=== PATIENT | female | born 1935 | race Caucasian/White ===

== ENCOUNTER → 2018-04-06 16:38 | Outpatient (CLI) | payer MEDICARE, BC, SELFPAY ==
--- NOTE | 2018-04-06 16:48 | DI.RAD.S_ITS ---
PROCEDURE: XR LUMBAR SPINE 2-3V INDICATIONS: LOW BACK PAIN TECHNIQUE: 3 views of the lumbar spine were acquired. COMPARISON: [facility], CT, KIDNEY/ URETER/BLADDER, 08/31/2017, 16:13. FINDINGS: Bones: There are 5 [id number]-fpfgjns lumbar vertebral bodies. There is grade I anterolisthesis at L4 on L5. A severe wedge compression deformity is present at L4 with approximately 50% vertebral body height loss. This is a new finding when compared with the prior CT dated 08/31/17. A moderate wedge compression deformity at L3 is redemonstrated, unchanged from the prior CT. Vertebral body height is otherwise preserved. Severe degenerative changes including intervertebral disc space narrowing, endplate sclerosis, facet sclerosis, and osteophytosis is present throughout the lumbar spine. Soft tissues: Overlying bowel gas pattern is normal. No suspicious soft tissue calcifications. IMPRESSION: 1. Severe wedge compression deformity of L4 which is new when compared with the prior comparison study dated 08/31/17. The acuity of this finding is unknown, but may be the etiology the patient's low back pain after fall. If further characterization is warranted, MRI of lumbar spine would be helpful to evaluate for marrow edema in the acute or subacute setting. Dictated by: Magalie Snyder M.D. on 04/06/2018 at 20:15 Approved by: Magalie Snyder M.D. on 04/06/2018 at 20:21
== END ==
PROVIDERS: Family Provider Internal Medicine; PCP Internal Medicine; Visit Provider Internal Medicine
DX: M54.5 Low back pain (principal)
CPT/HCPCS: 72100

== ENCOUNTER → 2018-04-20 14:22 | Outpatient (REF) | payer MEDICARE, BC, SELFPAY ==
[2018-04-20 14:27] LABS: RBC Urine None Seen (0-5/HPF)
[2018-04-20 14:33] LABS: Appearance Urine UA SL CLOUDY; Bilirubin Urine UA NEGATIVE (NEGATIVE); Color Urine UA YELLOW; Glucose Urine UA NEGATIVE (Normal); Ketones Urine UA NEGATIVE (NEGATIVE); Leukocyte Esterase Urine UA 2+ (NEGATIVE); Nitrite Urine UA POSITIVE (Negative); Occult Blood Urine UA TRACE-INTACT (Negative); Protein Urine UA NEGATIVE (Negative); Specific Gravity Urine UA 1.015 (1.000-1.035); Urobilinogen Urine UA 0.2 E.U./dL (0.2); pH Urine UA 5.5 (4.5-8.0)
[2018-04-20 14:37] LABS: Bacteria Urine Many (>30); WBC Urine 30-100/HPF (0-5/HPF)
== END ==
LOC: LAB 14:22
PROVIDERS: Family Provider Internal Medicine; PCP Internal Medicine; Visit Provider Internal Medicine
DX: R30.9 Painful micturition, unspecified (principal)
CPT/HCPCS: 81001

== ENCOUNTER → 2018-04-23 16:26 | Outpatient (CLI) | payer MEDICARE, BC, SELFPAY | PROVIDERS: Family Provider Internal Medicine; PCP Internal Medicine; Visit Provider Internal Medicine | DX: N39.0 Urinary tract infection, site not specified (principal) | CPT/HCPCS: 87077; 87086; 87186 ==

== ENCOUNTER → 2018-07-19 17:05 | Outpatient (CLI) | payer OTHER, SELFPAY ==
--- NOTE | 2018-07-19 | DI.RAD.S_ITS ---
PROCEDURE: XR LUMBAR SPINE 2-3V INDICATIONS: COMPRESSION FRACTURE TECHNIQUE: 3 views of the lumbar spine were acquired. COMPARISON: [facility], CR, XR LUMBAR SPINE 2-3V, 04/06/2018, 16:34. FINDINGS: Bones: 5 [id number] vertebrae are present. There is normal bony alignment. Compression fractures at the T10, T12, L3 and L4 levels appear unchanged compared to prior plain film series dated 04/06/18. No new compression fractures. Grade 1 spondylolisthesis L4-L5 redemonstrated. Multilevel disc degeneration, severe at the L4-L5 level. Moderate lower lumbar spine facet joint arthropathy. No suspicious bony lesions. Bones are osteopenic. Soft tissues: Overlying bowel gas pattern is normal. No suspicious soft tissue calcifications. IMPRESSION: Multilevel thoracolumbar compression fractures unchanged from prior plain film dated 04/06/18. Dictated by: Rohith MATHEW Interpreted: Mahnaz Resendiz MD on 07/20/2018 at 13:13 Approved by: Epifanio Colorado M.D. on 07/20/2018 at 13:21
== END ==
PROVIDERS: Family Provider Internal Medicine; PCP Internal Medicine; Visit Provider Psychiatry & Neurology Neurology
DX: S22.079A Unspecified fracture of T9-T10 vertebra, initial encounter for closed fracture (principal); S22.089A Unspecified fracture of T11-T12 vertebra, initial encounter for closed fracture; S32.039A Unspecified fracture of third lumbar vertebra, initial encounter for closed fracture; S32.049A Unspecified fracture of fourth lumbar vertebra, initial encounter for closed fracture
CPT/HCPCS: 72100

== ENCOUNTER → 2018-08-10 12:17 | Outpatient (CLI) | payer OTHER, SELFPAY ==
--- NOTE | 2018-08-10 | DI.MRI.S_ITS ---
PROCEDURE: MR PELVIS WO CON INDICATIONS: LOW BACK PAIN TECHNIQUE: Noncontrast coronal and axial T1 spin echo and STIR, sagittal T2 weighted, coronal oblique T1 and STIR, through the bony pelvis. COMPARISON: [facility], CR, XR LUMBAR SPINE 2-3V, 04/06/2018, 16:34. [facility], CT, KIDNEY/ URETER/BLADDER, 08/31/2017, 16:13. FINDINGS: Image quality: There is uncontrollable motion artifact despite multiple attempts. Several pulse sequences are rendered nondiagnostic due to excessive motion artifact. Bones: Bone marrow of the pelvic ring, sacrum, and proximal femurs show grossly normal signal throughout. Chronic-appearing L3 and L4 compression fractures are seen and probably unchanged since 04/06/18. Bilateral hip degeneration, left greater than right. No intraosseous lesions identified in the non-obscured pelvis. There is lower lumbar degenerative disc disease. Tendons: The gluteus medius and minimus tendons are obscured. Proximal iliotibial band appears grossly intact although partially obscured by motion artifact. The iliopsoas tendons are largely obscured by motion artifact. Hamstring origins are not well-seen due to motion artifact although no definite T2 hyperintensity in these regions. Soft tissues: Visualized muscles demonstrate normal bulk and internal signal. No joint effusions. No free pelvic fluid. Bladder wall thickness is normal. Genitourinary structures and bowel loops appear normal where visualized. IMPRESSION: Severe motion artifact renders examination nearly nondiagnostic as above. If the clinical concern is for fracture, a CT could be considered which is less prone to motion artifact. Chronic-appearing L3 and L4 compression fractures without definite vertebral body height loss since 04/06/18. Bilateral hip degeneration, left greater than right. Dictated by: Jayden Chan M.D. on 08/10/2018 at 14:13 Approved by: Jayden Chan M.D. on 08/10/2018 at 14:24
== END ==
PROVIDERS: Family Provider Internal Medicine; PCP Internal Medicine; Visit Provider Internal Medicine
DX: M54.5 Low back pain (principal); M16.0 Bilateral primary osteoarthritis of hip; M48.56XA Collapsed vertebra, not elsewhere classified, lumbar region, initial encounter for fracture
CPT/HCPCS: 72195

== ENCOUNTER 2019-05-03 14:30 | Outpatient (RCR) | payer OTHER, SELFPAY ==
--- NOTE | 2018-07-25 14:30 | PT.OPPOC ---
Current Diagnoses Multiple sclerosis (07/25/18) Unspecified osteoarthritis, unspecified site (07/25/18) Stiffness of left knee, not elsewhere classified (07/25/18) Muscle weakness (generalized) (07/25/18) Unspecified abnormalities of gait and mobility (07/25/18) Provider Visit Care Team Role Provider Type Blayne Sims MD Attending Provider Physician Family Provider Primary Care Provider Specialty: Internal Medicine Address: [address] [place] [address], [facility] Email: Plan Of Care PT-OP-T Assessment and Plan Start: 07/27/18 11:43 Freq: Status: Active Protocol: Document 07/25/18 14:30 RCC (Rec: 07/27/18 15:47 RCC [email or web address]) Physical Therapy Assessment Rehab Potential Rehabilitation Potential Good Evaluation Complexity Number of Personal Factors/Comorbidities 3 or More Number of Body Systems Impaired 4 or More Clinical Presentation at Evaluation Evolving Impairments Impairments Activity Tolerance Balance Functional Activities Functional Mobility Gait Pain ROM Soft Tissue Mobility Strength Goals Four Impairment Gait/Timed Up and Go Short Term Goal (STG) Timed Up and Go to <30 seconds . STG Duration 6 weeks Weather Reporter Goal (LTG) Timed Up and Go to <20 seconds to demonstrate improved gait speed, and decreasing fall risk. LTG Duration 12 weeks Three Impairment L knee ROM Snf Goal (LTG) 0-120 degrees of the L knee to improve gait and functional motion. Two Impairment pain in low back 7/10 Short Term Goal (STG) 5/10 pain reported in low back . STG Duration 6 weeks Snf Goal (LTG) 3/10 pain reported in low back or less to demonstrate improved thoracolumbar stability. LTG Duration 12 weeks One Impairment Lower Extremity Functional Scale (14/80) Short Term Goal (STG) Score: 20/80 STG Duration 6 weeks Snf Goal (LTG) Score: 25/80 or greater to demonstrate improvements with functional mobility. LTG Duration 12 weeks Assessment Summary Assessment Pt presents with impaired mobility and posture secondary to multiple compression fractures in the thoracolumbar spine. Pt with a h/o L distal femur fx, with limited knee ROM also contributing to impairments with gait and balance. Pt's Timed Up and Go score is indicative of a high fall risk. Pt is a good candidate for physical therapy , and would greatly benefit from skilled physical therapy intervention to progress her ROM, strength, gait, and balance to improve safety and overall function. Physical Therapy Plan Frequency and Duration Frequency of Treatment 2x/Week Duration of Treatment 12 weeks Plan of Care Start Date 07/25/18 Plan of Care End Date 10/17/18 Therapeutic Interventions Therapeutic Interventions Aquatic Therapy Balance Training Gait Training Home Exercise Program Joint Mobilizations Manual Therapy Neuromuscular Re-education Patient/Caregiver Education Self-Care/Home Management Soft Tissue Mobilization Taping Therapeutic Activities Therapeutic Exercises Modalities Cold Pack/Ice Massage Next Visit Focus/Plan Next Note Type Treatment Note Next Visit Plan prog. gait, standing balance, core stability Plan of Care Dates Plan of Care Start Date 07/25/18 Plan of Care End Date 10/17/18 Please Sign and Return: I have reviewed this Plan of Care and certify that the skilled therapy services above are required to meet the patient?s needs. Physician Signature Date Printed Name and Credentials Clinical Instructor Signature Printed Name and Credentials
--- NOTE | 2018-07-25 14:30 | PT.OIE ---
Current Diagnoses Multiple sclerosis (07/25/18) Unspecified osteoarthritis, unspecified site (07/25/18) Stiffness of left knee, not elsewhere classified (07/25/18) Muscle weakness (generalized) (07/25/18) Unspecified abnormalities of gait and mobility (07/25/18) Provider Visit Care Team Role Provider Type Blayne Sims MD Attending Provider Physician Family Provider Primary Care Provider Specialty: Internal Medicine Address: [address] [place] [address], [facility] Email: Physical Therapy Initial Evaluation PT-OP-A Visit Information Start: 07/27/18 11:43 Freq: Status: Active Protocol: Document 07/25/18 14:30 RCC (Rec: 07/27/18 11:58 RCC [email or web address]) Out-Patient Physical Therapy Visit Information Visit Information Visit Type Initial Evaluation Visit Start Time 13:45 Visit Stop Time 14:30 Total Visit Minutes 45 Visit Number 1 Number of TOBACCO BUYER Visits 0 Evaluation Information Evaluation Date 07/25/18 PT-OP-B Current Condition Start: 07/27/18 11:43 Freq: Status: Active Protocol: Document 07/25/18 14:30 RCC (Rec: 07/27/18 11:58 RCC [email or web address]) Current Condition History of Current Condition Onset Date 2016 Current Complaints L knee pain/stiffness, low back pain, impaired mobility History of Current Condition Pt is a 83 y/o female presenting to physical therapy c/o L knee pain and stiffness , low back pain, and impaired mobility. Pt has a h/o L distal femur fracture with ORIF 2016. 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 Pt has not fallen in the past 3+ months. Radiograph of lumbar spine showed compression fx's at T10, T12, L3 and L4, as well as grade 1 spondylolisthesis @ L4-5. Prior Treatments and Tests PT in past which she was d/c for multiple falls, unsafe to attend outpatient facility. Radiograph for spine showed compression fx @ T10, T12, L3 and L4. Treatment Goals Patient/Caregiver Goals improve mobility, decrease pain, improve function Prior Functional Status Baseline Function- ADL's Modified Independent Baseline Function- Mobility Modified Independent Baseline Function- Gait short distance outdoors indep. Baseline Function- Other pt was doing her own shopping prior to L distal femur fx and ORIF 07/2017 Current Functional Impairments (Reported) Functional Limitations- ADL's some assistance with cleaning Functional Limitations- Mobility/Gait modified indep. short outdoor gait on level surfaces only Personal Factors Other Personal Factors That May Effect Multiple Sclerosis, L distal Therapy/Recovery femur fx s/p ORIF 07/2017, h/o multiple falls, multiple compression fx's PT-OP-C Subjective Start: 07/27/18 11:43 Freq: Status: Active Protocol: Document 07/25/18 14:30 RCC (Rec: 07/27/18 11:58 RCC [email or web address]) Patient Questionnaires Lower Extremity Functional Scale LEFS Score 14 LEFS Impairment 80 to 99% Impaired (Score 1-16 ) OP-PT Pain Assessment Location Bilateral Lower Back Intensity 7 Scale Used Numeric (1 - 10) PT-OP-D Balance Start: 07/27/18 11:43 Freq: Status: Active Protocol: Document 07/25/18 14:30 RCC (Rec: 07/27/18 12:01 RCC [email or web address]) Balance Tests Single Limb Standing Single Limb- Right unable Single Limb- Left unable PT-OP-E Functional Tests Start: 07/27/18 11:43 Freq: Status: Active Protocol: Document 07/25/18 14:30 RCC (Rec: 07/27/18 12:02 RCC [email or web address]) Functional Tests Timed Up and Go (TUG) Score 32.18 Comments 4WW TUG Impairment Rating 100% Impaired (Score 20) PT-OP-G Mobility & Gait Start: 07/27/18 11:43 Freq: Status: Active Protocol: Document 07/25/18 14:30 RCC (Rec: 07/27/18 15:47 RCC [email or web address]) OP Mobility Evaluation Functional Movements Squats unable to perform consecutively. OP Gait Assessment Gait Gait Assistance Required: Contact Guard Assist Distance (Feet) (feet) 200 Assistive Devices Assistive Device Front Wheeled Walker Gait Deviations General Gait Pattern Antalgic Decreased Stride Length Decreased Feet Clearance Flexed Trunk Factors Limiting Gait Function Factors Limiting Gait Function Decreased Activity Tolerance Decreased Strength Limited Range of Motion Poor Balance PT-OP-K Range of Motion Start: 07/27/18 11:43 Freq: Status: Active Protocol: Document 07/25/18 14:30 RCC (Rec: 07/27/18 15:47 RCC [email or web address]) Knee Goniometric Range of Motion Knee Measured in Degrees Right Knee ROM WFL Yes Patient Position Supine Flexion Active (degrees) 125 Extension Active (degrees) 0 Left Knee ROM WFL Yes Patient Position Supine Flexion Active (degrees) 100 Extension Active (degrees) 9 PT-OP-L Special Tests Start: 07/27/18 11:43 Freq: Status: Active Protocol: Document 07/25/18 14:30 RCC (Rec: 07/27/18 15:47 [facility] [email or web address]) Special Tests Lumbar Spine Special Tests Straight Leg Raise Test Results positive on the L @ 45 deg PT-OP-M Strength Start: 07/27/18 11:43 Freq: Status: Active Protocol: Document 07/25/18 14:30 [facility] (Rec: 07/27/18 15:47 [facility] [email or web address]) Hip Strength Hip Manual Muscle Testing Left Flexion (L2) 3+ Fair+ Right Flexion (L2) 4 Good Knee Strength Knee Manual Muscle Testing Right Flexion (S2) 4+ Good+ Extension (L3) 4+ Good+ Left Flexion (S2) 4 Good Extension (L3) 3+ Fair+ Ankle/Foot Strength Ankle and Foot Manual Muscle Testing Right Dorsiflexion (L4) 5 Normal Left Dorsiflexion (L4) 4 Good PT-OP-T Assessment and Plan Start: 07/27/18 11:43 Freq: Status: Active Protocol: Document 07/25/18 14:30 [facility] (Rec: 07/27/18 15:47 [facility] [email or web address]) Physical Therapy Assessment Rehab Potential Rehabilitation Potential Good Evaluation Complexity Number of Personal Factors/Comorbidities 3 or More Number of Body Systems Impaired 4 or More Clinical Presentation at Evaluation Evolving Impairments Impairments Activity Tolerance Balance Functional Activities Functional Mobility Gait Pain ROM Soft Tissue Mobility Strength Goals Four Impairment Gait/Timed Up and Go Short Term Goal (STG) Timed Up and Go to <30 seconds . STG Duration 6 weeks Manager Data Center Goal (LTG) Timed Up and Go to <20 seconds to demonstrate improved gait speed, and decreasing fall risk. LTG Duration 12 weeks Three Impairment L knee ROM Half-Way Goal (LTG) 0-120 degrees of the L knee to improve gait and functional motion. Two Impairment pain in low back 7/10 Short Term Goal (STG) 5/10 pain reported in low back . STG Duration 6 weeks Manager Data Center Goal (LTG) 3/10 pain reported in low back or less to demonstrate improved thoracolumbar stability. LTG Duration 12 weeks One Impairment Lower Extremity Functional Scale (14/80) Short Term Goal (STG) Score: 20/80 STG Duration 6 weeks Half-Way Goal (LTG) Score: 25/80 or greater to demonstrate improvements with functional mobility. LTG Duration 12 weeks Assessment Summary Assessment Pt presents with impaired mobility and posture secondary to multiple compression fractures in the thoracolumbar spine. Pt with a h/o L distal femur fx, with limited knee ROM also contributing to impairments with gait and balance. Pt's Timed Up and Go score is indicative of a high fall risk. Pt is a good candidate for physical therapy , and would greatly benefit from skilled physical therapy intervention to progress her ROM, strength, gait, and balance to improve safety and overall function. Physical Therapy Plan Frequency and Duration Frequency of Treatment 2x/Week Duration of Treatment 12 weeks Plan of Care Start Date 07/25/18 Plan of Care End Date 10/17/18 Therapeutic Interventions Therapeutic Interventions Aquatic Therapy Balance Training Gait Training Home Exercise Program Joint Mobilizations Manual Therapy Neuromuscular Re-education Patient/Caregiver Education Self-Care/Home Management Soft Tissue Mobilization Taping Therapeutic Activities Therapeutic Exercises Modalities Cold Pack/Ice Massage Next Visit Focus/Plan Next Note Type Treatment Note Next Visit Plan prog. gait, standing balance, core stability
--- NOTE | 2018-08-09 16:45 | PT.OTN ---
Current Diagnoses Multiple sclerosis (08/09/18) Unspecified osteoarthritis, unspecified site (08/09/18) Physical Therapy Treatment Note PT-OP-A Visit Information Start: 07/27/18 11:43 Freq: Status: Active Protocol: Document 08/09/18 16:45 RCC (Rec: 08/10/18 09:01 RCC [email or web address]) Out-Patient Physical Therapy Visit Information Visit Information Visit Type Treatment Note Visit Start Time 15:50 Visit Stop Time 16:45 Total Visit Minutes 55 Visit Number 2 Number of HIDE CURER Visits 0 Evaluation Information Evaluation Date 07/25/18 PT-OP-B Current Condition Start: 07/27/18 11:43 Freq: Status: Active Protocol: Document 07/25/18 14:30 RCC (Rec: 07/27/18 11:58 RCC [email or web address]) Current Condition History of Current Condition Onset Date 2016 Current Complaints L knee pain/stiffness, low back pain, impaired mobility History of Current Condition Pt is a 83 y/o female presenting to physical therapy c/o L knee pain and stiffness , low back pain, andimpaired mobility. Pt has a h/o L distal femur fracture with ORIF 2016. 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 Pt has not fallen in the past 3+ months. Radiograph of lumbar spine showed compression fx's at T10, T12, L3 and L4, as well as grade 1 spondylolisthesis @ L4-5. Prior Treatments and Tests PT in past which she was d/c for multiple falls, unsafe to attend outpatient facility. Radiograph for spine showed compression fx @ T10, T12, L3 and L4. Treatment Goals Patient/Caregiver Goals improve mobility, decrease pain, improve function Prior Functional Status Baseline Function- ADL's Modified Independent Baseline Function- Mobility Modified Independent Baseline Function- Gait short distance outdoors indep. Baseline Function- Other pt was doing her own shopping prior to L distal femur fx and ORIF 07/2017 Current Functional Impairments (Reported) Functional Limitations- ADL's some assistance with cleaning Functional Limitations- Mobility/Gait modified indep. short outdoor gait on level surfaces only Personal Factors Other Personal Factors That May Effect Multiple Sclerosis, L distal Therapy/Recovery femur fx s/p ORIF 07/2017, h/o multiple falls, multiple compression fx's PT-OP-C Subjective Start: 07/27/18 11:43 Freq: Status: Active Protocol: Document 08/09/18 16:45 RCC (Rec: 08/10/18 09:01 RCC [email or web address]) OP-PT Subjective Patient Comments Patient Comments pt states she is having a difficult time with her L knee ROM. She is having an MRI on her back tomorrow. PT-OP-D Balance Start: 07/27/18 11:43 Freq: Status: Active Protocol: Document 07/25/18 14:30 RCC (Rec: 07/27/18 12:01 RCC [email or web address]) Balance Tests Single Limb Standing Single Limb- Right unable Single Limb- Left unable PT-OP-E Functional Tests Start: 07/27/18 11:43 Freq: Status: Active Protocol: Document 07/25/18 14:30 RCC (Rec: 07/27/18 12:02 RCC [email or web address]) Functional Tests Timed Up and Go (TUG) Score 32.18 Comments 4WW TUG Impairment Rating 100% Impaired (Score 20) PT-OP-G Mobility & Gait Start: 07/27/18 11:43 Freq: Status: Active Protocol: Document 07/25/18 14:30 RCC (Rec: 07/27/18 15:47 RCC [email or web address]) OP Mobility Evaluation Functional Movements Squats unable to perform consecutively. OP Gait Assessment Gait Gait Assistance Required: Contact Guard Assist Distance (Feet) 200 Assistive Devices Assistive Device Front Wheeled Walker Gait Deviations General Gait Pattern Antalgic Decreased Stride Length Decreased Feet Clearance Flexed Trunk Factors Limiting Gait Function Factors Limiting Gait Function Decreased Activity Tolerance Decreased Strength Limited Range of Motion Poor Balance PT-OP-K Range of Motion Start: 07/27/18 11:43 Freq: Status: Active Protocol: Document 07/25/18 14:30 RCC (Rec: 07/27/18 15:47 RCC [email or web address]) Knee Goniometric Range of Motion Knee Measured in Degrees Right Knee ROM WFL Yes Patient Position Supine Flexion Active (degrees) 125 Extension Active (degrees) 0 Left Knee ROM WFL Yes Patient Position Supine Flexion Active (degrees) 100 Extension Active (degrees) 9 PT-OP-L Special Tests Start: 07/27/18 11:43 Freq: Status: Active Protocol: Document 07/25/18 14:30 RCC (Rec: 07/27/18 15:47 RCC [email or web address]) Special Tests Lumbar Spine Special Tests Straight Leg Raise Test Results positive on the L @ 45 deg PT-OP-M Strength Start: 07/27/18 11:43 Freq: Status: Active Protocol: Document 07/25/18 14:30 RCC (Rec: 07/27/18 15:47 RCC [email or web address]) Hip Strength Hip Manual Muscle Testing Left Flexion (L2) 3+ Fair+ Right Flexion (L2) 4 Good Knee Strength Knee Manual Muscle Testing Right Flexion (S2) 4+ Good+ Extension (L3) 4+ Good+ Left Flexion (S2) 4 Good Extension (L3) 3+ Fair+ Ankle/Foot Strength Ankle and Foot Manual Muscle Testing Right Dorsiflexion (L4) 5 Normal Left Dorsiflexion (L4) 4 Good PT-OP-Q Treatments Start: 07/27/18 11:43 Freq: Status: Active Protocol: Document 08/09/18 16:45 RCC (Rec: 08/10/18 09:01 RCC [email or web address]) Cardio Equipment Bicycle (Upright) Duration (Minutes) 10 Resistance 1 Other for ROM Gym Equipment Shuttle Recovery Bilateral Squats Resistance 25 Shuttle Recovery Platform Stable Reps/Time 2x15 Therapeutic Exercises Supine Exercises QS Supine Exercise Name quad set Side left Standing Exercises HC stretch Standing Exercise Name heel cord stretch Side bilateral Equipment Used DAGO HS stretch Standing Exercise Name hamstring stretch @ stairs Side left Comments neutral back VC Manual Therapy Treatment Soft Tissue Mobilization scar tissue Body Location lateral L thigh Mobilization Type Other Intensity/Depth Moderate Body Position Hooklying Joint Mobilizations PF Joint patellofemoral Direction medial, inf, superior Grade III Body Position Supine Taping kinesiotape Body Location L knee Treatment Focus medial patellar tracking Type of Tape Kinesio Tape Comments 2 Y strips anterior knee, 1 Y strip for medial patellar glide Neuro Re-Education Treatment Balance Activities balance board Details A/P and lateral standing in // bars Comments weight shifting A/P and lateral, static balance PT-OP-R Modalities Start: 07/27/18 11:43 Freq: Status: Active Protocol: Document 08/09/18 16:45 RCC (Rec: 08/10/18 09:01 RCC [email or web address]) Hot Pack/Cold Pack Treatment Cold Pack Location low back Patient Position Hooklying Treatment Duration (minutes) 10 Patient Tolerance Good Comments bolster PT-OP-T Assessment and Plan Start: 07/27/18 11:43 Freq: Status: Active Protocol: Document 08/09/18 16:45 RCC (Rec: 08/10/18 09:01 RCC [email or web address]) Physical Therapy Assessment Assessment Summary Assessment Pt with significant stiffness in the L patellofemoral joint, limiting her knee ROM and function. Emphasis with standing balance on activating transverse abdominals and low back posture in standing stretching. Physical Therapy Plan Frequency and Duration Frequency of Treatment 2x/Week Duration of Treatment 12 weeks Plan of Care Start Date 07/25/18 Plan of Care End Date 10/17/18 Next Visit Focus/Plan Next Note Type Treatment Note Next Visit Plan prog. core stability, log roll
--- NOTE | 2018-08-16 15:15 | PT.OTN ---
Current Diagnoses Multiple sclerosis (08/16/18) Unspecified osteoarthritis, unspecified site (08/16/18) Physical Therapy Treatment Note PT-OP-A Visit Information Start: 07/27/18 11:43 Freq: Status: Active Protocol: Document 08/16/18 15:15 [facility] (Rec: 08/17/18 14:27 [facility] [email or web address]) Out-Patient Physical Therapy Visit Information Visit Information Visit Type Treatment Note Visit Start Time 14:37 Visit Stop Time 15:15 Total Visit Minutes 38 Visit Number 3 Number of [employer] Visits 0 Evaluation Information Evaluation Date 07/25/18 PT-OP-B Current Condition Start: 07/27/18 11:43 Freq: Status: Active Protocol: Document 07/25/18 14:30 RCC (Rec: 07/27/18 11:58 [facility] [email or web address]) Current Condition History of Current Condition Onset Date 2016 Current Complaints L knee pain/stiffness, low back pain, impaired mobility History of Current Condition Pt is a 83 y/o female presenting to physical therapy c/o L knee pain and stiffness , low back pain, andimpaired mobility. Pt has a h/o L distal femur fracture with ORIF 2016. 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 Pt has not fallen in the past 3+ months. Radiograph of lumbar spine showed compression fx's at T10, T12, L3 and L4, as well as grade 1 spondylolisthesis @ L4-5. Prior Treatments and Tests PT in past which she was d/c for multiple falls, unsafe to attend outpatient facility. Radiograph for spine showed compression fx @ T10, T12, L3 and L4. Treatment Goals Patient/Caregiver Goals improve mobility, decrease pain, improve function Prior Functional Status Baseline Function- ADL's Modified Independent Baseline Function- Mobility Modified Independent Baseline Function- Gait short distance outdoors indep. Baseline Function- Other pt was doing her own shopping prior to L distal femur fx and ORIF 07/2017 Current Functional Impairments (Reported) Functional Limitations- ADL's some assistance with cleaning Functional Limitations- Mobility/Gait modified indep. short outdoor gait on level surfaces only Personal Factors Other Personal Factors That May Effect Multiple Sclerosis, L distal Therapy/Recovery femur fx s/p ORIF 07/2017, h/o multiple falls, multiple compression fx's PT-OP-C Subjective Start: 07/27/18 11:43 Freq: Status: Active Protocol: Document 08/16/18 15:15 RCC (Rec: 08/17/18 14:27 [facility] [email or web address]) OP-PT Subjective Patient Comments Patient Comments Pt states that her L knee has been sore. She still does not feel secure walking without 4WW. PT-OP-D Balance Start: 07/27/18 11:43 Freq: Status: Active Protocol: Document 07/25/18 14:30 RCC (Rec: 07/27/18 12:01 [facility] [email or web address]) Balance Tests Single Limb Standing Single Limb- Right unable Single Limb- Left unable PT-OP-E Functional Tests Start: 07/27/18 11:43 Freq: Status: Active Protocol: Document 07/25/18 14:30 [facility] (Rec: 07/27/18 12:02 [facility] [email or web address]) Functional Tests Timed Up and Go (TUG) Score 32.18 Comments 4WW TUG Impairment Rating 100% Impaired (Score 20) PT-OP-F Manual Assessment Start: 07/27/18 11:43 Freq: Status: Active Protocol: Document 08/16/18 15:15 RCC (Rec: 08/17/18 14:27 [facility] [email or web address]) Manual Assessments Joint Mobility Assessment Joint Mobility Assessment hypomobility L patellofemoral joint medial, inferior and superior glide PT-OP-G Mobility & Gait Start: 07/27/18 11:43 Freq: Status: Active Protocol: Document 07/25/18 14:30 RCC (Rec: 07/27/18 15:47 [facility] [email or web address]) OP Mobility Evaluation Functional Movements Squats unable to perform consecutively. OP Gait Assessment Gait Gait Assistance Required: Contact Guard Assist Distance (Feet) 200 Assistive Devices Assistive Device Front Wheeled Walker Gait Deviations General Gait Pattern Antalgic Decreased Stride Length Decreased Feet Clearance Flexed Trunk Factors Limiting Gait Function Factors Limiting Gait Function Decreased Activity Tolerance Decreased Strength Limited Range of Motion Poor Balance PT-OP-K Range of Motion Start: 07/27/18 11:43 Freq: Status: Active Protocol: Document 07/25/18 14:30 RCC (Rec: 07/27/18 15:47 [facility] [email or web address]) Knee Goniometric Range of Motion Knee Measured in Degrees Right Knee ROM WFL Yes Patient Position Supine Flexion Active (degrees) 125 Extension Active (degrees) 0 Left Knee ROM WFL Yes Patient Position Supine Flexion Active (degrees) 100 Extension Active (degrees) 9 PT-OP-L Special Tests Start: 07/27/18 11:43 Freq: Status: Active Protocol: Document 07/25/18 14:30 RCC (Rec: 07/27/18 15:47 [facility] [email or web address]) Special Tests Lumbar Spine Special Tests Straight Leg Raise Test Results positive on the L @ 45 deg PT-OP-M Strength Start: 07/27/18 11:43 Freq: Status: Active Protocol: Document 07/25/18 14:30 RCC (Rec: 07/27/18 15:47 [facility] [email or web address]) Hip Strength Hip Manual Muscle Testing Left Flexion (L2) 3+ Fair+ Right Flexion (L2) 4 Good Knee Strength Knee Manual Muscle Testing Right Flexion (S2) 4+ Good+ Extension (L3) 4+ Good+ Left Flexion (S2) 4 Good Extension (L3) 3+ Fair+ Ankle/Foot Strength Ankle and Foot Manual Muscle Testing Right Dorsiflexion (L4) 5 Normal Left Dorsiflexion (L4) 4 Good PT-OP-Q Treatments Start: 07/27/18 11:43 Freq: Status: Active Protocol: Document 08/16/18 15:15 RCC (Rec: 08/17/18 14:27 RCC [email or web address]) Cardio Equipment Recumbent Elliptical (Letsdecco) Duration (Minutes) 6 Resistance 1 Therapeutic Exercises Supine Exercises LTR Supine Exercise Name lower trunk rotation Side bilateral Equipment Used 55 cm ball Reps/Minutes 10 each direction TrAb activation Supine Exercise Name transverse abdominal activation Side bilateral Reps/Minutes 15 Comments 5 sec hold DKC Supine Exercise Name knee flex/ext on 55 cm ball Side bilateral QS Supine Exercise Name quad set Side left Standing Exercises HC stretch Standing Exercise Name heel cord stretch Side bilateral Equipment Used DAGO Manual Therapy Treatment Soft Tissue Mobilization L quadriceps Body Location L quadriceps Mobilization Type Rolling Intensity/Depth Moderate Body Position Hooklying scar tissue Body Location lateral L thigh Mobilization Type Other Intensity/Depth Moderate Body Position Hooklying Joint Mobilizations PF Joint patellofemoral Direction medial, inf, superior Grade III Body Position Supine PT-OP-R Modalities Start: 07/27/18 11:43 Freq: Status: Active Protocol: Document 08/09/18 16:45 RCC (Rec: 08/10/18 09:01 RCC [email or web address]) Hot Pack/Cold Pack Treatment Cold Pack Location low back Patient Position Hooklying Treatment Duration (minutes) 10 Patient Tolerance Good Comments arelisster PT-OP-T Assessment and Plan Start: 07/27/18 11:43 Freq: Status: Active Protocol: Document 08/16/18 15:15 RCC (Rec: 08/17/18 14:27 RCC [email or web address]) Physical Therapy Assessment Assessment Summary Assessment Pt with overall tension and difficulty relaxing the LLE. L patella still sits lateral and tilting laterally. Improved L knee ROM after manual therapy, and tolerated recumbent stepper > upright bike (performed upright bike in past). Physical Therapy Plan Frequency and Duration Frequency of Treatment 2x/Week Duration of Treatment 12 weeks Plan of Care Start Date 07/25/18 Plan of Care End Date 10/17/18 Next Visit Focus/Plan Next Note Type Treatment Note Next Visit Plan prog. LE strength, TrAb activation with STS and movements.
--- NOTE | 2018-08-22 14:30 | PT.OTN ---
Current Diagnoses Multiple sclerosis (08/22/18) Unspecified osteoarthritis, unspecified site (08/22/18) Physical Therapy Treatment Note PT-OP-A Visit Information Start: 07/27/18 11:43 Freq: Status: Active Protocol: Document 08/22/18 14:30 RCC (Rec: 08/22/18 17:37 [facility] [email or web address]) Out-Patient Physical Therapy Visit Information Visit Information Visit Type Treatment Note Visit Start Time 13:45 Visit Stop Time 14:37 Total Visit Minutes 52 Visit Number 4 Number of [employer] Visits 0 Evaluation Information Evaluation Date 07/25/18 PT-OP-B Current Condition Start: 07/27/18 11:43 Freq: Status: Active Protocol: Document 07/25/18 14:30 RCC (Rec: 07/27/18 11:58 RCC [email or web address]) Current Condition History of Current Condition Onset Date 2016 Current Complaints L knee pain/stiffness, low back pain, impaired mobility History of Current Condition Pt is a 83 y/o female presenting to physical therapy c/o L knee pain and stiffness , low back pain, andimpaired mobility. Pt has a h/o L distal femur fracture with ORIF 2016. 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 Pt has not fallen in the past 3+ months. Radiograph of lumbar spine showed compression fx's at T10, T12, L3 and L4, as well as grade 1 spondylolisthesis @ L4-5. Prior Treatments and Tests PT in past which she was d/c for multiple falls, unsafe to attend outpatient facility. Radiograph for spine showed compression fx @ T10, T12, L3 and L4. Treatment Goals Patient/Caregiver Goals improve mobility, decrease pain, improve function Prior Functional Status Baseline Function- ADL's Modified Independent Baseline Function- Mobility Modified Independent Baseline Function- Gait short distance outdoors indep. Baseline Function- Other pt was doing her own shopping prior to L distal femur fx and ORIF 07/2017 Current Functional Impairments (Reported) Functional Limitations- ADL's some assistance with cleaning Functional Limitations- Mobility/Gait modified indep. short outdoor gait on level surfaces only Personal Factors Other Personal Factors That May Effect Multiple Sclerosis, L distal Therapy/Recovery femur fx s/p ORIF 07/2017, h/o multiple falls, multiple compression fx's PT-OP-C Subjective Start: 07/27/18 11:43 Freq: Status: Active Protocol: Document 08/22/18 14:30 [facility] (Rec: 08/22/18 17:37 [facility] [email or web address]) OP-PT Subjective Patient Comments Patient Comments Pt notes that her L knee has felt a little more loose this week. She is able to do her stationary cycling at home, about 5 min, which she used to be able to do for 30 min. Patient Reported Progress Improving PT-OP-D Balance Start: 07/27/18 11:43 Freq: Status: Active Protocol: Document 07/25/18 14:30 [facility] (Rec: 07/27/18 12:01 [facility] [email or web address]) Balance Tests Single Limb Standing Single Limb- Right unable Single Limb- Left unable PT-OP-E Functional Tests Start: 07/27/18 11:43 Freq: Status: Active Protocol: Document 07/25/18 14:30 [facility] (Rec: 07/27/18 12:02 [facility] [email or web address]) Functional Tests Timed Up and Go (TUG) Score 32.18 Comments 4WW TUG Impairment Rating 100% Impaired (Score 20) PT-OP-F Manual Assessment Start: 07/27/18 11:43 Freq: Status: Active Protocol: Document 08/16/18 15:15 [facility] (Rec: 08/17/18 14:27 [facility] [email or web address]) Manual Assessments Joint Mobility Assessment Joint Mobility Assessment hypomobility L patellofemoral joint medial, inferior and superior glide PT-OP-G Mobility & Gait Start: 07/27/18 11:43 Freq: Status: Active Protocol: Document 07/25/18 14:30 [facility] (Rec: 07/27/18 15:47 [facility] [email or web address]) OP Mobility Evaluation Functional Movements Squats unable to perform consecutively. OP Gait Assessment Gait Gait Assistance Required: Contact Guard Assist Distance (Feet) 200 Assistive Devices Assistive Device Front Wheeled Walker Gait Deviations General Gait Pattern Antalgic Decreased Stride Length Decreased Feet Clearance Flexed Trunk Factors Limiting Gait Function Factors Limiting Gait Function Decreased Activity Tolerance Decreased Strength Limited Range of Motion Poor Balance PT-OP-K Range of Motion Start: 07/27/18 11:43 Freq: Status: Active Protocol: Document 07/25/18 14:30 [facility] (Rec: 07/27/18 15:47 [facility] [email or web address]) Knee Goniometric Range of Motion Knee Measured in Degrees Right Knee ROM WFL Yes Patient Position Supine Flexion Active (degrees) 125 Extension Active (degrees) 0 Left Knee ROM WFL Yes Patient Position Supine Flexion Active (degrees) 100 Extension Active (degrees) 9 PT-OP-L Special Tests Start: 07/27/18 11:43 Freq: Status: Active Protocol: Document 07/25/18 14:30 [facility] (Rec: 07/27/18 15:47 [facility] [email or web address]) Special Tests Lumbar Spine Special Tests Straight Leg Raise Test Results positive on the L @ 45 deg PT-OP-M Strength Start: 07/27/18 11:43 Freq: Status: Active Protocol: Document 07/25/18 14:30 [facility] (Rec: 07/27/18 15:47 [facility] [email or web address]) Hip Strength Hip Manual Muscle Testing Left Flexion (L2) 3+ Fair+ Right Flexion (L2) 4 Good Knee Strength Knee Manual Muscle Testing Right Flexion (S2) 4+ Good+ Extension (L3) 4+ Good+ Left Flexion (S2) 4 Good Extension (L3) 3+ Fair+ Ankle/Foot Strength Ankle and Foot Manual Muscle Testing Right Dorsiflexion (L4) 5 Normal Left Dorsiflexion (L4) 4 Good PT-OP-Q Treatments Start: 07/27/18 11:43 Freq: Status: Active Protocol: Document 08/22/18 14:30 RCC (Rec: 08/22/18 17:37 RCC [email or web address]) Cardio Equipment Recumbent Elliptical (Biodex) Duration (Minutes) 6 Resistance 1 Seat Position 7 Gym Equipment Shuttle Recovery Bilateral Squats Resistance 50 Shuttle Recovery Platform Stable Reps/Time 2x15 Therapeutic Exercises Supine Exercises SLR Supine Exercise Name straight leg raise (flexion)- neutral and ER of LLE Side left Reps/Minutes 8 each Bridging Supine Exercise Name bridging Side bilateral Reps/Minutes 10 LTR Supine Exercise Name lower trunk rotation Side bilateral Equipment Used 55 cm ball Reps/Minutes 10 each direction TrAb activation Supine Exercise Name transverse abdominal activation Side bilateral Equipment Used 55 cm ball Reps/Minutes 15 Comments 5 sec hold DKC Supine Exercise Name knee flex/ext on 55 cm ball Side bilateral Manual Therapy Treatment Soft Tissue Mobilization L quadriceps Body Location L quadriceps Mobilization Type Rolling Intensity/Depth Moderate Body Position Hooklying scar tissue Body Location lateral L thigh Mobilization Type Other Intensity/Depth Moderate Body Position Hooklying Joint Mobilizations PF Joint patellofemoral Direction medial, inf, superior Grade III Body Position Supine PT-OP-R Modalities Start: 07/27/18 11:43 Freq: Status: Active Protocol: Document 08/22/18 14:30 RCC (Rec: 08/22/18 17:37 [facility] [email or web address]) Hot Pack/Cold Pack Treatment Cold Pack Location low back Patient Position Hooklying Treatment Duration (minutes) 10 Patient Tolerance Good Comments bolster PT-OP-T Assessment and Plan Start: 07/27/18 11:43 Freq: Status: Active Protocol: Document 08/22/18 14:30 RCC (Rec: 08/22/18 17:37 [facility] [email or web address]) Physical Therapy Assessment Assessment Summary Assessment Pt's L patellofemoral joint less hypomobile today, and increased tolerance to knee flexion with recumbent bike and leg press. Her L patella is still severely tilted laterally, and requires reminders for TrAb activation with activities. Physical Therapy Plan Frequency and Duration Frequency of Treatment 2x/Week Duration of Treatment 12 weeks Plan of Care Start Date 07/25/18 Plan of Care End Date 10/17/18 Next Visit Focus/Plan Next Note Type Treatment Note Next Visit Plan prog. core stability and L knee ROM and strength
--- NOTE | 2018-08-24 14:30 | PT.OTN ---
Current Diagnoses Multiple sclerosis (08/24/18) Unspecified osteoarthritis, unspecified site (08/24/18) Physical Therapy Treatment Note PT-OP-A Visit Information Start: 07/27/18 11:43 Freq: Status: Active Protocol: Document 08/24/18 14:30 RCC (Rec: 08/26/18 13:21 RCC [email or web address]) Out-Patient Physical Therapy Visit Information Visit Information Visit Type Treatment Note Visit Start Time 13:45 Visit Stop Time 14:33 Total Visit Minutes 48 Visit Number 5 Number of [employer] Visits 0 Evaluation Information Evaluation Date 07/25/18 PT-OP-B Current Condition Start: 07/27/18 11:43 Freq: Status: Active Protocol: Document 07/25/18 14:30 RCC (Rec: 07/27/18 11:58 RCC [email or web address]) Current Condition History of Current Condition Onset Date 2016 Current Complaints L knee pain/stiffness, low back pain, impaired mobility History of Current Condition Pt is a 83 y/o female presenting to physical therapy c/o L knee pain and stiffness , low back pain, andimpaired mobility. Pt has a h/o L distal femur fracture with ORIF 2016. 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 Pt has not fallen in the past 3+ months. Radiograph of lumbar spine showed compression fx's at T10, T12, L3 and L4, as well as grade 1 spondylolisthesis @ L4-5. Prior Treatments and Tests PT in past which she was d/c for multiple falls, unsafe to attend outpatient facility. Radiograph for spine showed compression fx @ T10, T12, L3 and L4. Treatment Goals Patient/Caregiver Goals improve mobility, decrease pain, improve function Prior Functional Status Baseline Function- ADL's Modified Independent Baseline Function- Mobility Modified Independent Baseline Function- Gait short distance outdoors indep. Baseline Function- Other pt was doing her own shopping prior to L distal femur fx and ORIF 07/2017 Current Functional Impairments (Reported) Functional Limitations- ADL's some assistance with cleaning Functional Limitations- Mobility/Gait modified indep. short outdoor gait on level surfaces only Personal Factors Other Personal Factors That May Effect Multiple Sclerosis, L distal Therapy/Recovery femur fx s/p ORIF 07/2017, h/o multiple falls, multiple compression fx's PT-OP-C Subjective Start: 07/27/18 11:43 Freq: Status: Active Protocol: Document 08/24/18 14:30 RCC (Rec: 08/26/18 13:21 RCC [email or web address]) OP-PT Subjective Patient Comments Patient Comments Pt reports the pain in her back is lessening somewhat, but still with LLE pain with transitional movements. PT-OP-D Balance Start: 07/27/18 11:43 Freq: Status: Active Protocol: Document 07/25/18 14:30 RCC (Rec: 07/27/18 12:01 RCC [email or web address]) Balance Tests Single Limb Standing Single Limb- Right unable Single Limb- Left unable PT-OP-E Functional Tests Start: 07/27/18 11:43 Freq: Status: Active Protocol: Document 07/25/18 14:30 RCC (Rec: 07/27/18 12:02 RCC [email or web address]) Functional Tests Timed Up and Go (TUG) Score 32.18 Comments 4WW TUG Impairment Rating 100% Impaired (Score 20) PT-OP-F Manual Assessment Start: 07/27/18 11:43 Freq: Status: Active Protocol: Document 08/16/18 15:15 RCC (Rec: 08/17/18 14:27 RCC [email or web address]) Manual Assessments Joint Mobility Assessment Joint Mobility Assessment hypomobility L patellofemoral joint medial, inferior and superior glide PT-OP-G Mobility & Gait Start: 07/27/18 11:43 Freq: Status: Active Protocol: Document 08/24/18 14:30 RCC (Rec: 08/26/18 13:21 RCC [email or web address]) OP Gait Assessment Comments Gait Comments decreased step length on the R , occasional decreased foot clearance bilaterally. PT-OP-K Range of Motion Start: 07/27/18 11:43 Freq: Status: Active Protocol: Document 07/25/18 14:30 RCC (Rec: 07/27/18 15:47 RCC [email or web address]) Knee Goniometric Range of Motion Knee Measured in Degrees Right Knee ROM WFL Yes Patient Position Supine Flexion Active (degrees) 125 Extension Active (degrees) 0 Left Knee ROM WFL Yes Patient Position Supine Flexion Active (degrees) 100 Extension Active (degrees) 9 PT-OP-L Special Tests Start: 07/27/18 11:43 Freq: Status: Active Protocol: Document 07/25/18 14:30 RCC (Rec: 07/27/18 15:47 RCC [email or web address]) Special Tests Lumbar Spine Special Tests Straight Leg Raise Test Results positive on the L @ 45 deg PT-OP-M Strength Start: 07/27/18 11:43 Freq: Status: Active Protocol: Document 07/25/18 14:30 RCC (Rec: 07/27/18 15:47 RCC [email or web address]) Hip Strength Hip Manual Muscle Testing Left Flexion (L2) 3+ Fair+ Right Flexion (L2) 4 Good Knee Strength Knee Manual Muscle Testing Right Flexion (S2) 4+ Good+ Extension (L3) 4+ Good+ Left Flexion (S2) 4 Good Extension (L3) 3+ Fair+ Ankle/Foot Strength Ankle and Foot Manual Muscle Testing Right Dorsiflexion (L4) 5 Normal Left Dorsiflexion (L4) 4 Good PT-OP-Q Treatments Start: 07/27/18 11:43 Freq: Status: Active Protocol: Document 08/24/18 14:30 [facility] (Rec: 08/26/18 13:21 [facility] [email or web address]) Gait Training Gait Activity 1 Description gait in // bars, no 4WW Device Used // bars Level of Assistance SBA, verbal cuing Surface level Treatment Focus step length, foot clearance, L knee flexion and push off Comments gait back & forth in // bars, weight shifting forward/ backward, push off training. Manual Therapy Treatment Soft Tissue Mobilization L quadriceps Body Location L quadriceps Mobilization Type Rolling Intensity/Depth Moderate Body Position Hooklying scar tissue Body Location lateral L thigh Mobilization Type Other Intensity/Depth Moderate Body Position Hooklying Joint Mobilizations PF Joint patellofemoral Direction medial, inf, superior Grade III Body Position Supine PT-OP-R Modalities Start: 07/27/18 11:43 Freq: Status: Active Protocol: Document 08/24/18 14:30 [facility] (Rec: 08/26/18 13:21 [facility] [email or web address]) Hot Pack/Cold Pack Treatment Cold Pack Location L knee Patient Position Hooklying Treatment Duration (minutes) 10 Patient Tolerance Good Comments [email or web address] PT-OP-T Assessment and Plan Start: 07/27/18 11:43 Freq: Status: Active Protocol: Document 08/24/18 14:30 [facility] (Rec: 08/26/18 13:21 [facility] [email or web address]) Physical Therapy Assessment Assessment Summary Assessment Pt required extensive cuing for gait in the parallel bars, but able to respond well to treatment and ambulate with improved push-off and knee flexion of the LLE after training, and good carry over to using her 4WW after training. Physical Therapy Plan Frequency and Duration Frequency of Treatment 2x/Week Duration of Treatment 12 weeks Plan of Care Start Date 07/25/18 Plan of Care End Date 10/17/18 Next Visit Focus/Plan Next Note Type Treatment Note Next Visit Plan cont. core stability, L knee ROM and strength, gait.
--- NOTE | 2018-08-29 14:30 | PT.OTN ---
Current Diagnoses Multiple sclerosis (08/29/18) Unspecified osteoarthritis, unspecified site (08/29/18) Physical Therapy Treatment Note PT-OP-A Visit Information Start: 07/27/18 11:43 Freq: Status: Active Protocol: Document 08/29/18 14:30 RCC (Rec: 08/29/18 15:22 [email or web address]) Out-Patient Physical Therapy Visit Information Visit Information Visit Type Treatment Note Visit Start Time 13:45 Visit Stop Time 14:38 Total Visit Minutes 53 Visit Number 6 Number of CIVIL DESIGNER Visits 0 Evaluation Information Evaluation Date 07/25/18 PT-OP-B Current Condition Start: 07/27/18 11:43 Freq: Status: Active Protocol: Document 07/25/18 14:30 RCC (Rec: 07/27/18 11:58 [email or web address]) Current Condition History of Current Condition Onset Date 2016 Current Complaints L knee pain/stiffness, low back pain, impaired mobility History of Current Condition Pt is a 83 y/o female presenting to physical therapy c/o L knee pain and stiffness , low back pain, and impaired mobility. Pt has a h/o L distal femur fracture with ORIF 2016. 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 Pt has not fallen in the past 3+ months. Radiograph of lumbar spine showed compression fx's at T10, T12, L3 and L4, as well as grade 1 spondylolisthesis @ L4-5. Prior Treatments and Tests PT in past which she was d/c for multiple falls, unsafe to attend outpatient facility. Radiograph for spine showed compression fx @ T10, T12, L3 and L4. Treatment Goals Patient/Caregiver Goals improve mobility, decrease pain, improve function Prior Functional Status Baseline Function- ADL's Modified Independent Baseline Function- Mobility Modified Independent Baseline Function- Gait short distance outdoors indep. Baseline Function- Other pt was doing her own shopping prior to L distal femur fx and ORIF 07/2017 Current Functional Impairments (Reported) Functional Limitations- ADL's some assistance with cleaning Functional Limitations- Mobility/Gait modified indep. short outdoor gait on level surfaces only Personal Factors Other Personal Factors That May Effect Multiple Sclerosis, L distal Therapy/Recovery femur fx s/p ORIF 07/2017, h/o multiple falls, multiple compression fx's PT-OP-C Subjective Start: 07/27/18 11:43 Freq: Status: Active Protocol: Document 08/29/18 14:30 RCC (Rec: 08/29/18 15:22 RCC [email or web address]) OP-PT Subjective Patient Comments Patient Comments Pt states that her L knee and lateral thigh has been a little more painful today in WB, but better now than earlier this date. She is up to 20 min on her bike at home. PT-OP-D Balance Start: 07/27/18 11:43 Freq: Status: Active Protocol: Document 07/25/18 14:30 RCC (Rec: 07/27/18 12:01 RCC [email or web address]) Balance Tests Single Limb Standing Single Limb- Right unable Single Limb- Left unable PT-OP-E Functional Tests Start: 07/27/18 11:43 Freq: Status: Active Protocol: Document 07/25/18 14:30 RCC (Rec: 07/27/18 12:02 RCC [email or web address]) Functional Tests Timed Up and Go (TUG) Score 32.18 Comments 4WW TUG Impairment Rating 100% Impaired (Score 20) PT-OP-F Manual Assessment Start: 07/27/18 11:43 Freq: Status: Active Protocol: Document 08/16/18 15:15 RCC (Rec: 08/17/18 14:27 RCC [email or web address]) Manual Assessments Joint Mobility Assessment Joint Mobility Assessment hypomobility L patellofemoral joint medial, inferior and superior glide PT-OP-G Mobility & Gait Start: 07/27/18 11:43 Freq: Status: Active Protocol: Document 08/24/18 14:30 RCC (Rec: 08/26/18 13:21 RCC [email or web address]) OP Gait Assessment Comments Gait Comments decreased step length on the R , occasional decreased foot clearance bilaterally. PT-OP-K Range of Motion Start: 07/27/18 11:43 Freq: Status: Active Protocol: Document 07/25/18 14:30 RCC (Rec: 07/27/18 15:47 RCC [email or web address]) Knee Goniometric Range of Motion Knee Measured in Degrees Right Knee ROM WFL Yes Patient Position Supine Flexion Active (degrees) 125 Extension Active (degrees) 0 Left Knee ROM WFL Yes Patient Position Supine Flexion Active (degrees) 100 Extension Active (degrees) 9 PT-OP-L Special Tests Start: 07/27/18 11:43 Freq: Status: Active Protocol: Document 07/25/18 14:30 RCC (Rec: 07/27/18 15:47 RCC [email or web address]) Special Tests Lumbar Spine Special Tests Straight Leg Raise Test Results positive on the L @ 45 deg PT-OP-M Strength Start: 07/27/18 11:43 Freq: Status: Active Protocol: Document 07/25/18 14:30 RCC (Rec: 07/27/18 15:47 RCC [email or web address]) Hip Strength Hip Manual Muscle Testing Left Flexion (L2) 3+ Fair+ Right Flexion (L2) 4 Good Knee Strength Knee Manual Muscle Testing Right Flexion (S2) 4+ Good+ Extension (L3) 4+ Good+ Left Flexion (S2) 4 Good Extension (L3) 3+ Fair+ Ankle/Foot Strength Ankle and Foot Manual Muscle Testing Right Dorsiflexion (L4) 5 Normal Left Dorsiflexion (L4) 4 Good PT-OP-Q Treatments Start: 07/27/18 11:43 Freq: Status: Active Protocol: Document 08/29/18 14:30 RCC (Rec: 08/29/18 15:22 RCC [email or web address]) Gym Equipment Shuttle Recovery Unilateral Heel Raises Resistance 25 lbs Shuttle Recovery Platform Stable Reps/Time 10 Bilateral Heel Raises Resistance 50 lbs Shuttle Recovery Platform Stable Reps/Time 20 Unilateral Squats Resistance 50 lbs Shuttle Recovery Platform Stable Reps/Time 12 Bilateral Squats Resistance 62 lbs Shuttle Recovery Platform Stable Reps/Time 15 Therapeutic Exercises Supine Exercises DKC Supine Exercise Name knee flex/ext on 55 cm ball Side bilateral QS Supine Exercise Name quad set Side left Standing Exercises sit<->stand squats Standing Exercise Name STS with TrAb activation Side bilateral Manual Therapy Treatment Soft Tissue Mobilization L quadriceps Body Location L quadriceps Mobilization Type Rolling Intensity/Depth Moderate Body Position Hooklying scar tissue Body Location lateral L thigh Mobilization Type Other Intensity/Depth Moderate Body Position Hooklying Joint Mobilizations PF Joint patellofemoral Direction medial, inf, superior Grade III Body Position Supine PT-OP-R Modalities Start: 07/27/18 11:43 Freq: Status: Active Protocol: Document 08/29/18 14:30 RCC (Rec: 08/29/18 15:22 RCC [email or web address]) Hot Pack/Cold Pack Treatment Cold Pack Location L knee Patient Position Hooklying Treatment Duration (minutes) 10 Patient Tolerance Good Comments bolster PT-OP-T Assessment and Plan Start: 07/27/18 11:43 Freq: Status: Active Protocol: Document 08/29/18 14:30 RCC (Rec: 08/29/18 15:22 RCC [email or web address]) Physical Therapy Assessment Assessment Summary Assessment Pt with less discomfort in transitional movements while activating her transverse abdominals. L knee less painful in WB after manual therapy, and improved push off on the LLE after training heel raise on Shuttle Recovery . Physical Therapy Plan Frequency and Duration Frequency of Treatment 2x/Week Duration of Treatment 12 weeks Plan of Care Start Date 07/25/18 Plan of Care End Date 10/17/18 Next Visit Focus/Plan Next Note Type Treatment Note Next Visit Plan cont. gait and LE stabilization, balance with core activation.
--- NOTE | 2018-08-31 14:30 | PT.OTN ---
Current Diagnoses Multiple sclerosis (08/31/18) Unspecified osteoarthritis, unspecified site (08/31/18) Physical Therapy Treatment Note PT-OP-A Visit Information Start: 07/27/18 11:43 Freq: Status: Active Protocol: Document 08/31/18 14:30 RCC (Rec: 08/31/18 16:35 RCC [email or web address]) Out-Patient Physical Therapy Visit Information Visit Information Visit Type Treatment Note Visit Start Time 13:45 Visit Stop Time 14:40 Total Visit Minutes 55 Visit Number 7 Number of OVEN HEATER Visits 0 Evaluation Information Evaluation Date 07/25/18 PT-OP-B Current Condition Start: 07/27/18 11:43 Freq: Status: Active Protocol: Document 07/25/18 14:30 RCC (Rec: 07/27/18 11:58 RCC [email or web address]) Current Condition History of Current Condition Onset Date 2016 Current Complaints L knee pain/stiffness, low back pain, impaired mobility History of Current Condition Pt is a 83 y/o female presenting to physical therapy c/o L knee pain and stiffness , low back pain, andimpaired mobility. Pt has a h/o L distal femur fracture with ORIF 2016. 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 Pt has not fallen in the past 3+ months. Radiograph of lumbar spine showed compression fx's at T10, T12, L3 and L4, as well as grade 1 spondylolisthesis @ L4-5. Prior Treatments and Tests PT in past which she was d/c for multiple falls, unsafe to attend outpatient facility. Radiograph for spine showed compression fx @ T10, T12, L3 and L4. Treatment Goals Patient/Caregiver Goals improve mobility, decrease pain, improve function Prior Functional Status Baseline Function- ADL's Modified Independent Baseline Function- Mobility Modified Independent Baseline Function- Gait short distance outdoors indep. Baseline Function- Other pt was doing her own shopping prior to L distal femur fx and ORIF 07/2017 Current Functional Impairments (Reported) Functional Limitations- ADL's some assistance with cleaning Functional Limitations- Mobility/Gait modified indep. short outdoor gait on level surfaces only Personal Factors Other Personal Factors That May Effect Multiple Sclerosis, L distal Therapy/Recovery femur fx s/p ORIF 07/2017, h/o multiple falls, multiple compression fx's PT-OP-C Subjective Start: 07/27/18 11:43 Freq: Status: Active Protocol: Document 08/31/18 14:30 RCC (Rec: 08/31/18 16:35 RCC [email or web address]) OP-PT Subjective Patient Comments Patient Comments Pt no longer with lateral thigh/knee pain but does have some pain in medial L knee. She feels more stiff today. PT-OP-D Balance Start: 07/27/18 11:43 Freq: Status: Active Protocol: Document 07/25/18 14:30 RCC (Rec: 07/27/18 12:01 RCC [email or web address]) Balance Tests Single Limb Standing Single Limb- Right unable Single Limb- Left unable PT-OP-E Functional Tests Start: 07/27/18 11:43 Freq: Status: Active Protocol: Document 07/25/18 14:30 RCC (Rec: 07/27/18 12:02 RCC [email or web address]) Functional Tests Timed Up and Go (TUG) Score 32.18 Comments 4WW TUG Impairment Rating 100% Impaired (Score 20) PT-OP-F Manual Assessment Start: 07/27/18 11:43 Freq: Status: Active Protocol: Document 08/16/18 15:15 RCC (Rec: 08/17/18 14:27 RCC [email or web address]) Manual Assessments Joint Mobility Assessment Joint Mobility Assessment hypomobility L patellofemoral joint medial, inferior and superior glide PT-OP-G Mobility & Gait Start: 07/27/18 11:43 Freq: Status: Active Protocol: Document 08/24/18 14:30 RCC (Rec: 08/26/18 13:21 RCC [email or web address]) OP Gait Assessment Comments Gait Comments decreased step length on the R , occasional decreased foot clearance bilaterally. PT-OP-K Range of Motion Start: 07/27/18 11:43 Freq: Status: Active Protocol: Document 08/31/18 14:30 RCC (Rec: 08/31/18 16:35 RCC [email or web address]) Knee Goniometric Range of Motion Knee Measured in Degrees Left Knee ROM WFL No Patient Position Supine Flexion Active (degrees) 105 Extension Active (degrees) 8 PT-OP-L Special Tests Start: 07/27/18 11:43 Freq: Status: Active Protocol: Document 07/25/18 14:30 RCC (Rec: 07/27/18 15:47 RCC [email or web address]) Special Tests Lumbar Spine Special Tests Straight Leg Raise Test Results positive on the L @ 45 deg PT-OP-M Strength Start: 07/27/18 11:43 Freq: Status: Active Protocol: Document 07/25/18 14:30 RCC (Rec: 07/27/18 15:47 RCC [email or web address]) Hip Strength Hip Manual Muscle Testing Left Flexion (L2) 3+ Fair+ Right Flexion (L2) 4 Good Knee Strength Knee Manual Muscle Testing Right Flexion (S2) 4+ Good+ Extension (L3) 4+ Good+ Left Flexion (S2) 4 Good Extension (L3) 3+ Fair+ Ankle/Foot Strength Ankle and Foot Manual Muscle Testing Right Dorsiflexion (L4) 5 Normal Left Dorsiflexion (L4) 4 Good PT-OP-Q Treatments Start: 07/27/18 11:43 Freq: Status: Active Protocol: Document 08/31/18 14:30 RCC (Rec: 08/31/18 16:35 RCC [email or web address]) Cardio Equipment Recumbent Elliptical (Biodex) Duration (Minutes) 8 Resistance 1 Seat Position 7 Gym Equipment Shuttle Recovery Unilateral Squats Resistance 50 lbs Shuttle Recovery Platform Stable Reps/Time 10 Bilateral Squats Resistance 62 lbs Shuttle Recovery Platform Stable Reps/Time 10 Therapeutic Exercises Standing Exercises lateral walk Standing Exercise Name lateral walks Side bilateral Resistance yellow Reps/Minutes 3 laps @ standing bar Gait Training Gait Activity 1 Description gait in // bars, no 4WW Device Used // bars Level of Assistance SBA, verbal cuing Surface level Treatment Focus step length, foot clearance, L knee flexion and push off Manual Therapy Treatment Soft Tissue Mobilization L quadriceps Body Location L quadriceps Mobilization Type Rolling Intensity/Depth Moderate Body Position Hooklying scar tissue Body Location lateral L thigh Mobilization Type Other Intensity/Depth Moderate Body Position Hooklying Taping 1 Body Location medial L knee Type of Tape Kinesio Tape Skin Inspection good Comments I strip for medial L knee PT-OP-R Modalities Start: 07/27/18 11:43 Freq: Status: Active Protocol: Document 08/31/18 14:30 RCC (Rec: 08/31/18 16:35 RCC [email or web address]) Hot Pack/Cold Pack Treatment Cold Pack Location L knee Patient Position Hooklying Treatment Duration (minutes) 10 Patient Tolerance Good Comments [email or web address] PT-OP-T Assessment and Plan Start: 07/27/18 11:43 Freq: Status: Active Protocol: Document 08/31/18 14:30 RCC (Rec: 08/31/18 16:35 RCC [email or web address]) Physical Therapy Assessment Assessment Summary Assessment Pt notes increased knee stiffness on the L, but does have greater ROM since initial evaluation. L patella is less laterally tilted, but still moderate in severity and difficulty with gait. Physical Therapy Plan Frequency and Duration Frequency of Treatment 2x/Week Duration of Treatment 12 weeks Plan of Care Start Date 07/25/18 Plan of Care End Date 10/17/18 Next Visit Focus/Plan Next Note Type Treatment Note Next Visit Plan prog. L knee ROM, hip and knee strength, gait.
--- NOTE | 2018-09-07 14:30 | PT.OTN ---
Current Diagnoses Multiple sclerosis (09/07/18) Unspecified osteoarthritis, unspecified site (09/07/18) Physical Therapy Treatment Note PT-OP-A Visit Information Start: 07/27/18 11:43 Freq: Status: Active Protocol: Document 09/07/18 14:30 RCC (Rec: 09/08/18 13:11 [email or web address]) Out-Patient Physical Therapy Visit Information Visit Information Visit Type Treatment Note Visit Start Time 13:48 Visit Stop Time 14:30 Total Visit Minutes 42 Visit Number 8 Number of HAIRSPRING II INSPECTOR Visits 0 Evaluation Information Evaluation Date 07/25/18 PT-OP-B Current Condition Start: 07/27/18 11:43 Freq: Status: Active Protocol: Document 07/25/18 14:30 RCC (Rec: 07/27/18 11:58 RCC [email or web address]) Current Condition History of Current Condition Onset Date 2016 Current Complaints L knee pain/stiffness, low back pain, impaired mobility History of Current Condition Pt is a 83 y/o female presenting to physical therapy c/o L knee pain and stiffness , low back pain, andimpaired mobility. Pt has a h/o L distal femur fracture with ORIF 2016. 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 Pt has not fallen in the past 3+ months. Radiograph of lumbar spine showed compression fx's at T10, T12, L3 and L4, as well as grade 1 spondylolisthesis @ L4-5. Prior Treatments and Tests PT in past which she was d/c for multiple falls, unsafe to attend outpatient facility. Radiograph for spine showed compression fx @ T10, T12, L3 and L4. Treatment Goals Patient/Caregiver Goals improve mobility, decrease pain, improve function Prior Functional Status Baseline Function- ADL's Modified Independent Baseline Function- Mobility Modified Independent Baseline Function- Gait short distance outdoors indep. Baseline Function- Other pt was doing her own shopping prior to L distal femur fx and ORIF 07/2017 Current Functional Impairments (Reported) Functional Limitations- ADL's some assistance with cleaning Functional Limitations- Mobility/Gait modified indep. short outdoor gait on level surfaces only Personal Factors Other Personal Factors That May Effect Multiple Sclerosis, L distal Therapy/Recovery femur fx s/p ORIF 07/2017, h/o multiple falls, multiple compression fx's PT-OP-C Subjective Start: 07/27/18 11:43 Freq: Status: Active Protocol: Document 09/07/18 14:30 RCC (Rec: 09/08/18 13:11 RCC [email or web address]) OP-PT Subjective Patient Comments Patient Comments Pt states that she is doing overall a little better today. PT-OP-D Balance Start: 07/27/18 11:43 Freq: Status: Active Protocol: Document 07/25/18 14:30 RCC (Rec: 07/27/18 12:01 RCC [email or web address]) Balance Tests Single Limb Standing Single Limb- Right unable Single Limb- Left unable PT-OP-E Functional Tests Start: 07/27/18 11:43 Freq: Status: Active Protocol: Document 07/25/18 14:30 RCC (Rec: 07/27/18 12:02 RCC [email or web address]) Functional Tests Timed Up and Go (TUG) Score 32.18 Comments 4WW TUG Impairment Rating 100% Impaired (Score 20) PT-OP-F Manual Assessment Start: 07/27/18 11:43 Freq: Status: Active Protocol: Document 08/16/18 15:15 RCC (Rec: 08/17/18 14:27 RCC [email or web address]) Manual Assessments Joint Mobility Assessment Joint Mobility Assessment hypomobility L patellofemoral joint medial, inferior and superior glide PT-OP-G Mobility & Gait Start: 07/27/18 11:43 Freq: Status: Active Protocol: Document 08/24/18 14:30 RCC (Rec: 08/26/18 13:21 RCC [email or web address]) OP Gait Assessment Comments Gait Comments decreased step length on the R , occasional decreased foot clearance bilaterally. PT-OP-K Range of Motion Start: 07/27/18 11:43 Freq: Status: Active Protocol: Document 09/07/18 14:30 RCC (Rec: 09/08/18 13:11 RCC [email or web address]) Knee Goniometric Range of Motion Knee Measured in Degrees Left Knee ROM WFL No Patient Position Supine Flexion Active (degrees) 106 Extension Active (degrees) 6 PT-OP-L Special Tests Start: 07/27/18 11:43 Freq: Status: Active Protocol: Document 07/25/18 14:30 RCC (Rec: 07/27/18 15:47 RCC [email or web address]) Special Tests Lumbar Spine Special Tests Straight Leg Raise Test Results positive on the L @ 45 deg PT-OP-M Strength Start: 07/27/18 11:43 Freq: Status: Active Protocol: Document 07/25/18 14:30 RCC (Rec: 07/27/18 15:47 RCC [email or web address]) Hip Strength Hip Manual Muscle Testing Left Flexion (L2) 3+ Fair+ Right Flexion (L2) 4 Good Knee Strength Knee Manual Muscle Testing Right Flexion (S2) 4+ Good+ Extension (L3) 4+ Good+ Left Flexion (S2) 4 Good Extension (L3) 3+ Fair+ Ankle/Foot Strength Ankle and Foot Manual Muscle Testing Right Dorsiflexion (L4) 5 Normal Left Dorsiflexion (L4) 4 Good PT-OP-Q Treatments Start: 07/27/18 11:43 Freq: Status: Active Protocol: Document 09/07/18 14:30 RCC (Rec: 09/08/18 13:11 RCC [email or web address]) Cardio Equipment Recumbent Elliptical (Biodex) Duration (Minutes) 10 Resistance 1 Seat Position 7-6 Gym Equipment Shuttle Recovery Unilateral Squats Resistance 50 lbs Shuttle Recovery Platform Stable Reps/Time 10 Bilateral Squats Resistance 62 lbs Shuttle Recovery Platform Stable Reps/Time 10 Therapeutic Exercises Standing Exercises heel raises Side bilateral Reps/Minutes 15 Comments UE support on 4WW HC stretch Standing Exercise Name heel cord stretch Side bilateral Equipment Used DAGO HS stretch Standing Exercise Name hamstring stretch @ stairs Side left Comments neutral back VC Manual Therapy Treatment Soft Tissue Mobilization L quadriceps Body Location L quadriceps Mobilization Type Rolling Intensity/Depth Moderate Body Position Hooklying scar tissue Body Location lateral L thigh Mobilization Type Other Intensity/Depth Moderate Body Position Hooklying PT-OP-R Modalities Start: 07/27/18 11:43 Freq: Status: Active Protocol: Document 08/31/18 14:30 RCC (Rec: 08/31/18 16:35 RCC [email or web address]) Hot Pack/Cold Pack Treatment Cold Pack Location L knee Patient Position Hooklying Treatment Duration (minutes) 10 Patient Tolerance Good Comments abram PT-OP-T Assessment and Plan Start: 07/27/18 11:43 Freq: Status: Active Protocol: Document 09/07/18 14:30 RCC (Rec: 09/08/18 13:11 RCC [email or web address]) Physical Therapy Assessment Assessment Summary Assessment Pt's L patella able to cross- over to medial side today for first time since initiating physical therapy (has been in severe lateral position), and slight improvements with ROM. Pt still demonstrates impaired ROM of the L knee, LE weakness, and impaired gait and would benefit from continuing skilled physical therapy. Physical Therapy Plan Frequency and Duration Frequency of Treatment 2x/Week Duration of Treatment 12 weeks Plan of Care Start Date 07/25/18 Plan of Care End Date 10/17/18 Next Visit Focus/Plan Next Note Type Treatment Note Next Visit Plan continue gait training, LE stability, balance to decrease fall risk.
--- NOTE | 2018-09-12 14:30 | PT.OTN ---
Current Diagnoses Multiple sclerosis (09/12/18) Unspecified osteoarthritis, unspecified site (09/12/18) Physical Therapy Treatment Note PT-OP-A Visit Information Start: 07/27/18 11:43 Freq: Status: Active Protocol: Document 09/12/18 14:30 RCC (Rec: 09/13/18 13:36 RCC [email or web address]) Out-Patient Physical Therapy Visit Information Visit Information Visit Type Treatment Note Visit Start Time 13:45 Visit Stop Time 14:35 Total Visit Minutes 50 Visit Number 9 Number of PRODUCT MANUFACTURING PROFESSIONAL Visits 0 Evaluation Information Evaluation Date 07/25/18 PT-OP-B Current Condition Start: 07/27/18 11:43 Freq: Status: Active Protocol: Document 07/25/18 14:30 RCC (Rec: 07/27/18 11:58 RCC [email or web address]) Current Condition History of Current Condition Onset Date 2016 Current Complaints L knee pain/stiffness, low back pain, impaired mobility History of Current Condition Pt is a 83 y/o female presenting to physical therapy c/o L knee pain and stiffness , low back pain, andimpaired mobility. Pt has a h/o L distal femur fracture with ORIF 2016. 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 Pt has not fallen in the past 3+ months. Radiograph of lumbar spine showed compression fx's at T10, T12, L3 and L4, as well as grade 1 spondylolisthesis @ L4-5. Prior Treatments and Tests PT in past which she was d/c for multiple falls, unsafe to attend outpatient facility. Radiograph for spine showed compression fx @ T10, T12, L3 and L4. Treatment Goals Patient/Caregiver Goals improve mobility, decrease pain, improve function Prior Functional Status Baseline Function- ADL's Modified Independent Baseline Function- Mobility Modified Independent Baseline Function- Gait short distance outdoors indep. Baseline Function- Other pt was doing her own shopping prior to L distal femur fx and ORIF 07/2017 Current Functional Impairments (Reported) Functional Limitations- ADL's some assistance with cleaning Functional Limitations- Mobility/Gait modified indep. short outdoor gait on level surfaces only Personal Factors Other Personal Factors That May Effect Multiple Sclerosis, L distal Therapy/Recovery femur fx s/p ORIF 07/2017, h/o multiple falls, multiple compression fx's PT-OP-C Subjective Start: 07/27/18 11:43 Freq: Status: Active Protocol: Document 09/12/18 14:30 RCC (Rec: 09/13/18 13:36 RCC [email or web address]) OP-PT Subjective Patient Comments Patient Comments pt sore after last session but overall is doing well today. PT-OP-D Balance Start: 07/27/18 11:43 Freq: Status: Active Protocol: Document 07/25/18 14:30 RCC (Rec: 07/27/18 12:01 RCC [email or web address]) Balance Tests Single Limb Standing Single Limb- Right unable Single Limb- Left unable PT-OP-E Functional Tests Start: 07/27/18 11:43 Freq: Status: Active Protocol: Document 07/25/18 14:30 RCC (Rec: 07/27/18 12:02 RCC [email or web address]) Functional Tests Timed Up and Go (TUG) Score 32.18 Comments 4WW TUG Impairment Rating 100% Impaired (Score 20) PT-OP-F Manual Assessment Start: 07/27/18 11:43 Freq: Status: Active Protocol: Document 08/16/18 15:15 RCC (Rec: 08/17/18 14:27 RCC [email or web address]) Manual Assessments Joint Mobility Assessment Joint Mobility Assessment hypomobility L patellofemoral joint medial, inferior and superior glide PT-OP-G Mobility & Gait Start: 07/27/18 11:43 Freq: Status: Active Protocol: Document 08/24/18 14:30 RCC (Rec: 08/26/18 13:21 RCC [email or web address]) OP Gait Assessment Comments Gait Comments decreased step length on the R , occasional decreased foot clearance bilaterally. PT-OP-K Range of Motion Start: 07/27/18 11:43 Freq: Status: Active Protocol: Document 09/12/18 14:30 RCC (Rec: 09/13/18 13:36 RCC [email or web address]) Knee Goniometric Range of Motion Knee Measured in Degrees Left Knee ROM WFL No Patient Position Supine Flexion Active (degrees) 106 Flexion Passive (degrees) 114 Extension Active (degrees) 6 PT-OP-L Special Tests Start: 07/27/18 11:43 Freq: Status: Active Protocol: Document 07/25/18 14:30 RCC (Rec: 07/27/18 15:47 RCC [email or web address]) Special Tests Lumbar Spine Special Tests Straight Leg Raise Test Results positive on the L @ 45 deg PT-OP-M Strength Start: 07/27/18 11:43 Freq: Status: Active Protocol: Document 07/25/18 14:30 RCC (Rec: 07/27/18 15:47 RCC [email or web address]) Hip Strength Hip Manual Muscle Testing Left Flexion (L2) 3+ Fair+ Right Flexion (L2) 4 Good Knee Strength Knee Manual Muscle Testing Right Flexion (S2) 4+ Good+ Extension (L3) 4+ Good+ Left Flexion (S2) 4 Good Extension (L3) 3+ Fair+ Ankle/Foot Strength Ankle and Foot Manual Muscle Testing Right Dorsiflexion (L4) 5 Normal Left Dorsiflexion (L4) 4 Good PT-OP-Q Treatments Start: 07/27/18 11:43 Freq: Status: Active Protocol: Document 09/12/18 14:30 RCC (Rec: 09/13/18 13:36 [facility] [email or web address]) Cardio Equipment Recumbent Elliptical ([employer]) Duration (Minutes) 8 Resistance 1 Seat Position 7-6 Therapeutic Exercises Supine Exercises heel slide Side left Reps/Minutes 10 heel digs Supine Exercise Name HS set/heel digs Side bilateral Reps/Minutes 10 Comments 5 sec hold Bridging Supine Exercise Name bridging Side bilateral Reps/Minutes 10 Manual Therapy Treatment Soft Tissue Mobilization L quadriceps Body Location L quadriceps Mobilization Type Rolling Intensity/Depth Moderate Body Position Hooklying scar tissue Body Location lateral L thigh Mobilization Type Other Intensity/Depth Moderate Body Position Hooklying Joint Mobilizations PF Joint patellofemoral Direction medial, inf, superior Grade III Body Position Supine PT-OP-R Modalities Start: 07/27/18 11:43 Freq: Status: Active Protocol: Document 09/12/18 14:30 RCC (Rec: 09/13/18 13:36 [facility] [address] [email or web address]) Hot Pack/Cold Pack Treatment Cold Pack Location L knee Patient Position Hooklying Treatment Duration (minutes) 10 Patient Tolerance Good Otilia valverde PT-OP-T Assessment and Plan Start: 07/27/18 11:43 Freq: Status: Active Protocol: Document 09/12/18 14:30 RCC (Rec: 09/13/18 13:36 [facility] [email or web address]) Physical Therapy Assessment Assessment Summary Assessment Pt continues to have impaired L knee ROM, but is improving with her transitional movement tolerance and now able to perform log roll without c/o back pain. Physical Therapy Plan Frequency and Duration Frequency of Treatment 2x/Week Duration of Treatment 12 weeks Plan of Care Start Date 07/25/18 Plan of Care End Date 10/17/18 Next Visit Focus/Plan Next Note Type Progress Note Next Visit Plan re-assess obj measures.
--- NOTE | 2018-09-14 15:15 | PT.OTN ---
Current Diagnoses Multiple sclerosis (09/14/18) Unspecified osteoarthritis, unspecified site (09/14/18) Physical Therapy Treatment Note PT-OP-A Visit Information Start: 07/27/18 11:43 Freq: Status: Active Protocol: Document 09/14/18 15:15 RCC (Rec: 09/15/18 14:06 RCC [email or web address]) Out-Patient Physical Therapy Visit Information Visit Information Visit Type Treatment Note Visit Start Time 14:30 Visit Stop Time 15:25 Total Visit Minutes 55 Visit Number 10 Number of GEAR CUTTING MACHINE SET UP OPERATOR Visits 0 Evaluation Information Evaluation Date 07/25/18 PT-OP-B Current Condition Start: 07/27/18 11:43 Freq: Status: Active Protocol: Document 07/25/18 14:30 RCC (Rec: 07/27/18 11:58 RCC [email or web address]) Current Condition History of Current Condition Onset Date 2016 Current Complaints L knee pain/stiffness, low back pain, impaired mobility History of Current Condition Pt is a 83 y/o female presenting to physical therapy c/o L knee pain and stiffness , low back pain, andimpaired mobility. Pt has a h/o L distal femur fracture with ORIF 2016. 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 Pt has not fallen in the past 3+ months. Radiograph of lumbar spine showed compression fx's at T10, T12, L3 and L4, as well as grade 1 spondylolisthesis @ L4-5. Prior Treatments and Tests PT in past which she was d/c for multiple falls, unsafe to attend outpatient facility. Radiograph for spine showed compression fx @ T10, T12, L3 and L4. Treatment Goals Patient/Caregiver Goals improve mobility, decrease pain, improve function Prior Functional Status Baseline Function- ADL's Modified Independent Baseline Function- Mobility Modified Independent Baseline Function- Gait short distance outdoors indep. Baseline Function- Other pt was doing her own shopping prior to L distal femur fx and ORIF 07/2017 Current Functional Impairments (Reported) Functional Limitations- ADL's some assistance with cleaning Functional Limitations- Mobility/Gait modified indep. short outdoor gait on level surfaces only Personal Factors Other Personal Factors That May Effect Multiple Sclerosis, L distal Therapy/Recovery femur fx s/p ORIF 07/2017, h/o multiple falls, multiple compression fx's PT-OP-C Subjective Start: 07/27/18 11:43 Freq: Status: Active Protocol: Document 09/14/18 15:15 RCC (Rec: 09/15/18 14:06 RCC [email or web address]) OP-PT Subjective Patient Comments Patient Comments pt states she feels improved with her gait today, still stiff however. Her back is becoming less aggravating, less frequent (7/10 at worst but times of 2/10 pain). OP-PT Pain Assessment Location Bilateral Lower Back Intensity 7 Scale Used Numeric (1 - 10) PT-OP-D Balance Start: 07/27/18 11:43 Freq: Status: Active Protocol: Document 07/25/18 14:30 RCC (Rec: 07/27/18 12:01 RCC [email or web address]) Balance Tests Single Limb Standing Single Limb- Right unable Single Limb- Left unable PT-OP-E Functional Tests Start: 07/27/18 11:43 Freq: Status: Active Protocol: Document 09/14/18 15:15 RCC (Rec: 09/15/18 14:06 RCC [email or web address]) Functional Tests Timed Up and Go (TUG) Score 18.28 TUG Impairment Rating 80 to <100% Impaired (Score 18 -19) PT-OP-F Manual Assessment Start: 07/27/18 11:43 Freq: Status: Active Protocol: Document 08/16/18 15:15 RCC (Rec: 08/17/18 14:27 RCC [email or web address]) Manual Assessments Joint Mobility Assessment Joint Mobility Assessment hypomobility L patellofemoral joint medial, inferior and superior glide PT-OP-G Mobility & Gait Start: 07/27/18 11:43 Freq: Status: Active Protocol: Document 08/24/18 14:30 RCC (Rec: 08/26/18 13:21 RCC [email or web address]) OP Gait Assessment Comments Gait Comments decreased step length on the R , occasional decreased foot clearance bilaterally. PT-OP-K Range of Motion Start: 07/27/18 11:43 Freq: Status: Active Protocol: Document 09/14/18 15:15 RCC (Rec: 09/15/18 14:06 RCC [email or web address]) Knee Goniometric Range of Motion Knee Measured in Degrees Left Knee ROM WFL No Patient Position Supine Flexion Active (degrees) 110 Flexion Passive (degrees) 115 Extension Active (degrees) 3 PT-OP-L Special Tests Start: 07/27/18 11:43 Freq: Status: Active Protocol: Document 07/25/18 14:30 RCC (Rec: 07/27/18 15:47 RCC [email or web address]) Special Tests Lumbar Spine Special Tests Straight Leg Raise Test Results positive on the L @ 45 deg PT-OP-M Strength Start: 07/27/18 11:43 Freq: Status: Active Protocol: Document 09/14/18 15:15 RCC (Rec: 09/15/18 14:06 RCC [email or web address]) Hip Strength Hip Manual Muscle Testing Left Flexion (L2) 4 Good Knee Strength Knee Manual Muscle Testing Left Flexion (S2) 4 Good Extension (L3) 3+ Fair+ PT-OP-Q Treatments Start: 07/27/18 11:43 Freq: Status: Active Protocol: Document 09/14/18 15:15 RCC (Rec: 09/15/18 14:06 [facility] [email or web address]) Cardio Equipment Recumbent Elliptical ([employer]) Duration (Minutes) 8 Resistance 1 Seat Position 7-6 Therapeutic Exercises Supine Exercises SLR Supine Exercise Name straight leg raise (flexion)- neutral and ER of LLE Side left Reps/Minutes 10 each [facility] Supine Exercise Name knee flex/ext on 65 cm ball Side bilateral Manual Therapy Treatment Soft Tissue Mobilization L quadriceps Body Location L quadriceps Mobilization Type Rolling Intensity/Depth Moderate Body Position Hooklying scar tissue Body Location lateral L thigh Mobilization Type Other Intensity/Depth Moderate Body Position Hooklying Joint Mobilizations tibiofemoral Joint tibiofemoral Direction A/P and PA tibia on femur Grade III PF Joint patellofemoral Direction medial, inf, superior Grade III Body Position Supine PT-OP-R Modalities Start: 07/27/18 11:43 Freq: Status: Active Protocol: Document 09/14/18 15:15 RCC (Rec: 09/15/18 14:06 RCC [email or web address]) Hot Pack/Cold Pack Treatment Cold Pack Location L knee Patient Position Hooklying Treatment Duration (minutes) 10 Patient Tolerance Good Comments bolster PT-OP-T Assessment and Plan Start: 07/27/18 11:43 Freq: Status: Active Protocol: Document 09/14/18 15:15 RCC (Rec: 09/15/18 14:06 RCC [email or web address]) Physical Therapy Assessment Goals Four Impairment Gait/Timed Up and Go Short Term Goal (STG) Timed Up and Go to <30 seconds . 09/14/18: achieved STG Duration 6 weeks Usp Goal (LTG) Timed Up and Go to <20 seconds to demonstrate improved gait speed, and decreasing fall risk. 09/14/18: achieved LTG Duration 12 weeks Three Impairment L knee ROM Usp Goal (LTG) 0-120 degrees of the L knee to improve gait and functional motion. 09/14/18: some progress (3-110 ) Two Impairment pain in low back 7/10 Short Term Goal (STG) 5/10 pain reported in low back . 09/14/18: some progress @ times 2/10 but 7/10 at worst STG Duration 6 weeks [employer] Goal (LTG) 3/10 pain reported in low back or less to demonstrate improved thoracolumbar stability. LTG Duration 12 weeks One Impairment Lower Extremity Functional Scale (14/80) Short Term Goal (STG) Score: 20/80 STG Duration 6 weeks Usp Goal (LTG) Score: 25/80 or greater to demonstrate improvements with functional mobility. LTG Duration 12 weeks Progress Towards Goals Progress Towards Goals Slow Progress due to Activity Tolerance Slow Progress due to Medical Issues Slow Progress - Other Assessment Summary Assessment Pt with significant improvements in her Timed Up and Go testing to <20 seconds (>30 seconds on initial evaluation). She is still at risk for falls, however. Pt's ROM is slowly improving in the L knee. Her low back pain is rated 7/10 at worst, but becoming less frequent and does have times with pain down to 2/10. Pt is benefitting from skilled physical therapy, and will continue to benefit from manual therapy, progression of ROM, strength, balance, and gait to improve her overall function, safety, and independence. Physical Therapy Plan Frequency and Duration Frequency of Treatment 2x/Week Duration of Treatment 12 weeks Plan of Care Start Date 07/25/18 Plan of Care End Date 10/17/18 Next Visit Focus/Plan Next Note Type Treatment Note Next Visit Plan prog. gait, L knee ROM and strength as tolerated.
--- NOTE | 2018-09-19 14:30 | PT.OTN ---
Current Diagnoses Multiple sclerosis (09/19/18) Unspecified osteoarthritis, unspecified site (09/19/18) Physical Therapy Treatment Note PT-OP-A Visit Information Start: 07/27/18 11:43 Freq: Status: Active Protocol: Document 09/19/18 14:30 RCC (Rec: 09/19/18 15:54 RCC [email or web address]) Out-Patient Physical Therapy Visit Information Visit Information Visit Type Treatment Note Visit Start Time 13:45 Visit Stop Time 14:37 Total Visit Minutes 52 Visit Number 10 Number of SCHOOL COMMISSIONER Visits 0 PT-OP-B Current Condition Start: 07/27/18 11:43 Freq: Status: Active Protocol: Document 07/25/18 14:30 RCC (Rec: 07/27/18 11:58 RCC [email or web address]) Current Condition History of Current Condition Onset Date 2016 Current Complaints L knee pain/stiffness, low back pain, impaired mobility History of Current Condition Pt is a 83 y/o female presenting to physical therapy c/o L knee pain and stiffness , low back pain, andimpaired mobility. Pt has a h/o L distal femur fracture with ORIF 2016. 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 Pt has not fallen in the past 3+ months. Radiograph of lumbar spine showed compression fx's at T10, T12, L3 and L4, as well as grade 1 spondylolisthesis @ L4-5. Prior Treatments and Tests PT in past which she was d/c for multiple falls, unsafe to attend outpatient facility. Radiograph for spine showed compression fx @ T10, T12, L3 and L4. Treatment Goals Patient/Caregiver Goals improve mobility, decrease pain, improve function Prior Functional Status Baseline Function- ADL's Modified Independent Baseline Function- Mobility Modified Independent Baseline Function- Gait short distance outdoors indep. Baseline Function- Other pt was doing her own shopping prior to L distal femur fx and ORIF 07/2017 Current Functional Impairments (Reported) Functional Limitations- ADL's some assistance with cleaning Functional Limitations- Mobility/Gait modified indep. short outdoor gait on level surfaces only Personal Factors Other Personal Factors That May Effect Multiple Sclerosis, L distal Therapy/Recovery femur fx s/p ORIF 07/2017, h/o multiple falls, multiple compression fx's PT-OP-C Subjective Start: 07/27/18 11:43 Freq: Status: Active Protocol: Document 09/19/18 14:30 RCC (Rec: 09/19/18 15:54 RCC [email or web address]) OP-PT Subjective Patient Comments Patient Comments pt overall is stiff today including over on the R knee as well. She notes she is she having an off day. Patient Reported Progress Worse PT-OP-D Balance Start: 07/27/18 11:43 Freq: Status: Active Protocol: Document 07/25/18 14:30 RCC (Rec: 07/27/18 12:01 RCC [email or web address]) Balance Tests Single Limb Standing Single Limb- Right unable Single Limb- Left unable PT-OP-E Functional Tests Start: 07/27/18 11:43 Freq: Status: Active Protocol: Document 09/14/18 15:15 RCC (Rec: 09/15/18 14:06 RCC [email or web address]) Functional Tests Timed Up and Go (TUG) Score 18.28 TUG Impairment Rating 80 to <100% Impaired (Score 18 -19) PT-OP-F Manual Assessment Start: 07/27/18 11:43 Freq: Status: Active Protocol: Document 09/19/18 14:30 RCC (Rec: 09/19/18 15:54 RCC [email or web address]) Manual Assessments Other Manual Assessments Other Manual Assessments mild lateral tilt of L patella PT-OP-G Mobility & Gait Start: 07/27/18 11:43 Freq: Status: Active Protocol: Document 08/24/18 14:30 RCC (Rec: 08/26/18 13:21 RCC [email or web address]) OP Gait Assessment Comments Gait Comments decreased step length on the R , occasional decreased foot clearance bilaterally. PT-OP-K Range of Motion Start: 07/27/18 11:43 Freq: Status: Active Protocol: Document 09/14/18 15:15 RCC (Rec: 09/15/18 14:06 RCC [email or web address]) Knee Goniometric Range of Motion Knee Measured in Degrees Left Knee ROM WFL No Patient Position Supine Flexion Active (degrees) 110 Flexion Passive (degrees) 115 Extension Active (degrees) 3 PT-OP-L Special Tests Start: 07/27/18 11:43 Freq: Status: Active Protocol: Document 07/25/18 14:30 RCC (Rec: 07/27/18 15:47 RCC [email or web address]) Special Tests Lumbar Spine Special Tests Straight Leg Raise Test Results positive on the L @ 45 deg PT-OP-M Strength Start: 07/27/18 11:43 Freq: Status: Active Protocol: Document 09/14/18 15:15 RCC (Rec: 09/15/18 14:06 RCC [email or web address]) Hip Strength Hip Manual Muscle Testing Left Flexion (L2) 4 Good Knee Strength Knee Manual Muscle Testing Left Flexion (S2) 4 Good Extension (L3) 3+ Fair+ PT-OP-Q Treatments Start: 07/27/18 11:43 Freq: Status: Active Protocol: Document 09/19/18 14:30 RCC (Rec: 09/19/18 15:54 RCC [email or web address]) Cardio Equipment Recumbent Elliptical ([employer]) Duration (Minutes) 8 Resistance 2 Seat Position 7 Therapeutic Exercises Supine Exercises heel slide Side left Reps/Minutes 10 Manual Therapy Treatment Soft Tissue Mobilization L quadriceps Body Location L quadriceps Mobilization Type Rolling Intensity/Depth Moderate Body Position Hooklying scar tissue Body Location lateral L thigh Mobilization Type Other Intensity/Depth Moderate Body Position Hooklying Joint Mobilizations PF Joint patellofemoral Direction medial, inf, superior Grade III Body Position Supine PT-OP-R Modalities Start: 07/27/18 11:43 Freq: Status: Active Protocol: Document 09/19/18 14:30 RCC (Rec: 09/19/18 15:54 RCC [email or web address]) Hot Pack/Cold Pack Treatment Cold Pack Location L knee Patient Position Hooklying Treatment Duration (minutes) 10 Patient Tolerance Good Comments bolster PT-OP-T Assessment and Plan Start: 07/27/18 11:43 Freq: Status: Active Protocol: Document 09/19/18 14:30 RCC (Rec: 09/19/18 15:54 [facility] [email or web address]) Physical Therapy Assessment Assessment Summary Assessment Pt with greater lateral tilt this session compared to last week, and increased hypomobility of the patellofemoral joint. Pt's ROM improved after manual therapy. Although she has greater stiffness today, the pt's overall improvements have been significant and she will continue to benefit from skilled OP PT. Physical Therapy Plan Frequency and Duration Frequency of Treatment 2x/Week Duration of Treatment 12 weeks Plan of Care Start Date 07/25/18 Plan of Care End Date 10/17/18 Next Visit Focus/Plan Next Note Type Treatment Note Next Visit Plan cont. knee ROM activities, gait, lower body strengthening .
--- NOTE | 2018-09-26 14:35 | PT.OTN ---
Current Diagnoses Multiple sclerosis (09/26/18) Unspecified osteoarthritis, unspecified site (09/26/18) Physical Therapy Treatment Note PT-OP-A Visit Information Start: 07/27/18 11:43 Freq: Status: Active Protocol: Document 09/26/18 14:35 RCC (Rec: 09/26/18 15:24 [facility] [email or web address]) Out-Patient Physical Therapy Visit Information Visit Information Visit Type Treatment Note Visit Start Time 13:45 Visit Stop Time 14:35 Total Visit Minutes 50 Visit Number 11 Number of SECURITY OFFICER SUPERVISOR Visits 0 Evaluation Information Evaluation Date 07/25/18 PT-OP-B Current Condition Start: 07/27/18 11:43 Freq: Status: Active Protocol: Document 07/25/18 14:30 RCC (Rec: 07/27/18 11:58 [email or web address]) Current Condition History of Current Condition Onset Date 2016 Current Complaints L knee pain/stiffness, low back pain, impaired mobility History of Current Condition Pt is a 83 y/o female presenting to physical therapy c/o L knee pain and stiffness , low back pain, andimpaired mobility. Pt has a h/o L distal femur fracture with ORIF 2016. 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 Pt has not fallen in the past 3+ months. Radiograph of lumbar spine showed compression fx's at T10, T12, L3 and L4, as well as grade 1 spondylolisthesis @ L4-5. Prior Treatments and Tests PT in past which she was d/c for multiple falls, unsafe to attend outpatient facility. Radiograph for spine showed compression fx @ T10, T12, L3 and L4. Treatment Goals Patient/Caregiver Goals improve mobility, decrease pain, improve function Prior Functional Status Baseline Function- ADL's Modified Independent Baseline Function- Mobility Modified Independent Baseline Function- Gait short distance outdoors indep. Baseline Function- Other pt was doing her own shopping prior to L distal femur fx and ORIF 07/2017 Current Functional Impairments (Reported) Functional Limitations- ADL's some assistance with cleaning Functional Limitations- Mobility/Gait modified indep. short outdoor gait on level surfaces only Personal Factors Other Personal Factors That May Effect Multiple Sclerosis, L distal Therapy/Recovery femur fx s/p ORIF 07/2017, h/o multiple falls, multiple compression fx's PT-OP-C Subjective Start: 07/27/18 11:43 Freq: Status: Active Protocol: Document 09/26/18 14:35 RCC (Rec: 09/26/18 15:24 RCC [email or web address]) OP-PT Subjective Patient Comments Patient Comments Pt states that she is doing fair today. She states that her MS has been acting up. PT-OP-D Balance Start: 07/27/18 11:43 Freq: Status: Active Protocol: Document 07/25/18 14:30 RCC (Rec: 07/27/18 12:01 RCC [email or web address]) Balance Tests Single Limb Standing Single Limb- Right unable Single Limb- Left unable PT-OP-E Functional Tests Start: 07/27/18 11:43 Freq: Status: Active Protocol: Document 09/14/18 15:15 RCC (Rec: 09/15/18 14:06 RCC [email or web address]) Functional Tests Timed Up and Go (TUG) Score 18.28 TUG Impairment Rating 80 to <100% Impaired (Score 18 -19) PT-OP-F Manual Assessment Start: 07/27/18 11:43 Freq: Status: Active Protocol: Document 09/19/18 14:30 RCC (Rec: 09/19/18 15:54 RCC [email or web address]) Manual Assessments Other Manual Assessments Other Manual Assessments mild lateral tilt of L patella PT-OP-G Mobility & Gait Start: 07/27/18 11:43 Freq: Status: Active Protocol: Document 08/24/18 14:30 RCC (Rec: 08/26/18 13:21 RCC [email or web address]) OP Gait Assessment Comments Gait Comments decreased step length on the R , occasional decreased foot clearance bilaterally. PT-OP-K Range of Motion Start: 07/27/18 11:43 Freq: Status: Active Protocol: Document 09/14/18 15:15 RCC (Rec: 09/15/18 14:06 RCC [email or web address]) Knee Goniometric Range of Motion Knee Measured in Degrees Left Knee ROM WFL No Patient Position Supine Flexion Active (degrees) 110 Flexion Passive (degrees) 115 Extension Active (degrees) 3 PT-OP-L Special Tests Start: 07/27/18 11:43 Freq: Status: Active Protocol: Document 07/25/18 14:30 RCC (Rec: 07/27/18 15:47 RCC [email or web address]) Special Tests Lumbar Spine Special Tests Straight Leg Raise Test Results positive on the L @ 45 deg PT-OP-M Strength Start: 07/27/18 11:43 Freq: Status: Active Protocol: Document 09/14/18 15:15 RCC (Rec: 09/15/18 14:06 RCC [email or web address]) Hip Strength Hip Manual Muscle Testing Left Flexion (L2) 4 Good Knee Strength Knee Manual Muscle Testing Left Flexion (S2) 4 Good Extension (L3) 3+ Fair+ PT-OP-Q Treatments Start: 07/27/18 11:43 Freq: Status: Active Protocol: Document 09/26/18 14:35 RCC (Rec: 09/26/18 15:24 RCC [email or web address]) Cardio Equipment Recumbent Elliptical ([employer]) Duration (Minutes) 8 Resistance 2 Seat Position 7 Therapeutic Exercises Supine Exercises heel slide Side left Reps/Minutes 10 Gait Training Gait Activity 2 Description gait Device Used 4WW Level of Assistance indep. VC Surface level Distance/Duration 170 ft x2 Treatment Focus gluteal activation, knee ROM, push-off Manual Therapy Treatment Soft Tissue Mobilization L quadriceps Body Location L quadriceps Mobilization Type Rolling Intensity/Depth Moderate Body Position Hooklying scar tissue Body Location lateral L thigh Mobilization Type Other Intensity/Depth Moderate Body Position Hooklying Joint Mobilizations tibiofemoral Joint tibiofemoral Direction A/P tibia on femur Grade IV PF Joint patellofemoral Direction medial, inf, superior Grade III Body Position Supine PT-OP-R Modalities Start: 07/27/18 11:43 Freq: Status: Active Protocol: Document 09/26/18 14:35 RCC (Rec: 09/26/18 15:24 RCC [email or web address]) Hot Pack/Cold Pack Treatment Cold Pack Location L knee Patient Position Hooklying Treatment Duration (minutes) 10 Patient Tolerance Good Comments bolster PT-OP-T Assessment and Plan Start: 07/27/18 11:43 Freq: Status: Active Protocol: Document 09/26/18 14:35 RCC (Rec: 09/26/18 15:24 RCC [email or web address]) Physical Therapy Assessment Assessment Summary Assessment Pt with improved knee ROM during gait with gluteal activation. L knee AROM improved after AP glide of the tibia on femur. She continues to make very slow, but steady progress with ROM and gait. Physical Therapy Plan Frequency and Duration Frequency of Treatment 2x/Week Duration of Treatment 12 weeks Plan of Care Start Date 07/25/18 Plan of Care End Date 10/17/18 Next Visit Focus/Plan Next Note Type Treatment Note Next Visit Plan gluteal strengthening, cont. to advance L knee ROM as tolerated.
--- NOTE | 2018-09-28 14:40 | PT.OTN ---
Current Diagnoses Multiple sclerosis (09/28/18) Unspecified osteoarthritis, unspecified site (09/28/18) Physical Therapy Treatment Note PT-OP-A Visit Information Start: 07/27/18 11:43 Freq: Status: Active Protocol: Document 09/28/18 14:40 RCC (Rec: 09/28/18 14:58 RCC [email or web address]) Out-Patient Physical Therapy Visit Information Visit Information Visit Type Treatment Note Visit Start Time 13:45 Visit Stop Time 14:40 Total Visit Minutes 55 Visit Number 12 Number of CLAIMS CLERK Visits 0 Evaluation Information Evaluation Date 07/25/18 PT-OP-B Current Condition Start: 07/27/18 11:43 Freq: Status: Active Protocol: Document 07/25/18 14:30 RCC (Rec: 07/27/18 11:58 RCC [email or web address]) Current Condition History of Current Condition Onset Date 2016 Current Complaints L knee pain/stiffness, low back pain, impaired mobility History of Current Condition Pt is a 83 y/o female presenting to physical therapy c/o L knee pain and stiffness , low back pain, andimpaired mobility. Pt has a h/o L distal femur fracture with ORIF 2016. 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 Pt has not fallen in the past 3+ months. Radiograph of lumbar spine showed compression fx's at T10, T12, L3 and L4, as well as grade 1 spondylolisthesis @ L4-5. Prior Treatments and Tests PT in past which she was d/c for multiple falls, unsafe to attend outpatient facility. Radiograph for spine showed compression fx @ T10, T12, L3 and L4. Treatment Goals Patient/Caregiver Goals improve mobility, decrease pain, improve function Prior Functional Status Baseline Function- ADL's Modified Independent Baseline Function- Mobility Modified Independent Baseline Function- Gait short distance outdoors indep. Baseline Function- Other pt was doing her own shopping prior to L distal femur fx and ORIF 07/2017 Current Functional Impairments (Reported) Functional Limitations- ADL's some assistance with cleaning Functional Limitations- Mobility/Gait modified indep. short outdoor gait on level surfaces only Personal Factors Other Personal Factors That May Effect Multiple Sclerosis, L distal Therapy/Recovery femur fx s/p ORIF 07/2017, h/o multiple falls, multiple compression fx's PT-OP-C Subjective Start: 07/27/18 11:43 Freq: Status: Active Protocol: Document 09/28/18 14:40 RCC (Rec: 09/28/18 14:58 [facility] [email or web address]) OP-PT Subjective Patient Comments Patient Comments Pt states she is moving well today, she was a little sore after last visit but does not have any new complaints. PT-OP-D Balance Start: 07/27/18 11:43 Freq: Status: Active Protocol: Document 07/25/18 14:30 RCC (Rec: 07/27/18 12:01 RCC [email or web address]) Balance Tests Single Limb Standing Single Limb- Right unable Single Limb- Left unable PT-OP-E Functional Tests Start: 07/27/18 11:43 Freq: Status: Active Protocol: Document 09/14/18 15:15 RCC (Rec: 09/15/18 14:06 RCC [email or web address]) Functional Tests Timed Up and Go (TUG) Score 18.28 TUG Impairment Rating 80 to <100% Impaired (Score 18 -19) PT-OP-F Manual Assessment Start: 07/27/18 11:43 Freq: Status: Active Protocol: Document 09/19/18 14:30 RCC (Rec: 09/19/18 15:54 [facility] [email or web address]) Manual Assessments Other Manual Assessments Other Manual Assessments mild lateral tilt of L patella PT-OP-G Mobility & Gait Start: 07/27/18 11:43 Freq: Status: Active Protocol: Document 08/24/18 14:30 RCC (Rec: 08/26/18 13:21 RCC [email or web address]) OP Gait Assessment Comments Gait Comments decreased step length on the R , occasional decreased foot clearance bilaterally. PT-OP-K Range of Motion Start: 07/27/18 11:43 Freq: Status: Active Protocol: Document 09/28/18 14:40 RCC (Rec: 09/28/18 14:58 [facility] [email or web address]) Knee Goniometric Range of Motion Knee Measured in Degrees Left Knee ROM WFL No Patient Position Supine Flexion Active (degrees) 110 Flexion Passive (degrees) 112 PT-OP-L Special Tests Start: 07/27/18 11:43 Freq: Status: Active Protocol: Document 07/25/18 14:30 RCC (Rec: 07/27/18 15:47 RCC [email or web address]) Special Tests Lumbar Spine Special Tests Straight Leg Raise Test Results positive on the L @ 45 deg PT-OP-M Strength Start: 07/27/18 11:43 Freq: Status: Active Protocol: Document 09/14/18 15:15 RCC (Rec: 09/15/18 14:06 RCC [email or web address]) Hip Strength Hip Manual Muscle Testing Left Flexion (L2) 4 Good Knee Strength Knee Manual Muscle Testing Left Flexion (S2) 4 Good Extension (L3) 3+ Fair+ PT-OP-Q Treatments Start: 07/27/18 11:43 Freq: Status: Active Protocol: Document 09/28/18 14:40 RCC (Rec: 09/28/18 14:58 [facility] [email or web address]) Therapeutic Exercises Supine Exercises heel slide Side left Reps/Minutes 10 Other Exercises hip flexors and quad stretch Other Exercise Name hip flexor and quad stretch Side left Reps/Minutes 3x30 sec each Comments manual Gait Training Gait Activity 2 Description gait Device Used 4WW Level of Assistance indep. VC Surface level Distance/Duration 300 ft Treatment Focus gluteal activation, knee ROM, push-off Manual Therapy Treatment Soft Tissue Mobilization L quadriceps Body Location L quadriceps Mobilization Type Rolling Intensity/Depth Moderate Body Position Hooklying Joint Mobilizations tibiofemoral Joint tibiofemoral Direction A/P tibia on femur Grade IV PF Joint patellofemoral Direction medial, inf, superior Grade III Body Position Supine PT-OP-R Modalities Start: 07/27/18 11:43 Freq: Status: Active Protocol: Document 09/28/18 14:40 RCC (Rec: 09/28/18 14:58 [place] [id number]) Hot Pack/Cold Pack Treatment Cold Pack Location L knee and l/s (l/s with extra layer) Patient Position Hooklying Treatment Duration (minutes) 10 Patient Tolerance Good Comments bolster PT-OP-T Assessment and Plan Start: 07/27/18 11:43 Freq: Status: Active Protocol: Document 09/28/18 14:40 RCC (Rec: 09/28/18 14:58 [facility] [email or web address]) Physical Therapy Assessment Assessment Summary Assessment Pt still with joint hypomobility and significant soft tissue restriction of the rectus femoris on the L. Pt continues to be highly motivated but is limited by multiple co-morbidities as well as prolonged recovery from her fall s/p ORIF. Physical Therapy Plan Frequency and Duration Frequency of Treatment 2x/Week Duration of Treatment 12 weeks Plan of Care Start Date 07/25/18 Plan of Care End Date 10/17/18 Next Visit Focus/Plan Next Note Type Treatment Note Next Visit Plan L knee ROM, joint mobilizations, gait and strength.
--- NOTE | 2018-10-05 14:30 | PT.OTN ---
Current Diagnoses Multiple sclerosis (10/05/18) Unspecified osteoarthritis, unspecified site (10/05/18) Physical Therapy Treatment Note PT-OP-A Visit Information Start: 07/27/18 11:43 Freq: Status: Active Protocol: Document 10/05/18 14:30 RCC (Rec: 10/05/18 14:53 RCC [email or web address]) Out-Patient Physical Therapy Visit Information Visit Information Visit Type Treatment Note Visit Start Time 13:45 Visit Stop Time 14:33 Total Visit Minutes 48 Visit Number 13 Number of CLEANING MAID Visits 0 Evaluation Information Evaluation Date 07/25/18 PT-OP-B Current Condition Start: 07/27/18 11:43 Freq: Status: Active Protocol: Document 07/25/18 14:30 RCC (Rec: 07/27/18 11:58 RCC [email or web address]) Current Condition History of Current Condition Onset Date 2016 Current Complaints L knee pain/stiffness, low back pain, impaired mobility History of Current Condition Pt is a 83 y/o female presenting to physical therapy c/o L knee pain and stiffness , low back pain, andimpaired mobility. Pt has a h/o L distal femur fracture with ORIF 2016. 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 Pt has not fallen in the past 3+ months. Radiograph of lumbar spine showed compression fx's at T10, T12, L3 and L4, as well as grade 1 spondylolisthesis @ L4-5. Prior Treatments and Tests PT in past which she was d/c for multiple falls, unsafe to attend outpatient facility. Radiograph for spine showed compression fx @ T10, T12, L3 and L4. Treatment Goals Patient/Caregiver Goals improve mobility, decrease pain, improve function Prior Functional Status Baseline Function- ADL's Modified Independent Baseline Function- Mobility Modified Independent Baseline Function- Gait short distance outdoors indep. Baseline Function- Other pt was doing her own shopping prior to L distal femur fx and ORIF 07/2017 Current Functional Impairments (Reported) Functional Limitations- ADL's some assistance with cleaning Functional Limitations- Mobility/Gait modified indep. short outdoor gait on level surfaces only Personal Factors Other Personal Factors That May Effect Multiple Sclerosis, L distal Therapy/Recovery femur fx s/p ORIF 07/2017, h/o multiple falls, multiple compression fx's PT-OP-C Subjective Start: 07/27/18 11:43 Freq: Status: Active Protocol: Document 10/05/18 14:30 RCC (Rec: 10/05/18 14:53 RCC [email or web address]) OP-PT Subjective Patient Comments Patient Comments Pt was having increased pain since last visit, she attributes to increased joint mobilizations last time. She is having somewhat less pain. She admits her edema in the BLEs are worse this week. PT-OP-D Balance Start: 07/27/18 11:43 Freq: Status: Active Protocol: Document 07/25/18 14:30 RCC (Rec: 07/27/18 12:01 RCC [email or web address]) Balance Tests Single Limb Standing Single Limb- Right unable Single Limb- Left unable PT-OP-E Functional Tests Start: 07/27/18 11:43 Freq: Status: Active Protocol: Document 09/14/18 15:15 RCC (Rec: 09/15/18 14:06 RCC [email or web address]) Functional Tests Timed Up and Go (TUG) Score 18.28 TUG Impairment Rating 80 to <100% Impaired (Score 18 -19) PT-OP-F Manual Assessment Start: 07/27/18 11:43 Freq: Status: Active Protocol: Document 10/05/18 14:30 RCC (Rec: 10/05/18 14:53 RCC [email or web address]) Manual Assessments Soft Tissue Assessment Soft Tissue Mobility Assessment TTP: L pes anserine, adductors , quadriceps PT-OP-G Mobility & Gait Start: 07/27/18 11:43 Freq: Status: Active Protocol: Document 08/24/18 14:30 RCC (Rec: 08/26/18 13:21 RCC [email or web address]) OP Gait Assessment Comments Gait Comments decreased step length on the R , occasional decreased foot clearance bilaterally. PT-OP-K Range of Motion Start: 07/27/18 11:43 Freq: Status: Active Protocol: Document 09/28/18 14:40 RCC (Rec: 09/28/18 14:58 RCC [email or web address]) Knee Goniometric Range of Motion Knee Measured in Degrees Left Knee ROM WFL No Patient Position Supine Flexion Active (degrees) 110 Flexion Passive (degrees) 112 PT-OP-L Special Tests Start: 07/27/18 11:43 Freq: Status: Active Protocol: Document 07/25/18 14:30 RCC (Rec: 07/27/18 15:47 RCC [email or web address]) Special Tests Lumbar Spine Special Tests Straight Leg Raise Test Results positive on the L @ 45 deg PT-OP-M Strength Start: 07/27/18 11:43 Freq: Status: Active Protocol: Document 09/14/18 15:15 RCC (Rec: 09/15/18 14:06 RCC [email or web address]) Hip Strength Hip Manual Muscle Testing Left Flexion (L2) 4 Good Knee Strength Knee Manual Muscle Testing Left Flexion (S2) 4 Good Extension (L3) 3+ Fair+ PT-OP-Q Treatments Start: 07/27/18 11:43 Freq: Status: Active Protocol: Document 10/05/18 14:30 RCC (Rec: 10/05/18 14:53 [facility] [email or web address]) Cardio Equipment Recumbent Elliptical (qcue) Duration (Minutes) 5 Resistance 1 Seat Position 7 Other noted mild pain Manual Therapy Treatment Soft Tissue Mobilization adductors Body Location L adductors Mobilization Type Myofascial Release Rolling Intensity/Depth Moderate Body Position Hooklying L quadriceps Body Location L quadriceps Mobilization Type Myofascial Release Rolling Intensity/Depth Moderate Body Position Hooklying scar tissue Body Location lateral L thigh Mobilization Type Other Intensity/Depth Moderate Body Position Hooklying PT-OP-R Modalities Start: 07/27/18 11:43 Freq: Status: Active Protocol: Document 10/05/18 14:30 RCC (Rec: 10/05/18 14:53 [facility] [email or web address]) Hot Pack/Cold Pack Treatment Cold Pack Location L knee Patient Position Hooklying Treatment Duration (minutes) 10 Patient Tolerance Good Comments bolster PT-OP-T Assessment and Plan Start: 07/27/18 11:43 Freq: Status: Active Protocol: Document 10/05/18 14:30 RCC (Rec: 10/05/18 14:53 [facility] [email or web address]) Physical Therapy Assessment Assessment Summary Assessment Pt with increased BLE edema, recommended that she wear her compression stockings to assist with edema management. She had increased pain with gentle knee ROM on recumbent elliptical today, therefore, she only really tolerated STM for this session. Physical Therapy Plan Frequency and Duration Frequency of Treatment 2x/Week Duration of Treatment 12 weeks Plan of Care Start Date 07/25/18 Plan of Care End Date 10/17/18 Next Visit Focus/Plan Next Note Type Treatment Note Next Visit Plan progress gait and L knee ROM as tolerated; assess pt's tolerance to this treatment
--- NOTE | 2018-10-10 14:30 | PT.OPPOC ---
Current Diagnoses Multiple sclerosis (10/10/18) Unspecified osteoarthritis, unspecified site (10/10/18) Provider Visit Care Team Role Provider Type Blayne Sims MD Attending Provider Physician Family Provider Primary Care Provider Specialty: Internal Medicine Address: [address] [place] [address], [id number] Email: Plan Of Care PT-OP-T Assessment and Plan Start: 07/27/18 11:43 Freq: Status: Active Protocol: Document 10/10/18 14:30 RCC (Rec: 10/10/18 17:40 RCC [email or web address]) Physical Therapy Assessment Goals Four Impairment Gait/Timed Up and Go Short Term Goal (STG) Timed Up and Go to <30 seconds . 09/14/18: achieved STG Duration achieved Electrical Design Technician Goal (LTG) Timed Up and Go to <20 seconds to demonstrate improved gait speed, and decreasing fall risk. 09/14/18: achieved LTG Duration achieved Three Impairment L knee ROM Usp Goal (LTG) 0-120 degrees of the L knee to improve gait and functional motion. 10/10/18: some progress with extension, no significant change with flexion(2-107) LTG Duration 12 weeks Two Impairment pain in low back 7/10 Short Term Goal (STG) 5/10 pain reported in low back . 10/10/18: achieved STG Duration achieved Usp Goal (LTG) 3/10 pain reported in low back or less to demonstrate improved thoracolumbar stability. LTG Duration 12 weeks One Impairment Lower Extremity Functional Scale (14/80) Short Term Goal (STG) Score: 20/80 10/10/18: goal achieved (23/80 ) STG Duration achieved Electrical Design Technician Goal (LTG) Score: 25/80 or greater to demonstrate improvements with functional mobility. LTG Duration 12 weeks Progress Towards Goals Progress Towards Goals Slow Progress due to Activity Tolerance Slow Progress due to Medical Issues Slow Progress - Other Assessment Summary Assessment Pt has progressed with pain rated 5/10 or less in low back . Her score on the Lower Extremity Functional Scale has improved to 23/80 from 14/80, which shows improvements with her overall daily function related to her L knee pain and impairments. Pt still with significant stiffness in the L knee ROM in flexion, but improving with extension. Pt's lack of improvement in L knee flexion likely due to increased BLE swelling and pain over the past two weeks, but is slowly improving per pt . Pt's L knee extension strength improved to 4-/5 with manual muscle testing from 3+ /5 on initial evaluation. Overall, pt requires continued skilled physical therapy to progress her L knee ROM, strength, gait, general mobility and safety with mobility, and to decrease pain in the low back and L knee. Physical Therapy Plan Frequency and Duration Frequency of Treatment 2x/Week Duration of Treatment 12 weeks Plan of Care Start Date 10/10/18 Plan of Care End Date 01/02/19 Therapeutic Interventions Therapeutic Interventions Aquatic Therapy Balance Training Gait Training Home Exercise Program Joint Mobilizations Manual Therapy Neuromuscular Re-education Patient/Caregiver Education Self-Care/Home Management Soft Tissue Mobilization Taping Therapeutic Activities Therapeutic Exercises Modalities Cold Pack/Ice Massage Electric Stimulation Ultrasound Next Visit Focus/Plan Next Note Type Treatment Note Next Visit Plan cont. STR for the LLE, advance core stability and LE strengthening as tolerated. Plan of Care Dates Plan of Care Start Date 10/10/18 Plan of Care End Date 01/02/19 Please Sign and Return: I have reviewed this Plan of Care and certify that the skilled therapy services above are required to meet the patient?s needs. Physician Signature Date Printed Name and Credentials Clinical Instructor Signature Printed Name and Credentials
--- NOTE | 2018-10-10 14:30 | PT.OTN ---
Current Diagnoses Multiple sclerosis (10/10/18) Unspecified osteoarthritis, unspecified site (10/10/18) Physical Therapy Treatment Note PT-OP-A Visit Information Start: 07/27/18 11:43 Freq: Status: Active Protocol: Document 10/10/18 14:30 [facility] (Rec: 10/10/18 17:40 [email or web address]) Out-Patient Physical Therapy Visit Information Visit Information Visit Type Treatment Note Visit Start Time 13:45 Visit Stop Time 14:30 Total Visit Minutes 45 Visit Number 14 Number of SHEEP BONER Visits 0 Evaluation Information Evaluation Date 07/25/18 PT-OP-B Current Condition Start: 07/27/18 11:43 Freq: Status: Active Protocol: Document 07/25/18 14:30 [facility] (Rec: 07/27/18 11:58 [email or web address]) Current Condition History of Current Condition Onset Date 2016 Current Complaints L knee pain/stiffness, low back pain, impaired mobility History of Current Condition Pt is a 83 y/o female presenting to physical therapy c/o L knee pain and stiffness , low back pain, andimpaired mobility. Pt has a h/o L distal femur fracture with ORIF 2016. 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 Pt has not fallen in the past 3+ months. Radiograph of lumbar spine showed compression fx's at T10, T12, L3 and L4, as well as grade 1 spondylolisthesis @ L4-5. Prior Treatments and Tests PT in past which she was d/c for multiple falls, unsafe to attend outpatient facility. Radiograph for spine showed compression fx @ T10, T12, L3 and L4. Treatment Goals Patient/Caregiver Goals improve mobility, decrease pain, improve function Prior Functional Status Baseline Function- ADL's Modified Independent Baseline Function- Mobility Modified Independent Baseline Function- Gait short distance outdoors indep. Baseline Function- Other pt was doing her own shopping prior to L distal femur fx and ORIF 07/2017 Current Functional Impairments (Reported) Functional Limitations- ADL's some assistance with cleaning Functional Limitations- Mobility/Gait modified indep. short outdoor gait on level surfaces only Personal Factors Other Personal Factors That May Effect Multiple Sclerosis, L distal Therapy/Recovery femur fx s/p ORIF 07/2017, h/o multiple falls, multiple compression fx's PT-OP-C Subjective Start: 07/27/18 11:43 Freq: Status: Active Protocol: Document 10/10/18 14:30 [facility] (Rec: 10/10/18 17:40 [facility] [email or web address]) OP-PT Subjective Patient Comments Patient Comments Pt states that her back pain has decreased; it is still present but not as freqent or intense. Pt's L knee pain is improved since her set-back last week, she thinks may be due to the weather and her MS. Patient Questionnaires Lower Extremity Functional Scale LEFS Score 23 LEFS Impairment 60 to 79% Impaired (Score 17- 31) OP-PT Pain Assessment Location L knee Intensity 5 Scale Used Numeric (1 - 10) Bilateral Lower Back Intensity 5 Scale Used Numeric (1 - 10) PT-OP-D Balance Start: 07/27/18 11:43 Freq: Status: Active Protocol: Document 07/25/18 14:30 [facility] (Rec: 07/27/18 12:01 [facility] [email or web address]) Balance Tests Single Limb Standing Single Limb- Right unable Single Limb- Left unable PT-OP-E Functional Tests Start: 07/27/18 11:43 Freq: Status: Active Protocol: Document 09/14/18 15:15 [facility] (Rec: 09/15/18 14:06 [facility] [email or web address]) Functional Tests Timed Up and Go (TUG) Score 18.28 TUG Impairment Rating 80 to <100% Impaired (Score 18 -19) PT-OP-F Manual Assessment Start: 07/27/18 11:43 Freq: Status: Active Protocol: Document 10/10/18 14:30 [facility] (Rec: 10/10/18 17:40 [facility] [email or web address]) Manual Assessments Joint Mobility Assessment Joint Mobility Assessment hypomobility L patellofemoral joint medial, inferior and superior glide PT-OP-G Mobility & Gait Start: 07/27/18 11:43 Freq: Status: Active Protocol: Document 10/10/18 14:30 [facility] (Rec: 10/10/18 17:40 [facility] [email or web address]) OP Gait Assessment Gait Deviations General Gait Pattern Antalgic Decreased Stride Length Decreased Feet Clearance Flexed Trunk Step-to Gait PT-OP-K Range of Motion Start: 07/27/18 11:43 Freq: Status: Active Protocol: Document 10/10/18 14:30 [facility] (Rec: 10/10/18 17:40 [facility] [email or web address]) Knee Goniometric Range of Motion Knee Measured in Degrees Left Knee ROM WFL No Patient Position Supine Flexion Active (degrees) 107 Flexion Passive (degrees) 111 Extension Active (degrees) 2 Extension Passive (degrees) 1 PT-OP-L Special Tests Start: 07/27/18 11:43 Freq: Status: Active Protocol: Document 07/25/18 14:30 [facility] (Rec: 07/27/18 15:47 [facility] [email or web address]) Special Tests Lumbar Spine Special Tests Straight Leg Raise Test Results positive on the L @ 45 deg PT-OP-M Strength Start: 07/27/18 11:43 Freq: Status: Active Protocol: Document 10/10/18 14:30 [facility] (Rec: 10/10/18 17:40 [facility] [email or web address]) Hip Strength Hip Manual Muscle Testing Left Flexion (L2) 4 Good Knee Strength Knee Manual Muscle Testing Left Flexion (S2) 4 Good Extension (L3) 4- Good- PT-OP-Q Treatments Start: 07/27/18 11:43 Freq: Status: Active Protocol: Document 10/10/18 14:30 [facility] (Rec: 10/10/18 17:40 [facility] [email or web address]) Cardio Equipment Recumbent Elliptical (Biodex) Duration (Minutes) 8 Resistance 1 Seat Position 7 Gym Equipment Therapeutic Ball knee flex/extension Exercise Details bilateral knee flexion/ extension with ball Ball Size/Color 55 cm ball Body Position Supine Reps/Duration 2x20 Therapeutic Exercises Supine Exercises heel slide Side left Reps/Minutes 10 Manual Therapy Treatment Soft Tissue Mobilization adductors Body Location L adductors Mobilization Type Myofascial Release Rolling Intensity/Depth Moderate Body Position Hooklying L quadriceps Body Location L quadriceps Mobilization Type Myofascial Release Rolling Intensity/Depth Moderate Body Position Hooklying scar tissue Body Location lateral L thigh Mobilization Type Other Intensity/Depth Moderate Body Position Hooklying Other Other Manual Treatments LE MMT, L knee ROM PT-OP-R Modalities Start: 07/27/18 11:43 Freq: Status: Active Protocol: Document 10/05/18 14:30 [facility] (Rec: 10/05/18 14:53 [facility] [email or web address]) Hot Pack/Cold Pack Treatment Cold Pack Location L knee Patient Position Hooklying Treatment Duration (minutes) 10 Patient Tolerance Good Comments bolster PT-OP-T Assessment and Plan Start: 07/27/18 11:43 Freq: Status: Active Protocol: Document 10/10/18 14:30 [facility] (Rec: 10/10/18 17:40 [facility] [email or web address]) Physical Therapy Assessment Goals Four Impairment Gait/Timed Up and Go Short Term Goal (STG) Timed Up and Go to <30 seconds . 09/14/18: achieved STG Duration achieved Linderman Operator Goal (LTG) Timed Up and Go to <20 seconds to demonstrate improved gait speed, and decreasing fall risk. 09/14/18: achieved LTG Duration achieved Three Impairment L knee ROM Nursing Home Goal (LTG) 0-120 degrees of the L knee to improve gait and functional motion. 10/10/18: some progress with extension, no significant change with flexion(2-107) LTG Duration 12 weeks Two Impairment pain in low back 7/10 Short Term Goal (STG) 5/10 pain reported in low back . 10/10/18: achieved STG Duration achieved Nursing Home Goal (LTG) 3/10 pain reported in low back or less to demonstrate improved thoracolumbar stability. LTG Duration 12 weeks One Impairment Lower Extremity Functional Scale (14/80) Short Term Goal (STG) Score: 20/80 10/10/18: goal achieved (23/80 ) STG Duration achieved Linderman Operator Goal (LTG) Score: 25/80 or greater to demonstrate improvements with functional mobility. LTG Duration 12 weeks Progress Towards Goals Progress Towards Goals Slow Progress due to Activity Tolerance Slow Progress due to Medical Issues Slow Progress - Other Assessment Summary Assessment Pt has progressed with pain rated 5/10 or less in low back . Her score on the Lower Extremity Functional Scale has improved to 23/80 from 14/80, which shows improvements with her overall daily function related to her L knee pain and impairments. Pt still with significant stiffness in the L knee ROM in flexion, but improving with extension. Pt's lack of improvement in L knee flexion likely due to increased BLE swelling and pain over the past two weeks, but is slowly improving per pt . Pt's L knee extension strength improved to 4-/5 with manual muscle testing from 3+ /5 on initial evaluation. Overall, pt requires continued skilled physical therapy to progress her L knee ROM, strength, gait, general mobility and safety with mobility, and to decrease pain in the low back and L knee. Physical Therapy Plan Frequency and Duration Frequency of Treatment 2x/Week Duration of Treatment 12 weeks Plan of Care Start Date 10/10/18 Plan of Care End Date 01/02/19 Therapeutic Interventions Therapeutic Interventions Aquatic Therapy Balance Training Gait Training Home Exercise Program Joint Mobilizations Manual Therapy Neuromuscular Re-education Patient/Caregiver Education Self-Care/Home Management Soft Tissue Mobilization Taping Therapeutic Activities Therapeutic Exercises Modalities Cold Pack/Ice Massage Electric Stimulation Ultrasound Next Visit Focus/Plan Next Note Type Treatment Note Next Visit Plan cont. STR for the LLE, advance core stability and LE strengthening as tolerated.
--- NOTE | 2018-10-17 16:00 | PT.OTN ---
Current Diagnoses Multiple sclerosis (10/17/18) Unspecified osteoarthritis, unspecified site (10/17/18) Physical Therapy Treatment Note PT-OP-A Visit Information Start: 07/27/18 11:43 Freq: Status: Active Protocol: Document 10/17/18 16:00 [facility] (Rec: 10/17/18 17:55 [facility] [email or web address]) Out-Patient Physical Therapy Visit Information Visit Information Visit Type Treatment Note Visit Start Time 15:15 Visit Stop Time 16:09 Total Visit Minutes 54 Visit Number 15 Number of PROCUREMENT ACCOUNTANT Visits 0 Evaluation Information Evaluation Date 07/25/18 PT-OP-B Current Condition Start: 07/27/18 11:43 Freq: Status: Active Protocol: Document 07/25/18 14:30 [facility] (Rec: 07/27/18 11:58 [facility] [email or web address]) Current Condition History of Current Condition Onset Date 2016 Current Complaints L knee pain/stiffness, low back pain, impaired mobility History of Current Condition Pt is a 83 y/o female presenting to physical therapy c/o L knee pain and stiffness , low back pain, andimpaired mobility. Pt has a h/o L distal femur fracture with ORIF 2016. 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 Pt has not fallen in the past 3+ months. Radiograph of lumbar spine showed compression fx's at T10, T12, L3 and L4, as well as grade 1 spondylolisthesis @ L4-5. Prior Treatments and Tests PT in past which she was d/c for multiple falls, unsafe to attend outpatient facility. Radiograph for spine showed compression fx @ T10, T12, L3 and L4. Treatment Goals Patient/Caregiver Goals improve mobility, decrease pain, improve function Prior Functional Status Baseline Function- ADL's Modified Independent Baseline Function- Mobility Modified Independent Baseline Function- Gait short distance outdoors indep. Baseline Function- Other pt was doing her own shopping prior to L distal femur fx and ORIF 07/2017 Current Functional Impairments (Reported) Functional Limitations- ADL's some assistance with cleaning Functional Limitations- Mobility/Gait modified indep. short outdoor gait on level surfaces only Personal Factors Other Personal Factors That May Effect Multiple Sclerosis, L distal Therapy/Recovery femur fx s/p ORIF 07/2017, h/o multiple falls, multiple compression fx's PT-OP-C Subjective Start: 07/27/18 11:43 Freq: Status: Active Protocol: Document 10/17/18 16:00 [facility] (Rec: 10/17/18 17:55 [facility] [email or web address]) OP-PT Subjective Patient Comments Patient Comments Pt is feeling better this week , she has had less discomfort with initial standing in her L knee. PT-OP-D Balance Start: 07/27/18 11:43 Freq: Status: Active Protocol: Document 07/25/18 14:30 [facility] (Rec: 07/27/18 12:01 [facility] [email or web address]) Balance Tests Single Limb Standing Single Limb- Right unable Single Limb- Left unable PT-OP-E Functional Tests Start: 07/27/18 11:43 Freq: Status: Active Protocol: Document 09/14/18 15:15 [facility] (Rec: 09/15/18 14:06 [facility] [email or web address]) Functional Tests Timed Up and Go (TUG) Score 18.28 TUG Impairment Rating 80 to <100% Impaired (Score 18 -19) PT-OP-F Manual Assessment Start: 07/27/18 11:43 Freq: Status: Active Protocol: Document 10/10/18 14:30 [facility] (Rec: 10/10/18 17:40 [facility] [email or web address]) Manual Assessments Joint Mobility Assessment Joint Mobility Assessment hypomobility L patellofemoral joint medial, inferior and superior glide PT-OP-G Mobility & Gait Start: 07/27/18 11:43 Freq: Status: Active Protocol: Document 10/17/18 16:00 [facility] (Rec: 10/17/18 17:55 [facility] [email or web address]) OP Gait Assessment Comments Gait Comments L knee flexion during gait WNL PT-OP-K Range of Motion Start: 07/27/18 11:43 Freq: Status: Active Protocol: Document 10/10/18 14:30 [facility] (Rec: 10/10/18 17:40 [facility] [email or web address]) Knee Goniometric Range of Motion Knee Measured in Degrees Left Knee ROM WFL No Patient Position Supine Flexion Active (degrees) 107 Flexion Passive (degrees) 111 Extension Active (degrees) 2 Extension Passive (degrees) 1 PT-OP-L Special Tests Start: 07/27/18 11:43 Freq: Status: Active Protocol: Document 07/25/18 14:30 [facility] (Rec: 07/27/18 15:47 [facility] [email or web address]) Special Tests Lumbar Spine Special Tests Straight Leg Raise Test Results positive on the L @ 45 deg PT-OP-M Strength Start: 07/27/18 11:43 Freq: Status: Active Protocol: Document 10/10/18 14:30 [facility] (Rec: 10/10/18 17:40 [facility] [email or web address]) Hip Strength Hip Manual Muscle Testing Left Flexion (L2) 4 Good Knee Strength Knee Manual Muscle Testing Left Flexion (S2) 4 Good Extension (L3) 4- Good- PT-OP-Q Treatments Start: 07/27/18 11:43 Freq: Status: Active Protocol: Document 10/17/18 16:00 [facility] (Rec: 10/17/18 17:55 [facility] [email or web address]) Cardio Equipment Recumbent Elliptical (Biodex) Duration (Minutes) 8 Resistance 1 Seat Position 7 Gym Equipment Therapeutic Ball knee flex/extension Exercise Details bilateral knee flexion/ extension with ball Ball Size/Color 55 cm ball Body Position Supine Reps/Duration x15 each Comments 1 set without resistance, 1 set with L2 band around feet ( reverse leg press) Gait Training Gait Activity gait in // bars Description gait Device Used // bars Surface level Treatment Focus L knee ROM, push off L, step length, gluteal activation, arm swing Manual Therapy Treatment Soft Tissue Mobilization L quadriceps Body Location L quadriceps Mobilization Type Myofascial Release Rolling Intensity/Depth Moderate Body Position Hooklying scar tissue Body Location lateral L thigh Mobilization Type Other Intensity/Depth Moderate Body Position Hooklying Joint Mobilizations PF Joint patellofemoral Direction medial, inf, superior Grade III Body Position Supine PT-OP-R Modalities Start: 07/27/18 11:43 Freq: Status: Active Protocol: Document 10/17/18 16:00 [facility] (Rec: 10/17/18 17:55 [facility] [email or web address]) Hot Pack/Cold Pack Treatment Cold Pack Location L knee Patient Position Hooklying Treatment Duration (minutes) 10 Patient Tolerance Good Comments bolster PT-OP-T Assessment and Plan Start: 07/27/18 11:43 Freq: Status: Active Protocol: Document 10/17/18 16:00 [facility] (Rec: 10/17/18 17:55 [facility] [email or web address]) Physical Therapy Assessment Assessment Summary Assessment Pt with improved functional L knee ROM with gait to normal this session with cuing. Pt has tendency to have decreased arm swing bilaterally during gait without a device, likely due to prolonged time using 4WW and impaired balance and strength. Pt tolerated more activity today with increased resistance with knee flexion and extension on ball, but fatigues quickly. Physical Therapy Plan Frequency and Duration Frequency of Treatment 2x/Week Duration of Treatment 12 weeks Plan of Care Start Date 10/10/18 Plan of Care End Date 01/02/19 Next Visit Focus/Plan Next Note Type Treatment Note Next Visit Plan advance gait training as tolerated, Shuttle Recovery if able for knee ROM and strength.
--- NOTE | 2018-10-24 16:50 | PT.OTN ---
Current Diagnoses Multiple sclerosis (10/24/18) Unspecified osteoarthritis, unspecified site (10/24/18) Physical Therapy Treatment Note PT-OP-A Visit Information Start: 07/27/18 11:43 Freq: Status: Active Protocol: Document 10/24/18 16:50 [facility] (Rec: 10/24/18 17:04 [facility] [email or web address]) Out-Patient Physical Therapy Visit Information Visit Information Visit Type Treatment Note Visit Start Time 16:00 Visit Stop Time 16:50 Total Visit Minutes 50 Visit Number 16 Number of SHOE WORKER Visits 0 Evaluation Information Evaluation Date 07/25/18 PT-OP-B Current Condition Start: 07/27/18 11:43 Freq: Status: Active Protocol: Document 07/25/18 14:30 [facility] (Rec: 07/27/18 11:58 [facility] [email or web address]) Current Condition History of Current Condition Onset Date 2016 Current Complaints L knee pain/stiffness, low back pain, impaired mobility History of Current Condition Pt is a 83 y/o female presenting to physical therapy c/o L knee pain and stiffness , low back pain, andimpaired mobility. Pt has a h/o L distal femur fracture with ORIF 2016. 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 Pt has not fallen in the past 3+ months. Radiograph of lumbar spine showed compression fx's at T10, T12, L3 and L4, as well as grade 1 spondylolisthesis @ L4-5. Prior Treatments and Tests PT in past which she was d/c for multiple falls, unsafe to attend outpatient facility. Radiograph for spine showed compression fx @ T10, T12, L3 and L4. Treatment Goals Patient/Caregiver Goals improve mobility, decrease pain, improve function Prior Functional Status Baseline Function- ADL's Modified Independent Baseline Function- Mobility Modified Independent Baseline Function- Gait short distance outdoors indep. Baseline Function- Other pt was doing her own shopping prior to L distal femur fx and ORIF 07/2017 Current Functional Impairments (Reported) Functional Limitations- ADL's some assistance with cleaning Functional Limitations- Mobility/Gait modified indep. short outdoor gait on level surfaces only Personal Factors Other Personal Factors That May Effect Multiple Sclerosis, L distal Therapy/Recovery femur fx s/p ORIF 07/2017, h/o multiple falls, multiple compression fx's PT-OP-C Subjective Start: 07/27/18 11:43 Freq: Status: Active Protocol: Document 10/24/18 16:50 [facility] (Rec: 10/24/18 17:04 [facility] [email or web address]) OP-PT Subjective Patient Comments Patient Comments Pt was able to return to her stationary cycling at home, still stiff and painful but has been able to progress. PT-OP-D Balance Start: 07/27/18 11:43 Freq: Status: Active Protocol: Document 07/25/18 14:30 [facility] (Rec: 07/27/18 12:01 [facility] [email or web address]) Balance Tests Single Limb Standing Single Limb- Right unable Single Limb- Left unable PT-OP-E Functional Tests Start: 07/27/18 11:43 Freq: Status: Active Protocol: Document 09/14/18 15:15 [facility] (Rec: 09/15/18 14:06 [facility] [email or web address]) Functional Tests Timed Up and Go (TUG) Score 18.28 TUG Impairment Rating 80 to <100% Impaired (Score 18 -19) PT-OP-F Manual Assessment Start: 07/27/18 11:43 Freq: Status: Active Protocol: Document 10/24/18 16:50 [facility] (Rec: 10/24/18 17:04 [facility] [email or web address]) Manual Assessments Joint Mobility Assessment Joint Mobility Assessment hypomobility L patellofemoral joint medial, inferior and superior glide PT-OP-G Mobility & Gait Start: 07/27/18 11:43 Freq: Status: Active Protocol: Document 10/17/18 16:00 [facility] (Rec: 10/17/18 17:55 [facility] [email or web address]) OP Gait Assessment Comments Gait Comments L knee flexion during gait WNL PT-OP-K Range of Motion Start: 07/27/18 11:43 Freq: Status: Active Protocol: Document 10/10/18 14:30 [facility] (Rec: 10/10/18 17:40 [facility] [email or web address]) Knee Goniometric Range of Motion Knee Measured in Degrees Left Knee ROM WFL No Patient Position Supine Flexion Active (degrees) 107 Flexion Passive (degrees) 111 Extension Active (degrees) 2 Extension Passive (degrees) 1 PT-OP-L Special Tests Start: 07/27/18 11:43 Freq: Status: Active Protocol: Document 07/25/18 14:30 [facility] (Rec: 07/27/18 15:47 [facility] [email or web address]) Special Tests Lumbar Spine Special Tests Straight Leg Raise Test Results positive on the L @ 45 deg PT-OP-M Strength Start: 07/27/18 11:43 Freq: Status: Active Protocol: Document 10/10/18 14:30 [facility] (Rec: 10/10/18 17:40 [facility] [email or web address]) Hip Strength Hip Manual Muscle Testing Left Flexion (L2) 4 Good Knee Strength Knee Manual Muscle Testing Left Flexion (S2) 4 Good Extension (L3) 4- Good- PT-OP-Q Treatments Start: 07/27/18 11:43 Freq: Status: Active Protocol: Document 10/24/18 16:50 [facility] (Rec: 10/24/18 17:04 [facility] [email or web address]) Gym Equipment Shuttle Recovery Unilateral Heel Raises Resistance 25 lbs Shuttle Recovery Platform Stable Reps/Time 10 Bilateral Heel Raises Resistance 25 lbs Shuttle Recovery Platform Stable Reps/Time 15 Unilateral Squats Resistance 25 lbs Shuttle Recovery Platform Stable Reps/Time 15 Bilateral Squats Resistance 62 lbs Shuttle Recovery Platform Stable Reps/Time 15 Therapeutic Exercises Standing Exercises heel raises Side bilateral Comments UE support on 4WW HC stretch Standing Exercise Name heel cord stretch Side bilateral Equipment Used DAGO Neuro Re-Education Treatment Balance Activities balance board Details A/P and lateral standing in // bars Comments weight shifting A/P and lateral, static balance PT-OP-R Modalities Start: 07/27/18 11:43 Freq: Status: Active Protocol: Document 10/24/18 16:50 [facility] (Rec: 10/24/18 17:04 [facility] [email or web address]) Hot Pack/Cold Pack Treatment Cold Pack Location L knee Patient Position Hooklying Treatment Duration (minutes) 10 Patient Tolerance Good Comments bolster PT-OP-T Assessment and Plan Start: 07/27/18 11:43 Freq: Status: Active Protocol: Document 10/24/18 16:50 [facility] (Rec: 10/24/18 17:04 [facility] [email or web address]) Physical Therapy Assessment Assessment Summary Assessment Pt with fatigue using Shuttle Leg Press today, required decrease in SL knee extension. Pt's resting position of L patella more medial today, as well as less laterally tilted. She still demonstrated impaired LE strength, L knee ROM, and overall mobility due to pain and the above listed impairments. Physical Therapy Plan Frequency and Duration Frequency of Treatment 2x/Week Duration of Treatment 12 weeks Plan of Care Start Date 10/10/18 Plan of Care End Date 01/02/19 Next Visit Focus/Plan Next Note Type Treatment Note Next Visit Plan cont. increase in LLE strength , gait, and L knee ROM
--- NOTE | 2018-10-31 16:00 | PT.OTN ---
Current Diagnoses Multiple sclerosis (10/31/18) Unspecified osteoarthritis, unspecified site (10/31/18) Physical Therapy Treatment Note PT-OP-A Visit Information Start: 07/27/18 11:43 Freq: Status: Active Protocol: Document 10/31/18 16:00 [facility] (Rec: 10/31/18 17:48 [email or web address]) Out-Patient Physical Therapy Visit Information Visit Information Visit Type Treatment Note Visit Start Time 15:18 Visit Stop Time 16:00 Total Visit Minutes 42 Visit Number 17 Number of J2EE CONSULTANT Visits 0 Evaluation Information Evaluation Date 07/25/18 PT-OP-B Current Condition Start: 07/27/18 11:43 Freq: Status: Active Protocol: Document 07/25/18 14:30 RCC (Rec: 07/27/18 11:58 [facility] [email or web address]) Current Condition History of Current Condition Onset Date 2016 Current Complaints L knee pain/stiffness, low back pain, impaired mobility History of Current Condition Pt is a 83 y/o female presenting to physical therapy c/o L knee pain and stiffness , low back pain, andimpaired mobility. Pt has a h/o L distal femur fracture with ORIF 2016. 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 Pt has not fallen in the past 3+ months. Radiograph of lumbar spine showed compression fx's at T10, T12, L3 and L4, as well as grade 1 spondylolisthesis @ L4-5. Prior Treatments and Tests PT in past which she was d/c for multiple falls, unsafe to attend outpatient facility. Radiograph for spine showed compression fx @ T10, T12, L3 and L4. Treatment Goals Patient/Caregiver Goals improve mobility, decrease pain, improve function Prior Functional Status Baseline Function- ADL's Modified Independent Baseline Function- Mobility Modified Independent Baseline Function- Gait short distance outdoors indep. Baseline Function- Other pt was doing her own shopping prior to L distal femur fx and ORIF 07/2017 Current Functional Impairments (Reported) Functional Limitations- ADL's some assistance with cleaning Functional Limitations- Mobility/Gait modified indep. short outdoor gait on level surfaces only Personal Factors Other Personal Factors That May Effect Multiple Sclerosis, L distal Therapy/Recovery femur fx s/p ORIF 07/2017, h/o multiple falls, multiple compression fx's PT-OP-C Subjective Start: 07/27/18 11:43 Freq: Status: Active Protocol: Document 10/31/18 16:00 RCC (Rec: 10/31/18 17:48 [facility] [email or web address]) OP-PT Subjective Patient Comments Patient Comments Pt's L knee has been a little less sore and painful this past week. 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 PT-OP-D Balance Start: 07/27/18 11:43 Freq: Status: Active Protocol: Document 07/25/18 14:30 RCC (Rec: 07/27/18 12:01 [facility] [email or web address]) Balance Tests Single Limb Standing Single Limb- Right unable Single Limb- Left unable PT-OP-E Functional Tests Start: 07/27/18 11:43 Freq: Status: Active Protocol: Document 09/14/18 15:15 RCC (Rec: 09/15/18 14:06 [facility] [email or web address]) Functional Tests Timed Up and Go (TUG) Score 18.28 TUG Impairment Rating 80 to <100% Impaired (Score 18 -19) PT-OP-F Manual Assessment Start: 07/27/18 11:43 Freq: Status: Active Protocol: Document 10/24/18 16:50 RCC (Rec: 10/24/18 17:04 [facility] [email or web address]) Manual Assessments Joint Mobility Assessment Joint Mobility Assessment hypomobility L patellofemoral joint medial, inferior and superior glide PT-OP-G Mobility & Gait Start: 07/27/18 11:43 Freq: Status: Active Protocol: Document 10/17/18 16:00 RCC (Rec: 10/17/18 17:55 [facility] [email or web address]) OP Gait Assessment Comments Gait Comments L knee flexion during gait WNL PT-OP-K Range of Motion Start: 07/27/18 11:43 Freq: Status: Active Protocol: Document 10/10/18 14:30 RCC (Rec: 10/10/18 17:40 [facility] [email or web address]) Knee Goniometric Range of Motion Knee Measured in Degrees Left Knee ROM WFL No Patient Position Supine Flexion Active (degrees) 107 Flexion Passive (degrees) 111 Extension Active (degrees) 2 Extension Passive (degrees) 1 PT-OP-L Special Tests Start: 07/27/18 11:43 Freq: Status: Active Protocol: Document 07/25/18 14:30 RCC (Rec: 07/27/18 15:47 [facility] [email or web address]) Special Tests Lumbar Spine Special Tests Straight Leg Raise Test Results positive on the L @ 45 deg PT-OP-M Strength Start: 07/27/18 11:43 Freq: Status: Active Protocol: Document 10/10/18 14:30 RCC (Rec: 10/10/18 17:40 [facility] [email or web address]) Hip Strength Hip Manual Muscle Testing Left Flexion (L2) 4 Good Knee Strength Knee Manual Muscle Testing Left Flexion (S2) 4 Good Extension (L3) 4- Good- PT-OP-Q Treatments Start: 07/27/18 11:43 Freq: Status: Active Protocol: Document 10/31/18 16:00 RCC (Rec: 10/31/18 17:48 [facility] [email or web address]) Cardio Equipment Recumbent Elliptical ([employer]) Duration (Minutes) 6 Resistance 1 Seat Position 7 Therapeutic Exercises Standing Exercises knee flexion Standing Exercise Name HS curls Side left Equipment Used // bars Reps/Minutes 2x10 heel raises Side bilateral Comments UE support on // bars Gait Training Gait Activity gait in // bars Description gait Device Used // bars Surface level Treatment Focus L knee ROM, push off L, step length, arm swing Manual Therapy Treatment Soft Tissue Mobilization L quadriceps Body Location L quadriceps Mobilization Type Myofascial Release Rolling Intensity/Depth Moderate Body Position Hooklying Joint Mobilizations PF Joint patellofemoral Direction medial, inf, superior Grade III Body Position Supine PT-OP-T Assessment and Plan Start: 07/27/18 11:43 Freq: Status: Active Protocol: Document 10/31/18 16:00 RCC (Rec: 10/31/18 17:48 [facility] [email or web address]) Physical Therapy Assessment Assessment Summary Assessment Pt with improved knee flexion with gait after manual therapy . She continues to have limited ROM of the L knee and L knee weakness attributing to impaired gait and overall functional mobility. Physical Therapy Plan Frequency and Duration Frequency of Treatment 2x/Week Duration of Treatment 12 weeks Plan of Care Start Date 10/10/18 Plan of Care End Date 01/02/19 Next Visit Focus/Plan Next Note Type Treatment Note Next Visit Plan progress gait, standing balance, LE strength as tolerated.
--- NOTE | 2018-11-14 16:10 | PT.OTN ---
Current Diagnoses Multiple sclerosis (11/14/18) Unspecified osteoarthritis, unspecified site (11/14/18) Physical Therapy Treatment Note PT-OP-A Visit Information Start: 07/27/18 11:43 Freq: Status: Active Protocol: Document 11/14/18 16:10 RCC (Rec: 11/14/18 16:36 [facility] [email or web address]) Out-Patient Physical Therapy Visit Information Visit Information Visit Type Treatment Note Visit Start Time 15:20 Visit Stop Time 16:10 Total Visit Minutes 50 Visit Number 18 Number of ULTRASOUND SPECIALIST Visits 0 Evaluation Information Evaluation Date 07/25/18 Precautions Precautions fall risk/fall precautions, MS - careful not to overhead or fatigue PT-OP-B Current Condition Start: 07/27/18 11:43 Freq: Status: Active Protocol: Document 07/25/18 14:30 RCC (Rec: 07/27/18 11:58 [facility] [email or web address]) Current Condition History of Current Condition Onset Date 2016 Current Complaints L knee pain/stiffness, low back pain, impaired mobility History of Current Condition Pt is a 83 y/o female presenting to physical therapy c/o L knee pain and stiffness , low back pain, andimpaired mobility. Pt has a h/o L distal femur fracture with ORIF 2016. 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 Pt has not fallen in the past 3+ months. Radiograph of lumbar spine showed compression fx's at T10, T12, L3 and L4, as well as grade 1 spondylolisthesis @ L4-5. Prior Treatments and Tests PT in past which she was d/c for multiple falls, unsafe to attend outpatient facility. Radiograph for spine showed compression fx @ T10, T12, L3 and L4. Treatment Goals Patient/Caregiver Goals improve mobility, decrease pain, improve function Prior Functional Status Baseline Function- ADL's Modified Independent Baseline Function- Mobility Modified Independent Baseline Function- Gait short distance outdoors indep. Baseline Function- Other pt was doing her own shopping prior to L distal femur fx and ORIF 07/2017 Current Functional Impairments (Reported) Functional Limitations- ADL's some assistance with cleaning Functional Limitations- Mobility/Gait modified indep. short outdoor gait on level surfaces only Personal Factors Other Personal Factors That May Effect Multiple Sclerosis, L distal Therapy/Recovery femur fx s/p ORIF 07/2017, h/o multiple falls, multiple compression fx's PT-OP-C Subjective Start: 07/27/18 11:43 Freq: Status: Active Protocol: Document 11/14/18 16:10 RCC (Rec: 11/14/18 16:36 [facility] [email or web address]) OP-PT Subjective Patient Comments Patient Comments Pt's L knee was sore the past week, especially with attempting to ambulate with increased L foot push off. PT-OP-D Balance Start: 07/27/18 11:43 Freq: Status: Active Protocol: Document 07/25/18 14:30 RCC (Rec: 07/27/18 12:01 [facility] [email or web address]) Balance Tests Single Limb Standing Single Limb- Right unable Single Limb- Left unable PT-OP-E Functional Tests Start: 07/27/18 11:43 Freq: Status: Active Protocol: Document 09/14/18 15:15 RCC (Rec: 09/15/18 14:06 RCC [email or web address]) Functional Tests Timed Up and Go (TUG) Score 18.28 TUG Impairment Rating 80 to <100% Impaired (Score 18 -19) PT-OP-F Manual Assessment Start: 07/27/18 11:43 Freq: Status: Active Protocol: Document 10/24/18 16:50 RCC (Rec: 10/24/18 17:04 [facility] [email or web address]) Manual Assessments Joint Mobility Assessment Joint Mobility Assessment hypomobility L patellofemoral joint medial, inferior and superior glide PT-OP-G Mobility & Gait Start: 07/27/18 11:43 Freq: Status: Active Protocol: Document 10/17/18 16:00 RCC (Rec: 10/17/18 17:55 [facility] [email or web address]) OP Gait Assessment Comments Gait Comments L knee flexion during gait WNL PT-OP-K Range of Motion Start: 07/27/18 11:43 Freq: Status: Active Protocol: Document 10/10/18 14:30 RCC (Rec: 10/10/18 17:40 RCC [email or web address]) Knee Goniometric Range of Motion Knee Measured in Degrees Left Knee ROM WFL No Patient Position Supine Flexion Active (degrees) 107 Flexion Passive (degrees) 111 Extension Active (degrees) 2 Extension Passive (degrees) 1 PT-OP-L Special Tests Start: 07/27/18 11:43 Freq: Status: Active Protocol: Document 07/25/18 14:30 RCC (Rec: 07/27/18 15:47 [facility] [email or web address]) Special Tests Lumbar Spine Special Tests Straight Leg Raise Test Results positive on the L @ 45 deg PT-OP-M Strength Start: 07/27/18 11:43 Freq: Status: Active Protocol: Document 10/10/18 14:30 RCC (Rec: 10/10/18 17:40 [facility] [email or web address]) Hip Strength Hip Manual Muscle Testing Left Flexion (L2) 4 Good Knee Strength Knee Manual Muscle Testing Left Flexion (S2) 4 Good Extension (L3) 4- Good- PT-OP-Q Treatments Start: 07/27/18 11:43 Freq: Status: Active Protocol: Document 11/14/18 16:10 RCC (Rec: 11/14/18 16:36 [facility] [email or web address]) Cardio Equipment Recumbent Elliptical ([employer]) Duration (Minutes) 5 Resistance 1 Seat Position 7 Gym Equipment Therapeutic Ball knee flex/extension Exercise Details bilateral knee flexion/ extension with ball Ball Size/Color 55 cm ball Body Position Supine Reps/Duration x20 Therapeutic Exercises Sitting Exercises HS curls Side left Resistance pink latex free Reps/Minutes 1x15 Standing Exercises knee flexion Standing Exercise Name HS curls Side left Equipment Used // bars Reps/Minutes x10 heel raises Side bilateral Comments UE support on // bars Gait Training Gait Activity gait in // bars Description gait Device Used // bars Surface level Treatment Focus L knee flexion ROM, push off L , arm swing Manual Therapy Treatment Soft Tissue Mobilization scar tissue Body Location lateral L thigh Mobilization Type Other Intensity/Depth Moderate Body Position Hooklying Joint Mobilizations PF Joint patellofemoral Direction medial, inf, superior Grade III Body Position Supine PT-OP-R Modalities Start: 07/27/18 11:43 Freq: Status: Active Protocol: Document 11/14/18 16:10 RCC (Rec: 11/14/18 16:36 RCC [email or web address]) Hot Pack/Cold Pack Treatment Cold Pack Location L knee Patient Position Hooklying Treatment Duration (minutes) 10 Patient Tolerance Good Comments [email or web address] PT-OP-T Assessment and Plan Start: 07/27/18 11:43 Freq: Status: Active Protocol: Document 11/14/18 16:10 RCC (Rec: 11/14/18 16:36 [facility] [email or web address]) Physical Therapy Assessment Assessment Summary Assessment Pt able to return learning with improved knee flexion ROM during gait, allowing for less heel drag during ambulation after treatment today. Gait speed is improved when she is able to clear the L foot, but still inconsistent and significantly limited with knee ROM and strength, along with impaired balance and activity tolerance due to MS. Physical Therapy Plan Frequency and Duration Frequency of Treatment 2x/Week Duration of Treatment 12 weeks Plan of Care Start Date 10/10/18 Plan of Care End Date 01/02/19 Next Visit Focus/Plan Next Note Type Treatment Note Next Visit Plan cont. L knee ROM and strengthening, gait
--- NOTE | 2018-11-22 16:00 | PT.OTN ---
Current Diagnoses Multiple sclerosis (11/22/18) Unspecified osteoarthritis, unspecified site (11/22/18) Physical Therapy Treatment Note PT-OP-A Visit Information Start: 07/27/18 11:43 Freq: Status: Active Protocol: Document 11/22/18 16:00 RCC (Rec: 11/23/18 08:57 RCC [email or web address]) Out-Patient Physical Therapy Visit Information Visit Information Visit Type Treatment Note Visit Start Time 15:15 Visit Stop Time 16:05 Total Visit Minutes 50 Visit Number 19 Number of [employer]ATT[employer] CHIEF Visits 0 Evaluation Information Evaluation Date 07/25/18 PT-OP-B Current Condition Start: 07/27/18 11:43 Freq: Status: Active Protocol: Document 07/25/18 14:30 RCC (Rec: 07/27/18 11:58 RCC [email or web address]) Current Condition History of Current Condition Onset Date 2016 Current Complaints L knee pain/stiffness, low back pain, impaired mobility History of Current Condition Pt is a 83 y/o female presenting to physical therapy c/o L knee pain and stiffness , low back pain, andimpaired mobility. Pt has a h/o L distal femur fracture with ORIF 2016. 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 Pt has not fallen in the past 3+ months. Radiograph of lumbar spine showed compression fx's at T10, T12, L3 and L4, as well as grade 1 spondylolisthesis @ L4-5. Prior Treatments and Tests PT in past which she was d/c for multiple falls, unsafe to attend outpatient facility. Radiograph for spine showed compression fx @ T10, T12, L3 and L4. Treatment Goals Patient/Caregiver Goals improve mobility, decrease pain, improve function Prior Functional Status Baseline Function- ADL's Modified Independent Baseline Function- Mobility Modified Independent Baseline Function- Gait short distance outdoors indep. Baseline Function- Other pt was doing her own shopping prior to L distal femur fx and ORIF 07/2017 Current Functional Impairments (Reported) Functional Limitations- ADL's some assistance with cleaning Functional Limitations- Mobility/Gait modified indep. short outdoor gait on level surfaces only Personal Factors Other Personal Factors That May Effect Multiple Sclerosis, L distal Therapy/Recovery femur fx s/p ORIF 07/2017, h/o multiple falls, multiple compression fx's PT-OP-C Subjective Start: 07/27/18 11:43 Freq: Status: Active Protocol: Document 11/22/18 16:00 RCC (Rec: 11/23/18 08:57 RCC [email or web address]) OP-PT Subjective Patient Comments Patient Comments Pt felt okay after last session but feels like her OA is acting up today as well as her MS. PT-OP-D Balance Start: 07/27/18 11:43 Freq: Status: Active Protocol: Document 07/25/18 14:30 RCC (Rec: 07/27/18 12:01 RCC [email or web address]) Balance Tests Single Limb Standing Single Limb- Right unable Single Limb- Left unable PT-OP-E Functional Tests Start: 07/27/18 11:43 Freq: Status: Active Protocol: Document 09/14/18 15:15 RCC (Rec: 09/15/18 14:06 RCC [email or web address]) Functional Tests Timed Up and Go (TUG) Score 18.28 TUG Impairment Rating 80 to <100% Impaired (Score 18 -19) PT-OP-F Manual Assessment Start: 07/27/18 11:43 Freq: Status: Active Protocol: Document 10/24/18 16:50 RCC (Rec: 10/24/18 17:04 RCC [email or web address]) Manual Assessments Joint Mobility Assessment Joint Mobility Assessment hypomobility L patellofemoral joint medial, inferior and superior glide PT-OP-G Mobility & Gait Start: 07/27/18 11:43 Freq: Status: Active Protocol: Document 10/17/18 16:00 RCC (Rec: 10/17/18 17:55 [facility] [email or web address]) OP Gait Assessment Comments Gait Comments L knee flexion during gait WNL PT-OP-K Range of Motion Start: 07/27/18 11:43 Freq: Status: Active Protocol: Document 10/10/18 14:30 RCC (Rec: 10/10/18 17:40 RCC [email or web address]) Knee Goniometric Range of Motion Knee Measured in Degrees Left Knee ROM WFL No Patient Position Supine Flexion Active (degrees) 107 Flexion Passive (degrees) 111 Extension Active (degrees) 2 Extension Passive (degrees) 1 PT-OP-L Special Tests Start: 07/27/18 11:43 Freq: Status: Active Protocol: Document 07/25/18 14:30 RCC (Rec: 07/27/18 15:47 RCC [email or web address]) Special Tests Lumbar Spine Special Tests Straight Leg Raise Test Results positive on the L @ 45 deg PT-OP-M Strength Start: 07/27/18 11:43 Freq: Status: Active Protocol: Document 10/10/18 14:30 RCC (Rec: 10/10/18 17:40 RCC [email or web address]) Hip Strength Hip Manual Muscle Testing Left Flexion (L2) 4 Good Knee Strength Knee Manual Muscle Testing Left Flexion (S2) 4 Good Extension (L3) 4- Good- PT-OP-Q Treatments Start: 07/27/18 11:43 Freq: Status: Active Protocol: Document 11/22/18 16:00 RCC (Rec: 11/23/18 08:57 [facility] [email or web address]) Cardio Equipment Recumbent Elliptical ([employer]) Duration (Minutes) 8 Resistance 1 Seat Position 7 Gym Equipment Shuttle Recovery Bilateral Heel Raises Resistance 25 lbs Shuttle Recovery Platform Stable Reps/Time 15 Unilateral Squats Resistance 25 lbs Shuttle Recovery Platform Stable Reps/Time 15 Bilateral Squats Resistance 62 lbs Shuttle Recovery Platform Stable Reps/Time 15 Therapeutic Ball knee flex/extension Exercise Details bilateral knee flexion/ extension with ball Ball Size/Color 55 cm ball Body Position Supine Reps/Duration x20 Manual Therapy Treatment Soft Tissue Mobilization scar tissue Body Location lateral L thigh Mobilization Type Other Intensity/Depth Moderate Body Position Hooklying Joint Mobilizations PF Joint patellofemoral Direction medial, inf, superior Grade III Body Position Supine PT-OP-R Modalities Start: 07/27/18 11:43 Freq: Status: Active Protocol: Document 11/22/18 16:00 RCC (Rec: 11/23/18 08:57 [facility] [email or web address]) Hot Pack/Cold Pack Treatment Cold Pack Location L knee Patient Position Hooklying Treatment Duration (minutes) 10 Patient Tolerance Good Comments bolster PT-OP-T Assessment and Plan Start: 07/27/18 11:43 Freq: Status: Active Protocol: Document 11/22/18 16:00 RCC (Rec: 11/23/18 08:57 [facility] [email or web address]) Physical Therapy Assessment Assessment Summary Assessment Pt able to tolerate therapeutic exercise well today, with less pain in anterior knee. Pt continues to be limited with knee flexion AROM, but does improve after manual therapy and improved gait speed between exercises after manual therapy. Physical Therapy Plan Frequency and Duration Frequency of Treatment 2x/Week Duration of Treatment 12 weeks Plan of Care Start Date 11/21/18 Plan of Care End Date 01/02/19 Next Visit Focus/Plan Next Note Type Treatment Note Next Visit Plan progress toward L knee joint mobilizations gently to increased knee flexion, continue to advance strength and gait/balance.
--- NOTE | 2018-11-28 16:00 | PT.OTN ---
Current Diagnoses Multiple sclerosis (11/28/18) Unspecified osteoarthritis, unspecified site (11/28/18) Physical Therapy Treatment Note PT-OP-A Visit Information Start: 07/27/18 11:43 Freq: Status: Active Protocol: Document 11/28/18 16:00 RCC (Rec: 11/29/18 13:14 RCC [email or web address]) Out-Patient Physical Therapy Visit Information Visit Information Visit Type Treatment Note Visit Note G codes @ 24 Visit Start Time 15:15 Visit Stop Time 16:07 Total Visit Minutes 52 Visit Number 20 Number of ADMINISTRATIVE RESOURCES ASSOCIATE Visits 0 Evaluation Information Evaluation Date 07/25/18 PT-OP-B Current Condition Start: 07/27/18 11:43 Freq: Status: Active Protocol: Document 07/25/18 14:30 RCC (Rec: 07/27/18 11:58 [facility] [email or web address]) Current Condition History of Current Condition Onset Date 2016 Current Complaints L knee pain/stiffness, low back pain, impaired mobility History of Current Condition Pt is a 83 y/o female presenting to physical therapy c/o L knee pain and stiffness , low back pain, andimpaired mobility. Pt has a h/o L distal femur fracture with ORIF 2016. 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 Pt has not fallen in the past 3+ months. Radiograph of lumbar spine showed compression fx's at T10, T12, L3 and L4, as well as grade 1 spondylolisthesis @ L4-5. Prior Treatments and Tests PT in past which she was d/c for multiple falls, unsafe to attend outpatient facility. Radiograph for spine showed compression fx @ T10, T12, L3 and L4. Treatment Goals Patient/Caregiver Goals improve mobility, decrease pain, improve function Prior Functional Status Baseline Function- ADL's Modified Independent Baseline Function- Mobility Modified Independent Baseline Function- Gait short distance outdoors indep. Baseline Function- Other pt was doing her own shopping prior to L distal femur fx and ORIF 07/2017 Current Functional Impairments (Reported) Functional Limitations- ADL's some assistance with cleaning Functional Limitations- Mobility/Gait modified indep. short outdoor gait on level surfaces only Personal Factors Other Personal Factors That May Effect Multiple Sclerosis, L distal Therapy/Recovery femur fx s/p ORIF 07/2017, h/o multiple falls, multiple compression fx's PT-OP-C Subjective Start: 07/27/18 11:43 Freq: Status: Active Protocol: Document 11/28/18 16:00 RCC (Rec: 11/29/18 13:14 RCC [email or web address]) OP-PT Subjective Patient Comments Patient Comments Pt reports she is still feeling pain with inital sit to stand but less pain this week with ambulating. PT-OP-D Balance Start: 07/27/18 11:43 Freq: Status: Active Protocol: Document 07/25/18 14:30 RCC (Rec: 07/27/18 12:01 RCC [email or web address]) Balance Tests Single Limb Standing Single Limb- Right unable Single Limb- Left unable PT-OP-E Functional Tests Start: 07/27/18 11:43 Freq: Status: Active Protocol: Document 09/14/18 15:15 RCC (Rec: 09/15/18 14:06 RCC [email or web address]) Functional Tests Timed Up and Go (TUG) Score 18.28 TUG Impairment Rating 80 to <100% Impaired (Score 18 -19) PT-OP-F Manual Assessment Start: 07/27/18 11:43 Freq: Status: Active Protocol: Document 10/24/18 16:50 RCC (Rec: 10/24/18 17:04 RCC [email or web address]) Manual Assessments Joint Mobility Assessment Joint Mobility Assessment hypomobility L patellofemoral joint medial, inferior and superior glide PT-OP-G Mobility & Gait Start: 07/27/18 11:43 Freq: Status: Active Protocol: Document 10/17/18 16:00 RCC (Rec: 10/17/18 17:55 [facility] [email or web address]) OP Gait Assessment Comments Gait Comments L knee flexion during gait WNL PT-OP-K Range of Motion Start: 07/27/18 11:43 Freq: Status: Active Protocol: Document 11/28/18 16:00 RCC (Rec: 11/29/18 13:14 RCC [email or web address]) Knee Goniometric Range of Motion Knee ROM Limitations Comments L knee AROM 2-96 prior to interventions, flexion to 108 degrees AROM L knee after treatment PT-OP-L Special Tests Start: 07/27/18 11:43 Freq: Status: Active Protocol: Document 07/25/18 14:30 RCC (Rec: 07/27/18 15:47 RCC [email or web address]) Special Tests Lumbar Spine Special Tests Straight Leg Raise Test Results positive on the L @ 45 deg PT-OP-M Strength Start: 07/27/18 11:43 Freq: Status: Active Protocol: Document 10/10/18 14:30 RCC (Rec: 10/10/18 17:40 RCC [email or web address]) Hip Strength Hip Manual Muscle Testing Left Flexion (L2) 4 Good Knee Strength Knee Manual Muscle Testing Left Flexion (S2) 4 Good Extension (L3) 4- Good- PT-OP-Q Treatments Start: 07/27/18 11:43 Freq: Status: Active Protocol: Document 11/28/18 16:00 RCC (Rec: 11/29/18 13:14 RCC [email or web address]) Cardio Equipment Recumbent Elliptical ([email or web address]) Duration (Minutes) 8 Resistance 1 Seat Position 7 Therapeutic Exercises Supine Exercises heel slide Side left Reps/Minutes 10 Sitting Exercises HS curls Side left Resistance pink latex free Reps/Minutes 1x15 Standing Exercises knee flexion Standing Exercise Name HS curls Side left Equipment Used // bars Reps/Minutes x10 sit<->stand squats Standing Exercise Name STS with TrAb activation Side bilateral Comments chair behind pt, rail for UE Manual Therapy Treatment Soft Tissue Mobilization L quadriceps Body Location L quadriceps Mobilization Type Myofascial Release Rolling Intensity/Depth Moderate Body Position Hooklying scar tissue Body Location lateral L thigh Mobilization Type Other Intensity/Depth Moderate Body Position Hooklying Joint Mobilizations tibiofemoral Joint tibiofemoral Direction A/P tibia on femur Grade III Body Position Supine PF Joint patellofemoral Direction medial, inf, superior Grade III Body Position Supine PT-OP-R Modalities Start: 07/27/18 11:43 Freq: Status: Active Protocol: Document 11/28/18 16:00 RCC (Rec: 11/29/18 13:14 [facility] [email or web address]) Hot Pack/Cold Pack Treatment Cold Pack Location L knee Patient Position Hooklying Treatment Duration (minutes) 10 Patient Tolerance Good Comments abram PT-OP-T Assessment and Plan Start: 07/27/18 11:43 Freq: Status: Active Protocol: Document 11/28/18 16:00 RCC (Rec: 11/29/18 13:14 [facility] [email or web address]) Physical Therapy Assessment Assessment Summary Assessment Pt able to increase L knee flexion AROM from 96 degrees to 108 degrees after manual therapy and heel slides today. Pt with improved tolerance to joint mobilizations, and had no pain with grade III A/P mobilizations of the tibiofemoral joint, which appears to assist with increasing L knee ROM. Physical Therapy Plan Frequency and Duration Frequency of Treatment 2x/Week Duration of Treatment 12 weeks Plan of Care Start Date 10/10/18 Plan of Care End Date 01/02/19 Next Visit Focus/Plan Next Note Type Treatment Note Next Visit Plan assess tolerance to joint mobilizations and exercises; cont. to progress HEP for knee ROM and strength
--- NOTE | 2018-12-19 15:15 | PT.OTN ---
Current Diagnoses Multiple sclerosis (12/19/18) Unspecified osteoarthritis, unspecified site (12/19/18) Physical Therapy Treatment Note PT-OP-A Visit Information Start: 07/27/18 11:43 Freq: Status: Active Protocol: Document 12/19/18 15:15 RCC (Rec: 12/19/18 18:04 RCC [email or web address]) Out-Patient Physical Therapy Visit Information Visit Information Visit Type Treatment Note Visit Start Time 15:15 Visit Stop Time 16:00 Total Visit Minutes 45 Visit Number 21 Number of INDUSTRIAL HYGIENE TECHNICIAN Visits 0 Evaluation Information Evaluation Date 07/25/18 PT-OP-B Current Condition Start: 07/27/18 11:43 Freq: Status: Active Protocol: Document 07/25/18 14:30 RCC (Rec: 07/27/18 11:58 RCC [email or web address]) Current Condition History of Current Condition Onset Date 2016 Current Complaints L knee pain/stiffness, low back pain, impaired mobility History of Current Condition Pt is a 83 y/o female presenting to physical therapy c/o L knee pain and stiffness , low back pain, andimpaired mobility. Pt has a h/o L distal femur fracture with ORIF 2016. 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 Pt has not fallen in the past 3+ months. Radiograph of lumbar spine showed compression fx's at T10, T12, L3 and L4, as well as grade 1 spondylolisthesis @ L4-5. Prior Treatments and Tests PT in past which she was d/c for multiple falls, unsafe to attend outpatient facility. Radiograph for spine showed compression fx @ T10, T12, L3 and L4. Treatment Goals Patient/Caregiver Goals improve mobility, decrease pain, improve function Prior Functional Status Baseline Function- ADL's Modified Independent Baseline Function- Mobility Modified Independent Baseline Function- Gait short distance outdoors indep. Baseline Function- Other pt was doing her own shopping prior to L distal femur fx and ORIF 07/2017 Current Functional Impairments (Reported) Functional Limitations- ADL's some assistance with cleaning Functional Limitations- Mobility/Gait modified indep. short outdoor gait on level surfaces only Personal Factors Other Personal Factors That May Effect Multiple Sclerosis, L distal Therapy/Recovery femur fx s/p ORIF 07/2017, h/o multiple falls, multiple compression fx's PT-OP-C Subjective Start: 07/27/18 11:43 Freq: Status: Active Protocol: Document 12/19/18 15:15 RCC (Rec: 12/19/18 18:04 RCC [email or web address]) OP-PT Subjective Patient Comments Patient Comments Pt states that she is not tolerating her bike at home as well as she was two weeks ago , she was unable to attend PT the past two weeks due to various uncontrollable situations, but is motivated and glad to be back. PT-OP-D Balance Start: 07/27/18 11:43 Freq: Status: Active Protocol: Document 07/25/18 14:30 RCC (Rec: 07/27/18 12:01 RCC [email or web address]) Balance Tests Single Limb Standing Single Limb- Right unable Single Limb- Left unable PT-OP-E Functional Tests Start: 07/27/18 11:43 Freq: Status: Active Protocol: Document 09/14/18 15:15 RCC (Rec: 09/15/18 14:06 RCC [email or web address]) Functional Tests Timed Up and Go (TUG) Score 18.28 TUG Impairment Rating 80 to <100% Impaired (Score 18 -19) PT-OP-F Manual Assessment Start: 07/27/18 11:43 Freq: Status: Active Protocol: Document 10/24/18 16:50 RCC (Rec: 10/24/18 17:04 RCC [email or web address]) Manual Assessments Joint Mobility Assessment Joint Mobility Assessment hypomobility L patellofemoral joint medial, inferior and superior glide PT-OP-G Mobility & Gait Start: 07/27/18 11:43 Freq: Status: Active Protocol: Document 10/17/18 16:00 RCC (Rec: 10/17/18 17:55 RCC [email or web address]) OP Gait Assessment Comments Gait Comments L knee flexion during gait WNL PT-OP-K Range of Motion Start: 07/27/18 11:43 Freq: Status: Active Protocol: Document 12/19/18 15:15 RCC (Rec: 12/19/18 18:04 RCC [email or web address]) Knee Goniometric Range of Motion Knee ROM Limitations Comments L knee AROM flexion to 102 degrees prior to treatment, 110 degrees after manual therapy and exercise. PT-OP-L Special Tests Start: 07/27/18 11:43 Freq: Status: Active Protocol: Document 07/25/18 14:30 RCC (Rec: 07/27/18 15:47 RCC [email or web address]) Special Tests Lumbar Spine Special Tests Straight Leg Raise Test Results positive on the L @ 45 deg PT-OP-M Strength Start: 07/27/18 11:43 Freq: Status: Active Protocol: Document 10/10/18 14:30 RCC (Rec: 10/10/18 17:40 RCC [email or web address]) Hip Strength Hip Manual Muscle Testing Left Flexion (L2) 4 Good Knee Strength Knee Manual Muscle Testing Left Flexion (S2) 4 Good Extension (L3) 4- Good- PT-OP-Q Treatments Start: 07/27/18 11:43 Freq: Status: Active Protocol: Document 12/19/18 15:15 RCC (Rec: 12/19/18 18:04 RCC [email or web address]) Therapeutic Exercises Supine Exercises psoas and rectus femoris stretching Side left Comments manual for rectus; Left leg hanging off of table heel slide Side left Reps/Minutes 10 Sidelying Exercises psoas and rectus femoris stretching Side left Comments manual Manual Therapy Treatment Soft Tissue Mobilization L quadriceps Body Location L quadriceps Mobilization Type Myofascial Release Rolling Intensity/Depth Moderate Body Position Hooklying scar tissue Body Location lateral L thigh Mobilization Type Other Intensity/Depth Moderate Body Position Hooklying Joint Mobilizations tibiofemoral Joint tibiofemoral Direction A/P tibia on femur Grade III Body Position Supine PF Joint patellofemoral Direction medial, inf, superior Grade III Body Position Supine PT-OP-R Modalities Start: 07/27/18 11:43 Freq: Status: Active Protocol: Document 12/19/18 15:15 RCC (Rec: 12/19/18 18:04 RCC [email or web address]) Hot Pack/Cold Pack Treatment Cold Pack Location L knee Patient Position Hooklying Treatment Duration (minutes) 10 Patient Tolerance Good Comments abram PT-OP-T Assessment and Plan Start: 07/27/18 11:43 Freq: Status: Active Protocol: Document 12/19/18 15:15 RCC (Rec: 12/19/18 18:04 RCC [email or web address]) Physical Therapy Assessment Goals Four Impairment Gait/Timed Up and Go Short Term Goal (STG) Timed Up and Go to <30 seconds . 09/14/18: achieved STG Duration achieved [employer] Goal (LTG) Timed Up and Go to <20 seconds to demonstrate improved gait speed, and decreasing fall risk. 09/14/18: achieved LTG Duration achieved Three Impairment L knee ROM [facility] Goal (LTG) 0-120 degrees of the L knee to improve gait and functional motion. 10/10/18: some progress with extension, no significant change with flexion(2-107) LTG Duration 12 weeks Two Impairment pain in low back 7/10 Short Term Goal (STG) 5/10 pain reported in low back . 10/10/18: achieved STG Duration achieved [employer] Goal (LTG) 3/10 pain reported in low back or less to demonstrate improved thoracolumbar stability. LTG Duration 12 weeks One Impairment Lower Extremity Functional Scale (14/80) Short Term Goal (STG) Score: 20/80 10/10/18: goal achieved (23/80 ) STG Duration achieved [employer] Goal (LTG) Score: 25/80 or greater to demonstrate improvements with functional mobility. LTG Duration 12 weeks Assessment Summary Assessment Pt with improvements of L knee AROM flexion to 110 degrees with manual therapy and stretching of the rectus femoris muscle. Due to multiple complexities and limitations in pt's level of function, she is unable to perform this stretch indep. at home as of yet. Pt continues to demonstrate improvements during sessions, although slow , but expected given her multiple medical complexities. Physical Therapy Plan Frequency and Duration Frequency of Treatment 2x/Week Duration of Treatment 12 weeks Plan of Care Start Date 10/10/18 Plan of Care End Date 01/02/19 Next Visit Focus/Plan Next Note Type Progress Note Next Visit Plan reassess LEFS and ROM, advance goals as necessary
--- NOTE | 2018-12-26 15:20 | PT.OPPOC ---
Current Diagnoses Multiple sclerosis (12/26/18) Unspecified osteoarthritis, unspecified site (12/26/18) Provider Visit Care Team Role Provider Type Blayne Sims MD Attending Provider Physician Family Provider Primary Care Provider Specialty: Internal Medicine Address: [address] [place] [id number] Email: Plan Of Care PT-OP-T Assessment and Plan Start: 07/27/18 11:43 Freq: Status: Active Protocol: Document 12/26/18 15:20 RCC (Rec: 12/26/18 17:48 RCC [email or web address]) Physical Therapy Assessment Goals Four Impairment Gait/Timed Up and Go Short Term Goal (STG) Timed Up and Go to <30 seconds . 09/14/18: achieved STG Duration achieved Manufacturing Finance Manager Goal (LTG) Timed Up and Go to <20 seconds to demonstrate improved gait speed, and decreasing fall risk. 09/14/18: achieved LTG Duration achieved Three Impairment L knee ROM Halfway Goal (LTG) 0-120 degrees of the L knee to improve gait and functional motion. 12/26/18: some progress with extension and flexion (2-111 AROM, 0-117 PROM) LTG Duration 8 weeks Two Impairment pain in low back 7/10 Short Term Goal (STG) 5/10 pain reported in low back . 10/10/18: achieved STG Duration achieved Halfway Goal (LTG) 3/10 pain reported in low back or less to demonstrate improved thoracolumbar stability. 12/26/18: pain rated 2/10 or less in low back with all normal activities LTG Duration achieved One Impairment Lower Extremity Functional Scale (14/80) Short Term Goal (STG) Score: 20/80 10/10/18: goal achieved (23/80 ) STG Duration achieved Halfway Goal (LTG) Score: 25/80 or greater to demonstrate improvements with functional mobility. 12/26/18: 35/80. LTG Duration achieved Assessment Summary Assessment Pt with improvements in Lower Extremity Functional Scale to 35/80, which demonstrates improvements in her overall functional activity tolerance with various activities such as standing, walking, and daily chores. Her pain has decreased in both the low back and L knee to 2/10 or less, with great improvements in low back pain (occurs rarely now) . Pt's L knee ROM is improving , slowly, but is still progressing. Pt is highly motivated to continue to improve, and would greatly benefit from continued skilled physical therapy to continue to progress her L knee ROM to improve her tolerance with transitional movements (sit<-> stand), as well as continue to advance LE strengthening, balance, and gait to help decrease risk for falls and improve safety with overall daily function/activities. Physical Therapy Plan Frequency and Duration Frequency of Treatment 2x/Week Duration of Treatment 8 weeks Plan of Care Start Date 12/26/18 Plan of Care End Date 02/20/19 Therapeutic Interventions Therapeutic Interventions Aquatic Therapy Balance Training Gait Training Home Exercise Program Joint Mobilizations Manual Therapy Neuromuscular Re-education Patient/Caregiver Education Self-Care/Home Management Soft Tissue Mobilization Taping Therapeutic Activities Therapeutic Exercises Modalities Cold Pack/Ice Massage Electric Stimulation Ultrasound Next Visit Focus/Plan Next Note Type Treatment Note Next Visit Plan continue joint mobilizations and manual therapy to progress L knee ROM, LE strengthening as tolerated; standing balance training. Plan of Care Dates Plan of Care Start Date 12/26/18 Plan of Care End Date 02/20/19 Please Sign and Return: I have reviewed this Plan of Care and certify that the skilled therapy services above are required to meet the patient?s needs. Physician Signature Date Printed Name and Credentials Clinical Instructor Signature Printed Name and Credentials
--- NOTE | 2018-12-26 15:20 | PT.OTN ---
Current Diagnoses Multiple sclerosis (12/26/18) Unspecified osteoarthritis, unspecified site (12/26/18) Physical Therapy Treatment Note PT-OP-A Visit Information Start: 07/27/18 11:43 Freq: Status: Active Protocol: Document 12/26/18 15:20 [facility] (Rec: 12/26/18 17:48 [facility] [email or web address]) Out-Patient Physical Therapy Visit Information Visit Information Visit Type Treatment Note Visit Start Time 15:20 Visit Stop Time 16:00 Total Visit Minutes 40 Visit Number 22 Number of UPHOLSTERER HELPER Visits 0 Evaluation Information Evaluation Date 07/25/18 Precautions Precautions fall risk/fall precautions, MS - careful not to overheat or fatigue PT-OP-B Current Condition Start: 07/27/18 11:43 Freq: Status: Active Protocol: Document 07/25/18 14:30 [facility] (Rec: 07/27/18 11:58 [facility] [email or web address]) Current Condition History of Current Condition Onset Date 2016 Current Complaints L knee pain/stiffness, low back pain, impaired mobility History of Current Condition Pt is a 83 y/o female presenting to physical therapy c/o L knee pain and stiffness , low back pain, andimpaired mobility. Pt has a h/o L distal femur fracture with ORIF 2016. 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 Pt has not fallen in the past 3+ months. Radiograph of lumbar spine showed compression fx's at T10, T12, L3 and L4, as well as grade 1 spondylolisthesis @ L4-5. Prior Treatments and Tests PT in past which she was d/c for multiple falls, unsafe to attend outpatient facility. Radiograph for spine showed compression fx @ T10, T12, L3 and L4. Treatment Goals Patient/Caregiver Goals improve mobility, decrease pain, improve function Prior Functional Status Baseline Function- ADL's Modified Independent Baseline Function- Mobility Modified Independent Baseline Function- Gait short distance outdoors indep. Baseline Function- Other pt was doing her own shopping prior to L distal femur fx and ORIF 07/2017 Current Functional Impairments (Reported) Functional Limitations- ADL's some assistance with cleaning Functional Limitations- Mobility/Gait modified indep. short outdoor gait on level surfaces only Personal Factors Other Personal Factors That May Effect Multiple Sclerosis, L distal Therapy/Recovery femur fx s/p ORIF 07/2017, h/o multiple falls, multiple compression fx's PT-OP-C Subjective Start: 07/27/18 11:43 Freq: Status: Active Protocol: Document 12/26/18 15:20 [facility] (Rec: 12/26/18 17:48 [facility] [email or web address]) OP-PT Subjective Patient Comments Patient Comments Pt notes improvements over the past two weeks with her ability to move in general, but still with difficulty with standing balance initially on standing, and is still walking slower than her normal . Her back is much better, but still has issues with prolonged standing and the knee is still very stiff. Pain in low back and L knee rated 2/10 or less. Patient Reported Progress Improving Patient Questionnaires Lower Extremity Functional Scale LEFS Score 35 LEFS Impairment 40 to 59% Impaired (Score 32- 47) PT-OP-D Balance Start: 07/27/18 11:43 Freq: Status: Active Protocol: Document 12/26/18 15:20 [facility] (Rec: 12/26/18 17:48 [facility] [email or web address]) Balance Tests Single Limb Standing Single Limb- Right unable Single Limb- Left unable PT-OP-E Functional Tests Start: 07/27/18 11:43 Freq: Status: Active Protocol: Document 09/14/18 15:15 [facility] (Rec: 09/15/18 14:06 [facility] [email or web address]) Functional Tests Timed Up and Go (TUG) Score 18.28 TUG Impairment Rating 80 to <100% Impaired (Score 18 -19) PT-OP-F Manual Assessment Start: 07/27/18 11:43 Freq: Status: Active Protocol: Document 10/24/18 16:50 [facility] (Rec: 10/24/18 17:04 [facility] [email or web address]) Manual Assessments Joint Mobility Assessment Joint Mobility Assessment hypomobility L patellofemoral joint medial, inferior and superior glide PT-OP-G Mobility & Gait Start: 07/27/18 11:43 Freq: Status: Active Protocol: Document 12/26/18 15:20 [facility] (Rec: 12/26/18 17:48 [facility] [email or web address]) OP Gait Assessment Comments Gait Comments decreased step length on the R , push off on the L during ambulation. PT-OP-K Range of Motion Start: 07/27/18 11:43 Freq: Status: Active Protocol: Document 12/26/18 15:20 [facility] (Rec: 12/26/18 17:48 [facility] [email or web address]) Knee Goniometric Range of Motion Knee Measured in Degrees Left Knee ROM WFL No Patient Position Supine Flexion Active (degrees) 111 Flexion Passive (degrees) 117 Extension Active (degrees) 2 Extension Passive (degrees) 0 PT-OP-L Special Tests Start: 07/27/18 11:43 Freq: Status: Active Protocol: Document 07/25/18 14:30 [facility] (Rec: 07/27/18 15:47 [facility] [email or web address]) Special Tests Lumbar Spine Special Tests Straight Leg Raise Test Results positive on the L @ 45 deg PT-OP-M Strength Start: 07/27/18 11:43 Freq: Status: Active Protocol: Document 10/10/18 14:30 [facility] (Rec: 10/10/18 17:40 [facility] [email or web address]) Hip Strength Hip Manual Muscle Testing Left Flexion (L2) 4 Good Knee Strength Knee Manual Muscle Testing Left Flexion (S2) 4 Good Extension (L3) 4- Good- PT-OP-Q Treatments Start: 07/27/18 11:43 Freq: Status: Active Protocol: Document 12/26/18 15:20 [facility] (Rec: 12/26/18 17:48 [facility] [email or web address]) Cardio Equipment Recumbent Elliptical (TriplePulse) Duration (Minutes) 8 Resistance 1 Seat Position 7 Therapeutic Exercises Supine Exercises psoas and rectus femoris stretching Side left Comments manual for rectus; Left leg hanging off of table heel slide Side left Reps/Minutes 10 Manual Therapy Treatment Soft Tissue Mobilization L quadriceps Body Location L quadriceps Mobilization Type Myofascial Release Rolling Intensity/Depth Moderate Body Position Hooklying Joint Mobilizations tibiofemoral Joint tibiofemoral Direction A/P tibia on femur Grade IV Body Position Supine PF Joint patellofemoral Direction medial, inf, superior Grade IV Body Position Supine Other Other Manual Treatments L knee ROM testing PT-OP-R Modalities Start: 07/27/18 11:43 Freq: Status: Active Protocol: Document 12/19/18 15:15 [facility] (Rec: 12/19/18 18:04 [facility] [email or web address]) Hot Pack/Cold Pack Treatment Cold Pack Location L knee Patient Position Hooklying Treatment Duration (minutes) 10 Patient Tolerance Good Comments bolster PT-OP-T Assessment and Plan Start: 07/27/18 11:43 Freq: Status: Active Protocol: Document 12/26/18 15:20 [facility] (Rec: 12/26/18 17:48 [facility] [email or web address]) Physical Therapy Assessment Goals Four Impairment Gait/Timed Up and Go Short Term Goal (STG) Timed Up and Go to <30 seconds . 09/14/18: achieved STG Duration achieved Statistics Teacher Goal (LTG) Timed Up and Go to <20 seconds to demonstrate improved gait speed, and decreasing fall risk. 09/14/18: achieved LTG Duration achieved Three Impairment L knee ROM Statistics Teacher Goal (LTG) 0-120 degrees of the L knee to improve gait and functional motion. 12/26/18: some progress with extension and flexion (2-111 AROM, 0-117 PROM) LTG Duration 8 weeks Two Impairment pain in low back 7/10 Short Term Goal (STG) 5/10 pain reported in low back . 10/10/18: achieved STG Duration achieved Statistics Teacher Goal (LTG) 3/10 pain reported in low back or less to demonstrate improved thoracolumbar stability. 12/26/18: pain rated 2/10 or less in low back with all normal activities LTG Duration achieved One Impairment Lower Extremity Functional Scale (14/80) Short Term Goal (STG) Score: 20/80 10/10/18: goal achieved (23/80 ) STG Duration achieved Halfway Goal (LTG) Score: 25/80 or greater to demonstrate improvements with functional mobility. 12/26/18: 35/80. LTG Duration achieved Assessment Summary Assessment Pt with improvements in Lower Extremity Functional Scale to 35/80, which demonstrates improvements in her overall functional activity tolerance with various activities such as standing, walking, and daily chores. Her pain has decreased in both the low back and L knee to 2/10 or less, with great improvements in low back pain (occurs rarely now) . Pt's L knee ROM is improving , slowly, but is still progressing. Pt is highly motivated to continue to improve, and would greatly benefit from continued skilled physical therapy to continue to progress her L knee ROM to improve her tolerance with transitional movements (sit<-> stand), as well as continue to advance LE strengthening, balance, and gait to help decrease risk for falls and improve safety with overall daily function/activities. Physical Therapy Plan Frequency and Duration Frequency of Treatment 2x/Week Duration of Treatment 8 weeks Plan of Care Start Date 12/26/18 Plan of Care End Date 02/20/19 Therapeutic Interventions Therapeutic Interventions Aquatic Therapy Balance Training Gait Training Home Exercise Program Joint Mobilizations Manual Therapy Neuromuscular Re-education Patient/Caregiver Education Self-Care/Home Management Soft Tissue Mobilization Taping Therapeutic Activities Therapeutic Exercises Modalities Cold Pack/Ice Massage Electric Stimulation Ultrasound Next Visit Focus/Plan Next Note Type Treatment Note Next Visit Plan continue joint mobilizations and manual therapy to progress L knee ROM, LE strengthening as tolerated; standing balance training.
--- NOTE | 2019-01-09 15:25 | PT.OTN ---
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 Pt has a h/o L distal femur fracture with ORIF 2016. 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 Pt has not fallen in the past 3+ months. Radiograph of lumbar spine showed compression fx's at T10, T12, L3 and L4, as well as grade 1 spondylolisthesis @ L4-5. Prior Treatments and Tests PT in past which she was d/c for multiple falls, unsafe to attend outpatient facility. Radiograph for spine showed compression fx @ T10, T12, L3 and L4. Treatment Goals Patient/Caregiver Goals improve mobility, decrease pain, improve function Prior Functional Status Baseline Function- ADL's Modified Independent Baseline Function- Mobility Modified Independent Baseline Function- Gait short distance outdoors indep. Baseline Function- Other pt was doing her own shopping prior to L distal femur fx and ORIF 07/2017 Current Functional Impairments (Reported) Functional Limitations- ADL's some assistance with cleaning Functional Limitations- Mobility/Gait modified indep. short outdoor gait on level surfaces only Personal Factors Other Personal Factors That May Effect Multiple Sclerosis, L distal Therapy/Recovery femur fx s/p ORIF 07/2017, h/o multiple falls, multiple compression fx's PT-OP-C Subjective Start: 07/27/18 11:43 Freq: Status: Active Protocol: Document 01/09/19 15:25 [facility] (Rec: 01/10/19 10:09 [facility] [email or web address]) OP-PT Subjective Patient Comments Patient Comments Pt was able to ride her home bike for 30 min yesterday, but admits to increased L knee pain today. PT-OP-D Balance Start: 07/27/18 11:43 Freq: Status: Active Protocol: Document 12/26/18 15:20 [facility] (Rec: 12/26/18 17:48 [facility] [email or web address]) Balance Tests Single Limb Standing Single Limb- Right unable Single Limb- Left unable PT-OP-E Functional Tests Start: 07/27/18 11:43 Freq: Status: Active Protocol: Document 09/14/18 15:15 [facility] (Rec: 09/15/18 14:06 [facility] [email or web address]) Functional Tests Timed Up and Go (TUG) Score 18.28 TUG Impairment Rating 80 to <100% Impaired (Score 18 -19) PT-OP-F Manual Assessment Start: 07/27/18 11:43 Freq: Status: Active Protocol: Document 10/24/18 16:50 [facility] (Rec: 10/24/18 17:04 [facility] [email or web address]) Manual Assessments Joint Mobility Assessment Joint Mobility Assessment hypomobility L patellofemoral joint medial, inferior and superior glide PT-OP-G Mobility & Gait Start: 07/27/18 11:43 Freq: Status: Active Protocol: Document 12/26/18 15:20 [facility] (Rec: 12/26/18 17:48 [facility] [email or web address]) OP Gait Assessment Comments Gait Comments decreased step length on the R , push off on the L during ambulation. PT-OP-K Range of Motion Start: 07/27/18 11:43 Freq: Status: Active Protocol: Document 01/09/19 15:25 [facility] (Rec: 01/10/19 10:09 [facility] [email or web address]) Knee Goniometric Range of Motion Knee Measured in Degrees Left Patient Position Supine Flexion Active (degrees) 101 Knee ROM Limitations Comments L knee AROM- 108 after manual therapy PT-OP-L Special Tests Start: 07/27/18 11:43 Freq: Status: Active Protocol: Document 07/25/18 14:30 [facility] (Rec: 07/27/18 15:47 [facility] [email or web address]) Special Tests Lumbar Spine Special Tests Straight Leg Raise Test Results positive on the L @ 45 deg PT-OP-M Strength Start: 07/27/18 11:43 Freq: Status: Active Protocol: Document 10/10/18 14:30 [facility] (Rec: 10/10/18 17:40 [facility] [email or web address]) Hip Strength Hip Manual Muscle Testing Left Flexion (L2) 4 Good Knee Strength Knee Manual Muscle Testing Left Flexion (S2) 4 Good Extension (L3) 4- Good- PT-OP-Q Treatments Start: 07/27/18 11:43 Freq: Status: Active Protocol: Document 01/09/19 15:25 [facility] (Rec: 01/10/19 10:09 [facility] [email or web address]) Therapeutic Exercises Supine Exercises heel slide Side left Reps/Minutes 10 Manual Therapy Treatment Soft Tissue Mobilization L quadriceps Body Location L quadriceps Mobilization Type Myofascial Release Rolling Intensity/Depth Moderate Body Position Hooklying scar tissue Body Location lateral L thigh Mobilization Type Other Intensity/Depth Moderate Body Position Hooklying Joint Mobilizations tibiofemoral Joint tibiofemoral Direction A/P tibia on femur Grade IV Body Position Supine PF Joint patellofemoral Direction medial, inf, superior Grade IV Body Position Supine PT-OP-R Modalities Start: 07/27/18 11:43 Freq: Status: Active Protocol: Document 01/09/19 15:25 [facility] (Rec: 01/10/19 10:09 [facility] [email or web address]) Hot Pack/Cold Pack Treatment Cold Pack Location L knee Patient Position Hooklying Treatment Duration (minutes) 10 Patient Tolerance Good Comments bolster PT-OP-T Assessment and Plan Start: 07/27/18 11:43 Freq: Status: Active Protocol: Document 01/09/19 15:25 [facility] (Rec: 01/10/19 10:09 [facility] [email or web address]) Physical Therapy Assessment Assessment Summary Assessment Pt with less L knee flexion today, likely due to pain and muscle tension in quadriceps s /p 30 min on seated bike at home. Pt was able to improve L knee AROM 7 degrees after manual therapy and maintained this ROM with heels slides. Physical Therapy Plan Frequency and Duration Frequency of Treatment 2x/Week Duration of Treatment 8 weeks Plan of Care Start Date 12/26/18 Plan of Care End Date 02/20/19 Next Visit Focus/Plan Next Note Type Treatment Note Next Visit Plan L knee joint mobs, balance and gait, LE strengthening
--- NOTE | 2019-01-11 15:30 | PT.OTN ---
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 Pt has a h/o L distal femur fracture with ORIF 2016. 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 Pt has not fallen in the past 3+ months. Radiograph of lumbar spine showed compression fx's at T10, T12, L3 and L4, as well as grade 1 spondylolisthesis @ L4-5. Prior Treatments and Tests PT in past which she was d/c for multiple falls, unsafe to attend outpatient facility. Radiograph for spine showed compression fx @ T10, T12, L3 and L4. Treatment Goals Patient/Caregiver Goals improve mobility, decrease pain, improve function Prior Functional Status Baseline Function- ADL's Modified Independent Baseline Function- Mobility Modified Independent Baseline Function- Gait short distance outdoors indep. Baseline Function- Other pt was doing her own shopping prior to L distal femur fx and ORIF 07/2017 Current Functional Impairments (Reported) Functional Limitations- ADL's some assistance with cleaning Functional Limitations- Mobility/Gait modified indep. short outdoor gait on level surfaces only Personal Factors Other Personal Factors That May Effect Multiple Sclerosis, L distal Therapy/Recovery femur fx s/p ORIF 07/2017, h/o multiple falls, multiple compression fx's PT-OP-C Subjective Start: 07/27/18 11:43 Freq: Status: Active Protocol: Document 01/11/19 15:30 [facility] (Rec: 01/11/19 16:17 [facility] [email or web address]) OP-PT Subjective Patient Comments Patient Comments Pt reports she is doing poorly today, stating that arthritis all over is affecting her including her R knee and hands . PT-OP-D Balance Start: 07/27/18 11:43 Freq: Status: Active Protocol: Document 12/26/18 15:20 [facility] (Rec: 12/26/18 17:48 [facility] [email or web address]) Balance Tests Single Limb Standing Single Limb- Right unable Single Limb- Left unable PT-OP-E Functional Tests Start: 07/27/18 11:43 Freq: Status: Active Protocol: Document 09/14/18 15:15 [facility] (Rec: 09/15/18 14:06 [facility] [email or web address]) Functional Tests Timed Up and Go (TUG) Score 18.28 TUG Impairment Rating 80 to <100% Impaired (Score 18 -19) PT-OP-F Manual Assessment Start: 07/27/18 11:43 Freq: Status: Active Protocol: Document 10/24/18 16:50 [facility] (Rec: 10/24/18 17:04 [facility] [email or web address]) Manual Assessments Joint Mobility Assessment Joint Mobility Assessment hypomobility L patellofemoral joint medial, inferior and superior glide PT-OP-G Mobility & Gait Start: 07/27/18 11:43 Freq: Status: Active Protocol: Document 12/26/18 15:20 [facility] (Rec: 12/26/18 17:48 [facility] [email or web address]) OP Gait Assessment Comments Gait Comments decreased step length on the R , push off on the L during ambulation. PT-OP-K Range of Motion Start: 07/27/18 11:43 Freq: Status: Active Protocol: Document 01/11/19 15:30 [facility] (Rec: 01/11/19 16:17 [facility] [email or web address]) Knee Goniometric Range of Motion Knee Measured in Degrees Left Patient Position Supine Flexion Active (degrees) 101 PT-OP-L Special Tests Start: 07/27/18 11:43 Freq: Status: Active Protocol: Document 07/25/18 14:30 [facility] (Rec: 07/27/18 15:47 [facility] [email or web address]) Special Tests Lumbar Spine Special Tests Straight Leg Raise Test Results positive on the L @ 45 deg PT-OP-M Strength Start: 07/27/18 11:43 Freq: Status: Active Protocol: Document 10/10/18 14:30 [facility] (Rec: 10/10/18 17:40 [facility] [email or web address]) Hip Strength Hip Manual Muscle Testing Left Flexion (L2) 4 Good Knee Strength Knee Manual Muscle Testing Left Flexion (S2) 4 Good Extension (L3) 4- Good- PT-OP-Q Treatments Start: 07/27/18 11:43 Freq: Status: Active Protocol: Document 01/11/19 15:30 [facility] (Rec: 01/11/19 16:17 [facility] [email or web address]) Gym Equipment Shuttle Recovery Unilateral Squats Resistance 25 lbs Shuttle Recovery Platform Stable Reps/Time 20 Bilateral Squats Resistance 50 lbs Shuttle Recovery Platform Stable Reps/Time 20 Therapeutic Exercises Supine Exercises psoas and rectus femoris stretching Side left Comments manual for rectus; Left leg hanging off of table heel slide Side left Reps/Minutes 10 Manual Therapy Treatment Soft Tissue Mobilization L quadriceps Body Location L quadriceps Mobilization Type Myofascial Release Rolling Intensity/Depth Moderate Body Position Hooklying Comments hands and rolling stick scar tissue Body Location lateral L thigh Mobilization Type Other Intensity/Depth Moderate Body Position Hooklying Joint Mobilizations tibiofemoral Joint tibiofemoral Direction A/P tibia on femur Grade IV Body Position Supine PF Joint patellofemoral Direction medial, inf, superior Grade IV Body Position Supine PT-OP-R Modalities Start: 07/27/18 11:43 Freq: Status: Active Protocol: Document 01/09/19 15:25 [facility] (Rec: 01/10/19 10:09 [facility] [email or web address]) Hot Pack/Cold Pack Treatment Cold Pack Location L knee Patient Position Hooklying Treatment Duration (minutes) 10 Patient Tolerance Good Comments [email or web address] PT-OP-T Assessment and Plan Start: 07/27/18 11:43 Freq: Status: Active Protocol: Document 01/11/19 15:30 [facility] (Rec: 01/11/19 16:17 [facility] [email or web address]) Physical Therapy Assessment Assessment Summary Assessment Pt with increased soft tissue restriction in scar tissue and L quadriceps today. Pt tolerated leg press with limited ROM but improved with ease of motion after the first few repetitions. Encouraged pt to soft tissue management with her own rolling stick at home, due to inability to effectively stretch her quadriceps indep. at home. Physical Therapy Plan Frequency and Duration Frequency of Treatment 2x/Week Duration of Treatment 8 weeks Plan of Care Start Date 12/26/18 Plan of Care End Date 02/20/19 Next Visit Focus/Plan Next Note Type Treatment Note Next Visit Plan cont. joint mobilizations for L knee, advance ROM of L knee and overall stability/strength as tolerated.
--- NOTE | 2019-01-16 15:30 | PT.OTN ---
Current Diagnoses Multiple sclerosis (01/16/19) Unspecified osteoarthritis, unspecified site (01/16/19) Physical Therapy Treatment Note PT-OP-A Visit Information Start: 07/27/18 11:43 Freq: Status: Active Protocol: Document 01/16/19 15:30 RCC (Rec: 01/16/19 17:56 [facility] [email or web address]) Out-Patient Physical Therapy Visit Information Visit Information Visit Type Treatment Note Visit Start Time 15:30 Visit Stop Time 16:00 Total Visit Minutes 30 Visit Number 25 Number of OPHTHALMOLOGIST Visits 0 Evaluation Information Evaluation Date 07/25/18 PT-OP-B Current Condition Start: 07/27/18 11:43 Freq: Status: Active Protocol: Document 07/25/18 14:30 RCC (Rec: 07/27/18 11:58 [facility] [email or web address]) Current Condition History of Current Condition Onset Date 2016 Current Complaints L knee pain/stiffness, low back pain, impaired mobility History of Current Condition Pt is a 83 y/o female presenting to physical therapy c/o L knee pain and stiffness , low back pain, andimpaired mobility. Pt has a h/o L distal femur fracture with ORIF 2016. 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 Pt has not fallen in the past 3+ months. Radiograph of lumbar spine showed compression fx's at T10, T12, L3 and L4, as well as grade 1 spondylolisthesis @ L4-5. Prior Treatments and Tests PT in past which she was d/c for multiple falls, unsafe to attend outpatient facility. Radiograph for spine showed compression fx @ T10, T12, L3 and L4. Treatment Goals Patient/Caregiver Goals improve mobility, decrease pain, improve function Prior Functional Status Baseline Function- ADL's Modified Independent Baseline Function- Mobility Modified Independent Baseline Function- Gait short distance outdoors indep. Baseline Function- Other pt was doing her own shopping prior to L distal femur fx and ORIF 07/2017 Current Functional Impairments (Reported) Functional Limitations- ADL's some assistance with cleaning Functional Limitations- Mobility/Gait modified indep. short outdoor gait on level surfaces only Personal Factors Other Personal Factors That May Effect Multiple Sclerosis, L distal Therapy/Recovery femur fx s/p ORIF 07/2017, h/o multiple falls, multiple compression fx's PT-OP-C Subjective Start: 07/27/18 11:43 Freq: Status: Active Protocol: Document 01/16/19 15:30 RCC (Rec: 01/16/19 17:56 RCC [email or web address]) OP-PT Subjective Patient Comments Patient Comments Pt had no increased pain from treatments last week but admits she has pain all over again due to arthritis. PT-OP-D Balance Start: 07/27/18 11:43 Freq: Status: Active Protocol: Document 12/26/18 15:20 RCC (Rec: 12/26/18 17:48 RCC [email or web address]) Balance Tests Single Limb Standing Single Limb- Right unable Single Limb- Left unable PT-OP-E Functional Tests Start: 07/27/18 11:43 Freq: Status: Active Protocol: Document 09/14/18 15:15 RCC (Rec: 09/15/18 14:06 RCC [email or web address]) Functional Tests Timed Up and Go (TUG) Score 18.28 TUG Impairment Rating 80 to <100% Impaired (Score 18 -19) PT-OP-F Manual Assessment Start: 07/27/18 11:43 Freq: Status: Active Protocol: Document 10/24/18 16:50 RCC (Rec: 10/24/18 17:04 RCC [email or web address]) Manual Assessments Joint Mobility Assessment Joint Mobility Assessment hypomobility L patellofemoral joint medial, inferior and superior glide PT-OP-G Mobility & Gait Start: 07/27/18 11:43 Freq: Status: Active Protocol: Document 12/26/18 15:20 RCC (Rec: 12/26/18 17:48 RCC [email or web address]) OP Gait Assessment Comments Gait Comments decreased step length on the R , push off on the L during ambulation. PT-OP-K Range of Motion Start: 07/27/18 11:43 Freq: Status: Active Protocol: Document 01/16/19 15:30 RCC (Rec: 01/16/19 17:56 RCC [email or web address]) Knee Goniometric Range of Motion Knee Measured in Degrees Left Flexion Active (degrees) 101 Knee ROM Limitations Comments L knee AROM- 109 after manual therapy PT-OP-L Special Tests Start: 07/27/18 11:43 Freq: Status: Active Protocol: Document 07/25/18 14:30 RCC (Rec: 07/27/18 15:47 RCC [email or web address]) Special Tests Lumbar Spine Special Tests Straight Leg Raise Test Results positive on the L @ 45 deg PT-OP-M Strength Start: 07/27/18 11:43 Freq: Status: Active Protocol: Document 10/10/18 14:30 RCC (Rec: 10/10/18 17:40 RCC [email or web address]) Hip Strength Hip Manual Muscle Testing Left Flexion (L2) 4 Good Knee Strength Knee Manual Muscle Testing Left Flexion (S2) 4 Good Extension (L3) 4- Good- PT-OP-Q Treatments Start: 07/27/18 11:43 Freq: Status: Active Protocol: Document 01/16/19 15:30 RCC (Rec: 01/16/19 17:56 RCC [email or web address]) Gym Equipment Therapeutic Ball knee flex/extension Exercise Details bilateral knee flexion/ extension with ball Ball Size/Color 55 cm ball Body Position Supine Reps/Duration x15 Therapeutic Exercises Supine Exercises heel slide Side left Reps/Minutes 10 Manual Therapy Treatment Soft Tissue Mobilization L quadriceps Body Location L quadriceps Mobilization Type Myofascial Release Rolling Intensity/Depth Moderate Body Position Hooklying Comments hands scar tissue Body Location lateral L thigh Mobilization Type Other Intensity/Depth Moderate Body Position Hooklying Joint Mobilizations tibiofemoral Joint tibiofemoral Direction A/P tibia on femur Grade IV Body Position Supine PF Joint patellofemoral Direction medial, inf, superior Grade IV Body Position Supine PT-OP-R Modalities Start: 07/27/18 11:43 Freq: Status: Active Protocol: Document 01/09/19 15:25 RCC (Rec: 01/10/19 10:09 [facility] [email or web address]) Hot Pack/Cold Pack Treatment Cold Pack Location L knee Patient Position Hooklying Treatment Duration (minutes) 10 Patient Tolerance Good Comments bolster PT-OP-T Assessment and Plan Start: 07/27/18 11:43 Freq: Status: Active Protocol: Document 01/16/19 15:30 RCC (Rec: 01/16/19 17:56 RCC [email or web address]) Physical Therapy Assessment Assessment Summary Assessment Pt has been able to maintain 101 degrees of ROM over the past week (L knee), and continues to see improvements during sessions after manual therapy and exercise. Encouraged pt to continue to perform HEP with the goal of emphasizing safety and progressing L knee AROM. Also discussed with pt the importance of being on time for sessions and she verbalized understanding. Physical Therapy Plan Frequency and Duration Frequency of Treatment 2x/Week Duration of Treatment 8 weeks Plan of Care Start Date 12/26/18 Plan of Care End Date 02/20/19 Next Visit Focus/Plan Next Note Type Treatment Note Next Visit Plan cont. to progress L knee ROM with manual therapy and strengthening, gait training and balance training.
--- NOTE | 2019-01-18 15:25 | PT.OTN ---
Current Diagnoses Multiple sclerosis (01/18/19) Unspecified osteoarthritis, unspecified site (01/18/19) Physical Therapy Treatment Note PT-OP-A Visit Information Start: 07/27/18 11:43 Freq: Status: Active Protocol: Document 01/18/19 15:25 RCC (Rec: 01/20/19 12:37 RCC [email or web address]) Out-Patient Physical Therapy Visit Information Visit Information Visit Type Treatment Note Visit Start Time 15:25 Visit Stop Time 16:05 Total Visit Minutes 40 Visit Number 26 Number of SPECIAL EDUCATION ASSISTANT Visits 0 Evaluation Information Evaluation Date 07/25/18 Precautions Precautions fall risk/fall precautions, MS - careful not to overheat or fatigue PT-OP-B Current Condition Start: 07/27/18 11:43 Freq: Status: Active Protocol: Document 07/25/18 14:30 RCC (Rec: 07/27/18 11:58 RCC [email or web address]) Current Condition History of Current Condition Onset Date 2016 Current Complaints L knee pain/stiffness, low back pain, impaired mobility History of Current Condition Pt is a 83 y/o female presenting to physical therapy c/o L knee pain and stiffness , low back pain, andimpaired mobility. Pt has a h/o L distal femur fracture with ORIF 2016. 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 Pt has not fallen in the past 3+ months. Radiograph of lumbar spine showed compression fx's at T10, T12, L3 and L4, as well as grade 1 spondylolisthesis @ L4-5. Prior Treatments and Tests PT in past which she was d/c for multiple falls, unsafe to attend outpatient facility. Radiograph for spine showed compression fx @ T10, T12, L3 and L4. Treatment Goals Patient/Caregiver Goals improve mobility, decrease pain, improve function Prior Functional Status Baseline Function- ADL's Modified Independent Baseline Function- Mobility Modified Independent Baseline Function- Gait short distance outdoors indep. Baseline Function- Other pt was doing her own shopping prior to L distal femur fx and ORIF 07/2017 Current Functional Impairments (Reported) Functional Limitations- ADL's some assistance with cleaning Functional Limitations- Mobility/Gait modified indep. short outdoor gait on level surfaces only Personal Factors Other Personal Factors That May Effect Multiple Sclerosis, L distal Therapy/Recovery femur fx s/p ORIF 07/2017, h/o multiple falls, multiple compression fx's PT-OP-C Subjective Start: 07/27/18 11:43 Freq: Status: Active Protocol: Document 01/18/19 15:25 RCC (Rec: 01/20/19 12:37 RCC [email or web address]) OP-PT Subjective Patient Comments Patient Comments Pt continues to have arthritic pain all over today. She notes that her L knee feels slightly more loose today. PT-OP-D Balance Start: 07/27/18 11:43 Freq: Status: Active Protocol: Document 12/26/18 15:20 RCC (Rec: 12/26/18 17:48 RCC [email or web address]) Balance Tests Single Limb Standing Single Limb- Right unable Single Limb- Left unable PT-OP-E Functional Tests Start: 07/27/18 11:43 Freq: Status: Active Protocol: Document 09/14/18 15:15 RCC (Rec: 09/15/18 14:06 RCC [email or web address]) Functional Tests Timed Up and Go (TUG) Score 18.28 TUG Impairment Rating 80 to <100% Impaired (Score 18 -19) PT-OP-F Manual Assessment Start: 07/27/18 11:43 Freq: Status: Active Protocol: Document 10/24/18 16:50 RCC (Rec: 10/24/18 17:04 RCC [email or web address]) Manual Assessments Joint Mobility Assessment Joint Mobility Assessment hypomobility L patellofemoral joint medial, inferior and superior glide PT-OP-G Mobility & Gait Start: 07/27/18 11:43 Freq: Status: Active Protocol: Document 12/26/18 15:20 RCC (Rec: 12/26/18 17:48 RCC [email or web address]) OP Gait Assessment Comments Gait Comments decreased step length on the R , push off on the L during ambulation. PT-OP-K Range of Motion Start: 07/27/18 11:43 Freq: Status: Active Protocol: Document 01/18/19 15:25 RCC (Rec: 01/20/19 12:37 RCC [email or web address]) Knee Goniometric Range of Motion Knee Measured in Degrees Left Flexion Active (degrees) 103 Knee ROM Limitations Comments L knee AROM- 110 after manual therapy PT-OP-L Special Tests Start: 07/27/18 11:43 Freq: Status: Active Protocol: Document 07/25/18 14:30 RCC (Rec: 07/27/18 15:47 RCC [email or web address]) Special Tests Lumbar Spine Special Tests Straight Leg Raise Test Results positive on the L @ 45 deg PT-OP-M Strength Start: 07/27/18 11:43 Freq: Status: Active Protocol: Document 10/10/18 14:30 RCC (Rec: 10/10/18 17:40 RCC [email or web address]) Hip Strength Hip Manual Muscle Testing Left Flexion (L2) 4 Good Knee Strength Knee Manual Muscle Testing Left Flexion (S2) 4 Good Extension (L3) 4- Good- PT-OP-Q Treatments Start: 07/27/18 11:43 Freq: Status: Active Protocol: Document 01/18/19 15:25 RCC (Rec: 01/20/19 12:[address] [facility] [email or web address]) Gym Equipment Therapeutic Ball knee flex/extension Exercise Details bilateral knee flexion/ extension with ball Ball Size/Color 55 cm ball Body Position Supine Reps/Duration x15 Therapeutic Exercises Supine Exercises psoas and rectus femoris stretching Side left Comments manual for rectus; Left leg hanging off of table heel slide Side left Reps/Minutes 10 Bridging Supine Exercise Name bridging Side bilateral Reps/Minutes 10 Manual Therapy Treatment Soft Tissue Mobilization L quadriceps Body Location L quadriceps Mobilization Type Myofascial Release Rolling Intensity/Depth Moderate Body Position Hooklying Comments hands scar tissue Body Location lateral L thigh Mobilization Type Other Intensity/Depth Moderate Body Position Hooklying Joint Mobilizations tibiofemoral Joint tibiofemoral Direction A/P tibia on femur Grade IV Body Position Supine PF Joint patellofemoral Direction medial, inf, superior Grade IV Body Position Supine PT-OP-R Modalities Start: 07/27/18 11:43 Freq: Status: Active Protocol: Document 01/18/19 15:25 RCC (Rec: 01/20/19 12:[address] [facility] [email or web address]) Hot Pack/Cold Pack Treatment Cold Pack Location L knee Patient Position Hooklying Treatment Duration (minutes) 10 Patient Tolerance Good Comments abram PT-OP-T Assessment and Plan Start: 07/27/18 11:43 Freq: Status: Active Protocol: Document 01/18/19 15:25 RCC (Rec: 01/20/19 12:[address] [facility] [email or web address]) Physical Therapy Assessment Assessment Summary Assessment Pt's L knee ROM 103 degrees AROM prior to manual therapy, and increased to 110 degrees after manual therapy treatment . Pt tolerated therapeutic exercise without c/o low back pain, but admits to L knee fatigue and stiffness. Pt's progress continues to be slow due to multiple comorbidities. Physical Therapy Plan Frequency and Duration Frequency of Treatment 2x/Week Duration of Treatment 8 weeks Plan of Care Start Date 12/26/18 Plan of Care End Date 02/20/19 Next Visit Focus/Plan Next Note Type Treatment Note Next Visit Plan gait and LE strengthening, standing balance
--- NOTE | 2019-02-07 13:31 | PT.OTN ---
Current Diagnoses Multiple sclerosis (02/07/19) Unspecified osteoarthritis, unspecified site (02/07/19) Physical Therapy Treatment Note PT-OP-A Visit Information Start: 07/27/18 11:43 Freq: Status: Active Protocol: Document 02/07/19 13:23 SA (Rec: 02/07/19 13:31 SA [email or web address]) Out-Patient Physical Therapy Visit Information Visit Information Visit Start Time 10:30 Visit Stop Time 11:15 Total Visit Minutes 45 Visit Number 27 Number of DRY YARD WORKER Visits 1 PT-OP-B Current Condition Start: 07/27/18 11:43 Freq: Status: Active Protocol: Document 07/25/18 14:30 RCC (Rec: 07/27/18 11:58 RCC [email or web address]) Current Condition History of Current Condition Onset Date 2016 Current Complaints L knee pain/stiffness, low back pain, impaired mobility History of Current Condition Pt is a 83 y/o female presenting to physical therapy c/o L knee pain and stiffness , low back pain, andimpaired mobility. Pt has a h/o L distal femur fracture with ORIF 2016. 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 Pt has not fallen in the past 3+ months. Radiograph of lumbar spine showed compression fx's at T10, T12, L3 and L4, as well as grade 1 spondylolisthesis @ L4-5. Prior Treatments and Tests PT in past which she was d/c for multiple falls, unsafe to attend outpatient facility. Radiograph for spine showed compression fx @ T10, T12, L3 and L4. Treatment Goals Patient/Caregiver Goals improve mobility, decrease pain, improve function Prior Functional Status Baseline Function- ADL's Modified Independent Baseline Function- Mobility Modified Independent Baseline Function- Gait short distance outdoors indep. Baseline Function- Other pt was doing her own shopping prior to L distal femur fx and ORIF 07/2017 Current Functional Impairments (Reported) Functional Limitations- ADL's some assistance with cleaning Functional Limitations- Mobility/Gait modified indep. short outdoor gait on level surfaces only Personal Factors Other Personal Factors That May Effect Multiple Sclerosis, L distal Therapy/Recovery femur fx s/p ORIF 07/2017, h/o multiple falls, multiple compression fx's PT-OP-C Subjective Start: 07/27/18 11:43 Freq: Status: Active Protocol: Document 02/07/19 13:23 SA (Rec: 02/07/19 13:31 SA [email or web address]) OP-PT Subjective Patient Comments Patient Comments Pt reports she expected to feel worse after not having PT for 2 weeks but feels pretty good. PT-OP-D Balance Start: 07/27/18 11:43 Freq: Status: Active Protocol: Document 12/26/18 15:20 RCC (Rec: 12/26/18 17:48 RCC [email or web address]) Balance Tests Single Limb Standing Single Limb- Right unable Single Limb- Left unable PT-OP-E Functional Tests Start: 07/27/18 11:43 Freq: Status: Active Protocol: Document 09/14/18 15:15 RCC (Rec: 09/15/18 14:06 RCC [email or web address]) Functional Tests Timed Up and Go (TUG) Score 18.28 TUG Impairment Rating 80 to <100% Impaired (Score 18 -19) PT-OP-F Manual Assessment Start: 07/27/18 11:43 Freq: Status: Active Protocol: Document 10/24/18 16:50 RCC (Rec: 10/24/18 17:04 RCC [email or web address]) Manual Assessments Joint Mobility Assessment Joint Mobility Assessment hypomobility L patellofemoral joint medial, inferior and superior glide PT-OP-G Mobility & Gait Start: 07/27/18 11:43 Freq: Status: Active Protocol: Document 12/26/18 15:20 RCC (Rec: 12/26/18 17:48 RCC [email or web address]) OP Gait Assessment Comments Gait Comments decreased step length on the R , push off on the L during ambulation. PT-OP-K Range of Motion Start: 07/27/18 11:43 Freq: Status: Active Protocol: Document 01/18/19 15:25 RCC (Rec: 01/20/19 12:37 RCC [email or web address]) Knee Goniometric Range of Motion Knee Measured in Degrees Left Flexion Active (degrees) 103 Knee ROM Limitations Comments L knee AROM- 110 after manual therapy PT-OP-L Special Tests Start: 07/27/18 11:43 Freq: Status: Active Protocol: Document 07/25/18 14:30 RCC (Rec: 07/27/18 15:47 RCC [email or web address]) Special Tests Lumbar Spine Special Tests Straight Leg Raise Test Results positive on the L @ 45 deg PT-OP-M Strength Start: 07/27/18 11:43 Freq: Status: Active Protocol: Document 10/10/18 14:30 RCC (Rec: 10/10/18 17:40 RCC [email or web address]) Hip Strength Hip Manual Muscle Testing Left Flexion (L2) 4 Good Knee Strength Knee Manual Muscle Testing Left Flexion (S2) 4 Good Extension (L3) 4- Good- PT-OP-Q Treatments Start: 07/27/18 11:43 Freq: Status: Active Protocol: Document 02/07/19 13:23 SA (Rec: 02/07/19 13:31 SA [email or web address]) Gym Equipment Shuttle Recovery Bilateral Heel Raises Resistance 50 lbs Shuttle Recovery Platform Stable Reps/Time 20 Unilateral Squats Resistance 25 lbs Shuttle Recovery Platform Stable Reps/Time 20 Bilateral Squats Resistance 50 lbs Shuttle Recovery Platform Stable Reps/Time 20 Therapeutic Ball knee flex/extension Exercise Details bilateral knee flexion/ extension with ball Ball Size/Color 55 cm ball Body Position Supine Reps/Duration x15 Therapeutic Exercises Supine Exercises psoas and rectus femoris stretching Side left Comments manual for rectus; Left leg hanging off of table heel slide Side left Reps/Minutes 10 DKC Supine Exercise Name SKTC Reps/Minutes 6 x 10 Manual Therapy Treatment Soft Tissue Mobilization L quadriceps Body Location L quadriceps Mobilization Type Myofascial Release Rolling Intensity/Depth Moderate Body Position Hooklying scar tissue Body Location lateral L thigh Mobilization Type Other Intensity/Depth Moderate Body Position Hooklying Joint Mobilizations tibiofemoral Joint tibiofemoral Direction A/P tibia on femur Grade IV Body Position Supine PF Joint patellofemoral Direction medial, inf, superior Grade IV Body Position Supine PT-OP-R Modalities Start: 07/27/18 11:43 Freq: Status: Active Protocol: Document 02/07/19 13:23 SA (Rec: 02/07/19 13:31 SA [email or web address]) Hot Pack/Cold Pack Treatment Cold Pack Location L knee Patient Position Hooklying Treatment Duration (minutes) 10 Patient Tolerance Good Comments bolster PT-OP-T Assessment and Plan Start: 07/27/18 11:43 Freq: Status: Active Protocol: Document 02/07/19 13:23 SA (Rec: 02/07/19 13:31 SA [email or web address]) Physical Therapy Assessment Assessment Summary Assessment L knee ROM 105 degrees prior to manual therapy and 110 degrees after. Pt doing HEP intermittently with good tolerance. Physical Therapy Plan Next Visit Focus/Plan Next Note Type Treatment Note Next Visit Plan gait and LE strengthening, standing balance
--- NOTE | 2019-02-13 17:00 | PT.OTN ---
Current Diagnoses Multiple sclerosis (02/13/19) Unspecified osteoarthritis, unspecified site (02/13/19) Physical Therapy Treatment Note PT-OP-A Visit Information Start: 07/27/18 11:43 Freq: Status: Active Protocol: Document 02/13/19 17:00 [facility] (Rec: 02/14/19 09:33 [facility] [email or web address]) Out-Patient Physical Therapy Visit Information Visit Information Visit Type Treatment Note Visit Start Time 17:00 Visit Stop Time 17:30 Total Visit Minutes 30 Visit Number 28 Number of SCHOOL PSYCHOLOGY SPECIALIST Visits 0 Evaluation Information Evaluation Date 07/25/18 Precautions Precautions fall risk/fall precautions, MS - careful not to overheat or fatigue PT-OP-B Current Condition Start: 07/27/18 11:43 Freq: Status: Active Protocol: Document 07/25/18 14:30 [facility] (Rec: 07/27/18 11:58 [facility] [email or web address]) Current Condition History of Current Condition Onset Date 2016 Current Complaints L knee pain/stiffness, low back pain, impaired mobility History of Current Condition Pt is a 83 y/o female presenting to physical therapy c/o L knee pain and stiffness , low back pain, andimpaired mobility. Pt has a h/o L distal femur fracture with ORIF 2016. 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 Pt has not fallen in the past 3+ months. Radiograph of lumbar spine showed compression fx's at T10, T12, L3 and L4, as well as grade 1 spondylolisthesis @ L4-5. Prior Treatments and Tests PT in past which she was d/c for multiple falls, unsafe to attend outpatient facility. Radiograph for spine showed compression fx @ T10, T12, L3 and L4. Treatment Goals Patient/Caregiver Goals improve mobility, decrease pain, improve function Prior Functional Status Baseline Function- ADL's Modified Independent Baseline Function- Mobility Modified Independent Baseline Function- Gait short distance outdoors indep. Baseline Function- Other pt was doing her own shopping prior to L distal femur fx and ORIF 07/2017 Current Functional Impairments (Reported) Functional Limitations- ADL's some assistance with cleaning Functional Limitations- Mobility/Gait modified indep. short outdoor gait on level surfaces only Personal Factors Other Personal Factors That May Effect Multiple Sclerosis, L distal Therapy/Recovery femur fx s/p ORIF 07/2017, h/o multiple falls, multiple compression fx's PT-OP-C Subjective Start: 07/27/18 11:43 Freq: Status: Active Protocol: Document 02/13/19 17:00 [facility] (Rec: 02/14/19 09:33 [facility] [email or web address]) OP-PT Subjective Patient Comments Patient Comments Pt states she has been up on her feet all day today, apologizes for being late due to multiple appts today. PT-OP-D Balance Start: 07/27/18 11:43 Freq: Status: Active Protocol: Document 12/26/18 15:20 [facility] (Rec: 12/26/18 17:48 [facility] [email or web address]) Balance Tests Single Limb Standing Single Limb- Right unable Single Limb- Left unable PT-OP-E Functional Tests Start: 07/27/18 11:43 Freq: Status: Active Protocol: Document 09/14/18 15:15 [facility] (Rec: 09/15/18 14:06 [facility] [email or web address]) Functional Tests Timed Up and Go (TUG) Score 18.28 TUG Impairment Rating 80 to <100% Impaired (Score 18 -19) PT-OP-F Manual Assessment Start: 07/27/18 11:43 Freq: Status: Active Protocol: Document 10/24/18 16:50 [facility] (Rec: 10/24/18 17:04 [facility] [email or web address]) Manual Assessments Joint Mobility Assessment Joint Mobility Assessment hypomobility L patellofemoral joint medial, inferior and superior glide PT-OP-G Mobility & Gait Start: 07/27/18 11:43 Freq: Status: Active Protocol: Document 12/26/18 15:20 [facility] (Rec: 12/26/18 17:48 [facility] [email or web address]) OP Gait Assessment Comments Gait Comments decreased step length on the R , push off on the L during ambulation. PT-OP-K Range of Motion Start: 07/27/18 11:43 Freq: Status: Active Protocol: Document 02/13/19 17:00 [facility] (Rec: 02/14/19 09:33 [facility] [email or web address]) Knee Goniometric Range of Motion Knee Measured in Degrees Left Flexion Active (degrees) 105 Flexion Passive (degrees) 118 PT-OP-L Special Tests Start: 07/27/18 11:43 Freq: Status: Active Protocol: Document 07/25/18 14:30 [facility] (Rec: 07/27/18 15:47 [facility] [email or web address]) Special Tests Lumbar Spine Special Tests Straight Leg Raise Test Results positive on the L @ 45 deg PT-OP-M Strength Start: 07/27/18 11:43 Freq: Status: Active Protocol: Document 10/10/18 14:30 [facility] (Rec: 10/10/18 17:40 [facility] [email or web address]) Hip Strength Hip Manual Muscle Testing Left Flexion (L2) 4 Good Knee Strength Knee Manual Muscle Testing Left Flexion (S2) 4 Good Extension (L3) 4- Good- PT-OP-Q Treatments Start: 07/27/18 11:43 Freq: Status: Active Protocol: Document 02/13/19 17:00 [facility] (Rec: 02/14/19 09:33 [facility] [email or web address]) Cardio Equipment Recumbent Elliptical (citysocializer) Duration (Minutes) 5 Resistance 1 Seat Position 7 Manual Therapy Treatment Soft Tissue Mobilization L quadriceps Body Location L quadriceps Mobilization Type Myofascial Release Rolling Intensity/Depth Moderate Body Position Hooklying Joint Mobilizations tibiofemoral Joint tibiofemoral Direction A/P tibia on femur Grade IV Body Position Supine PF Joint patellofemoral Direction medial, inf, superior Grade IV Body Position Supine PT-OP-R Modalities Start: 07/27/18 11:43 Freq: Status: Active Protocol: Document 02/07/19 13:23 SA (Rec: 02/07/19 13:31 SA [email or web address]) Hot Pack/Cold Pack Treatment Cold Pack Location L knee Patient Position Hooklying Treatment Duration (minutes) 10 Patient Tolerance Good Comments bolster PT-OP-T Assessment and Plan Start: 07/27/18 11:43 Freq: Status: Active Protocol: Document 02/13/19 17:00 [facility] (Rec: 02/14/19 09:33 [facility] [email or web address]) Physical Therapy Assessment Assessment Summary Assessment Pt with continued improved ROM of the L knee over the past month. Overall, pt appears to be improving with standing tolerance as well. Plan to check objective measures next session. Physical Therapy Plan Frequency and Duration Frequency of Treatment 2x/Week Duration of Treatment 8 weeks Plan of Care Start Date 12/26/18 Plan of Care End Date 02/20/19 Next Visit Focus/Plan Next Note Type Treatment Note Next Visit Plan reassess obj measures
--- NOTE | 2019-02-14 16:00 | PT.OTN ---
Current Diagnoses Multiple sclerosis (02/14/19) Unspecified osteoarthritis, unspecified site (02/14/19) Physical Therapy Treatment Note PT-OP-A Visit Information Start: 07/27/18 11:43 Freq: Status: Active Protocol: Document 02/14/19 16:00 [facility] (Rec: 02/14/19 17:18 [facility] [email or web address]) Out-Patient Physical Therapy Visit Information Visit Information Visit Type Treatment Note Visit Start Time 16:00 Visit Stop Time 16:50 Total Visit Minutes 50 Visit Number 29 Number of AGER OPERATOR Visits 0 Evaluation Information Evaluation Date 07/25/18 Precautions Precautions fall risk/fall precautions, MS - careful not to overheat or fatigue PT-OP-B Current Condition Start: 07/27/18 11:43 Freq: Status: Active Protocol: Document 07/25/18 14:30 [facility] (Rec: 07/27/18 11:58 [facility] [email or web address]) Current Condition History of Current Condition Onset Date 2016 Current Complaints L knee pain/stiffness, low back pain, impaired mobility History of Current Condition Pt is a 83 y/o female presenting to physical therapy c/o L knee pain and stiffness , low back pain, andimpaired mobility. Pt has a h/o L distal femur fracture with ORIF 2016. 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 Pt has not fallen in the past 3+ months. Radiograph of lumbar spine showed compression fx's at T10, T12, L3 and L4, as well as grade 1 spondylolisthesis @ L4-5. Prior Treatments and Tests PT in past which she was d/c for multiple falls, unsafe to attend outpatient facility. Radiograph for spine showed compression fx @ T10, T12, L3 and L4. Treatment Goals Patient/Caregiver Goals improve mobility, decrease pain, improve function Prior Functional Status Baseline Function- ADL's Modified Independent Baseline Function- Mobility Modified Independent Baseline Function- Gait short distance outdoors indep. Baseline Function- Other pt was doing her own shopping prior to L distal femur fx and ORIF 07/2017 Current Functional Impairments (Reported) Functional Limitations- ADL's some assistance with cleaning Functional Limitations- Mobility/Gait modified indep. short outdoor gait on level surfaces only Personal Factors Other Personal Factors That May Effect Multiple Sclerosis, L distal Therapy/Recovery femur fx s/p ORIF 07/2017, h/o multiple falls, multiple compression fx's PT-OP-C Subjective Start: 07/27/18 11:43 Freq: Status: Active Protocol: Document 02/14/19 16:00 [facility] (Rec: 02/14/19 17:18 [facility] [email or web address]) OP-PT Subjective Patient Comments Patient Comments Pt feels well today, she has been feeling more steady on her feet the past week. Patient Questionnaires Lower Extremity Functional Scale LEFS Score 41 OP-PT Pain Assessment Location L knee Intensity 4 Scale Used Numeric (1 - 10) PT-OP-D Balance Start: 07/27/18 11:43 Freq: Status: Active Protocol: Document 12/26/18 15:20 [facility] (Rec: 12/26/18 17:48 [facility] [email or web address]) Balance Tests Single Limb Standing Single Limb- Right unable Single Limb- Left unable PT-OP-E Functional Tests Start: 07/27/18 11:43 Freq: Status: Active Protocol: Document 02/14/19 16:00 [facility] (Rec: 02/14/19 17:18 [facility] [email or web address]) Functional Tests 6 Minute Walk Test Distance 626 ft Device Used 4WW Comments 1.73 ft/sec PT-OP-F Manual Assessment Start: 07/27/18 11:43 Freq: Status: Active Protocol: Document 10/24/18 16:50 [facility] (Rec: 10/24/18 17:04 [facility] [email or web address]) Manual Assessments Joint Mobility Assessment Joint Mobility Assessment hypomobility L patellofemoral joint medial, inferior and superior glide PT-OP-G Mobility & Gait Start: 07/27/18 11:43 Freq: Status: Active Protocol: Document 02/14/19 16:00 [facility] (Rec: 02/14/19 17:18 [facility] [email or web address]) OP Gait Assessment Comments Gait Comments foot drag occasionally during 6 MWT (Left) PT-OP-K Range of Motion Start: 07/27/18 11:43 Freq: Status: Active Protocol: Document 02/14/19 16:00 [facility] (Rec: 02/14/19 17:18 [facility] [email or web address]) Knee Goniometric Range of Motion Knee Measured in Degrees Left Flexion Active (degrees) 108 Flexion Passive (degrees) 119 PT-OP-L Special Tests Start: 07/27/18 11:43 Freq: Status: Active Protocol: Document 07/25/18 14:30 [facility] (Rec: 07/27/18 15:47 [facility] [email or web address]) Special Tests Lumbar Spine Special Tests Straight Leg Raise Test Results positive on the L @ 45 deg PT-OP-M Strength Start: 07/27/18 11:43 Freq: Status: Active Protocol: Document 02/14/19 16:00 [facility] (Rec: 02/14/19 17:18 [facility] [email or web address]) Knee Strength Knee Manual Muscle Testing Left Flexion (S2) 4+ Good+ Extension (L3) 4 Good PT-OP-Q Treatments Start: 07/27/18 11:43 Freq: Status: Active Protocol: Document 02/14/19 16:00 [facility] (Rec: 02/14/19 17:18 [facility] [email or web address]) Therapeutic Exercises Supine Exercises psoas and rectus femoris stretching Side left Comments manual for rectus; Left leg hanging off of table heel slide Side left Reps/Minutes 10 SLR Supine Exercise Name straight leg raise (flexion)- neutral and ER of LLE Side left Reps/Minutes 10 each Manual Therapy Treatment Soft Tissue Mobilization L quadriceps Body Location L quadriceps Mobilization Type Myofascial Release Rolling Intensity/Depth Moderate Body Position Hooklying scar tissue Body Location lateral L thigh Mobilization Type Other Intensity/Depth Moderate Body Position Hooklying Joint Mobilizations tibiofemoral Joint tibiofemoral Direction A/P tibia on femur Grade IV Body Position Supine PF Joint patellofemoral Direction medial, inf, superior Grade IV Body Position Supine Other Other Manual Treatments LE MMT and L knee ROM PT-OP-R Modalities Start: 07/27/18 11:43 Freq: Status: Active Protocol: Document 02/14/19 16:00 RCC (Rec: 02/14/19 17:18 [facility] [email or web address]) Hot Pack/Cold Pack Treatment Cold Pack Location L knee Patient Position Hooklying Treatment Duration (minutes) 10 Patient Tolerance Good Comments abram PT-OP-T Assessment and Plan Start: 07/27/18 11:43 Freq: Status: Active Protocol: Document 02/14/19 16:00 RCC (Rec: 02/14/19 17:18 [facility] [email or web address]) Physical Therapy Assessment Goals Five Impairment 6 Minute Walk Test- slow gait speed Short Term Goal (STG) Pt will ambulate with a gait speed of at least 1.90 ft/sec with the 6 Minute Walk Test. STG Duration 4 weeks Shelter Goal (LTG) Pt will ambulate with a gait speed greater than 1.97 ft/sec during the 6 Minute Walk Test to decrease risk of future further decline in function. LTG Duration 8 weeks Four Impairment Gait/Timed Up and Go Short Term Goal (STG) Timed Up and Go to <30 seconds . 09/14/18: achieved STG Duration achieved Shelter Goal (LTG) Timed Up and Go to <20 seconds to demonstrate improved gait speed, and decreasing fall risk. 09/14/18: achieved LTG Duration achieved Three Impairment L knee ROM Government Affairs Researcher Goal (LTG) 0-120 degrees of the L knee to improve gait and functional motion. 02/14/19: slow but continued progress LTG Duration 8 weeks Two Impairment pain in low back 7/10 Short Term Goal (STG) 5/10 pain reported in low back . 10/10/18: achieved STG Duration achieved Government Affairs Researcher Goal (LTG) 3/10 pain reported in low back or less to demonstrate improved thoracolumbar stability. 12/26/18: pain rated 2/10 or less in low back with all normal activities LTG Duration achieved One Impairment Lower Extremity Functional Scale (14/80) Short Term Goal (STG) Score: 20/80 10/10/18: goal achieved (23/80 ) STG Duration achieved Shelter Goal (LTG) Score: 25/80 or greater to demonstrate improvements with functional mobility. 12/26/18: 35/80. LTG Duration achieved Assessment Summary Assessment Pt's passive L knee ROM to 119 degrees today after manual therapy, but able to achieve active ROM to 108 degrees today prior to treatment. Pt was tested with the 6 Minute Walk Test, and able to ambulate 626 ft using a 4WW. Gait distance of this amount is equal to a gait speed of 1. 73 ft/sec. A gait speed of 1. 97 ft/sec or less is indicitive of further functional decline in the future. Pt's L knee pain is improving and her Lower Extremity Functional Scale score has improved to 41/80 ( last scored 35/40 on 12/26/2018 ). Pt is making functional improvements, however would greatly benefit from continued skilled physical therapy to continue to improve L knee strength, ROM, gait, and overall safety with functional activities. Physical Therapy Plan Frequency and Duration Frequency of Treatment 2x/Week Duration of Treatment 8 weeks Plan of Care Start Date 02/14/19 Plan of Care End Date 04/11/19 Therapeutic Interventions Therapeutic Interventions Aquatic Therapy Balance Training Gait Training Home Exercise Program Joint Mobilizations Manual Therapy Neuromuscular Re-education Patient/Caregiver Education Self-Care/Home Management Soft Tissue Mobilization Taping Therapeutic Activities Therapeutic Exercises Modalities Cold Pack/Ice Massage Electric Stimulation Ultrasound Next Visit Focus/Plan Next Note Type Treatment Note Next Visit Plan progress L knee ROM, sit<-> stand transitions, gait training.
--- NOTE | 2019-02-20 15:25 | PT.OTN ---
Current Diagnoses Multiple sclerosis (02/20/19) Unspecified osteoarthritis, unspecified site (02/20/19) Physical Therapy Treatment Note PT-OP-A Visit Information Start: 07/27/18 11:43 Freq: Status: Active Protocol: Document 02/20/19 15:25 RCC (Rec: 02/20/19 17:41 RCC [email or web address]) Out-Patient Physical Therapy Visit Information Visit Information Visit Type Treatment Note Visit Note Progress note 11/29 Visit Start Time 15:25 Visit Stop Time 16:00 Total Visit Minutes 35 Visit Number 30 Number of CYANIDE CASE HARDENER Visits 0 Evaluation Information Evaluation Date 07/25/18 Precautions Precautions fall risk/fall precautions, MS - careful not to overheat or fatigue PT-OP-B Current Condition Start: 07/27/18 11:43 Freq: Status: Active Protocol: Document 07/25/18 14:30 RCC (Rec: 07/27/18 11:58 RCC [email or web address]) Current Condition History of Current Condition Onset Date 2016 Current Complaints L knee pain/stiffness, low back pain, impaired mobility History of Current Condition Pt is a 83 y/o female presenting to physical therapy c/o L knee pain and stiffness , low back pain, andimpaired mobility. Pt has a h/o L distal femur fracture with ORIF 2016. 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 Pt has not fallen in the past 3+ months. Radiograph of lumbar spine showed compression fx's at T10, T12, L3 and L4, as well as grade 1 spondylolisthesis @ L4-5. Prior Treatments and Tests PT in past which she was d/c for multiple falls, unsafe to attend outpatient facility. Radiograph for spine showed compression fx @ T10, T12, L3 and L4. Treatment Goals Patient/Caregiver Goals improve mobility, decrease pain, improve function Prior Functional Status Baseline Function- ADL's Modified Independent Baseline Function- Mobility Modified Independent Baseline Function- Gait short distance outdoors indep. Baseline Function- Other pt was doing her own shopping prior to L distal femur fx and ORIF 07/2017 Current Functional Impairments (Reported) Functional Limitations- ADL's some assistance with cleaning Functional Limitations- Mobility/Gait modified indep. short outdoor gait on level surfaces only Personal Factors Other Personal Factors That May Effect Multiple Sclerosis, L distal Therapy/Recovery femur fx s/p ORIF 07/2017, h/o multiple falls, multiple compression fx's PT-OP-C Subjective Start: 07/27/18 11:43 Freq: Status: Active Protocol: Document 02/20/19 15:25 [facility] (Rec: 02/20/19 17:41 [facility] [email or web address]) OP-PT Subjective Patient Comments Patient Comments Pt reports that she has been doing the bike at home. She has felt more off-balance today. PT-OP-D Balance Start: 07/27/18 11:43 Freq: Status: Active Protocol: Document 12/26/18 15:20 [facility] (Rec: 12/26/18 17:48 [facility] [email or web address]) Balance Tests Single Limb Standing Single Limb- Right unable Single Limb- Left unable PT-OP-E Functional Tests Start: 07/27/18 11:43 Freq: Status: Active Protocol: Document 02/14/19 16:00 [facility] (Rec: 02/14/19 17:18 [facility] [email or web address]) Functional Tests 6 Minute Walk Test Distance 626 ft Device Used 4WW Comments 1.73 ft/sec PT-OP-F Manual Assessment Start: 07/27/18 11:43 Freq: Status: Active Protocol: Document 10/24/18 16:50 [facility] (Rec: 10/24/18 17:04 [facility] [email or web address]) Manual Assessments Joint Mobility Assessment Joint Mobility Assessment hypomobility L patellofemoral joint medial, inferior and superior glide PT-OP-G Mobility & Gait Start: 07/27/18 11:43 Freq: Status: Active Protocol: Document 02/14/19 16:00 [facility] (Rec: 02/14/19 17:18 [facility] [email or web address]) OP Gait Assessment Comments Gait Comments foot drag occasionally during 6 MWT (Left) PT-OP-K Range of Motion Start: 07/27/18 11:43 Freq: Status: Active Protocol: Document 02/20/19 15:25 [facility] (Rec: 02/20/19 17:41 [facility] [email or web address]) Knee Goniometric Range of Motion Knee Measured in Degrees Left Flexion Active (degrees) 106 Flexion Passive (degrees) 115 PT-OP-L Special Tests Start: 07/27/18 11:43 Freq: Status: Active Protocol: Document 07/25/18 14:30 [facility] (Rec: 07/27/18 15:47 [facility] [email or web address]) Special Tests Lumbar Spine Special Tests Straight Leg Raise Test Results positive on the L @ 45 deg PT-OP-M Strength Start: 07/27/18 11:43 Freq: Status: Active Protocol: Document 02/14/19 16:00 [facility] (Rec: 02/14/19 17:18 [facility] [email or web address]) Knee Strength Knee Manual Muscle Testing Left Flexion (S2) 4+ Good+ Extension (L3) 4 Good PT-OP-Q Treatments Start: 07/27/18 11:43 Freq: Status: Active Protocol: Document 02/20/19 15:25 RCC (Rec: 02/20/19 17:41 [facility] [email or web address]) Gym Equipment Shuttle Recovery Bilateral Heel Raises Resistance 50 lbs Shuttle Recovery Platform Stable Reps/Time 20 Bilateral Squats Resistance 50 lbs Shuttle Recovery Platform Stable Reps/Time 20 Therapeutic Exercises Supine Exercises heel slide Side left Reps/Minutes 10 Standing Exercises SLS Side left Reps/Minutes 2 min Comments // bars for UE support sit<->stand squats Standing Exercise Name STS with TrAb activation Side bilateral Reps/Minutes x5 Manual Therapy Treatment Soft Tissue Mobilization L quadriceps Body Location L quadriceps Mobilization Type Myofascial Release Rolling Intensity/Depth Moderate Body Position Hooklying scar tissue Body Location lateral L thigh Mobilization Type Other Intensity/Depth Moderate Body Position Hooklying Joint Mobilizations tibiofemoral Joint tibiofemoral Direction A/P tibia on femur Grade IV Body Position Supine PF Joint patellofemoral Direction medial, inf, superior Grade IV Body Position Supine PT-OP-T Assessment and Plan Start: 07/27/18 11:43 Freq: Status: Active Protocol: Document 02/20/19 15:25 [facility] (Rec: 02/20/19 17:41 [facility] [email or web address]) Physical Therapy Assessment Assessment Summary Assessment Pt unable to perform SLS without UE support. Pt with improved knee flexion during swing phase on the L with gait , but still with occasional foot drag of the L foot. Physical Therapy Plan Frequency and Duration Frequency of Treatment 2x/Week Duration of Treatment 8 weeks Plan of Care Start Date 02/14/19 Plan of Care End Date 04/11/19 Next Visit Focus/Plan Next Note Type Treatment Note Next Visit Plan prog. LE strength, standing balance, gait
--- NOTE | 2019-02-22 15:29 | PT.OTN ---
Current Diagnoses Multiple sclerosis (02/22/19) Unspecified osteoarthritis, unspecified site (02/22/19) Physical Therapy Treatment Note PT-OP-A Visit Information Start: 07/27/18 11:43 Freq: Status: Active Protocol: Document 02/22/19 15:29 RCC (Rec: 02/22/19 17:13 RCC [email or web address]) Out-Patient Physical Therapy Visit Information Visit Information Visit Type Treatment Note Visit Note 12/30 Visit Start Time 15:29 Visit Stop Time 16:00 Total Visit Minutes 31 Visit Number 31 Number of PIPE INSPECTOR Visits 0 Evaluation Information Evaluation Date 07/25/18 Precautions Precautions fall risk/fall precautions, MS - careful not to overheat or fatigue PT-OP-B Current Condition Start: 07/27/18 11:43 Freq: Status: Active Protocol: Document 07/25/18 14:30 RCC (Rec: 07/27/18 11:58 RCC [email or web address]) Current Condition History of Current Condition Onset Date 2016 Current Complaints L knee pain/stiffness, low back pain, impaired mobility History of Current Condition Pt is a 83 y/o female presenting to physical therapy c/o L knee pain and stiffness , low back pain, andimpaired mobility. Pt has a h/o L distal femur fracture with ORIF 2016. 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 Pt has not fallen in the past 3+ months. Radiograph of lumbar spine showed compression fx's at T10, T12, L3 and L4, as well as grade 1 spondylolisthesis @ L4-5. Prior Treatments and Tests PT in past which she was d/c for multiple falls, unsafe to attend outpatient facility. Radiograph for spine showed compression fx @ T10, T12, L3 and L4. Treatment Goals Patient/Caregiver Goals improve mobility, decrease pain, improve function Prior Functional Status Baseline Function- ADL's Modified Independent Baseline Function- Mobility Modified Independent Baseline Function- Gait short distance outdoors indep. Baseline Function- Other pt was doing her own shopping prior to L distal femur fx and ORIF 07/2017 Current Functional Impairments (Reported) Functional Limitations- ADL's some assistance with cleaning Functional Limitations- Mobility/Gait modified indep. short outdoor gait on level surfaces only Personal Factors Other Personal Factors That May Effect Multiple Sclerosis, L distal Therapy/Recovery femur fx s/p ORIF 07/2017, h/o multiple falls, multiple compression fx's PT-OP-C Subjective Start: 07/27/18 11:43 Freq: Status: Active Protocol: Document 02/22/19 15:29 RCC (Rec: 02/22/19 17:13 RCC [email or web address]) OP-PT Subjective Patient Comments Patient Comments Pt feels a little more motion in her L knee today. PT-OP-D Balance Start: 07/27/18 11:43 Freq: Status: Active Protocol: Document 12/26/18 15:20 RCC (Rec: 12/26/18 17:48 RCC [email or web address]) Balance Tests Single Limb Standing Single Limb- Right unable Single Limb- Left unable PT-OP-E Functional Tests Start: 07/27/18 11:43 Freq: Status: Active Protocol: Document 02/14/19 16:00 RCC (Rec: 02/14/19 17:18 RCC [email or web address]) Functional Tests 6 Minute Walk Test Distance 626 ft Device Used 4WW Comments 1.73 ft/sec PT-OP-F Manual Assessment Start: 07/27/18 11:43 Freq: Status: Active Protocol: Document 10/24/18 16:50 RCC (Rec: 10/24/18 17:04 RCC [email or web address]) Manual Assessments Joint Mobility Assessment Joint Mobility Assessment hypomobility L patellofemoral joint medial, inferior and superior glide PT-OP-G Mobility & Gait Start: 07/27/18 11:43 Freq: Status: Active Protocol: Document 02/14/19 16:00 RCC (Rec: 02/14/19 17:18 RCC [email or web address]) OP Gait Assessment Comments Gait Comments foot drag occasionally during 6 MWT (Left) PT-OP-K Range of Motion Start: 07/27/18 11:43 Freq: Status: Active Protocol: Document 02/22/19 15:29 RCC (Rec: 02/22/19 17:13 RCC [email or web address]) Knee Goniometric Range of Motion Knee Measured in Degrees Left Flexion Active (degrees) 111 Flexion Passive (degrees) 119 PT-OP-L Special Tests Start: 07/27/18 11:43 Freq: Status: Active Protocol: Document 07/25/18 14:30 RCC (Rec: 07/27/18 15:47 RCC [email or web address]) Special Tests Lumbar Spine Special Tests Straight Leg Raise Test Results positive on the L @ 45 deg PT-OP-M Strength Start: 07/27/18 11:43 Freq: Status: Active Protocol: Document 02/14/19 16:00 RCC (Rec: 02/14/19 17:18 RCC [email or web address]) Knee Strength Knee Manual Muscle Testing Left Flexion (S2) 4+ Good+ Extension (L3) 4 Good PT-OP-Q Treatments Start: 07/27/18 11:43 Freq: Status: Active Protocol: Document 02/22/19 15:29 RCC (Rec: 02/22/19 17:13 [facility] [email or web address]) Cardio Equipment Recumbent Elliptical ([employer]) Duration (Minutes) 6 Resistance 1 Seat Position 6 Therapeutic Exercises Supine Exercises psoas and rectus femoris stretching Side left Comments manual for rectus; Left leg hanging off of table heel slide Side left Reps/Minutes 10 Manual Therapy Treatment Soft Tissue Mobilization L quadriceps Body Location L quadriceps Mobilization Type Myofascial Release Rolling Intensity/Depth Moderate Body Position Hooklying Joint Mobilizations tibiofemoral Joint tibiofemoral Direction A/P tibia on femur Grade IV Body Position Supine PF Joint patellofemoral Direction medial, inf, superior Grade IV Body Position Supine PT-OP-R Modalities Start: 07/27/18 11:43 Freq: Status: Active Protocol: Document 02/14/19 16:00 RCC (Rec: 02/14/19 17:18 [facility] [email or web address]) Hot Pack/Cold Pack Treatment Cold Pack Location L knee Patient Position Hooklying Treatment Duration (minutes) 10 Patient Tolerance Good Comments bolster PT-OP-T Assessment and Plan Start: 07/27/18 11:43 Freq: Status: Active Protocol: Document 02/22/19 15:29 RCC (Rec: 02/22/19 17:13 [facility] [email or web address]) Physical Therapy Assessment Assessment Summary Assessment Pt with improved L knee ROM since previous visit, able to achieve 111 degrees actively and 119 passively. Pt with improved sit<->stand ability with less time required to get fully erect in standing position. Physical Therapy Plan Frequency and Duration Frequency of Treatment 2x/Week Duration of Treatment 8 weeks Plan of Care Start Date 02/14/19 Plan of Care End Date 04/11/19 Next Visit Focus/Plan Next Note Type Treatment Note Next Visit Plan cont to advance L knee ROM, gait and LE stability
--- NOTE | 2019-03-06 08:06 | PT.OTN ---
Current Diagnoses Multiple sclerosis (03/06/19) Unspecified osteoarthritis, unspecified site (03/06/19) Physical Therapy Treatment Note PT-OP-A Visit Information Start: 07/27/18 11:43 Freq: Status: Active Protocol: Document 03/06/19 14:40 SAK (Rec: 03/06/19 15:19 SAK [id number]) Out-Patient Physical Therapy Visit Information Visit Information Visit Type Treatment Note Visit Note 01/27 Visit Start Time 14:35 Visit Stop Time 15:15 Total Visit Minutes 40 Visit Number 32 Number of COUTURE ALTERATIONS DRESSMAKER Visits 0 Evaluation Information Evaluation Date 07/25/18 Precautions Precautions fall risk/fall precautions, MS - careful not to overheat or fatigue PT-OP-B Current Condition Start: 07/27/18 11:43 Freq: Status: Active Protocol: Document 07/25/18 14:30 RCC (Rec: 07/27/18 11:58 RCC [email or web address]) Current Condition History of Current Condition Onset Date 2016 Current Complaints L knee pain/stiffness, low back pain, impaired mobility History of Current Condition Pt is a 83 y/o female presenting to physical therapy c/o L knee pain and stiffness , low back pain, andimpaired mobility. Pt has a h/o L distal femur fracture with ORIF 2016. 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 Pt has not fallen in the past 3+ months. Radiograph of lumbar spine showed compression fx's at T10, T12, L3 and L4, as well as grade 1 spondylolisthesis @ L4-5. Prior Treatments and Tests PT in past which she was d/c for multiple falls, unsafe to attend outpatient facility. Radiograph for spine showed compression fx @ T10, T12, L3 and L4. Treatment Goals Patient/Caregiver Goals improve mobility, decrease pain, improve function Prior Functional Status Baseline Function- ADL's Modified Independent Baseline Function- Mobility Modified Independent Baseline Function- Gait short distance outdoors indep. Baseline Function- Other pt was doing her own shopping prior to L distal femur fx and ORIF 07/2017 Current Functional Impairments (Reported) Functional Limitations- ADL's some assistance with cleaning Functional Limitations- Mobility/Gait modified indep. short outdoor gait on level surfaces only Personal Factors Other Personal Factors That May Effect Multiple Sclerosis, L distal Therapy/Recovery femur fx s/p ORIF 07/2017, h/o multiple falls, multiple compression fx's PT-OP-C Subjective Start: 07/27/18 11:43 Freq: Status: Active Protocol: Document 03/06/19 14:40 SAK (Rec: 03/06/19 15:19 SAK [id number]) OP-PT Subjective Patient Comments Patient Comments Feels very stiff today, thinks stress from upcoming move making everything worse. PT-OP-D Balance Start: 07/27/18 11:43 Freq: Status: Active Protocol: Document 12/26/18 15:20 RCC (Rec: 12/26/18 17:48 RCC [email or web address]) Balance Tests Single Limb Standing Single Limb- Right unable Single Limb- Left unable PT-OP-E Functional Tests Start: 07/27/18 11:43 Freq: Status: Active Protocol: Document 02/14/19 16:00 RCC (Rec: 02/14/19 17:18 RCC [email or web address]) Functional Tests 6 Minute Walk Test Distance 626 ft Device Used 4WW Comments 1.73 ft/sec PT-OP-F Manual Assessment Start: 07/27/18 11:43 Freq: Status: Active Protocol: Document 10/24/18 16:50 RCC (Rec: 10/24/18 17:04 RCC [email or web address]) Manual Assessments Joint Mobility Assessment Joint Mobility Assessment hypomobility L patellofemoral joint medial, inferior and superior glide PT-OP-G Mobility & Gait Start: 07/27/18 11:43 Freq: Status: Active Protocol: Document 02/14/19 16:00 RCC (Rec: 02/14/19 17:18 RCC [email or web address]) OP Gait Assessment Comments Gait Comments foot drag occasionally during 6 MWT (Left) PT-OP-K Range of Motion Start: 07/27/18 11:43 Freq: Status: Active Protocol: Document 02/22/19 15:29 RCC (Rec: 02/22/19 17:13 RCC [email or web address]) Knee Goniometric Range of Motion Knee Measured in Degrees Left Flexion Active (degrees) 111 Flexion Passive (degrees) 119 PT-OP-L Special Tests Start: 07/27/18 11:43 Freq: Status: Active Protocol: Document 07/25/18 14:30 RCC (Rec: 07/27/18 15:47 RCC [email or web address]) Special Tests Lumbar Spine Special Tests Straight Leg Raise Test Results positive on the L @ 45 deg PT-OP-M Strength Start: 07/27/18 11:43 Freq: Status: Active Protocol: Document 02/14/19 16:00 RCC (Rec: 02/14/19 17:18 RCC [email or web address]) Knee Strength Knee Manual Muscle Testing Left Flexion (S2) 4+ Good+ Extension (L3) 4 Good PT-OP-Q Treatments Start: 07/27/18 11:43 Freq: Status: Active Protocol: Document 03/06/19 14:40 SAK (Rec: 03/06/19 15:19 SAK [id number]) Cardio Equipment Recumbent Elliptical ([employer] Duration (Minutes) 10 Resistance 1 Seat Position 6 Other LE's only last 1 min Gym Equipment Shuttle Recovery Bilateral Heel Raises Resistance 50 lbs Shuttle Recovery Platform Stable Reps/Time 20 Unilateral Squats Resistance 25 lbs Shuttle Recovery Platform Stable Reps/Time 20 Bilateral Squats Resistance 50 lbs Shuttle Recovery Platform Stable Reps/Time 20 Therapeutic Exercises Supine Exercises gravity assisted knee flex Reps/Minutes 6x Comments slider sheet, laying on shuttle leg press psoas and rectus femoris stretching Side left Comments manual for rectus; Left leg hanging off of table heel slide Side left Reps/Minutes 10 Sitting Exercises HS curls Side left Resistance pink latex free Reps/Minutes 1x15 Manual Therapy Treatment Soft Tissue Mobilization L quadriceps Body Location L quadriceps Mobilization Type Myofascial Release Rolling Intensity/Depth Moderate Body Position Hooklying scar tissue Body Location lateral L thigh Mobilization Type Other Intensity/Depth Moderate Body Position Hooklying Joint Mobilizations tibiofemoral Joint tibiofemoral Direction A/P tibia on femur Grade IV Body Position Supine PF Joint patellofemoral Direction medial, inf, superior Grade IV Body Position Supine PT-OP-R Modalities Start: 07/27/18 11:43 Freq: Status: Active Protocol: Document 03/06/19 14:40 SAK (Rec: 03/07/19 08:06 SAK [id number]) Hot Pack/Cold Pack Treatment Cold Pack Location L knee Patient Position Hooklying Treatment Duration (minutes) 10 Patient Tolerance Good Comments bolster PT-OP-T Assessment and Plan Start: 07/27/18 11:43 Freq: Status: Active Protocol: Document 03/06/19 14:40 SAK (Rec: 03/07/19 08:06 [facility] [id number]) Physical Therapy Assessment Goals Five Impairment 6 Minute Walk Test- slow gait speed Short Term Goal (STG) Pt will ambulate with a gait speed of at least 1.90 ft/sec with the 6 Minute Walk Test. STG Duration 4 weeks Security System Installer Goal (LTG) Pt will ambulate with a gait speed greater than 1.97 ft/sec during the 6 Minute Walk Test to decrease risk of future further decline in function. LTG Duration 8 weeks Four Impairment Gait/Timed Up and Go Short Term Goal (STG) Timed Up and Go to <30 seconds . 09/14/18: achieved STG Duration achieved Security System Installer Goal (LTG) Timed Up and Go to <20 seconds to demonstrate improved gait speed, and decreasing fall risk. 09/14/18: achieved LTG Duration achieved Three Impairment L knee ROM Senior Living Goal (LTG) 0-120 degrees of the L knee to improve gait and functional motion. 02/14/19: slow but continued progress LTG Duration 8 weeks Two Impairment pain in low back 7/10 Short Term Goal (STG) 5/10 pain reported in low back . 10/10/18: achieved STG Duration achieved Security System Installer Goal (LTG) 3/10 pain reported in low back or less to demonstrate improved thoracolumbar stability. 12/26/18: pain rated 2/10 or less in low back with all normal activities LTG Duration achieved One Impairment Lower Extremity Functional Scale (14/80) Short Term Goal (STG) Score: 20/80 10/10/18: goal achieved (23/80 ) STG Duration achieved Senior Living Goal (LTG) Score: 25/80 or greater to demonstrate improvements with functional mobility. 12/26/18: 35/80. LTG Duration achieved Assessment Summary Assessment Patient very stiff today per her report, confirmed with goniometric measurement; left knee PROM only to 115 today at end of session Physical Therapy Plan Frequency and Duration Frequency of Treatment 2x/Week Duration of Treatment 8 weeks Plan of Care Start Date 02/14/19 Plan of Care End Date 04/11/19 Therapeutic Interventions Therapeutic Interventions Aquatic Therapy Balance Training Gait Training Home Exercise Program Joint Mobilizations Manual Therapy Neuromuscular Re-education Patient/Caregiver Education Self-Care/Home Management Soft Tissue Mobilization Taping Therapeutic Activities Therapeutic Exercises Modalities Cold Pack/Ice Massage Electric Stimulation Ultrasound Next Visit Focus/Plan Next Note Type Treatment Note Next Visit Plan cont to advance L knee ROM, gait and LE stability
--- NOTE | 2019-03-13 15:17 | PT.OTN ---
Current Diagnoses Multiple sclerosis (03/13/19) Unspecified osteoarthritis, unspecified site (03/13/19) Physical Therapy Treatment Note PT-OP-A Visit Information Start: 07/27/18 11:43 Freq: Status: Active Protocol: Document 03/13/19 15:11 GGD (Rec: 03/13/19 15:17 GGD [email or web address]) Out-Patient Physical Therapy Visit Information Visit Information Visit Type Treatment Note Visit Note 02/27 Visit Start Time 14:35 Visit Stop Time 15:25 Total Visit Minutes 50 Visit Number 33 Number of POLICE SERGEANT PRECINCT Visits 1 PT-OP-B Current Condition Start: 07/27/18 11:43 Freq: Status: Active Protocol: Document 07/25/18 14:30 RCC (Rec: 07/27/18 11:58 RCC [email or web address]) Current Condition History of Current Condition Onset Date 2016 Current Complaints L knee pain/stiffness, low back pain, impaired mobility History of Current Condition Pt is a 83 y/o female presenting to physical therapy c/o L knee pain and stiffness , low back pain, andimpaired mobility. Pt has a h/o L distal femur fracture with ORIF 2016. 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 Pt has not fallen in the past 3+ months. Radiograph of lumbar spine showed compression fx's at T10, T12, L3 and L4, as well as grade 1 spondylolisthesis @ L4-5. Prior Treatments and Tests PT in past which she was d/c for multiple falls, unsafe to attend outpatient facility. Radiograph for spine showed compression fx @ T10, T12, L3 and L4. Treatment Goals Patient/Caregiver Goals improve mobility, decrease pain, improve function Prior Functional Status Baseline Function- ADL's Modified Independent Baseline Function- Mobility Modified Independent Baseline Function- Gait short distance outdoors indep. Baseline Function- Other pt was doing her own shopping prior to L distal femur fx and ORIF 07/2017 Current Functional Impairments (Reported) Functional Limitations- ADL's some assistance with cleaning Functional Limitations- Mobility/Gait modified indep. short outdoor gait on level surfaces only Personal Factors Other Personal Factors That May Effect Multiple Sclerosis, L distal Therapy/Recovery femur fx s/p ORIF 07/2017, h/o multiple falls, multiple compression fx's PT-OP-C Subjective Start: 07/27/18 11:43 Freq: Status: Active Protocol: Document 03/13/19 15:11 GGD (Rec: 03/13/19 15:17 GGD [email or web address]) OP-PT Subjective Patient Comments Patient Comments Pt states she been doing a lot and she is stiff all over. PT-OP-D Balance Start: 07/27/18 11:43 Freq: Status: Active Protocol: Document 12/26/18 15:20 RCC (Rec: 12/26/18 17:48 RCC [email or web address]) Balance Tests Single Limb Standing Single Limb- Right unable Single Limb- Left unable PT-OP-E Functional Tests Start: 07/27/18 11:43 Freq: Status: Active Protocol: Document 02/14/19 16:00 RCC (Rec: 02/14/19 17:18 RCC [email or web address]) Functional Tests 6 Minute Walk Test Distance 626 ft Device Used 4WW Comments 1.73 ft/sec PT-OP-F Manual Assessment Start: 07/27/18 11:43 Freq: Status: Active Protocol: Document 10/24/18 16:50 RCC (Rec: 10/24/18 17:04 RCC [email or web address]) Manual Assessments Joint Mobility Assessment Joint Mobility Assessment hypomobility L patellofemoral joint medial, inferior and superior glide PT-OP-G Mobility & Gait Start: 07/27/18 11:43 Freq: Status: Active Protocol: Document 02/14/19 16:00 RCC (Rec: 02/14/19 17:18 RCC [email or web address]) OP Gait Assessment Comments Gait Comments foot drag occasionally during 6 MWT (Left) PT-OP-K Range of Motion Start: 07/27/18 11:43 Freq: Status: Active Protocol: Document 02/22/19 15:29 RCC (Rec: 02/22/19 17:13 RCC [email or web address]) Knee Goniometric Range of Motion Knee Measured in Degrees Left Flexion Active (degrees) 111 Flexion Passive (degrees) 119 PT-OP-L Special Tests Start: 07/27/18 11:43 Freq: Status: Active Protocol: Document 07/25/18 14:30 RCC (Rec: 07/27/18 15:47 RCC [email or web address]) Special Tests Lumbar Spine Special Tests Straight Leg Raise Test Results positive on the L @ 45 deg PT-OP-M Strength Start: 07/27/18 11:43 Freq: Status: Active Protocol: Document 02/14/19 16:00 RCC (Rec: 02/14/19 17:18 RCC [email or web address]) Knee Strength Knee Manual Muscle Testing Left Flexion (S2) 4+ Good+ Extension (L3) 4 Good PT-OP-Q Treatments Start: 07/27/18 11:43 Freq: Status: Active Protocol: Document 03/13/19 15:11 GGD (Rec: 03/13/19 15:17 GGD [email or web address]) Cardio Equipment Recumbent Elliptical ([employer]) Duration (Minutes) 10 Resistance 1 Seat Position 6 Other LE's only last 1 min Gym Equipment Shuttle Recovery Bilateral Heel Raises Resistance 50 lbs Shuttle Recovery Platform Stable Reps/Time 20 Unilateral Squats Resistance 25 lbs Shuttle Recovery Platform Stable Reps/Time 20 Bilateral Squats Resistance 50 lbs Shuttle Recovery Platform Stable Reps/Time 20 Therapeutic Exercises Supine Exercises psoas and rectus femoris stretching Side left Comments manual for rectus; Left leg hanging off of table heel slide Side left Reps/Minutes 10 Manual Therapy Treatment Soft Tissue Mobilization L quadriceps Body Location L quadriceps Mobilization Type Myofascial Release Rolling Intensity/Depth Moderate Body Position Hooklying scar tissue Body Location lateral L thigh Mobilization Type Other Intensity/Depth Moderate Body Position Hooklying Joint Mobilizations tibiofemoral Joint tibiofemoral Direction A/P tibia on femur Grade IV Body Position Supine PF Joint patellofemoral Direction medial, inf, superior Grade IV Body Position Supine PT-OP-R Modalities Start: 07/27/18 11:43 Freq: Status: Active Protocol: Document 03/13/19 15:11 GGD (Rec: 03/13/19 15:17 GGD [email or web address]) Hot Pack/Cold Pack Treatment Cold Pack Location L knee Patient Position Hooklying Treatment Duration (minutes) 10 Patient Tolerance Good Comments bolster PT-OP-T Assessment and Plan Start: 07/27/18 11:43 Freq: Status: Active Protocol: Document 03/13/19 15:11 GGD (Rec: 03/13/19 15:17 GGD [email or web address]) Physical Therapy Assessment Assessment Summary Assessment Pt had decrease fatigue and improved tolerance to exercise . She is slowly progressing with knee ROM. Physical Therapy Plan Frequency and Duration Frequency of Treatment 2x/Week Duration of Treatment 8 weeks Plan of Care Start Date 02/14/19 Plan of Care End Date 04/11/19 Next Visit Focus/Plan Next Note Type Treatment Note Next Visit Plan cont to advance L knee ROM, gait and LE stability
--- NOTE | 2019-03-15 16:54 | PT.OTN ---
Current Diagnoses Multiple sclerosis (03/15/19) Unspecified osteoarthritis, unspecified site (03/15/19) Physical Therapy Treatment Note PT-OP-A Visit Information Start: 07/27/18 11:43 Freq: Status: Active Protocol: Document 03/15/19 16:47 SA (Rec: 03/15/19 16:53 SA [email or web address]) Out-Patient Physical Therapy Visit Information Visit Information Visit Type Treatment Note Visit Note 03/29 Visit Start Time 14:30 Visit Stop Time 15:15 Total Visit Minutes 45 Visit Number 34 Number of TYPESETTER APPRENTICE Visits 2 PT-OP-B Current Condition Start: 07/27/18 11:43 Freq: Status: Active Protocol: Document 07/25/18 14:30 RCC (Rec: 07/27/18 11:58 RCC [email or web address]) Current Condition History of Current Condition Onset Date 2016 Current Complaints L knee pain/stiffness, low back pain, impaired mobility History of Current Condition Pt is a 83 y/o female presenting to physical therapy c/o L knee pain and stiffness , low back pain, andimpaired mobility. Pt has a h/o L distal femur fracture with ORIF 2016. 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 Pt has not fallen in the past 3+ months. Radiograph of lumbar spine showed compression fx's at T10, T12, L3 and L4, as well as grade 1 spondylolisthesis @ L4-5. Prior Treatments and Tests PT in past which she was d/c for multiple falls, unsafe to attend outpatient facility. Radiograph for spine showed compression fx @ T10, T12, L3 and L4. Treatment Goals Patient/Caregiver Goals improve mobility, decrease pain, improve function Prior Functional Status Baseline Function- ADL's Modified Independent Baseline Function- Mobility Modified Independent Baseline Function- Gait short distance outdoors indep. Baseline Function- Other pt was doing her own shopping prior to L distal femur fx and ORIF 07/2017 Current Functional Impairments (Reported) Functional Limitations- ADL's some assistance with cleaning Functional Limitations- Mobility/Gait modified indep. short outdoor gait on level surfaces only Personal Factors Other Personal Factors That May Effect Multiple Sclerosis, L distal Therapy/Recovery femur fx s/p ORIF 07/2017, h/o multiple falls, multiple compression fx's PT-OP-C Subjective Start: 07/27/18 11:43 Freq: Status: Active Protocol: Document 03/15/19 16:47 SA (Rec: 03/15/19 16:53 SA [email or web address]) OP-PT Subjective Patient Comments Patient Comments Pt reports feeling sore and stressed out becaus of upcoing moving. PT-OP-D Balance Start: 07/27/18 11:43 Freq: Status: Active Protocol: Document 12/26/18 15:20 RCC (Rec: 12/26/18 17:48 RCC [email or web address]) Balance Tests Single Limb Standing Single Limb- Right unable Single Limb- Left unable PT-OP-E Functional Tests Start: 07/27/18 11:43 Freq: Status: Active Protocol: Document 02/14/19 16:00 RCC (Rec: 02/14/19 17:18 RCC [email or web address]) Functional Tests 6 Minute Walk Test Distance 626 ft Device Used 4WW Comments 1.73 ft/sec PT-OP-F Manual Assessment Start: 07/27/18 11:43 Freq: Status: Active Protocol: Document 10/24/18 16:50 RCC (Rec: 10/24/18 17:04 RCC [email or web address]) Manual Assessments Joint Mobility Assessment Joint Mobility Assessment hypomobility L patellofemoral joint medial, inferior and superior glide PT-OP-G Mobility & Gait Start: 07/27/18 11:43 Freq: Status: Active Protocol: Document 02/14/19 16:00 RCC (Rec: 02/14/19 17:18 RCC [email or web address]) OP Gait Assessment Comments Gait Comments foot drag occasionally during 6 MWT (Left) PT-OP-K Range of Motion Start: 07/27/18 11:43 Freq: Status: Active Protocol: Document 02/22/19 15:29 RCC (Rec: 02/22/19 17:13 RCC [email or web address]) Knee Goniometric Range of Motion Knee Measured in Degrees Left Flexion Active (degrees) 111 Flexion Passive (degrees) 119 PT-OP-L Special Tests Start: 07/27/18 11:43 Freq: Status: Active Protocol: Document 07/25/18 14:30 RCC (Rec: 07/27/18 15:47 RCC [email or web address]) Special Tests Lumbar Spine Special Tests Straight Leg Raise Test Results positive on the L @ 45 deg PT-OP-M Strength Start: 07/27/18 11:43 Freq: Status: Active Protocol: Document 02/14/19 16:00 RCC (Rec: 02/14/19 17:18 RCC [email or web address]) Knee Strength Knee Manual Muscle Testing Left Flexion (S2) 4+ Good+ Extension (L3) 4 Good PT-OP-Q Treatments Start: 07/27/18 11:43 Freq: Status: Active Protocol: Document 03/15/19 16:47 SA (Rec: 03/15/19 16:53 SA [email or web address]) Cardio Equipment Recumbent Elliptical (Biodex) Duration (Minutes) 10 Resistance 1 Seat Position 6 Gym Equipment Shuttle Recovery Unilateral Squats Resistance 25 lbs Shuttle Recovery Platform Stable Reps/Time 20 Bilateral Squats Resistance 50 lbs Shuttle Recovery Platform Stable Reps/Time 20 Therapeutic Exercises Supine Exercises SAQs Side left Resistance 2# Reps/Minutes 12x gravity assisted knee flex Reps/Minutes 8x Comments slider sheet, laying on shuttle leg press psoas and rectus femoris stretching Side left Comments manual for rectus; Left leg hanging off of table heel slide Side left Reps/Minutes 12x SLR Side bilateral Resistance 2# Reps/Minutes 10x each Sitting Exercises HS curls Side left Reps/Minutes 1x15 Manual Therapy Treatment Soft Tissue Mobilization scar tissue Body Location lateral L thigh Mobilization Type Other Intensity/Depth Moderate Body Position Hooklying Joint Mobilizations tibiofemoral Joint tibiofemoral Direction A/P tibia on femur Grade IV Body Position Supine PF Joint patellofemoral Direction medial, inf, superior Grade IV Body Position Supine PT-OP-R Modalities Start: 07/27/18 11:43 Freq: Status: Active Protocol: Document 03/15/19 16:53 (Rec: 03/15/19 16:54 SA [email or web address]) Hot Pack/Cold Pack Treatment Cold Pack Location Left knee Patient Position Supine Patient Tolerance Good PT-OP-T Assessment and Plan Start: 07/27/18 11:43 Freq: Status: Active Protocol: Document 03/15/19 16:47 SA (Rec: 03/15/19 16:53 SA [email or web address]) Physical Therapy Assessment Assessment Summary Assessment Pt with gradual improvement in exercise tolerance and L knee ROM. Physical Therapy Plan Next Visit Focus/Plan Next Note Type Treatment Note Next Visit Plan cont to advance L knee ROM, gait and LE stability
--- NOTE | 2019-03-20 15:36 | PT.OTN ---
Current Diagnoses Multiple sclerosis (03/20/19) Unspecified osteoarthritis, unspecified site (03/20/19) Physical Therapy Treatment Note PT-OP-A Visit Information Start: 07/27/18 11:43 Freq: Status: Active Protocol: Document 03/20/19 15:20 SA (Rec: 03/20/19 15:36 SA [email or web address]) Out-Patient Physical Therapy Visit Information Visit Information Visit Type Treatment Note Visit Note 04/29 Visit Start Time 14:40 Visit Stop Time 15:28 Total Visit Minutes 48 Visit Number 35 Number of TELEVISION REPAIRER Visits 3 PT-OP-B Current Condition Start: 07/27/18 11:43 Freq: Status: Active Protocol: Document 07/25/18 14:30 RCC (Rec: 07/27/18 11:58 RCC [email or web address]) Current Condition History of Current Condition Onset Date 2016 Current Complaints L knee pain/stiffness, low back pain, impaired mobility History of Current Condition Pt is a 83 y/o female presenting to physical therapy c/o L knee pain and stiffness , low back pain, andimpaired mobility. Pt has a h/o L distal femur fracture with ORIF 2016. 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 Pt has not fallen in the past 3+ months. Radiograph of lumbar spine showed compression fx's at T10, T12, L3 and L4, as well as grade 1 spondylolisthesis @ L4-5. Prior Treatments and Tests PT in past which she was d/c for multiple falls, unsafe to attend outpatient facility. Radiograph for spine showed compression fx @ T10, T12, L3 and L4. Treatment Goals Patient/Caregiver Goals improve mobility, decrease pain, improve function Prior Functional Status Baseline Function- ADL's Modified Independent Baseline Function- Mobility Modified Independent Baseline Function- Gait short distance outdoors indep. Baseline Function- Other pt was doing her own shopping prior to L distal femur fx and ORIF 07/2017 Current Functional Impairments (Reported) Functional Limitations- ADL's some assistance with cleaning Functional Limitations- Mobility/Gait modified indep. short outdoor gait on level surfaces only Personal Factors Other Personal Factors That May Effect Multiple Sclerosis, L distal Therapy/Recovery femur fx s/p ORIF 07/2017, h/o multiple falls, multiple compression fx's PT-OP-C Subjective Start: 07/27/18 11:43 Freq: Status: Active Protocol: Document 03/20/19 15:20 SA (Rec: 03/20/19 15:36 SA [email or web address]) OP-PT Subjective Patient Comments Patient Comments Pt feeling overall fatigued today, does state that the repetitive movement of the biodex feels good though. PT-OP-D Balance Start: 07/27/18 11:43 Freq: Status: Active Protocol: Document 12/26/18 15:20 RCC (Rec: 12/26/18 17:48 RCC [email or web address]) Balance Tests Single Limb Standing Single Limb- Right unable Single Limb- Left unable PT-OP-E Functional Tests Start: 07/27/18 11:43 Freq: Status: Active Protocol: Document 02/14/19 16:00 RCC (Rec: 02/14/19 17:18 RCC [email or web address]) Functional Tests 6 Minute Walk Test Distance 626 ft Device Used 4WW Comments 1.73 ft/sec PT-OP-F Manual Assessment Start: 07/27/18 11:43 Freq: Status: Active Protocol: Document 10/24/18 16:50 RCC (Rec: 10/24/18 17:04 RCC [email or web address]) Manual Assessments Joint Mobility Assessment Joint Mobility Assessment hypomobility L patellofemoral joint medial, inferior and superior glide PT-OP-G Mobility & Gait Start: 07/27/18 11:43 Freq: Status: Active Protocol: Document 02/14/19 16:00 RCC (Rec: 02/14/19 17:18 RCC [email or web address]) OP Gait Assessment Comments Gait Comments foot drag occasionally during 6 MWT (Left) PT-OP-K Range of Motion Start: 07/27/18 11:43 Freq: Status: Active Protocol: Document 02/22/19 15:29 RCC (Rec: 02/22/19 17:13 RCC [email or web address]) Knee Goniometric Range of Motion Knee Measured in Degrees Left Flexion Active (degrees) 111 Flexion Passive (degrees) 119 PT-OP-L Special Tests Start: 07/27/18 11:43 Freq: Status: Active Protocol: Document 07/25/18 14:30 RCC (Rec: 07/27/18 15:47 RCC [email or web address]) Special Tests Lumbar Spine Special Tests Straight Leg Raise Test Results positive on the L @ 45 deg PT-OP-M Strength Start: 07/27/18 11:43 Freq: Status: Active Protocol: Document 02/14/19 16:00 RCC (Rec: 02/14/19 17:18 RCC [email or web address]) Knee Strength Knee Manual Muscle Testing Left Flexion (S2) 4+ Good+ Extension (L3) 4 Good PT-OP-Q Treatments Start: 07/27/18 11:43 Freq: Status: Active Protocol: Document 03/20/19 15:20 SA (Rec: 03/20/19 15:36 SA [email or web address]) Cardio Equipment Recumbent Elliptical (Nixon) Duration (Minutes) 10 Resistance 2 Seat Position 6 Therapeutic Exercises Supine Exercises SAQs Side bilateral Resistance 2# Reps/Minutes 15x psoas and rectus femoris stretching Side left Reps/Minutes 30 x 2 Comments manual for rectus; Left leg hanging off of table heel slide Side bilateral Reps/Minutes 15x SLR Side bilateral Resistance 2# Reps/Minutes 10x each Prone Exercises prone quad stretch Side left Reps/Minutes 30 x 2 Comments manual Sidelying Exercises Clamshells Side bilateral Resistance 2# Reps/Minutes 10x each Manual Therapy Treatment Soft Tissue Mobilization L quadriceps Body Location L quadriceps Mobilization Type Myofascial Release Rolling Intensity/Depth Moderate Body Position Hooklying Joint Mobilizations tibiofemoral Joint tibiofemoral Direction A/P tibia on femur Grade IV Body Position Supine Comments left PF Joint patellofemoral Direction medial, inf, superior Grade IV Body Position Supine Comments left PT-OP-R Modalities Start: 07/27/18 11:43 Freq: Status: Active Protocol: Document 03/20/19 15:20 SA (Rec: 03/20/19 15:36 [email or web address]) Hot Pack/Cold Pack Treatment Cold Pack Location Left knee Patient Position Supine Treatment Duration (minutes) 10 Patient Tolerance Good PT-OP-T Assessment and Plan Start: 07/27/18 11:43 Freq: Status: Active Protocol: Document 03/20/19 15:20 SA (Rec: 03/20/19 15:36 SA [email or web address]) Physical Therapy Assessment Assessment Summary Assessment Pt with increased fatigue today, tolerated stretching and manual therapy well. Physical Therapy Plan Next Visit Focus/Plan Next Note Type Treatment Note Next Visit Plan Cont to progress L knee mobilizations, LE strengthening and gait training.
--- NOTE | 2019-04-10 14:40 | PT.OTRE ---
Current Diagnoses Multiple sclerosis (04/10/19) Unspecified osteoarthritis, unspecified site (04/10/19) Provider Visit Care Team Role Provider Type Blayne Sims MD Attending Provider Physician Family Provider Primary Care Provider Specialty: Internal Medicine Address: [address] [place] [address], [facility] Email: Physical Therapy Re-Evaluation PT-OP-A Visit Information Start: 07/27/18 11:43 Freq: Status: Active Protocol: Document 04/10/19 14:40 RCC (Rec: 04/11/19 13:25 RCC [email or web address]) Out-Patient Physical Therapy Visit Information Visit Information Visit Type Re-Evaluation Visit Start Time 14:40 Visit Stop Time 15:15 Total Visit Minutes 35 Visit Number 36 Number of WOLF HUNTER Visits 0 Evaluation Information Evaluation Date 07/25/18 Precautions Precautions fall risk/fall precautions, MS - careful not to overheat or fatigue PT-OP-B Current Condition Start: 07/27/18 11:43 Freq: Status: Active Protocol: Document 07/25/18 14:30 RCC (Rec: 07/27/18 11:58 RCC [email or web address]) Current Condition History of Current Condition Onset Date 2016 Current Complaints L knee pain/stiffness, low back pain, impaired mobility History of Current Condition Pt is a 83 y/o female presenting to physical therapy c/o L knee pain and stiffness , low back pain, andimpaired mobility. Pt has a h/o L distal femur fracture with ORIF 2016. 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 Pt has not fallen in the past 3+ months. Radiograph of lumbar spine showed compression fx's at T10, T12, L3 and L4, as well as grade 1 spondylolisthesis @ L4-5. Prior Treatments and Tests PT in past which she was d/c for multiple falls, unsafe to attend outpatient facility. Radiograph for spine showed compression fx @ T10, T12, L3 and L4. Treatment Goals Patient/Caregiver Goals improve mobility, decrease pain, improve function Prior Functional Status Baseline Function- ADL's Modified Independent Baseline Function- Mobility Modified Independent Baseline Function- Gait short distance outdoors indep. Baseline Function- Other pt was doing her own shopping prior to L distal femur fx and ORIF 07/2017 Current Functional Impairments (Reported) Functional Limitations- ADL's some assistance with cleaning Functional Limitations- Mobility/Gait modified indep. short outdoor gait on level surfaces only Personal Factors Other Personal Factors That May Effect Multiple Sclerosis, L distal Therapy/Recovery femur fx s/p ORIF 07/2017, h/o multiple falls, multiple compression fx's PT-OP-C Subjective Start: 07/27/18 11:43 Freq: Status: Active Protocol: Document 04/10/19 14:40 RCC (Rec: 04/11/19 13:25 RCC [email or web address]) OP-PT Subjective Patient Comments Patient Comments Pt has not been seen by PT since 03/20/2019, reports that she was moving into an assisted living and was unable to do her exercises, she is very stiff and is not sleeping well Patient Reported Progress Worse PT-OP-D Balance Start: 07/27/18 11:43 Freq: Status: Active Protocol: Document 12/26/18 15:20 RCC (Rec: 12/26/18 17:48 RCC [email or web address]) Balance Tests Single Limb Standing Single Limb- Right unable Single Limb- Left unable PT-OP-E Functional Tests Start: 07/27/18 11:43 Freq: Status: Active Protocol: Document 04/10/19 14:40 RCC (Rec: 04/11/19 13:25 RCC [email or web address]) Functional Tests 6 Minute Walk Test Distance 618 ft Device Used 4WW Comments 1.72 ft/sec PT-OP-F Manual Assessment Start: 07/27/18 11:43 Freq: Status: Active Protocol: Document 10/24/18 16:50 RCC (Rec: 10/24/18 17:04 RCC [email or web address]) Manual Assessments Joint Mobility Assessment Joint Mobility Assessment hypomobility L patellofemoral joint medial, inferior and superior glide PT-OP-G Mobility & Gait Start: 07/27/18 11:43 Freq: Status: Active Protocol: Document 02/14/19 16:00 RCC (Rec: 02/14/19 17:18 RCC [email or web address]) OP Gait Assessment Comments Gait Comments foot drag occasionally during 6 MWT (Left) PT-OP-K Range of Motion Start: 07/27/18 11:43 Freq: Status: Active Protocol: Document 04/10/19 14:40 RCC (Rec: 04/11/19 13:25 RCC [email or web address]) Knee Goniometric Range of Motion Knee Measured in Degrees Left Flexion Active (degrees) 95 Extension Active (degrees) 4 Knee ROM Limitations Comments L knee AROM- 108 degrees after manual therapy; PROM L knee flexion to 113 degrees after manual therapy PT-OP-L Special Tests Start: 07/27/18 11:43 Freq: Status: Active Protocol: Document 07/25/18 14:30 RCC (Rec: 07/27/18 15:47 RCC [email or web address]) Special Tests Lumbar Spine Special Tests Straight Leg Raise Test Results positive on the L @ 45 deg PT-OP-M Strength Start: 07/27/18 11:43 Freq: Status: Active Protocol: Document 04/10/19 14:40 RCC (Rec: 04/11/19 13:25 RCC [email or web address]) Knee Strength Knee Manual Muscle Testing Right Flexion (S2) 4+ Good+ Extension (L3) 4+ Good+ Left Flexion (S2) 4+ Good+ Extension (L3) 4 Good PT-OP-Q Treatments Start: 07/27/18 11:43 Freq: Status: Active Protocol: Document 04/10/19 14:40 RCC (Rec: 04/11/19 13:25 RCC [email or web address]) Cardio Equipment Recumbent Elliptical ([email or web address]) Duration (Minutes) 5 Resistance 1 Seat Position 6 PT-OP-R Modalities Start: 07/27/18 11:43 Freq: Status: Active Protocol: Document 03/20/19 15:20 SA (Rec: 03/20/19 15:36 SA [email or web address]) Hot Pack/Cold Pack Treatment Cold Pack Location Left knee Patient Position Supine Treatment Duration (minutes) 10 Patient Tolerance Good PT-OP-T Assessment and Plan Start: 07/27/18 11:43 Freq: Status: Active Protocol: Document 04/10/19 14:40 RCC (Rec: 04/11/19 13:25 RCC [email or web address]) Physical Therapy Assessment Goals LE weakness Impairment L knee flexion 4/5 with MMT Architectural Model Maker Goal (LTG) L knee flexion strength to at least 4+/5 with manual muscle testing prior to d/c. LTG Duration 8 weeks Five Impairment 6 Minute Walk Test- slow gait speed Short Term Goal (STG) Pt will ambulate with a gait speed of at least 1.90 ft/sec with the 6 Minute Walk Test. 04/10/19: no change (with 3 wks off PT) STG Duration 4 weeks Architectural Model Maker Goal (LTG) Pt will ambulate with a gait speed greater than 1.97 ft/sec during the 6 Minute Walk Test to decrease risk of future further decline in function. LTG Duration 8 weeks Four Impairment Gait/Timed Up and Go Short Term Goal (STG) Timed Up and Go to <30 seconds . 09/14/18: achieved STG Duration achieved Architectural Model Maker Goal (LTG) Timed Up and Go to <20 seconds to demonstrate improved gait speed, and decreasing fall risk. 09/14/18: achieved LTG Duration achieved Three Impairment L knee ROM Retirement Goal (LTG) 0-120 degrees of the L knee to improve gait and functional motion. 02/14/19: slow but continued progress 04/10/19: 4-95 AROM before session and 108 degrees L knee flexion after treatment LTG Duration 8 weeks Two Impairment pain in low back 7/10 Short Term Goal (STG) 5/10 pain reported in low back . 10/10/18: achieved STG Duration achieved Retirement Goal (LTG) 3/10 pain reported in low back or less to demonstrate improved thoracolumbar stability. 12/26/18: pain rated 2/10 or less in low back with all normal activities LTG Duration achieved One Impairment Lower Extremity Functional Scale (14/80) Short Term Goal (STG) Score: 20/80 10/10/18: goal achieved (23/80 ) STG Duration achieved Retirement Goal (LTG) Score: 25/80 or greater to demonstrate improvements with functional mobility. 12/26/18: 35/80. LTG Duration achieved Progress Towards Goals Progress Comments Pt with decreased L knee AROM and no change/somewhat worse 6 Minute Walk Test since last tested Assessment Summary Assessment Pt not seen in this clinic since 03/20/19, at which time she was going through a significant life change of selling her home and moving into assisted living. Pt unable to comply with her HEP due to this life change. Pt's L knee ROM significantly worse and no change to slightly worse distance covered with a timed 6 Minute Walk Test. When pt was attending physical therapy on a regular basis, she was making slow progress with ROM, gait and strength, considering the significance of her LLE injury and diagnosis of Multiple Sclerosis. The regression with her time off of outpatient physical therapy and inability to perform her HEP demonstrates the need for continued skilled physical therapy to progress her ROM, strength, and gait, and now that she is settled into a new place of residency, she can become more compliant with her HEP. Pt is a good candidate to regain the level of function she was at 3-4 weeks ago and still with the potential to progress beyond if she is able to attend physical therapy on a regular basis, which she is now scheduled for. Pt with loss of functional independence over the past 3 weeks which should potentially improve with skilled outpatient physical therapy. Physical Therapy Plan Frequency and Duration Frequency of Treatment 2x/Week Duration of Treatment 8 weeks Plan of Care Start Date 04/10/19 Plan of Care End Date 06/05/19 Therapeutic Interventions Therapeutic Interventions Aquatic Therapy Balance Training Gait Training Home Exercise Program Joint Mobilizations Manual Therapy Neuromuscular Re-education Patient/Caregiver Education Self-Care/Home Management Soft Tissue Mobilization Taping Therapeutic Activities Therapeutic Exercises Modalities Cold Pack/Ice Massage Electric Stimulation Ultrasound Next Visit Focus/Plan Next Note Type Treatment Note Next Visit Plan progress her L knee ROM, strength, and gait as tolerated.
--- NOTE | 2019-04-12 14:32 | PT.OTN ---
Current Diagnoses Multiple sclerosis (04/12/19) Unspecified osteoarthritis, unspecified site (04/12/19) Physical Therapy Treatment Note PT-OP-A Visit Information Start: 07/27/18 11:43 Freq: Status: Active Protocol: Document 04/12/19 14:32 [facility] (Rec: 04/12/19 16:22 [email or web address]) Out-Patient Physical Therapy Visit Information Visit Information Visit Type Treatment Note Visit Note 11/29 Visit Start Time 14:32 Visit Stop Time 15:20 Total Visit Minutes 52 Visit Number 37 Number of PRINCIPAL ACCOUNTS CLERK Visits 0 Evaluation Information Evaluation Date 07/25/18 Precautions Precautions fall risk/fall precautions, MS - careful not to overheat or fatigue PT-OP-B Current Condition Start: 07/27/18 11:43 Freq: Status: Active Protocol: Document 07/25/18 14:30 [facility] (Rec: 07/27/18 11:58 [facility] [email or web address]) Current Condition History of Current Condition Onset Date 2016 Current Complaints L knee pain/stiffness, low back pain, impaired mobility History of Current Condition Pt is a 83 y/o female presenting to physical therapy c/o L knee pain and stiffness , low back pain, andimpaired mobility. Pt has a h/o L distal femur fracture with ORIF 2016. 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 Pt has not fallen in the past 3+ months. Radiograph of lumbar spine showed compression fx's at T10, T12, L3 and L4, as well as grade 1 spondylolisthesis @ L4-5. Prior Treatments and Tests PT in past which she was d/c for multiple falls, unsafe to attend outpatient facility. Radiograph for spine showed compression fx @ T10, T12, L3 and L4. Treatment Goals Patient/Caregiver Goals improve mobility, decrease pain, improve function Prior Functional Status Baseline Function- ADL's Modified Independent Baseline Function- Mobility Modified Independent Baseline Function- Gait short distance outdoors indep. Baseline Function- Other pt was doing her own shopping prior to L distal femur fx and ORIF 07/2017 Current Functional Impairments (Reported) Functional Limitations- ADL's some assistance with cleaning Functional Limitations- Mobility/Gait modified indep. short outdoor gait on level surfaces only Personal Factors Other Personal Factors That May Effect Multiple Sclerosis, L distal Therapy/Recovery femur fx s/p ORIF 07/2017, h/o multiple falls, multiple compression fx's PT-OP-C Subjective Start: 07/27/18 11:43 Freq: Status: Active Protocol: Document 04/12/19 14:32 [facility] (Rec: 04/12/19 16:22 [facility] [email or web address]) OP-PT Subjective Patient Comments Patient Comments Pt reports she feels more rested today, less discomfort in the L knee. PT-OP-D Balance Start: 07/27/18 11:43 Freq: Status: Active Protocol: Document 12/26/18 15:20 [facility] (Rec: 12/26/18 17:48 [facility] [email or web address]) Balance Tests Single Limb Standing Single Limb- Right unable Single Limb- Left unable PT-OP-E Functional Tests Start: 07/27/18 11:43 Freq: Status: Active Protocol: Document 04/10/19 14:40 [facility] (Rec: 04/11/19 13:25 [facility] [email or web address]) Functional Tests 6 Minute Walk Test Distance 618 ft Device Used 4WW Comments 1.72 ft/sec PT-OP-F Manual Assessment Start: 07/27/18 11:43 Freq: Status: Active Protocol: Document 10/24/18 16:50 [facility] (Rec: 10/24/18 17:04 [facility] [email or web address]) Manual Assessments Joint Mobility Assessment Joint Mobility Assessment hypomobility L patellofemoral joint medial, inferior and superior glide PT-OP-G Mobility & Gait Start: 07/27/18 11:43 Freq: Status: Active Protocol: Document 02/14/19 16:00 [facility] (Rec: 02/14/19 17:18 [facility] [email or web address]) OP Gait Assessment Comments Gait Comments foot drag occasionally during 6 MWT (Left) PT-OP-K Range of Motion Start: 07/27/18 11:43 Freq: Status: Active Protocol: Document 04/12/19 14:32 [facility] (Rec: 04/12/19 16:22 [facility] [email or web address]) Knee Goniometric Range of Motion Knee Measured in Degrees Left Flexion Active (degrees) 98 Knee ROM Limitations Comments L knee AROM to 111 degrees flexion after manual therapy PT-OP-L Special Tests Start: 07/27/18 11:43 Freq: Status: Active Protocol: Document 07/25/18 14:30 [facility] (Rec: 07/27/18 15:47 [facility] [email or web address]) Special Tests Lumbar Spine Special Tests Straight Leg Raise Test Results positive on the L @ 45 deg PT-OP-M Strength Start: 07/27/18 11:43 Freq: Status: Active Protocol: Document 04/10/19 14:40 [facility] (Rec: 04/11/19 13:25 [facility] [email or web address]) Knee Strength Knee Manual Muscle Testing Right Flexion (S2) 4+ Good+ Extension (L3) 4+ Good+ Left Flexion (S2) 4+ Good+ Extension (L3) 4 Good PT-OP-Q Treatments Start: 07/27/18 11:43 Freq: Status: Active Protocol: Document 04/12/19 14:32 [facility] (Rec: 04/12/19 16:22 [facility] [email or web address]) Cardio Equipment Recumbent Elliptical ([employer]) Duration (Minutes) 8 Resistance 4 Seat Position 6 Gym Equipment Shuttle Recovery Bilateral Heel Raises Resistance 62 lbs Shuttle Recovery Platform Stable Reps/Time 20 Bilateral Squats Resistance 62 lbs Shuttle Recovery Platform Stable Reps/Time 20 Therapeutic Exercises Supine Exercises heel slide Side left Reps/Minutes 15x Gait Training Gait Activity gait in // bars Description gait Device Used // bars Surface level Treatment Focus L knee flexion ROM, push off L , arm swing Manual Therapy Treatment Soft Tissue Mobilization L quadriceps Body Location L quadriceps Mobilization Type Myofascial Release Rolling Intensity/Depth Moderate Body Position Hooklying Joint Mobilizations PF Joint patellofemoral Direction medial, inf, superior Grade IV Body Position Supine Comments left PT-OP-R Modalities Start: 07/27/18 11:43 Freq: Status: Active Protocol: Document 04/12/19 14:32 [facility] (Rec: 04/12/19 16:23 [facility] [email or web address]) Hot Pack/Cold Pack Treatment Cold Pack Location Left knee Patient Position Supine Treatment Duration (minutes) 10 Patient Tolerance Good PT-OP-T Assessment and Plan Start: 07/27/18 11:43 Freq: Status: Active Protocol: Document 04/12/19 14:32 [facility] (Rec: 04/12/19 16:22 [facility] [email or web address]) Physical Therapy Assessment Assessment Summary Assessment Pt still with limited L knee flexion with transition from initial contact to further stance phase, and limited push off on the L. Pt's ROM improved today after treatment to 111 degrees AROM of L knee flexion, and tolerated increased resistance on recumbent stepper and Shuttle leg press. Physical Therapy Plan Frequency and Duration Frequency of Treatment 2x/Week Duration of Treatment 8 weeks Plan of Care Start Date 04/10/19 Plan of Care End Date 06/05/19 Next Visit Focus/Plan Next Note Type Treatment Note Next Visit Plan cont to advance gastroc/soleus and quad strength, L knee ROM
--- NOTE | 2019-04-17 14:30 | PT.OTN ---
Current Diagnoses Multiple sclerosis (04/17/19) Unspecified osteoarthritis, unspecified site (04/17/19) Physical Therapy Treatment Note PT-OP-A Visit Information Start: 07/27/18 11:43 Freq: Status: Active Protocol: Document 04/17/19 14:30 [facility] (Rec: 04/17/19 16:38 [facility] [email or web address]) Out-Patient Physical Therapy Visit Information Visit Information Visit Type Treatment Note Visit Note 12/30 Visit Start Time 14:30 Visit Stop Time 15:25 Total Visit Minutes 55 Visit Number 38 Number of PLASTERER APPRENTICE Visits 0 Evaluation Information Evaluation Date 07/25/18 Precautions Precautions fall risk/fall precautions, MS - careful not to overheat or fatigue PT-OP-B Current Condition Start: 07/27/18 11:43 Freq: Status: Active Protocol: Document 07/25/18 14:30 [facility] (Rec: 07/27/18 11:58 [facility] [email or web address]) Current Condition History of Current Condition Onset Date 2016 Current Complaints L knee pain/stiffness, low back pain, impaired mobility History of Current Condition Pt is a 83 y/o female presenting to physical therapy c/o L knee pain and stiffness , low back pain, andimpaired mobility. Pt has a h/o L distal femur fracture with ORIF 2016. 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 Pt has not fallen in the past 3+ months. Radiograph of lumbar spine showed compression fx's at T10, T12, L3 and L4, as well as grade 1 spondylolisthesis @ L4-5. Prior Treatments and Tests PT in past which she was d/c for multiple falls, unsafe to attend outpatient facility. Radiograph for spine showed compression fx @ T10, T12, L3 and L4. Treatment Goals Patient/Caregiver Goals improve mobility, decrease pain, improve function Prior Functional Status Baseline Function- ADL's Modified Independent Baseline Function- Mobility Modified Independent Baseline Function- Gait short distance outdoors indep. Baseline Function- Other pt was doing her own shopping prior to L distal femur fx and ORIF 07/2017 Current Functional Impairments (Reported) Functional Limitations- ADL's some assistance with cleaning Functional Limitations- Mobility/Gait modified indep. short outdoor gait on level surfaces only Personal Factors Other Personal Factors That May Effect Multiple Sclerosis, L distal Therapy/Recovery femur fx s/p ORIF 07/2017, h/o multiple falls, multiple compression fx's PT-OP-C Subjective Start: 07/27/18 11:43 Freq: Status: Active Protocol: Document 04/17/19 14:30 [facility] (Rec: 04/17/19 16:38 [facility] [email or web address]) OP-PT Subjective Patient Comments Patient Comments Pt reports that today she feels like she is moving a lot better. PT-OP-D Balance Start: 07/27/18 11:43 Freq: Status: Active Protocol: Document 12/26/18 15:20 [facility] (Rec: 12/26/18 17:48 [facility] [email or web address]) Balance Tests Single Limb Standing Single Limb- Right unable Single Limb- Left unable PT-OP-E Functional Tests Start: 07/27/18 11:43 Freq: Status: Active Protocol: Document 04/10/19 14:40 [facility] (Rec: 04/11/19 13:25 [facility] [email or web address]) Functional Tests 6 Minute Walk Test Distance 618 ft Device Used 4WW Comments 1.72 ft/sec PT-OP-F Manual Assessment Start: 07/27/18 11:43 Freq: Status: Active Protocol: Document 10/24/18 16:50 [facility] (Rec: 10/24/18 17:04 [facility] [email or web address]) Manual Assessments Joint Mobility Assessment Joint Mobility Assessment hypomobility L patellofemoral joint medial, inferior and superior glide PT-OP-G Mobility & Gait Start: 07/27/18 11:43 Freq: Status: Active Protocol: Document 02/14/19 16:00 [facility] (Rec: 02/14/19 17:18 [facility] [email or web address]) OP Gait Assessment Comments Gait Comments foot drag occasionally during 6 MWT (Left) PT-OP-K Range of Motion Start: 07/27/18 11:43 Freq: Status: Active Protocol: Document 04/17/19 14:30 [facility] (Rec: 04/17/19 16:38 [facility] [email or web address]) Knee Goniometric Range of Motion Knee Measured in Degrees Left Flexion Active (degrees) 109 Extension Active (degrees) 1 PT-OP-L Special Tests Start: 07/27/18 11:43 Freq: Status: Active Protocol: Document 07/25/18 14:30 [facility] (Rec: 07/27/18 15:47 [facility] [email or web address]) Special Tests Lumbar Spine Special Tests Straight Leg Raise Test Results positive on the L @ 45 deg PT-OP-M Strength Start: 07/27/18 11:43 Freq: Status: Active Protocol: Document 04/10/19 14:40 [facility] (Rec: 04/11/19 13:25 [facility] [email or web address]) Knee Strength Knee Manual Muscle Testing Right Flexion (S2) 4+ Good+ Extension (L3) 4+ Good+ Left Flexion (S2) 4+ Good+ Extension (L3) 4 Good PT-OP-Q Treatments Start: 07/27/18 11:43 Freq: Status: Active Protocol: Document 04/17/19 14:30 [facility] (Rec: 04/17/19 16:38 [facility] [email or web address]) Cardio Equipment Recumbent Elliptical ([employer]) Duration (Minutes) 8 Resistance 1-3 Seat Position 6 Gym Equipment Shuttle Recovery Unilateral Squats Resistance 50 lbs Shuttle Recovery Platform Stable Reps/Time 2x10 Bilateral Squats Resistance 62 lbs Shuttle Recovery Platform Stable Reps/Time 2x20 Therapeutic Exercises Standing Exercises TKE Side left Resistance L3 Reps/Minutes x30 Gait Training Gait Activity gait in // bars Description gait Device Used // bars Surface level Treatment Focus L knee flexion ROM, push off L , arm swing Manual Therapy Treatment Soft Tissue Mobilization L quadriceps Body Location L quadriceps Mobilization Type Myofascial Release Rolling Intensity/Depth Moderate Body Position Hooklying Joint Mobilizations PF Joint patellofemoral Direction medial, inf, superior Grade IV Body Position Supine Comments left PT-OP-R Modalities Start: 07/27/18 11:43 Freq: Status: Active Protocol: Document 04/17/19 14:30 [facility] (Rec: 04/17/19 16:38 [facility] [email or web address]) Hot Pack/Cold Pack Treatment Cold Pack Location Left knee Patient Position Supine Treatment Duration (minutes) 10 Patient Tolerance Good PT-OP-T Assessment and Plan Start: 07/27/18 11:43 Freq: Status: Active Protocol: Document 04/17/19 14:30 [facility] (Rec: 04/17/19 16:38 [facility] [email or web address]) Physical Therapy Assessment Assessment Summary Assessment Pt's AROM 1-109 degrees prior to manual therapy. She tolerated another increase in leg press resistance without c /o pain. Physical Therapy Plan Frequency and Duration Frequency of Treatment 2x/Week Duration of Treatment 8 weeks Plan of Care Start Date 04/10/19 Plan of Care End Date 06/05/19 Next Visit Focus/Plan Next Note Type Treatment Note Next Visit Plan cont to progress L knee ROM and strength as tolerated.
--- NOTE | 2019-04-25 14:40 | PT.OTN ---
Current Diagnoses Multiple sclerosis (04/25/19) Unspecified osteoarthritis, unspecified site (04/25/19) Physical Therapy Treatment Note PT-OP-A Visit Information Start: 07/27/18 11:43 Freq: Status: Active Protocol: Document 04/25/19 14:40 [facility] (Rec: 04/26/19 09:36 [facility] [email or web address]) Out-Patient Physical Therapy Visit Information Visit Information Visit Type Treatment Note Visit Note 01/27 Visit Start Time 14:40 Visit Stop Time 15:30 Total Visit Minutes 55 Visit Number 39 Number of FLAVORING MACHINE OPERATOR Visits 0 Evaluation Information Evaluation Date 07/25/18 Precautions Precautions fall risk/fall precautions, MS - careful not to overheat or fatigue PT-OP-B Current Condition Start: 07/27/18 11:43 Freq: Status: Active Protocol: Document 07/25/18 14:30 [facility] (Rec: 07/27/18 11:58 [facility] [email or web address]) Current Condition History of Current Condition Onset Date 2016 Current Complaints L knee pain/stiffness, low back pain, impaired mobility History of Current Condition Pt is a 83 y/o female presenting to physical therapy c/o L knee pain and stiffness , low back pain, andimpaired mobility. Pt has a h/o L distal femur fracture with ORIF 2016. 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 Pt has not fallen in the past 3+ months. Radiograph of lumbar spine showed compression fx's at T10, T12, L3 and L4, as well as grade 1 spondylolisthesis @ L4-5. Prior Treatments and Tests PT in past which she was d/c for multiple falls, unsafe to attend outpatient facility. Radiograph for spine showed compression fx @ T10, T12, L3 and L4. Treatment Goals Patient/Caregiver Goals improve mobility, decrease pain, improve function Prior Functional Status Baseline Function- ADL's Modified Independent Baseline Function- Mobility Modified Independent Baseline Function- Gait short distance outdoors indep. Baseline Function- Other pt was doing her own shopping prior to L distal femur fx and ORIF 07/2017 Current Functional Impairments (Reported) Functional Limitations- ADL's some assistance with cleaning Functional Limitations- Mobility/Gait modified indep. short outdoor gait on level surfaces only Personal Factors Other Personal Factors That May Effect Multiple Sclerosis, L distal Therapy/Recovery femur fx s/p ORIF 07/2017, h/o multiple falls, multiple compression fx's PT-OP-C Subjective Start: 07/27/18 11:43 Freq: Status: Active Protocol: Document 04/25/19 14:40 [facility] (Rec: 04/26/19 09:36 [facility] [email or web address]) OP-PT Subjective Patient Comments Patient Comments Pt reports she had 2 days of feeling very weak, she attributes to her MS. She has been able to use the NuStep at her new place of residency. PT-OP-D Balance Start: 07/27/18 11:43 Freq: Status: Active Protocol: Document 12/26/18 15:20 [facility] (Rec: 12/26/18 17:48 [facility] [email or web address]) Balance Tests Single Limb Standing Single Limb- Right unable Single Limb- Left unable PT-OP-E Functional Tests Start: 07/27/18 11:43 Freq: Status: Active Protocol: Document 04/10/19 14:40 [facility] (Rec: 04/11/19 13:25 [facility] [email or web address]) Functional Tests 6 Minute Walk Test Distance 618 ft Device Used 4WW Comments 1.72 ft/sec PT-OP-F Manual Assessment Start: 07/27/18 11:43 Freq: Status: Active Protocol: Document 10/24/18 16:50 [facility] (Rec: 10/24/18 17:04 [facility] [email or web address]) Manual Assessments Joint Mobility Assessment Joint Mobility Assessment hypomobility L patellofemoral joint medial, inferior and superior glide PT-OP-G Mobility & Gait Start: 07/27/18 11:43 Freq: Status: Active Protocol: Document 02/14/19 16:00 [facility] (Rec: 02/14/19 17:18 [facility] [email or web address]) OP Gait Assessment Comments Gait Comments foot drag occasionally during 6 MWT (Left) PT-OP-K Range of Motion Start: 07/27/18 11:43 Freq: Status: Active Protocol: Document 04/25/19 14:40 [facility] (Rec: 04/26/19 09:36 [facility] [email or web address]) Knee Goniometric Range of Motion Knee Measured in Degrees Left Flexion Active (degrees) 110 Extension Active (degrees) 1 Knee ROM Limitations Comments L knee AROM flexion to 114 deg after manual therapy PT-OP-L Special Tests Start: 07/27/18 11:43 Freq: Status: Active Protocol: Document 07/25/18 14:30 [facility] (Rec: 07/27/18 15:47 [facility] [email or web address]) Special Tests Lumbar Spine Special Tests Straight Leg Raise Test Results positive on the L @ 45 deg PT-OP-M Strength Start: 07/27/18 11:43 Freq: Status: Active Protocol: Document 04/10/19 14:40 [facility] (Rec: 04/11/19 13:25 [facility] [email or web address]) Knee Strength Knee Manual Muscle Testing Right Flexion (S2) 4+ Good+ Extension (L3) 4+ Good+ Left Flexion (S2) 4+ Good+ Extension (L3) 4 Good PT-OP-Q Treatments Start: 07/27/18 11:43 Freq: Status: Active Protocol: Document 04/25/19 14:40 [facility] (Rec: 04/26/19 09:36 [facility] [email or web address]) Cardio Equipment Recumbent Elliptical ([employer]) Duration (Minutes) 8 Resistance 1-3 Seat Position 6 Gym Equipment Shuttle Recovery Bilateral Heel Raises Resistance 62 lbs Shuttle Recovery Platform Stable Reps/Time 20 Unilateral Squats Resistance 50 lbs Shuttle Recovery Platform Stable Reps/Time 2x10 Bilateral Squats Resistance 62 lbs Shuttle Recovery Platform Stable Reps/Time 2x20 Therapeutic Exercises Supine Exercises heel slide Side left Reps/Minutes 15x Manual Therapy Treatment Soft Tissue Mobilization L quadriceps Body Location L quadriceps Mobilization Type Myofascial Release Rolling Intensity/Depth Moderate Body Position Hooklying Joint Mobilizations PF Joint patellofemoral Direction medial, inf, superior Grade IV Body Position Supine Comments left PT-OP-R Modalities Start: 07/27/18 11:43 Freq: Status: Active Protocol: Document 04/25/19 14:40 [facility] (Rec: 04/26/19 09:36 [facility] [email or web address]) Hot Pack/Cold Pack Treatment Cold Pack Location Left knee Patient Position Supine Treatment Duration (minutes) 10 Patient Tolerance Good PT-OP-T Assessment and Plan Start: 07/27/18 11:43 Freq: Status: Active Protocol: Document 04/25/19 14:40 [facility] (Rec: 04/26/19 09:36 [facility] [email or web address]) Physical Therapy Assessment Assessment Summary Assessment Pt able to increase L knee flexion AROM to 114 degrees after PF mobilizations today, as well as STR to the L quadriceps. Pt's progress has been very slow, but due to multiple co-morbidities including MS, not unexpected. Physical Therapy Plan Frequency and Duration Frequency of Treatment 2x/Week Duration of Treatment 8 weeks Plan of Care Start Date 04/10/19 Plan of Care End Date 06/05/19 Next Visit Focus/Plan Next Note Type Treatment Note Next Visit Plan prog L knee ROM, quad stretching
--- NOTE | 2019-05-01 14:16 | PT.OTN ---
Current Diagnoses Multiple sclerosis (05/01/19) Unspecified osteoarthritis, unspecified site (05/01/19) Physical Therapy Treatment Note PT-OP-A Visit Information Start: 07/27/18 11:43 Freq: Status: Active Protocol: Document 05/01/19 14:07 [facility] (Rec: 05/01/19 14:15 [facility] [email or web address]) Out-Patient Physical Therapy Visit Information Visit Information Visit Type Treatment Note Visit Note 02/27 Visit Start Time 13:00 Visit Stop Time 13:45 Total Visit Minutes 45 Visit Number 40 Number of ASSOCIATE STORE DIRECTOR Visits 0 PT-OP-B Current Condition Start: 07/27/18 11:43 Freq: Status: Active Protocol: Document 07/25/18 14:30 RCC (Rec: 07/27/18 11:58 [facility] [email or web address]) Current Condition History of Current Condition Onset Date 2016 Current Complaints L knee pain/stiffness, low back pain, impaired mobility History of Current Condition Pt is a 83 y/o female presenting to physical therapy c/o L knee pain and stiffness , low back pain, andimpaired mobility. Pt has a h/o L distal femur fracture with ORIF 2016. 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 Pt has not fallen in the past 3+ months. Radiograph of lumbar spine showed compression fx's at T10, T12, L3 and L4, as well as grade 1 spondylolisthesis @ L4-5. Prior Treatments and Tests PT in past which she was d/c for multiple falls, unsafe to attend outpatient facility. Radiograph for spine showed compression fx @ T10, T12, L3 and L4. Treatment Goals Patient/Caregiver Goals improve mobility, decrease pain, improve function Prior Functional Status Baseline Function- ADL's Modified Independent Baseline Function- Mobility Modified Independent Baseline Function- Gait short distance outdoors indep. Baseline Function- Other pt was doing her own shopping prior to L distal femur fx and ORIF 07/2017 Current Functional Impairments (Reported) Functional Limitations- ADL's some assistance with cleaning Functional Limitations- Mobility/Gait modified indep. short outdoor gait on level surfaces only Personal Factors Other Personal Factors That May Effect Multiple Sclerosis, L distal Therapy/Recovery femur fx s/p ORIF 07/2017, h/o multiple falls, multiple compression fx's PT-OP-C Subjective Start: 07/27/18 11:43 Freq: Status: Active Protocol: Document 05/01/19 14:07 [facility] (Rec: 05/01/19 14:15 [facility] [email or web address]) OP-PT Subjective Patient Comments Patient Comments pt reports she didn't wear clothing to exercise in as she came straight from a lunch today. She is doing better overall with her knee than when she started and reports less pain PT-OP-D Balance Start: 07/27/18 11:43 Freq: Status: Active Protocol: Document 12/26/18 15:20 RCC (Rec: 12/26/18 17:48 [facility] [email or web address]) Balance Tests Single Limb Standing Single Limb- Right unable Single Limb- Left unable PT-OP-E Functional Tests Start: 07/27/18 11:43 Freq: Status: Active Protocol: Document 04/10/19 14:40 RCC (Rec: 04/11/19 13:25 [facility] [email or web address]) Functional Tests 6 Minute Walk Test Distance 618 ft Device Used 4WW Comments 1.72 ft/sec PT-OP-F Manual Assessment Start: 07/27/18 11:43 Freq: Status: Active Protocol: Document 10/24/18 16:50 RCC (Rec: 10/24/18 17:04 RCC [email or web address]) Manual Assessments Joint Mobility Assessment Joint Mobility Assessment hypomobility L patellofemoral joint medial, inferior and superior glide PT-OP-G Mobility & Gait Start: 07/27/18 11:43 Freq: Status: Active Protocol: Document 02/14/19 16:00 RCC (Rec: 02/14/19 17:18 [facility] [email or web address]) OP Gait Assessment Comments Gait Comments foot drag occasionally during 6 MWT (Left) PT-OP-K Range of Motion Start: 07/27/18 11:43 Freq: Status: Active Protocol: Document 05/01/19 14:07 [facility] (Rec: 05/01/19 14:15 [facility] [email or web address]) Knee Goniometric Range of Motion Knee Measured in Degrees Left Flexion Active (degrees) 110 Extension Active (degrees) 1 PT-OP-L Special Tests Start: 07/27/18 11:43 Freq: Status: Active Protocol: Document 07/25/18 14:30 RCC (Rec: 07/27/18 15:47 [facility] [email or web address]) Special Tests Lumbar Spine Special Tests Straight Leg Raise Test Results positive on the L @ 45 deg PT-OP-M Strength Start: 07/27/18 11:43 Freq: Status: Active Protocol: Document 04/10/19 14:40 RCC (Rec: 04/11/19 13:25 [facility] [email or web address]) Knee Strength Knee Manual Muscle Testing Right Flexion (S2) 4+ Good+ Extension (L3) 4+ Good+ Left Flexion (S2) 4+ Good+ Extension (L3) 4 Good PT-OP-Q Treatments Start: 07/27/18 11:43 Freq: Status: Active Protocol: Document 05/01/19 14:07 [facility] (Rec: 05/01/19 14:15 [facility] [email or web address]) Cardio Equipment Recumbent Elliptical ([employer]ocix) Duration (Minutes) 8 Resistance 1-3 Seat Position 6 Gym Equipment Shuttle Recovery Bilateral Heel Raises Resistance 62 lbs Shuttle Recovery Platform Stable Reps/Time 20 Unilateral Squats Resistance 50 lbs Shuttle Recovery Platform Stable Reps/Time 2x10 Bilateral Squats Resistance 62 lbs Shuttle Recovery Platform Stable Reps/Time 2x20 Therapeutic Exercises Supine Exercises SAQs Side bilateral Resistance 2# Reps/Minutes 15x psoas and rectus femoris stretching Side left Reps/Minutes 30 x 2 Comments manual for rectus; Left leg hanging off of table heel slide Side left Reps/Minutes 15x SLR Side bilateral Resistance 2# Reps/Minutes 10x each Bridging Supine Exercise Name bridging Side bilateral Reps/Minutes 10 LTR Supine Exercise Name lower trunk rotation Side bilateral Equipment Used 55 cm ball Reps/Minutes 10 each direction DKC Supine Exercise Name SKTC Reps/Minutes 6 x 10 QS Supine Exercise Name quad set Side left Manual Therapy Treatment Soft Tissue Mobilization L quadriceps Body Location L quadriceps Mobilization Type Myofascial Release Rolling Intensity/Depth Moderate Body Position Hooklying Joint Mobilizations PF Joint patellofemoral Direction medial, inf, superior Grade IV Body Position Supine Comments left PT-OP-R Modalities Start: 07/27/18 11:43 Freq: Status: Active Protocol: Document 04/25/19 14:40 RCC (Rec: 04/26/19 09:36 RCC [email or web address]) Hot Pack/Cold Pack Treatment Cold Pack Location Left knee Patient Position Supine Treatment Duration (minutes) 10 Patient Tolerance Good PT-OP-T Assessment and Plan Start: 07/27/18 11:43 Freq: Status: Active Protocol: Document 05/01/19 14:07 [facility] (Rec: 05/01/19 14:15 [facility] [email or web address]) Physical Therapy Assessment Assessment Summary Assessment knee ROM was at 110 deg left today, Dorothy reports her knee felt a little tightner today. Decreased pain with shuttle squats Physical Therapy Plan Frequency and Duration Frequency of Treatment 2x/Week Duration of Treatment 8 weeks Plan of Care Start Date 04/10/19 Plan of Care End Date 06/05/19 Next Visit Focus/Plan Next Note Type Treatment Note Next Visit Plan prog L knee ROM, quad stretching
--- NOTE | 2019-05-03 14:30 | PT.OTN ---
Current Diagnoses Multiple sclerosis (05/03/19) Unspecified osteoarthritis, unspecified site (05/03/19) Physical Therapy Treatment Note PT-OP-A Visit Information Start: 07/27/18 11:43 Freq: Status: Active Protocol: Document 05/03/19 14:30 RCC (Rec: 05/04/19 11:08 RCC [email or web address]) Out-Patient Physical Therapy Visit Information Visit Information Visit Type Treatment Note Visit Start Time 14:30 Visit Stop Time 15:20 Total Visit Minutes 50 Visit Number 41 Number of PAN DEVULCANIZER HELPER Visits 0 Evaluation Information Evaluation Date 07/25/18 Precautions Precautions fall risk/fall precautions, MS - careful not to overheat or fatigue PT-OP-B Current Condition Start: 07/27/18 11:43 Freq: Status: Active Protocol: Document 07/25/18 14:30 RCC (Rec: 07/27/18 11:58 RCC [email or web address]) Current Condition History of Current Condition Onset Date 2016 Current Complaints L knee pain/stiffness, low back pain, impaired mobility History of Current Condition Pt is a 83 y/o female presenting to physical therapy c/o L knee pain and stiffness , low back pain, andimpaired mobility. Pt has a h/o L distal femur fracture with ORIF 2016. 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 Pt has not fallen in the past 3+ months. Radiograph of lumbar spine showed compression fx's at T10, T12, L3 and L4, as well as grade 1 spondylolisthesis @ L4-5. Prior Treatments and Tests PT in past which she was d/c for multiple falls, unsafe to attend outpatient facility. Radiograph for spine showed compression fx @ T10, T12, L3 and L4. Treatment Goals Patient/Caregiver Goals improve mobility, decrease pain, improve function Prior Functional Status Baseline Function- ADL's Modified Independent Baseline Function- Mobility Modified Independent Baseline Function- Gait short distance outdoors indep. Baseline Function- Other pt was doing her own shopping prior to L distal femur fx and ORIF 07/2017 Current Functional Impairments (Reported) Functional Limitations- ADL's some assistance with cleaning Functional Limitations- Mobility/Gait modified indep. short outdoor gait on level surfaces only Personal Factors Other Personal Factors That May Effect Multiple Sclerosis, L distal Therapy/Recovery femur fx s/p ORIF 07/2017, h/o multiple falls, multiple compression fx's PT-OP-C Subjective Start: 07/27/18 11:43 Freq: Status: Active Protocol: Document 05/03/19 14:30 RCC (Rec: 05/04/19 11:08 RCC [email or web address]) OP-PT Subjective Patient Comments Patient Comments Pt reports she is having an off week likely due to her MS . She is riding the bike almost every day at [employer]. PT-OP-D Balance Start: 07/27/18 11:43 Freq: Status: Active Protocol: Document 12/26/18 15:20 RCC (Rec: 12/26/18 17:48 RCC [email or web address]) Balance Tests Single Limb Standing Single Limb- Right unable Single Limb- Left unable PT-OP-E Functional Tests Start: 07/27/18 11:43 Freq: Status: Active Protocol: Document 04/10/19 14:40 RCC (Rec: 04/11/19 13:25 RCC [email or web address]) Functional Tests 6 Minute Walk Test Distance 618 ft Device Used 4WW Comments 1.72 ft/sec PT-OP-F Manual Assessment Start: 07/27/18 11:43 Freq: Status: Active Protocol: Document 10/24/18 16:50 RCC (Rec: 10/24/18 17:04 RCC [email or web address]) Manual Assessments Joint Mobility Assessment Joint Mobility Assessment hypomobility L patellofemoral joint medial, inferior and superior glide PT-OP-G Mobility & Gait Start: 07/27/18 11:43 Freq: Status: Active Protocol: Document 02/14/19 16:00 RCC (Rec: 02/14/19 17:18 RCC [email or web address]) OP Gait Assessment Comments Gait Comments foot drag occasionally during 6 MWT (Left) PT-OP-K Range of Motion Start: 07/27/18 11:43 Freq: Status: Active Protocol: Document 05/03/19 14:30 RCC (Rec: 05/04/19 11:08 RCC [email or web address]) Knee Goniometric Range of Motion Knee Left Flexion Active (degrees) 113 Extension Active (degrees) 1 PT-OP-L Special Tests Start: 07/27/18 11:43 Freq: Status: Active Protocol: Document 07/25/18 14:30 RCC (Rec: 07/27/18 15:47 RCC [email or web address]) Special Tests Lumbar Spine Special Tests Straight Leg Raise Test Results positive on the L @ 45 deg PT-OP-M Strength Start: 07/27/18 11:43 Freq: Status: Active Protocol: Document 05/03/19 14:30 RCC (Rec: 05/04/19 11:08 [facility] [email or web address]) Hip Strength Hip Manual Muscle Testing Left Flexion (L2) 4 Good Right Flexion (L2) 4+ Good+ Knee Strength Knee Manual Muscle Testing Right Flexion (S2) 4+ Good+ Extension (L3) 5 Normal Left Flexion (S2) 4+ Good+ Extension (L3) 4+ Good+ PT-OP-Q Treatments Start: 07/27/18 11:43 Freq: Status: Active Protocol: Document 05/03/19 14:30 RCC (Rec: 05/04/19 11:08 [facility] [email or web address]) Cardio Equipment Recumbent Elliptical ([employer]) Duration (Minutes) 8 Resistance 1 Seat Position 6 Gym Equipment Shuttle Recovery Unilateral Squats Resistance 50 lbs Shuttle Recovery Platform Stable Reps/Time 2x10 Bilateral Squats Resistance 62 lbs Shuttle Recovery Platform Stable Reps/Time 2x20 Therapeutic Exercises Supine Exercises psoas and rectus femoris stretching Side left Reps/Minutes 30 x 2 Comments manual for rectus; Left leg hanging off of table heel slide Side left Reps/Minutes 15x Manual Therapy Treatment Soft Tissue Mobilization L quadriceps Body Location L quadriceps Mobilization Type Myofascial Release Rolling Intensity/Depth Moderate Body Position Hooklying Joint Mobilizations PF Joint patellofemoral Direction medial, inf, superior Grade IV Body Position Supine Comments left PT-OP-R Modalities Start: 07/27/18 11:43 Freq: Status: Active Protocol: Document 05/03/19 14:30 RCC (Rec: 05/04/19 11:08 [facility] [email or web address]) Hot Pack/Cold Pack Treatment Cold Pack Location Left knee Patient Position Supine Treatment Duration (minutes) 10 Patient Tolerance Good PT-OP-T Assessment and Plan Start: 07/27/18 11:43 Freq: Status: Active Protocol: Document 05/03/19 14:30 RCC (Rec: 05/04/19 11:08 [facility] [email or web address]) Physical Therapy Assessment Goals LE weakness Impairment L knee flexion 4/5 with MMT Alf Goal (LTG) L knee flexion strength to at least 4+/5 with manual muscle testing prior to d/c. LTG Duration achieved Five Impairment 6 Minute Walk Test- slow gait speed Short Term Goal (STG) Pt will ambulate with a gait speed of at least 1.90 ft/sec with the 6 Minute Walk Test. 04/10/19: no change (with 3 wks off PT) not tested 05/04/19 STG Duration 4 weeks Oil Burner Goal (LTG) Pt will ambulate with a gait speed greater than 1.97 ft/sec during the 6 Minute Walk Test to decrease risk of future further decline in function. LTG Duration 8 weeks Four Impairment Gait/Timed Up and Go Short Term Goal (STG) Timed Up and Go to <30 seconds . 09/14/18: achieved STG Duration achieved Alf Goal (LTG) Timed Up and Go to <20 seconds to demonstrate improved gait speed, and decreasing fall risk. 09/14/18: achieved LTG Duration achieved Three Impairment L knee ROM Oil Burner Goal (LTG) 0-120 degrees of the L knee to improve gait and functional motion. 02/14/19: slow but continued progress 04/10/19: 4-95 AROM before session and 108 degrees L knee flexion after treatment 05/03/19: 1-113 deg AROM L knee - some progress LTG Duration 8 weeks Two Impairment pain in low back 7/10 Short Term Goal (STG) 5/10 pain reported in low back . 10/10/18: achieved STG Duration achieved Alf Goal (LTG) 3/10 pain reported in low back or less to demonstrate improved thoracolumbar stability. 12/26/18: pain rated 2/10 or less in low back with all normal activities LTG Duration achieved One Impairment Lower Extremity Functional Scale (14/80) Short Term Goal (STG) Score: 20/80 10/10/18: goal achieved (23/80 ) STG Duration achieved Alf Goal (LTG) Score: 25/80 or greater to demonstrate improvements with functional mobility. 12/26/18: 35/80. LTG Duration achieved Progress Towards Goals Progress Towards Goals Slow Progress due to Activity Tolerance Slow Progress due to Medical Issues Slow Progress - Other Assessment Summary Assessment Pt's L knee flexion AROM to 113 degrees today, but still with evident tension in the rectus femoris and quadriceps musculature. Pt's low back pain has diminished significantly since initiation of physical therapy. She continues to have some days/ weeks that she cannot tolerate as much physical activity, likely due to MS, but she remains motivated to improve and continue. Pt is requesting d/c from this facility, in hopes that she can attend physical therapy at the new location that this physical therapist will be working. Plan to d/c the pt at this time, and if medically necessary deemed by her PCP, she will require a new referral for skilled physical therapy. Physical Therapy Plan Discharge Physical Therapy Discharge Reasons Patient Request Discharge Comments physical therapist is changing clinic locations.
== END 2019-05-07 16:17 | disposition home or self-care (01) ==
LOC: PHYS 14:30
PROVIDERS: Family Provider Internal Medicine; PCP Internal Medicine; Visit Provider Internal Medicine
DX: M19.90 Unspecified osteoarthritis, unspecified site (principal); G35 Multiple sclerosis
CPT/HCPCS: 97010; 97110; 97112; 97116; 97140; 97162; 97164

== ENCOUNTER 2019-05-18 10:11 | Emergency (ER) | payer OTHER, SELFPAY ==
[2019-05-18 10:25] VITALS: BP 137/63; PULSE 64; RESP 16; TEMP 37.7; O2SAT 97; BMI 20.5
--- NOTE | 2019-05-18 10:41 | ED.UPPEXIN ---
HPI - Extremity Injury (Upper) General Chief Complaint: Extremity Injury, Upper Stated Complaint: Swollen left ring finger Time Seen by Provider: 05/18/19 10:39 Source: patient Mode of arrival: ambulatory Limitations: no limitations History of Present Illness HPI narrative: The patient is a 84-year-old presents with left ring finger swelling. She cannot get her wedding ring off. She feels like it is cutting off circulation. She is able to move the ring around the finger but not above the PIP. She denies numbness or tingling. She has arthritis of her fingers but denies any injury. MD complaint: injury to: left and finger (A ring) Related Data Home Medications Medication Instructions Recorded Confirmed ASPIRIN (#ASPIR 81) 81 mg PO Q DAY #0 05/08/12 CYCLOSPORINE (#RESTASIS 30 ML) 0.4 ml OP BID #0 05/08/12 ascorbic acid (vitamin C) 500 mg PO QDAY #0 08/14/17 calcium carbonate [Tums] 500 mg PO BID #0 08/14/17 cyanocobalamin (vitamin B-12) 5,000 mcg SUBLINGUAL QDAY #0 08/14/17 [Vitamin B-12] multivitamin [Multiple Vitamins] 1 tab PO QDAY #0 08/14/17 sennosides [senna] 8.6 mg PO PRN #0 02/12/18 levothyroxine 112 mcg capsule 112 mcg PO DAILY 05/28/18 05/28/18 pramipexole 0.75 mg tablet See Rx Instructions PO BEDTIME 05/28/18 05/28/18 Respironics Dreamstation CPAP #1 ea 04/08/19 04/08/19 Allergies Allergy/AdvReac Type Severity Reaction Status Date / Time metoclopramide [From REGLAN] Allergy Severe UNCONTROLBLE Verified 04/08/19 15:49 LIMB MOVEMENTS Penicillins [PENICILLINS] Allergy Unknown RASH Verified 04/08/19 15:49 Review of Systems Review of Systems GENERAL: Denies chills,fever HEENT: Denies throat pain RESPIRATORY: Denies dyspnea, cough, wheezing CARDIOVASCULAR: Denies chest pain, palpitations GASTROINTESTINAL: Denies nausea, vomiting MUSCULOSKELETAL: See HPI SKIN: No rash, no laceration, no pruritus NEUROLOGIC: Denies weakness, dizziness, headache, numbness 8 point review of systems is negative except for those stated above and HPI [facility] Medical History Hypothyroid (Acute) Social History Smoking Status: Former smoker alcohol intake: current Social History Smoking Status: Former smoker alcohol intake: current Exam Initial Vital Signs Initial Vital Signs: Vital Signs Temperature 99.8 F H 05/18/19 10:25 Pulse Rate 64 05/18/19 10:25 Respiratory Rate 16 05/18/19 10:25 Blood Pressure 137/63 05/18/19 10:25 Pulse Oximetry 97 05/18/19 10:25 GENERAL: Well-appearing, well-nourished and in no acute distress. CARDIOVASCULAR: peripheral pulses in tact, cap refill <2 sec RESPIRATORY: No respiratory distress, speaks in full sentences without difficulty EXTREMITIES: Normal range of motion, no clubbing or edema. Neurovascularly intact Left middle ring finger slightly swollen not erythematous ring is very movable around finger. Cap refill less than 2 seconds. Patient able to flex and extend finger. No abnormality no trauma NEUROLOGICAL: Cranial nerves II through XII grossly intact. Normal gait and speech. SKIN: Warm, dry, no petechiae, no rashes or lesions. Course Vital Signs - 8 hr 05/18/19 10:25 Temperature 99.8 F H Pulse Rate 64 Respiratory Rate 16 Blood Pressure 137/63 Pulse Oximetry 97 MDM - Extremity Injury (Upper) MDM Narrative Medical decision making narrative: Ring removal done by nursing. Neurovascularly intact before and after reassessed by me. This time finger not appear infected joint seems swollen from arthritis. Discharge Plan Departure Patient Disposition: Home Clinical Impression: Osteoarthritis of hand, left Qualifiers: Osteoarthritis type: unspecified Qualified Code(s): M19.042 - Primary osteoarthritis, left hand Discharge Date/Time: 05/18/19 11:37 Interventions: ED Discharge Assessment Last Done: 05/18/19 11:36 Instructions: DI for Arthritis Activity Restrictions/Additional Instructions: *You have been diagnosed with arthritis *Continue to take medications as directed *Follow up with your primary care provider in 2-3 days *Return to ER if you should have increased swelling redness fever inability to move fingers or any new, worsening or concerning symptoms Prescriptions: No Action CYCLOSPORINE (#RESTASIS 30 ML) 0.4 ml OP BID Qty: 0 RF: 0 ASPIRIN (#ASPIR 81) 81 mg PO Q DAY Qty: 0 RF: 0 multivitamin [Multiple Vitamins] 1 EACH tablet 1 tab PO QDAY Qty: 0 RF: 0 ascorbic acid (vitamin C) 500 MG tablet 500 mg PO QDAY Qty: 0 RF: 0 calcium carbonate [Tums] 500 MG tablet,chewable 500 mg PO BID Qty: 0 RF: 0 cyanocobalamin (vitamin B-12) [Vitamin B-12] 5,000 MCG tablet, sublingual 5,000 mcg Sublingual QDAY Qty: 0 RF: 0 sennosides [senna] 8.6 MG tablet 8.6 mg PO PRN Qty: 0 RF: 0 levothyroxine 112 mcg capsule 112 mcg PO DAILY RF: 0 pramipexole 0.75 mg tablet See Patient Comments PO BEDTIME RF: 0 Respironics Dreamstation CPAP Qty: 1 RF: 0 Referrals: Blayne Sims MD [Primary Care Provider] -
--- NOTE | 2019-05-18 11:08 | PC.NURSE ---
tolerated procedure, successful. ring pieces placed in cup, given to pt.
--- NOTE | 2019-05-18 11:09 | PC.NURSE ---
due to arthritis, pt unable to removed left ring.
== END 2019-05-18 11:37 | disposition home or self-care (01) ==
PROVIDERS: Emergency Provider Emergency Medicine; PCP Internal Medicine
DX: M19.042 Primary osteoarthritis, left hand (principal)
CPT/HCPCS: 99282

== ENCOUNTER → 2019-08-19 15:30 | Outpatient (CLI) | payer OTHER, SELFPAY ==
[2019-08-19 17:13] LABS: Aspartate Aminotransferase 52 IU/L (14-36); BUN Creatinine Ratio 31.1 (6-22); Blood Urea Nitrogen 28 mg/dL (7-17); Calcium 9.9 mg/dL (8.4-10.2); Carbon Dioxide 28 mmol/L (22-32); Chloride 104 mmol/L (98-107); Cholesterol 158 mg/dL (140-199); Estimated Glomerular Filt Rate 59.9 mL/min (>60); Glucose 109 mg/dL (80-110); HDL Cholesterol 90 mg/dL (40-60); HEMOLYSIS < 15 (0-50); LDL Cholesterol Calculated 59 mg/dL (<100); Potassium 4.7 mmol/L (3.4-5.1); Sodium 139 mmol/L (137-145); Triglycerides 45 mg/dL (35-150)
[2019-08-19 17:43] LABS: Thyroid Stimulating Hormone 5.62 uIU/mL (0.47-4.68)
== END ==
PROVIDERS: PCP Internal Medicine; Visit Provider Internal Medicine
DX: E78.2 Mixed hyperlipidemia (principal); I10 Essential (primary) hypertension; E03.9 Hypothyroidism, unspecified
CPT/HCPCS: 36415; 80048; 80061; 84443; 84450

== ENCOUNTER → 2019-11-05 16:48 | Outpatient (CLI) | payer OTHER, SELFPAY ==
[2019-11-05 17:33] LABS: Aspartate Aminotransferase 39 IU/L (14-36); BUN Creatinine Ratio 34.4 (6-22); Blood Urea Nitrogen 31 mg/dL (7-17); Calcium 9.4 mg/dL (8.4-10.2); Carbon Dioxide 23 mmol/L (22-32); Chloride 109 mmol/L (98-107); Cholesterol 178 mg/dL (140-199); Estimated Glomerular Filt Rate 59.9 mL/min (>60); Glucose 98 mg/dL (80-110); HDL Cholesterol 92 mg/dL (40-60); HEMOLYSIS < 15 (0-50); LDL Cholesterol Calculated 73 mg/dL (<100); Potassium 5.1 mmol/L (3.4-5.1); Sodium 139 mmol/L (137-145); Triglycerides 65 mg/dL (35-150)
[2019-11-05 18:03] LABS: Thyroid Stimulating Hormone 3.07 uIU/mL (0.47-4.68)
== END ==
PROVIDERS: PCP Internal Medicine; Visit Provider Internal Medicine
DX: I10 Essential (primary) hypertension (principal); E78.2 Mixed hyperlipidemia; E03.9 Hypothyroidism, unspecified
CPT/HCPCS: 36415; 80048; 80061; 82565; 84443; 84450; 84520

== ENCOUNTER 2019-11-13 04:36 | Inpatient (IN) | payer MEDICARE, SELFPAY ==
[2019-11-13] VITALS (22 sets, daily range): BP systolic 116–182; BP diastolic 46–85; PULSE 58–80; RESP 10–20; TEMP 36.4–37.2; O2SAT 94–100; BMI 20.2; BMI 22.0
--- NOTE | 2019-11-13 | DI.RAD.S_ITS ---
PROCEDURE: XR PELVIS 1-2V INDICATIONS: INTER OP HIP TECHNIQUE: Intra-operative view of the pelvis and hip acquired. COMPARISON: None. FINDINGS: Bones: Intraoperative devices prior to placement of arthroplasty prostheses are in expected positions. No fractures or suspicious bony lesions. Soft tissues: Overlying surgical retractors are present, along with other intraoperative changes. IMPRESSION: Single intraoperative view of left hip arthroplasty. Dictated by: Magalie Snyder M.D. on 11/13/2019 at 10:05 Approved by: Magalie Snyder M.D. on 11/13/2019 at 10:05
--- NOTE | 2019-11-13 | DI.RAD.S_ITS ---
PROCEDURE: XR PELVIS 1-2V INDICATIONS: POST OP LEFT NICOLAS HIP TECHNIQUE: 1 view of the lower pelvis acquired. COMPARISON: [facility], , XR PELVIS 1-2V, 11/13/2019, 10:34. FINDINGS: Bones: Patient is status post left hip arthroplasty, with hardware components in expected positions. The hip joint appears congruent. The visualized bony structures appear intact. Soft tissues: Overlying postoperative changes are noted. No suspicious soft tissue densities. IMPRESSION: Postoperative changes associated with left hip arthroplasty. Dictated by: Magalie Snyder M.D. on 11/13/2019 at 10:54 Approved by: Magalie Snyder M.D. on 11/13/2019 at 10:55
--- NOTE | 2019-11-13 04:39 | DI.RAD.S_ITS ---
PROCEDURE: XR HIP W PEL IF DONE LT 2V INDICATIONS: pain after fall TECHNIQUE: AP pelvis with lateral view(s) of the left hip(s). COMPARISON: None. FINDINGS: Bones: There is an impacted, angulated left femoral neck fracture. The left femoral head remains articulated in the acetabulum. Soft tissues: The visualized bowel gas pattern is normal. No suspicious soft tissue calcifications. IMPRESSION: Impacted, angulated left femoral neck fracture. Dictated by: Magalie Snyder M.D. on 11/13/2019 at 7:51 Approved by: Magalie Snyder M.D. on 11/13/2019 at 7:52
--- NOTE | 2019-11-13 04:39 | DI.RAD.S_ITS ---
PROCEDURE: XR FEMUR LT MIN 2V INDICATIONS: pain after fall TECHNIQUE: 2 views of the femur were acquired. COMPARISON: [facility], , FEMUR TWO OR MORE VIEWS LEFT, 08/14/2017, 12:00. FINDINGS: Bones: There is an impacted, angulated left femoral neck fracture. Patient is status post ORIF of the distal femur and hardware appears intact. No other fracture or dislocation. Bones are osteopenic. Soft tissues: No suspicious soft tissue calcifications or masses. IMPRESSION: Impacted, angulated left femoral neck fracture. Dictated by: Magalie Snyder M.D. on 11/13/2019 at 6:52 Approved by: Magalie Snyder M.D. on 11/13/2019 at 6:53
--- NOTE | 2019-11-13 04:39 | ED.GENADULT ---
HPI - General Adult General Chief complaint: Extremity Injury, Lower Stated complaint: GLF Time Seen by Provider: 11/13/19 04:39 Source: patient Mode of arrival: EMS Limitations: no limitations History of Present Illness HPI narrative: Patient is an 84-year-old female brought in by EMS for concerns of left hip pain after a fall. Patient states that last evening she was rearranging her refrigerator when she turned and fell landing on her left hip. She did not hit her head. There was no loss of consciousness. She does live in a independent living facility that does provide some assistance. She was brought to the emergency department by EMS after her daughter found her lying on the ground early this morning. Patient states that she was able to move around somewhat but could not stand up because of the pain in the left hip. Last oral intake was before midnight. Patient denies any other injuries except for pain in her left hip. Related Data Home Medications Medication Instructions Recorded Confirmed ASPIRIN (#ASPIR 81) 81 mg PO Q DAY #0 05/08/12 CYCLOSPORINE (#RESTASIS 30 ML) 0.4 ml OP BID #0 05/08/12 ascorbic acid (vitamin C) 500 mg PO QDAY #0 08/14/17 calcium carbonate [Tums] 500 mg PO BID #0 08/14/17 cyanocobalamin (vitamin B-12) 5,000 mcg SUBLINGUAL QDAY #0 08/14/17 [Vitamin B-12] multivitamin [Multiple Vitamins] 1 tab PO QDAY #0 08/14/17 sennosides [senna] 8.6 mg PO PRN #0 02/12/18 levothyroxine 112 mcg capsule 112 mcg PO DAILY 05/28/18 05/28/18 pramipexole 0.75 mg tablet See Rx Instructions PO BEDTIME 05/28/18 05/28/18 Respironics Dreamstation CPAP #1 ea 04/08/19 04/08/19 Allergies Allergy/AdvReac Type Severity Reaction Status Date / Time metoclopramide [From REGLAN] Allergy Severe UNCONTROLBLE Verified 11/13/19 05:15 LIMB MOVEMENTS Penicillins [PENICILLINS] Allergy Unknown RASH Verified 11/13/19 05:15 Review of Systems Constitutional Constitutional: Denies fever(s) Cardiovascular Cardiovascular: Denies chest pain and Denies dyspnea Respiratory Respiratory: Denies dyspnea Gastrointestinal Gastrointestinal: Denies abdominal pain and Denies vomiting Musculoskeletal Comments: Left hip pain Integumentary/Breasts Comments: Open sore in the back of the left heel Neurologic Neurologic: Denies behavioral changes Psychiatric Psychiatric: Denies behavioral changes Hematologic/Lymphatic Comments: No anticoagulation Allergic/Immunologic Allergic/Immunologic: Denies urticaria Patient History Medical History Hypothyroid (Acute) Social History Smoking Status: Former smoker alcohol intake: current Smoking Status: Former smoker Substance Use Type: does not use Exam Initial Vital Signs Initial Vital Signs: Vital Signs Pulse Rate 62 11/13/19 04:36 Respiratory Rate 18 11/13/19 04:36 Blood Pressure 169/63 H 11/13/19 04:36 Pulse Oximetry 100 11/13/19 04:36 Const General: cooperative and well developed Orientation: alert, awake and oriented x3 HENMT Head: normal to inspection and normocephalic Resp Effort & Inspection: normal respiratory effort Auscultation: clear to auscultation bilaterally Cardio Rate: regular rate Rhythm: regular rhythm GI Inspection: non-distended Palpation: soft Skin Other: 2 cm stage II decubitus ulcer posterior left heel Neuro General: alert, awake and oriented x3 Cognition: normal cognition Speech: speech normal Extrem Other: Patient with tenderness to palpation with any movement of the left leg. Located on the proximal femur and left hip. Right lower extremity unremarkable. Bilateral upper extremities unremarkable. Psych Appearance: grossly normal and well kempt Course Orders Ordered: ED Orders 11/13/19 04:39 XR femur LT min 2V Stat XR hip w pel if done LT 2V Stat 11/13/19 05:01 Consult to Orthopedic Surgery Stat 11/13/19 05:18 Basic Metabolic Panel Stat Complete Blood Count AUTO DIFF Stat Creatine Kinase Stat Partial Thromboplastin Time Stat Prothrombin Time INR Stat 11/13/19 05:20 Type and Screen Stat Acetaminophen (Tylenol) 650 mg PO Q6HR PRN PRN Reason: Fever/Mild Pain (1-3) Sodium Chloride (Normal Saline 0.9%) 1,000 mls @ 100 mls/hr IV CONT HALEY Last Admin: 11/13/19 05:15 Dose: 100 mls/hr Documented by: AYDE Lactated Ringer's (Lactated Ringers) 1,000 mls @ 100 mls/hr IV CONT HALEY Levothyroxine Sodium (Synthroid) 112 mcg PO 0600 HALEY Morphine Sulfate (Morphine) 4 mg IV NOW ONE Stop: 11/13/19 05:45 Naloxone HCl (Narcan) 0.2 mg IV Q2MIN PRN PRN Reason: Opiate Reversal Non-Formulary Medication (Cyclosporine (#Restasis 30 Ml)) 0.4 ml OP BID HALEY Ondansetron HCl (Zofran) 4 mg IV Q6HR HALEY Discontinued Medications Morphine Sulfate (Morphine) 2 mg IV NOW ONE Stop: 11/13/19 05:12 Last Admin: 11/13/19 05:16 Dose: 2 mg Documented by: AYDE Morphine Sulfate (Morphine) 2 mg IV NOW ONE Stop: 11/13/19 05:27 Last Admin: 11/13/19 05:32 Dose: 2 mg Documented by: SVITLANA Vital Signs Vital signs: Vital Signs - 8 hr 11/13/19 04:36 Pulse Rate 62 Respiratory Rate 18 Blood Pressure 169/63 H Pulse Oximetry 100 Medical Decision Making Lab Data Lab results reviewed: Yes I reviewed the patient's lab results. Result diagrams: 11/13/19 05:18 11/13/19 05:18 Labs: Lab Results 11/13/19 11/13/19 11/13/19 Range/Units 05:18 05:18 05:18 WBC 13.0 H (4.5-11.0) X10^3/uL RBC 3.60 L (4.0-5.2) X10^6/uL Hgb 11.0 L (12.0-16.0) g/dL Hct 33.5 L (36-46) % MCV 93.1 (80-100) fL MCH 30.5 (26-34) PG MCHC 32.8 (30-36) % RDW 15.1 H (11.6-14.8) % Plt Count 132 L (150-400) X10^3/uL Neut % (Auto) 90.2 H (50-75) % Lymph % (Auto) 4.3 L (25-40) % [place] % (Auto) 4.3 (3-14) % Eos % (Auto) 0.7 L (2-4) % Baso % (Auto) 0.5 (0-2) % Neut # (Auto) 88258 H (2186-5713) /uL Lymph # (Auto) 600 L (9959-2927) /uL [place] # (Auto) 600 (0-900) /uL Eos # (Auto) 100 (0-450) /uL Baso # (Auto) 100 (0-100) /uL Sodium 143 (137-145) mmol/L Potassium 4.9 (3.4-5.1) mmol/L Chloride 113 H (98-107) mmol/L Carbon Dioxide 21 L (22-32) mmol/L BUN 25 H (7-17) mg/dL Creatinine 0.80 (0.52-1.04) mg/dL Estimated GFR > 60.0 (>60) mL/min BUN/Creatinine Ratio 31.3 H (6-22) Glucose 106 (80-110) mg/dL Calcium 9.7 (8.4-10.2) mg/dL Total Creatine Kinase 143 H (30-135) U/L Imaging Data Extremity x-ray #1: Attestation: I personally reviewed and interpreted this imaging study as follows: My Impression: Left femoral neck fracture displaced Extremity x-ray #2: Attestation: I personally reviewed and interpreted this imaging study as follows: My Impression: Femur x-ray Hardware distal Left proximal femoral neck fracture MDM Narrative Medical decision making narrative: Patient with what appears to be a mechanical fall. Last meal was before midnight last night. Only injury patient reports in found on exam is pain around the left hip. She is alert oriented x3. X-ray show proximal femur fracture. Discussed the case with Dr. Swann with Orthopedics who reviewed the x-rays. I then discussed the case with CANDIS Chan night hospitalist who will admit. Did discuss the findings of the x-rays with the patient. She expressed understanding. Discharge Plan Departure Patient Disposition: Admitted As Inpatient Clinical Impression: Fracture of femoral neck, left Qualifiers: Encounter type: initial encounter Fracture type: closed Qualified Code(s): S72.002A - Fracture of unspecified part of neck of left femur, initial encounter for closed fracture Fall Qualifiers: Encounter type: initial encounter Qualified Code(s): W19.XXXA - Unspecified fall, initial encounter Admit Date/Time: 11/13/19 05:19 Admit Provider: Guadalupe Chan
[2019-11-13] MEDS: SODIUM CHLORIDE 0.9% 1,000 ML 100 ML IV (05:15)
[2019-11-13] MEDS: MORPHINE 2 MG/ML INJ IV ×2 (05:16→05:32)
[2019-11-13 05:34] LABS: Add Manual Diff / Slide Review NO; Basophils Absolute Auto 100 /uL (0-100); Basophils Percent Auto 0.5 % (0-2); Eosinophils Absolute Auto 100 /uL (0-450); Eosinophils Percent Auto 0.7 % (2-4); Hematocrit 33.5 % (36-46); Lymphocytes Absolute Auto 600 /uL (1100-4500); Lymphocytes Percent Auto 4.3 % (25-40); Mean Corpuscular HGB Conc 32.8 % (30-36); Mean Corpuscular Hemoglobin 30.5 PG (26-34); Mean Corpuscular Volume 93.1 fL (80-100); Monocytes Absolute Auto 600 /uL (0-900); Monocytes Percent Auto 4.3 % (3-14); Neutrophils Absolute Auto 11800 /uL (1500-7000); Neutrophils Percent Auto 90.2 % (50-75); Platelet Count 132 X10^3/uL (150-400); Red Cell Distribution Width 15.1 % (11.6-14.8)
[2019-11-13 05:42] LABS: Creatine Kinase 143 U/L (30-135)
[2019-11-13 05:43] LABS: BUN Creatinine Ratio 31.3 (6-22); Blood Urea Nitrogen 25 mg/dL (7-17); Calcium 9.7 mg/dL (8.4-10.2); Carbon Dioxide 21 mmol/L (22-32); Chloride 113 mmol/L (98-107); Estimated Glomerular Filt Rate > 60.0 mL/min (>60); Glucose 106 mg/dL (80-110); HEMOLYSIS < 15 (0-50); Potassium 4.9 mmol/L (3.4-5.1); Sodium 143 mmol/L (137-145)
[2019-11-13 05:47] LABS: PTT Partial Thromboplastin Tim 28 SECONDS (26.4-36.2); Prothrombin Time 10.9 SECONDS (10.1-12.7)
[2019-11-13] MEDS: MORPHINE 4 MG/ML INJ IV (05:49)
--- NOTE | 2019-11-13 05:58 | PC.NURSE ---
CANDIS Chan at bedside.
--- NOTE | 2019-11-13 06:08 | PM.HP.1 ---
History of Present Illness History of Present Illness Date Patient Seen: 11/13/19 Time Patient Seen: 06:00 Chief complaint: GLF Narrative: Dorothy Jacob is an 84 y.o. female with multiple sclerosis, hypertension, hyperlipidemia, and hypothyroidism was in her usual state of health when she was closing the door to her refrigerator when she slipped and fell. She denies blacking out. She lives in a senior living home in a small apartment and stated the area is cramped and small. Normally uses a walker and was using at the time when she fell. 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 Patient History Medical History (Updated 11/13/19 @ 06:48 by ADRIANA Brower) Hyperlipidemia (Inactive) Hypertension, essential (Inactive) Hypothyroid (Chronic) Left femoral shaft fracture (Acute) Multiple sclerosis (Inactive) Surgical History H/O cataract removal with insertion of prosthetic lens (Acute) H/O esophageal hernia repair (Acute) Family & Social History Family History Father Asthma Mother Colon cancer Safety & Behavioral: Feels Safe in Current Yes Environment Been Physically Hurt or No Threatened By a Person Tobacco & Substance use: Smoking Status Former smoker during teens alcohol intake current Substance Use Type does not use Meds Home Medications and Allergies Home Medications Medication Instructions Recorded Confirmed Type ASPIRIN (#ASPIR 81) 81 mg PO Q DAY #0 05/08/12 11/13/19 History CYCLOSPORINE (#RESTASIS 30 ML) 0.4 ml OP BID #0 05/08/12 11/13/19 History ascorbic acid (vitamin C) 500 mg PO QDAY #0 08/14/17 11/13/19 History calcium carbonate [Tums] 500 mg PO PRN PRN #0 08/14/17 11/13/19 History cyanocobalamin (vitamin B-12) 5,000 mcg SUBLINGUAL QDAY #0 08/14/17 11/13/19 History [Vitamin B-12] multivitamin [Multiple Vitamins] 1 tab PO QDAY #0 08/14/17 11/13/19 History sennosides [senna] 8.6 mg PO PRN #0 02/12/18 History levothyroxine 112 mcg capsule 112 mcg PO DAILY 05/28/18 11/13/19 History pramipexole 0.75 mg tablet See Rx Instructions PO BEDTIME 05/28/18 05/28/18 History Respironics Dreamstation CPAP #1 ea 04/08/19 04/08/19 History losartan 25 mg PO DAILY 11/13/19 11/13/19 History Allergies Allergy/AdvReac Type Severity Reaction Status Date / Time metoclopramide [From REGLAN] Allergy Severe UNCONTROLBLE Verified 11/13/19 05:15 LIMB MOVEMENTS Penicillins [PENICILLINS] Allergy Unknown RASH Verified 11/13/19 05:15 Review of Systems Review of Systems Narrative: All systems reviewed and are negative except as noted in the HPI. Exam Vital Signs (past 8 hours): - 11/13/19 04:36 Pulse Rate 62 Respiratory Rate 18 Blood Pressure 169/63 H Pulse Oximetry 100 Oxygen Delivery Method Room Air Narrative Exam Narrative: Gen: Alert, oriented, thin 84 y.o. female, in a great deal of pain HEENT: normocephalic, atraumatic, conjunctiva clear, sclera non-icteric, oral mucosa pink and moist Neck: supple, full ROM Resp: Lungs CTA, non-labored breathing CV: RRR, no murmur or rubs Abd: soft, non-tender, normoactive BTs Skin: thin and friable with bruises on her arms and hands, otherwise dry and intact Neuro: Alert and oriented X 4 w/no focal deficits Extremities: moves all 4 extremities, normally is ambulatory, negative Maribel?s sign Psyche: normal mood and affect. Objective Labs Result Diagrams: 11/13/19 05:18 11/13/19 05:18 Labs: Laboratory Results - last 24 hr 11/13/19 11/13/19 11/13/19 05:18 05:18 05:18 WBC 13.0 H RBC 3.60 L Hgb 11.0 L Hct 33.5 L MCV 93.1 MCH 30.5 MCHC 32.8 RDW 15.1 H Plt Count 132 L Neut % (Auto) 90.2 H Lymph % (Auto) 4.3 L [place] % (Auto) 4.3 Eos % (Auto) 0.7 L Baso % (Auto) 0.5 Neut # (Auto) 13268 H Lymph # (Auto) 600 L [place] # (Auto) 600 Eos # (Auto) 100 Baso # (Auto) 100 PT 10.9 INR 1.0 APTT 28 Sodium 143 Potassium 4.9 Chloride 113 H Carbon Dioxide 21 L BUN 25 H Creatinine 0.80 Estimated GFR > 60.0 BUN/Creatinine Ratio 31.3 H Glucose 106 Calcium 9.7 Total Creatine Kinase Blood Type 11/13/19 11/13/19 05:18 05:20 WBC RBC Hgb Hct MCV MCH MCHC RDW Plt Count Neut % (Auto) Lymph % (Auto) [place] % (Auto) Eos % (Auto) Baso % (Auto) Neut # (Auto) Lymph # (Auto) [place] # (Auto) Eos # (Auto) Baso # (Auto) PT INR APTT Sodium Potassium Chloride Carbon Dioxide BUN Creatinine Estimated GFR BUN/Creatinine Ratio Glucose Calcium Total Creatine Kinase 143 H Blood Type O Positive Assessment & Plan Assessment & Plan narrative: Dorothy Jacob is admitted as in inpatient for management of a left femoral neck fracture. Dr. Kaplan will see the patient later today, schedule for surgery repair is unknown. 1. Left femoral neck fracture, acute, present on admission NPO except medications After surgery, she may have a low sodium diet Dr. Kaplan contacted by ED for consult and is appreciated Tylenol, IV Toradal and morphine for pain Hip precautions 2. Essential hypertension, chronic and stable, POA Continue home dose of losartan 25 mg po daily 3. Hyperlipidemia, chronic and stable, POA Continue home dose of rosuvastatin 10 mg po at bedtime 4. Hypothyroid, chronic and stable, POA Continue home dose of levothyroxine 112 mcg po daily 5. Urinary incontinence associated with MS, chronic and stable, POA Continue home dose of oxybuytnin 5 mg po daily Mcdonald catheter has been ordered 6. Multiple Sclerosis, chronic and stable, POA She is followed by Dr. Michael, neurologist in [place] FEN: NPO except medications, LR at 100 ml/hour, chemistries in the am Patient is admitted inpatient her stay is not likely to exceed 2 midnights. VTE Prophylaxis: bilateral scds Disposition: Likely discharge to rehab Code Status: Full code Time Spent With Patient Time with patient: 15-24 minutes Quality VTE Deep Vein Thrombosis/Pulmonary Embolism Present on Admission: No
[2019-11-13] MEDS: LACTATED RINGERS 1,000 ML 100 ML IV ×2 (06:43→20:58)
[2019-11-13] MEDS: LEVOTHYROXINE 112 MCG TABLET PO (06:44)
[2019-11-13] MEDS: KETOROLAC 15 MG/ML VIAL IV (06:55)
--- NOTE | 2019-11-13 07:16 | PC.ADMIT ---
Safe hand off from [facility] ED. Pt arrived via stretcher and was transferred to bed via slider board. Patient is AxO, hypertensive and pain level is 7/10. Patient was medicated with 15mg Toradol at 0655. Patient has bhat catheter and is expected in surgery today for hip replacement. Pt has call light, bed is low and locked and bed alarm is on. [email or web address] Admission Note: The patient,Dorothy Jacob,84 y/o, was given written information regarding hospital policies, unit procedures and contact persons. Patient's smoking status: Former smoker. Vital Signs - 8 hr 11/13/19 04:36 11/13/19 05:30 11/13/19 06:00 Temperature Pulse Rate 62 66 70 Respiratory Rate 18 19 20 Blood Pressure 169/63 H Blood Pressure [Right Arm] 161/63 H 172/67 H Pulse Oximetry 100 99 100 11/13/19 06:37 Temperature 98.8 F Pulse Rate 80 Respiratory Rate 18 Blood Pressure 182/85 H Blood Pressure [Right Arm] Pulse Oximetry 97
--- NOTE | 2019-11-13 08:28 | PM.CN ---
History of Present Illness Consult details Date Patient Seen: 11/13/19 Time Patient Seen: 08:28 Chief complaint: GLF Reason for consult: Displaced L femoral neck fracture Narrative: Patient is an 84 yo F who lives in a fpc home. She has MS and uses a FWW for ambulation. She has used a FWW for many years to help with balance. Last night she was attempting to move some furniture when she had a mechanical GLF onto her left side. She had immediate onset of pain and inability to weight bear. She denies previous history of groin pain. She ambulates around the fpc facility and to the park across the street. Meds Home Medications and Allergies Home Medications Medication Instructions Recorded Confirmed Type ASPIRIN (#ASPIR 81) 81 mg PO Q DAY #0 05/08/12 11/13/19 History CYCLOSPORINE (#RESTASIS 30 ML) 0.4 ml OP BID #0 05/08/12 11/13/19 History ascorbic acid (vitamin C) 500 mg PO QDAY #0 08/14/17 11/13/19 History calcium carbonate [Tums] 500 mg PO PRN PRN #0 08/14/17 11/13/19 History cyanocobalamin (vitamin B-12) 5,000 mcg SUBLINGUAL QDAY #0 08/14/17 11/13/19 History [Vitamin B-12] multivitamin [Multiple Vitamins] 1 tab PO QDAY #0 08/14/17 11/13/19 History sennosides [senna] 8.6 mg PO PRN #0 02/12/18 History levothyroxine 112 mcg capsule 112 mcg PO DAILY 05/28/18 11/13/19 History pramipexole 0.75 mg tablet See Rx Instructions PO BEDTIME 05/28/18 05/28/18 History Respironics Dreamstation CPAP #1 ea 04/08/19 04/08/19 History losartan 25 mg PO DAILY 11/13/19 11/13/19 History Allergies Allergy/AdvReac Type Severity Reaction Status Date / Time metoclopramide [From REGLAN] Allergy Severe UNCONTROLBLE Verified 11/13/19 05:15 LIMB MOVEMENTS Penicillins [PENICILLINS] Allergy Unknown RASH Verified 11/13/19 05:15 Exam Vital Signs (past 8 hours): - 11/13/19 04:36 11/13/19 05:30 11/13/19 06:00 Temperature Pulse Rate 62 66 70 Respiratory Rate 18 19 20 Blood Pressure 169/63 H Blood Pressure [Right Arm] 161/63 H 172/67 H Pulse Oximetry 100 99 100 11/13/19 06:37 Temperature 98.8 F Pulse Rate 80 Respiratory Rate 18 Blood Pressure 182/85 H Blood Pressure [Right Arm] Pulse Oximetry 97 Oxygen Delivery Method Room Air Oxygen Flow Rate 0 Narrative Exam Narrative: NV intact to LLE. small decubitus ulcer on the left heel. No skin breaks at the left hip. No rash. Objective Labs Result Diagrams: 11/13/19 05:18 11/13/19 05:18 Labs: Laboratory Results - last 24 hr 11/13/19 11/13/19 11/13/19 05:18 05:18 05:18 WBC 13.0 H RBC 3.60 L Hgb 11.0 L Hct 33.5 L MCV 93.1 MCH 30.5 MCHC 32.8 RDW 15.1 H Plt Count 132 L Neut % (Auto) 90.2 H Lymph % (Auto) 4.3 L [place] % (Auto) 4.3 Eos % (Auto) 0.7 L Baso % (Auto) 0.5 Neut # (Auto) 32931 H Lymph # (Auto) 600 L [place] # (Auto) 600 Eos # (Auto) 100 Baso # (Auto) 100 PT 10.9 INR 1.0 APTT 28 Sodium 143 Potassium 4.9 Chloride 113 H Carbon Dioxide 21 L BUN 25 H Creatinine 0.80 Estimated GFR > 60.0 BUN/Creatinine Ratio 31.3 H Glucose 106 Calcium 9.7 Total Creatine Kinase Blood Type Antibody Screen 11/13/19 11/13/19 05:18 05:20 WBC RBC Hgb Hct MCV MCH MCHC RDW Plt Count Neut % (Auto) Lymph % (Auto) [place] % (Auto) Eos % (Auto) Baso % (Auto) Neut # (Auto) Lymph # (Auto) [place] # (Auto) Eos # (Auto) Baso # (Auto) PT INR APTT Sodium Potassium Chloride Carbon Dioxide BUN Creatinine Estimated GFR BUN/Creatinine Ratio Glucose Calcium Total Creatine Kinase 143 H Blood Type O Positive Antibody Screen Negative Assessment & Plan Assessment & Plan narrative: Patient is an 84 yo F with MS who uses a FWW for ambulation. She is mainly a household ambulator. She sustained a displaced fermoral neck fracture in a mechanical GLF. Plan is for a left hip hemiarthoplasty I had a long discussion with the patient regarding her fracture and surgical risks and benefits. The risks include infection, DVT, fracture, dislocation, need for future surgeries, damage to local structures such as vessels and nerves, etc. Patient demonstrates understanding of risks. Time Spent With Patient Time with patient: 25 - 35 minutes
--- NOTE | 2019-11-13 09:32 | PC.NURSE ---
Pt left for surgery around 0830. She is a&ox3....Denied pain when doing her assessment. She was npo before surgery. L.leg shorter than R.leg a few inches.. Dr Urena will be doing surgery this morning.
[2019-11-13] MEDS: CEFAZOLIN 2 GM/100 ML FROZ.PIGGY IV ×2 (09:34→18:03)
[2019-11-13] MEDS: TRANEXAMIC ACID 1,000 MG VIAL 1000 MG INJ ×2 (09:56→10:54)
--- NOTE | 2019-11-13 10:18 | SUR.OPER ---
Lateral on padded OR bed. Gel axillary roll. Arms secured on padded armboard with pillow supporting top arm. Padded hip positioner braces x4 - anterior and posterior chest and pelvis. Additional gel pad used anterior pelvis. Gel pad under bottom leg from knee to foot and secured with tape over sheet.
[2019-11-13] MEDS: ROPIVACAINE 0.5% PF 5 MG/ML 20ML VIAL 60 ML INJ (10:23)
[2019-11-13] MEDS: MORPHINE 4 MG INJ (10:28)
[2019-11-13] MEDS: KETOROLAC INJ (10:28)
--- NOTE | 2019-11-13 11:21 | PM.OP.1 ---
Operative Date/Time/Diagnoses Date of procedure: 11/13/19 Time of procedure: 11:21 Pre-op diagnosis: displaced L femoral neck fracture Post-op diagnosis: same Procedure & Clinicians Procedure: L hip hemiarthroplasty Same procedure as scheduled: Yes Indications: displaced left femoral neck fracture Surgeon: João Urena Medical Lab Scientist: Radha Beavers Anesthesia Type: General Operative Notes Findings: Displaced left femoral neck fracture Closure Type: primary Specimen(s): none sent Prosthetic devices, grafts, tissues, transplants, or devices: [employer]hew Synergy Press-Fit stem size 17 [employer]hew bipolar head 28 mm +0 femoral head, 28 x 46 mm bipolar shell Estimated Blood Loss (mL): 50 Blood products transfused: none Procedure in detail: Patient was met in the preoperative area where the site and side of surgery were marked by . All last minute questions were answered. Patient is brought back in the operating room where she was induced under general anesthesia on her bed. She was then transferred onto the operating room table. She was subsequently placed in the right lateral decubitus position and all bony prominences were well padded. The left hip was then prepped and draped in normal sterile fashion. A time-out was performed verifying the site and side of surgery as well as the name of the patient. A 6 cm curvilinear incision was made from the greater trochanter in a posterior superior direction. Skin incision was made using 10. Blade followed by electrocautery in the subcutaneous layer down to the level of the ITB band and superior gluteal fascia. Superior gluteal fascia and ID band were incised using a 10. Blade. The bursa over the short external rotators was then taken down and a Cobra was placed underneath the gluteus medius. The piriformis was then released off the back of the greater trochanter and tagged. The short external rotators were then taken down and part of the quadratus femoris was released off the back of the trochanter. A Cobra was then placed on the inferior neck. The gluteus minimus was then elevated off the capsule and a Cobra was placed underneath the gluteus minimus. This exposed our capsule. A capsular incision starting from the base of the neck extending towards the labrum and head was then started careful consideration was taken to leave the labrum intact. The capsule was then released off the back of the neck creating a large capsular flap. This was also tagged. A refreshing femoral neck cut was then performed and the femoral head was removed from the socket using a corkscrew. A canal finer was then used followed by a powered reamers. We started with a 8, 8, 10 Reamer and subsequently kept up sizing until we got to a size 16 Press-Fit stem we then broached 13, 14, 15, 16. We trialed with a 16 stem and a standard offset neck and a +0 head. Hip was taken through range of motion found to be stable. Intraoperative x-ray was then taken verifying canal fill as well as length. Femoral stem looked to be in good position to undersize. The hip was then dislocated the trial components were then removed and we reamed a size 17 followed by the size 17 broach and found to have good rotational stability a size 17 final stem was then selected and malleted into place followed by the bipolar head. Hip was taken through final range of motion found to be stable. The wound was then thoroughly irrigated with normal saline. The capsule was repaired using a 1. Running Ethibond. The piriformis was repaired using a drill hole through the greater trochanter and a FiberWire. One limb was passed through the drill hole the other limb of the FiberWire was passed through the gluteus medius at its insertion on the greater trochanter. The ITB band was then repaired using 1. Vicryl in interrupted fashion about followed by a running 1. Vicryl in the superior gluteal fascia. The 2 0 Vicryl was then used in the subcutaneous layer followed by sparkle on the skin followed by an Aquacel dressing. Complications: none Post-operative Condition: stable Disposition: PACU Plan for aftercare: Posterior hip precautions for the left lower extremity. Weightbearing as tolerated left lower extremity. I anticipate patient will be discharged to assisted facility. DVT prophylaxis will consist of aspirin 81 mg b.i.d. for 6 weeks.
[2019-11-13] MEDS: LACTATED RINGERS 1,000 ML 120 ML IV (11:35)
--- NOTE | 2019-11-13 12:24 | CM.DANOTE ---
Addendum entered by MARYLOU Romero 11/13/19 13:18: ADD: SW attempted to meet bedside with pt but she was sleeping soundly and could not be woken up and had untouched lunch tray next to her. No family bedside. SW will assess in the morning when pt more appropriate and alert for d/c discussion. BF Original Note: DCP Brief Assessment Note Patient is an 84 year old female who was admitted today on 11/13/19 for GLF. Pt has REG MCR ADV for insurance and her PCP is Dr. Sims. EMR was reviewed. Per Ortho MD consult, recommending Left hip surgery and pt scheduled for surgery this morning around 0830. Per MD, pt has M.S. at baseline and uses a FWW. Per RN, pt still down in surgery recovery room. SW went by pt room at 1230 and pt just being brought up from surgery and was still quite groggy and not able to fully participate in goal directed discussion. Plan: SW to follow for bedside assessment with pt when she is more alert and oriented from her surgery and for PT initial eval to determine if pt will be safe to return home vs possible need for SNF rehab. MARYLOU Romero
--- NOTE | 2019-11-13 14:13 | CM.DANOTE ---
SW met bedside with pt after she was more alert and oriented after her hip surgery and pt states she is still feeling quite foggy from the medication but is so thankful to not currently having pain. Pt confirms that she lives at [facility] and that her adult Dtr Donna lives with her at [facility]. Pt states that Dtr is available for assist most days but also depends on Dtr's schedule (unclear if Dtr is working or not). Pt states that she has been mostly independent with ADL's at baseline and uses walker for most ambulation and still has her car but that her Dtr mostly drives. Pt states that she has a hx of [facility] SNF rehab when she broke her femur a couple years ago but pt states she is hopeful that she will be able to d/c home with her Dtr when stable for discharge but aware that she needs to demonstrate safe ambulation with PT/OT first. Pt plans to have Dtr bedside for CG training at some point but pt has not been able to talk with her Dtr since surgery yet. PT has been ordered and pending. Plan: SW to follow closely tomorrow after PT initial eval and recommendations to determine if pt will be safe for d/c home to [facility] Independent with her Dtr vs possible need for SNF. If SNF, [employer] auth needed and PASRR to be completed at that time. MARYLOU Romero Discharge Planning/Care Management Advanced directive, confirm from FAMILY Start: 11/13/19 06:39 Freq: Q24H Status: Active Protocol: Document 11/13/19 09:29 CLL (Rec: 11/13/19 09:32 CLL [id number]) Advance Directive, confirm on record Time 07:00 Person contacted daughter has not been contacted yet. Will talk to her and pt. Copy received No CM Discharge Assessment Start: 11/13/19 14:12 Freq: Status: Active Protocol: Document 11/13/19 14:12 BF (Rec: 11/13/19 14:13 BF [id number]) Discharge Planning Assessment Assigned Lance Crewmember/Mlrs Sergeant MARYLOU Briggs Advance Directives? Yes History Provided By Patient,Medical Record Has Patient been admitted in last 30 No days? Prior Living Arrangements Assisted Facility Household Members children Type of transporation used prior to Relies on Others admit Facility Name Admitted From: [facility] [address] Willing to Return to Facility? Yes Independent with ADL's Yes Is patient alert and oriented? Yes Needs Assistance With Managing Medications,Home Chores / Shopping Caregiver for Another No DME Already Rented / Owned FWW / Walker Comment Pt just arrived from hip surgery, waiting for PT eval and recommendations Barriers to Discharge No Discharge Plan Home Community Services Physical Therapy Transportation Arrangement If pt is safe for home then adult Dtr to provide transport at d/c Additional Comment Waiting for PT eval and recommendations Whiteboard Updated in Patient Room with Yes name and ext. # of Lance Crewmember/Mlrs Sergeant Review Status In Process Please Provide Date Initial DC 11/13/19 Assessment Was Performed Next Review Type Continued Stay Review
--- NOTE | 2019-11-13 14:27 | PT.IPTN ---
Surgery Performed Operation Date: 11/13/19 09:00 Actual Procedures p Hip Hemiarthroplasty(Left) - João Urena MD Physical Therapy Treatment Note M3 PT-IP Subjective Start: 11/13/19 14:23 Freq: NEEDED Status: Active Protocol: Document 11/13/19 14:24 [facility] (Rec: 11/13/19 14:26 [facility] [id number]) Subjective Physical Therapy Visit Type Type Patient Refusal Visit Start Time 14:19 Visit Stop Time 12:24 Total Visit Minutes 5 Notes Pt noted she felt lightheaded and dizzy and did not feel ready to get up. Pt has only been on floor for 2 hours at this time since surgery. Follow up in AM. Prior history & home set up recorded. Therapy Pain Assessment Pain Present Pain Present Denied Pain
[2019-11-13 14:57] LABS: Hematocrit 28.6 % (36-46); Hemoglobin 9.6 g/dL (12.0-16.0)
[2019-11-13] MEDS: ONDANSETRON 4 MG/2 ML INJ IV (15:50)
[2019-11-13] MEDS: ASPIRIN EC 81 MG TABLET PO (20:50)
[2019-11-13] MEDS: ROSUVASTATIN 10 MG TABLET PO (20:50)
[2019-11-13] MEDS: ACETAMINOPHEN 325 MG TABLET 650 MG PO (20:50)
[2019-11-13] MEDS: PRAMIPEXOLE 0.25 MG TABLET PO (20:50)
--- NOTE | 2019-11-13 21:47 | PC.NURSE ---
Evening note: Dorothy continues to deny pain tonight, reports chronic numbness and tingling to lower legs/feet and fingers which is normal because of my MS. Aquacel to posterior hip is CDI, ice pack in place. Strong pedal pulses, wearing bilateral SCD's. Extremities warm. Repositioned in bed from back to left side as patient cannot move self in bed very easily. She has foam wedge between legs w/ posterior hip precautions. Refused to stand at bedside tonight, rationale re: mobilizing early explained, she still refused saying I will in the morning. When daughter here earlier she brought patient's own medication pill bottles, which I then reconciled with home medication list in computer. Pill bottles sent back home with daughter, rationale for not taking own meds or having pill bottles in room explained to both patient and her daughter. Reported nausea at beginning of shift, IV Zofran given and she reports nausea is gone. She is oriented x 3, sometimes forgetful but tonight she said I feel more awake now--that medicine they gave me downstairs must have been strong. Oriented to room & call button, using call button appropriately. Fall precautions in place & alarm active at all times r/t high fall risk.
[2019-11-14] VITALS (9 sets, daily range): BP systolic 111–121; BP diastolic 49–86; PULSE 66–89; RESP 16–19; TEMP 37.1–37.7; O2SAT 95–100
--- NOTE | 2019-11-14 00:09 | PC.NURSE ---
Addendum entered by Nelson Colindres R.N. 11/14/19 05:34: 0520: Awakened pt due to her requesting Mirapex at soonest possible time; she is upset because she states her normal dose is 0.75mg and the dose in her medication record is 0.25mg. She states that she will have her daughter bring in the bottle to show the dose she takes at home. Pt's home med list in [employer] reports the dose as 0.25mg. Pt assured that the misunderstanding will be corrected david this morning. Original Note: Automobile Sales Consultant Note: 2350: Awake, resting in bed. Vital signs stable. Pt denies pain at this time but complains of restless legs. Warm blanket placed on feet per pt request. IV in place in rt forearm with LR infusing at 100cc/hr. Dressing to lt hip cdi.
[2019-11-14] MEDS: CEFAZOLIN 2 GM/100 ML FROZ.PIGGY IV (02:00)
[2019-11-14 05:09] LABS: BUN Creatinine Ratio 31.3 (6-22); Blood Urea Nitrogen 25 mg/dL (7-17); Calcium 8.3 mg/dL (8.4-10.2); Carbon Dioxide 24 mmol/L (22-32); Chloride 105 mmol/L (98-107); Estimated Glomerular Filt Rate > 60.0 mL/min (>60); Glucose 135 mg/dL (80-110); HEMOLYSIS 19 (0-50); Sodium 134 mmol/L (137-145)
[2019-11-14] MEDS: LEVOTHYROXINE 112 MCG TABLET PO (05:18)
[2019-11-14] MEDS: PRAMIPEXOLE 0.25 MG TABLET PO ×3 (05:20→18:58)
[2019-11-14 05:21] LABS: Add Manual Diff / Slide Review NO; Basophils Absolute Auto 0 /uL (0-100); Basophils Percent Auto 0.3 % (0-2); Eosinophils Absolute Auto 0 /uL (0-450); Eosinophils Percent Auto 0.4 % (2-4); Hematocrit 25.5 % (36-46); Hemoglobin 8.5 g/dL (12.0-16.0); Lymphocytes Absolute Auto 500 /uL (1100-4500); Lymphocytes Percent Auto 4.9 % (25-40); Mean Corpuscular HGB Conc 33.4 % (30-36); Mean Corpuscular Hemoglobin 30.9 PG (26-34); Mean Corpuscular Volume 92.7 fL (80-100); Monocytes Absolute Auto 500 /uL (0-900); Monocytes Percent Auto 5.2 % (3-14); Neutrophils Absolute Auto 8600 /uL (1500-7000); Neutrophils Percent Auto 89.2 % (50-75); Platelet Count 94 X10^3/uL (150-400); Red Blood Cell Count 2.75 X10^6/uL (4.0-5.2); Red Cell Distribution Width 15.2 % (11.6-14.8); White Blood Cell Count 9.7 X10^3/uL (4.5-11.0)
--- NOTE | 2019-11-14 07:40 | P.PN_ITS ---
Subjective Subjective Date Patient Seen: 11/14/19 Time Patient Seen: 07:40 Interval history: POD #1 s/p left total hip arthroplasty with Dr. Urena. Her pain has been well controlled. She does have a history of restless leg syndrome and has not had her Mirapex dose yet. She is resting comfortably in bed with her abduction pillow. She does know as history of a poor healing wound on her left ankle. Exam Vital Signs (past 8 hours): - 11/14/19 03:31 11/14/19 05:00 Temperature 99.8 F H Pulse Rate 68 Respiratory Rate 16 Blood Pressure 118/60 Pulse Oximetry 95 97 Oxygen Delivery Method Room Air Oxygen Flow Rate 0 Narrative Exam Narrative: Patient lying in bed in no acute distress. She is alert and oriented x3. Calves are soft, compressible, nontender bilaterally. SCDs were on and functioning. ASA for DVT prophylaxis. 1 cm superficial wound on medial aspect of left ankle with good granulation tissue. Aquacel dressing on left hip is CDI. She is able to actively dorsiflex and plantar flex. Objective Labs Result Diagrams: 11/14/19 04:45 11/14/19 04:45 Labs: Laboratory Results - last 24 hr 11/13/19 11/14/19 11/14/19 14:45 04:45 04:45 WBC 9.7 RBC 2.75 L Hgb 9.6 L 8.5 L Hct 28.6 L 25.5 L MCV 92.7 MCH 30.9 MCHC 33.4 RDW 15.2 H Plt Count 94 L Neut % (Auto) 89.2 H Lymph % (Auto) 4.9 L [place] % (Auto) 5.2 Eos % (Auto) 0.4 L Baso % (Auto) 0.3 Neut # (Auto) 8600 H Lymph # (Auto) 500 L [place] # (Auto) 500 Eos # (Auto) 0 Baso # (Auto) 0 Sodium 134 L Potassium 5.0 Chloride 105 Carbon Dioxide 24 BUN 25 H Creatinine 0.80 Estimated GFR > 60.0 BUN/Creatinine Ratio 31.3 H Glucose 135 H Calcium 8.3 L Assessment & Plan Post-op Postoperative Procedures: Procedures Operation Date: 11/13/19 09:00 Actual Procedures Side Surgeon p Hip Hemiarthroplasty Left João Uerna MD Patient will mobilize with physical therapy today. Posterior hip precautions. She is to wear her abduction pillow while in bed given history of restless legs syndrome. Mirapex started today. Continue ASA for VTE prophylaxis. Patient will likely need shelter facility for continued care after surgery. Quality VTE Deep Vein Thrombosis/Pulmonary Embolism Present on Admission: No
[2019-11-14] MEDS: ASPIRIN EC 81 MG TABLET PO ×2 (09:18→20:24)
[2019-11-14] MEDS: ACETAMINOPHEN 325 MG TABLET 650 MG PO ×3 (09:18→20:24)
[2019-11-14] MEDS: LOSARTAN 50 MG TABLET 25 MG PO (09:19)
[2019-11-14] MEDS: OXYCODONE IR 5 MG TABLET PO (09:20)
[2019-11-14] MEDS: OXYBUTYNIN 5 MG ER TAB PO (09:21)
[2019-11-14] MEDS: PRAMIPEXOLE 0.25 MG TABLET 0.75 MG PO (09:27)
--- NOTE | 2019-11-14 10:11 | P.PN_ITS ---
Subjective Subjective Date Patient Seen: 11/14/19 Time Patient Seen: 10:12 Interval history: Dorothy Jacob is an 84 y.o. female with multiple sclerosis, hypertension, hyperlipidemia, and hypothyroidism who was admitted after a left femur fracture. She is postoperative day 1 from a left hip arthroplasty. She feels well this morning and states that her pain is well controlled. She has not been ambulatory, but she will work with physical therapy today. She is to lerating food and water without any nausea or vomiting. Exam Vital Signs (past 8 hours): - 11/14/19 03:31 11/14/19 05:00 11/14/19 08:01 Temperature 99.8 F H 98.9 F Pulse Rate 68 89 Respiratory Rate 16 19 Blood Pressure 118/60 112/49 L Pulse Oximetry 95 97 99 Oxygen Delivery Method Room Air Oxygen Flow Rate 0 Narrative Exam Narrative: GENERAL APPEARANCE: Well developed, well nourished, in no acute distress. SKIN: Inspection of the skin reveals no rashes or petechiae. 1 cm superficial wound on medial aspect of left ankle with good granulation tissue HEENT: The sclerae were anicteric and conjunctivae were pink and moist. Extraocular movements were intact and pupils were equal, round with normal a ccommodation. External inspection of the ears and nose showed no scars, lesions, or masses. Lips, teeth, and gums showed normal mucosa. The oral mucosa, hard and soft palate, tongue and posterior pharynx were unremarkable. NECK: Supple and symmetric. There was no thyroid enlargement, and no tenderness, or masses were felt. CHEST: Normal AP diameter and normal contour without any kyphoscoliosis. LUNGS: Auscultation of the lungs revealed no wheezes, rhonchi, or rales. CARDIOVASCULAR: There was a regular rate and rhythm without any murmurs, gallops, rubs. Peripheral pulses were 2+ and symmetric. ABDOMEN: Soft and nontender with normal bowel sounds. No ascites was noted. MUSCULOSKELETAL: There was no tenderness or effusions noted. L hip dressings c/d/i. Muscle tone was normal. EXTREMITIES: No cyanosis, clubbing or edema. NEUROLOGIC: Alert and oriented x 3. Normal affect. Strength is +5/5 in the Upper Extremities and Lower Extremities Bilaterally. Sensation to touch was normal. Objective Labs Result Diagrams: 11/14/19 04:45 11/14/19 04:45 Labs: Laboratory Results - last 24 hr 11/13/19 11/14/19 11/14/19 14:45 04:45 04:45 WBC 9.7 RBC 2.75 L Hgb 9.6 L 8.5 L Hct 28.6 L 25.5 L MCV 92.7 MCH 30.9 MCHC 33.4 RDW 15.2 H Plt Count 94 L Neut % (Auto) 89.2 H Lymph % (Auto) 4.9 L [place] % (Auto) 5.2 Eos % (Auto) 0.4 L Baso % (Auto) 0.3 Neut # (Auto) 8600 H Lymph # (Auto) 500 L [place] # (Auto) 500 Eos # (Auto) 0 Baso # (Auto) 0 Sodium 134 L Potassium 5.0 Chloride 105 Carbon Dioxide 24 BUN 25 H Creatinine 0.80 Estimated GFR > 60.0 BUN/Creatinine Ratio 31.3 H Glucose 135 H Calcium 8.3 L Assessment & Plan Assessment & Plan narrative: Dorothy Jacob is an 84 y.o. female with multiple sc lerosis, hypertension, hyperlipidemia, and hypothyroidism who was admitted after a left femur fracture. She is postoperative day 1 from a left hip arthroplasty on 11/13/19. She is recovering well after surgery. She will likely need discharge to rehab, pending evaluation today with physical therapy. 1. Left femoral neck fracture, acute, present on admission, repaired - now s/p L hip arthoplasty on 11/13/19. - Appreciate orthopedic surgery recommendations. - Posterior hip precautions. She is to wear her abduction pillow while in bed given history of restless legs syndrome. Mirapex started. Continue ASA x6 weeks per orthopedics for VTE prophylaxis. - tylenol and oxycodone currently for pain control. 2. Essential hypertension, chronic and stable, POA Continue home dose of losartan 25 mg po daily 3. Hyperlipidemia, chronic and stable, POA Continue home dose of rosuvastatin 10 mg po at bedtime 4. Hypothyroid, chronic and stable, POA Continue home dose of levothyroxine 112 mcg po daily 5. Multiple sclerosis with urinary incontinence , chronic and stable, POA Continue home dose of oxybuytnin 5 mg po daily continue home cyclosporine ophthalmic drops. patient is followed by Dr. Michael, a neurologist in [place] [facility]. FEN: Heart healthy diet. VTE Prophylaxis: ASA x6 weeks per orthopedics. Disposition: Likely discharge to rehab, pending PT / OT evaluations. Code Status: Full code Quality VTE Deep Vein Thrombosis/Pulmonary Embolism Present on Admission: No
--- NOTE | 2019-11-14 10:13 | OT.IP.EVAL ---
Current Diagnoses Fracture of unspecified part of neck of left femur, initial encounter for closed fracture (11/13/19) Surgery Performed Operation Date: 11/13/19 09:00 Actual Procedures p Hip Hemiarthroplasty(Left) - João Urena MD Past Medical History (Last Reviewed 11/13/19 @ 06:25 by ADRIANA Brower) Hyperlipidemia (Inactive) Hypertension, essential (Inactive) Hypothyroid (Chronic) Left femoral shaft fracture (Acute) Multiple sclerosis (Inactive) Surgical History (Last Reviewed 11/13/19 @ 06:25 by ADRIANA Brower) H/O cataract removal with insertion of prosthetic lens (Acute) H/O esophageal hernia repair (Acute) Occupational Therapy Inpatient Evaluation/Re-Eval M2 OT-IP Current Condition Start: 11/14/19 11:29 Freq: Status: Active Protocol: Document 11/14/19 10:13 [facility] (Rec: 11/14/19 11:52 [facility] [id number]) Occupational Therapy Current Condition Current Condition Evaluation Date 11/14/19 Treatment Diagnosis S/P left total hip arthroplasty, displaced left femoral neck fracture Diagnosis Onset Date 11/13/19 Post Operative Precautions Posterior Hip Precautions No Hip Flexion > 90 degrees,No Hip Internal Rotation,No Hip Adduction Other Precautions Abductor wedge in place while in bed. Weight Bearing Status Weight Bearing Status Weight Bear as Tolerated M3 OT- IP Subjective and Pain Start: 11/14/19 11:29 Freq: Status: Active Protocol: Document 11/14/19 10:13 [facility] (Rec: 11/14/19 11:52 [facility] [id number]) OT- Subjective Occupational Therapy Visit Type Type Initial Evaluation Visit Start Time 10:13 Visit Stop Time 11:00 Total Visit Minutes 47 Occupational Therapy Visit Comments Patient Comments Pt agreeable to get up for OT/ PT eval and initially insisting that she want to go home. But after working with PT/OT states, It is inevitable that I will need to go to skilled rehab first before going home. OT Pain Assessment Pain When Pain Assessed During Mobility Pain Present Pain Present Pain Reported Location Left Hip Intensity 8 Scale Used Numeric (1 - 10) M4 OT- IP ADL's Start: 11/14/19 11:29 Freq: Status: Active Protocol: Document 11/14/19 10:13 [facility] (Rec: 11/14/19 11:52 [facility] [id number]) OT [id number] Comments OT Self-Feeding Comments NOt at meal time. OT ADL-Grooming Comments OT Grooming Comments Pt too tired and wanting to nap and states will do grooming needs later. OT ADL-Dressing General Eval Lower Body Dressing Ability Maximum Assistance Areas Needing Assistance Socks Comments OT Dressing Comments Educated pt of use of automatic typewriter inspector and sock aid and pt needing reminders not to turn in her left foot inward while don/doffing her sock. Pt wears compression stockings at home and will have to have assist as will not be able to do due to hip precautions and arthritis in her hands. OT ADL-Toileting General Evaluation Toileting Ability Total Assistance Comments OT Toileting Comments Mcdonald in place. At this time pt would need two person to assist one to help stand pt and another for pants and hygiene needs. Educated pt would have to lead process engineer order to adhere to hip precautions for hygiene needs. . OT ADL-Bathing Comments OT Bathing Comments Not at this time. Pt states has a roll-in shower at home with grab bars all the way around. M5 OT- IP IADL's Start: 11/14/19 11:29 Freq: Status: Active Protocol: Document 11/14/19 10:13 [facility] (Rec: 11/14/19 11:52 [facility] [id number]) OT-Instrumental Activities of Daily Living Home Safety Awareness Awareness of Need for Assistance at Home Good Awareness Medication Management Medication Management No Deficits Identified Meal Preparation Meal Preparation Comments At this time pt will need assist for all IADL needs. Violin Restorer Violin Restorer Caregiver Provides Assist M6 OT- IP Functional Cognition Start: 11/14/19 11:29 Freq: Status: Active Protocol: Document 11/14/19 10:13 [facility] (Rec: 11/14/19 11:52 [facility] [id number]) Cognitive Factors Limiting Selfcare Function Cognitive Ability Level of Alertness Alert Patient Orientation Name,Place,Situation Attention Span Ability Capable of Focused Attention, Capable of Sustained Attention Ability to Follow Commands Able to Follow One Step Commands Memory Description Short Term Impaired Safety Awareness Decreased Recall of Precautions,Decreased Ability to Apply Precautions, Underestimates Need for Assistance Problem Solving Ability Needs Assist to Identify Solutions Cognitive Comments Cognitive Assessment Comments Pt able to recall 2/3 hip precautions and needing cues for FWW. Education for best way to incorporate hip precautions for mobility needs . Cues to slide her left foot forwards before coming to stand or sitting. OT- Vision and Hearing OT- Hearing Assessment OT- Hearing Assessment WFL OT- Vision Assessment Visual Acuity Glasses All The Time M7 OT- IP Mobility and Balance Start: 11/14/19 11:29 Freq: Status: Active Protocol: Document 11/14/19 10:13 [facility] (Rec: 11/14/19 11:52 [facility] [id number]) OT- Bed Mobility Assessment Supine to Sit Supine to Sit Assist Minimal Assistance,1 Person Assistance,Head of Bed Elevated OT-Transfer Assessment Sit to and From Stand Sit to and from Stand Minimal Assistance,Moderate Assistance,2 Person Assistance Transfers Transfer Ability Moderate Assistance,2 Person Assistance Technique Transfer Destination Bed,Chair Transfer Technique Stand Step Pivot Devices Transfer Assistive Devices Gait Belt,Front Wheeled Walker OT- Balance Assessment Sitting Balance and Reactions Static Sitting Balance Ability Good Dynamic Sitting Balance Ability Fair Standing Balance and Reactions Static Standing Balance Ability Poor Dynamic Standing Balance Ability Poor M8 OT- IP Objective Assessments Start: 11/14/19 11:29 Freq: Status: Active Protocol: Document 11/14/19 10:13 [facility] (Rec: 11/14/19 11:52 [facility] [id number]) OT Gross Range of Motion Upper Extremity Range of Motion Assessment Within Functional Limits OT Strength Comments Strength Comments BUE 4/5 to 4-/5 from proximal to distal. OT- Coordination Assessment Comments Coordination Comments Arthritic changes in hands therefore will need assist for FMS needs. OT-Muscle Tone Assessment Muscle Tone WNL Yes M9 OT- IP Assessment and Plan Start: 11/14/19 11:29 Freq: Status: Active Protocol: Document 11/14/19 10:13 [facility] (Rec: 11/14/19 11:52 [facility] [id number]) OT Summary Assessment and Plan Potential Rehabilitation Potential Good Analytic Complexity at Evaluation Low Summary OT Impairments Pain,Strength,Balance, Functional Cognition, Functional Mobility,Grooming, Dressing,Toileting,Bathing, Toilet Transfers,Shower Transfers Progress Towards Goals Slow Progress due to Pain,Slow Progress due to Activity Tolerance Assessment Summary Pt low complexity and main barriers are now needing two person assist for mobility and ADl needs. Pt just only able to tolerate transfer at this time with MODA X 2 with FWW and only able to shuffle her feet side to side to move and not able to shrimp picker her feet at this time. Pt is far from baseline and prior was MOD I with FWW. Recommend pt go to skilled rehab. Goals Grooming Goal Independent Dressing Goal Minimal Assistance Toileting Goal Standby Assistance Bathing Goal Moderate Assistance Toilet Transfer Goal Standby Assistance Shower Transfer Goal Minimal Assistance Patient/Caregiver Education Goal Caregiver Independent Assisting Patient Days to Meet Goals 10 Frequency of Treatment Frequency Of Treatment Once a Day Treatment Plan OT Treatment Plan ADL Training,Functional Cognition Training,Functional Mobility,Patient/Family Education,Discharge Planning Other Treatment Recommendations and [place] [facility], Treatment Focus hip precaution education for ADL needs Discharge Recommendations OT Discharge Recommendations SNF Rehab Home Equipment Needs Defer to SNF
--- NOTE | 2019-11-14 11:11 | PT.IIE ---
Current Diagnoses Fracture of unspecified part of neck of left femur, initial encounter for closed fracture (11/13/19) Surgery Performed Operation Date: 11/13/19 09:00 Actual Procedures p Hip Hemiarthroplasty(Left) - João Urena MD Surgical History (Last Reviewed 11/13/19 @ 06:25 by ADRIANA Brower) H/O cataract removal with insertion of prosthetic lens (Acute) H/O esophageal hernia repair (Acute) Medical History (Last Reviewed 11/13/19 @ 06:25 by ADRIANA Brower) Hyperlipidemia (Inactive) Hypertension, essential (Inactive) Hypothyroid (Chronic) Left femoral shaft fracture (Acute) Multiple sclerosis (Inactive) Physical Therapy Inpatient Evaluation/Re-Eval M1 PT/OT-IP Prior Functional Status Start: 11/13/19 14:23 Freq: NEEDED Status: Active Protocol: Document 11/14/19 10:34 AW (Rec: 11/14/19 11:10 AW [id number]) Medical Review Prior Functional Status Medical History Reviewed Yes Diet/Fluid Consistency Regular Communication WNL Mobility and Gait Pt reports using FWW at home/ in facility and 4WW out in the community. Activities of Daily Living and IADL's Pt reports indep with dressing and bathing and is provided meals at her facility but does some of her own simple cooking. She is supplied some light cleaning. Prior Functional Level (Other details) Pt was active, attending chair exercise 2-3 times/week and frequently walking around [employer] Social History Household Members children Living Arrangements [facility] Number of Floors (Floors) One Floor Home Environment Standard Height Toilet,Walk in Shower Home Equipment Shower Seat with Backrest,Grab Bars In Shower Employment Status Retired Additional Social History Comment Pt reports her daughter has physical problems but could help her some. Pt lives at [facility]. M2 PT-IP Current Condition Start: 11/13/19 14:23 Freq: NEEDED Status: Active Protocol: Document 11/14/19 10:34 AW (Rec: 11/14/19 11:10 AW [id number]) Physical Therapy Current Condition Current Condition Evaluation Date 11/14/19 Treatment Diagnosis s/p L hip hemiarthroplasty; impaired mobiltiy Onset Date 11/13/19 Precautions Posterior Hip Precautions No Hip Flexion > 90 degrees,No Hip Internal Rotation,No Hip Adduction Other Precautions Abduction pillow while in bed due to history of restless leg syndrome. Weight Bearing Status Weight Bearing Status Weight Bear as Tolerated M3 PT-IP Subjective Start: 11/13/19 14:23 Freq: NEEDED Status: Active Protocol: Document 11/14/19 10:34 AW (Rec: 11/14/19 11:10 AW [id number]) Subjective Physical Therapy Visit Type Type Initial Evaluation Visit Start Time 10:00 Visit Stop Time 10:31 Total Visit Minutes 31 Notes Pt seen with OT Number of LOCAL DRIVER Visits 0 Physical Therapy Visit Comments Patient Comments Pt is fearful of falling, but open to attempting mobility Patient Goals Pt strongly prefers discharge to home but understands she may need to consider SNF Therapy Pain Assessment Pain When Pain Assessed At Rest Pain Present Pain Present Pain Reported Location Left Hip Intensity 8 Scale Used 8/10 sudden pain assoc with RLS spasm Pain Management Techniques Distraction,Timing of Activity with Medications M4 PT-IP Mobility and Gait Start: 11/13/19 14:23 Freq: NEEDED Status: Active Protocol: Document 11/14/19 10:34 AW (Rec: 11/14/19 11:10 AW [id number]) PT-Bed Mobility Assessment Supine to Sit Supine to Sit Minimal Assistance,1 Person Assistance,Head of Bed Elevated,Bedrails PT-Transfer Assessment Sit to and From Stand Sit to and from Stand Minimal Assistance,Moderate Assistance,2 Person Assistance ,Use of Upper Extremities Equipment Transfer Assistive Device Gait Belt,Front Wheeled Walker Orthotic/Prosthetic Devices or Brace: No Transfers Transfer Destination Chair Transfer Technique Stand Step Pivot Transfer Ability Level of Assist Minimal Assistance,2 Person Assistance,Use of Upper Extremities Comments Mobility Comments Pt completed supine to sit transfer to right side of bed min A x 1 with HOB elavated and with use of bedrails to pull upright, therapist supporting the operative leg. At home, pt sleeps in an adjustable bed. Initial attempt at sit to stand required mod A x [address] the operative leg out in front to maintain posterior hip precautions. In standing, pt was hesitant to bear weight through her forefeet, leaning posteriorly and to the right. She was able to correct her posture in response to cues. Subsequent attempts to stand were completed min A x 2. Pt ambulated ~2 feet to the bedside chair with FWW min A x 2 plus verbal and tactile cues for walker management. Her feet barely cleared the floor, using more of a shuffling pattern. Transfer to chair was completed min A x 2 and verbal cues with pt demonstrating good eccentric control. Pt was positioned in the chair and left with OT. Gait Assessment Gait Gait Assistance Required: Minimum Assistance,2 Person Assist Distance (Feet) 2 Able to Maintain Weight Bearing Status Yes During Gait Assistive Devices Assistive Device Gait Belt,Front Wheeled Walker Orthotic/Prosthetic Devices or Brace: No Gait Deviations General Gait Pattern Antalgic,Decreased Stride Length,Decreased Feet Clearance,Flexed Trunk,Step-to Gait Factors Limiting Gait Function Factors Limiting Gait Function Decreased Activity Tolerance, Decreased Sensation,Decreased Strength,Pain Comments Gait Comments See mobility comments. Stair Climbing Assessment Comments Stair Climbing Comments Not assessed. PT-Balance Assessment Sitting Balance and Reactions Static Sitting Balance Ability Good Dynamic Sitting Balance Ability Good Standing Balance and Reactions Static Standing Balance Ability Fair Dynamic Standing Balance Ability Poor Device Used FWW M5 PT-IP Objective Assessments Start: 11/13/19 14:23 Freq: NEEDED Status: Active Protocol: Document 11/14/19 10:34 AW (Rec: 11/14/19 11:10 AW [id number]) Orientation Orientation/Cognition Level of Alertness Alert Orientation Name,Month,Place,Situation Language Function Ability No Deficits Noted Safety Awareness Understands Safety Issues Memory Description No Deficits Noted Gross Range of Motion Lower Extremity ROM Assessment Right Impaired Impairments Pt reports new pain in right anterior chest wall/axilla, worse with palpation. She denied shortness of breath or increased pain with exertion. Strength Lower Extremity Strength Assessment Left Impaired Hip R 4-/5 Knee R 4+/5 Ankle B 4-/5 Coordination Assessment Gross Coordination Gross Coordination WNL Sensation Assessment Sensation Gross Sensation Left LE Impaired Sensation Description [place] Comments Sensation Comments Pt with history of MS affecting sensation of distal left LE M6 PT-IP Treatment Start: 11/13/19 14:23 Freq: NEEDED Status: Active Protocol: Document 11/14/19 10:34 AW (Rec: 11/14/19 11:10 AW [id number]) Physical Therapy Treatment Education Education Provided Precautions,Weight Bearing Status,Safety Other Treatments Other Treatment Performed Educated pt on PT plan of care , weightbearing status, need for abduction pillow, and safe use of FWW. M7 PT-IP Assessment and Plan Start: 11/13/19 14:23 Freq: NEEDED Status: Active Protocol: Document 11/14/19 10:34 AW (Rec: 11/14/19 11:10 AW [id number]) PT Summary Assessment and Plan Potential Rehabilitation Potential Good Status of Condition at Evaluation Stable Summary Impairments Pain,ROM,Strength,Balance, Sensation,Bed Mobility, Transfers,Gait,Activity Tolerance Assessment Summary Dorothy is an 84 yo woman with history of MS who was seen for PT evaluation on POD1 following left hip hemiarthroplasty resulting from a GLF. At baseline, she remains active and ambulates with FWW or 4WW at all times. She has lived at [facility] since March and receives no assist there other than meals. She lives with her daughter who is able to provide assist with household management but not with physical needs. On evaluation, pt required min to mod A x 2 for all mobility. She will require SNF rehab to address strength, balance, mobility, and self-care deficits before expected return to [facility]. Goals Bed Mobility Goal Standby Assistance Transfer Goal Standby Assistance,Front Wheeled Walker Gait Goal Standby Assistance,Front Wheel Walker Gait Distance 100 Days to Meet Goals 10 Frequency of Treatment Frequency Of Treatment Twice a Day Treatment Plan Physical Therapy Treatment Plan Bed Mobility Training,Transfer Training,Gait Training, Therapeutic Exercise,Balance Retraining,Post Op Education, Discharge Planning,Hot or Cold Pack,Neuromuscular Re-ed, Coordination Retraining,Manual Therapy Other Recommendations and Next Treatment bed mobility, transfers, gait Focus Recommendations To Nursing Amount of Assist Needed 2 Person Assist Discharge Recommendations PT Discharge Recommendations SNF Rehab Equipment Needed for Home Before defer to rehab setting Discharge
[2019-11-14] MEDS: LACTATED RINGERS 1,000 ML 100 ML IV (11:29)
--- NOTE | 2019-11-14 11:54 | CM.DPC ---
Addendum entered by MARYLOU Romero 11/14/19 13:19: ADD: KERLINE attempted to call [facility] admissions again and left another [facility] but due to pt's outstanding balance at [facility] and her need for insurance auth for SNF then SW called [facility] and they can accept and will begin working on [employer] insurance auth for SNF today so that it will be in place by the time pt is ready for d/c. Original Note: DCP SNF Planning: Per MD and Ortho PA, pt to work with therapy today and likely will require SNF rehab prior to safe return home. Per PT/OT, pt was hopeful for d/c home but currently 2PA and unsteady and aware that their recommendation is SNF at d/c. SW met bedside with pt and explained role again and discussed PT/OT/MD recommendation of SNF and pt states she is aware that she will not be safe for d/c directly home. SW provided pt with the SNF Choice List and pt states her preference would be to remain in [place] but that she still has an outstanding balance she believes from her previous stay at [facility]. SW discussed the next closest SNF would be in [place] or and pt states she does not have preference between the 3 SNF's in that area but is leaning towards [facility]. Pt states she would prefer if SW inquire with [facility] if they could accept her with an outstanding balance and if [facility] is not an option then she would prefer [facility]. KERLINE called [facility] and left [facility] for admissions requesting review and informed them of pt's need for [employer] [facility] Adv auth and possible outstanding balance and then faxed clinicals to review to determine if they can accept. KERLINE called [facility] admissions with new referral and faxed clinicals and they will wait for a while to hear if [facility] can accept before working on insurance auth today. PASRR completed in anticipation of SNF. Plan: KERLINE to follow for decision from [facility] if they can accept before updating [facility] to determine which SNF should begin insurance auth process for SNF. MARYLOU Romero
--- NOTE | 2019-11-14 13:57 | PC.NURSE ---
Ortho: Biggest issue was her restless leg syndrome and needing her mirapex as she takes it at home. This was done and a dose given. Pt was able to sleep this afternoon and reported she was feeling better and not having muscle spams like she was earlier this am. Neurovasc intact, ppp, feet =/cool, brisk cap refill, has needed 1 dose of oxycodone for pain which was effective. Ice packs have been off and on per pt comfort.Sits quietly in the chair at the moment.
--- NOTE | 2019-11-14 14:47 | PT.IPTN ---
Current Diagnoses Fracture of unspecified part of neck of left femur, initial encounter for closed fracture (11/13/19) Surgery Performed Operation Date: 11/13/19 09:00 Actual Procedures p Hip Hemiarthroplasty(Left) - João Urena MD Physical Therapy Treatment Note M2 PT-IP Current Condition Start: 11/13/19 14:23 Freq: NEEDED Status: Active Protocol: Document 11/14/19 10:34 AW (Rec: 11/14/19 11:10 AW [id number]) Physical Therapy Current Condition Current Condition Evaluation Date 11/14/19 Treatment Diagnosis s/p L hip hemiarthroplasty; impaired mobiltiy Onset Date 11/13/19 Precautions Posterior Hip Precautions No Hip Flexion > 90 degrees,No Hip Internal Rotation,No Hip Adduction Other Precautions Abduction pillow while in bed due to history of restless leg syndrome. Weight Bearing Status Weight Bearing Status Weight Bear as Tolerated M3 PT-IP Subjective Start: 11/13/19 14:23 Freq: NEEDED Status: Active Protocol: Document 11/14/19 14:00 SP (Rec: 11/14/19 15:17 SP [email or web address]) Subjective Physical Therapy Visit Type Type Treatment Note Visit Start Time 14:00 Visit Stop Time 14:47 Total Visit Minutes 47 Physical Therapy Visit Comments Patient Comments Pt willing to work with PT. Pt reported R lateral ribcage under arm hurt when lifts R her arm over head and was pressing on the area wondering why hurting and realized didn 't feel very good so stopped. Patient Goals Pt wants to get back into bed. Pt realizes not moving as well as did before and may need consider SNF. Therapy Pain Assessment Pain When Pain Assessed At Rest Pain Present Pain Present Pain Reported Location Left Hip Intensity 4 Scale Used 4/10 L lateral hip, 5-6/10 during mobility. Pain Management Techniques Apply Cold,Re-positioning, Timing of Activity with Medications M4 PT-IP Mobility and Gait Start: 11/13/19 14:23 Freq: NEEDED Status: Active Protocol: Document 11/14/19 14:00 SP (Rec: 11/14/19 15:17 SP [id number]) PT-Bed Mobility Assessment Rolling Type of Rolling Bilateral Level of Assist Moderate Assistance,1 Person Assistance Sit to Supine Sit to Supine Moderate Assistance,1 Person Assistance,Bedrails Scooting Scooting Up and Down in Bed Moderate Assistance PT-Transfer Assessment Sit to and From Stand Sit to and from Stand Minimal Assistance,Moderate Assistance,2 Person Assistance ,Use of Upper Extremities Equipment Transfer Assistive Device Gait Belt,Front Wheeled Walker Transfers Transfer Destination Bed Transfer Technique Stand Step Pivot Transfer Ability Level of Assist Minimal Assistance,1 Person Assistance,Use of Upper Extremities Comments Mobility Comments Pt was up in chair when arrived. Pt was able to scoot to EO chair herself. Pt completed sit to stand from chair with Mod A of 2 on first attempt, cuing for LLE forward positioning prior to stand to stay within L posterior hip precautions >90 deg hip flexion while transitioning to standing then push up with BUE and timing transition to FWW. Pt initially didn't put much pressure on LLE but improved once repositioned under her. Instructed pre gait wt shift between BLE and knee flexion LLE to allow for stepping during tranfer. Pt was able to step pivot transfer chair to bed 5 and 4 steps initially lifting LLE and scoot pivoting RLE but improved with cuing for allow BUE WB with tolerated WB on LLE and cuing for body positioning step to L and backing up to bed then left toward HOB. Pt performed good hand placement and slow descent to sitting EOB with LLE slight out in front. Pt required Mod A to support L>R LE into bed during sitting> supine and scoot up EOB with cuing for BUE WB on bed and RLE knee bent to complete scooting to center and up in bed. Pt reported pain level increased to 5-6/10 during mobility and welcoming to cold pack to her L hip for pain control. Pt was laying in bed with call light and all needs within reach, nurse and dental ceramist assistant in room when left. Pt's vital stable pre mobility : BP 136/74, HR 74, O2 sat 97% on room air. Gait Assessment Gait Gait Assistance Required: Minimum Assistance,1 Person Assist Distance (Feet) 5 Able to Maintain Weight Bearing Status Yes During Gait Assistive Devices Assistive Device Gait Belt,Front Wheeled Walker Orthotic/Prosthetic Devices or Brace: No Gait Deviations General Gait Pattern Antalgic,Decreased Stride Length,Decreased Feet Clearance,Flexed Trunk,Step-to Gait Factors Limiting Gait Function Factors Limiting Gait Function Decreased Activity Tolerance, Decreased Sensation,Decreased Strength,Pain Comments Gait Comments Pt was able side and back step initially RLE scoot twist pivot with increase WB through LLE as steps progressed with encouragement in patterning and foot/FWW positioning, able to completely lift RLE by end of distance chair to bed and side step R up to HOB Min A x1 usign FWW. Stair Climbing Assessment Comments Stair Climbing Comments not assessed. PT-Balance Assessment Sitting Balance and Reactions Static Sitting Balance Ability Good Dynamic Sitting Balance Ability Good Standing Balance and Reactions Static Standing Balance Ability Fair Dynamic Standing Balance Ability Fair Device Used FWW M5 PT-IP Objective Assessments Start: 11/13/19 14:23 Freq: NEEDED Status: Active Protocol: Document 11/14/19 10:34 AW (Rec: 11/14/19 11:10 AW [id number]) Orientation Orientation/Cognition Level of Alertness Alert Orientation Name,Month,Place,Situation Language Function Ability No Deficits Noted Safety Awareness Understands Safety Issues Memory Description No Deficits Noted Gross Range of Motion Lower Extremity ROM Assessment Right Impaired Impairments Pt reports new pain in right anterior chest wall/axilla, worse with palpation. She denied shortness of breath or increased pain with exertion. Strength Lower Extremity Strength Assessment Left Impaired Hip R 4-/5 Knee R 4+/5 Ankle B 4-/5 Coordination Assessment Gross Coordination Gross Coordination WNL Sensation Assessment Sensation Gross Sensation Left LE Impaired Sensation Description [place] Comments Sensation Comments Pt with history of MS affecting sensation of distal left LE M6 PT-IP Treatment Start: 11/13/19 14:23 Freq: NEEDED Status: Active Protocol: Document 11/14/19 14:00 SP (Rec: 11/14/19 15:17 SP [email or web address]) Physical Therapy Treatment Exercises Exercises Ankle Pumps,Gluteal Sets, Seated Knee Flexion/Extension Education Education Provided Precautions,Weight Bearing Status,Safety Other Treatments Other Treatment Performed Reviewed with pt on PT plan of care, weightbearing status, need for abduction pillow, and safe use of FWW. M7 PT-IP Assessment and Plan Start: 11/13/19 14:23 Freq: NEEDED Status: Active Protocol: Document 11/14/19 14:00 SP (Rec: 11/14/19 15:17 SP [id number]) PT Summary Assessment and Plan Potential Rehabilitation Potential Good Status of Condition at Evaluation Evolving Summary Impairments Pain,ROM,Strength,Balance, Sensation,Bed Mobility, Transfers,Gait,Activity Tolerance Assessment Summary Pt required min to mod A x 2 persons for sit to stand from chair, Min A during short distance gait chair to bed step to gait using FWW, Mod A of 1 sitting to supine for BLE support into bed. She will require SNF rehab to address strength, balance, mobility, and self-care deficits [facility]. Goals Bed Mobility Goal Standby Assistance Transfer Goal Standby Assistance,Front Wheeled Walker Gait Goal Standby Assistance,Front Wheel Walker Gait Distance 100 Days to Meet Goals 10 Frequency of Treatment Frequency Of Treatment Twice a Day Treatment Plan Physical Therapy Treatment Plan Bed Mobility Training,Transfer Training,Gait Training, Therapeutic Exercise,Balance Retraining,Post Op Education, Discharge Planning,Hot or Cold Pack,Neuromuscular Re-ed, Coordination Retraining,Manual Therapy Other Recommendations and Next Treatment bed mobility, transfers, gait Focus Recommendations To Nursing Amount of Assist Needed 2 Person Assist Discharge Recommendations PT Discharge Recommendations SNF Rehab Equipment Needed for Home Before defer to rehab setting Discharge
[2019-11-14] MEDS: ROSUVASTATIN 10 MG TABLET PO (20:24)
[2019-11-15 00:40] VITALS: BP 127/55; PULSE 65; RESP 16; TEMP 37.3; O2SAT 96
[2019-11-15 05:25] VITALS: BP 139/76; PULSE 71; RESP 16; TEMP 37.5; O2SAT 100
[2019-11-15] MEDS: LEVOTHYROXINE 112 MCG TABLET PO (06:01)
[2019-11-15 07:27] VITALS: BP 145/71; PULSE 70; RESP 16; TEMP 37.3; O2SAT 97
[2019-11-15 07:35] VITALS: O2SAT 97
--- NOTE | 2019-11-15 08:11 | P.PN_ITS ---
Subjective Subjective Date Patient Seen: 11/15/19 Time Patient Seen: 08:12 Interval history: Hospital day 3, postop day 2 following left femoral neck fracture with hemiarthroplasty done by Dr. Urena. She has remained stable postoperatively. She is using a abduction brace swelling and bed. Patient does have MS. Both PT and OT feel patient is candidate for SNF. Pain is being controlled mostly with Tylenol. She has had 1 dose of oxycodone. Weightbearing as tolerated. Exam Vital Signs (past 8 hours): - 11/15/19 00:40 11/15/19 05:25 Temperature 99.2 F 99.5 F Pulse Rate 65 71 Respiratory Rate 16 16 Blood Pressure 127/55 L 139/76 Pulse Oximetry 96 100 Oxygen Delivery Method Room Air Oxygen Flow Rate 0 Narrative Exam Narrative: Alert, oriented no acute distress resting in bed. Left leg. Aquacel dressing to left lateral hip is dry without drainage or inflammation. No calf pain or swelling. Abduction brace in place. Good pulses distally. Objective Labs Result Diagrams: 11/14/19 04:45 11/14/19 04:45 Assessment & Plan Post-op Postoperative Procedures: Procedures Operation Date: 11/13/19 09:00 Actual Procedures Side Surgeon p Hip Hemiarthroplasty Left João Urena MD Plan: Patient will continue working with PT and OT. At this time information systems planner is anticipating transfer to [facility] probably tomorrow. Quality VTE Deep Vein Thrombosis/Pulmonary Embolism Present on Admission: No
[2019-11-15] MEDS: ACETAMINOPHEN 325 MG TABLET 650 MG PO ×2 (08:34→14:18)
[2019-11-15] MEDS: OXYBUTYNIN 5 MG ER TAB PO (08:34)
[2019-11-15] MEDS: PRAMIPEXOLE 0.25 MG TABLET 0.75 MG PO (08:35)
[2019-11-15] MEDS: OXYCODONE IR 5 MG TABLET PO ×2 (08:36→14:20)
[2019-11-15] MEDS: ASPIRIN EC 81 MG TABLET PO (08:37)
[2019-11-15] MEDS: LOSARTAN 50 MG TABLET 25 MG PO (08:37)
--- NOTE | 2019-11-15 08:47 | CM.DANOTE ---
DCP continued: Reviewed chart. Received call from Francisco at [facility] indicating that they can accept at time of dc. He will submit request for authorization today. In addition, spoke with Macey at [facility], she reports that they can too accept and that she has already obtained authorization. Met with patient re: the above. Patient reports that she would prefer to stay in town. However, she is unclear whether or not [facility] jen accept her due to her/insurance owing them money from previous stay. Spoke again with Francisco including patient's concerns. Francisco checked with [facility] administration and they report that patient is okay to accept. Therefore, current plan is for patient to go to [facility] which is expected tomorrow 11-16-19 when medically stable. Patient, provider, and both facilities made aware of the above. P: [facility] tomorrow. PASRR completed. MARYLOU Gary
--- NOTE | 2019-11-15 10:21 | DI.RAD.S_ITS ---
PROCEDURE: XR RIBS RT 2V INDICATIONS: R sided rib pain, assess for fx. TECHNIQUE: 2 views of the right ribs were acquired. COMPARISON: [facility], CR, XR HIP W PEL IF DONE LT 2V, 11/13/2019, 4:44. [facility], CR, XR FEMUR LT MIN 2V, 11/13/2019, 4:44. [facility], CR, XR PELVIS 1-2V, 11/13/2019, 11:33. FINDINGS: Surgical changes and devices: None. Bones and chest wall: Acute right sixth rib fracture with mild displacement is identified. There are old right ninth and 10th rib fractures. Left inferior with fractures of uncertain chronicity. No suspicious bony lesions. Overlying soft tissues appear unremarkable. Lungs and pleura: The visualized lung appears clear. Slight blunting of the left costophrenic angle. No pneumothorax are visible. IMPRESSION: 1. Acute right sixth rib fracture with mild displacement. 2. Old left ninth and 10th rib fractures. 3. Left inferior rib fractures of uncertain chronicity. 4. Slight blunting of the left costophrenic angle may be secondary to pleural thickening or small left effusion. Dictated by: Perry Valencia M.D. on 11/15/2019 at 11:50 Approved by: Perry Valencia M.D. on 11/15/2019 at 11:56
--- NOTE | 2019-11-15 10:42 | OT.IP.TRT ---
Current Diagnoses Fracture of unspecified part of neck of left femur, initial encounter for closed fracture (11/13/19) Surgery Performed Operation Date: 11/13/19 09:00 Actual Procedures p Hip Hemiarthroplasty(Left) - João Urena MD Occupational Therapy Treatment Note M2 OT-IP Current Condition Start: 11/14/19 11:29 Freq: Status: Active Protocol: Document 11/14/19 10:13 [facility] (Rec: 11/14/19 11:52 [facility] [id number]) Occupational Therapy Current Condition Current Condition Evaluation Date 11/14/19 Treatment Diagnosis S/P left total hip arthroplasty, displaced left femoral neck fracture Diagnosis Onset Date 11/13/19 Post Operative Precautions Posterior Hip Precautions No Hip Flexion > 90 degrees,No Hip Internal Rotation,No Hip Adduction Other Precautions Abductor wedge in place while in bed. Weight Bearing Status Weight Bearing Status Weight Bear as Tolerated M3 OT- IP Subjective and Pain Start: 11/14/19 11:29 Freq: Status: Active Protocol: Document 11/15/19 10:46 [facility] (Rec: 11/15/19 10:56 CGR [id number]) OT- Subjective Occupational Therapy Visit Type Type Treatment Note Visit Start Time 10:15 Visit Stop Time 10:42 Total Visit Minutes 27 Notes Transport arrived as pt performing supine to sit. Session cut short to ambulation to w/c for transport down for chest xray. Occupational Therapy Visit Comments Patient Comments I am feeling much better today but I have a sensitive spot on my L heal that can't be touched. OT Pain Assessment Pain When Pain Assessed During Mobility Pain Present Pain Present Pain Reported Location Left Hip Intensity 3 Scale Used Numeric (1 - 10) Management Techniques Modification of Treatment,Re- positioning M4 OT- IP ADL's Start: 11/14/19 11:29 Freq: Status: Active Protocol: Document 11/15/19 10:46 CGR (Rec: 11/15/19 10:56 CGR [id number]) OT [id number] Comments OT Self-Feeding Comments Pt finishing breakfast as OT entered. Pt feeding with IND. OT ADL-Grooming Comments OT Grooming Comments Not performed OT ADL-Oral Care Comments Oral Care Comments Not performed OT ADL-Dressing General Eval Lower Body Dressing Ability Total Assistance Comments OT Dressing Comments Pt needed assist to reach her RLE OT ADL-Toileting Comments OT Toileting Comments Pt with bhat. Initially reluctant to have bhat removed but agreeable after seeing progress with her transfer. Notified nursing. OT ADL-Bathing Comments OT Bathing Comments Not performed in this session. M5 OT- IP IADL's Start: 11/14/19 11:29 Freq: Status: Active Protocol: Document 11/14/19 10:13 [facility] (Rec: 11/14/19 11:52 [facility] [id number]) OT-Instrumental Activities of Daily Living Home Safety Awareness Awareness of Need for Assistance at Home Good Awareness Medication Management Medication Management No Deficits Identified Meal Preparation Meal Preparation Comments At this time pt will need assist for all IADL needs. Assistant Food Service Director Assistant Food Service Director Caregiver Provides Assist M6 OT- IP Functional Cognition Start: 11/14/19 11:29 Freq: Status: Active Protocol: Document 11/14/19 10:13 [facility] (Rec: 11/14/19 11:52 [facility] [id number]) Cognitive Factors Limiting Selfcare Function Cognitive Ability Level of Alertness Alert Patient Orientation Name,Place,Situation Attention Span Ability Capable of Focused Attention, Capable of Sustained Attention Ability to Follow Commands Able to Follow One Step Commands Memory Description Short Term Impaired Safety Awareness Decreased Recall of Precautions,Decreased Ability to Apply Precautions, Underestimates Need for Assistance Problem Solving Ability Needs Assist to Identify Solutions Cognitive Comments Cognitive Assessment Comments Pt able to recall 2/3 hip precautions and needing cues for FWW. Education for best way to incorpatae hip precautions for mobility needs . Cues to slide her left foot forwards before coming to stand or sitting. OT- Vision and Hearing OT- Hearing Assessment OT- Hearing Assessment WFL OT- Vision Assessment Visual Acuity Glasses All The Time M7 OT- IP Mobility and Balance Start: 11/14/19 11:29 Freq: Status: Active Protocol: Document 11/15/19 10:46 [facility] (Rec: 11/15/19 10:56 CGR [email or web address]) OT- Bed Mobility Assessment Supine to Sit Supine to Sit Assist Minimal Assistance,1 Person Assistance,Head of Bed Elevated,Bedrails Scooting Scooting to Edge of Bed Contact Guard Assistance,1 Person Assistance,Head of Bed Elevated,Bedrails OT-Transfer Assessment Sit to and From Stand Sit to and from Stand Minimal Assistance,1 Person Assistance Transfers Transfer Ability Minimal Assistance,1 Person Assistance Technique Transfer Destination Bed,Wheelchair Transfer Technique Stand Step Pivot Devices Transfer Assistive Devices Bed Rail,Gait Belt,Front Wheeled Walker Comments Mobility Comments Pt needed Vc for foot placement and extra time for transfer but minimal physical assist. OT- Gait Assessment Gait Gait Assistance Required: Minimum Assistance,1 Person Assist Assistive Devices Assistive Device Gait Belt,Front Wheeled Walker Comments Gait Ability Comments Pt needed VC for janina with use of walker but was able to ambulate to w/c ~5 feet with extra time and min a using a gait belt. Note that gait belt donned low around waist to avoid pain in the R pec area. OT- Balance Assessment Sitting Balance and Reactions Static Sitting Balance Ability Good M8 OT- IP Objective Assessments Start: 11/14/19 11:29 Freq: Status: Active Protocol: Document 11/14/19 10:13 [facility] (Rec: 11/14/19 11:52 [facility] [id number]) OT Gross Range of Motion Upper Extremity Range of Motion Assessment Within Functional Limits OT Strength Comments Strength Comments BUE 4/5 to 4-/5 from proximal to distal. OT- Coordination Assessment Comments Coordination Comments Arthritic changes in hands therefore will need assist for FMS needs. OT-Muscle Tone Assessment Muscle Tone WNL Yes M9 OT- IP Assessment and Plan Start: 11/14/19 11:29 Freq: Status: Active Protocol: Document 11/15/19 10:46 [facility] (Rec: 11/15/19 10:56 CGR [id number]) OT Summary Assessment and Plan Potential Rehabilitation Potential Excellent Analytic Complexity at Evaluation Low Summary OT Impairments Pain,Strength,Balance, Functional Cognition, Functional Mobility,Grooming, Dressing,Toileting,Bathing, Toilet Transfers,Shower Transfers Progress Towards Goals Slow Progress due to Pain,Slow Progress due to Activity Tolerance Assessment Summary Pt tolerated todays session well. Minimal ADLs performed d /t need for pt to transport for imaging. Pt with increased ability to bed mobility and functional mobility on this date but still requiring physical assist for all aspects of mobility and LB ADLs. Recommend pt go to skilled rehab. Goals Grooming Goal Independent Dressing Goal Minimal Assistance Toileting Goal Standby Assistance Bathing Goal Moderate Assistance Toilet Transfer Goal Standby Assistance Shower Transfer Goal Minimal Assistance Patient/Caregiver Education Goal Caregiver Independent Assisting Patient Days to Meet Goals 9 Frequency of Treatment Frequency Of Treatment Once a Day Treatment Plan OT Treatment Plan ADL Training,Functional Cognition Training,Functional Mobility,Patient/Family Education,Discharge Planning Other Treatment Recommendations and Next Shower, hip precaution Treatment Focus education for ADL needs Discharge Recommendations OT Discharge Recommendations SNF Rehab Home Equipment Needs Defer to SNF
--- NOTE | 2019-11-15 11:13 | PT.IPTN ---
Current Diagnoses Fracture of unspecified part of neck of left femur, initial encounter for closed fracture (11/13/19) Surgery Performed Operation Date: 11/13/19 09:00 Actual Procedures p Hip Hemiarthroplasty(Left) - João Urena MD Physical Therapy Treatment Note M2 PT-IP Current Condition Start: 11/13/19 14:23 Freq: NEEDED Status: Active Protocol: Document 11/14/19 10:34 AW (Rec: 11/14/19 11:10 AW [id number]) Physical Therapy Current Condition Current Condition Evaluation Date 11/14/19 Treatment Diagnosis s/p L hip hemiarthroplasty; impaired mobiltiy Onset Date 11/13/19 Precautions Posterior Hip Precautions No Hip Flexion > 90 degrees,No Hip Internal Rotation,No Hip Adduction Other Precautions Abduction pillow while in bed due to history of restless leg syndrome. Weight Bearing Status Weight Bearing Status Weight Bear as Tolerated M3 PT-IP Subjective Start: 11/13/19 14:23 Freq: NEEDED Status: Active Protocol: Document 11/15/19 11:13 AB (Rec: 11/15/19 12:27 AB [id number]) Subjective Physical Therapy Visit Type Type Treatment Note Visit Start Time 11:13 Visit Stop Time 11:34 Total Visit Minutes 21 Notes Received order for hip abductor brace. called MARIA TERESA Motta and clarified order is not for an abductor brace but for pt to have the abductor pillow on only when pt in bed and off when out of bed; no abductor brace needed for pt. 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 Physical Therapy Visit Comments Patient Comments pt agreeable to do PT Therapy Pain Assessment Pain When Pain Assessed At Rest Pain Present Pain Present Pain Reported Location Left Hip Intensity 5 Scale Used Numeric (1 - 10) Description Shooting,With Movement Pain Behaviors Guarding Pain Management Techniques Distraction,Modification of Treatment,Re-positioning, Timing of Activity with Medications M4 PT-IP Mobility and Gait Start: 11/13/19 14:23 Freq: NEEDED Status: Active Protocol: Document 11/15/19 11:13 AB (Rec: 11/15/19 12:27 AB [id number]) PT-Transfer Assessment Sit to and From Stand Sit to and from Stand Maximum Assistance,1 Person Assistance,Use of Upper Extremities Equipment Transfer Assistive Device Gait Belt,Front Wheeled Walker Orthotic/Prosthetic Devices or Brace: No Gait Assessment Gait Gait Assistance Required: Moderate Assistance,1 Person Assist Distance (Feet) 20 Able to Maintain Weight Bearing Status Yes During Gait Assistive Devices Assistive Device Gait Belt,Front Wheeled Walker Orthotic/Prosthetic Devices or Brace: No Gait Deviations General Gait Pattern Antalgic,Decreased Stride Length,Decreased Feet Clearance,Step-to Gait Factors Limiting Gait Function Factors Limiting Gait Function Decreased Activity Tolerance, Decreased Strength,Limited Range of Motion,Pain,Poor Balance,Poor Safety Awareness Comments Gait Comments pt presents with antalgic gait and requires assist with weight shifting to assist pt LLE propulsion. pt also mentioned that she has MS affecting her strength and balance. M5 PT-IP Objective Assessments Start: 11/13/19 14:23 Freq: NEEDED Status: Active Protocol: Document 11/14/19 10:34 AW (Rec: 11/14/19 11:10 AW [id number]) Orientation Orientation/Cognition Level of Alertness Alert Orientation Name,Month,Place,Situation Language Function Ability No Deficits Noted Safety Awareness Understands Safety Issues Memory Description No Deficits Noted Gross Range of Motion Lower Extremity ROM Assessment Right Impaired Impairments Pt reports new pain in right anterior chest wall/axilla, worse with palpation. She denied shortness of breath or increased pain with exertion. Strength Lower Extremity Strength Assessment Left Impaired Hip R 4-/5 Knee R 4+/5 Ankle B 4-/5 Coordination Assessment Gross Coordination Gross Coordination WNL Sensation Assessment Sensation Gross Sensation Left LE Impaired Sensation Description [place] Comments Sensation Comments Pt with history of MS affecting sensation of distal left LE M6 PT-IP Treatment Start: 11/13/19 14:23 Freq: NEEDED Status: Active Protocol: Document 11/15/19 11:13 AB (Rec: 11/15/19 12:27 AB [id number]) Physical Therapy Treatment Education Education Provided Precautions,Safety M7 PT-IP Assessment and Plan Start: 11/13/19 14:23 Freq: NEEDED Status: Active Protocol: Document 11/15/19 11:13 AB (Rec: 11/15/19 12:27 AB [id number]) PT Summary Assessment and Plan Potential Rehabilitation Potential Good Summary Impairments Pain,ROM,Strength,Balance, Coordination,Cognition,Bed Mobility,Transfers,Gait, Activity Tolerance Progress Towards Goals Slow Progress due to Pain,Slow Progress due to Medical Issues,Slow Progress due to Activity Tolerance Assessment Summary pt is progressing slowly but still requires mod to max A with mobility and has decrease activity tolerance affecting independence. pt will benefit from SNF rehab to improve strenght and mobility. Goals Bed Mobility Goal Standby Assistance Transfer Goal Standby Assistance,Front Wheeled Walker Gait Goal Standby Assistance,Front Wheel Walker Gait Distance 100 Days to Meet Goals 10 Frequency of Treatment Frequency Of Treatment Twice a Day Treatment Plan Physical Therapy Treatment Plan Bed Mobility Training,Transfer Training,Gait Training, Therapeutic Exercise,Balance Retraining,Post Op Education, Discharge Planning,Hot or Cold Pack,Neuromuscular Re-ed, Coordination Retraining,Manual Therapy Other Recommendations and Next Treatment bed mobility, transfers, gait Focus Recommendations To Nursing Amount of Assist Needed 1 Person Assist Discharge Recommendations PT Discharge Recommendations SNF Rehab
[2019-11-15 12:00] VITALS: BP 106/57; PULSE 87; RESP 18; TEMP 37; O2SAT 97
[2019-11-15] MEDS: MAGNESIUM HYDROXIDE 30 ML UDC PO (14:18)
--- NOTE | 2019-11-15 15:25 | PT.IPTN ---
Current Diagnoses Fracture of unspecified part of neck of left femur, initial encounter for closed fracture (11/13/19) Surgery Performed Operation Date: 11/13/19 09:00 Actual Procedures p Hip Hemiarthroplasty(Left) - João Urena MD Physical Therapy Treatment Note M2 PT-IP Current Condition Start: 11/13/19 14:23 Freq: NEEDED Status: Discharge Protocol: Document 11/14/19 10:34 AW (Rec: 11/14/19 11:10 AW [id number]) Physical Therapy Current Condition Current Condition Evaluation Date 11/14/19 Treatment Diagnosis s/p L hip hemiarthroplasty; impaired mobiltiy Onset Date 11/13/19 Precautions Posterior Hip Precautions No Hip Flexion > 90 degrees,No Hip Internal Rotation,No Hip Adduction Other Precautions Abduction pillow while in bed due to history of restless leg syndrome. 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 Physical Therapy Visit Comments Patient Comments pt stated that she is tired Therapy Pain Assessment Pain When Pain Assessed During Mobility Pain Present Pain Present Pain Reported Location Left Hip Intensity 6 Scale Used Numeric (1 - 10) Description Sharp Pain Behaviors Facial Grimacing,Guarding, Holding Area Pain Management Techniques Apply Cold,Re-positioning, Timing of Activity with Medications M4 PT-IP Mobility and Gait Start: 11/13/19 14:23 Freq: NEEDED Status: Discharge Protocol: Document 11/15/19 15:25 AB (Rec: 11/15/19 17:07 AB [id number]) PT-Bed Mobility Assessment Supine to Sit Supine to Sit Maximum Assistance,1 Person Assistance,Head of Bed Elevated Sit to Supine Sit to Supine Maximum Assistance,1 Person Assistance Scooting Scooting to Edge of Bed Maximum Assistance PT-Transfer Assessment Sit to and From Stand Sit to and from Stand Maximum Assistance,1 Person Assistance,Use of Upper Extremities Equipment Transfer Assistive Device Gait Belt,Front Wheeled Walker Transfers Transfer Destination Bed Gait Assessment Gait Gait Assistance Required: Moderate Assistance,Maximum Assistance,1 Person Assist Distance (Feet) 20 Able to Maintain Weight Bearing Status Yes During Gait Assistive Devices Assistive Device Gait Belt,Front Wheeled Walker Orthotic/Prosthetic Devices or Brace: No Gait Deviations General Gait Pattern Antalgic,Decreased Stride Length,Decreased Feet Clearance,Step-to Gait Factors Limiting Gait Function Factors Limiting Gait Function Decreased Activity Tolerance, Decreased Strength, Incoordination,Limited Range of Motion,Pain,Poor Balance, Poor Safety Awareness, Respiratory Distress Comments Gait Comments pt c/o increas hip pain during mobility and requires max A wit sit to stand and mod to max A with ambulation using FWW. completed 10+20 ft ambulation using FWW mod to max A and cues. initially requires max A but requires less assistance to mod A towards end of 2nd ambulation. M5 PT-IP Objective Assessments Start: 11/13/19 14:23 Freq: NEEDED Status: Discharge Protocol: Document 11/14/19 10:34 AW (Rec: 11/14/19 11:10 AW [id number]) Orientation Orientation/Cognition Level of Alertness Alert Orientation Name,Month,Place,Situation Language Function Ability No Deficits Noted Safety Awareness Understands Safety Issues Memory Description No Deficits Noted Gross Range of Motion Lower Extremity ROM Assessment Right Impaired Impairments Pt reports new pain in right anterior chest wall/axilla, worse with palpation. She denied shortness of breath or increased pain with exertion. Strength Lower Extremity Strength Assessment Left Impaired Hip R 4-/5 Knee R 4+/5 Ankle B 4-/5 Coordination Assessment Gross Coordination Gross Coordination WNL Sensation Assessment Sensation Gross Sensation Left LE Impaired Sensation Description [place] Comments Sensation Comments Pt with history of MS affecting sensation of distal left LE M6 PT-IP Treatment Start: 11/13/19 14:23 Freq: NEEDED Status: Discharge Protocol: Document 11/15/19 15:25 AB (Rec: 11/15/19 17:07 AB [id number]) Physical Therapy Treatment Education Education Provided Precautions,Weight Bearing Status,Safety M7 PT-IP Assessment and Plan Start: 11/13/19 14:23 Freq: NEEDED Status: Discharge Protocol: Document 11/15/19 15:25 AB (Rec: 11/15/19 17:07 AB [id number]) PT Summary Assessment and Plan Potential Rehabilitation Potential Good Status of Condition at Evaluation Stable Summary Impairments Pain,ROM,Strength,Balance, Coordination,Sensation,Tone, Cognition,Bed Mobility, Transfers,Gait,Activity Tolerance Progress Towards Goals Slow Progress due to Pain,Slow Progress due to Medical Issues Assessment Summary pt requires mod to max A with mobility this afternoon with c /o increase L hip pain during mobility affecting mobility and level of assistance. pt will benefit from SNF rehab. Goals Bed Mobility Goal Standby Assistance Transfer Goal Standby Assistance,Front Wheeled Walker Gait Goal Standby Assistance,Front Wheel Walker Gait Distance 100 Days to Meet Goals 10 Frequency of Treatment Frequency Of Treatment Twice a Day Treatment Plan Physical Therapy Treatment Plan Bed Mobility Training,Transfer Training,Gait Training, Therapeutic Exercise,Balance Retraining,Post Op Education, Discharge Planning,Hot or Cold Pack,Neuromuscular Re-ed, Coordination Retraining,Manual Therapy Other Recommendations and Next Treatment bed mobility, transfers, gait Focus Recommendations To Nursing Amount of Assist Needed 1 Person Assist Discharge Recommendations PT Discharge Recommendations SNF Rehab
--- NOTE | 2019-11-15 15:57 | PM.DS.1 ---
History of Present Illness History of Present Illness Date Patient Seen: 11/15/19 Time Patient Seen: 15:57 Chief complaint: GLF Narrative: As per ADRIANA Brower: Dorothy Jacob is an 84 y.o. female with multiple sclerosis, hypertension, hyperlipidemia, and hypothyroidism was in her usual state of health when she was closing the door to her refrigerator when she slipped and fell. She denies blacking out. She lives in a skilled nursing home in a small apartment and stated the area is cramped and small. Normally uses a walker and was using at the time when she fell. 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 Discharge Providers Provider Date of admission: 11/13/19 05:19 Discharge Date: 11/15/19 Primary care physician: Blayne Sims MD Consults: 11/13/19 05:01 Consult to Orthopedic Surgery Stat Comment: Consulting Provider: Sylvia Swann Reason for consultation: Fem neck Fx Has provider been notified: Yes 11/13/19 05:38 Consult to Physician Routine Comment: Consulting Provider: Sylvia Swann Reason for consultation: left femoral neck fracture Has provider been notified: Yes 11/13/19 12:46 Consult to Discharge Planning Routine Comment: Consult to Physical Therapy Evaluate & Treat Comment: Physician Instructions: post op ALESSIA protocol Consult to Respiratory Therapy Evaluate & Treat Comment: Physician Instructions: Evaluate and treat 11/13/19 12:47 Consult to Respiratory Therapy Evaluate & Treat Comment: Physician Instructions: Evaluate and treat 11/14/19 10:09 Consult to Occupational Therapy Evaluate & Treat Comment: Physician Instructions: Evaluate and treat 11/15/19 08:28 Consult to Physical Therapy Evaluate & Treat Comment: hip abduction brace when in bed x 6 weeks po. Physician Instructions: Evaluate and Treat Discharge provider: Donald Causey DO Summary Hospital Course Discharge Diagnosis: 1. Left femoral neck fracture, acute, present on admission, repaired - now s/p L hip arthoplasty on 11/13/19. Likely pathologic from osteoporosis and ground level fall. - Appreciate orthopedic surgery recommendations. - Posterior hip precautions. She is to wear her abduction pillow while in bed given history of restless legs syndrome. Mirapex started. Continue ASA (81 mg BID) x6 weeks per orthopedics for VTE prophylaxis. - tylenol and oxycodone currently for pain control. 2. Right 6th rib fracture, acute, likely present on admission -likely sustained as a result of her fall. Likely pathologic from osteoporosis. However she does not complain of right-sided chest pain until today, and did not complain of this in the emergency room. No imaging was obtained until today. Imaging today showed an acute right 6th rib fracture as well as old rib for rib fractures on her left side. She has no evidence of pneumothorax. -continue pain control as noted above, consider increasing if continued pain at rehab. 3. Essential hypertension, chronic and stable, POA Continue home dose of losartan 25 mg po daily 4. Hyperlipidemia, chronic and stable, POA Continue home dose of rosuvastatin 10 mg po at bedtime 5. Hypothyroid, chronic and stable, POA Continue home dose of levothyroxine 112 mcg po daily 6. Multiple sclerosis with urinary incontinence , chronic and stable, POA Hospital Course: Dorothy Jacob is an 84 y.o. female with multiple sclerosis, hypertension, hyperlipidemia, and hypothyroidism who was admitted after a left femur fracture. She is postoperative day 2 from a left hip arthroplasty on 11/13/19. She is recovering well after surgery. She was recommended for discharge to rehab. On postoperative day 2 she also complained of right-sided chest pain, and she did have some mild point tenderness on the right. Right rib series was obtained which showed an acute right 6 rib fracture which was likely sustained as result of her fall. She also showed old left-sided rib fractures. She had no pneumothorax and imaging of was not short of breath. She does have pain when ambulatory but this can be managed with potentially increased pain control. 1. Left femoral neck fracture, acute, present on admission, repaired - now s/p L hip arthoplasty on 11/13/19. Likely pathologic from osteoporosis based on mechanism of injury. - Appreciate orthopedic surgery recommendations. - Posterior hip precautions. She is to wear her abduction pillow while in bed given history of restless legs syndrome. Mirapex started. Continue ASA (81 mg BID) x6 weeks per orthopedics for VTE prophylaxis. - tylenol and oxycodone currently for pain control. 2. Right 6th rib fracture, acute, likely present on admission - Likely pathologic from osteoporosis. Likely sustained as a result of her fall. However she did not complain of right-sided chest pain until HD#2, and did not complain of this in the emergency room. No imaging was obtained until today. Imaging today showed an acute right 6th rib fracture as well as old rib for rib fractures on her left side. She has no evidence of pneumothorax. -continue pain control as noted above, consider increasing if continued pain at rehab. 3. Essential hypertension, chronic and stable, POA Continue home dose of losartan 25 mg po daily 4. Hyperlipidemia, chronic and stable, POA Continue home dose of rosuvastatin 10 mg po at bedtime 5. Hypothyroid, chronic and stable, POA Continue home dose of levothyroxine 112 mcg po daily 6. Multiple sclerosis with urinary incontinence , chronic and stable, POA Continue home dose of oxybuytnin 5 mg po daily continue home cyclosporine ophthalmic drops. patient is followed by Dr. Michael, a neurologist in [place]. VTE Prophylaxis: ASA x6 weeks per orthopedics. Disposition: Discharged to [facility], [facility] for further rehab. Code Status: Full code Time Spent with Patient Time spent: Greater than 30 minutes Exam Vital Signs (past 8 hours): - 11/15/19 12:00 Temperature 98.6 F Pulse Rate 87 Respiratory Rate 18 Blood Pressure 106/57 L Pulse Oximetry 97 Oxygen Delivery Method Room Air Oxygen Flow Rate 0 Narrative Exam Narrative: GENERAL APPEARANCE: Well developed, well nourished, in no acute distress. SKIN: Inspection of the skin reveals no rashes or petechiae. 1 cm superficial wound on medial aspect of left ankle with good granulation tissue HEENT: The sclerae were anicteric and conjunctivae were pink and moist. Extraocular movements were intact and pupils were equal, round with normal accommodation. External inspection of the ears and nose showed no scars, lesions, or masses. Lips, teeth, and gums showed normal mucosa. The oral mucosa, hard and soft palate, tongue and posterior pharynx were unremarkable. NECK: Supple and symmetric. There was no thyroid enlargement, and no tenderness, or masses were felt. CHEST: Normal AP diameter and normal contour without any kyphoscoliosis. LUNGS: Auscultation of the lungs revealed no wheezes, rhonchi, or rales. CARDIOVASCULAR: There was a regular rate and rhythm without any murmurs, gallops, rubs. Peripheral pulses were 2+ and symmetric. ABDOMEN: Soft and nontender with normal bowel sounds. No ascites was noted. MUSCULOSKELETAL: There was no tenderness or effusions noted. L hip dressings c/d/i. Muscle tone was normal. EXTREMITIES: No cyanosis, clubbing or edema. NEUROLOGIC: Alert and oriented x 3. Normal affect. Strength is +5/5 in the Upper Extremities and Lower Extremities Bilaterally. Sensation to touch was normal. Objective Labs Result Diagrams: 11/14/19 04:45 11/14/19 04:45 Discharge Plan Discharge Plan Patient Disposition: SNF Transfer to: [facility], [facility] Discharge comment: You were admitted to the hospital after a fall in which you had a left-sided femur fracture. Your left hip was replaced and you were doing well after surgery. Your pain is well controlled. You're being discharged to a rehab center for additional rehab before going home. As part of evaluation after your fall you were noted to have R sided chest pain which revealed a mildly displaced R sided rib fracture. Treatment is supportive with pain control. This will take time to heal. You should follow up with your primary care provider. Your bhat catheter was removed on 11/15 at approximately 1:30 pm, if you do not void by tonight you may require replacement with another catheter. Discharge orders & Medications Prescriptions: New acetaminophen 325 mg Tablet 650 mg PO Q6HR PRN (Reason: Fever/Mild Pain (1-3)) 30 Days Qty: 60 RF: 0 acetaminophen 325 mg Tablet 650 mg PO TID 14 Days Qty: 84 RF: 0 aspirin 81 mg Tablet,Delayed Release (Dr/Ec) 81 mg PO BID 42 Days Qty: 84 RF: 0 oxycodone 5 mg Tablet 5 mg PO Q3HR PRN (Reason: Pain, Moderate (4-6)) 7 Days Qty: 35 RF: 0 rosuvastatin 10 mg Tablet 10 mg PO BEDTIME 30 Days Qty: 30 RF: 0 Continued Restasis 0.05 % Dropperette 1 drp OPHTHALMIC (EYE) DIRECTED Qty: 0 RF: 0 aspirin 81 mg Tablet,Delayed Release (Dr/Ec) 81 mg PO DAILY Qty: 0 RF: 0 multivitamin [Multiple Vitamins] 1 EACH tablet 1 tab PO QDAY Qty: 0 RF: 0 ascorbic acid (vitamin C) 500 MG tablet 500 mg PO QDAY Qty: 0 RF: 0 calcium carbonate [Tums] 500 MG tablet,chewable 500 mg PO PRN PRN (Reason: Acid Reflux) Qty: 0 RF: 0 cyanocobalamin (vitamin B-12) [Vitamin B-12] 5,000 MCG tablet, sublingual 5,000 mcg Sublingual QDAY Qty: 0 RF: 0 sennosides [senna] 8.6 MG tablet 8.6 mg PO PRN Qty: 0 RF: 0 losartan 25 mg Tablet 25 mg PO DAILY RF: 0 epinastine 0.05 % Drops 1 drp OPHTHALMIC (EYE) BID RF: 0 levothyroxine 112 mcg capsule 112 mcg PO DAILY RF: 0 pramipexole 0.75 mg tablet 0.75 mg PO TID RF: 0 (DME) Respironics Dreamstation CPAP Qty: 1 RF: 0 Follow up/Referrals: Blayne Sims MD [Primary Care Provider] - Discharge Health Status Health Concerns: R 6th rib fracture S/p L hemiarthroplasty. Multiple sclerosis Precautions: [place] Diet/Activity/Treatments Diet: Diet as Tolerated Activity: As tolerated, WBAT LLE. Continue incentive spirometry for rib fracture and may need additional pain control as outpatient. Catheter comment: removed around 1:30 pm on 11/15, if no void by 9pm may need to replace Skin/Wound/Dressing Care Other wound treatment: chronic wound, has follow up appointment with wound clinic scheduled. [facility] Reason for rehabilitation: Post-operative therapy Rehab type: Physical therapy Restrictions to mobility: WBAT LLE. Discharge Data Primary Care Provider: Blayne Sims V Discharges patient from system. Discharge Date/Time: 11/15/19 16:38 Quality VTE Deep Vein Thrombosis/Pulmonary Embolism Present on Admission: No
--- NOTE | 2019-11-15 16:10 | CM.DPC ---
DCP/continued: Spoke several times with Francisco today re: the possibility of patient staying in [place] for rehab. Francisco at [facility] reports that he put in request for SNF authorization this AM and had not heard anything by afternoon time? Therefore, placed call to Macey at [facility] requesting that she re-consider patient and use previous authorization. Macey in agreement. She believes that [facility] no getting authorization because they are out of network? Met with patient and daughter/Donna at bedside. Both aware and agreeable for patient to go to [facility]. Patient aware that attempt was made to keep her in [place]. [facility] faxed and completed. In green folder to be scanned. P: [facility] today via cabulance. RN updated and orders faxed. MARYLOU Gary
== END 2019-11-15 16:38 | DRG 470 ==
LOC: ED 05:07 → AC 05:20
PROVIDERS: Orthopaedic Surgery Adult Reconstructive Orthopaedic Surgery; Admitting Provider Nurse Practitioner Family; Emergency Provider Emergency Medicine; PCP Internal Medicine; Visit Provider Nurse Practitioner Family
PROC: 0SRS0JZ Replacement of Left Hip Joint, Femoral Surface with Synthetic Substitute, Open Approach (ICD-10-PCS; CPT 27125; principal; 2019-11-13 09:00)
DX: M80.052A Age-related osteoporosis with current pathological fracture, left femur, initial encounter for fracture (principal); G35 Multiple sclerosis; N39.498 Other specified urinary incontinence; M80.00XA Age-related osteoporosis with current pathological fracture, unspecified site, initial encounter for fracture; I10 Essential (primary) hypertension; E78.5 Hyperlipidemia, unspecified; E03.9 Hypothyroidism, unspecified; W18.30XA Fall on same level, unspecified, initial encounter; G25.81 Restless legs syndrome
CPT/HCPCS: 36415; 71100; 72170; 73502; 73552; 80048; 82550; 85014; 85018; 85025; 85610; 85730; 86850; 86900; 86901; 94760; 94762; 96374; 97116; 97162; 97165; 97530; 97535; 99284; C1776; J0690; J1100; J1885; J2250; J2270; J2405; J2704; J3010

== ENCOUNTER → 2019-12-17 13:40 | Outpatient (CLI) | payer OTHER, SELFPAY ==
[2019-11-13 05:32] VITALS: BMI 20.2
== END ==
PROVIDERS: PCP Internal Medicine; Referring Provider Internal Medicine; Visit Provider Family Medicine
DX: I87.2 Venous insufficiency (chronic) (peripheral) (principal); L97.822 Non-pressure chronic ulcer of other part of left lower leg with fat layer exposed; S31.819A Unspecified open wound of right buttock, initial encounter; R60.9 Edema, unspecified
CPT/HCPCS: 11042; 97597; 99203

== ENCOUNTER → 2019-12-20 10:57 | Outpatient (CLI) | payer OTHER, MEDICARE, SELFPAY ==
[2019-11-13 05:32] VITALS: BMI 20.2
== END ==
PROVIDERS: PCP Internal Medicine; Visit Provider Family Medicine
DX: I87.2 Venous insufficiency (chronic) (peripheral) (principal); L97.821 Non-pressure chronic ulcer of other part of left lower leg limited to breakdown of skin; S31.819A Unspecified open wound of right buttock, initial encounter; L08.9 Local infection of the skin and subcutaneous tissue, unspecified
CPT/HCPCS: 99213; 99214

== ENCOUNTER → 2019-12-23 14:31 | Outpatient (CLI) | payer OTHER, SELFPAY ==
[2019-11-13 05:32] VITALS: BMI 20.2
== END ==
PROVIDERS: PCP Internal Medicine; Referring Provider Internal Medicine; Visit Provider Family Medicine
DX: I87.2 Venous insufficiency (chronic) (peripheral) (principal); L97.822 Non-pressure chronic ulcer of other part of left lower leg with fat layer exposed; S31.819A Unspecified open wound of right buttock, initial encounter; L08.9 Local infection of the skin and subcutaneous tissue, unspecified; R60.0 Localized edema
CPT/HCPCS: 29581; 87070; 87075; 87077; 87186; 87205; 99214

== ENCOUNTER → 2019-12-25 13:06 | Outpatient (CLI) | payer OTHER, SELFPAY ==
[2019-11-13 05:32] VITALS: BMI 20.2
== END ==
PROVIDERS: PCP Internal Medicine; Referring Provider Internal Medicine; Visit Provider Family Medicine
DX: I87.2 Venous insufficiency (chronic) (peripheral) (principal); L97.821 Non-pressure chronic ulcer of other part of left lower leg limited to breakdown of skin; S31.809A Unspecified open wound of unspecified buttock, initial encounter
CPT/HCPCS: 29581

== ENCOUNTER → 2020-01-01 13:13 | Outpatient (CLI) | payer OTHER, SELFPAY ==
[2019-11-13 05:32] VITALS: BMI 20.2
== END ==
PROVIDERS: PCP Internal Medicine; Referring Provider Internal Medicine; Visit Provider Family Medicine
DX: I87.2 Venous insufficiency (chronic) (peripheral) (principal); L97.822 Non-pressure chronic ulcer of other part of left lower leg with fat layer exposed; L08.9 Local infection of the skin and subcutaneous tissue, unspecified; R60.0 Localized edema
CPT/HCPCS: 11042; 99213

== ENCOUNTER → 2020-01-08 15:37 | Outpatient (CLI) | payer MEDICARE, OTHER, SELFPAY ==
[2019-11-13 05:32] VITALS: BMI 20.2
== END ==
PROVIDERS: PCP Internal Medicine; Referring Provider Internal Medicine; Visit Provider Family Medicine
DX: I87.2 Venous insufficiency (chronic) (peripheral) (principal); L97.825 Non-pressure chronic ulcer of other part of left lower leg with muscle involvement without evidence of necrosis
CPT/HCPCS: 11042; 87070; 87075; 87205

== ENCOUNTER → 2020-01-16 08:47 | Outpatient (CLI) | payer MEDICARE, SELFPAY ==
[2019-11-13 05:32] VITALS: BMI 20.2
== END ==
PROVIDERS: PCP Internal Medicine; Referring Provider Internal Medicine; Visit Provider Family Medicine
DX: I87.2 Venous insufficiency (chronic) (peripheral) (principal); L97.825 Non-pressure chronic ulcer of other part of left lower leg with muscle involvement without evidence of necrosis
CPT/HCPCS: 87070; 87075; 87077; 87147; 87186; 87205; 97597; 99214

== ENCOUNTER → 2020-01-22 11:39 | Outpatient (CLI) | payer OTHER, SELFPAY ==
[2019-11-13 05:32] VITALS: BMI 20.2
== END ==
PROVIDERS: PCP Internal Medicine; Referring Provider Internal Medicine; Visit Provider Family Medicine
DX: I87.2 Venous insufficiency (chronic) (peripheral) (principal); L97.825 Non-pressure chronic ulcer of other part of left lower leg with muscle involvement without evidence of necrosis
CPT/HCPCS: 29581

== ENCOUNTER → 2020-01-29 09:50 | Outpatient (CLI) | payer OTHER, SELFPAY ==
[2019-11-13 05:32] VITALS: BMI 20.2
== END ==
PROVIDERS: PCP Internal Medicine; Referring Provider Internal Medicine; Visit Provider Family Medicine
DX: I87.2 Venous insufficiency (chronic) (peripheral) (principal); L97.821 Non-pressure chronic ulcer of other part of left lower leg limited to breakdown of skin; L08.9 Local infection of the skin and subcutaneous tissue, unspecified; B95.61 Methicillin susceptible Staphylococcus aureus infection as the cause of diseases classified elsewhere
CPT/HCPCS: 11042; 29581; 99214

== ENCOUNTER → 2020-03-09 10:44 | Outpatient (CLI) | payer OTHER, SELFPAY ==
[2019-11-13 05:32] VITALS: BMI 20.2
== END ==
PROVIDERS: PCP Internal Medicine; Referring Provider Internal Medicine; Visit Provider Family Medicine
DX: I87.2 Venous insufficiency (chronic) (peripheral) (principal); L97.821 Non-pressure chronic ulcer of other part of left lower leg limited to breakdown of skin; L08.9 Local infection of the skin and subcutaneous tissue, unspecified
CPT/HCPCS: 87070; 87077; 87147; 87186; 87205; 97597; 99214

== ENCOUNTER → 2020-03-16 10:36 | Outpatient (CLI) | payer OTHER, SELFPAY ==
[2019-11-13 05:32] VITALS: BMI 20.2
== END ==
PROVIDERS: PCP Internal Medicine; Referring Provider Internal Medicine; Visit Provider Family Medicine
DX: I87.2 Venous insufficiency (chronic) (peripheral) (principal); L97.821 Non-pressure chronic ulcer of other part of left lower leg limited to breakdown of skin
CPT/HCPCS: 97597

== ENCOUNTER → 2020-03-23 13:22 | Outpatient (CLI) | payer OTHER, SELFPAY ==
[2019-11-13 05:32] VITALS: BMI 20.2
== END ==
PROVIDERS: PCP Internal Medicine; Referring Provider Internal Medicine; Visit Provider Family Medicine
DX: I87.2 Venous insufficiency (chronic) (peripheral) (principal); L97.821 Non-pressure chronic ulcer of other part of left lower leg limited to breakdown of skin
CPT/HCPCS: 97597

== ENCOUNTER → 2020-03-30 15:18 | Outpatient (CLI) | payer OTHER, SELFPAY ==
[2019-11-13 05:32] VITALS: BMI 20.2
== END ==
PROVIDERS: PCP Internal Medicine; Referring Provider Internal Medicine; Visit Provider Family Medicine
DX: I87.2 Venous insufficiency (chronic) (peripheral) (principal); L97.321 Non-pressure chronic ulcer of left ankle limited to breakdown of skin
CPT/HCPCS: 97597

== ENCOUNTER → 2020-04-07 15:16 | Outpatient (CLI) | payer OTHER, SELFPAY ==
[2019-11-13 05:32] VITALS: BMI 20.2
== END ==
PROVIDERS: PCP Internal Medicine; Referring Provider Internal Medicine; Visit Provider Family Medicine
DX: I87.2 Venous insufficiency (chronic) (peripheral) (principal); L97.821 Non-pressure chronic ulcer of other part of left lower leg limited to breakdown of skin
CPT/HCPCS: 97597

== ENCOUNTER → 2020-04-14 16:16 | Outpatient (CLI) | payer OTHER, SELFPAY ==
[2019-11-13 05:32] VITALS: BMI 20.2
== END ==
PROVIDERS: PCP Internal Medicine; Referring Provider Internal Medicine; Visit Provider Family Medicine
DX: I87.2 Venous insufficiency (chronic) (peripheral) (principal); L97.821 Non-pressure chronic ulcer of other part of left lower leg limited to breakdown of skin
CPT/HCPCS: 29581; 99213

== ENCOUNTER → 2020-04-21 16:38 | Outpatient (CLI) | payer OTHER, SELFPAY ==
[2019-11-13 05:32] VITALS: BMI 20.2
== END ==
PROVIDERS: PCP Internal Medicine; Referring Provider Internal Medicine; Visit Provider Family Medicine
DX: I87.2 Venous insufficiency (chronic) (peripheral) (principal); L97.821 Non-pressure chronic ulcer of other part of left lower leg limited to breakdown of skin; L08.9 Local infection of the skin and subcutaneous tissue, unspecified; R60.0 Localized edema
CPT/HCPCS: 97597; 99214

== ENCOUNTER → 2020-04-28 10:46 | Outpatient (CLI) | payer OTHER, SELFPAY ==
[2019-11-13 05:32] VITALS: BMI 20.2
== END ==
PROVIDERS: PCP Internal Medicine; Referring Provider Internal Medicine; Visit Provider Family Medicine
DX: I87.2 Venous insufficiency (chronic) (peripheral) (principal); L97.821 Non-pressure chronic ulcer of other part of left lower leg limited to breakdown of skin
CPT/HCPCS: 15271; Q4132

== ENCOUNTER → 2020-05-06 13:17 | Outpatient (CLI) | payer OTHER, SELFPAY ==
[2019-11-13 05:32] VITALS: BMI 20.2
[2020-04-28 13:45] VITALS: O2SAT 96
== END ==
PROVIDERS: PCP Internal Medicine; Referring Provider Internal Medicine; Visit Provider Family Medicine
DX: I87.2 Venous insufficiency (chronic) (peripheral) (principal); L97.821 Non-pressure chronic ulcer of other part of left lower leg limited to breakdown of skin
CPT/HCPCS: 97597

== ENCOUNTER → 2020-05-13 13:59 | Outpatient (CLI) | payer OTHER, SELFPAY ==
[2019-11-13 05:32] VITALS: BMI 20.2
[2020-04-28 13:45] VITALS: O2SAT 96
== END ==
PROVIDERS: PCP Internal Medicine; Referring Provider Internal Medicine; Visit Provider Family Medicine
DX: I87.2 Venous insufficiency (chronic) (peripheral) (principal); L97.821 Non-pressure chronic ulcer of other part of left lower leg limited to breakdown of skin
CPT/HCPCS: 29581; 99213

== ENCOUNTER → 2020-05-21 14:16 | Outpatient (CLI) | payer OTHER, SELFPAY ==
[2019-11-13 05:32] VITALS: BMI 20.2
[2020-04-28 13:45] VITALS: O2SAT 96
== END ==
PROVIDERS: PCP Internal Medicine; Referring Provider Internal Medicine; Visit Provider Family Medicine
DX: I87.2 Venous insufficiency (chronic) (peripheral) (principal); L97.821 Non-pressure chronic ulcer of other part of left lower leg limited to breakdown of skin
CPT/HCPCS: 29581; 99213

== ENCOUNTER → 2020-05-27 15:14 | Outpatient (CLI) | payer MEDICARE, SELFPAY ==
[2019-11-13 05:32] VITALS: BMI 20.2
[2020-04-28 13:45] VITALS: O2SAT 96
== END ==
PROVIDERS: PCP Internal Medicine; Referring Provider Internal Medicine; Visit Provider Family Medicine
DX: I87.2 Venous insufficiency (chronic) (peripheral) (principal); L97.821 Non-pressure chronic ulcer of other part of left lower leg limited to breakdown of skin; L08.9 Local infection of the skin and subcutaneous tissue, unspecified
CPT/HCPCS: 87070; 87075; 87077; 87186; 87205; 97597; 99212; 99213

== ENCOUNTER → 2020-05-30 15:36 | Outpatient (CLI) | payer OTHER, SELFPAY ==
[2019-11-13 05:32] VITALS: BMI 20.2
[2020-04-28 13:45] VITALS: O2SAT 96
[2020-05-31 17:58] LABS: COVID19 Sendout Not Detected (Not Detect)
== END ==
PROVIDERS: PCP Internal Medicine; Visit Provider Physician Assistant
DX: Z01.812 Encounter for preprocedural laboratory examination (principal)
CPT/HCPCS: 87635

== ENCOUNTER → 2020-06-02 11:13 | Outpatient (CLI) | payer OTHER, SELFPAY ==
[2019-11-13 05:32] VITALS: BMI 20.2
[2020-04-28 13:45] VITALS: O2SAT 96
--- NOTE | 2020-06-02 | DI.RAD.S_ITS ---
PROCEDURE: XR TIBIA FIBULA RT 2V INDICATIONS: Pain in left lower leg TECHNIQUE: 2 views of the tibia and fibula were acquired. COMPARISON: None. FINDINGS: Bones: No fractures or dislocations. No suspicious bony lesions. Soft tissues: No suspicious soft tissue masses. Atherosclerotic calcifications are noted. IMPRESSION: No fracture. No acute osseous lesion. If symptoms and/or clinical suspicion for pathology persists, further assessment with repeat radiographs (7-10 days) or advanced imaging (e.g. CT, MRI or bone scan) may be helpful. Dictated by: Mahnaz Resenidz MD, PhD on 06/02/2020 at 17:55 Approved by: Mahnaz Resendiz MD, PhD on 06/02/2020 at 17:56
--- NOTE | 2020-06-02 | DI.RAD.S_ITS ---
PROCEDURE: XR KNEE LT 1TO2V INDICATIONS: Pain in left lower leg TECHNIQUE: 2 views of the knee were acquired. COMPARISON: [facility], CR, XR FEMUR LT MIN 2V, 11/13/2019, 4:44. [facility], CR, KNEE 3V LEFT, 08/14/2017, 10:36. FINDINGS: Bones: Postsurgical changes compatible with ORIF of distal femur fracture noted. Fracture is healed and slight deformity. Orthopedic hardware is intact. No lucencies at the bone-hardware interface. Moderate tricompartmental left knee osteoarthritis. Soft tissues: No joint effusion. No suspicious soft tissue calcifications. IMPRESSION: 1. Status post ORIF of left femur fracture. 2. No acute fracture or dislocation. 3. Moderate left knee tricompartmental osteoarthritis. Dictated by: Mahnaz Resendiz MD, PhD on 06/02/2020 at 17:56 Approved by: Mahnaz Resendiz MD, PhD on 06/02/2020 at 17:58
== END ==
PROVIDERS: PCP Internal Medicine; Referring Provider Internal Medicine; Visit Provider Internal Medicine
DX: M79.662 Pain in left lower leg (principal)
CPT/HCPCS: 73562; 73590

== ENCOUNTER → 2020-06-08 11:40 | Outpatient (CLI) | payer OTHER, SELFPAY ==
[2019-11-13 05:32] VITALS: BMI 20.2
[2020-04-28 13:45] VITALS: O2SAT 96
== END ==
PROVIDERS: PCP Internal Medicine; Referring Provider Internal Medicine; Visit Provider Family Medicine
DX: I87.2 Venous insufficiency (chronic) (peripheral) (principal); L97.821 Non-pressure chronic ulcer of other part of left lower leg limited to breakdown of skin; M25.562 Pain in left knee
CPT/HCPCS: 29581; 99213

== ENCOUNTER → 2020-06-11 12:21 | Outpatient (CLI) | payer OTHER, SELFPAY ==
[2019-11-13 05:32] VITALS: BMI 20.2
[2020-04-28 13:45] VITALS: O2SAT 96
--- NOTE | 2020-06-11 | DI.RAD.S_ITS ---
PROCEDURE: XR KNEE LT 1TO2V INDICATIONS: FOLLOW UP XRAYS, PAIN, RECENT ULTRASOUND TECHNIQUE: 3 views of the knee were acquired. COMPARISON: [facility], , XR KNEE LT 1TO2V, 06/02/2020, 11:18. FINDINGS: Bones: Expected postoperative alignment of distal femur plate and screw fixation. The hardware appears intact. Diffuse osteopenia. Moderate osteoarthritis which is unchanged. Soft tissues: No joint effusion. No suspicious soft tissue calcifications. Scattered vascular calcifications. IMPRESSION: Expected postoperative alignment. Moderate osteoarthritis Dictated by: Jayden Chan M.D. on 06/11/2020 at 15:24 Approved by: Jayden Chan M.D. on 06/11/2020 at 15:26
--- NOTE | 2020-06-11 | DI.US.S_ITS ---
PROCEDURE: US PERIPH VENOUS LOW EXTREM LT INDICATIONS: PAIN IN LEFT LOWER LEG TECHNIQUE: Real-time imaging, as well as color and pulse Doppler interrogation, were performed of the lower extremity deep veins from the inguinal ligament to the popliteal fossa. COMPARISON: None. FINDINGS: The common femoral, femoral and popliteal veins are normally compressible, and free of intraluminal thrombus. Color and pulse Doppler demonstrate normal phasic intraluminal flow. There is normal augmentation response to distal compression maneuver. IMPRESSION: No DVT found. Dictated by: Jesus Hurd M.D. on 06/11/2020 at 13:07 Approved by: Jesus Hurd M.D. on 06/11/2020 at 13:08
--- NOTE | 2020-06-11 | DI.RAD.S_ITS ---
PROCEDURE: XR TIBIA FIBULA RT 2V INDICATIONS: FOLLOW UP XRAYS, PAIN, RECENT ULTRASOUND TECHNIQUE: 2 views of the tibia and fibula were acquired. COMPARISON: [facility], , US PERIPH VENOUS LOW EXTREM LT, 06/11/2020, 12:38. [facility], CR, XR TIBIA FIBULA LT 2V, 06/02/2020, 11:18. FINDINGS: Bones: No fractures or dislocations. No suspicious bony lesions. Soft tissues: No suspicious soft tissue calcifications or masses. IMPRESSION: Prior partially visualized distal femoral lateral fixation plate and screws through the intercondylar region. More inferiorly a source of pain is not identified. Dictated by: Jesus Hurd M.D. on 06/11/2020 at 14:08 Approved by: Jesus Hurd M.D. on 06/11/2020 at 14:09
== END ==
PROVIDERS: PCP Internal Medicine; Referring Provider Internal Medicine; Visit Provider Internal Medicine
DX: M79.662 Pain in left lower leg (principal); M17.12 Unilateral primary osteoarthritis, left knee
CPT/HCPCS: 73560; 73590; 93971

== ENCOUNTER → 2020-06-15 15:17 | Outpatient (CLI) | payer OTHER, SELFPAY ==
[2019-11-13 05:32] VITALS: BMI 20.2
[2020-04-28 13:45] VITALS: O2SAT 96
== END ==
PROVIDERS: PCP Internal Medicine; Referring Provider Internal Medicine; Visit Provider Family Medicine
DX: I87.2 Venous insufficiency (chronic) (peripheral) (principal); L97.821 Non-pressure chronic ulcer of other part of left lower leg limited to breakdown of skin
CPT/HCPCS: 29581

== ENCOUNTER 2020-06-16 15:15 | Outpatient (RCR) | payer OTHER, SELFPAY ==
[2019-11-13 05:32] VITALS: BMI 20.2
[2020-04-28 13:45] VITALS: BP 135/74; O2SAT 96
--- NOTE | 2020-04-28 13:45 | PT.OPPOC ---
Physical, Occupational & Speech Therapy At [facility] Current Diagnoses Presence of unspecified artificial hip joint (05/04/20) Visit Care Team Role Provider Type Blayne Sims MD Primary Care Provider Physician Specialty: Internal Medicine Address: [address] [place] [address], [id number] Email: [email or web address] Jo[facility] Urena MD Attending Provider Physician Referring Provider Specialty: Orthopedic Surgery Address: [address] [place] [address], [id number] Email: [email or web address] Plan Of Care PT-OP-T Assessment and Plan Start: 04/30/20 15:48 Freq: Status: Active Protocol: Document 05/04/20 19:00 (Rec: 05/04/20 19:03 [email or web address]) Physical Therapy Assessment Rehab Potential Rehabilitation Potential Good Evaluation Complexity Number of Personal Factors/Comorbidities 3 or More Number of Body Systems Impaired 4 or More Clinical Presentation at Evaluation Evolving Impairments Impairments Activity Tolerance,Balance, Edema,Functional Activities, Functional Mobility,Gait,Pain, Posture,ROM,Soft Tissue Mobility,Strength,Transfers Goals LEFS Impairment pt scores 19/80 on LEFS Short Term Goal (STG) score 25/80 STG Duration 6 weeks Residential Goal (LTG) Pt will score 30 or greater to demonstrates improvements with functional mobility. LTG Duration 12 weeks L hip ROM Impairment Very limited L hip ROM Short Term Goal (STG) Pt will improve L hip AROM for all directions for 5 degrees STG Duration 6 weeks Residential Goal (LTG) Pt will improve L hip AROM for all directions by 10 degrees to improve gait efficiency especially hip extension during preswing. LTG Duration 12 weeks L knee ROM Impairment limited L knee ROM Chair Goal (LTG) 0-120 degrees of L knee to improve gait and functional motion such as sit to stand without using stagger stance. LTG Duration 12 weeks Assessment Summary Assessment This is a high complexity evaluation for this 85yo female who had a L hemiarthroplasty after a fall on . 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 pt also had multiple compression fractures in the thoracolumbar spine, hx of distal femur fx which signigificant affected pt's gait and imbalance. Pt also had an unexplained episode of dizziness/ nausea after getting up from supine position but her vital signs are WFL. Pt had to rest 15 mins in seated position and needed PT aide to escort her back to her car. Will further assess pt's vital sign for next visit and also her fall risk and functional mobility. Pt is a good candidate for skileed therapy to progress her strength, ROM, gait quality and balance to improve safety and overall function. Physical Therapy Plan Frequency and Duration Frequency of Treatment 2x/Week Duration of Treatment 12 weeks Plan of Care Start Date 04/28/20 Plan of Care End Date 08/02/20 Therapeutic Interventions Therapeutic Interventions Balance Training,Gait Training ,Home Exercise Program,Joint Mobilizations,Manual Therapy, Neuromuscular Re-education, Patient/Caregiver Education, Self-Care/Home Management,Soft Tissue Mobilization,Taping, Therapeutic Activities, Therapeutic Exercises Modalities Cold Pack/Ice Massage,Electric Stimulation,Hot Packs, Infrared Therapy,Ultrasound Next Visit Focus/Plan Next Visit Plan assess TUG questions about stair climbing , ask fall risks? hip stretch (for ext, abd , ER ) manual work on adductors, internal rotation, hip flexors hip ROM for HEP. Plan of Care Dates Plan of Care Start Date 04/28/20 Plan of Care End Date 08/02/20 Electronically Signed by: Kingsley Banuelos PT 05/04/20 [id number] Please Sign and Return: I have reviewed this Plan of Care and certify that the skilled therapy services above are required to meet the patient?s needs. Physician Signature Date Printed Name and Credentials Clinical Instructor Signature Printed Name and Credentials
--- NOTE | 2020-04-28 13:45 | PT.OIE ---
Current Diagnoses Presence of unspecified artificial hip joint (05/04/20) Past Medical History (Last Reviewed 11/13/19 @ 06:25 by ADRIANA Brower) Hyperlipidemia (Inactive) Hypertension, essential (Inactive) Hypothyroid (Chronic) Left femoral shaft fracture (Acute) Multiple sclerosis (Inactive) Past Surgical History (Last Reviewed 11/13/19 @ 06:25 by ADRIANA Brower) H/O cataract removal with insertion of prosthetic lens (Acute) H/O esophageal hernia repair (Acute) Visit Care Team Role Provider Type Blayne Sims MD Primary Care Provider Physician Specialty: Internal Medicine Address: [address] [place] [address], [id number] Email: [email or web address] João Urena MD Attending Provider Physician Referring Provider Specialty: Orthopedic Surgery Address: [address] [place] [address], [id number] Email: [email or web address] [facility] Initial Evaluation PT-OP-A Visit Information Start: 04/30/20 15:48 Freq: Status: Active Protocol: Document 05/04/20 19:00 HH (Rec: 04/30/20 16:02 [email or web address]) Out-Patient Physical Therapy Visit Information Visit Information Visit Type Initial Evaluation Visit Start Time 13:45 Visit Stop Time 14:30 Total Visit Minutes 45 Visit Number 12/08 Number of LICSW Visits 0 Evaluation Information Evaluation Date 04/28/20 Precautions Precautions 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 Pt then admitetd to ER and had a L hip hemiarthroplasty in Oct, 2019. Pt also has a h/o L distal femur fracture with ORIF 2016. Her current c/o is very limited ambulation distance and mobility with her FWW, along with her ongoing L knee pain. Pt also has a hx multiple falls and has had services. She lives in a [place] home in a small apartment and stated the area is cramped and small. 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 Has radiograph for spine showed previous compression fx @T10, T12, L3 and L4 L distal femur fracture with ORIF 2016 Future Testing and Treatments Planned Currently attending wound clinic for wound care at L medial ankle Treatment Goals Patient/Caregiver Goals improve mobility, decrease, improve overall function Prior Functional Status Baseline Function- ADL's Modified Independent Baseline Function- Mobility Modified Independent Baseline Function- Gait short distance walk only with FWW Current Functional Impairments (Reported) Functional Limitations- Other short distance only with FWW asssitance needed for cleaning gait on level surface only Personal Factors Other Personal Factors That May Effect Multiple sclerosis, L distal Therapy/Recovery femur fx s/p orIf 07/2017, L hip athroplasty 10/2019, multiple compresison fx, hx of falls. PT-OP-C Subjective Start: 04/30/20 15:48 Freq: Status: Active Protocol: Document 05/04/20 19:00 (Rec: 04/30/20 16:02 [email or web address]) OP-PT Subjective Patient Comments Patient Comments I want to get better and stronger Patient Questionnaires Lower Extremity Functional Scale LEFS Score 19 LEFS Impairment 60 to 79% Impaired (Score 17- 31) OP-PT Pain Assessment Location Left Hip Pain Location Details post hip joint Intensity 6 Scale Used Numeric (0 - 10) Description Aching Frequency Frequent Pain Aggravating Factors Position,Changing Position, Activity,Exercise,Walking Pain Alleviating Factors Inactivity PT-OP-D Balance Start: 04/30/20 15:48 Freq: Status: Active Protocol: Document 05/04/20 19:00 (Rec: 05/04/20 19:03 [email or web address]) Balance Tests Single Limb Standing Single Limb- Right unable Single Limb- Left unable PT-OP-G Mobility & Gait Start: 04/30/20 15:48 Freq: Status: Active Protocol: Document 05/04/20 19:00 (Rec: 05/04/20 19:03 [email or web address]) OP Mobility Evaluation Transfers Sit to Stand pt used stagger stance with LLE extended for STS OP Gait Assessment Gait Gait Assistance Required: Independent Able to Maintain Weight Bearing Status Yes During Gait Assistive Devices Assistive Device Front Wheeled Walker Orthotic/Prosthetic Devices or Brace: No Gait Deviations General Gait Pattern Antalgic,Decreased Stride Length,Decreased Feet Clearance,Flexed Trunk,Lateral Trunk Lean,Narrow Based Gait, Step-to Gait Factors Limiting Gait Function Factors Limiting Gait Function Decreased Activity Tolerance, Decreased Strength,Limited Range of Motion,Pain,Poor Balance,Poor Safety Awareness Comments Gait Comments Pt amb with a L toe in gait and no heel strike. Foot drap also noted. Pt has minimal to none knee flexion during swing phase on LLE. PT-OP-H Neuro Start: 04/30/20 15:48 Freq: Status: Active Protocol: Document 05/04/20 19:00 (Rec: 05/04/20 19:03 [email or web address]) Deep Tendon Reflex & Clonus Assessment Deep Tendon Reflex Right Patellar Deep Tendon Reflex 2+ Normal Bilateral Achilles Deep Tendon Reflex 2+ Normal Left Patellar Deep Tendon Reflex 1+ Diminished Vital Signs Blood Pressure Sitting Blood Pressure (90/60-120/80 mmHg) 135/74 H Blood Pressure Source Manual Cuff,Right Upper Extremity Oxygen Pulse Oximetry at Rest (%) (95-100 %) 96 Oxygen Delivery Method Room Air PT-OP-J Posture/Palpation/Skin Start: 04/30/20 15:48 Freq: Status: Active Protocol: Document 05/04/20 19:00 (Rec: 05/04/20 19:03 [email or web address]) Posture Evaluation Position Standing Evaluation View Anterior Weight Distribution Weight Shifted Right Hip Posture (L) Internally Rotated,(L) Abducted Knee Posture (L) Int. Tibial Torsion PT-OP-K Range of Motion Start: 04/30/20 15:48 Freq: Status: Active Protocol: Document 05/04/20 19:00 (Rec: 05/04/20 19:03 [email or web address]) Hip Goniometric Range of Motion Hip Right Passive Hip ROM WFL Yes Testing Position Supine Extension 8 Abduction 18 Internal Rotation 35 External Rotation 30 Left Passive Hip ROM WFL No Testing Position Supine Extension 0 Abduction 9 Internal Rotation 48 External Rotation 12 Hip ROM Limitations Hip ROM Limitations Soft Tissue Tightness,Muscle Weakness,Pain Knee Goniometric Range of Motion Knee Right Knee ROM WFL Yes Flexion Active (degrees) 125 Extension Active (degrees) 0 Left Knee ROM WFL No Patient Position Supine Flexion Active (degrees) 105 Extension Active (degrees) 9 Knee ROM Limitations Knee ROM Limitations Soft Tissue Tightness,Muscle Weakness,Pain Ankle and Foot Goniometric Range of Motion Ankle and Foot Right Active Ankle/Foot ROM WFL Yes Testing Position Supine Dorsiflexion with Knee Flexed 6 Left Active Ankle/Foot ROM WFL No Testing Position Supine Ankle and Foot ROM Limitations ROM Limitations Soft Tissue Tightness,Muscle Weakness,Pain,Swelling Comments Pt has marisela wrap for wound management on L ankle. Active DF= -5 degrees PT-OP-M Strength Start: 04/30/20 15:48 Freq: Status: Active Protocol: Document 05/04/20 19:00 HH (Rec: 05/04/20 19:03 HH [email or web address]) Hip Strength Hip Manual Muscle Testing Right Flexion (L2) 4 Good Extension (S1) 4 Good Abduction 4 Good Adduction 4 Good Left Flexion (L2) 4- Good- Extension (S1) 3+ Fair+ Abduction 3+ Fair+ Adduction 4- Good- Knee Strength Knee Manual Muscle Testing Right Flexion (S2) 4+ Good+ Extension (L3) 4+ Good+ Left Flexion (S2) 4- Good- Extension (L3) 4- Good- Ankle/Foot Strength Ankle and Foot Manual Muscle Testing Right Dorsiflexion (L4) 4 Good Plantarflexion (S1) 4 Good Inversion 4 Good Eversion (S1) 4 Good Left Dorsiflexion (L4) 3+ Fair+ Plantarflexion (S1) 4- Good- Inversion 4- Good- Eversion (S1) 4- Good- Comments Pt has marisela wrap for wound management on L ankle. PT-OP-Q Treatments Start: 04/30/20 15:48 Freq: Status: Active Protocol: Document 05/04/20 17:54 [facility] (Rec: 05/04/20 18:05 [facility] [email or web address]) Therapeutic Exercises Supine Exercises 2 Supine Exercise Name hip ER with theraband Reps/Minutes 2 x 10 reps 1 Supine Exercise Name ankle eversion Equipment Used level 1 theraband Reps/Minutes 3 x 10 reps psoas and rectus femoris stretching Supine Exercise Name manual stretching off edge of the bed heel slide Supine Exercise Name heel slides Reps/Minutes x 10 Bridging Supine Exercise Name bridges Reps/Minutes x 10 TrAb activation Supine Exercise Name TA isolation in hooklying Reps/Minutes x 5 Gait Training Gait Activity 1 Description gait with cues to keep the left foot from turning in Manual Therapy Treatment Soft Tissue Mobilization adductors Body Location bilateral adductor release and manual stretch L quadriceps Body Location left quadricpes STM Manual Techniques 1 Type manual calf stretch left side PT-OP-T Assessment and Plan Start: 04/30/20 15:48 Freq: Status: Active Protocol: Document 05/04/20 19:00 (Rec: 05/04/20 19:03 [email or web address]) Physical Therapy Assessment Rehab Potential Rehabilitation Potential Good Evaluation Complexity Number of Personal Factors/Comorbidities 3 or More Number of Body Systems Impaired 4 or More Clinical Presentation at Evaluation Evolving Impairments Impairments Activity Tolerance,Balance, Edema,Functional Activities, Functional Mobility,Gait,Pain, Posture,ROM,Soft Tissue Mobility,Strength,Transfers Goals LEFS Impairment pt scores 19/80 on LEFS Short Term Goal (STG) score 25/80 STG Duration 6 weeks Penitentiary Goal (LTG) Pt will score 30 or greater to demonstrates improvements with functional mobility. LTG Duration 12 weeks L hip ROM Impairment Very limited L hip ROM Short Term Goal (STG) Pt will improve L hip AROM for all directions for 5 degrees STG Duration 6 weeks Stevedoring Superintendent Goal (LTG) Pt will improve L hip AROM for all directions by 10 degrees to improve gait efficiency especially hip extension during preswing. LTG Duration 12 weeks L knee ROM Impairment limited L knee ROM Stevedoring Superintendent Goal (LTG) 0-120 degrees of L knee to improve gait and functional motion such as sit to stand without using stagger stance. LTG Duration 12 weeks Assessment Summary Assessment This is a high complexity evaluation for this 85yo female who had a L hemiarthroplasty after a fall on . 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 pt also had multiple compression fractures in the thoracolumbar spine, hx of distal femur fx which signigificant affected pt's gait and imbalance. Pt also had an unexplained episode of dizziness/ nausea after getting up from supine position but her vital signs are WFL. Pt had to rest 15 mins in seated position and needed PT aide to escort her back to her car. Will further assess pt's vital sign for next visit and also her fall risk and functional mobility. Pt is a good candidate for skileed therapy to progress her strength, ROM, gait quality and balance to improve safety and overall function. Physical Therapy Plan Frequency and Duration Frequency of Treatment 2x/Week Duration of Treatment 12 weeks Plan of Care Start Date 04/28/20 Plan of Care End Date 08/02/20 Therapeutic Interventions Therapeutic Interventions Balance Training,Gait Training ,Home Exercise Program,Joint Mobilizations,Manual Therapy, Neuromuscular Re-education, Patient/Caregiver Education, Self-Care/Home Management,Soft Tissue Mobilization,Taping, Therapeutic Activities, Therapeutic Exercises Modalities Cold Pack/Ice Massage,Electric Stimulation,Hot Packs, Infrared Therapy,Ultrasound Next Visit Focus/Plan Next Visit Plan assess TUG questions about stair climbing , ask fall risks? hip stretch (for ext, abd , ER ) manual work on adductors, internal rotation, hip flexors hip ROM for HEP.
--- NOTE | 2020-05-04 18:24 | PT.OTN ---
Current Diagnoses Presence of unspecified artificial hip joint (05/04/20) Physical Therapy Treatment Note PT-OP-A Visit Information Start: 04/30/20 15:48 Freq: Status: Active Protocol: Document 05/04/20 16:38 [facility] (Rec: 05/04/20 16:38 [facility] [email or web address]) Out-Patient Physical Therapy Visit Information Visit Information Visit Type Treatment Note Visit Start Time 13:00 Visit Stop Time 13:45 Total Visit Minutes 45 Visit Number 01/08 PT-OP-B Current Condition Start: 04/30/20 15:48 Freq: Status: Active Protocol: Document 04/28/20 13:45 HH (Rec: 04/30/20 16:02 HH [email or web address]) Current Condition History of Current Condition Onset Date Oct, 2019 Current Complaints Post L hip hemiartroplasty, difficulty in walking, L knee pain History of Current Condition Pt is a 85 yo female with multiple sclerosis, hypertension, hyperlipidemia, and hypothyroidism was in her usual state of health when she was closing the door to her refrigerator when she slipped and fell who broke her L femoral neck. Pt then admitetd to ER and had a L hip hemiarthroplasty in Oct, 2019. Pt also has a h/o L distal femur fracture with ORIF 2016. Her current c/o is very limited ambulation distance and mobility with her FWW, along with her ongoing L knee pain. Pt also has a hx multiple falls and has had HH services. She lives in a senior care home in a small apartment and stated the area is cramped and small. 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 Has radiograph for spine showed previous compression fx @T10, T12, L3 and L4 L distal femur fracture with ORIF 2016 Future Testing and Treatments Planned Currently attending wound clinic for wound care at L medial ankle Treatment Goals Patient/Caregiver Goals improve mobility, decrease, improve overall function Prior Functional Status Baseline Function- ADL's Modified Independent Baseline Function- Mobility Modified Independent Baseline Function- Gait short distance walk only with FWW Current Functional Impairments (Reported) Functional Limitations- Other short distance only with FWW asssitance needed for cleaning gait on level surface only Personal Factors Other Personal Factors That May Effect Multiple sclerosis, L distal Therapy/Recovery femur fx s/p orIf 07/2017, L hip athroplasty 10/2019, multiple compresison fx, hx of falls. PT-OP-C Subjective Start: 04/30/20 15:48 Freq: Status: Active Protocol: Document 05/04/20 16:38 [facility] (Rec: 05/04/20 16:38 [facility] [email or web address]) OP-PT Subjective Patient Comments Patient Comments pt reports she is working on her knee bend with walking. She has felt really shakey the past couple of days PT-OP-Q Treatments Start: 04/30/20 15:48 Freq: Status: Active Protocol: Document 05/04/20 17:54 [facility] (Rec: 05/04/20 18:05 [facility] [email or web address]) Therapeutic Exercises Supine Exercises 2 Supine Exercise Name hip ER with theraband Reps/Minutes 2 x 10 reps 1 Supine Exercise Name ankle eversion Equipment Used level 1 theraband Reps/Minutes 3 x 10 reps psoas and rectus femoris stretching Supine Exercise Name manual stretching off edge of the bed heel slide Supine Exercise Name heel slides Reps/Minutes x 10 Bridging Supine Exercise Name bridges Reps/Minutes x 10 TrAb activation Supine Exercise Name TA isolation in hooklying Reps/Minutes x 5 Gait Training Gait Activity 1 Description gait with cues to keep the left foot from turning in Manual Therapy Treatment Soft Tissue Mobilization adductors Body Location bilateral adductor release and manual stretch L quadriceps Body Location left quadricpes STM Manual Techniques 1 Type manual calf stretch left side PT-OP-T Assessment and Plan Start: 04/30/20 15:48 Freq: Status: Active Protocol: Document 05/04/20 18:05 [facility] (Rec: 05/04/20 18:24 [facility] [email or web address]) Physical Therapy Assessment Assessment Summary Assessment Dorothy is walking with a with toeing in of the left LE and hip IR. She did better with gait today following manual stretching of the ankle, adductor release, and hip ER. I worked on her adductors today and started her with ER exercises for the hip and ankle Physical Therapy Plan Frequency and Duration Frequency of Treatment 2x/Week Duration of Treatment 8 Plan of Care Start Date 04/28/20 Plan of Care End Date 06/23/20 Therapeutic Interventions Therapeutic Interventions Gait Training,Home Exercise Program,Manual Therapy, Neuromuscular Re-education, Patient/Caregiver Education, Self-Care/Home Management,Soft Tissue Mobilization, Therapeutic Exercises Next Visit Focus/Plan Next Note Type Treatment Note Next Visit Plan Continue to progress stretngthening for the hip ER, hip flexibility and ROM, gait training, strengthening
--- NOTE | 2020-05-06 16:43 | PT.OTN ---
Current Diagnoses Presence of unspecified artificial hip joint (05/06/20) Physical Therapy Treatment Note PT-OP-A Visit Information Start: 04/30/20 15:48 Freq: Status: Active Protocol: Document 05/06/20 14:31 HH (Rec: 05/06/20 16:43 HH [id number]) Out-Patient Physical Therapy Visit Information Visit Information Visit Type Treatment Note Visit Start Time 14:35 Visit Stop Time 15:15 Total Visit Minutes 40 Visit Number 02/05 PT-OP-B Current Condition Start: 04/30/20 15:48 Freq: Status: Active Protocol: Document 04/28/20 13:45 HH (Rec: 04/30/20 16:02 HH [email or web address]) Current Condition History of Current Condition Onset Date Oct, 2019 Current Complaints Post L hip hemiartroplasty, difficulty in walking, L knee pain History of Current Condition Pt is a 85 yo female with multiple sclerosis, hypertension, hyperlipidemia, and hypothyroidism was in her usual state of health when she was closing the door to her refrigerator when she slipped and fell who broke her L femoral neck. Pt then admitetd to ER and had a L hip hemiarthroplasty in Oct, 2019. Pt also has a h/o L distal femur fracture with ORIF 2016. Her current c/o is very limited ambulation distance and mobility with her FWW, along with her ongoing L knee pain. Pt also has a hx multiple falls and has had HH services. [place] [facility] in a [place] apartment and stated the area is cramped and small. 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 Has radiograph for spine showed previous compression fx @T10, T12, L3 and L4 L distal femur fracture with ORIF 2016 Future Testing and Treatments Planned Currently attending wound clinic for wound care at L medial ankle Treatment Goals Patient/Caregiver Goals improve mobility, decrease, improve overall function Prior Functional Status Baseline Function- ADL's Modified Independent Baseline Function- Mobility Modified Independent Baseline Function- Gait short distance walk only with FWW Current Functional Impairments (Reported) Functional Limitations- Other short distance only with FWW asssitance needed for cleaning gait on level surface only Personal Factors Other Personal Factors That May Effect Multiple sclerosis, L distal Therapy/Recovery femur fx s/p orIf 07/2017, L hip athroplasty 10/2019, multiple compresison fx, hx of falls. PT-OP-C Subjective Start: 04/30/20 15:48 Freq: Status: Active Protocol: Document 05/06/20 14:31 HH (Rec: 05/06/20 16:43 HH [id number]) OP-PT Subjective Patient Comments Patient Comments Geetha been doing my ex and trying to walk with my toe straight. Geetha been feeling better too. Patient Reported Progress Improving PT-OP-D Balance Start: 04/30/20 15:48 Freq: Status: Active Protocol: Document 04/28/20 13:45 HH (Rec: 05/04/20 19:03 HH [email or web address]) Balance Tests Single Limb Standing Single Limb- Right unable Single Limb- Left unable PT-OP-G Mobility & Gait Start: 04/30/20 15:48 Freq: Status: Active Protocol: Document 04/28/20 13:45 HH (Rec: 05/04/20 19:03 HH [email or web address]) OP Mobility Evaluation Transfers Sit to Stand pt used stagger stance with LLE extended for STS OP Gait Assessment Gait Gait Assistance Required: Independent Able to Maintain Weight Bearing Status Yes During Gait Assistive Devices Assistive Device Front Wheeled Walker Orthotic/Prosthetic Devices or Brace: No Gait Deviations General Gait Pattern Antalgic,Decreased Stride Length,Decreased Feet Clearance,Flexed Trunk,Lateral Trunk Lean,Narrow Based Gait, Step-to Gait Factors Limiting Gait Function Factors Limiting Gait Function Decreased Activity Tolerance, Decreased Strength,Limited Range of Motion,Pain,Poor Balance,Poor Safety Awareness Comments Gait Comments Pt amb with a L toe in gait and no heel strike. Foot drap also noted. Pt has minimal to none knee flexion during swing phase on LLE. PT-OP-H Neuro Start: 04/30/20 15:48 Freq: Status: Active Protocol: Document 04/28/20 13:45 HH (Rec: 05/04/20 19:03 HH [email or web address]) Deep Tendon Reflex & Clonus Assessment Deep Tendon Reflex Right Patellar Deep Tendon Reflex 2+ Normal Bilateral Achilles Deep Tendon Reflex 2+ Normal Left Patellar Deep Tendon Reflex 1+ Diminished Vital Signs Blood Pressure Sitting Blood Pressure (90/60-120/80 mmHg) 135/74 H Blood Pressure Source Manual Cuff,Right Upper Extremity Oxygen Pulse Oximetry at Rest (%) (95-100 %) 96 Oxygen Delivery Method Room Air PT-OP-J Posture/Palpation/Skin Start: 04/30/20 15:48 Freq: Status: Active Protocol: Document 04/28/20 13:45 HH (Rec: 05/04/20 19:03 [email or web address]) Posture Evaluation Position Standing Evaluation View Anterior Weight Distribution Weight Shifted Right Hip Posture (L) Internally Rotated,(L) Abducted Knee Posture (L) Int. Tibial Torsion PT-OP-K Range of Motion Start: 04/30/20 15:48 Freq: Status: Active Protocol: Document 04/28/20 13:45 HH (Rec: 05/04/20 19:03 [email or web address]) Hip Goniometric Range of Motion Hip Right Passive Hip ROM WFL Yes Testing Position Supine Extension 8 Abduction 18 Internal Rotation 35 External Rotation 30 Left Passive Hip ROM WFL No Testing Position Supine Extension 0 Abduction 9 Internal Rotation 48 External Rotation 12 Hip ROM Limitations Hip ROM Limitations Soft Tissue Tightness,Muscle Weakness,Pain Knee Goniometric Range of Motion Knee Right Knee ROM WFL Yes Flexion Active (degrees) 125 Extension Active (degrees) 0 Left Knee ROM WFL No Patient Position Supine Flexion Active (degrees) 105 Extension Active (degrees) 9 Knee ROM Limitations Knee ROM Limitations Soft Tissue Tightness,Muscle Weakness,Pain Ankle and Foot Goniometric Range of Motion Ankle and Foot Right Active Ankle/Foot ROM WFL Yes Testing Position Supine Dorsiflexion with Knee Flexed 6 Left Active Ankle/Foot ROM WFL No Testing Position Supine Ankle and Foot ROM Limitations ROM Limitations Soft Tissue Tightness,Muscle Weakness,Pain,Swelling Comments Pt has marisela wrap for wound management on L ankle. Active DF= -5 degrees PT-OP-M Strength Start: 04/30/20 15:48 Freq: Status: Active Protocol: Document 04/28/20 13:45 HH (Rec: 05/04/20 19:03 [email or web address]) Hip Strength Hip Manual Muscle Testing Right Flexion (L2) 4 Good Extension (S1) 4 Good Abduction 4 Good Adduction 4 Good Left Flexion (L2) 4- Good- Extension (S1) 3+ Fair+ Abduction 3+ Fair+ Adduction 4- Good- Knee Strength Knee Manual Muscle Testing Right Flexion (S2) 4+ Good+ Extension (L3) 4+ Good+ Left Flexion (S2) 4- Good- Extension (L3) 4- Good- Ankle/Foot Strength Ankle and Foot Manual Muscle Testing Right Dorsiflexion (L4) 4 Good Plantarflexion (S1) 4 Good Inversion 4 Good Eversion (S1) 4 Good Left Dorsiflexion (L4) 3+ Fair+ Plantarflexion (S1) 4- Good- Inversion 4- Good- Eversion (S1) 4- Good- Comments Pt has marisela wrap for wound management on L ankle. PT-OP-Q Treatments Start: 04/30/20 15:48 Freq: Status: Active Protocol: Document 05/06/20 14:31 (Rec: 05/06/20 16:43 [id number]) Therapeutic Exercises Supine Exercises supine DF Supine Exercise Name passive stretch for DF Side left Reps/Minutes 20 secs x 5 supine hip abduction. Supine Exercise Name slow eccentric control Side bilateral Reps/Minutes 8 x2 Comments followed by rolling pin massage Bridging Supine Exercise Name bridges for HEP Reps/Minutes 8 x2 Sitting Exercises rolling pin Sitting Exercise Name for hip Adductors Side bilateral Standing Exercises calf stretch Standing Exercise Name linnette wedge for calf stretch Side bilateral Equipment Used linnette wedge Reps/Minutes 10secs x 4 Comments for HEP Manual Therapy Treatment Soft Tissue Mobilization adductors Body Location bilateral adductor release and manual stretch Mobilization Type Rolling,Sustained Pressure, Trigger Point Release Intensity/Depth Superficial Body Position Supine Comments Significant hip adductors L quadriceps Body Location left quadricpes STM Mobilization Type Rolling,Sustained Pressure, Trigger Point Release Intensity/Depth Superficial Body Position Supine Comments pain noted at medial quadriceps scar tissue Mobilization Type Sustained Pressure,Trigger Point Release Intensity/Depth Superficial Body Position Supine PT-OP-T Assessment and Plan Start: 04/30/20 15:48 Freq: Status: Active Protocol: Document 05/06/20 14:31 (Rec: 05/06/20 16:43 [id number]) Physical Therapy Assessment Goals LEFS Impairment pt scores 19/80 on LEFS Short Term Goal (STG) score 25/80 STG Duration 6 weeks Manager Clinical Services Goal (LTG) Pt will score 30 or greater to demonstrates improvements with functional mobility. LTG Duration 12 weeks L hip ROM Impairment Very limited L hip ROM Short Term Goal (STG) Pt will improve L hip AROM for all directions for 5 degrees STG Duration 6 weeks Manager Clinical Services Goal (LTG) Pt will improve L hip AROM for all directions by 10 degrees to improve gait efficiency especially hip extension during preswing. LTG Duration 12 weeks L knee ROM Impairment limited L knee ROM Manager Clinical Services Goal (LTG) 0-120 degrees of L knee to improve gait and functional motion such as sit to stand without using stagger stance. LTG Duration 12 weeks Assessment Summary Assessment Dorothy shows signicant improvements with gait mechanics today. She initially c/o hip pain with supine hip abd but it went away after soft tissue release B hip adductors. She was able to show improved knee flexion during swing phase. Physical Therapy Plan Next Visit Focus/Plan Next Note Type Treatment Note Next Visit Plan Continue to progress stretngthening for the hip ER, hip flexibility and ROM, gait training, strengthening add bike if ok
--- NOTE | 2020-05-12 17:46 | PT.OTN ---
Current Diagnoses Presence of unspecified artificial hip joint (05/12/20) Physical Therapy Treatment Note PT-OP-A Visit Information Start: 04/30/20 15:48 Freq: Status: Active Protocol: Document 05/12/20 16:48 HH (Rec: 05/12/20 17:46 HH [id number]) Out-Patient Physical Therapy Visit Information Visit Information Visit Type Treatment Note Visit Start Time 16:45 Visit Stop Time 17:31 Total Visit Minutes 46 Visit Number 03/08 PT-OP-B Current Condition Start: 04/30/20 15:48 Freq: Status: Active Protocol: Document 04/28/20 13:45 HH (Rec: 04/30/20 16:02 HH [email or web address]) Current Condition History of Current Condition Onset Date Oct, 2019 Current Complaints Post L hip hemiartroplasty, difficulty in walking, L knee pain History of Current Condition Pt is a 85 yo female with multiple sclerosis, hypertension, hyperlipidemia, and hypothyroidism was in her usual state of health when she was closing the door to her refrigerator when she slipped and fell who broke her L femoral neck. Pt then admitetd to ER and had a L hip hemiarthroplasty in Oct, 2019. Pt also has a h/o L distal femur fracture with ORIF 2016. Her current c/o is very limited ambulation distance and mobility with her FWW, along with her ongoing L knee pain. Pt also has a hx multiple falls and has had HH services. She lives in a [facility] in a small apartment and stated the area is cramped and small. 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 Has radiograph for spine showed previous compression fx @T10, T12, L3 and L4 L distal femur fracture with ORIF 2016 Future Testing and Treatments Planned Currently attending wound clinic for wound care at [facility] Treatment Goals Patient/Caregiver Goals improve mobility, decrease, improve overall function Prior Functional Status Baseline Function- ADL's Modified Independent Baseline Function- Mobility Modified Independent Baseline Function- Gait short distance walk only with FWW Current Functional Impairments (Reported) Functional Limitations- Other short distance only with FWW asssitance needed for cleaning gait on level surface only Personal Factors Other Personal Factors That May Effect Multiple sclerosis, L distal Therapy/Recovery femur fx s/p orIf 07/2017, L hip athroplasty 10/2019, multiple compresison fx, hx of falls. PT-OP-C Subjective Start: 04/30/20 15:48 Freq: Status: Active Protocol: Document 05/12/20 16:48 HH (Rec: 05/12/20 17:46 HH [id number]) OP-PT Subjective Patient Comments Patient Comments Geetha been practicing standing up with even foot placements. I am walking better too but i feel my hips tight today Patient Reported Progress Improving PT-OP-D Balance Start: 04/30/20 15:48 Freq: Status: Active Protocol: Document 04/28/20 13:45 HH (Rec: 05/04/20 19:03 HH [email or web address]) Balance Tests Single Limb Standing Single Limb- Right unable Single Limb- Left unable PT-OP-G Mobility & Gait Start: 04/30/20 15:48 Freq: Status: Active Protocol: Document 04/28/20 13:45 HH (Rec: 05/04/20 19:03 HH [email or web address]) OP Mobility Evaluation Transfers Sit to Stand pt used stagger stance with LLE extended for STS OP Gait Assessment Gait Gait Assistance Required: Independent Able to Maintain Weight Bearing Status Yes During Gait Assistive Devices Assistive Device Front Wheeled Walker Orthotic/Prosthetic Devices or Brace: No Gait Deviations General Gait Pattern Antalgic,Decreased Stride Length,Decreased Feet Clearance,Flexed Trunk,Lateral Trunk Lean,Narrow Based Gait, Step-to Gait Factors Limiting Gait Function Factors Limiting Gait Function Decreased Activity Tolerance, Decreased Strength,Limited Range of Motion,Pain,Poor Balance,Poor Safety Awareness Comments Gait Comments Pt amb with a L toe in gait and no heel strike. Foot drap also noted. Pt has minimal to none knee flexion during swing phase on LLE. PT-OP-H Neuro Start: 04/30/20 15:48 Freq: Status: Active Protocol: Document 04/28/20 13:45 HH (Rec: 05/04/20 19:03 HH [email or web address]) Deep Tendon Reflex & Clonus Assessment Deep Tendon Reflex Right Patellar Deep Tendon Reflex 2+ Normal Bilateral Achilles Deep Tendon Reflex 2+ Normal Left Patellar Deep Tendon Reflex 1+ Diminished Vital Signs Blood Pressure Sitting Blood Pressure (90/60-120/80 mmHg) 135/74 H Blood Pressure Source Manual Cuff,Right Upper Extremity Oxygen Pulse Oximetry at Rest (%) (95-100 %) 96 Oxygen Delivery Method Room Air PT-OP-J Posture/Palpation/Skin Start: 04/30/20 15:48 Freq: Status: Active Protocol: Document 04/28/20 13:45 HH (Rec: 05/04/20 19:03 [email or web address]) Posture Evaluation Position Standing Evaluation View Anterior Weight Distribution Weight Shifted Right Hip Posture (L) Internally Rotated,(L) Abducted Knee Posture (L) Int. Tibial Torsion PT-OP-K Range of Motion Start: 04/30/20 15:48 Freq: Status: Active Protocol: Document 04/28/20 13:45 HH (Rec: 05/04/20 19:03 [email or web address]) Hip Goniometric Range of Motion Hip Right Passive Hip ROM WFL Yes Testing Position Supine Extension 8 Abduction 18 Internal Rotation 35 External Rotation 30 Left Passive Hip ROM WFL No Testing Position Supine Extension 0 Abduction 9 Internal Rotation 48 External Rotation 12 Hip ROM Limitations Hip ROM Limitations Soft Tissue Tightness,Muscle Weakness,Pain Knee Goniometric Range of Motion Knee Right Knee ROM WFL Yes Flexion Active (degrees) 125 Extension Active (degrees) 0 Left Knee ROM WFL No Patient Position Supine Flexion Active (degrees) 105 Extension Active (degrees) 9 Knee ROM Limitations Knee ROM Limitations Soft Tissue Tightness,Muscle Weakness,Pain Ankle and Foot Goniometric Range of Motion Ankle and Foot Right Active Ankle/Foot ROM WFL Yes Testing Position Supine Dorsiflexion with Knee Flexed 6 Left Active Ankle/Foot ROM WFL No Testing Position Supine Ankle and Foot ROM Limitations ROM Limitations Soft Tissue Tightness,Muscle Weakness,Pain,Swelling Comments Pt has marisela wrap for wound management on L ankle. Active DF= -5 degrees PT-OP-M Strength Start: 04/30/20 15:48 Freq: Status: Active Protocol: Document 04/28/20 13:45 HH (Rec: 05/04/20 19:03 [email or web address]) Hip Strength Hip Manual Muscle Testing Right Flexion (L2) 4 Good Extension (S1) 4 Good Abduction 4 Good Adduction 4 Good Left Flexion (L2) 4- Good- Extension (S1) 3+ Fair+ Abduction 3+ Fair+ Adduction 4- Good- Knee Strength Knee Manual Muscle Testing Right Flexion (S2) 4+ Good+ Extension (L3) 4+ Good+ Left Flexion (S2) 4- Good- Extension (L3) 4- Good- Ankle/Foot Strength Ankle and Foot Manual Muscle Testing Right Dorsiflexion (L4) 4 Good Plantarflexion (S1) 4 Good Inversion 4 Good Eversion (S1) 4 Good Left Dorsiflexion (L4) 3+ Fair+ Plantarflexion (S1) 4- Good- Inversion 4- Good- Eversion (S1) 4- Good- Comments Pt has marisela wrap for wound management on L ankle. PT-OP-Q Treatments Start: 04/30/20 15:48 Freq: Status: Active Protocol: Document 05/12/20 16:48 HH (Rec: 05/12/20 17:46 [id number]) Therapeutic Exercises Supine Exercises supine hip abduction. Supine Exercise Name unilateral hip ER Side bilateral Reps/Minutes 8 x2 Comments followed by rolling pin massage Standing Exercises ankle board Standing Exercise Name for ankle DF and PF Side bilateral Equipment Used within //bar Reps/Minutes 4 mins Comments with support, knee extended calf stretch Standing Exercise Name linnette wedge for calf stretch Side bilateral Equipment Used linnette wedge Reps/Minutes 10secs x 4 Comments for HEP sit<->stand squats Standing Exercise Name from high chair and cues for hip ER Side bilateral Equipment Used with yellow band at knees Reps/Minutes 4 times x 2 Comments knees at 90 degrees Gait Training Gait Activity gait in // bars Description weight acceptance for LLE Device Used gait belt Level of Assistance CGA Surface ground level Distance/Duration in place Treatment Focus stance phase Comments focus on vijay strike and heel raise during stance phase Manual Therapy Treatment Soft Tissue Mobilization adductors Body Location bilateral adductor release and manual stretch Mobilization Type Rolling,Sustained Pressure, Trigger Point Release Intensity/Depth Superficial Body Position Supine Comments Significant hip adductors L quadriceps Body Location left quadricpes STM Mobilization Type Rolling,Sustained Pressure, Trigger Point Release Intensity/Depth Superficial Body Position Supine Comments pain noted at medial quadriceps scar tissue Mobilization Type Sustained Pressure,Trigger Point Release Intensity/Depth Superficial Body Position Supine PT-OP-T Assessment and Plan Start: 04/30/20 15:48 Freq: Status: Active Protocol: Document 05/12/20 16:48 HH (Rec: 05/12/20 17:46 [email or web address]) Physical Therapy Assessment Goals LEFS Impairment pt scores 19/80 on LEFS Short Term Goal (STG) score 25/80 STG Duration 6 weeks Quality Assistant Goal (LTG) Pt will score 30 or greater to demonstrates improvements with functional mobility. LTG Duration 12 weeks L hip ROM Impairment Very limited L hip ROM Short Term Goal (STG) Pt will improve L hip AROM for all directions for 5 degrees STG Duration 6 weeks Quality Assistant Goal (LTG) Pt will improve L hip AROM for all directions by 10 degrees to improve gait efficiency especially hip extension during preswing. LTG Duration 12 weeks L knee ROM Impairment limited L knee ROM Quality Assistant Goal (LTG) 0-120 degrees of L knee to improve gait and functional motion such as sit to stand without using stagger stance. LTG Duration 12 weeks Assessment Summary Assessment Pt's edema at L knee reduced after manual therapy today. Tx also focused on hip ER during STS, without staggered stance . Added gait training at the end to focus on weight acceptance and heel raise during stance phase. Pt colton tx very well. Physical Therapy Plan Next Visit Focus/Plan Next Note Type Treatment Note Next Visit Plan gait trianing work on hip extenison Continue to progress stretngthening for the hip ER, hip flexibility and ROM, gait training, strengthening add bike if ok
--- NOTE | 2020-05-14 16:25 | PT.OTN ---
Current Diagnoses Presence of unspecified artificial hip joint (05/14/20) Physical Therapy Treatment Note PT-OP-A Visit Information Start: 04/30/20 15:48 Freq: Status: Active Protocol: Document 05/14/20 13:50 HH (Rec: 05/14/20 16:24 HH [id number]) Out-Patient Physical Therapy Visit Information Visit Information Visit Type Treatment Note Visit Start Time 13:47 Visit Stop Time 14:30 Total Visit Minutes 43 Visit Number 04/07 PT-OP-B Current Condition Start: 04/30/20 15:48 Freq: Status: Active Protocol: Document 04/28/20 13:45 HH (Rec: 04/30/20 16:02 HH [email or web address]) Current Condition History of Current Condition Onset Date Oct, 2019 Current Complaints Post L hip hemiartroplasty, difficulty in walking, L knee pain History of Current Condition Pt is a 85 yo female with multiple sclerosis, hypertension, hyperlipidemia, and hypothyroidism was in her usual state of health when she was closing the door to her refrigerator when she slipped and fell who broke her L femoral neck. Pt then admitetd to ER and had a L hip hemiarthroplasty in Oct, 2019. Pt also has a h/o L distal femur fracture with ORIF 2016. Her current c/o is very limited ambulation distance and mobility with her FWW, along with her ongoing L knee pain. Pt also has a hx multiple falls and has had HH services. She lives in a half-way home in a small apartment and stated the area is cramped and small. 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 Has radiograph for spine showed previous compression fx @T10, T12, L3 and L4 L distal femur fracture with ORIF 2016 Future Testing and Treatments Planned Currently attending wound clinic for wound care at L medial ankle Treatment Goals Patient/Caregiver Goals improve mobility, decrease, improve overall function Prior Functional Status Baseline Function- ADL's Modified Independent Baseline Function- Mobility Modified Independent Baseline Function- Gait short distance walk only with FWW Current Functional Impairments (Reported) Functional Limitations- Other short distance only with FWW asssitance needed for cleaning gait on level surface only Personal Factors Other Personal Factors That May Effect Multiple sclerosis, L distal Therapy/Recovery femur fx s/p orIf 07/2017, L hip athroplasty 10/2019, multiple compresison fx, hx of falls. PT-OP-C Subjective Start: 04/30/20 15:48 Freq: Status: Active Protocol: Document 05/14/20 13:50 HH (Rec: 05/14/20 16:24 HH [id number]) OP-PT Subjective Patient Comments Patient Comments Geetha been feeling weak today and i dont know why. I was doing really good on monday. Patient Reported Progress Same PT-OP-D Balance Start: 04/30/20 15:48 Freq: Status: Active Protocol: Document 04/28/20 13:45 HH (Rec: 05/04/20 19:03 HH [email or web address]) Balance Tests Single Limb Standing Single Limb- Right unable Single Limb- Left unable PT-OP-G Mobility & Gait Start: 04/30/20 15:48 Freq: Status: Active Protocol: Document 04/28/20 13:45 HH (Rec: 05/04/20 19:03 HH [email or web address]) OP Mobility Evaluation Transfers Sit to Stand pt used stagger stance with LLE extended for STS OP Gait Assessment Gait Gait Assistance Required: Independent Able to Maintain Weight Bearing Status Yes During Gait Assistive Devices Assistive Device Front Wheeled Walker Orthotic/Prosthetic Devices or Brace: No Gait Deviations General Gait Pattern Antalgic,Decreased Stride Length,Decreased Feet Clearance,Flexed Trunk,Lateral Trunk Lean,Narrow Based Gait, Step-to Gait Factors Limiting Gait Function Factors Limiting Gait Function Decreased Activity Tolerance, Decreased Strength,Limited Range of Motion,Pain,Poor Balance,Poor Safety Awareness Comments Gait Comments Pt amb with a L toe in gait and no heel strike. Foot drap also noted. Pt has minimal to none knee flexion during swing phase on LLE. PT-OP-H Neuro Start: 04/30/20 15:48 Freq: Status: Active Protocol: Document 04/28/20 13:45 HH (Rec: 05/04/20 19:03 HH [email or web address]) Deep Tendon Reflex & Clonus Assessment Deep Tendon Reflex Right Patellar Deep Tendon Reflex 2+ Normal Bilateral Achilles Deep Tendon Reflex 2+ Normal Left Patellar Deep Tendon Reflex 1+ Diminished Vital Signs Blood Pressure Sitting Blood Pressure (90/60-120/80 mmHg) 135/74 H Blood Pressure Source Manual Cuff,Right Upper Extremity Oxygen Pulse Oximetry at Rest (%) (95-100 %) 96 Oxygen Delivery Method Room Air PT-OP-J Posture/Palpation/Skin Start: 04/30/20 15:48 Freq: Status: Active Protocol: Document 04/28/20 13:45 HH (Rec: 05/04/20 19:03 [email or web address]) Posture Evaluation Position Standing Evaluation View Anterior Weight Distribution Weight Shifted Right Hip Posture (L) Internally Rotated,(L) Abducted Knee Posture (L) Int. Tibial Torsion PT-OP-K Range of Motion Start: 04/30/20 15:48 Freq: Status: Active Protocol: Document 04/28/20 13:45 HH (Rec: 05/04/20 19:03 [email or web address]) Hip Goniometric Range of Motion Hip Right Passive Hip ROM WFL Yes Testing Position Supine Extension 8 Abduction 18 Internal Rotation 35 External Rotation 30 Left Passive Hip ROM WFL No Testing Position Supine Extension 0 Abduction 9 Internal Rotation 48 External Rotation 12 Hip ROM Limitations Hip ROM Limitations Soft Tissue Tightness,Muscle Weakness,Pain Knee Goniometric Range of Motion Knee Right Knee ROM WFL Yes Flexion Active (degrees) 125 Extension Active (degrees) 0 Left Knee ROM WFL No Patient Position Supine Flexion Active (degrees) 105 Extension Active (degrees) 9 Knee ROM Limitations Knee ROM Limitations Soft Tissue Tightness,Muscle Weakness,Pain Ankle and Foot Goniometric Range of Motion Ankle and Foot Right Active Ankle/Foot ROM WFL Yes Testing Position Supine Dorsiflexion with Knee Flexed 6 Left Active Ankle/Foot ROM WFL No Testing Position Supine Ankle and Foot ROM Limitations ROM Limitations Soft Tissue Tightness,Muscle Weakness,Pain,Swelling Comments Pt has marisela wrap for wound management on L ankle. Active DF= -5 degrees PT-OP-M Strength Start: 04/30/20 15:48 Freq: Status: Active Protocol: Document 04/28/20 13:45 HH (Rec: 05/04/20 19:03 [email or web address]) Hip Strength Hip Manual Muscle Testing Right Flexion (L2) 4 Good Extension (S1) 4 Good Abduction 4 Good Adduction 4 Good Left Flexion (L2) 4- Good- Extension (S1) 3+ Fair+ Abduction 3+ Fair+ Adduction 4- Good- Knee Strength Knee Manual Muscle Testing Right Flexion (S2) 4+ Good+ Extension (L3) 4+ Good+ Left Flexion (S2) 4- Good- Extension (L3) 4- Good- Ankle/Foot Strength Ankle and Foot Manual Muscle Testing Right Dorsiflexion (L4) 4 Good Plantarflexion (S1) 4 Good Inversion 4 Good Eversion (S1) 4 Good Left Dorsiflexion (L4) 3+ Fair+ Plantarflexion (S1) 4- Good- Inversion 4- Good- Eversion (S1) 4- Good- Comments Pt has marisela wrap for wound management on L ankle. PT-OP-Q Treatments Start: 04/30/20 15:48 Freq: Status: Active Protocol: Document 05/14/20 13:50 HH (Rec: 05/14/20 16:24 HH [id number]) Cardio Equipment Recumbent Stepper (Sci-Fit) Duration (Minutes) 10 Other 5 mins x 2, cues on forefoot push off to facilitate DF Therapeutic Exercises Supine Exercises supine DF Supine Exercise Name passive stretch for DF Side left Reps/Minutes 20 secs x 5 supine hip abduction. Supine Exercise Name slow eccentric control Side bilateral Reps/Minutes 8 x2 Comments followed by rolling pin massage Sitting Exercises rolling pin Sitting Exercise Name for hip Adductors Side bilateral Standing Exercises calf stretch Standing Exercise Name linnette wedge for calf stretch Side bilateral Equipment Used linnette wedge Reps/Minutes 10secs x 4 Comments for HEP Gait Training Gait Activity gait in // bars Description weight acceptance for LLE Device Used gait belt Level of Assistance CGA Surface ground level Distance/Duration in place Treatment Focus stance phase Comments focus on vijay strike and heel raise during stance phase Manual Therapy Treatment Soft Tissue Mobilization adductors Body Location bilateral adductor release and manual stretch Mobilization Type Rolling,Sustained Pressure, Trigger Point Release Intensity/Depth Superficial Body Position Supine Comments Significant hip adductors L quadriceps Body Location left quadricpes STM Mobilization Type Rolling,Sustained Pressure, Trigger Point Release Intensity/Depth Superficial Body Position Supine Comments pain noted at medial quadriceps scar tissue Mobilization Type Sustained Pressure,Trigger Point Release Intensity/Depth Superficial Body Position Supine PT-OP-T Assessment and Plan Start: 04/30/20 15:48 Freq: Status: Active Protocol: Document 05/14/20 13:50 HH (Rec: 05/14/20 16:24 HH [id number]) Physical Therapy Assessment Goals LEFS Impairment pt scores 19/80 on LEFS Short Term Goal (STG) score 25/80 STG Duration 6 weeks Prison Goal (LTG) Pt will score 30 or greater to demonstrates improvements with functional mobility. LTG Duration 12 weeks L hip ROM Impairment Very limited L hip ROM Short Term Goal (STG) Pt will improve L hip AROM for all directions for 5 degrees STG Duration 6 weeks Quality Assurance Monitor Final Goal (LTG) Pt will improve L hip AROM for all directions by 10 degrees to improve gait efficiency especially hip extension during preswing. LTG Duration 12 weeks L knee ROM Impairment limited L knee ROM Prison Goal (LTG) 0-120 degrees of L knee to improve gait and functional motion such as sit to stand without using stagger stance. LTG Duration 12 weeks Assessment Summary Assessment Pt has increased fatigue and soreness today and she stated it happens often because of MS . Will cont closely monitor pt 's tolerance. Pt's swelling on LLE has improved significantly. Recommended her to practice manual swelling management. Physical Therapy Plan Next Visit Focus/Plan Next Note Type Treatment Note Next Visit Plan gait trianing work on hip extenison Continue to progress stretngthening for the hip ER, hip flexibility and ROM, gait training, strengthening add bike if ok
--- NOTE | 2020-05-19 16:06 | PT.OTN ---
Current Diagnoses Presence of unspecified artificial hip joint (05/19/20) Physical Therapy Treatment Note PT-OP-A Visit Information Start: 04/30/20 15:48 Freq: Status: Active Protocol: Document 05/19/20 15:15 HH (Rec: 05/19/20 16:06 HH [id number]) Out-Patient Physical Therapy Visit Information Visit Information Visit Type Treatment Note Visit Start Time 15:16 Visit Stop Time 16:00 Total Visit Minutes 44 Visit Number 05/08 Number of AGRICULTURE PROFESSOR Visits 0 PT-OP-B Current Condition Start: 04/30/20 15:48 Freq: Status: Active Protocol: Document 04/28/20 13:45 HH (Rec: 04/30/20 16:02 HH [email or web address]) Current Condition History of Current Condition Onset Date Oct, 2019 Current Complaints Post L hip hemiartroplasty, difficulty in walking, L knee pain History of Current Condition Pt is a 85 yo female with multiple sclerosis, hypertension, hyperlipidemia, and hypothyroidism was in her usual state of health when she was closing the door to her refrigerator when she slipped and fell who broke her L femoral neck. Pt then admitetd to ER and had a L hip hemiarthroplasty in Oct, 2019. Pt also has a h/o L distal femur fracture with ORIF 2016. Her current c/o is very limited ambulation distance and mobility with her FWW, along with her ongoing L knee pain. Pt also has a hx multiple falls and has had HH services. She lives in a senior living home in a small apartment and stated the area is cramped and small. 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 Has radiograph for spine showed previous compression fx @T10, T12, L3 and L4 L distal femur fracture with ORIF 2016 Future Testing and Treatments Planned Currently attending wound clinic for wound care at [facility] Treatment Goals Patient/Caregiver Goals improve mobility, decrease, improve overall function Prior Functional Status Baseline Function- ADL's Modified Independent Baseline Function- Mobility Modified Independent Baseline Function- Gait short distance walk only with FWW Current Functional Impairments (Reported) Functional Limitations- Other short distance only with FWW asssitance needed for cleaning gait on level surface only Personal Factors Other Personal Factors That May Effect Multiple sclerosis, L distal Therapy/Recovery femur fx s/p orIf 07/2017, L hip athroplasty 10/2019, multiple compresison fx, hx of falls. PT-OP-C Subjective Start: 04/30/20 15:48 Freq: Status: Active Protocol: Document 05/19/20 15:15 HH (Rec: 05/19/20 16:06 HH [id number]) OP-PT Subjective Patient Comments Patient Comments I felt pretty good for the weekend and i was able to sit down without using my arms for the first time in years. Patient Reported Progress Improving PT-OP-D Balance Start: 04/30/20 15:48 Freq: Status: Active Protocol: Document 04/28/20 13:45 HH (Rec: 05/04/20 19:03 HH [email or web address]) Balance Tests Single Limb Standing Single Limb- Right unable Single Limb- Left unable PT-OP-G Mobility & Gait Start: 04/30/20 15:48 Freq: Status: Active Protocol: Document 04/28/20 13:45 HH (Rec: 05/04/20 19:03 HH [email or web address]) OP Mobility Evaluation Transfers Sit to Stand pt used stagger stance with LLE extended for STS OP Gait Assessment Gait Gait Assistance Required: Independent Able to Maintain Weight Bearing Status Yes During Gait Assistive Devices Assistive Device Front Wheeled Walker Orthotic/Prosthetic Devices or Brace: No Gait Deviations General Gait Pattern Antalgic,Decreased Stride Length,Decreased Feet Clearance,Flexed Trunk,Lateral Trunk Lean,Narrow Based Gait, Step-to Gait Factors Limiting Gait Function Factors Limiting Gait Function Decreased Activity Tolerance, Decreased Strength,Limited Range of Motion,Pain,Poor Balance,Poor Safety Awareness Comments Gait Comments Pt amb with a L toe in gait and no heel strike. Foot drap also noted. Pt has minimal to none knee flexion during swing phase on LLE. PT-OP-H Neuro Start: 04/30/20 15:48 Freq: Status: Active Protocol: Document 04/28/20 13:45 HH (Rec: 05/04/20 19:03 HH [email or web address]) Deep Tendon Reflex & Clonus Assessment Deep Tendon Reflex Right Patellar Deep Tendon Reflex 2+ Normal Bilateral Achilles Deep Tendon Reflex 2+ Normal Left Patellar Deep Tendon Reflex 1+ Diminished Vital Signs Blood Pressure Sitting Blood Pressure (90/60-120/80 mmHg) 135/74 H Blood Pressure Source Manual Cuff,Right Upper Extremity Oxygen Pulse Oximetry at Rest (%) (95-100 %) 96 Oxygen Delivery Method Room Air PT-OP-J Posture/Palpation/Skin Start: 04/30/20 15:48 Freq: Status: Active Protocol: Document 04/28/20 13:45 HH (Rec: 05/04/20 19:03 [email or web address]) Posture Evaluation Position Standing Evaluation View Anterior Weight Distribution Weight Shifted Right Hip Posture (L) Internally Rotated,(L) Abducted Knee Posture (L) Int. Tibial Torsion PT-OP-K Range of Motion Start: 04/30/20 15:48 Freq: Status: Active Protocol: Document 04/28/20 13:45 HH (Rec: 05/04/20 19:03 [email or web address]) Hip Goniometric Range of Motion Hip Right Passive Hip ROM WFL Yes Testing Position Supine Extension 8 Abduction 18 Internal Rotation 35 External Rotation 30 Left Passive Hip ROM WFL No Testing Position Supine Extension 0 Abduction 9 Internal Rotation 48 External Rotation 12 Hip ROM Limitations Hip ROM Limitations Soft Tissue Tightness,Muscle Weakness,Pain Knee Goniometric Range of Motion Knee Right Knee ROM WFL Yes Flexion Active (degrees) 125 Extension Active (degrees) 0 Left Knee ROM WFL No Patient Position Supine Flexion Active (degrees) 105 Extension Active (degrees) 9 Knee ROM Limitations Knee ROM Limitations Soft Tissue Tightness,Muscle Weakness,Pain Ankle and Foot Goniometric Range of Motion Ankle and Foot Right Active Ankle/Foot ROM WFL Yes Testing Position Supine Dorsiflexion with Knee Flexed 6 Left Active Ankle/Foot ROM WFL No Testing Position Supine Ankle and Foot ROM Limitations ROM Limitations Soft Tissue Tightness,Muscle Weakness,Pain,Swelling Comments Pt has marisela wrap for wound management on L ankle. Active DF= -5 degrees PT-OP-M Strength Start: 04/30/20 15:48 Freq: Status: Active Protocol: Document 04/28/20 13:45 HH (Rec: 05/04/20 19:03 [email or web address]) Hip Strength Hip Manual Muscle Testing Right Flexion (L2) 4 Good Extension (S1) 4 Good Abduction 4 Good Adduction 4 Good Left Flexion (L2) 4- Good- Extension (S1) 3+ Fair+ Abduction 3+ Fair+ Adduction 4- Good- Knee Strength Knee Manual Muscle Testing Right Flexion (S2) 4+ Good+ Extension (L3) 4+ Good+ Left Flexion (S2) 4- Good- Extension (L3) 4- Good- Ankle/Foot Strength Ankle and Foot Manual Muscle Testing Right Dorsiflexion (L4) 4 Good Plantarflexion (S1) 4 Good Inversion 4 Good Eversion (S1) 4 Good Left Dorsiflexion (L4) 3+ Fair+ Plantarflexion (S1) 4- Good- Inversion 4- Good- Eversion (S1) 4- Good- Comments Pt has marisela wrap for wound management on L ankle. PT-OP-Q Treatments Start: 04/30/20 15:48 Freq: Status: Active Protocol: Document 05/19/20 15:15 HH (Rec: 05/19/20 16:06 [id number]) Therapeutic Exercises Supine Exercises supine hip abduction. Supine Exercise Name slow eccentric control Side bilateral Reps/Minutes 8 x2 Comments followed by rolling pin massage psoas and rectus femoris stretching Supine Exercise Name alanna stretch position Side left Reps/Minutes 10 sec x 4 Comments hip at neutral Sitting Exercises seated hip abd Side bilateral Equipment Used yellow band Reps/Minutes 6 x2 Standing Exercises sit<->stand squats Standing Exercise Name from high chair and cues for hip ER Side bilateral Equipment Used with yellow band at knees Reps/Minutes 4 times x 2 Comments knees at 90 degrees, 3 times up without support Manual Therapy Treatment Soft Tissue Mobilization edema management Body Location L knee Mobilization Type Manual Lymphatic Drainage, Sustained Pressure,Trigger Point Release Intensity/Depth Moderate Body Position Hooklying Comments proximal direction for edema draiinage. Significant reduced edema noted since 2 weeks ago . adductors Body Location bilateral adductor release and manual stretch Mobilization Type Rolling,Sustained Pressure, Trigger Point Release Intensity/Depth Superficial Body Position Supine Comments hip adductors L quadriceps Body Location left quadricpes STM Mobilization Type Rolling,Sustained Pressure, Trigger Point Release Intensity/Depth Superficial Body Position Supine Comments pain noted at medial quadriceps scar tissue Mobilization Type Sustained Pressure,Trigger Point Release Intensity/Depth Superficial Body Position Supine Joint Mobilizations tibiofemoral Joint with IR for tibia Grade II Body Position Supine Reps/Duration 5 x 2 Comments during L knee flexion PT-OP-T Assessment and Plan Start: 04/30/20 15:48 Freq: Status: Active Protocol: Document 05/19/20 15:15 HH (Rec: 05/19/20 16:06 [id number]) Physical Therapy Assessment Goals LEFS Impairment pt scores 19/80 on LEFS Short Term Goal (STG) score 25/80 STG Duration 6 weeks Trim Machine Operator Goal (LTG) Pt will score 30 or greater to demonstrates improvements with functional mobility. LTG Duration 12 weeks L hip ROM Impairment Very limited L hip ROM Short Term Goal (STG) Pt will improve L hip AROM for all directions for 5 degrees STG Duration 6 weeks Detention Goal (LTG) Pt will improve L hip AROM for all directions by 10 degrees to improve gait efficiency especially hip extension during preswing. LTG Duration 12 weeks L knee ROM Impairment limited L knee ROM Detention Goal (LTG) 0-120 degrees of L knee to improve gait and functional motion such as sit to stand without using stagger stance. LTG Duration 12 weeks Assessment Summary Assessment Pt shows significant improvements with her edema today and she was able to stand to sit without UE support once during the weekend. Pt colton tx very well and focused on hip ER and STS Physical Therapy Plan Next Visit Focus/Plan Next Note Type Treatment Note Next Visit Plan gait trianing work on hip extenison Continue to progress stretngthening for the hip ER, hip flexibility and ROM, gait training, strengthening add bike if ok
--- NOTE | 2020-05-21 16:11 | PT.OTN ---
Current Diagnoses Presence of unspecified artificial hip joint (05/21/20) Physical Therapy Treatment Note PT-OP-A Visit Information Start: 04/30/20 15:48 Freq: Status: Active Protocol: Document 05/21/20 15:12 HH (Rec: 05/21/20 16:11 HH [id number]) Out-Patient Physical Therapy Visit Information Visit Information Visit Type Treatment Note Visit Start Time 15:15 Visit Stop Time 16:08 Total Visit Minutes 53 Visit Number 06/07 Number of ROTO GRAVURE PRESS OPERATOR Visits 0 PT-OP-B Current Condition Start: 04/30/20 15:48 Freq: Status: Active Protocol: Document 04/28/20 13:45 HH (Rec: 04/30/20 16:02 HH [email or web address]) Current Condition History of Current Condition Onset Date Oct, 2019 Current Complaints Post L hip hemiartroplasty, difficulty in walking, L knee pain History of Current Condition Pt is a 85 yo female with multiple sclerosis, hypertension, hyperlipidemia, and hypothyroidism was in her usual state of health when she was closing the door to her refrigerator when she slipped and fell who broke her L femoral neck. Pt then admitetd to ER and had a L hip hemiarthroplasty in Oct, 2019. Pt also has a h/o L distal femur fracture with ORIF 2016. Her current c/o is very limited ambulation distance and mobility with her FWW, along with her ongoing L knee pain. Pt also has a hx multiple falls and has had HH services. She lives in a half-way home in a small apartment and stated the area is cramped and small. 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 Has radiograph for spine showed previous compression fx @T10, T12, L3 and L4 L distal femur fracture with ORIF 2016 Future Testing and Treatments Planned Currently attending wound clinic for wound care at L medial ankle Treatment Goals Patient/Caregiver Goals improve mobility, decrease, improve overall function Prior Functional Status Baseline Function- ADL's Modified Independent Baseline Function- Mobility Modified Independent Baseline Function- Gait short distance walk only with FWW Current Functional Impairments (Reported) Functional Limitations- Other short distance only with FWW asssitance needed for cleaning gait on level surface only Personal Factors Other Personal Factors That May Effect Multiple sclerosis, L distal Therapy/Recovery femur fx s/p orIf 07/2017, L hip athroplasty 10/2019, multiple compresison fx, hx of falls. PT-OP-C Subjective Start: 04/30/20 15:48 Freq: Status: Active Protocol: Document 05/21/20 15:12 HH (Rec: 05/21/20 16:11 HH [id number]) OP-PT Subjective Patient Comments Patient Comments I felt sore yesterday so im little slow today. But overall its getting better. My wound care team said my swelling in my L leg is going down. Patient Reported Progress Improving PT-OP-D Balance Start: 04/30/20 15:48 Freq: Status: Active Protocol: Document 04/28/20 13:45 HH (Rec: 05/04/20 19:03 HH [email or web address]) Balance Tests Single Limb Standing Single Limb- Right unable Single Limb- Left unable PT-OP-G Mobility & Gait Start: 04/30/20 15:48 Freq: Status: Active Protocol: Document 04/28/20 13:45 HH (Rec: 05/04/20 19:03 HH [email or web address]) OP Mobility Evaluation Transfers Sit to Stand pt used stagger stance with LLE extended for STS OP Gait Assessment Gait Gait Assistance Required: Independent Able to Maintain Weight Bearing Status Yes During Gait Assistive Devices Assistive Device Front Wheeled Walker Orthotic/Prosthetic Devices or Brace: No Gait Deviations General Gait Pattern Antalgic,Decreased Stride Length,Decreased Feet Clearance,Flexed Trunk,Lateral Trunk Lean,Narrow Based Gait, Step-to Gait Factors Limiting Gait Function Factors Limiting Gait Function Decreased Activity Tolerance, Decreased Strength,Limited Range of Motion,Pain,Poor Balance,Poor Safety Awareness Comments Gait Comments Pt amb with a L toe in gait and no heel strike. Foot drap also noted. Pt has minimal to none knee flexion during swing phase on LLE. PT-OP-H Neuro Start: 04/30/20 15:48 Freq: Status: Active Protocol: Document 04/28/20 13:45 HH (Rec: 05/04/20 19:03 HH [email or web address]) Deep Tendon Reflex & Clonus Assessment Deep Tendon Reflex Right Patellar Deep Tendon Reflex 2+ Normal Bilateral Achilles Deep Tendon Reflex 2+ Normal Left Patellar Deep Tendon Reflex 1+ Diminished Vital Signs Blood Pressure Sitting Blood Pressure (90/60-120/80 mmHg) 135/74 H Blood Pressure Source Manual Cuff,Right Upper Extremity Oxygen Pulse Oximetry at Rest (%) (95-100 %) 96 Oxygen Delivery Method Room Air PT-OP-J Posture/Palpation/Skin Start: 04/30/20 15:48 Freq: Status: Active Protocol: Document 04/28/20 13:45 HH (Rec: 05/04/20 19:03 [email or web address]) Posture Evaluation Position Standing Evaluation View Anterior Weight Distribution Weight Shifted Right Hip Posture (L) Internally Rotated,(L) Abducted Knee Posture (L) Int. Tibial Torsion PT-OP-K Range of Motion Start: 04/30/20 15:48 Freq: Status: Active Protocol: Document 04/28/20 13:45 HH (Rec: 05/04/20 19:03 [email or web address]) Hip Goniometric Range of Motion Hip Right Passive Hip ROM WFL Yes Testing Position Supine Extension 8 Abduction 18 Internal Rotation 35 External Rotation 30 Left Passive Hip ROM WFL No Testing Position Supine Extension 0 Abduction 9 Internal Rotation 48 External Rotation 12 Hip ROM Limitations Hip ROM Limitations Soft Tissue Tightness,Muscle Weakness,Pain Knee Goniometric Range of Motion Knee Right Knee ROM WFL Yes Flexion Active (degrees) 125 Extension Active (degrees) 0 Left Knee ROM WFL No Patient Position Supine Flexion Active (degrees) 105 Extension Active (degrees) 9 Knee ROM Limitations Knee ROM Limitations Soft Tissue Tightness,Muscle Weakness,Pain Ankle and Foot Goniometric Range of Motion Ankle and Foot Right Active Ankle/Foot ROM WFL Yes Testing Position Supine Dorsiflexion with Knee Flexed 6 Left Active Ankle/Foot ROM WFL No Testing Position Supine Ankle and Foot ROM Limitations ROM Limitations Soft Tissue Tightness,Muscle Weakness,Pain,Swelling Comments Pt has marisela wrap for wound management on L ankle. Active DF= -5 degrees PT-OP-M Strength Start: 04/30/20 15:48 Freq: Status: Active Protocol: Document 04/28/20 13:45 HH (Rec: 05/04/20 19:03 [email or web address]) Hip Strength Hip Manual Muscle Testing Right Flexion (L2) 4 Good Extension (S1) 4 Good Abduction 4 Good Adduction 4 Good Left Flexion (L2) 4- Good- Extension (S1) 3+ Fair+ Abduction 3+ Fair+ Adduction 4- Good- Knee Strength Knee Manual Muscle Testing Right Flexion (S2) 4+ Good+ Extension (L3) 4+ Good+ Left Flexion (S2) 4- Good- Extension (L3) 4- Good- Ankle/Foot Strength Ankle and Foot Manual Muscle Testing Right Dorsiflexion (L4) 4 Good Plantarflexion (S1) 4 Good Inversion 4 Good Eversion (S1) 4 Good Left Dorsiflexion (L4) 3+ Fair+ Plantarflexion (S1) 4- Good- Inversion 4- Good- Eversion (S1) 4- Good- Comments Pt has marisela wrap for wound management on L ankle. PT-OP-Q Treatments Start: 04/30/20 15:48 Freq: Status: Active Protocol: Document 05/21/20 15:12 (Rec: 05/21/20 16:11 [id number]) Therapeutic Exercises Supine Exercises supine hip abduction. Supine Exercise Name slow eccentric control Side bilateral Reps/Minutes 8 x2 Comments followed by rolling pin massage Standing Exercises ankle board Standing Exercise Name DF and PF Side bilateral Equipment Used with grab bar sit<->stand squats Standing Exercise Name from high chair and cues for hip ER Side bilateral Reps/Minutes 5 times Comments with minimal pull to stand Gait Training Gait Activity gait in // bars Description weight acceptance for LLE Device Used gait belt Level of Assistance CGA Surface ground level Distance/Duration in place Treatment Focus stance phase Comments focus on vijay strike and heel raise during stance phase for 16 mins Manual Therapy Treatment Soft Tissue Mobilization edema management Body Location L knee Mobilization Type Manual Lymphatic Drainage, Sustained Pressure,Trigger Point Release Intensity/Depth Moderate Body Position Hooklying Comments proximal direction for edema draiinage. Significant reduced edema noted since 2 weeks ago . adductors Body Location bilateral adductor release and manual stretch Mobilization Type Rolling,Sustained Pressure, Trigger Point Release Intensity/Depth Superficial Body Position Supine Comments hip adductors L quadriceps Body Location left quadricpes STM Mobilization Type Rolling,Sustained Pressure, Trigger Point Release Intensity/Depth Superficial Body Position Supine Comments pain noted at medial quadriceps Joint Mobilizations tibiofemoral Joint with IR for tibia Grade II Body Position Supine Reps/Duration 5 x 2 Comments during L knee flexion PT-OP-R Modalities Start: 04/30/20 15:48 Freq: Status: Active Protocol: Document 05/21/20 16:11 HH (Rec: 05/21/20 16:11 [id number]) Hot Pack/Cold Pack Treatment Cold Pack Location L lateral thigh Patient Position Hooklying Treatment Duration (minutes) 5 Patient Tolerance Good PT-OP-T Assessment and Plan Start: 04/30/20 15:48 Freq: Status: Active Protocol: Document 05/21/20 15:12 (Rec: 05/21/20 16:11 [id number]) Physical Therapy Assessment Goals LEFS Impairment pt scores 19/80 on LEFS Short Term Goal (STG) score 25/80 STG Duration 6 weeks Electrical Cad Technician Goal (LTG) Pt will score 30 or greater to demonstrates improvements with functional mobility. LTG Duration 12 weeks L hip ROM Impairment Very limited L hip ROM Short Term Goal (STG) Pt will improve L hip AROM for all directions for 5 degrees STG Duration 6 weeks Group Home Goal (LTG) Pt will improve L hip AROM for all directions by 10 degrees to improve gait efficiency especially hip extension during preswing. LTG Duration 12 weeks L knee ROM Impairment limited L knee ROM Group Home Goal (LTG) 0-120 degrees of L knee to improve gait and functional motion such as sit to stand without using stagger stance. LTG Duration 12 weeks Assessment Summary Assessment Pt has residual pain at ankle after her wound care appointment. Recommended her to seperate her appointments into two different days. Tx focused primarily on gait training for stance phase. Pt needed 1 UE support on grab bar but she was able to facilitate heel strike and heel raise during stance phase . Pt has limited DF on L from her chronic wound which cause early heel raise. Physical Therapy Plan Next Visit Focus/Plan Next Note Type Treatment Note Next Visit Plan gait trianing work on hip extenison Continue to progress stretngthening for the hip ER, hip flexibility and ROM, gait training, strengthening add bike if ok
--- NOTE | 2020-05-26 16:13 | PT.OTN ---
Current Diagnoses Presence of unspecified artificial hip joint (05/26/20) Physical Therapy Treatment Note PT-OP-A Visit Information Start: 04/30/20 15:48 Freq: Status: Active Protocol: Document 05/26/20 15:23 HH (Rec: 05/26/20 16:13 HH [id number]) Out-Patient Physical Therapy Visit Information Visit Information Visit Type Treatment Note Visit Start Time 15:20 Visit Stop Time 16:05 Total Visit Minutes 45 Visit Number 07/08 Number of HOOKER OPERATOR Visits 0 PT-OP-B Current Condition Start: 04/30/20 15:48 Freq: Status: Active Protocol: Document 04/28/20 13:45 HH (Rec: 04/30/20 16:02 HH [email or web address]) Current Condition History of Current Condition Onset Date Oct, 2019 Current Complaints Post L hip hemiartroplasty, difficulty in walking, L knee pain History of Current Condition Pt is a 85 yo female with multiple sclerosis, hypertension, hyperlipidemia, and hypothyroidism was in her usual state of health when she was closing the door to her refrigerator when she slipped and fell who broke her L femoral neck. Pt then admitetd to ER and had a L hip hemiarthroplasty in Oct, 2019. Pt also has a h/o L distal femur fracture with ORIF 2016. Her current c/o is very limited ambulation distance and mobility with her FWW, along with her ongoing L knee pain. Pt also has a hx multiple falls and has had HH services. She lives in a care home home in a small apartment and stated the area is cramped and small. 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 Has radiograph for spine showed previous compression fx @T10, T12, L3 and L4 L distal femur fracture with ORIF 2016 Future Testing and Treatments Planned Currently attending wound clinic for wound care at L medial ankle Treatment Goals Patient/Caregiver Goals improve mobility, decrease, improve overall function Prior Functional Status Baseline Function- ADL's Modified Independent Baseline Function- Mobility Modified Independent Baseline Function- Gait short distance walk only with FWW Current Functional Impairments (Reported) Functional Limitations- Other short distance only with FWW asssitance needed for cleaning gait on level surface only Personal Factors Other Personal Factors That May Effect Multiple sclerosis, L distal Therapy/Recovery femur fx s/p orIf 07/2017, L hip athroplasty 10/2019, multiple compresison fx, hx of falls. PT-OP-C Subjective Start: 04/30/20 15:48 Freq: Status: Active Protocol: Document 05/26/20 15:23 HH (Rec: 05/26/20 16:13 HH [id number]) OP-PT Subjective Patient Comments Patient Comments Geetha been massaging on my L leg and do all my exercises. So far so good. Patient Reported Progress Improving PT-OP-D Balance Start: 04/30/20 15:48 Freq: Status: Active Protocol: Document 04/28/20 13:45 HH (Rec: 05/04/20 19:03 HH [email or web address]) Balance Tests Single Limb Standing Single Limb- Right unable Single Limb- Left unable PT-OP-G Mobility & Gait Start: 04/30/20 15:48 Freq: Status: Active Protocol: Document 04/28/20 13:45 HH (Rec: 05/04/20 19:03 HH [email or web address]) OP Mobility Evaluation Transfers Sit to Stand pt used stagger stance with LLE extended for STS OP Gait Assessment Gait Gait Assistance Required: Independent Able to Maintain Weight Bearing Status Yes During Gait Assistive Devices Assistive Device Front Wheeled Walker Orthotic/Prosthetic Devices or Brace: No Gait Deviations General Gait Pattern Antalgic,Decreased Stride Length,Decreased Feet Clearance,Flexed Trunk,Lateral Trunk Lean,Narrow Based Gait, Step-to Gait Factors Limiting Gait Function Factors Limiting Gait Function Decreased Activity Tolerance, Decreased Strength,Limited Range of Motion,Pain,Poor Balance,Poor Safety Awareness Comments Gait Comments Pt amb with a L toe in gait and no heel strike. Foot drap also noted. Pt has minimal to none knee flexion during swing phase on LLE. PT-OP-H Neuro Start: 04/30/20 15:48 Freq: Status: Active Protocol: Document 04/28/20 13:45 HH (Rec: 05/04/20 19:03 HH [email or web address]) Deep Tendon Reflex & Clonus Assessment Deep Tendon Reflex Right Patellar Deep Tendon Reflex 2+ Normal Bilateral Achilles Deep Tendon Reflex 2+ Normal Left Patellar Deep Tendon Reflex 1+ Diminished Vital Signs Blood Pressure Sitting Blood Pressure (90/60-120/80 mmHg) 135/74 H Blood Pressure Source Manual Cuff,Right Upper Extremity Oxygen Pulse Oximetry at Rest (%) (95-100 %) 96 Oxygen Delivery Method Room Air PT-OP-J Posture/Palpation/Skin Start: 04/30/20 15:48 Freq: Status: Active Protocol: Document 04/28/20 13:45 HH (Rec: 05/04/20 19:03 [email or web address]) Posture Evaluation Position Standing Evaluation View Anterior Weight Distribution Weight Shifted Right Hip Posture (L) Internally Rotated,(L) Abducted Knee Posture (L) Int. Tibial Torsion PT-OP-K Range of Motion Start: 04/30/20 15:48 Freq: Status: Active Protocol: Document 04/28/20 13:45 HH (Rec: 05/04/20 19:03 [email or web address]) Hip Goniometric Range of Motion Hip Right Passive Hip ROM WFL Yes Testing Position Supine Extension 8 Abduction 18 Internal Rotation 35 External Rotation 30 Left Passive Hip ROM WFL No Testing Position Supine Extension 0 Abduction 9 Internal Rotation 48 External Rotation 12 Hip ROM Limitations Hip ROM Limitations Soft Tissue Tightness,Muscle Weakness,Pain Knee Goniometric Range of Motion Knee Right Knee ROM WFL Yes Flexion Active (degrees) 125 Extension Active (degrees) 0 Left Knee ROM WFL No Patient Position Supine Flexion Active (degrees) 105 Extension Active (degrees) 9 Knee ROM Limitations Knee ROM Limitations Soft Tissue Tightness,Muscle Weakness,Pain Ankle and Foot Goniometric Range of Motion Ankle and Foot Right Active Ankle/Foot ROM WFL Yes Testing Position Supine Dorsiflexion with Knee Flexed 6 Left Active Ankle/Foot ROM WFL No Testing Position Supine Ankle and Foot ROM Limitations ROM Limitations Soft Tissue Tightness,Muscle Weakness,Pain,Swelling Comments Pt has marisela wrap for wound management on L ankle. Active DF= -5 degrees PT-OP-M Strength Start: 04/30/20 15:48 Freq: Status: Active Protocol: Document 04/28/20 13:45 HH (Rec: 05/04/20 19:03 [email or web address]) Hip Strength Hip Manual Muscle Testing Right Flexion (L2) 4 Good Extension (S1) 4 Good Abduction 4 Good Adduction 4 Good Left Flexion (L2) 4- Good- Extension (S1) 3+ Fair+ Abduction 3+ Fair+ Adduction 4- Good- Knee Strength Knee Manual Muscle Testing Right Flexion (S2) 4+ Good+ Extension (L3) 4+ Good+ Left Flexion (S2) 4- Good- Extension (L3) 4- Good- Ankle/Foot Strength Ankle and Foot Manual Muscle Testing Right Dorsiflexion (L4) 4 Good Plantarflexion (S1) 4 Good Inversion 4 Good Eversion (S1) 4 Good Left Dorsiflexion (L4) 3+ Fair+ Plantarflexion (S1) 4- Good- Inversion 4- Good- Eversion (S1) 4- Good- Comments Pt has marisela wrap for wound management on L ankle. PT-OP-Q Treatments Start: 04/30/20 15:48 Freq: Status: Active Protocol: Document 05/26/20 15:23 HH (Rec: 05/26/20 16:13 [id number]) Therapeutic Exercises Supine Exercises supine hip abduction. Supine Exercise Name slow eccentric control Side bilateral Reps/Minutes 8 x2 Comments followed by rolling pin massage Bridging Side bilateral Reps/Minutes 8 times x 2 Comments cues on PPT Standing Exercises ankle board Standing Exercise Name DF and PF Side bilateral Equipment Used with grab bar sit<->stand squats Standing Exercise Name from high chair and cues for hip ER Side bilateral Reps/Minutes 5 times Comments cues on L hip ER Gait Training Gait Activity gait in // bars Description weight acceptance for LLE Device Used gait belt Level of Assistance CGA Surface ground level Distance/Duration in place Treatment Focus stance phase Comments focus on push off today for 14 mins Manual Therapy Treatment Soft Tissue Mobilization edema management Body Location L knee Mobilization Type Manual Lymphatic Drainage, Sustained Pressure,Trigger Point Release Intensity/Depth Moderate Body Position Hooklying Comments proximal direction for edema draiinage. reduced edema noted from last week. adductors Body Location bilateral adductor release and manual stretch Mobilization Type Rolling,Sustained Pressure, Trigger Point Release Intensity/Depth Superficial Body Position Supine Comments hip adductors PT-OP-R Modalities Start: 04/30/20 15:48 Freq: Status: Active Protocol: Document 05/21/20 16:11 (Rec: 05/21/20 16:11 [id number]) Hot Pack/Cold Pack Treatment Cold Pack Location L lateral thigh Patient Position Hooklying Treatment Duration (minutes) 5 Patient Tolerance Good PT-OP-T Assessment and Plan Start: 04/30/20 15:48 Freq: Status: Active Protocol: Document 05/26/20 15:23 (Rec: 05/26/20 16:13 [id number]) Physical Therapy Assessment Goals LEFS Impairment pt scores 19/80 on LEFS Short Term Goal (STG) score 25/80 STG Duration 6 weeks Residential Goal (LTG) Pt will score 30 or greater to demonstrates improvements with functional mobility. LTG Duration 12 weeks L hip ROM Impairment Very limited L hip ROM Short Term Goal (STG) Pt will improve L hip AROM for all directions for 5 degrees STG Duration 6 weeks Curriculum And Instruction Director Goal (LTG) Pt will improve L hip AROM for all directions by 10 degrees to improve gait efficiency especially hip extension during preswing. LTG Duration 12 weeks L knee ROM Impairment limited L knee ROM Residential Goal (LTG) 0-120 degrees of L knee to improve gait and functional motion such as sit to stand without using stagger stance. LTG Duration 12 weeks Assessment Summary Assessment Pt cont to show improved edema on LLE but still has difficulty with L hip ER. Pt overall shows improved activity tolerance with minimal discomfort. Tx focused on L foot push off during gait training Physical Therapy Plan Next Visit Focus/Plan Next Note Type Progress Note Next Visit Plan gait trianing work on hip extenison Continue to progress stretngthening for the hip ER, hip flexibility and ROM, gait training, strengthening add bike if ok
--- NOTE | 2020-05-28 18:27 | PT.OTN ---
Current Diagnoses Presence of unspecified artificial hip joint (05/28/20) Physical Therapy Treatment Note PT-OP-A Visit Information Start: 04/30/20 15:48 Freq: Status: Active Protocol: Document 05/28/20 15:22 HH (Rec: 05/28/20 16:05 HH [id number]) Out-Patient Physical Therapy Visit Information Visit Information Visit Type Treatment Note Visit Start Time 15:18 Visit Stop Time 16:00 Total Visit Minutes 42 Visit Number 08/08 Number of RN DIABETES Visits 0 PT-OP-B Current Condition Start: 04/30/20 15:48 Freq: Status: Active Protocol: Document 04/28/20 13:45 HH (Rec: 04/30/20 16:02 HH [email or web address]) Current Condition History of Current Condition Onset Date Oct, 2019 Current Complaints Post L hip hemiartroplasty, difficulty in walking, L knee pain History of Current Condition Pt is a 85 yo female with multiple sclerosis, hypertension, hyperlipidemia, and hypothyroidism was in her usual state of health when she was closing the door to her refrigerator when she slipped and fell who broke her L femoral neck. Pt then admitetd to ER and had a L hip hemiarthroplasty in Oct, 2019. Pt also has a h/o L distal femur fracture with ORIF 2016. Her current c/o is very limited ambulation distance and mobility with her FWW, along with her ongoing L knee pain. Pt also has a hx multiple falls and has had HH services. She lives in a nursing home home in a small apartment and stated the area is cramped and small. 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 Has radiograph for spine showed previous compression fx @T10, T12, L3 and L4 L distal femur fracture with ORIF 2016 Future Testing and Treatments Planned Currently attending wound clinic for wound care at L medial ankle Treatment Goals Patient/Caregiver Goals improve mobility, decrease, improve overall function Prior Functional Status Baseline Function- ADL's Modified Independent Baseline Function- Mobility Modified Independent Baseline Function- Gait short distance walk only with FWW Current Functional Impairments (Reported) Functional Limitations- Other short distance only with FWW asssitance needed for cleaning gait on level surface only Personal Factors Other Personal Factors That May Effect Multiple sclerosis, L distal Therapy/Recovery femur fx s/p orIf 07/2017, L hip athroplasty 10/2019, multiple compresison fx, hx of falls. PT-OP-C Subjective Start: 04/30/20 15:48 Freq: Status: Active Protocol: Document 05/28/20 15:22 HH (Rec: 05/28/20 16:05 HH [id number]) OP-PT Subjective Patient Comments Patient Comments Im going to have vein laser surgery to help my healing process. I was doing pretty good yesterday but everything is off today and i dont know why. Patient Reported Progress Same PT-OP-D Balance Start: 04/30/20 15:48 Freq: Status: Active Protocol: Document 04/28/20 13:45 HH (Rec: 05/04/20 19:03 [email or web address]) Balance Tests Single Limb Standing Single Limb- Right unable Single Limb- Left unable PT-OP-G Mobility & Gait Start: 04/30/20 15:48 Freq: Status: Active Protocol: Document 04/28/20 13:45 HH (Rec: 05/04/20 19:03 HH [email or web address]) OP Mobility Evaluation Transfers Sit to Stand pt used stagger stance with LLE extended for STS OP Gait Assessment Gait Gait Assistance Required: Independent Able to Maintain Weight Bearing Status Yes During Gait Assistive Devices Assistive Device Front Wheeled Walker Orthotic/Prosthetic Devices or Brace: No Gait Deviations General Gait Pattern Antalgic,Decreased Stride Length,Decreased Feet Clearance,Flexed Trunk,Lateral Trunk Lean,Narrow Based Gait, Step-to Gait Factors Limiting Gait Function Factors Limiting Gait Function Decreased Activity Tolerance, Decreased Strength,Limited Range of Motion,Pain,Poor Balance,Poor Safety Awareness Comments Gait Comments Pt amb with a L toe in gait and no heel strike. Foot drap also noted. Pt has minimal to none knee flexion during swing phase on LLE. PT-OP-H Neuro Start: 04/30/20 15:48 Freq: Status: Active Protocol: Document 04/28/20 13:45 HH (Rec: 05/04/20 19:03 HH [email or web address]) Deep Tendon Reflex & Clonus Assessment Deep Tendon Reflex Right Patellar Deep Tendon Reflex 2+ Normal Bilateral Achilles Deep Tendon Reflex 2+ Normal Left Patellar Deep Tendon Reflex 1+ Diminished Vital Signs Blood Pressure Sitting Blood Pressure (90/60-120/80 mmHg) 135/74 H Blood Pressure Source Manual Cuff,Right Upper Extremity Oxygen Pulse Oximetry at Rest (%) (95-100 %) 96 Oxygen Delivery Method Room Air PT-OP-J Posture/Palpation/Skin Start: 04/30/20 15:48 Freq: Status: Active Protocol: Document 04/28/20 13:45 HH (Rec: 05/04/20 19:03 [email or web address]) Posture Evaluation Position Standing Evaluation View Anterior Weight Distribution Weight Shifted Right Hip Posture (L) Internally Rotated,(L) Abducted Knee Posture (L) Int. Tibial Torsion PT-OP-K Range of Motion Start: 04/30/20 15:48 Freq: Status: Active Protocol: Document 04/28/20 13:45 HH (Rec: 05/04/20 19:03 [email or web address]) Hip Goniometric Range of Motion Hip Right Passive Hip ROM WFL Yes Testing Position Supine Extension 8 Abduction 18 Internal Rotation 35 External Rotation 30 Left Passive Hip ROM WFL No Testing Position Supine Extension 0 Abduction 9 Internal Rotation 48 External Rotation 12 Hip ROM Limitations Hip ROM Limitations Soft Tissue Tightness,Muscle Weakness,Pain Knee Goniometric Range of Motion Knee Right Knee ROM WFL Yes Flexion Active (degrees) 125 Extension Active (degrees) 0 Left Knee ROM WFL No Patient Position Supine Flexion Active (degrees) 105 Extension Active (degrees) 9 Knee ROM Limitations Knee ROM Limitations Soft Tissue Tightness,Muscle Weakness,Pain Ankle and Foot Goniometric Range of Motion Ankle and Foot Right Active Ankle/Foot ROM WFL Yes Testing Position Supine Dorsiflexion with Knee Flexed 6 Left Active Ankle/Foot ROM WFL No Testing Position Supine Ankle and Foot ROM Limitations ROM Limitations Soft Tissue Tightness,Muscle Weakness,Pain,Swelling Comments Pt has marisela wrap for wound management on L ankle. Active DF= -5 degrees PT-OP-M Strength Start: 04/30/20 15:48 Freq: Status: Active Protocol: Document 04/28/20 13:45 HH (Rec: 05/04/20 19:03 [email or web address]) Hip Strength Hip Manual Muscle Testing Right Flexion (L2) 4 Good Extension (S1) 4 Good Abduction 4 Good Adduction 4 Good Left Flexion (L2) 4- Good- Extension (S1) 3+ Fair+ Abduction 3+ Fair+ Adduction 4- Good- Knee Strength Knee Manual Muscle Testing Right Flexion (S2) 4+ Good+ Extension (L3) 4+ Good+ Left Flexion (S2) 4- Good- Extension (L3) 4- Good- Ankle/Foot Strength Ankle and Foot Manual Muscle Testing Right Dorsiflexion (L4) 4 Good Plantarflexion (S1) 4 Good Inversion 4 Good Eversion (S1) 4 Good Left Dorsiflexion (L4) 3+ Fair+ Plantarflexion (S1) 4- Good- Inversion 4- Good- Eversion (S1) 4- Good- Comments Pt has marisela wrap for wound management on L ankle. PT-OP-Q Treatments Start: 04/30/20 15:48 Freq: Status: Active Protocol: Document 05/28/20 15:22 HH (Rec: 05/28/20 16:05 [id number]) Therapeutic Exercises Supine Exercises supine hip abduction. Supine Exercise Name slow eccentric control, no assistance Side left Reps/Minutes 8 x2 Comments cues on L isolated ABD/ER Sidelying Exercises clamshell Comments unable Standing Exercises ankle board Standing Exercise Name DF and PF Side bilateral Equipment Used without using grab bar Reps/Minutes 2 mins Gait Training Gait Activity gait in // bars Description weight acceptance for LLE Device Used gait belt Level of Assistance CGA Surface ground level Distance/Duration in place Treatment Focus stance phase Comments focus on push off today for 12 mins Manual Therapy Treatment Soft Tissue Mobilization edema management Body Location L knee Mobilization Type Manual Lymphatic Drainage, Sustained Pressure,Trigger Point Release Intensity/Depth Moderate Body Position Hooklying Comments proximal direction for edema draiinage. slight increased edema noted from last visit today. adductors Body Location bilateral adductor release and manual stretch Mobilization Type Rolling,Sustained Pressure, Trigger Point Release Intensity/Depth Superficial Body Position Supine Comments hip adductors L quadriceps Body Location left quadricpes STM Mobilization Type Rolling,Sustained Pressure, Trigger Point Release Intensity/Depth Superficial Body Position Supine Comments pain noted at medial quadriceps PT-OP-R Modalities Start: 04/30/20 15:48 Freq: Status: Active Protocol: Document 05/21/20 16:11 (Rec: 05/21/20 16:11 [id number]) Hot Pack/Cold Pack Treatment Cold Pack Location L lateral thigh Patient Position Hooklying Treatment Duration (minutes) 5 Patient Tolerance Good PT-OP-T Assessment and Plan Start: 04/30/20 15:48 Freq: Status: Active Protocol: Document 05/28/20 15:22 (Rec: 05/28/20 16:05 [id number]) Physical Therapy Assessment Goals LEFS Impairment pt scores 19/80 on LEFS Short Term Goal (STG) score 25/80 STG Duration 6 weeks [employer] Goal (LTG) Pt will score 30 or greater to demonstrates improvements with functional mobility. LTG Duration 12 weeks L hip ROM Impairment Very limited L hip ROM Short Term Goal (STG) Pt will improve L hip AROM for all directions for 5 degrees STG Duration 6 weeks Nursing Home Goal (LTG) Pt will improve L hip AROM for all directions by 10 degrees to improve gait efficiency especially hip extension during preswing. LTG Duration 12 weeks L knee ROM Impairment limited L knee ROM Nursing Home Goal (LTG) 0-120 degrees of L knee to improve gait and functional motion such as sit to stand without using stagger stance. LTG Duration 12 weeks Assessment Summary Assessment Pt is going to have laser vein surgery next tu and will skip therapy for 10 days. Educated pt to cont practice AP weight shift focusing on stance phase of LLE. Pt also has improved isolated ER in supine. Next visit is progress report Physical Therapy Plan Next Visit Focus/Plan Next Note Type Progress Note Next Visit Plan gait trianing work on hip extenison Continue to progress stretngthening for the hip ER, hip flexibility and ROM, gait training, strengthening add bike if ok
--- NOTE | 2020-06-09 15:38 | PT-OP ANOTE ---
Pt's dtr called in earlier to cancel her appointment since she was sleeping soundly at home.
--- NOTE | 2020-06-16 16:35 | PT.OTRE ---
Current Diagnoses Presence of unspecified artificial hip joint (06/16/20) Past Medical History (Last Reviewed 11/13/19 @ 06:25 by ADRIANA Brower) Hyperlipidemia (Inactive) Hypertension, essential (Inactive) Hypothyroid (Chronic) Left femoral shaft fracture (Acute) Multiple sclerosis (Inactive) Surgical History (Last Reviewed 11/13/19 @ 06:25 by ADRIANA Brower) H/O cataract removal with insertion of prosthetic lens (Acute) H/O esophageal hernia repair (Acute) Visit Care Team Role Provider Type Blayne Sims MD Primary Care Provider Physician Specialty: Internal Medicine Address: [address] [place] [address], [address] Email: [email or web address] João Urena MD Attending Provider Physician Referring Provider Specialty: Orthopedic Surgery Address: [address] [place] [address], [address] Email: [email or web address] Re-Evaluation PT-OP-A Visit Information Start: 04/30/20 15:48 Freq: Status: Active Protocol: Document 06/16/20 16:14 HH (Rec: 06/16/20 16:30 HH [email or web address]) Out-Patient Physical Therapy Visit Information Visit Information Visit Type Re-Evaluation Visit Note Pt did not have vein laser surgery since she had a fall 2 weeks ago. Pt slid out of the bed accidentally and landed on her L leg. Pt reports of L leg pain and increased swelling every since Visit Start Time 15:16 Visit Stop Time 16:00 Total Visit Minutes 44 Visit Number 09/07 Number of HOSPITAL CLEANER Visits 0 PT-OP-B Current Condition Start: 04/30/20 15:48 Freq: Status: Active Protocol: Document 04/28/20 13:45 HH (Rec: 04/30/20 16:02 HH [email or web address]) Current Condition History of Current Condition Onset Date Oct, 2019 Current Complaints Post L hip hemiartroplasty, difficulty in walking, L knee pain History of Current Condition Pt is a 85 yo female with multiple sclerosis, hypertension, hyperlipidemia, and hypothyroidism was in her usual state of health when she was closing the door to her refrigerator when she slipped and fell who broke her L femoral neck. Pt then admitetd to ER and had a L hip hemiarthroplasty in Oct, 2019. Pt also has a h/o L distal femur fracture with ORIF 2016. Her current c/o is very limited ambulation distance and mobility with her FWW, along with her ongoing L knee pain. Pt also has a hx multiple falls and has had HH services. She lives in a assisted home in a small apartment and stated the area is cramped and small. 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 Has radiograph for spine showed previous compression fx @T10, T12, L3 and L4 L distal femur fracture with ORIF 2016 Future Testing and Treatments Planned Currently attending wound clinic for wound care at L medial ankle Treatment Goals Patient/Caregiver Goals improve mobility, decrease, improve overall function Prior Functional Status Baseline Function- ADL's Modified Independent Baseline Function- Mobility Modified Independent Baseline Function- Gait short distance walk only with FWW Current Functional Impairments (Reported) Functional Limitations- Other short distance only with FWW asssitance needed for cleaning gait on level surface only Personal Factors Other Personal Factors That May Effect Multiple sclerosis, L distal Therapy/Recovery femur fx s/p orIf 07/2017, L hip athroplasty 10/2019, multiple compresison fx, hx of falls. PT-OP-C Subjective Start: 04/30/20 15:48 Freq: Status: Active Protocol: Document 06/16/20 16:14 HH (Rec: 06/16/20 16:30 HH [email or web address]) OP-PT Subjective Patient Comments Patient Comments My left leg is so swollen that vel never had that. Im not able to walk much and bend much since my knee hurts a lot. Patient Reported Progress Worse PT-OP-D Balance Start: 04/30/20 15:48 Freq: Status: Active Protocol: Document 04/28/20 13:45 HH (Rec: 05/04/20 19:03 [email or web address]) Balance Tests Single Limb Standing Single Limb- Right unable Single Limb- Left unable PT-OP-G Mobility & Gait Start: 04/30/20 15:48 Freq: Status: Active Protocol: Document 04/28/20 13:45 HH (Rec: 05/04/20 19:03 [email or web address]) OP Mobility Evaluation Transfers Sit to Stand pt used stagger stance with LLE extended for STS OP Gait Assessment Gait Gait Assistance Required: Independent Able to Maintain Weight Bearing Status Yes During Gait Assistive Devices Assistive Device Front Wheeled Walker Orthotic/Prosthetic Devices or Brace: No Gait Deviations General Gait Pattern Antalgic,Decreased Stride Length,Decreased Feet Clearance,Flexed Trunk,Lateral Trunk Lean,Narrow Based Gait, Step-to Gait Factors Limiting Gait Function Factors Limiting Gait Function Decreased Activity Tolerance, Decreased Strength,Limited Range of Motion,Pain,Poor Balance,Poor Safety Awareness Comments Gait Comments Pt amb with a L toe in gait and no heel strike. Foot drap also noted. Pt has minimal to none knee flexion during swing phase on LLE. PT-OP-H Neuro Start: 04/30/20 15:48 Freq: Status: Active Protocol: Document 04/28/20 13:45 HH (Rec: 05/04/20 19:03 [email or web address]) Deep Tendon Reflex & Clonus Assessment Deep Tendon Reflex Right Patellar Deep Tendon Reflex 2+ Normal Bilateral Achilles Deep Tendon Reflex 2+ Normal Left Patellar Deep Tendon Reflex 1+ Diminished Vital Signs Blood Pressure Sitting Blood Pressure (90/60-120/80 mmHg) 135/74 H Blood Pressure Source Manual Cuff,Right Upper Extremity Oxygen Pulse Oximetry at Rest (%) (95-100 %) 96 Oxygen Delivery Method Room Air PT-OP-J Posture/Palpation/Skin Start: 04/30/20 15:48 Freq: Status: Active Protocol: Document 06/16/20 15:16 HH (Rec: 06/16/20 16:34 HH [email or web address]) Skin Assessment Edema Assessment Left Leg Edema Type Pitting Edema Degree 2+ Edema Appearance Firm Subjective Edema Description Tightness Comments significant edema located anterior and posterior aspect of medial L knee. (with pain to touch at medial joint line) Circumference Measurement R knee Location 5cm above of patella= 16, center of patella = 16, tibial tub= 14 L knee Location 5cm above of patella= 20, center of patella = 19, tibial tub= 16 PT-OP-K Range of Motion Start: 04/30/20 15:48 Freq: Status: Active Protocol: Document 06/16/20 15:16 HH (Rec: 06/16/20 16:34 HH [email or web address]) Knee Goniometric Range of Motion Knee Measured in Degrees Right Knee ROM WFL Yes Left Knee ROM WFL No Patient Position Supine Flexion Active (degrees) 63 Extension Active (degrees) 8 PT-OP-M Strength Start: 04/30/20 15:48 Freq: Status: Active Protocol: Document 04/28/20 13:45 HH (Rec: 05/04/20 19:03 HH [email or web address]) Hip Strength Hip Manual Muscle Testing Right Flexion (L2) 4 Good Extension (S1) 4 Good Abduction 4 Good Adduction 4 Good Left Flexion (L2) 4- Good- Extension (S1) 3+ Fair+ Abduction 3+ Fair+ Adduction 4- Good- Knee Strength Knee Manual Muscle Testing Right Flexion (S2) 4+ Good+ Extension (L3) 4+ Good+ Left Flexion (S2) 4- Good- Extension (L3) 4- Good- Ankle/Foot Strength Ankle and Foot Manual Muscle Testing Right Dorsiflexion (L4) 4 Good Plantarflexion (S1) 4 Good Inversion 4 Good Eversion (S1) 4 Good Left Dorsiflexion (L4) 3+ Fair+ Plantarflexion (S1) 4- Good- Inversion 4- Good- Eversion (S1) 4- Good- Comments Pt has marisela wrap for wound management on L ankle. PT-OP-Q Treatments Start: 04/30/20 15:48 Freq: Status: Active Protocol: Document 06/16/20 16:14 HH (Rec: 06/16/20 16:30 HH [email or web address]) Manual Therapy Treatment Soft Tissue Mobilization edema management Body Location L knee Mobilization Type Manual Lymphatic Drainage, Sustained Pressure,Trigger Point Release Intensity/Depth Moderate Body Position Hooklying Comments proximal direction for edema drainage. Significant increased 1+ pitting edema noted from last visit. Warm to touch and medial joint line is painful to touch adductors Body Location bilateral adductor release and manual stretch Mobilization Type Rolling,Sustained Pressure, Trigger Point Release Intensity/Depth Superficial Body Position Supine Comments hip adductors L quadriceps Body Location left quadricpes STM Mobilization Type Rolling,Sustained Pressure, Trigger Point Release Intensity/Depth Superficial Body Position Supine Comments pain noted at medial quadriceps PT-OP-R Modalities Start: 04/30/20 15:48 Freq: Status: Active Protocol: Document 05/21/20 16:11 HH (Rec: 05/21/20 16:11 HH [email or web address]) Hot Pack/Cold Pack Treatment Cold Pack Location L lateral thigh Patient Position Hooklying Treatment Duration (minutes) 5 Patient Tolerance Good PT-OP-T Assessment and Plan Start: 04/30/20 15:48 Freq: Status: Active Protocol: Document 06/16/20 16:14 HH (Rec: 06/16/20 16:30 [email or web address]) Physical Therapy Assessment Goals LEFS Impairment pt scores 19/80 on LEFS Short Term Goal (STG) score 25/80 STG Duration 6 weeks Snf Goal (LTG) Pt will score 30 or greater to demonstrates improvements with functional mobility. LTG Duration 12 weeks L hip ROM Impairment Very limited L hip ROM Short Term Goal (STG) Pt will improve L hip AROM for all directions for 5 degrees STG Duration 6 weeks Forestry Professor Goal (LTG) Pt will improve L hip AROM for all directions by 10 degrees to improve gait efficiency especially hip extension during preswing. LTG Duration 12 weeks L knee ROM Impairment limited L knee ROM Snf Goal (LTG) 0-120 degrees of L knee to improve gait and functional motion such as sit to stand without using stagger stance. LTG Duration 12 weeks Progress Towards Goals Progress Towards Goals Slow Progress due to Medical Issues Assessment Summary Assessment Pt had a fall 2 weeks ago and landed on her LLE who had to reschedule her vein removal surgery. Her recent x-ray for both femur and tibia and vascular ultrasound are both unremarkable. However, Pt shows significant increased swelling at L knee today (2+ pitting edema) especially medial joint line. Her knee is warm to touch and medial joint line is painful to touch . Pt has decreased AROM as well. This PT is unable to rule out ligamentous/ muscular / meniscal injury d/t her significant pain and swelling. This session focused on reassessment and swelling management via manual therapy. Her knee flexion and swelling did get slightly better after . Will cont to follow up with pt's progress and assess her symptoms. If pt did not have further injury, pt will cont benefit from skilled therapy to improve her hip and knee ROM, balance, strength and stability in order to improve her functional mobility. Physical Therapy Plan Frequency and Duration Frequency of Treatment 2x/Week Duration of Treatment 8 weeks Plan of Care Start Date 06/16/20 Plan of Care End Date 08/15/20 Therapeutic Interventions Therapeutic Interventions Balance Training,Gait Training ,Home Exercise Program,Joint Mobilizations,Manual Therapy, Neuromuscular Re-education, Patient/Caregiver Education, Self-Care/Home Management,Soft Tissue Mobilization, Therapeutic Activities, Therapeutic Exercises Modalities Cold Pack/Ice Massage,Electric Stimulation,Hot Packs, Infrared Therapy Next Visit Focus/Plan Next Note Type Treatment Note Next Visit Plan reassess her symptoms check circumference ROM ex gait training
--- NOTE | 2020-06-16 16:36 | PT.OPPOC ---
Physical, Occupational & Speech Therapy At [facility] Current Diagnoses Presence of unspecified artificial hip joint (06/16/20) Visit Care Team Role Provider Type Blayne Sims MD Primary Care Provider Physician Specialty: Internal Medicine Address: [address] [place] [address], [id number] Email: [email or web address] João Urena MD Attending Provider Physician Referring Provider Specialty: Orthopedic Surgery Address: [address] [place] [address], [id number] Email: [email or web address] Plan Of Care PT-OP-T Assessment and Plan Start: 04/30/20 15:48 Freq: Status: Active Protocol: Document 06/16/20 16:14 HH (Rec: 06/16/20 16:30 HH [email or web address]) Physical Therapy Assessment Goals LEFS Impairment pt scores 19/80 on LEFS Short Term Goal (STG) score 25/80 STG Duration 6 weeks Associate Brand Manager Goal (LTG) Pt will score 30 or greater to demonstrates improvements with functional mobility. LTG Duration 12 weeks L hip ROM Impairment Very limited L hip ROM Short Term Goal (STG) Pt will improve L hip AROM for all directions for 5 degrees STG Duration 6 weeks Residential Goal (LTG) Pt will improve L hip AROM for all directions by 10 degrees to improve gait efficiency especially hip extension during preswing. LTG Duration 12 weeks L knee ROM Impairment limited L knee ROM Associate Brand Manager Goal (LTG) 0-120 degrees of L knee to improve gait and functional motion such as sit to stand without using stagger stance. LTG Duration 12 weeks Progress Towards Goals Progress Towards Goals Slow Progress due to Medical Issues Assessment Summary Assessment Pt had a fall 2 weeks ago and landed on her LLE who had to reschedule her vein removal surgery. Her recent x-ray for both femur and tibia and vascular ultrasound are both unremarkable. However, Pt shows significant increased swelling at L knee today (2+ pitting edema) especially medial joint line. Her knee is warm to touch and medial joint line is painful to touch . Pt has decreased AROM as well. This PT is unable to rule out ligamentous/ muscular / meniscal injury d/t her significant pain and swelling. This session focused on reassessment and swelling management via manual therapy. Her knee flexion and swelling did get slightly better after . Will cont to follow up with pt's progress and assess her symptoms. If pt did not have further injury, pt will cont benefit from skilled therapy to improve her hip and knee ROM, balance, strength and stability in order to improve her functional mobility. Physical Therapy Plan Frequency and Duration Frequency of Treatment 2x/Week Duration of Treatment 8 weeks Plan of Care Start Date 06/16/20 Plan of Care End Date 08/15/20 Therapeutic Interventions Therapeutic Interventions Balance Training,Gait Training ,Home Exercise Program,Joint Mobilizations,Manual Therapy, Neuromuscular Re-education, Patient/Caregiver Education, Self-Care/Home Management,Soft Tissue Mobilization, Therapeutic Activities, Therapeutic Exercises Modalities Cold Pack/Ice Massage,Electric Stimulation,Hot Packs, Infrared Therapy Next Visit Focus/Plan Next Note Type Treatment Note Next Visit Plan reassess her symptoms check circumference ROM ex gait training Plan of Care Dates Plan of Care Start Date 06/16/20 Plan of Care End Date 08/15/20 Electronically Signed by: Kingsley Banuelos, PT 06/16/20 [id number] Please Sign and Return: I have reviewed this Plan of Care and certify that the skilled therapy services above are required to meet the patient?s needs. Physician Signature Date Printed Name and Credentials Clinical Instructor Signature Printed Name and Credentials
--- NOTE | 2020-06-16 16:38 | PT.OPPOC ---
Physical, Occupational & Speech Therapy At [facility] Current Diagnoses Presence of unspecified artificial hip joint (06/16/20) Visit Care Team Role Provider Type Blayne Sims MD Primary Care Provider Physician Specialty: Internal Medicine Address: [address] [place] [address], [address] Email: [email or web address] João Urena MD Attending Provider Physician Referring Provider Specialty: Orthopedic Surgery Address: [address] [place] [address], [address] Email: [email or web address] Plan Of Care PT-OP-T Assessment and Plan Start: 04/30/20 15:48 Freq: Status: Active Protocol: Document 06/16/20 16:14 HH (Rec: 06/16/20 16:30 HH [email or web address]) Physical Therapy Assessment Goals LEFS Impairment pt scores 19/80 on LEFS Short Term Goal (STG) score 25/80 STG Duration 6 weeks Steam Generating Powerplant Mechanic Goal (LTG) Pt will score 30 or greater to demonstrates improvements with functional mobility. LTG Duration 12 weeks L hip ROM Impairment Very limited L hip ROM Short Term Goal (STG) Pt will improve L hip AROM for all directions for 5 degrees STG Duration 6 weeks Shelter Goal (LTG) Pt will improve L hip AROM for all directions by 10 degrees to improve gait efficiency especially hip extension during preswing. LTG Duration 12 weeks L knee ROM Impairment limited L knee ROM Steam Generating Powerplant Mechanic Goal (LTG) 0-120 degrees of L knee to improve gait and functional motion such as sit to stand without using stagger stance. LTG Duration 12 weeks Progress Towards Goals Progress Towards Goals Slow Progress due to Medical Issues Assessment Summary Assessment Pt had a fall 2 weeks ago and landed on her LLE who had to reschedule her vein removal surgery. Her recent x-ray for both femur and tibia and vascular ultrasound are both unremarkable. However, Pt shows significant increased swelling at L knee today (2+ pitting edema) especially medial joint line. Her knee is warm to touch and medial joint line is painful to touch . Pt has decreased AROM as well. This PT is unable to rule out ligamentous/ muscular / meniscal injury d/t her significant pain and swelling. This session focused on reassessment and swelling management via manual therapy. Her knee flexion and swelling did get slightly better after . Will cont to follow up with pt's progress and assess her symptoms. If pt did not have further injury, pt will cont benefit from skilled therapy to improve her hip and knee ROM, balance, strength and stability in order to improve her functional mobility. Physical Therapy Plan Frequency and Duration Frequency of Treatment 2x/Week Duration of Treatment 8 weeks Plan of Care Start Date 06/16/20 Plan of Care End Date 08/15/20 Therapeutic Interventions Therapeutic Interventions Balance Training,Gait Training ,Home Exercise Program,Joint Mobilizations,Manual Therapy, Neuromuscular Re-education, Patient/Caregiver Education, Self-Care/Home Management,Soft Tissue Mobilization, Therapeutic Activities, Therapeutic Exercises Modalities Cold Pack/Ice Massage,Electric Stimulation,Hot Packs, Infrared Therapy Next Visit Focus/Plan Next Note Type Treatment Note Next Visit Plan reassess her symptoms check circumference ROM ex gait training Plan of Care Dates Plan of Care Start Date 06/16/20 Plan of Care End Date 08/15/20 Electronically Signed by: Kingsley Banuelos, PT 06/16/20 [id number] Please Sign and Return: I have reviewed this Plan of Care and certify that the skilled therapy services above are required to meet the patient?s needs. Physician Signature Date Printed Name and Credentials Clinical Instructor Signature Printed Name and Credentials
--- NOTE | 2020-06-19 13:05 | PT-OP ANOTE ---
Msg received that pt cancelled appt due to fall and was going to ER.
--- NOTE | 2020-08-11 10:57 | PT-OP ANOTE ---
attempted to cont pt via phone and left a vm. From last note 06/19, pt had a fall and went to ER.
--- NOTE | 2021-05-10 08:57 | PT.OPDS ---
Current Diagnoses Presence of unspecified artificial hip joint (06/16/20) Visit Care Team Role Provider Type Blayne Sims MD Primary Care Provider Physician Specialty: Internal Medicine Address: [address] [place] [address], [id number] Email: [email or web address] João Urena MD Attending Provider Physician Referring Provider Specialty: Orthopedic Surgery Address: [address] [place] [address], [id number] Email: [email or web address] Visit Number Visit Number 09/07 Discharge Summary PT-OP-T Assessment and Plan Start: 04/30/20 15:48 Freq: Status: Active Protocol: Document 05/10/21 08:55 (Rec: 05/10/21 08:57 [id number]) Physical Therapy Plan Discharge Physical Therapy Discharge Reasons No Longer Attending PT Discharge Comments Per EMR, pt has not been attending PT since 10 months who also had multiple falls. DC from PT today.
== END 2021-05-12 08:25 | disposition home or self-care (01) ==
LOC: PHYS 15:15
PROVIDERS: PCP Internal Medicine; Referring Provider Orthopaedic Surgery Adult Reconstructive Orthopaedic Surgery; Visit Provider Orthopaedic Surgery Adult Reconstructive Orthopaedic Surgery
DX: Z96.649 Presence of unspecified artificial hip joint (principal)
CPT/HCPCS: 97110; 97116; 97140; 97163; 97164; 97530

== ENCOUNTER → 2020-06-24 13:51 | Outpatient (CLI) | payer OTHER, SELFPAY ==
[2019-11-13 05:32] VITALS: BMI 20.2
[2020-04-28 13:45] VITALS: O2SAT 96
== END ==
PROVIDERS: PCP Internal Medicine; Referring Provider Internal Medicine; Visit Provider Family Medicine
DX: I87.2 Venous insufficiency (chronic) (peripheral) (principal); L97.821 Non-pressure chronic ulcer of other part of left lower leg limited to breakdown of skin
CPT/HCPCS: 29581

== ENCOUNTER → 2020-07-08 15:38 | Outpatient (CLI) | payer OTHER, SELFPAY ==
[2019-11-13 05:32] VITALS: BMI 20.2
[2020-04-28 13:45] VITALS: O2SAT 96
== END ==
PROVIDERS: PCP Internal Medicine; Referring Provider Internal Medicine; Visit Provider Family Medicine
DX: I87.2 Venous insufficiency (chronic) (peripheral) (principal); L97.821 Non-pressure chronic ulcer of other part of left lower leg limited to breakdown of skin
CPT/HCPCS: 15271; Q4132

== ENCOUNTER → 2020-07-14 13:37 | Outpatient (CLI) | payer OTHER, SELFPAY ==
[2019-11-13 05:32] VITALS: BMI 20.2
[2020-04-28 13:45] VITALS: O2SAT 96
== END ==
PROVIDERS: PCP Internal Medicine; Referring Provider Internal Medicine; Visit Provider Family Medicine
DX: I87.2 Venous insufficiency (chronic) (peripheral) (principal); L97.821 Non-pressure chronic ulcer of other part of left lower leg limited to breakdown of skin
CPT/HCPCS: 15271; 99213; Q4132

== ENCOUNTER → 2020-07-22 15:25 | Outpatient (CLI) | payer OTHER, SELFPAY ==
[2019-11-13 05:32] VITALS: BMI 20.2
[2020-04-28 13:45] VITALS: O2SAT 96
== END ==
PROVIDERS: PCP Internal Medicine; Referring Provider Internal Medicine; Visit Provider Family Medicine
DX: I87.2 Venous insufficiency (chronic) (peripheral) (principal); L97.821 Non-pressure chronic ulcer of other part of left lower leg limited to breakdown of skin
CPT/HCPCS: 97597

== ENCOUNTER → 2020-07-29 16:19 | Outpatient (CLI) | payer OTHER, SELFPAY ==
[2019-11-13 05:32] VITALS: BMI 20.2
[2020-04-28 13:45] VITALS: O2SAT 96
== END ==
PROVIDERS: PCP Internal Medicine; Referring Provider Internal Medicine; Visit Provider Family Medicine
DX: I87.2 Venous insufficiency (chronic) (peripheral) (principal); L97.821 Non-pressure chronic ulcer of other part of left lower leg limited to breakdown of skin
CPT/HCPCS: 99213

== ENCOUNTER → 2020-08-05 11:01 | Outpatient (CLI) | payer OTHER, SELFPAY ==
[2019-11-13 05:32] VITALS: BMI 20.2
[2020-04-28 13:45] VITALS: O2SAT 96
== END ==
PROVIDERS: PCP Internal Medicine; Referring Provider Internal Medicine; Visit Provider Family Medicine
DX: I87.2 Venous insufficiency (chronic) (peripheral) (principal); L97.821 Non-pressure chronic ulcer of other part of left lower leg limited to breakdown of skin
CPT/HCPCS: 15271; Q4137

== ENCOUNTER → 2020-08-12 14:51 | Outpatient (CLI) | payer OTHER, SELFPAY ==
[2019-11-13 05:32] VITALS: BMI 20.2
[2020-04-28 13:45] VITALS: O2SAT 96
== END ==
PROVIDERS: PCP Internal Medicine; Referring Provider Internal Medicine; Visit Provider Family Medicine
DX: I87.2 Venous insufficiency (chronic) (peripheral) (principal); L97.821 Non-pressure chronic ulcer of other part of left lower leg limited to breakdown of skin
CPT/HCPCS: 15271; 87070; 87075; 87077; 87186; 87205; Q4137

== ENCOUNTER → 2020-08-19 16:16 | Outpatient (CLI) | payer OTHER, SELFPAY ==
[2019-11-13 05:32] VITALS: BMI 20.2
[2020-04-28 13:45] VITALS: O2SAT 96
== END ==
PROVIDERS: PCP Internal Medicine; Referring Provider Internal Medicine; Visit Provider Family Medicine
DX: I87.2 Venous insufficiency (chronic) (peripheral) (principal); L97.821 Non-pressure chronic ulcer of other part of left lower leg limited to breakdown of skin
CPT/HCPCS: 99212; 99213

== ENCOUNTER → 2020-08-26 11:42 | Outpatient (CLI) | payer OTHER, SELFPAY ==
[2019-11-13 05:32] VITALS: BMI 20.2
[2020-04-28 13:45] VITALS: O2SAT 96
== END ==
PROVIDERS: PCP Internal Medicine; Referring Provider Internal Medicine; Visit Provider Family Medicine
DX: I87.2 Venous insufficiency (chronic) (peripheral) (principal); M79.662 Pain in left lower leg; L95.0 Livedoid vasculitis
CPT/HCPCS: 29581; 99213

== ENCOUNTER → 2020-09-04 12:10 | Outpatient (CLI) | payer OTHER, SELFPAY ==
[2019-11-13 05:32] VITALS: BMI 20.2
[2020-04-28 13:45] VITALS: O2SAT 96
== END ==
PROVIDERS: PCP Internal Medicine; Referring Provider Internal Medicine; Visit Provider Family Medicine
DX: I87.2 Venous insufficiency (chronic) (peripheral) (principal); L97.821 Non-pressure chronic ulcer of other part of left lower leg limited to breakdown of skin
CPT/HCPCS: 99213

== ENCOUNTER → 2020-09-22 17:17 | Outpatient (CLI) | payer OTHER, SELFPAY ==
[2019-11-13 05:32] VITALS: BMI 20.2
[2020-04-28 13:45] VITALS: O2SAT 96
[2020-09-22 18:21] LABS: Add Manual Diff / Slide Review NO; Basophils Absolute Auto 100 /uL (0-100); Basophils Percent Auto 1.1 % (0-2); Eosinophils Absolute Auto 100 /uL (0-450); Eosinophils Percent Auto 2.1 % (2-4); Hematocrit 32.8 % (36-46); Hemoglobin 10.8 g/dL (12.0-16.0); Lymphocytes Absolute Auto 1000 /uL (1100-4500); Lymphocytes Percent Auto 15.6 % (25-40); Mean Corpuscular HGB Conc 32.8 % (30-36); Mean Corpuscular Hemoglobin 30.5 PG (26-34); Mean Corpuscular Volume 93.1 fL (80-100); Monocytes Absolute Auto 500 /uL (0-900); Monocytes Percent Auto 7.2 % (3-14); Neutrophils Absolute Auto 5000 /uL (1500-7000); Platelet Count 141 X10^3/uL (150-400); Red Blood Cell Count 3.52 X10^6/uL (4.0-5.2); Red Cell Distribution Width 15.8 % (11.6-14.8); White Blood Cell Count 6.7 X10^3/uL (4.5-11.0)
[2020-09-22 18:29] LABS: Alanine Aminotransferase 41 IU/L (<35); Albumin 4.1 g/dL (3.5-5.0); Albumin Globulin Ratio 1.4 (1.0-2.8); Alkaline Phosphatase 99 U/L (38-126); Aspartate Aminotransferase 50 IU/L (14-36); Bilirubin Total 0.4 mg/dL (0.2-1.3); Blood Urea Nitrogen 33 mg/dL (7-17); Calcium 9.4 mg/dL (8.4-10.2); Carbon Dioxide 26 mmol/L (22-32); Chloride 108 mmol/L (98-107); Cholesterol 162 mg/dL (140-199); Estimated Glomerular Filt Rate 43.7 mL/min (>60); Glucose 97 mg/dL (80-110); HDL Cholesterol 89 mg/dL (40-60); HEMOLYSIS < 15 (0-50); LDL Cholesterol Calculated 52 mg/dL (<100); Sodium 137 mmol/L (137-145); Total Protein 7.1 g/dL (6.3-8.2); Triglycerides 104 mg/dL (35-150)
[2020-09-22 19:03] LABS: TSH w/ Reflex to FT4 3.26 uIU/mL (0.47-4.68)
--- NOTE | 2020-11-02 16:12 | PC.NURSE ---
pt called today to let us know she will not be receiving her reclast due to an upcoming dental procedure.
== END ==
PROVIDERS: PCP Internal Medicine; Referring Provider Internal Medicine; Visit Provider Internal Medicine
DX: R60.9 Edema, unspecified (principal); E78.2 Mixed hyperlipidemia
CPT/HCPCS: 36415; 80053; 80061; 84443; 85025

== ENCOUNTER → 2020-11-03 19:16 | Outpatient (ROUT) | payer OTHER, SELFPAY ==
[2019-11-13 05:32] VITALS: BMI 20.2
[2020-04-28 13:45] VITALS: O2SAT 96
== END ==
PROVIDERS: PCP Internal Medicine; Visit Provider Internal Medicine
DX: R39.9 Unspecified symptoms and signs involving the genitourinary system (principal)
CPT/HCPCS: 87077; 87086; 87186

== ENCOUNTER → 2021-03-03 18:56 | Outpatient (ROUT) | payer OTHER, SELFPAY ==
[2019-11-13 05:32] VITALS: BMI 20.2
[2020-04-28 13:45] VITALS: O2SAT 96
[2021-03-03 19:31] LABS: Add Manual Diff / Slide Review NO; Basophils Absolute Auto 100 /uL (0-100); Basophils Percent Auto 1.1 % (0-2); Eosinophils Absolute Auto 100 /uL (0-450); Eosinophils Percent Auto 1.5 % (2-4); Hematocrit 32.2 % (36-46); Hemoglobin 10.7 g/dL (12.0-16.0); Lymphocytes Absolute Auto 700 /uL (1100-4500); Lymphocytes Percent Auto 13.3 % (25-40); Mean Corpuscular HGB Conc 33.1 % (30-36); Mean Corpuscular Hemoglobin 30.3 PG (26-34); Mean Corpuscular Volume 91.4 fL (80-100); Monocytes Absolute Auto 400 /uL (0-900); Monocytes Percent Auto 6.7 % (3-14); Neutrophils Absolute Auto 4300 /uL (1500-7000); Neutrophils Percent Auto 77.4 % (50-75); Platelet Count 144 X10^3/uL (150-400); Red Blood Cell Count 3.52 X10^6/uL (4.0-5.2); Red Cell Distribution Width 14.4 % (11.6-14.8); White Blood Cell Count 5.6 X10^3/uL (4.5-11.0)
[2021-03-03 19:42] LABS: Alanine Aminotransferase 27 IU/L (<35); Albumin 3.7 g/dL (3.5-5.0); Albumin Globulin Ratio 1.3 (1.0-2.8); Alkaline Phosphatase 61 U/L (38-126); Aspartate Aminotransferase 46 IU/L (14-36); BUN Creatinine Ratio 35.2 (6-22); Bilirubin Total 0.3 mg/dL (0.2-1.3); Blood Urea Nitrogen 32 mg/dL (7-17); Calcium 9.5 mg/dL (8.4-10.2); Carbon Dioxide 23 mmol/L (22-32); Chloride 104 mmol/L (98-107); Cholesterol 155 mg/dL (140-199); Estimated Glomerular Filt Rate 58.9 mL/min (>60); Globulin 2.8 g/dL (1.7-4.1); Glucose 92 mg/dL (80-110); HDL Cholesterol 92 mg/dL (40-60); HEMOLYSIS < 15 (0-50); LDL Cholesterol Calculated 56 mg/dL (<100); Sodium 135 mmol/L (137-145); Total Protein 6.5 g/dL (6.3-8.2); Triglycerides 36 mg/dL (35-150)
[2021-03-03 20:42] LABS: Hep C Virus Ab w/Reflex Quant NEGATIVE s/c (NEGATIVE)
== END ==
PROVIDERS: PCP Internal Medicine; Visit Provider Internal Medicine
DX: E78.2 Mixed hyperlipidemia (principal); I10 Essential (primary) hypertension; E03.9 Hypothyroidism, unspecified
CPT/HCPCS: 80053; 80061; 84443; 85025; 86803

== ENCOUNTER 2021-03-22 13:30 | Emergency (ER) | payer OTHER, SELFPAY ==
[2019-11-13 05:32] VITALS: BMI 20.2
[2020-04-28 13:45] VITALS: O2SAT 96
[2021-03-22 13:34] VITALS: BP 170/74; PULSE 76; RESP 20; TEMP 37.6; O2SAT 99
--- NOTE | 2021-03-22 13:37 | DI.CT.S_ITS ---
PROCEDURE: CT HEAD/BRAIN WO CON INDICATIONS: fall, not on thinners TECHNIQUE: Noncontrast 4.5 mm thick angled axial sections acquired from the foramen magnum to the vertex, with coronal and sagittal reformats. For radiation dose reduction, the following was used: automated exposure control, adjustment of mA and/or kV according to patient size. COMPARISON: [facility], CT, CT CERVICAL SPINE WO CON, 03/22/2021, 13:41. (Prior head CT examinations are not available for review from the archive at the time of this dictation.) FINDINGS: Image quality: Excellent. CSF spaces: Basal cisterns are patent. No extra-axial fluid collections. The ventricles are symmetric in size and shape. Brain: No intracranial bleeds or masses. There is cerebral volume loss for age, with resultant ventricular and sulcal prominence. There are periventricular and deep white matter chronic small vessel ischemic changes. There is intracranial internal carotid artery atherosclerosis. Skull and face: There is a focal hematoma involving the left posterior temporal region, as on series 2, image 16. No underlying calvarial fracture can be seen. Calvarium and visualized facial bones appear intact, without suspicious lesions. Sinuses: Visualized sinuses and mastoids are clear. IMPRESSION: No acute intracranial hemorrhage is seen. No acute intracranial process is seen. A left posterior scalp hematoma is seen, without an associated fracture. Dictated by: Micah Suresh M.D. on 03/22/2021 at 13:07 Approved by: Micah Suresh M.D. on 03/22/2021 at 13:08
--- NOTE | 2021-03-22 13:38 | DI.CT.S_ITS ---
PROCEDURE: CT CERVICAL SPINE WO CON INDICATIONS: fall, not on thinners TECHNIQUE: Noncontrast 3 mm thick sections acquired from the skull base to the T4 level. Sagittal and coronal reformats were then constructed. For radiation dose reduction, the following was used: automated exposure control, adjustment of mA and/or kV according to patient size. COMPARISON: [facility], CT, CT HEAD/BRAIN WO CON, 03/22/2021, 13:41. (Prior relevant studies are not available for review from the archive at the time of this dictation.) FINDINGS: Image quality: Excellent. Bones: No fractures or dislocations. Visualized superior ribs are intact. Reversal of the normal cervical lordosis is seen, with apex at the C5 level. There is mild anterolisthesis seen at C3-C4 and C4-C5, with mild retrolisthesis at C5-C6. There is moderate to severe disc space narrowing seen at C4-C5, C5-C6, and C6-C7. Endplate irregularity and sclerosis are seen, which are worst at the C5-C6 level. Posteriorly directed endplate osteophytes are seen at C5-C6. Focal degenerative change is seen involving the C1-C2 interface anteriorly. Soft tissues: Prevertebral soft tissues are normal in thickness. No paravertebral hematomas. No apical pneumothoraces. Atherosclerotic calcification is noted. IMPRESSION: No acute fractures are seen. Degenerative changes are seen, which are worst at the C5-C6 level. Dictated by: Micah Suresh M.D. on 03/22/2021 at 13:00 Approved by: Micah Suresh M.D. on 03/22/2021 at 13:06
--- NOTE | 2021-03-22 14:25 | ED_ITS ---
HPI - General Adult General Chief complaint: Trauma Stated complaint: Fall Time Seen by Provider: 03/22/21 14:08 Source: patient Mode of arrival: Wheelchair Limitations: no limitations History of Present Illness HPI narrative: Patient is an 86-year-old female here for evaluation approximately 24 hours after she sustained a fall at home. He was reported by the patient's daughter that she fell asleep while standing up. This apparently is not unusual for her. She did hit the back of her head. She is not on anticoagulation. She did sustain a cut to the back of her head however it is stop bleeding. She has not washed her hair since then because of the bleeding and she did not want to start it again. She was having neck pain. Cervical collar was placed in triage. She is also complaining of left shoulder pain. She has no other injuries reported from the event. Is here because of the discomfort that she is having. Related Data Home Medications Medication Instructions Recorded Confirmed Restasis 1 drp OPHTHALMIC (EYE) DIRECTED 05/08/12 11/14/19 #0 aspirin 81 mg PO DAILY #0 05/08/12 11/13/19 ascorbic acid (vitamin C) 500 mg PO QDAY #0 08/14/17 11/13/19 calcium carbonate [Tums] 500 mg PO PRN PRN #0 08/14/17 11/13/19 cyanocobalamin (vitamin B-12) 5,000 mcg SUBLINGUAL QDAY #0 08/14/17 11/13/19 [Vitamin B-12] multivitamin [Multiple Vitamins] 1 tab PO QDAY #0 08/14/17 11/13/19 sennosides [senna] 8.6 mg PO PRN #0 02/12/18 11/13/19 levothyroxine 112 mcg capsule 112 mcg PO DAILY 05/28/18 11/13/19 pramipexole 0.75 mg tablet 0.75 mg PO TID 05/28/18 11/14/19 Respironics Dreamstation CPAP #1 ea 04/08/19 11/14/19 epinastine 1 drp OPHTHALMIC (EYE) BID 11/13/19 11/13/19 losartan 25 mg PO DAILY 11/13/19 11/13/19 Allergies Allergy/AdvReac Type Severity Reaction Status Date / Time metoclopramide [From REGLAN] Allergy Severe UNCONTROLBLE Verified 05/30/20 15:34 LIMB MOVEMENTS Penicillins [PENICILLINS] Allergy Unknown RASH Verified 05/30/20 15:34 Sulfa (Sulfonamide Allergy Verified 03/22/21 14:51 Antibiotics) Review of Systems Constitutional Constitutional: Denies fatigue, Denies fever(s), Reports frequent falls and Denies headache(s) Eyes Eyes: Denies change in vision ENT Ears, Nose, Mouth, and Throat: Denies vertigo, Denies headache(s), Reports disequilibrium and Denies sore throat Cardiovascular Cardiovascular: Denies chest pain, Denies rapid heart rate, Denies irregular heart rhythm and Denies dyspnea Respiratory Respiratory: Denies cough and Denies dyspnea Gastrointestinal Gastrointestinal: Denies abdominal pain, Denies nausea and Denies vomiting Genitourinary Genitourinary: Denies dysuria Genitourinary: Denies dysuria Musculoskeletal Comments: Left shoulder pain, neck pain, back pain Integumentary/Breasts Comments: Cut to back of head Neurologic Neurologic: Denies confusion, Denies vertigo, Reports frequent falls, Denies headache(s) and Reports disequilibrium Psychiatric Psychiatric: Denies confusion Endocrine Endocrine: Denies fatigue Hematologic/Lymphatic On Anticoagulants: No Allergic/Immunologic Allergic/Immunologic: Denies urticaria Patient History Medical History Hyperlipidemia Hypertension, essential Hypothyroid Left femoral shaft fracture Multiple sclerosis Surgical History H/O cataract removal with insertion of prosthetic lens H/O esophageal hernia repair Family History Father Asthma Mother Colon cancer Social History household members: children Smoking Status: Former smoker alcohol intake: current Smoking Status: Former smoker alcohol intake frequency: holidays/special occasions only Substance Use Type: does not use Exam Initial Vital Signs Initial Vital Signs: Vital Signs Temperature 99.7 F H 03/22/21 13:34 Pulse Rate 76 03/22/21 13:34 Respiratory Rate 20 03/22/21 13:34 Blood Pressure 170/74 H 03/22/21 13:34 Pulse Oximetry 99 03/22/21 13:34 Const General: cooperative, comfortable and well developed Limitations: mental status not altered HENMT Head: abrasion and contusion Nose: external nose normal Face and sinus: normal facial exam Eyes General: appearance normal, both eyes and all related structures Chest Chest: No tenderness Resp Effort & Inspection: normal respiratory effort Auscultation: clear to auscultation bilaterally Cardio Rate: regular rate Rhythm: regular rhythm GI Inspection: non-distended Palpation: soft Back/Spine/Pelvis Cervical Spine: collar present and cervical spinal tenderness Thoracic/Lumbar Spine: No thoracic spinal tenderness and No lumbar spinal tenderness Skin Other: Patient with a 1 cm abrasion to the left occipital portion of her scalp. There is no active bleeding. No depressed skull fracture felt underneath. Neuro General: patient alert, patient awake and patient oriented x3 Cognition: normal cognition Speech: speech normal Extrem Other: Patient with tenderness to palpation throughout her left shoulder specifically with movement. Her left elbow and left wrist unremarkable. Right upper extremity bilateral lower extremities unremarkable. Hips unremarkable. Psych Appearance: grossly normal and well kempt Scores GCS [place] coma scale eye opening: Spontaneous [place] coma scale verbal response: Orientated [place] coma scale motor response: Obey commands [place] coma scale total score: 15 Nexus Score for C-Spine Focal Neurologic deficit present: No Midline spinal tenderness present: Yes Altered level of conciousness present: No Intoxication present: No Distracting Injury Present: No Nexus Criteria for C-spine: 1 Course Orders Ordered: Discontinued Medications Acetaminophen (Acetaminophen 325 Mg Tablet) 650 mg PO NOW ONE Stop: 03/22/21 15:08 Last Admin: 03/22/21 15:16 Dose: 650 mg Documented by: AYDE Ibuprofen (Ibuprofen 400 Mg Tablet) 400 mg PO NOW ONE Stop: 03/22/21 15:08 Last Admin: 03/22/21 15:16 Dose: 400 mg Documented by: AYDE Vital Signs Vital signs: Vital Signs - 8 hr 03/22/21 13:34 03/22/21 15:29 Temperature 99.7 F H 98.6 F Pulse Rate 76 75 Respiratory Rate 20 16 Blood Pressure 170/74 H 169/73 H Pulse Oximetry 99 96 Medical Decision Making Imaging Data CT scan - head: Radiologist's Impression: [address] [id number] Scan ReportSigned Patient: Dorothy Jacob TMR#: [id number]: 1935cct:[id number]/Sex: 86 / FDate of Service: 03/22/21Loc: EDAccession Number: [id number] Procedure: CT head/brain wo con Ordering Provider: Darian Gandhi D.O. PROCEDURE: CT HEAD/BRAIN WO CON INDICATIONS: fall, not on thinners TECHNIQUE: Noncontrast 4.5 mm thick angled axial sections acquired from the foramen magnum to the vertex, with coronal and sagittal reformats. For radiation dose reduction, the following was used: automated exposure control, adjustment of mA and/or kV according to patient size. COMPARISON: [facility], CT, CT CERVICAL SPINE WO CON, 03/22/2021, 13:41. (Prior head CT examinations are not available for review from the archive at the time of this dictation.) FINDINGS: Image quality: Excellent. CSF spaces: Basal cisterns are patent. No extra-axial fluid collections. The ventricles are symmetric in size and shape. Brain: No intracranial bleeds or masses. There is cerebral volume loss for age, with resultant ventricular and sulcal prominence. There are periventricular and deep white matter chronic small vessel ischemic changes. There is intracranial internal carotid artery atherosclerosis. Skull and face: There is a focal hematoma involving the left posterior temporal region, as on series 2, image 16. No underlying calvarial fracture can be seen. Calvarium and visualized facial bones appear intact, without suspicious lesions. Sinuses: Visualized sinuses and mastoids are clear. IMPRESSION: No acute intracranial hemorrhage is seen. No acute intracranial process is seen. A left posterior scalp hematoma is seen, without an associated fracture. Dictated by: Micah Suresh M.D. on 03/22/2021 at 13:07 Approved by: Micah Suresh M.D. on 03/22/2021 at 13:08 CT - cervical spine: Radiologist's Impression: [address] [id number] Scan ReportSigned Patient: Dorothy Jacob TMR#: [id number]: 1935cct:[id number]/Sex: 86 / FDate of Service: 03/22/21Loc: EDAccession Number: [id number] Procedure: CT cervical spine wo con Ordering Provider: Darian Gandhi D.O. PROCEDURE: CT CERVICAL SPINE WO CON INDICATIONS: fall, not on thinners TECHNIQUE: Noncontrast 3 mm thick sections acquired from the skull base to the T4 level. Sagittal and coronal reformats were then constructed. For radiation dose reduction, the following was used: automated exposure control, adjustment of mA and/or kV according to patient size. COMPARISON: [facility], CT, CT HEAD/BRAIN WO CON, 03/22/2021, 13:41. (Prior relevant studies are not available for review from the archive at the time of this dictation.) FINDINGS: Image quality: Excellent. Bones: No fractures or dislocations. Visualized superior ribs are intact. Reversal of the normal cervical lordosis is seen, with apex at the C5 level. There is mild anterolisthesis seen at C3-C4 and C4-C5, with mild retrolisthesis at C5-C6. There is moderate to severe disc space narrowing seen at C4-C5, C5-C6, and C6-C7. Endplate irregularity and sclerosis are seen, which are worst at the C5-C6 level. Posteriorly directed endplate osteophytes are seen at C5-C6. Focal degenerative change is seen involving the C1-C2 interface anteriorly. Soft tissues: Prevertebral soft tissues are normal in thickness. No paravertebral hematomas. No apical pneumothoraces. Atherosclerotic calcification is noted. IMPRESSION: No acute fractures are seen. Degenerative changes are seen, which are worst at the C5-C6 level. Dictated by: Micah Suresh M.D. on 03/22/2021 at 13:00 Approved by: Micah Suresh M.D. on 03/22/2021 at 13:06 Extremity x-ray #1: Radiologist's Impression: [address] [id number] ReportSigned Patient: Dorothy Jacob TMR#: [id number]: 1935cct:[id number]/Sex: 86 / FDate of Service: 03/22/21Loc: EDAccession Number: [id number] Procedure: XR shoulder LT min 2V Ordering Provider: Darian Gandhi D.O. PROCEDURE: XR SHOULDER LT MIN 2V INDICATIONS: pain after fall TECHNIQUE: 2 views of the shoulder were acquired. COMPARISON: None. 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 Scattered degenerative subchondral sclerosis and spurring. Possible cystic change at the greater tuberosity, chronic. Soft tissues: No suspicious soft tissue calcifications. IMPRESSION: No acute fracture although exam diagnostic sensitivity suboptimal secondary to advanced arthritic changes. Dictated by: Jayden Chan M.D. on 03/22/2021 at 14:51 Approved by: Jayden Chan M.D. on 03/22/2021 at 14:53 [facility] Narrative Medical decision making narrative: Her head CT and cervical spine CT are unremarkable. The cervical collar was removed after these resulted. The abrasion on the back of her head needs no intervention. Is not actively bleeding. We did discuss that she could wash her hair but she would be careful in this area has a potentially could lose again. Her left shoulder shows no signs of dislocation or fracture. She reports no other injury from the fall. She has no other injuries found on the exam. Patient has multiple times for pain medication but given her age and other issues I feel that we should hold on this. She was given return precautions and follow-up instructions. She expressed understanding and agreement. Discharge Plan Departure Patient Disposition: Home Clinical Impression: Fall, Contusion of scalp, Contusion of left shoulder, Neck strain Instructions: Contusion, How to Prevent Falls Activity Restrictions/Additional Instructions: Continue all of your medications as directed. Your neck pain should improve over the next several days although I do recommend that you continue to take Tylenol/ibuprofen. You can also use heat/ice/massage or warm showers. Contact your primary provider for follow-up. Prescriptions: No Action Restasis 0.05 % Dropperette 1 drp OPHTHALMIC (EYE) DIRECTED Qty: 0 RF: 0 aspirin 81 mg Tablet,Delayed Release (Dr/Ec) 81 mg PO DAILY Qty: 0 RF: 0 multivitamin [Multiple Vitamins] 1 EACH tablet 1 tab PO QDAY Qty: 0 RF: 0 ascorbic acid (vitamin C) 500 MG tablet 500 mg PO QDAY Qty: 0 RF: 0 calcium carbonate [Tums] 500 MG tablet,chewable 500 mg PO PRN PRN (Reason: Acid Reflux) Qty: 0 RF: 0 cyanocobalamin (vitamin B-12) [Vitamin B-12] 5,000 MCG tablet, sublingual 5,000 mcg Sublingual QDAY Qty: 0 RF: 0 sennosides [senna] 8.6 MG tablet 8.6 mg PO PRN Qty: 0 RF: 0 losartan 25 mg Tablet 25 mg PO DAILY RF: 0 epinastine 0.05 % Drops 1 drp OPHTHALMIC (EYE) BID RF: 0 levothyroxine 112 mcg capsule 112 mcg PO DAILY RF: 0 pramipexole 0.75 mg tablet 0.75 mg PO TID RF: 0 (DME) Respironics Dreamstation CPAP Qty: 1 RF: 0 Referrals: Blayne Sims MD [Primary Care Provider] -
[2021-03-22] MEDS: ACETAMINOPHEN 325 MG TABLET 650 MG PO (15:16)
[2021-03-22] MEDS: IBUPROFEN 400 MG TABLET PO (15:16)
[2021-03-22 15:29] VITALS: BP 169/73; PULSE 75; RESP 16; TEMP 37; O2SAT 96
== END 2021-03-22 15:30 | disposition home or self-care (01) ==
PROVIDERS: Emergency Provider Emergency Medicine; PCP Internal Medicine
DX: S00.03XA Contusion of scalp, initial encounter (principal); S40.012A Contusion of left shoulder, initial encounter; S16.1XXA Strain of muscle, fascia and tendon at neck level, initial encounter; W19.XXXA Unspecified fall, initial encounter
CPT/HCPCS: 70450; 72125; 73030; 99284

== ENCOUNTER → 2021-08-23 10:19 | Outpatient (CLI) | payer OTHER, SELFPAY ==
[2019-11-13 05:32] VITALS: BMI 20.2
== END ==
PROVIDERS: PCP Internal Medicine; Referring Provider Internal Medicine; Visit Provider Family Medicine
DX: I87.2 Venous insufficiency (chronic) (peripheral) (principal); L97.321 Non-pressure chronic ulcer of left ankle limited to breakdown of skin; L97.821 Non-pressure chronic ulcer of other part of left lower leg limited to breakdown of skin; L08.9 Local infection of the skin and subcutaneous tissue, unspecified; T14.8XXA Other injury of unspecified body region, initial encounter; L95.0 Livedoid vasculitis
CPT/HCPCS: 87070; 87077; 87147; 87186; 87205; 97597; 99214

== ENCOUNTER → 2021-08-31 13:16 | Outpatient (CLI) | payer OTHER, SELFPAY ==
[2019-11-13 05:32] VITALS: BMI 20.2
== END ==
PROVIDERS: PCP Internal Medicine; Referring Provider Internal Medicine; Visit Provider Family Medicine
DX: I87.2 Venous insufficiency (chronic) (peripheral) (principal); L97.821 Non-pressure chronic ulcer of other part of left lower leg limited to breakdown of skin; L97.321 Non-pressure chronic ulcer of left ankle limited to breakdown of skin
CPT/HCPCS: 99214

== ENCOUNTER → 2021-09-07 10:53 | Outpatient (CLI) | payer OTHER, SELFPAY ==
[2019-11-13 05:32] VITALS: BMI 20.2
== END ==
PROVIDERS: PCP Internal Medicine; Referring Provider Internal Medicine; Visit Provider Family Medicine
DX: I87.2 Venous insufficiency (chronic) (peripheral) (principal); L97.321 Non-pressure chronic ulcer of left ankle limited to breakdown of skin; L97.311 Non-pressure chronic ulcer of right ankle limited to breakdown of skin; L95.0 Livedoid vasculitis; I73.9 Peripheral vascular disease, unspecified
CPT/HCPCS: 93922; 97597; 99213

== ENCOUNTER → 2021-09-09 14:42 | Outpatient (CLI) | payer OTHER, SELFPAY ==
[2019-11-13 05:32] VITALS: BMI 20.2
== END ==
PROVIDERS: PCP Internal Medicine; Referring Provider Internal Medicine; Visit Provider Family Medicine
DX: I87.2 Venous insufficiency (chronic) (peripheral) (principal); L97.321 Non-pressure chronic ulcer of left ankle limited to breakdown of skin; L97.311 Non-pressure chronic ulcer of right ankle limited to breakdown of skin
CPT/HCPCS: 29581

== ENCOUNTER → 2021-09-14 13:13 | Outpatient (CLI) | payer OTHER, SELFPAY ==
[2019-11-13 05:32] VITALS: BMI 20.2
== END ==
PROVIDERS: PCP Internal Medicine; Referring Provider Internal Medicine; Visit Provider Family Medicine
DX: I87.2 Venous insufficiency (chronic) (peripheral) (principal); L97.321 Non-pressure chronic ulcer of left ankle limited to breakdown of skin; L97.311 Non-pressure chronic ulcer of right ankle limited to breakdown of skin; L97.521 Non-pressure chronic ulcer of other part of left foot limited to breakdown of skin; L95.0 Livedoid vasculitis; L08.9 Local infection of the skin and subcutaneous tissue, unspecified
CPT/HCPCS: 87070; 87075; 87077; 87186; 87205; 97597; 99214

== ENCOUNTER → 2021-09-23 10:07 | Outpatient (CLI) | payer OTHER, SELFPAY ==
[2019-11-13 05:32] VITALS: BMI 20.2
== END ==
PROVIDERS: PCP Internal Medicine; Referring Provider Internal Medicine; Visit Provider Family Medicine
DX: I87.2 Venous insufficiency (chronic) (peripheral) (principal); L97.321 Non-pressure chronic ulcer of left ankle limited to breakdown of skin; L97.311 Non-pressure chronic ulcer of right ankle limited to breakdown of skin; L97.521 Non-pressure chronic ulcer of other part of left foot limited to breakdown of skin; L95.0 Livedoid vasculitis; I73.9 Peripheral vascular disease, unspecified
CPT/HCPCS: 97597; 99213

== ENCOUNTER 2021-09-29 13:30 | Observation (INO) | payer OTHER, SELFPAY ==
[2019-11-13 05:32] VITALS: BMI 20.2
[2021-09-29] VITALS (15 sets, daily range): BP systolic 118–204; BP diastolic 47–84; PULSE 55–69; RESP 10–31; TEMP 36.6–37; O2SAT 96–100; BMI 19.7
--- NOTE | 2021-09-29 13:47 | DI.CT.S_ITS ---
PROCEDURE: CT CERVICAL SPINE WO CON INDICATIONS: neck pain sp fall TECHNIQUE: Noncontrast 3 mm thick sections acquired from the skull base to the T4 level. Sagittal and coronal reformats were then constructed. For radiation dose reduction, the following was used: automated exposure control, adjustment of mA and/or kV according to patient size. COMPARISON: [facility], CT, CT CERVICAL SPINE WO CON, 03/22/2021, 13:41. [facility], CT, CT HEAD/BRAIN WO CON, 09/29/2021, 13:55. [facility], CT, C-SPINE WITHOUT CONTRAST, 05/05/2017, 16:26. FINDINGS: Image quality: Excellent. Bones: T4 anterior wedge deformity can be seen, with 40% loss of height. No posterior displacement of fracture fragments can be seen. This fracture is new compared to the 04/18/2021 examination. No additional acute fractures are seen. Visualized superior ribs are intact. Cervical spine degenerative changes are seen, with moderate to severe disc space narrowing at C4-C5, C5-C6, and C6-C7. Mild retrolisthesis is seen at C5-C6. Focal degenerative change is seen involving the C1-C2 interface anteriorly. Milder degenerative changes are seen elsewhere. Soft tissues: Prevertebral soft tissues are normal in thickness. No paravertebral hematomas. No apical pneumothoraces. Atherosclerotic calcification is noted. IMPRESSION: New T4 anterior wedge deformity, with 40% loss of height anteriorly. Advanced lower cervical spine degenerative changes are seen, as before. Dictated by: Micah Suresh M.D. on 09/29/2021 at 13:19 Approved by: Micah Suresh M.D. on 09/29/2021 at 13:22
--- NOTE | 2021-09-29 13:47 | DI.RAD.S_ITS ---
PROCEDURE: XR RIBS RT MIN 3V W CXR 1V INDICATIONS: pain sp fall TECHNIQUE: 2 views of the right ribs were acquired, along with a single view chest. COMPARISON: None. FINDINGS: Surgical changes and devices: None. Bones and chest wall: There are lateral right 9th and 10th rib fractures and a posterior right 11th rib fracture, which are of uncertain chronicity. No suspicious bony lesions. Overlying soft tissues appear unremarkable. Lungs and pleura: No pleural effusions or pneumothorax. Lungs appear clear. Mediastinum: Mediastinal contours appear normal. Mild cardiomegaly. IMPRESSION: Fractures of the 9th, 10th, and 11th right ribs, of uncertain chronicity. No evidence of pneumothorax. Dictated by: Saumel Mtz M.D. on 09/29/2021 at 14:32 Approved by: Samuel Mtz M.D. on 09/29/2021 at 14:33
--- NOTE | 2021-09-29 13:47 | DI.CT.S_ITS ---
PROCEDURE: CT HEAD/BRAIN WO CON INDICATIONS: glf hit head TECHNIQUE: Noncontrast 4.5 mm thick angled axial sections acquired from the foramen magnum to the vertex, with coronal and sagittal reformats. For radiation dose reduction, the following was used: automated exposure control, adjustment of mA and/or kV according to patient size. COMPARISON: [facility], CT, HEAD WITHOUT CONTRAST, 06/10/2008, 20:01. [facility], CT, HEAD WITHOUT CONTRAST, 05/05/2017, 15:48. [facility], CT, HEAD WITHOUT CONTRAST, 02/12/2018, 13:15. [facility], CT, CT CERVICAL SPINE WO CON, 09/29/2021, 13:55. [facility], CT, CT HEAD/BRAIN WO CON, 03/22/2021, 13:41. FINDINGS: Image quality: A small osteoma can be seen along the inner table of the left frontal bone, as on series 3 images 26 and 27. CSF spaces: Basal cisterns are patent. No extra-axial fluid collections. The ventricles are symmetric in size and shape. Brain: No intracranial bleeds or masses. There is cerebral volume loss for age, with resultant ventricular and sulcal prominence. There are periventricular and deep white matter chronic small vessel ischemic changes. There is intracranial internal carotid artery atherosclerosis. Skull and face: Calvarium and visualized facial bones appear intact, without suspicious lesions. Sinuses: Visualized sinuses and mastoids are clear. IMPRESSION: No acute intracranial hemorrhage is seen. No displaced calvarial fracture can be seen. Note is made of age-appropriate brain parenchymal volume loss and chronic small vessel ischemic changes. Dictated by: Micah Suresh M.D. on 09/29/2021 at 13:16 Approved by: Micah Suresh M.D. on 09/29/2021 at 13:18
--- NOTE | 2021-09-29 13:55 | ED_ITS ---
HPI - Fall <Carrie Crain LAMP ASSEMBLER-BC - Last Filed: 09/29/21 18:54> General Chief Complaint: Trauma Stated Complaint: GLF 2 nights ago Time Seen by Provider: 09/29/21 13:35 Source: patient Mode of arrival: EMS Limitations: no limitations History of Present Illness HPI Narrative: The patient is an 86-year-old female former smoker with history of multiple sclerosis who presents 2 days after ground level fall with a chief complaint of right-sided pain. She states she was in her bathroom on Monday night, slipped when she was reaching for her walker. This is not unusual for her as she has a history of multiple falls related to multiple sclerosis. She states she fell back, hit her right chest wall on something and then hit her head on the floor. She denies any loss of consciousness, but states that she ?scooted around? for a while. She is not sure exactly how long she was on the ground for. She has not used anything for pain since she fell. She does not use any blood thinners. She states she has some overall aches and pains. Denies any chest pain or shortness of breath, does complain of neck pain and ?neck clicking. Subsequently she was placed in a cervical collar Related Data Home Medications Medication Instructions Recorded Confirmed aspirin 81 mg tablet,delayed 81 mg PO DAILY #0 05/08/12 11/13/19 release cyclosporine 0.05 % eye drops in a 1 drp OPHTHALMIC (EYE) DIRECTED 05/08/12 11/14/19 dropperette (Restasis) #0 ascorbic acid (vitamin C) 500 mg 500 mg PO QDAY #0 08/14/17 11/13/19 tablet calcium carbonate 200 mg calcium 500 mg PO PRN PRN #0 08/14/17 11/13/19 (500 mg) chewable tablet (Tums) cyanocobalamin (vitamin B-12) 5,000 mcg SUBLINGUAL QDAY #0 08/14/17 11/13/19 5,000 mcg sublingual tablet (Vitamin B-12) multivitamin (Multiple Vitamins) 1 tab PO QDAY #0 08/14/17 11/13/19 sennosides 8.6 mg tablet (senna) 8.6 mg PO PRN #0 02/12/18 11/13/19 levothyroxine 112 mcg capsule 112 mcg PO DAILY 05/28/18 11/13/19 pramipexole 0.75 mg tablet 0.75 mg PO TID 05/28/18 11/14/19 Respironics Dreamstation CPAP #1 ea 04/08/19 11/14/19 epinastine 0.05 % eye drops 1 drp OPHTHALMIC (EYE) BID 11/13/19 11/13/19 losartan 25 mg tablet 25 mg PO DAILY 11/13/19 11/13/19 Allergies Allergy/AdvReac Type Severity Reaction Status Date / Time metoclopramide [From REGLAN] Allergy Severe UNCONTROLBLE Verified 09/29/21 13:41 LIMB MOVEMENTS Penicillins [PENICILLINS] Allergy Unknown RASH Verified 09/29/21 13:41 Sulfa (Sulfonamide Allergy Verified 09/29/21 13:41 Antibiotics) Review of Systems <DAMON Saucedo - Last Filed: 09/29/21 18:54> Review of Systems Narrative: GENERAL: Denies chills, fatigue, malaise, fever, sweats. HEENT: Denies sinus pain, ear pain, sore throat, difficulty swallowing, dizziness. RESPIRATORY: see HPI CARDIOVASCULAR: Denies chest pain, palpitations, orthopnea, edema, GASTROINTESTINAL: Denies nausea, vomiting, abdominal pain, diarrhea, constipation, melena. : Denies dysuria, frequency, incontinence, hematuria, urinary retention. MUSCULOSKELETAL: see HPI SKIN: Denies rash, skin lesions, or other NEUROLOGIC: see HPI PSYCHIATRIC: No concerning psychosocial issues. 12 point review of systems is negative except for those stated above Patient History <DAMON Saucedo - Last Filed: 09/29/21 18:54> Medical History (Updated 09/29/21 @ 23:36 by Gabbie Verde RN) Hyperlipidemia Hypertension, essential Hypothyroid Left femoral shaft fracture Multiple sclerosis Surgical History H/O cataract removal with insertion of prosthetic lens H/O esophageal hernia repair Family History Father Asthma Mother Colon cancer Social History household members: children Smoking Status: Former smoker alcohol intake: current Smoking Status: Former smoker alcohol intake frequency: holidays/special occasions only Substance Use Type: does not use Exam <MIKO Saucedo - Last Filed: 09/29/21 18:54> Narrative Exam Narrative: GENERAL: Elderly lady lying on stretcher, cervical collar applied by ER stat HEAD: Atraumatic. Normocephalic. No temporal or scalp tenderness. EYES: Pupils equal round and reactive. Extraocular motions intact. No scleral icterus. No injection or drainage. ENT: Nose without bleeding, purulent drainage or septal hematoma. Throat without erythema, tonsillar hypertrophy or exudate. Uvula midline. Airway patent. NECK: Trachea midline. No JVD or lymphadenopathy. Supple, nontender, no meningeal signs. CARDIOVASCULAR: Regular rate and rhythm RESPIRATORY: Clear to auscultation. Breath sounds equal bilaterally. No wheezes, rales, or rhonchi. pain to right while chest palpation, pain to anterior posterior chest wall compression as well as lateral chest wall compression GASTROINTESTINAL: Abdomen soft, non-tender, nondistended. No hepato- splenomegaly, or palpable masses. No guarding. EXTREMITIES: No clubbing, cyanosis, or edema. No joint tenderness, effusion, or edema noted. moving all extremities well. pelvis stable to rock, nontender to palpation. BACK: diffuse tenderness to C-spine, no overt tenderness to T or L-spine palpation. NEURO: AOx3. SKIN: No rash or erythema on visible skin Initial Vital Signs Initial Vital Signs: Vital Signs Temperature 98.3 F 09/29/21 13:38 Pulse Rate 68 09/29/21 13:38 Respiratory Rate 15 09/29/21 13:38 Blood Pressure 171/77 H 09/29/21 13:38 Pulse Oximetry 99 09/29/21 13:38 <Shelly Yates DO - Last Filed: 09/30/21 08:55> Initial Vital Signs Initial Vital Signs: Vital Signs Temperature 98.3 F 09/29/21 13:38 Pulse Rate 68 09/29/21 13:38 Respiratory Rate 15 09/29/21 13:38 Blood Pressure 171/77 H 09/29/21 13:38 Pulse Oximetry 99 09/29/21 13:38 Scores <MIKO Saucedo - Last Filed: 09/29/21 18:54> [place] CT Head Rule Age <16 years old: No Seizure after injury: No GCS < 15 at 2 hr post trauma: No Suspected open or depressed skull fracture: No Any sign of basilar skull fracture (hemotympanum, raccoon eyes, Swift's sign, CSF aliyah-/rhinorrhea): No Two or more episodes of vomiting: No Age greater or equal to 65 years: Yes Retrograde amnesia to the event greater or equal to 30 min: Yes Dangerous Mechanism (pedestrian vs. mv, occupant ejected from mv, fall from >3 ft or > 5 stairs): No Recommendation: Consider CT. The [place] Head CT Rule cannot rule out need for Imaging. GCS Pandora coma scale eye opening: Spontaneous Pandora coma scale verbal response: Orientated Cuong coma scale motor response: Obey commands Cuong coma scale total score: 15 Nexus Score for C-Spine Focal Neurologic deficit present: No Midline spinal tenderness present: Yes Altered level of conciousness present: No Intoxication present: No Distracting Injury Present: Yes (right side pain ) Nexus Criteria for C-spine: 2 <Shelly Yates DO - Last Filed: 09/30/21 08:55> [place] CT Head Rule Recommendation: Consider CT. The [place] Head CT Rule cannot rule out need for Imaging. GCS Pandora coma scale total score: 15 Nexus Score for C-Spine Nexus Criteria for C-spine: 2 Course <MIKO Saucedo - Last Filed: 09/29/21 18:54> Orders Ordered: Acetaminophen (Acetaminophen 325 Mg Tablet) 975 mg PO Q8H PRN PRN Reason: Pain, Mild (1-3) Last Admin: 09/30/21 03:01 Dose: 975 mg Documented by: ANTHONY Aspirin (Aspirin Ec 81 Mg Tablet) 81 mg PO DAILY [facility] Bisacodyl (Bisacodyl 10 Mg Supp) 10 mg [place] DAILY PRN PRN Reason: Constipation Calcium Carbonate (Calcium Carbonate 500 Mg Tab) 500 mg PO BID [facility] Last Admin: 09/29/21 21:57 Dose: 500 mg Documented by: ANTHONY Cyclobenzaprine HCl (Cyclobenzaprine 10 Mg Tablet) 5 mg PO Q8HR PRN PRN Reason: Spasms Docusate Sodium (Docusate 100 Mg Capsule) 100 mg PO BID [facility] Last Admin: 09/29/21 21:57 Dose: 100 mg Documented by: ANTHONY Enoxaparin Sodium (Enoxaparin 40 Mg/0.4 Ml Syringe) 40 mg SUBCUT DAILY [facility] Levothyroxine Sodium (Levothyroxine 112 Mcg Tablet) 112 mcg PO DAILY@0600 [facility] Last Admin: 09/30/21 06:43 Dose: 112 mcg Documented by: MANAV Lidocaine (Remove Lidocaine Patch) 1 each TOP BEDTIME [facility] Last Admin: 09/29/21 21:00 Dose: 1 each Documented by: ANTHONY Lidocaine (Lidocaine Patch 1 Each Adh..Patch) 1 each TOP DAILY [facility] Losartan Potassium (Losartan 25 Mg Tablet) 25 mg PO DAILY [facility] Magnesium Hydroxide (Magnesium Hydroxide 30 Ml Udc) 30 ml PO DAILY PRN PRN Reason: Constipation Morphine Sulfate (Morphine 4 Mg/Ml Inj) 4 mg IV Q4HR PRN PRN Reason: Pain, Severe (7-10) Last Admin: 09/30/21 03:02 Dose: 4 mg Documented by: ANTHONY Naloxone HCl (Naloxone 0.4 Mg/Ml Vial) 0.2 mg IV Q2MIN PRN PRN Reason: Opiate Reversal Ondansetron HCl (Ondansetron 4 Mg/2 Ml Inj) 4 mg IV Q8HR PRN PRN Reason: Nausea And Vomiting Oxycodone HCl (Oxycodone Ir 5 Mg Tablet) 5 mg PO Q6HR PRN PRN Reason: Pain, Moderate (4-6) Last Admin: 09/30/21 06:43 Dose: 5 mg Documented by: Admin: 09/30/21 00:22 Dose: 5 mg Documented by: ANTHONY Pramipexole Dihydrochloride (Pramipexole 0.25 Mg Tablet) 0.75 mg PO Q8H [facility] Last Admin: 09/30/21 06:43 Dose: 0.75 mg Documented by: Admin: 09/29/21 21:57 Dose: 0.75 mg Documented by: ANTHONY Vitamin D (Cholecalciferol (Vitamin D3) 1,000 Unit Tablet) 2,000 unit PO DAILY [facility] Discontinued Medications Ketorolac Tromethamine (Ketorolac 30 Mg/Ml Vial) 30 mg IV Q6HR PRN PRN Reason: Pain, Severe (7-10) Stop: 10/04/21 19:52 Lidocaine (Lidocaine Patch 1 Each Adh..Patch) 1 each TOP NOW ONE Stop: 09/29/21 15:25 Last Admin: 09/29/21 15:37 Dose: 1 each Documented by: AYDE Morphine Sulfate (Morphine 2 Mg/Ml Inj) 2 mg IV NOW ONE Stop: 09/29/21 15:24 Last Admin: 09/29/21 15:37 Dose: 2 mg Documented by: AYDE Morphine Sulfate (Morphine 2 Mg/Ml Inj) 2 mg IV NOW ONE Stop: 09/29/21 17:10 Last Admin: 09/29/21 17:34 Dose: 2 mg Documented by: AYDE Ondansetron HCl (Ondansetron 4 Mg/2 Ml Inj) 4 mg IV NOW ONE Stop: 09/29/21 15:24 Last Admin: 09/29/21 15:37 Dose: 4 mg Documented by: AYDE Vital Signs Vital signs: Vital Signs - 8 hr 09/29/21 13:38 09/29/21 14:26 09/29/21 14:28 Temperature 98.3 F Pulse Rate 68 60 57 L Respiratory Rate 15 18 12 Blood Pressure 171/77 H 177/72 H Pulse Oximetry 99 97 99 09/29/21 14:30 09/29/21 15:07 09/29/21 15:08 Temperature Pulse Rate 57 L 55 L 59 L Respiratory Rate 10 L 31 H 21 Blood Pressure 175/75 H 187/77 H Pulse Oximetry 99 96 100 09/29/21 15:30 09/29/21 16:00 09/29/21 16:30 Temperature Pulse Rate 57 L 56 L 57 L Respiratory Rate 24 24 24 Blood Pressure 175/74 H 165/73 H Pulse Oximetry 99 98 100 09/29/21 16:31 09/29/21 17:00 09/29/21 17:30 Temperature Pulse Rate 57 L 69 57 L Respiratory Rate 26 H 21 21 Blood Pressure 185/78 H 204/84 H Pulse Oximetry 100 98 99 09/29/21 17:31 Temperature Pulse Rate 58 L Respiratory Rate 24 Blood Pressure 166/71 H Pulse Oximetry 99 <Shelly Yates DO - Last Filed: 09/30/21 08:55> Orders Ordered: Acetaminophen (Acetaminophen 325 Mg Tablet) 975 mg PO Q8H PRN PRN Reason: Pain, Mild (1-3) Last Admin: 09/30/21 03:01 Dose: 975 mg Documented by: ANTHONY Aspirin (Aspirin Ec 81 Mg Tablet) 81 mg PO DAILY [facility] Bisacodyl (Bisacodyl 10 Mg Supp) 10 mg [place] DAILY PRN PRN Reason: Constipation Calcium Carbonate (Calcium Carbonate 500 Mg Tab) 500 mg PO BID [facility] Last Admin: 09/29/21 21:57 Dose: 500 mg Documented by: ANTHONY Cyclobenzaprine HCl (Cyclobenzaprine 10 Mg Tablet) 5 mg PO Q8HR PRN PRN Reason: Spasms Docusate Sodium (Docusate 100 Mg Capsule) 100 mg PO BID [facility] Last Admin: 09/29/21 21:57 Dose: 100 mg Documented by: ANTHONY Enoxaparin Sodium (Enoxaparin 40 Mg/0.4 Ml Syringe) 40 mg SUBCUT DAILY [facility] Levothyroxine Sodium (Levothyroxine 112 Mcg Tablet) 112 mcg PO DAILY@0600 [facility] Last Admin: 09/30/21 06:43 Dose: 112 mcg Documented by: MANAV Lidocaine (Remove Lidocaine Patch) 1 each TOP BEDTIME [facility] Last Admin: 09/29/21 21:00 Dose: 1 each Documented by: ANTHONY Lidocaine (Lidocaine Patch 1 Each Adh..Patch) 1 each TOP DAILY [facility] Losartan Potassium (Losartan 25 Mg Tablet) 25 mg PO DAILY [facility] Magnesium Hydroxide (Magnesium Hydroxide 30 Ml Udc) 30 ml PO DAILY PRN PRN Reason: Constipation Morphine Sulfate (Morphine 4 Mg/Ml Inj) 4 mg IV Q4HR PRN PRN Reason: Pain, Severe (7-10) Last Admin: 09/30/21 03:02 Dose: 4 mg Documented by: ANTHONY Naloxone HCl (Naloxone 0.4 Mg/Ml Vial) 0.2 mg IV Q2MIN PRN PRN Reason: Opiate Reversal Ondansetron HCl (Ondansetron 4 Mg/2 Ml Inj) 4 mg IV Q8HR PRN PRN Reason: Nausea And Vomiting Oxycodone HCl (Oxycodone Ir 5 Mg Tablet) 5 mg PO Q6HR PRN PRN Reason: Pain, Moderate (4-6) Last Admin: 09/30/21 06:43 Dose: 5 mg Documented by: Admin: 09/30/21 00:22 Dose: 5 mg Documented by: ANTHONY Pramipexole Dihydrochloride (Pramipexole 0.25 Mg Tablet) 0.75 mg PO Q8H [facility] Last Admin: 09/30/21 06:43 Dose: 0.75 mg Documented by: Admin: 09/29/21 21:57 Dose: 0.75 mg Documented by: ANTHONY Vitamin D (Cholecalciferol (Vitamin D3) 1,000 Unit Tablet) 2,000 unit PO DAILY [facility] Discontinued Medications Ketorolac Tromethamine (Ketorolac 30 Mg/Ml Vial) 30 mg IV Q6HR PRN PRN Reason: Pain, Severe (7-10) Stop: 10/04/21 19:52 Lidocaine (Lidocaine Patch 1 Each Adh..Patch) 1 each TOP NOW ONE Stop: 09/29/21 15:25 Last Admin: 09/29/21 15:37 Dose: 1 each Documented by: AYDE Morphine Sulfate (Morphine 2 Mg/Ml Inj) 2 mg IV NOW ONE Stop: 09/29/21 15:24 Last Admin: 09/29/21 15:37 Dose: 2 mg Documented by: AYDE Morphine Sulfate (Morphine 2 Mg/Ml Inj) 2 mg IV NOW ONE Stop: 09/29/21 17:10 Last Admin: 09/29/21 17:34 Dose: 2 mg Documented by: AYDE Ondansetron HCl (Ondansetron 4 Mg/2 Ml Inj) 4 mg IV NOW ONE Stop: 09/29/21 15:24 Last Admin: 09/29/21 15:37 Dose: 4 mg Documented by: AYDE Vital Signs Vital signs: Vital Signs - 8 hr 09/29/21 13:38 09/29/21 14:26 09/29/21 14:28 Temperature 98.3 F Pulse Rate 68 60 57 L Respiratory Rate 15 18 12 Blood Pressure 171/77 H 177/72 H Pulse Oximetry 99 97 99 09/29/21 14:30 09/29/21 15:07 09/29/21 15:08 Temperature Pulse Rate 57 L 55 L 59 L Respiratory Rate 10 L 31 H 21 Blood Pressure 175/75 H 187/77 H Pulse Oximetry 99 96 100 09/29/21 15:30 09/29/21 16:00 09/29/21 16:30 Temperature Pulse Rate 57 L 56 L 57 L Respiratory Rate 24 24 24 Blood Pressure 175/74 H 165/73 H Pulse Oximetry 99 98 100 09/29/21 16:31 09/29/21 17:00 09/29/21 17:30 Temperature Pulse Rate 57 L 69 57 L Respiratory Rate 26 H 21 21 Blood Pressure 185/78 H 204/84 H Pulse Oximetry 100 98 99 09/29/21 17:31 Temperature Pulse Rate 58 L Respiratory Rate 24 Blood Pressure 166/71 H Pulse Oximetry 99 MDM - Fall <Carrie Crain, LAMP ASSEMBLER-BC - Last Filed: 09/29/21 18:54> Lab Data Result diagrams: 09/29/21 14:26 09/30/21 04:55 Labs: Lab Results 09/29/21 09/29/21 09/29/21 Range/Units 14:26 14:26 16:03 WBC 8.4 (4.5-11.0) X10^3/uL RBC 4.01 (4.0-5.2) X10^6/uL Hgb 12.1 (12.0-16.0) g/dL Hct 36.6 (36-46) % MCV 91.2 (80-100) fL MCH 30.2 (26-34) PG MCHC 33.1 (30-36) % RDW 14.5 (11.6-14.8) % Plt Count 184 (150-400) X10^3/uL Neut % (Auto) 84.2 H (50-75) % Lymph % (Auto) 6.9 L (25-40) % [place] % (Auto) 7.6 (3-14) % Eos % (Auto) 0.5 L (2-4) % Baso % (Auto) 0.8 (0-2) % Neut # (Auto) 7100 H (7879-7566) /uL Lymph # (Auto) 600 L (3189-2263) /uL [place] # (Auto) 600 (0-900) /uL Eos # (Auto) 0 (0-450) /uL Baso # (Auto) 100 (0-100) /uL Sodium 129 L (137-145) mmol/L Potassium 4.7 (3.4-5.1) mmol/L Chloride 98 (98-107) mmol/L Carbon Dioxide 24 (22-32) mmol/L BUN 23 H (7-17) mg/dL Creatinine 0.72 (0.52-1.04) mg/dL Estimated GFR > 60.0 (>60) mL/min BUN/Creatinine Ratio 31.9 H (6-22) Glucose 122 H (80-110) mg/dL Calcium 9.4 (8.4-10.2) mg/dL Total Bilirubin 0.6 (0.2-1.3) mg/dL AST 50 H (14-36) IU/L ALT 22 (<35) IU/L Alkaline Phosphatase 74 (38-126) U/L Total Creatine Kinase 50 (30-135) U/L Total Protein 7.3 (6.3-8.2) g/dL Albumin 4.0 (3.5-5.0) g/dL Globulin 3.3 (1.7-4.1) g/dL Albumin/Globulin Ratio 1.2 (1.0-2.8) SARS-CoV-2 (PCR) Negative (Negative) MDM Narrative Medical decision making narrative: the patient is an 86-year-old female with history of multiple sclerosis and multiple falls who presents to emergency department several days after a ground level fall. Her head CT is negative, CT of her C-spine is concerning for a T4 wedge deformity, and x-ray is concerning for multiple rib fractures. Her C-collar was removed after negative CT C-spine results. Thus CT chest with T-spine recon was completed. she is noted to have a rib fracture on her left, suspected multiple old rib fractures right side. However she is very tender to right-sided chest wall palpation making me think that these rib fractures are acute. She is noted to be Hyponatremic at 129. I spoke with Dr. Yates after the patients initial imaging results including a plain films ribs and CT head C-spine, as well as after her CT chest. Discussed the possibility of being activated as a modified trauma with Altagracia DELGADO. Given the patient being unstable at home, questionable duration of being on the ground, as well as hyponatremia, patient was given multiple doses of morphine for pain in the emergency department. I spoke with Dr. Zhang from surgery regarding the patient, who states that she is not sure what she would be able to do for the patient given that she fell 2 days ago. I spoke with Dr. Zavala who kindly accepted the patient for admission. <Shelly Yates, DO - Last Filed: 09/30/21 08:55> Lab Data Labs: Lab Results 1109/29/21 09/29/21 Range/Units 14:26 14:26 16:03 WBC 8.4 (4.5-11.0) X10^3/uL RBC 4.01 (4.0-5.2) X10^6/uL Hgb 12.1 (12.0-16.0) g/dL Hct 36.6 (36-46) % MCV 91.2 (80-100) fL MCH 30.2 (26-34) PG MCHC 33.1 (30-36) % RDW 14.5 (11.6-14.8) % Plt Count 184 (150-400) X10^3/uL Neut % (Auto) 84.2 H (50-75) % Lymph % (Auto) 6.9 L (25-40) % [place] % (Auto) 7.6 (3-14) % Eos % (Auto) 0.5 L (2-4) % Baso % (Auto) 0.8 (0-2) % Neut # (Auto) 7100 H (3460-7951) /uL Lymph # (Auto) 600 L (8021-4617) /uL [place] # (Auto) 600 (0-900) /uL Eos # (Auto) 0 (0-450) /uL Baso # (Auto) 100 (0-100) /uL Sodium 129 L (137-145) mmol/L Potassium 4.7 (3.4-5.1) mmol/L Chloride 98 (98-107) mmol/L Carbon Dioxide 24 (22-32) mmol/L BUN 23 H (7-17) mg/dL Creatinine 0.72 (0.52-1.04) mg/dL Estimated GFR > 60.0 (>60) mL/min BUN/Creatinine Ratio 31.9 H (6-22) Glucose 122 H (80-110) mg/dL Calcium 9.4 (8.4-10.2) mg/dL Total Bilirubin 0.6 (0.2-1.3) mg/dL AST 50 H (14-36) IU/L ALT 22 (<35) IU/L Alkaline Phosphatase 74 (38-126) U/L Total Creatine Kinase 50 (30-135) U/L Total Protein 7.3 (6.3-8.2) g/dL Albumin 4.0 (3.5-5.0) g/dL Globulin 3.3 (1.7-4.1) g/dL Albumin/Globulin Ratio 1.2 (1.0-2.8) SARS-CoV-2 (PCR) Negative (Negative) Discharge Plan Departure Patient Disposition: Admitted as Observation Clinical Impression: Hyponatremia, Multiple fractures of ribs Admit Date/Time: 09/29/21 17:43 Admit Provider: Dax Zavala <Shelly Yates DO - Last Filed: 09/30/21 08:55> Cosign ED Attending Cosignature Attestation: I was immediately available in the department for consultation. Documentation has been reviewed. I agree with assessment and plan.
[2021-09-29 14:33] LABS: Add Manual Diff / Slide Review NO; Basophils Absolute Auto 100 /uL (0-100); Basophils Percent Auto 0.8 % (0-2); Eosinophils Absolute Auto 0 /uL (0-450); Eosinophils Percent Auto 0.5 % (2-4); Hematocrit 36.6 % (36-46); Hemoglobin 12.1 g/dL (12.0-16.0); Lymphocytes Absolute Auto 600 /uL (1100-4500); Lymphocytes Percent Auto 6.9 % (25-40); Mean Corpuscular HGB Conc 33.1 % (30-36); Mean Corpuscular Hemoglobin 30.2 PG (26-34); Mean Corpuscular Volume 91.2 fL (80-100); Monocytes Absolute Auto 600 /uL (0-900); Monocytes Percent Auto 7.6 % (3-14); Neutrophils Absolute Auto 7100 /uL (1500-7000); Neutrophils Percent Auto 84.2 % (50-75); Platelet Count 184 X10^3/uL (150-400); Red Blood Cell Count 4.01 X10^6/uL (4.0-5.2); Red Cell Distribution Width 14.5 % (11.6-14.8); White Blood Cell Count 8.4 X10^3/uL (4.5-11.0)
--- NOTE | 2021-09-29 14:49 | DI.CT.S_ITS ---
PROCEDURE: CT CHEST WO CON INDICATIONS: mult rib fractures TECHNIQUE: Noncontrast 5 mm thick sections acquired from the pulmonary apices to the posterior costophrenic angles. 1 mm lung window, 5 mm thick coronal and sagittal and 7 mm axial MIP reformats were then acquired. For radiation dose reduction, the following was used: automated exposure control, adjustment of mA and/or kV according to patient size. COMPARISON: [facility], CR, XR LUMBAR SPINE 2-3V, 07/19/2018, 16:49. [facility], CR, XR RIBS RT 2V, 11/15/2019, 10:26. [facility], CR, XR RIBS RT MIN 3V W CXR 1V, 09/29/2021, 13:47. FINDINGS: Image quality: Excellent. Lungs and pleura: No pneumothorax. There are minimal bilateral pleural effusions. Dependent atelectasis is demonstrated bilaterally. No pulmonary contusions or lacerations. No acute consolidation. The trachea and central airways appear patent. Mediastinum: Heart size is normal. No pericardial effusion. There is mild aneurysmal dilatation of the thoracic aorta, with the ascending aorta measuring up to 4.1 cm in diameter. The aortic arch measures up to 3.0 cm at the apex. The proximal descending aorta measures up to 3.1 cm. At the level of the diaphragmatic hiatus, the aorta measures up to 2.3 cm. No mediastinal adenopathy by size criteria. Esophagus is normal in caliber. There is a small hiatal hernia. Postsurgical changes are demonstrated at the gastroesophageal junction. Bones and chest wall: There is a mildly displaced acute fracture of the left 7th rib anterolaterally. There are healed fractures of the left 3rd through 6th ribs anterolaterally. There are old healed fractures of the right posterior 9th through 11th ribs. No suspicious bony lesions. Multiple compression deformities are demonstrated within the thoracic spine. These include moderate anterior compression fractures of the T7 and T9 vertebral bodies of indeterminate acuity. There is loss of height of up to approximately 70-80% centrally at T10. At T7, there is loss of height of up to approximately 50%. At T12, there are endplate compression deformities with loss of height of up to approximately 50-60%. At T4, there is a compression deformity along the superior endplate with loss of height of approximately 30-40%. In addition, compression deformities are also demonstrated in the visualized lumbar spine with superior endplate compression at L3 with loss of height of 60-70%. At L4, there is loss of height centrally of approximately 60%. No retropulsed fragments within the spinal canal. There is mild associated bony spinal canal narrowing at a few levels in the thoracic spine. Within the lumbar spine there is moderate bony spinal canal narrowing at L4-5. The compression deformities within the lower thoracic and lumbar spine appear similar to the prior lumbar spine study of 07/19/2018. No axillary or supraclavicular adenopathy by size criteria. Abdomen: Visualized upper abdomen demonstrates multiple cysts within the visualized liver. There is mild nonspecific perinephric stranding bilaterally. Bilateral exophytic renal cysts are also demonstrated along the visualized kidneys. IMPRESSION: 1. Acute mildly displaced fracture of the left 7th rib anterolaterally. 2. Multiple additional healed bilateral rib fractures as described. 3. No evidence of pneumothorax. 4. Multiple compression deformities redemonstrated within the thoracic and lumbar spine, with the visualized levels in the lower thoracic and lumbar spine similar in appearance to the prior x-ray study. Dictated by: Elan Bazan M.D. on 09/29/2021 at 15:19 Approved by: Elan Bazan M.D. on 09/29/2021 at 15:33
[2021-09-29 14:50] LABS: Alanine Aminotransferase 22 IU/L (<35); Albumin Globulin Ratio 1.2 (1.0-2.8); Alkaline Phosphatase 74 U/L (38-126); Aspartate Aminotransferase 50 IU/L (14-36); BUN Creatinine Ratio 31.9 (6-22); Bilirubin Total 0.6 mg/dL (0.2-1.3); Blood Urea Nitrogen 23 mg/dL (7-17); Calcium 9.4 mg/dL (8.4-10.2); Carbon Dioxide 24 mmol/L (22-32); Chloride 98 mmol/L (98-107); Creatine Kinase 50 U/L (30-135); Estimated Glomerular Filt Rate > 60.0 mL/min (>60); Globulin 3.3 g/dL (1.7-4.1); Glucose 122 mg/dL (80-110); HEMOLYSIS 23 (0-50); Potassium 4.7 mmol/L (3.4-5.1); Sodium 129 mmol/L (137-145); Total Protein 7.3 g/dL (6.3-8.2)
[2021-09-29] MEDS: MORPHINE 2 MG/ML INJ IV ×2 (15:37→17:34)
[2021-09-29] MEDS: LIDOCAINE PATCH 1 EACH ADH..PATCH TOP (15:37)
[2021-09-29] MEDS: ONDANSETRON 4 MG/2 ML INJ IV (15:37)
[2021-09-29 17:18] LABS: COVID19 - ADMIT (NP swab/PCR) Negative (Negative)
--- NOTE | 2021-09-29 20:15 | PM.HP.1 ---
History of Present Illness History of Present Illness Date Patient Seen: 09/29/21 Chief complaint: GLF 2 nights ago Narrative: The patient is an 86 y/o female with a history of multiple sclerosis, hypertension, and hypothyrodism who was well until two days prior to admission. The patient uses a walker to ambulate. She was standing at the sink brushing her teeth when she lost her balance as her legs slipped from under her. She fell without loss of consciouness. She does not recall how she fell or what she may have hit going down. The patient continue to have left rib pain and was brought into the ED for evaluation. She was treated as a modified trauma. She underwent multiple imaging studies to include: Chest CT which revealed an acutely mildly displaced fracture of the let 7th rib anterolaterally, there were multiple additional healed bilateral rib fractures as well. There were multiple compression deformities within the thoracic and lumbar spine. Head CT revealed no acute intracranial hemorrahge, no displaced calverial fracture was seen. Cervical Spine CT revealed a new T$ anterior wedge deformity with 40% loss of height anteriorly. Rib xrays revealed fractures of the 9th, 10th, and 11th ribes of uncertain chronicity. No evidence of pneumothorax was identified. WBC 8.4 H/H 12.1/36.6, sodium 129 potassium 4.7, Bun 23, Creatinine .72, Patient continued to have significant pain, was hyponatremic, and felt to be unsafe to return home to independent living. She is admitted under observation for further evaluation. Patient History Medical History Hyperlipidemia Hypertension, essential Hypothyroid Left femoral shaft fracture Multiple sclerosis Surgical History H/O cataract removal with insertion of prosthetic lens H/O esophageal hernia repair Family & Social History Family History Father Asthma Mother Colon cancer Social History: household members children Safety & Behavioral: Feels Safe in Current Yes Environment Been Physically Hurt or No Threatened By a Person Suicidal Ideation Description None Suicide Plan Description No Plan Tobacco & Substance use: Tobacco type cigarettes Smoking Status Former smoker alcohol intake current alcohol intake frequency holiday/special occasion Substance Use Type does not use Meds Home Medications and Allergies Home Medications Medication Instructions Recorded Confirmed Type aspirin 81 mg tablet,delayed 81 mg PO DAILY #0 05/08/12 11/13/19 History release cyclosporine 0.05 % eye drops in a 1 drp OPHTHALMIC (EYE) DIRECTED 05/08/12 11/14/19 History dropperette (Restasis) #0 ascorbic acid (vitamin C) 500 mg 500 mg PO QDAY #0 08/14/17 11/13/19 History tablet calcium carbonate 200 mg calcium 500 mg PO PRN PRN #0 08/14/17 11/13/19 History (500 mg) chewable tablet (Tums) cyanocobalamin (vitamin B-12) 5,000 mcg SUBLINGUAL QDAY #0 08/14/17 11/13/19 History 5,000 mcg sublingual tablet (Vitamin B-12) multivitamin (Multiple Vitamins) 1 tab PO QDAY #0 08/14/17 11/13/19 History sennosides 8.6 mg tablet (senna) 8.6 mg PO PRN #0 02/12/18 11/13/19 History levothyroxine 112 mcg capsule 112 mcg PO DAILY 05/28/18 11/13/19 History pramipexole 0.75 mg tablet 0.75 mg PO TID 05/28/18 11/14/19 History Respironics Dreamstation CPAP #1 ea 04/08/19 11/14/19 History epinastine 0.05 % eye drops 1 drp OPHTHALMIC (EYE) BID 11/13/19 11/13/19 History losartan 25 mg tablet 25 mg PO DAILY 11/13/19 11/13/19 History Allergies Allergy/AdvReac Type Severity Reaction Status Date / Time metoclopramide [From REGLAN] Allergy Severe UNCONTROLBLE Verified 09/29/21 13:41 LIMB MOVEMENTS Penicillins [PENICILLINS] Allergy Unknown RASH Verified 09/29/21 13:41 Sulfa (Sulfonamide Allergy Verified 09/29/21 13:41 Antibiotics) Review of Systems Review of Systems Narrative: 10 point review of system is negative except as above Exam Vital Signs (past 8 hours): - 09/29/21 13:38 09/29/21 14:26 09/29/21 14:28 Temperature 98.3 F Pulse Rate 68 60 57 L Respiratory Rate 15 18 12 Blood Pressure 171/77 H 177/72 H Pulse Oximetry 99 97 99 09/29/21 14:30 09/29/21 15:07 09/29/21 15:08 Temperature Pulse Rate 57 L 55 L 59 L Respiratory Rate 10 L 31 H 21 Blood Pressure 175/75 H 187/77 H Pulse Oximetry 99 96 100 09/29/21 15:30 09/29/21 16:00 09/29/21 16:30 Temperature Pulse Rate 57 L 56 L 57 L Respiratory Rate 24 24 24 Blood Pressure 175/74 H 165/73 H Pulse Oximetry 99 98 100 09/29/21 16:31 09/29/21 17:00 09/29/21 17:30 Temperature Pulse Rate 57 L 69 57 L Respiratory Rate 26 H 21 21 Blood Pressure 185/78 H 204/84 H Pulse Oximetry 100 98 99 09/29/21 17:31 Temperature Pulse Rate 58 L Respiratory Rate 24 Blood Pressure 166/71 H Pulse Oximetry 99 Oxygen Delivery Method Room Air Narrative Exam Narrative: pleasant frail elderly female lying in bed uncomfortable with pain HENMT Other: NC/AT, Sclera anicteric, oropharynx clear, neck supple, Chest Other: left chest wall tender to palpation, patient with active guarding when breathing or moving Resp Other: Lungs: clear to auscultation Cardio Other: RRR nl Sl S2 GI Other: abd: soft/ non tender/ non distended Skin Other: multiple wounds on lower extremites. compression bandages in place Neuro Other: awake, alert, and appropriate Cranial nerves 2-12 intact Strength symmetric and equal in upper and lower extremities Sensation grossly intact Gait is not assessed Extrem Other: no edema, Psych Other: No hallucinations or thought distortions Objective Labs Result Diagrams: 09/29/21 14:26 09/29/21 14:26 Labs: Laboratory Results - last 24 hr 09/29/21 09/29/21 09/29/21 14:26 14:26 16:03 WBC 8.4 RBC 4.01 Hgb 12.1 Hct 36.6 MCV 91.2 MCH 30.2 MCHC 33.1 RDW 14.5 Plt Count 184 Neut % (Auto) 84.2 H Lymph % (Auto) 6.9 L [place] % (Auto) 7.6 Eos % (Auto) 0.5 L Baso % (Auto) 0.8 Neut # (Auto) 7100 H Lymph # (Auto) 600 L [place] # (Auto) 600 Eos # (Auto) 0 Baso # (Auto) 100 Sodium 129 L Potassium 4.7 Chloride 98 Carbon Dioxide 24 BUN 23 H Creatinine 0.72 Estimated GFR > 60.0 BUN/Creatinine Ratio 31.9 H Glucose 122 H Calcium 9.4 Total Bilirubin 0.6 AST 50 H ALT 22 Alkaline Phosphatase 74 Total Creatine Kinase 50 Total Protein 7.3 Albumin 4.0 Globulin 3.3 Albumin/Globulin Ratio 1.2 SARS-CoV-2 (PCR) Negative Assessment & Plan Assessment & Plan narrative: 86 y/o female with a history of multiple sclerosis, hypertension, hyperlipidemia, hyponatremia admitted to the hospital following a ground level fall -Patient with multiple rib fractures on CT imaging, likely both new and old -CT of cervical spine reveals T4 wedge deformity -Acute mildly displaced fracture of the 7th rib anterolaterally -multiple healed bilateral rib fractures -multiple compression fractures redemonstrated within the thoracic and lumbar spine -Patient with significant pain and mobility issues -will continue tylenol, lidoderm patch, morphine for pain, cyclobenzaprine for spasms -PT/OT consultation -may need SNF at discharge Hypertension -blood pressure with suboptimal control -control pain -continue losartan Hypothyroidism -continue Lthyroxine Osteoporosis -likely contributing to multiple fractures -needs vit D and bisphosphonate, -start Calcium and Vit D now -defer bisphosphonate as outpatient Multiple Sclerosis -not on treatment currently Hyponatremia -free water restriction -follow closely Lower extremity ulcer/wounds -continue current wound care Patient will be started on lovenox for DVT prophylaxis She reports she is DNR/DNI Her Grandson is her surrogate decision maker Patient will be admitted under observation I have utilized all available resources to review, update, and confirm the patients current medications Time Spent With Patient Critical Care time: I spent a total of [] minutes of critical care time on this patient's care today; this time is exclusive of procedural time.
[2021-09-29] MEDS: PRAMIPEXOLE 0.25 MG TABLET 0.75 MG PO (21:57)
[2021-09-29] MEDS: DOCUSATE 100 MG CAPSULE PO (21:57)
[2021-09-29] MEDS: CALCIUM CARBONATE 500 MG TAB PO (21:57)
[2021-09-30] MEDS: OXYCODONE IR 5 MG TABLET PO ×2 (00:22→06:43)
[2021-09-30] MEDS: ACETAMINOPHEN 325 MG TABLET 975 MG PO (03:01)
[2021-09-30] MEDS: MORPHINE 4 MG/ML INJ IV ×2 (03:02→11:53)
[2021-09-30 04:00] VITALS: BP 141/58; PULSE 57; RESP 14; TEMP 36.3; O2SAT 100
[2021-09-30 05:46] LABS: BUN Creatinine Ratio 19.8 (6-22); Blood Urea Nitrogen 19 mg/dL (7-17); Calcium 9.2 mg/dL (8.4-10.2); Carbon Dioxide 32 mmol/L (22-32); Chloride 97 mmol/L (98-107); Estimated Glomerular Filt Rate 55.4 mL/min (>60); Glucose 96 mg/dL (80-110); HEMOLYSIS < 15 (0-50); Potassium 4.7 mmol/L (3.4-5.1); Sodium 133 mmol/L (137-145)
[2021-09-30] MEDS: LEVOTHYROXINE 112 MCG TABLET PO (06:43)
[2021-09-30] MEDS: PRAMIPEXOLE 0.25 MG TABLET 0.75 MG PO ×2 (06:43→14:22)
[2021-09-30] MEDS: LIDOCAINE PATCH 1 EACH ADH..PATCH TOP (09:46)
[2021-09-30] MEDS: CALCIUM CARBONATE 500 MG TAB PO ×2 (09:46→21:34)
[2021-09-30] MEDS: DOCUSATE 100 MG CAPSULE PO ×2 (09:46→21:34)
[2021-09-30] MEDS: ENOXAPARIN 40 MG/0.4 ML SYRINGE SUBCUT (09:46)
[2021-09-30 09:47] VITALS: BP 129/48; PULSE 57
[2021-09-30] MEDS: CHOLECALCIFEROL (VITAMIN D3) 1,000 UNIT TABLET 2000 UNIT PO (09:47)
[2021-09-30] MEDS: ASPIRIN EC 81 MG TABLET PO (09:47)
[2021-09-30] MEDS: LOSARTAN 25 MG TABLET PO (09:47)
[2021-09-30 10:25] VITALS: BP 117/52; PULSE 59; RESP 16; TEMP 36.3; O2SAT 97
--- NOTE | 2021-09-30 11:34 | CM.DANOTE ---
Addendum entered by Laura Shaffer R.N. 09/30/21 16:00: Updated Swapna at [facility] to look for P.T. note this pm in order to get this to her insurance. Placed note in P.T. office asking physical therapist to put note in as soon as possible. Addendum entered by Laura Shaffer R.N. 09/30/21 15:45: Will ask P.T. to put note in as soon as possible, since she is observation, and needs placement to [facility], based upon an insurance auth needed by P.T, that this will need to be a priority. Addendum entered by Laura Shaffer R.N. 09/30/21 15:19: Spoke to Swapna at [facility] to follow up with referral. April indicate that she had looked up patient's insurance, and she indicated, patient has good coverage through [employer]. April indicated that she needs P.T. note completed so she can submit authorization. P.T. attempted to work with her, but she was having lunch. O.T. had already worked with her. P.T. is supposed to be seeing patient this afternoon. Original Note: DCP: Case received, EMR reviewed and met with patient. Introduced self and role. Was able to obtain information from patient regarding her baseline activity status prior to hospitalization, as well as her current living status. DCP assessment completed with information currently available. Patient is an 86 year old female who admitted yesterday afternoon to the care of the hospitalist team. PCP: Dr. Sims. Payer: confirmed: [employer]. Patient came to the hospital via ambulance secondary to her having a ground level fall. According to notes. patient had been in the bathroom, reached for her walker, and fell. Patient has history of falls secondary to her having MS. Patient has some rib fractures, as well as hyponatremia. She was considered unsafe to return to her home. Met with patient in her room. She was sitting on the edge of the bed getting ready to work with Ashley occupational therapist. Patient is alert and oriented. She confirmed that she resides at [facility] here in [place]. Patient indicated that her daughter, Donna Bernstein stays with her, but not always reliable. She indicated that when she fell, her daughter was not there, she had to crawl to the divan. Mentioned senior living. Patient indicated, I know I need to go to rehab for 24 hour care. Asked her if her goal is to return to [facility], and she indicated, it is. She has no preferences upon rehab. Called Swapna at [facility], and she is reviewing. Patient has [facility] Medicare Advantage. Swapna will be calling her insurance to see if they can get a one time agreement since they are out of network, and will let this special events planner today. Let her know patient will be ready tomorrow, if not today. Went ahead and completed PASSR. P: DCP to continue to follow and work on placement. Swapna will get back to this special events planner today regarding her insurance. If she can't get agreement, will need to reach out to another skilled facility. Laura Shaffer RN/Hot Dip Tinning Supervisor Discharge Planning/Care Management CM Discharge Assessment Start: 09/30/21 11:32 Freq: Status: Active Protocol: Document 09/30/21 11:32 (Rec: 09/30/21 11:34 [id number]) Discharge Planning Assessment Assigned Residential Worker Laura Shaffer RN/Hot Dip Tinning Supervisor Advance Directives? Yes Advance Directives on File No History Provided By Patient,Medical Record Prior Living Arrangements House Household Members children Type of transporation used prior to Drives own vehicle admit Independent with ADL's Yes Is patient alert and oriented? Yes Needs Assistance With Meal Prep,Home Chores / Shopping DME Already Rented / Owned FWW / Walker Patient/Family Preference Custodial Facility Comment Initial referral sent to [facility] Barriers to Discharge Yes Comment Lives at [facility], unable to return there until she gets some rehab. Discharge Plan Custodial Facility Transportation Arrangement Facility Referrals Initiated Custodial If patient plan is SNF: Has PASSR been Yes completed? Whiteboard Updated in Patient Room with Yes name and ext. # of Residential Worker Review Status In Process Next Review Type Continued Stay Review
--- NOTE | 2021-09-30 11:47 | OT.IP.EVAL ---
Current Diagnoses Hypo-osmolality and hyponatremia (09/29/21) Past Medical History (Last Reviewed 09/29/21 @ 20:32 by Dana Simons MD) H/O cataract removal with insertion of prosthetic lens H/O esophageal hernia repair Hyperlipidemia Hypertension, essential Hypothyroid Left femoral shaft fracture Multiple sclerosis Surgical History (Last Reviewed 09/29/21 @ 20:32 by Dana Simons MD) H/O cataract removal with insertion of prosthetic lens H/O esophageal hernia repair Occupational Therapy Inpatient Evaluation/Re-Eval M1 PT/OT-IP Prior Functional Status Start: 09/30/21 13:49 Freq: NEEDED Status: Active Protocol: Document 09/30/21 13:49 CGR (Rec: 09/30/21 14:03 CGR [id number]) Medical Review Prior Functional Status Medical History Reviewed Yes Communication Pt is an effective verbal communicator but is [place] with hearing aids Mobility and Gait Pt was MOD I with the use of a 4ww most of the time and used a FWW for mobility when she had to transport her walker in the car. Activities of Daily Living and IADL's Pt was MOD I with the use of a 4ww, toilet seate heightner, and shower chair. Social History Household Members children Living Arrangements [facility]sp Facility Number of Stairs To Enter/Railing? no stairs Home Environment Standard Height Toilet,Walk in Shower Home Equipment Front Wheel Walker,Four Wheel Walker,Raised Toilet Seat w/ Armrests,Shower Seat without Backrest,Grab Bars In Shower Employment Status Retired Additional Social History Comment Pt lives at [facility] in [address] with her daughter. Per pt, daughter is not disabled physically or mentally but has personality issues and is not reliable for assist. M2 OT-IP Current Condition Start: 09/30/21 13:49 Freq: Status: Active Protocol: Document 09/30/21 13:49 CGR (Rec: 09/30/21 14:03 CGR [id number]) Occupational Therapy Current Condition Current Condition Evaluation Date 09/30/21 Treatment Diagnosis fall with L 7th displaced rib fx. Diagnosis Onset Date 09/29/21 M3 OT- IP Subjective and Pain Start: 09/30/21 13:49 Freq: Status: Active Protocol: Document 09/30/21 13:49 CGR (Rec: 09/30/21 14:03 CGR [id number]) OT- Subjective Occupational Therapy Visit Type Type Initial Evaluation Visit Start Time 11:03 Visit Stop Time 11:47 Total Visit Minutes 44 OT Pain Assessment Pain When Pain Assessed At Rest Pain Present Pain Present Pain Reported Location Head Intensity 1 Scale Used Numeric (0 - 10) Management Techniques Modification of Treatment,Re- positioning M4 OT- IP ADL's Start: 09/30/21 13:49 Freq: Status: Active Protocol: Document 09/30/21 13:49 CGR (Rec: 09/30/21 14:03 CGR [id number]) OT [id number] Comments OT Self-Feeding Comments not meal time OT ADL-Grooming General Evaluation Grooming Ability Standby Assistance Areas Needing Assistance Face Washing Comments OT Grooming Comments Pt needed max extra time to perform OT ADL-Oral Care Comments Oral Care Comments Not performed, pt states that she can't use typical stuff d/ t stitches. OT ADL-Dressing General Eval Lower Body Dressing Ability Total Assistance Areas Needing Assistance Socks OT ADL-Toileting General Evaluation Toileting Ability Total Assistance Comments OT Toileting Comments bhat OT ADL-Bathing Comments OT Bathing Comments not performed M5 OT- IP IADL's Start: 09/30/21 13:49 Freq: Status: Active Protocol: Document 09/30/21 13:49 CGR (Rec: 09/30/21 14:03 CGR [id number]) OT-Instrumental Activities of Daily Living Deficits IADL Deficits Identified Deficits Home Safety Awareness Awareness of Need for Assistance at Home Decreased Awareness Ability to Problem Solve Emergency Unable to Problem Solve Situations Home Safety Comments Pt states she is on morphine and that it greatly impacts her cognition. Medication Management Medication Management Comments concerns regarding her ability to perform safely Money Management Money Management Comments concerns regarding her ability to perform safely Meal Preparation Meal Preparation Comments concerns regarding her ability to perform safely Ambulance Assistant Ambulance Assistant Comments concerns regarding her ability to perform safely Driving Driving Comments concerns regarding her ability to perform safely M6 OT- IP Functional Cognition Start: 09/30/21 13:49 Freq: Status: Active Protocol: Document 09/30/21 13:49 CGR (Rec: 09/30/21 14:03 CGR [id number]) Cognitive Factors Limiting Selfcare Function Cognitive Ability Level of Alertness Alert,Confusional State Patient Orientation Name,Age,Month,Date,Year,Day of Week,Place,Situation Attention Span Ability Capable of Focused Attention, Unable to Sustain Attention Ability to Follow Commands Able to Follow One Step Commands with Increased Time, Able to Follow One Step Commands with Repetition Cognitive Comments Cognitive Assessment Comments Pt states her cognition is greatly impacted by pain medications. OT- Vision and Hearing OT- Hearing Assessment OT- Hearing Assessment Hearing Impaired,Use of Hearing Aids OT- Vision Assessment Visual Acuity Glasses For Reading Visual Attentiveness WFL Occular Pursuits WFL M7 OT- IP Mobility and Balance Start: 09/30/21 13:49 Freq: Status: Active Protocol: Document 09/30/21 13:49 CGR (Rec: 09/30/21 14:03 CGR [id number]) OT- Bed Mobility Assessment Supine to Sit Supine to Sit Assist Minimal Assistance Scooting Scooting to Edge of Bed Moderate Assistance OT-Transfer Assessment Sit to and From Stand Sit to and from Stand Moderate Assistance,1 Person Assistance Transfers Transfer Ability Moderate Assistance,1 Person Assistance Technique Transfer Destination Bed,Chair Transfer Technique Stand Step Pivot Devices Transfer Assistive Devices Gait Belt,Front Wheeled Walker Comments Mobility Comments pt states fear of falling and declined further mobility at this time. OT- Balance Assessment Sitting Balance and Reactions Static Sitting Balance Ability Fair Dynamic Sitting Balance Ability Fair M8 OT- IP Objective Assessments Start: 09/30/21 13:49 Freq: Status: Active Protocol: Document 09/30/21 13:49 CGR (Rec: 09/30/21 14:03 CGR [id number]) OT Gross Range of Motion Upper Extremity Range of Motion Assessment Within Functional Limits OT Strength Upper Extremity Strength Assessment Within Functional Limits Comments Strength Comments grossly 4-/5 OT- Coordination Assessment Upper Extremity Finger to Nose Test Bilateral UE Impaired Finger Tapping Test Bilateral UE Impaired Comments Coordination Comments pt had difficulty with fine motor likely d/t medication at this time. OT-Muscle Tone Assessment Muscle Tone WNL Yes OT Sensation Assessment Edema Edema Absent M9 OT- IP Assessment and Plan Start: 09/30/21 13:49 Freq: Status: Active Protocol: Document 09/30/21 13:49 CGR (Rec: 09/30/21 14:03 CGR [id number]) OT Summary Assessment and Plan Potential Rehabilitation Potential Good Analytic Complexity at Evaluation High Summary OT Impairments Pain,Balance,Coordination, Functional Cognition, Functional Mobility,Grooming, Dressing,Toileting,Bathing, Toilet Transfers,Shower Transfers,Activity Tolerance Progress Towards Goals Slow Progress due to Pain Assessment Summary Pt presents as a high complexity evaluation s/p admit for fall with L displaced rib fx. Pt needs extra time for all mobility, ADLs and cognitive processing at this time. Pt will continue to benefit from OT services and will need SNF upon discharge. Goals Grooming Goal Independent Dressing Goal Independent Toileting Goal Independent Bathing Goal Independent Toilet Transfer Goal Independent Shower Transfer Goal Independent Days to Meet Goals 25 Frequency of Treatment Frequency Of Treatment Once a Day Treatment Plan OT Treatment Plan ADL Training,Functional Cognition Training,Functional Mobility,Patient/Family Education,Discharge Planning Other Treatment Recommendations and Next endurance, ADLs seated Treatment Focus Discharge Recommendations OT Discharge Recommendations SNF Rehab Transportation Needs at Discharge Wheelchair/Cabulance
--- NOTE | 2021-09-30 13:10 | PT-IP ANOTE ---
checked on pt but pt is eating lunch. will check back again later this afternoon.
[2021-09-30] MEDS: ONDANSETRON 4 MG/2 ML INJ IV (13:44)
--- NOTE | 2021-09-30 14:25 | PT.IIE ---
Current Diagnoses Hypo-osmolality and hyponatremia (09/29/21) Medical History (Last Reviewed 09/29/21 @ 20:32 by Dana Simons MD) Hyperlipidemia Hypertension, essential Hypothyroid Left femoral shaft fracture Multiple sclerosis Physical Therapy Inpatient Evaluation/Re-Eval M1 PT/OT-IP Prior Functional Status Start: 09/30/21 13:49 Freq: NEEDED Status: Active Protocol: Document 09/30/21 14:25 AB (Rec: 09/30/21 16:50 AB [id number]) Medical Review Prior Functional Status Medical History Reviewed Yes Communication able to make needs known; [place] has hearing aids Mobility and Gait pt stated that she is modified independent with all mobilities and ambulation using 4WW indoors and FWW outdoor mobility. Pt has h/o falls Social History Household Members children Living Arrangements Alf Facility Number of Floors (Floors) One Floor Number of Stairs To Enter/Railing? no stairs to enter Home Environment Standard Height Toilet,Walk in Shower Home Equipment Front Wheel Walker,Four Wheel Walker,Raised Toilet Seat w/ Armrests,Shower Seat without Backrest,Hand Held Shower,Grab Bars In Shower Employment Status Retired Additional Social History Comment pt lives with her daughter but will not be able to provide assistance to pt due to her own medical issues pt stated that there is a caregiver that comes in once a week to assist with house her mails and bills M2 PT-IP Current Condition Start: 09/30/21 16:35 Freq: NEEDED Status: Active Protocol: Document 09/30/21 14:25 AB (Rec: 09/30/21 16:50 AB [email or web address]) Physical Therapy Current Condition Current Condition Evaluation Date 09/30/21 Treatment Diagnosis GLF; rib fx; difficulty in walking Onset Date 09/29/21 M3 PT-IP Subjective Start: 09/30/21 16:35 Freq: NEEDED Status: Active Protocol: Document 09/30/21 14:25 AB (Rec: 09/30/21 16:50 AB [id number]) Subjective Physical Therapy Visit Type Type Initial Evaluation Visit Start Time 14:25 Visit Stop Time 15:24 Total Visit Minutes 59 Number of RESOURCE DEVELOPMENT DIRECTOR Visits 0 Physical Therapy Visit Comments Patient Comments agreed to do PT Therapy Pain Assessment Pain When Pain Assessed During Mobility Location Right Lateral Chest Scale Used pain scale not stated Description Spasm Pain Management Techniques Distraction,Re-positioning, Timing of Activity with Medications M4 PT-IP Mobility and Gait Start: 09/30/21 16:35 Freq: NEEDED Status: Active Protocol: Document 09/30/21 14:25 AB (Rec: 09/30/21 16:50 AB [id number]) PT-Bed Mobility Assessment Supine to Sit Supine to Sit Minimal Assistance,Bedrails Sit to Supine Sit to Supine Minimal Assistance,Bedrails PT-Transfer Assessment Sit to and From Stand Sit to and from Stand Maximum Assistance,1 Person Assistance,Use of Upper Extremities Equipment Transfer Assistive Device Gait Belt,Front Wheeled Walker Orthotic/Prosthetic Devices or Brace: No Transfers Transfer Destination Bed,Chair Transfer Technique Stand Step Pivot Transfer Ability Level of Assist Moderate Assistance,1 Person Assistance,Use of Upper Extremities Comments Mobility Comments pt sitting on chair and agreed to do PT. completed sit to stand from chair max A and max cues. max A for initial standing with increase posterior trunk lean. step transfer to bed using FWW mod A and cues. Required assist with weight shifting to increase LE elevation and assist with FWW maneuvering especially with turning. pt completed sit <>supine min A and cues. pt required increase time to complete all tasks. completed sit to stand from EOB max A and cues and ambulated ~ 8 ft using FWw mod A and max cues. pt sat back on chair. Max cues for instructions and safety. positioned pt on chair. call light and table placed within reach. Gait Assessment Gait Gait Assistance Required: Moderate Assistance,1 Person Assist Distance (Feet) 8 Able to Maintain Weight Bearing Status Yes During Gait Assistive Devices Assistive Device Gait Belt,Front Wheeled Walker Orthotic/Prosthetic Devices or Brace: No Gait Deviations General Gait Pattern Decreased Stride Length, Decreased Feet Clearance,Step- to Gait Factors Limiting Gait Function Factors Limiting Gait Function Decreased Activity Tolerance, Decreased Strength,Difficulty Following Directions,Limited Range of Motion,Pain,Poor Balance,Poor Safety Awareness PT-Balance Assessment Sitting Balance and Reactions Static Sitting Balance Ability Good Dynamic Sitting Balance Ability Fair Standing Balance and Reactions Static Standing Balance Ability Poor Dynamic Standing Balance Ability Poor Device Used FWW M5 PT-IP Objective Assessments Start: 09/30/21 16:35 Freq: NEEDED Status: Active Protocol: Document 09/30/21 14:25 AB (Rec: 09/30/21 16:50 AB [id number]) Orientation Orientation/Cognition Level of Alertness Alert Orientation Name,Place,Situation Language Function Ability Hard of Hearing Safety Awareness Decreased Safety Awareness Gross Range of Motion Lower Extremity ROM Assessment Within Functional Limits Strength Lower Extremity Strength Assessment Left Impaired Hip 4-/5 Knee 4-/5 Sensation Assessment Sensation Gross Sensation WNL M6 PT-IP Treatment Start: 09/30/21 16:35 Freq: NEEDED Status: Active Protocol: Document 09/30/21 14:25 AB (Rec: 09/30/21 16:50 AB [id number]) Physical Therapy Treatment Education Education Provided Safety M7 PT-IP Assessment and Plan Start: 09/30/21 16:35 Freq: NEEDED Status: Active Protocol: Document 09/30/21 14:25 AB (Rec: 09/30/21 16:50 AB [email or web address]) PT Summary Assessment and Plan Potential Rehabilitation Potential Fair Status of Condition at Evaluation Evolving Summary Impairments Pain,ROM,Strength,Balance, Coordination,Sensation,Tone, Cognition,Bed Mobility, Transfers,Gait,Activity Tolerance Assessment Summary pt requiring max A with sit to stand and max A with initial standing for steadiness and mod A for ambulation using FWW requiring increase time to complete all tasks. pt has h/ o falls and needs to be more independent than current level to safely go back home. Pt will need SNF rehab at this time. Goals Bed Mobility Goal Standby Assistance Transfer Goal Standby Assistance,Front Wheeled Walker,Four Wheeled Walker Gait Goal Standby Assistance,Front Wheel Walker,Four Wheel Walker Gait Distance 150 Days to Meet Goals 10 Frequency of Treatment Frequency Of Treatment Once a Day Treatment Plan Physical Therapy Treatment Plan Bed Mobility Training,Transfer Training,Gait Training, Therapeutic Exercise,Balance Retraining,Discharge Planning, Hot or Cold Pack,Neuromuscular Re-ed,Coordination Retraining Recommendations To Nursing Amount of Assist Needed 1 Person Assist Discharge Recommendations PT Discharge Recommendations SNF Rehab Transportation Needs at Discharge Wheelchair/Cabulance
--- NOTE | 2021-09-30 14:27 | P.PN_ITS ---
Subjective Subjective Date Patient Seen: 09/30/21 Time Patient Seen: 08:15 Interval history: improved pain control after morphine. No shortness of breath, dizziness. Feels weak. Exam Vital Signs (past 8 hours): - 09/30/21 09:47 09/30/21 10:25 Temperature 97.3 F L Pulse Rate 57 L 59 L Respiratory Rate 16 Blood Pressure 129/48 L 117/52 L Pulse Oximetry 97 Oxygen Delivery Method Room Air Oxygen Flow Rate 0 Narrative Exam Narrative: pleasant frail elderly female lying in bed uncomfortable with pain HENMT Other:?NC/AT, Sclera anicteric, oropharynx clear, neck supple, Chest Other:?left chest wall tender to palpation as well as right chest well, patient with active guarding when breathing or moving Resp Other:?Lungs: clear to auscultation Cardio Other:?RRR nl Sl S2 GI Other:?abd: soft/ non tender/ non distended Skin Other:?multiple wounds on lower extremites. compression bandages in place Neuro Other:?awake, alert, and appropriate Cranial nerves 2-12 intact Strength symmetric and equal in upper and lower extremities Sensation grossly intact Gait is not assessed Extrem Other:?no edema, Psych Other:?No hallucinations or thought distortions Objective Labs Result Diagrams: 09/29/21 14:26 09/30/21 04:55 Labs: Laboratory Results - last 24 hr 09/29/21 09/29/21 09/29/21 14:26 14:26 16:03 WBC 8.4 RBC 4.01 Hgb 12.1 Hct 36.6 MCV 91.2 MCH 30.2 MCHC 33.1 RDW 14.5 Plt Count 184 Neut % (Auto) 84.2 H Lymph % (Auto) 6.9 L [place] % (Auto) 7.6 Eos % (Auto) 0.5 L Baso % (Auto) 0.8 Neut # (Auto) 7100 H Lymph # (Auto) 600 L Louis[place] # (Auto) 600 Eos # (Auto) 0 Baso # (Auto) 100 Sodium 129 L Potassium 4.7 Chloride 98 Carbon Dioxide 24 BUN 23 H Creatinine 0.72 Estimated GFR > 60.0 BUN/Creatinine Ratio 31.9 H Glucose 122 H Calcium 9.4 Total Bilirubin 0.6 AST 50 H ALT 22 Alkaline Phosphatase 74 Total Creatine Kinase 50 Total Protein 7.3 Albumin 4.0 Globulin 3.3 Albumin/Globulin Ratio 1.2 SARS-CoV-2 (PCR) Negative 09/30/21 04:55 WBC RBC Hgb Hct MCV MCH MCHC RDW Plt Count Neut % (Auto) Lymph % (Auto) Louis[place] % (Auto) Eos % (Auto) Baso % (Auto) Neut # (Auto) Lymph # (Auto) Louisa # (Auto) Eos # (Auto) Baso # (Auto) Sodium 133 L Potassium 4.7 Chloride 97 L Carbon Dioxide 32 BUN 19 H Creatinine 0.96 Estimated GFR 55.4 L BUN/Creatinine Ratio 19.8 Glucose 96 Calcium 9.2 Total Bilirubin AST ALT Alkaline Phosphatase Total Creatine Kinase Total Protein Albumin Globulin Albumin/Globulin Ratio SARS-CoV-2 (PCR) [facility] Medical History (Updated 09/29/21 @ 23:36 by Gabbie Verde RN) Hyperlipidemia Hypertension, essential Hypothyroid Left femoral shaft fracture Multiple sclerosis Surgical History H/O cataract removal with insertion of prosthetic lens H/O esophageal hernia repair Family History Father Asthma Mother Colon cancer Social History household members: children Smoking Status: Former smoker alcohol intake: current Assessment & Plan Assessment & Plan narrative: 86 y/o female with a history of multiple sclerosis, hypertension, hyperlipidemia, hyponatremia admitted to the hospital following a ground level fall -Patient with multiple rib fractures on CT imaging, likely both new and old -CT of cervical spine reveal T4 wedge deformity -Acute mildly displaced fracture of the 7th rib anterolaterally -multiple healed bilateral rib fractures -multiple compression frctures redemonstrated within the thoracic and lumbar spine -Patient with significant pain and mobility issues -will continue tylenol, lidoderm patch, morphine for pain, cyclobenzaprine for spasms -PT/OT appreciated -may need SNF at discharge, care management looking into possibilities. Hypertension -blood pressure with suboptimal control -control pain -continue losartan Hypothyroidism -continue Levothyroxine Osteoporosis -likely contributing to multiple fractures -needs vit D and bisphosphonate, -start Calcium and Vit D now -defer bisphosphonate as outpatient Multiple Sclerosis -not on treatment currently Hyponatremia, mild -free water restriction -follow closely Lower extremity ulcer/wounds -continue current wound care Patient on lovenox for DVT prophylaxis She reports she is DNR/DNI Her Grandson is her surrogate decision maker Time Spent With Patient Critical Care time: I spent a total of [] minutes of critical care time on this patient's care today; this time is exclusive of procedural time.
[2021-09-30 14:30] VITALS: BP 104/49; PULSE 59; RESP 18; TEMP 36.6; O2SAT 100
[2021-09-30 20:00] VITALS: BP 104/45; PULSE 55; RESP 18; TEMP 36.4; O2SAT 100
[2021-09-30] MEDS: PRAMIPEXOLE 0.25 MG TABLET PO (21:34)
[2021-09-30] MEDS: PRAMIPEXOLE 1 MG TABLET 0.5 MG PO (21:34)
[2021-09-30] MEDS: SODIUM CHLORIDE 0.9% FLUSH 10 ML IV (21:35)
[2021-10-01] VITALS (8 sets, daily range): BP systolic 82–209; BP diastolic 34–107; PULSE 52–63; RESP 16–20; TEMP 36.5–36.9; O2SAT 94–98
[2021-10-01] MEDS: LEVOTHYROXINE 112 MCG TABLET PO (06:14)
[2021-10-01] MEDS: PRAMIPEXOLE 0.25 MG TABLET 0.75 MG PO ×3 (06:16→22:27)
[2021-10-01] MEDS: ASPIRIN EC 81 MG TABLET PO (08:43)
[2021-10-01] MEDS: DOCUSATE 100 MG CAPSULE PO ×2 (08:43→20:39)
[2021-10-01] MEDS: LOSARTAN 25 MG TABLET PO (08:44)
[2021-10-01] MEDS: CALCIUM CARBONATE 500 MG TAB PO ×2 (08:44→20:39)
[2021-10-01] MEDS: CHOLECALCIFEROL (VITAMIN D3) 1,000 UNIT TABLET 2000 UNIT PO (08:44)
[2021-10-01] MEDS: LIDOCAINE PATCH 1 EACH ADH..PATCH TOP (08:44)
[2021-10-01] MEDS: OXYCODONE IR 5 MG TABLET PO ×3 (08:44→20:47)
[2021-10-01] MEDS: ENOXAPARIN 40 MG/0.4 ML SYRINGE SUBCUT (08:44)
[2021-10-01] MEDS: SODIUM CHLORIDE 0.9% FLUSH 10 ML IV ×2 (08:57→22:44)
--- NOTE | 2021-10-01 09:39 | CM.DPC ---
Addendum entered by Laura Shaffer R.N. 10/01/21 15:52: Spoke to patient, and she indicated, she would be willing to pay privately, she has $200.000 saved up if needed, but would hope that her insurance would cover it. Did let her know that the cost of [facility] is approximately $400.00 a day, with 30 days down. Asked her if she would consider going back to [facility] with Home Health, but does not feel that it would be a safe environment for her. Will continue to work on getting patient to [facility]. Yadira is working in admissions this week-end, may follow up with her in case auth comes in later. Addendum entered by Laura Shaffer R.N. 10/01/21 15:44: Called Swapna back at [facility] and she indicated that she still has not heard back from [employer]. She indicated that she has left 3 voice mails, and faxed request. This employment case manager has also called insurance. Other option may be for patient to go home with home health, but it is uncertain at this time if this is a safe plan. Addendum entered by Laura Shaffer R.N. 10/01/21 13:18: This marketing planner also called insurance company, they are through [employer]. Called the main member ship number, regarding patient needing intermediate. She gave an alternate phone number for provider services, and was not able to contact anyone. Called Swapna at [facility] and asked her how she contacted them. She indicated that she calls a phone number where there is a voice mail. Number is: [phone]. This employment case manager also left a voice mail message as well, this is for the [place] employment case manager. Swapna indicated that they usually will get a fax back with an authorization number. P.T. will be working with patient again this afternoon. It is uncertain if auth will be received today, asked Swapna if she may know by tomorrow, and she indicated, she possibly could. Will continue to work on placement Original Note: SUSAN Cont: Swapna at [facility] is still working on skilled authorization. This employment case manager attempted to call her insurance company, but was unable to talk to a live person. P: SUSAN will continue to work on getting patient placed at [facility]. She is not eligable for waiver, since she is a managed Medicare, and deemed unsafe to return to [facility]. Laura Shaffer RN/Welder Helper
[2021-10-01] MEDS: GENTAMICIN 0.1% CREAM 30 GM 1 APPLIC TOP (11:56)
[2021-10-01] MEDS: CYCLOBENZAPRINE 10 MG TABLET 5 MG PO (11:56)
--- NOTE | 2021-10-01 12:47 | OT.IP.TRT ---
Current Diagnoses Hypo-osmolality and hyponatremia (09/29/21) Occupational Therapy Treatment Note M2 OT-IP Current Condition Start: 09/30/21 13:49 Freq: Status: Active Protocol: Document 09/30/21 13:49 CGR (Rec: 09/30/21 14:03 CGR [id number]) Occupational Therapy Current Condition Current Condition Evaluation Date 09/30/21 Treatment Diagnosis fall with L 7th displaced rib fx. Diagnosis Onset Date 09/29/21 M3 OT- IP Subjective and Pain Start: 09/30/21 13:49 Freq: Status: Active Protocol: Document 10/01/21 13:06 [facility] (Rec: 10/01/21 13:24 [facility] [id number]) OT- Subjective Occupational Therapy Visit Type Type Treatment Note Visit Start Time 12:08 Visit Stop Time 12:47 Total Visit Minutes 39 Occupational Therapy Visit Comments Patient Comments Pt agreed to get up and also agreed to sponge off. OT Pain Assessment Pain When Pain Assessed At Rest Pain Present Pain Present Pain Reported M4 OT- IP ADL's Start: 09/30/21 13:49 Freq: Status: Active Protocol: Document 10/01/21 13:06 [facility] (Rec: 10/01/21 13:24 [facility] [id number]) OT ADL-Dressing General Eval Lower Body Dressing Ability Maximum Assistance Areas Needing Assistance Socks Comments OT Dressing Comments Able to show and practice use of sock aid and supply officer. OT ADL-Bathing Bathing Type Bathing Type Sponge Bath General Evaluation Bathing Ability MAX Assistance Areas Needing Assistance Wash/Dry Back,Wash/Dry Perineal Area Comments OT Bathing Comments Pt able to assist to wash her chest and arms on her own while seated in the recliner. M6 OT- IP Functional Cognition Start: 09/30/21 13:49 Freq: Status: Active Protocol: Document 10/01/21 13:06 [facility] (Rec: 10/01/21 13:24 [facility] [id number]) Cognitive Factors Limiting Selfcare Function Cognitive Comments Cognitive Assessment Comments Pt needing cues for safety for transitions, when to place her hands on the FWW and armrests of the recliner. M7 OT- IP Mobility and Balance Start: 09/30/21 13:49 Freq: Status: Active Protocol: Document 10/01/21 13:06 [facility] (Rec: 10/01/21 13:24 [facility] [id number]) OT- Bed Mobility Assessment Supine to Sit Supine to Sit Assist Moderate Assistance,Head of Bed Elevated,Bedrails Scooting Scooting to Edge of Bed Contact Guard Assistance OT-Transfer Assessment Sit to and From Stand Sit to and from Stand Moderate Assistance,1 Person Assistance Transfers Transfer Ability Moderate Assistance,1 Person Assistance Technique Transfer Destination Bed,Chair Transfer Technique Stand Step Pivot Devices Transfer Assistive Devices Gait Belt,Front Wheeled Walker Comments Mobility Comments Pt able to come to stand with MODA X1 and assist to steadying as pt unable to get her feet underneath her initially due to not able to bend her left knee very well due to arthritis. MODA x1 with FWW for transfer. OT- Balance Assessment Sitting Balance and Reactions Static Sitting Balance Ability Good Dynamic Sitting Balance Ability Fair Standing Balance and Reactions Static Standing Balance Ability Poor M8 OT- IP Objective Assessments Start: 09/30/21 13:49 Freq: Status: Active Protocol: Document 09/30/21 13:49 [facility] (Rec: 09/30/21 14:03 [facility] [id number]) OT Gross Range of Motion Upper Extremity Range of Motion Assessment Within Functional Limits OT Strength Upper Extremity Strength Assessment Within Functional Limits Comments Strength Comments grossly 4-/5 OT- Coordination Assessment Upper Extremity Finger to Nose Test Bilateral UE Impaired Finger Tapping Test Bilateral UE Impaired Comments Coordination Comments pt had difficulty with fine motor likely d/t medication at this time. OT-Muscle Tone Assessment Muscle Tone WNL Yes OT Sensation Assessment Edema Edema Absent M9 OT- IP Assessment and Plan Start: 09/30/21 13:49 Freq: Status: Active Protocol: Document 10/01/21 13:06 [facility] (Rec: 10/01/21 13:24 [facility] [id number]) OT Summary Assessment and Plan Potential Rehabilitation Potential Good Analytic Complexity at Evaluation High Summary OT Impairments Pain,Balance,Coordination, Functional Cognition, Functional Mobility,Grooming, Dressing,Toileting,Bathing, Toilet Transfers,Shower Transfers,Activity Tolerance Progress Towards Goals Slow Progress due to Pain,Slow Progress due to Medical Issues,Slow Progress due to Activity Tolerance Assessment Summary Pt able to participate in sponge bath today . Pt also able to practice use of LB dressing equipment to increase her independence with her ADl needs. Pt will benefit from skilled rehab when medically stable. Goals Grooming Goal Independent Dressing Goal Independent Toileting Goal Independent Bathing Goal Independent Toilet Transfer Goal Independent Shower Transfer Goal Independent Days to Meet Goals 24 Frequency of Treatment Frequency Of Treatment Once a Day Treatment Plan OT Treatment Plan ADL Training,Functional Cognition Training,Functional Mobility,Patient/Family Education,Discharge Planning Other Treatment Recommendations and Next Stand at sink with recliner Treatment Focus behind her fro grooming needs. Discharge Recommendations OT Discharge Recommendations SNF Rehab Transportation Needs at Discharge Wheelchair/Cabulance
--- NOTE | 2021-10-01 14:18 | PM.PN.1 ---
Subjective Subjective Date Patient Seen: 10/01/21 Time Patient Seen: 14:18 Interval history: No shortness of breath, dizziness. Feels weak. Still struggling with pain control. Exam Vital Signs (past 8 hours): - 10/01/21 08:00 10/01/21 08:52 10/01/21 13:17 Temperature 97.7 F 98.4 F Pulse Rate 58 L 63 Respiratory Rate 20 17 Blood Pressure 209/107 H 129/51 L 124/51 L Pulse Oximetry 98 98 Oxygen Delivery Method Room Air Oxygen Flow Rate 0 Narrative Exam Narrative: pleasant frail elderly female lying in bed uncomfortable with pain HENMT Other:?NC/AT, Sclera anicteric, oropharynx clear, neck supple, Chest Other:?left chest wall tender to palpation as well as right chest well, improved movement today Resp Other:?Lungs: clear to auscultation Cardio Other:?RRR nl Sl S2 GI Other:?abd: soft/ non tender/ non distended Skin Other:?multiple wounds on lower extremites. compression bandages in place Neuro Other:?awake, alert, and appropriate Cranial nerves 2-12 intact Strength symmetric and equal in upper and lower extremities Sensation grossly intact Gait is not assessed Extrem Other:?no edema, Psych Other:?No hallucinations or thought distortions Objective Labs Result Diagrams: 09/29/21 14:26 09/30/21 04:55 [facility] Medical History (Updated 09/29/21 @ 23:36 by Gabbie Verde RN) Hyperlipidemia Hypertension, essential Hypothyroid Left femoral shaft fracture Multiple sclerosis Surgical History H/O cataract removal with insertion of prosthetic lens H/O esophageal hernia repair Family History Father Asthma Mother Colon cancer Social History household members: children Smoking Status: Former smoker alcohol intake: current Assessment & Plan Assessment & Plan narrative: 86 y/o female with a history of multiple sclerosis, hypertension, hyperlipidemia, hyponatremia admitted to the hospital following a ground level fall -Patient with multiple rib fractures on CT imaging, likely both new and old -CT of cervical spine reveal T4 wedge deformity -Acute mildly displaced fracture of the 7th rib anterolaterally -multiple healed bilateral rib fractures -multiple compression frctures redemonstrated within the thoracic and lumbar spine -Patient with significant pain and mobility issues -will continue tylenol, lidoderm patch, morphine for pain, cyclobenzaprine for spasms. Will try and add fentanyl patch today given still uncontrolled pain. -PT/OT appreciated -may need SNF at discharge, care management looking into possibilities. Hypertension -blood pressure with suboptimal control -control pain -continue losartan Hypothyroidism -continue Levothyroxine Osteoporosis -likely contributing to multiple fractures -needs vit D and bisphosphonate, -start Calcium and Vit D now -defer bisphosphonate as outpatient Multiple Sclerosis -not on treatment currently Hyponatremia, mild -free water restriction -follow closely Lower extremity ulcer/wounds -continue current wound care Patient on lovenox for DVT prophylaxis She reports she is DNR/DNI Her Grandson is her surrogate decision maker Time Spent With Patient Critical Care time: I spent a total of [] minutes of critical care time on this patient's care today; this time is exclusive of procedural time.
--- NOTE | 2021-10-01 15:05 | PC.NURSE ---
Changed dressing to bilat lower extremities per MD order,patient tolerated well.
--- NOTE | 2021-10-01 15:29 | PT-IP ANOTE ---
Per nurse, pt just got back to bed and has a lot of pain and will be given a fantnyl patch and will not be able to do PT at this time. will f/u tomorrow.
[2021-10-01] MEDS: ACETAMINOPHEN 325 MG TABLET 975 MG PO ×2 (15:55→22:26)
[2021-10-01] MEDS: fentaNYL 12 MCG/PATCH TOP (15:55)
[2021-10-01] MEDS: ATORVASTATIN 20 MG TABLET 10 MG PO (20:39)
[2021-10-01] MEDS: MORPHINE 4 MG/ML INJ IV (20:52)
[2021-10-02 02:00] VITALS: BP 106/44; PULSE 56; RESP 18; TEMP 37.1; O2SAT 98
[2021-10-02] MEDS: CYCLOBENZAPRINE 10 MG TABLET 5 MG PO ×2 (05:00→12:30)
[2021-10-02 05:30] VITALS: BP 115/48; PULSE 58; RESP 18; TEMP 37.1; O2SAT 97
[2021-10-02 06:13] LABS: BUN Creatinine Ratio 24.8 (6-22); Blood Urea Nitrogen 34 mg/dL (7-17); Calcium 8.8 mg/dL (8.4-10.2); Carbon Dioxide 30 mmol/L (22-32); Chloride 95 mmol/L (98-107); Estimated Glomerular Filt Rate 36.7 mL/min (>60); Glucose 90 mg/dL (80-110); HEMOLYSIS < 15 (0-50); Magnesium 1.9 mg/dL (1.6-2.3); Potassium 4.9 mmol/L (3.4-5.1); Sodium 130 mmol/L (137-145)
[2021-10-02] MEDS: ACETAMINOPHEN 325 MG TABLET 975 MG PO ×3 (06:54→22:24)
[2021-10-02] MEDS: PRAMIPEXOLE 0.25 MG TABLET 0.75 MG PO ×3 (06:55→22:23)
[2021-10-02] MEDS: LEVOTHYROXINE 112 MCG TABLET PO (06:58)
[2021-10-02 08:20] VITALS: BP 109/46; PULSE 54; RESP 18; TEMP 36.7; O2SAT 96
[2021-10-02] MEDS: CHOLECALCIFEROL (VITAMIN D3) 1,000 UNIT TABLET 2000 UNIT PO (09:14)
[2021-10-02] MEDS: CALCIUM CARBONATE 500 MG TAB PO ×2 (09:14→21:13)
[2021-10-02] MEDS: ASPIRIN EC 81 MG TABLET PO (09:14)
[2021-10-02] MEDS: DOCUSATE 100 MG CAPSULE PO ×2 (09:14→21:13)
[2021-10-02] MEDS: LIDOCAINE PATCH 1 EACH ADH..PATCH TOP (09:15)
[2021-10-02] MEDS: SODIUM CHLORIDE 0.9% FLUSH 10 ML IV ×2 (09:16→21:13)
[2021-10-02 09:17] VITALS: BP 115/48; PULSE 58
[2021-10-02] MEDS: GENTAMICIN 0.1% CREAM 30 GM 1 APPLIC TOP (09:18)
--- NOTE | 2021-10-02 09:20 | PC.NURSE ---
Addendum entered by Eufemia Cullen R.N. 10/02/21 17:08: Patient repositioned. Patient rates pain 4/10 and as uncomfortable but tolerable at this time. Addendum entered by Eufemia Cullen R.N. 10/02/21 14:18: Patient reports that whatever you gave me helped when asked about pain. Patient was given Flexeril earlier. Still bracing her R ribs with hand. When asked about spasms the patient reports there are none at this time. Still no BM at this time, patient denies abdominal discomfort. Denies further needs. Call light in reach, SCD's remain on bilaterally. Addendum entered by Eufemia Cullen R.N. 10/02/21 11:54: Administered Milk of Mag to patient d/t distended RLQ and patient's complaints of feeling constipated. BT active in RLQ. Assisted patient to swallow, avoided using straw. Patient does not open eyes during conversation though she reports spasms in R rib area. Discussed pain medication. MD in to see patient, aware of abdomen and pain control. Will continue to follow. Original Note: MD aware of low BP and HR, given verbal to hold morning Losartan 25mg. Patient c/o pain in right ribs, lidocaine patch applied, currently on RA, denies SOB. Lungs diminished, CTA. Mcdonald catheter draining w/o complication. Patient reports she does not remember her last BM, ABD is mildly distended, firm mass palpable on R side. Will follow up. Denies further needs at this time. Call light in reach.
[2021-10-02] MEDS: MAGNESIUM HYDROXIDE 30 ML UDC PO (12:01)
--- NOTE | 2021-10-02 14:49 | PT.IPTN ---
Current Diagnoses Hypo-osmolality and hyponatremia (09/29/21) Physical Therapy Treatment Note M2 PT-IP Current Condition Start: 09/30/21 16:35 Freq: NEEDED Status: Active Protocol: Document 09/30/21 14:25 AB (Rec: 09/30/21 16:50 AB [id number]) Physical Therapy Current Condition Current Condition Evaluation Date 09/30/21 Treatment Diagnosis GLF; rib fx; difficulty in walking Onset Date 09/29/21 M3 PT-IP Subjective Start: 09/30/21 16:35 Freq: NEEDED Status: Active Protocol: Document 10/02/21 14:25 KS (Rec: 10/02/21 15:33 KS [id number]) Subjective Physical Therapy Visit Type Type Treatment Note Visit Start Time 14:25 Visit Stop Time 14:49 Total Visit Minutes 24 Number of DROP HAMMER OPERATOR HELPER Visits 1 Physical Therapy Visit Comments Patient Comments agreed to do PT M4 PT-IP Mobility and Gait Start: 09/30/21 16:35 Freq: NEEDED Status: Active Protocol: Document 10/02/21 14:25 KS (Rec: 10/02/21 15:33 KS [id number]) PT-Bed Mobility Assessment Scooting Scooting Up and Down in Bed Moderate Assistance PT-Transfer Assessment Comments Mobility Comments Pt refused getting out of bed this PM, but agreed to LE exercises in bed to improve blood flow and facilitate strengthening. Pt able to complete 2x10 ankle pumps, quad sets, glute sets, and heel slides and 1x10 SLR w/ verbal and tactile cues. Pt reported some fatigue, but overall tolerated well, still disagreeing with transfer to chair. Mod A and cues for repositioning to get pt comfortable in bed. Gait Assessment Comments Gait Comments Not assessed, pt refused. PT-Balance Assessment Sitting Balance and Reactions Static Sitting Balance Ability Good Dynamic Sitting Balance Ability Fair Standing Balance and Reactions Static Standing Balance Ability Poor Dynamic Standing Balance Ability Poor Device Used FWW M5 PT-IP Objective Assessments Start: 09/30/21 16:35 Freq: NEEDED Status: Active Protocol: Document 09/30/21 14:25 AB (Rec: 09/30/21 16:50 AB [id number]) Orientation Orientation/Cognition Level of Alertness Alert Orientation Name,Place,Situation Language Function Ability Hard of Hearing Safety Awareness Decreased Safety Awareness Gross Range of Motion Lower Extremity ROM Assessment Within Functional Limits Strength Lower Extremity Strength Assessment Left Impaired Hip 4-/5 Knee 4-/5 Sensation Assessment Sensation Gross Sensation WNL M6 PT-IP Treatment Start: 09/30/21 16:35 Freq: NEEDED Status: Active Protocol: Document 10/02/21 14:25 KS (Rec: 10/02/21 15:33 KS [id number]) Physical Therapy Treatment Exercises Exercises Ankle Pumps,Gluteal Sets,Quad Sets,Heel Slides,Straight Leg Raises Education Education Provided Safety M7 PT-IP Assessment and Plan Start: 09/30/21 16:35 Freq: NEEDED Status: Active Protocol: Document 10/02/21 14:25 KS (Rec: 10/02/21 15:33 KS [id number]) PT Summary Assessment and Plan Potential Rehabilitation Potential Fair Status of Condition at Evaluation Evolving Summary Impairments Pain,ROM,Strength,Balance, Coordination,Sensation,Tone, Cognition,Bed Mobility, Transfers,Gait,Activity Tolerance Assessment Summary Pt refused to get out of bed this PM, but was able to complete LE strengthening exercises w/ verbal and tactile cues. Mod A for repositioning in bed. With fall history and current level of weakness, pt will require SNF to improve strength and functional independence and mobility. Goals Bed Mobility Goal Standby Assistance Transfer Goal Standby Assistance,Front Wheeled Walker,Four Wheeled Walker Gait Goal Standby Assistance,Front Wheel Walker,Four Wheel Walker Gait Distance 150 Days to Meet Goals 10 Frequency of Treatment Frequency Of Treatment Once a Day Treatment Plan Physical Therapy Treatment Plan Bed Mobility Training,Transfer Training,Gait Training, Therapeutic Exercise,Balance Retraining,Discharge Planning, Hot or Cold Pack,Neuromuscular Re-ed,Coordination Retraining Recommendations To Nursing Amount of Assist Needed 1 Person Assist Discharge Recommendations PT Discharge Recommendations SNF Rehab Transportation Needs at Discharge Wheelchair/Cabulance
--- NOTE | 2021-10-02 15:15 | PM.PN.1 ---
Subjective Subjective Date Patient Seen: 10/02/21 Time Patient Seen: 15:16 Interval history: No shortness of breath, dizziness. Feels weak. Still struggling with pain control. Exam Vital Signs (past 8 hours): - 10/02/21 08:20 10/02/21 09:17 Temperature 98.0 F Pulse Rate 54 L 58 L Respiratory Rate 18 Blood Pressure 109/46 L 115/48 L Pulse Oximetry 96 Oxygen Delivery Method Room Air Oxygen Flow Rate 0 Narrative Exam Narrative: pleasant frail elderly female lying in bed uncomfortable with pain HENMT Other:?NC/AT, Sclera anicteric, oropharynx clear, neck supple, Chest Other:?left chest wall tender to palpation as well as right chest well. Resp Other:?Lungs: clear to auscultation Cardio Other:?RRR nl Sl S2 GI Other:?abd: soft/ non tender/ non distended. Firmness in RUQ. Skin Other:?multiple wounds on lower extremites, stable Neuro Other:?awake, alert, and appropriate Cranial nerves 2-12 intact Strength symmetric and equal in upper and lower extremities Sensation grossly intact Gait is not assessed Extrem Other:?no edema, Psych Other:?No hallucinations or thought distortions Objective Labs Result Diagrams: 09/29/21 14:26 10/02/21 05:32 Labs: Laboratory Results - last 24 hr 10/02/21 05:32 Sodium 130 L Potassium 4.9 Chloride 95 L Carbon Dioxide 30 BUN 34 H Creatinine 1.37 H Estimated GFR 36.7 L BUN/Creatinine Ratio 24.8 H Glucose 90 Calcium 8.8 Magnesium 1.9 [facility] Medical History (Updated 09/29/21 @ 23:36 by Gbabie Verde RN) Hyperlipidemia Hypertension, essential Hypothyroid Left femoral shaft fracture Multiple sclerosis Surgical History H/O cataract removal with insertion of prosthetic lens H/O esophageal hernia repair Family History Father Asthma Mother Colon cancer Social History household members: children Smoking Status: Former smoker alcohol intake: current Assessment & Plan Assessment & Plan narrative: 86 y/o female with a history of multiple sclerosis, hypertension, hyperlipidemia, hyponatremia admitted to the hospital following a ground level fall -Patient with multiple rib fractures on CT imaging, likely both new and old -CT of cervical spine reveal T4 wedge deformity -Acute mildly displaced fracture of the 7th rib anterolaterally -multiple healed bilateral rib fractures -multiple compression frctures redemonstrated within the thoracic and lumbar spine -Patient with significant pain and mobility issues -will continue tylenol, lidoderm patch, morphine for pain, cyclobenzaprine for spasms. Will try and add fentanyl patch today given still uncontrolled pain. -PT/OT appreciated -may need SNF at discharge, care management looking into possibilities. Hypertension -blood pressure with suboptimal control -control pain -continue losartan Hypothyroidism -continue Levothyroxine Osteoporosis -likely contributing to multiple fractures -needs vit D and bisphosphonate, -start Calcium and Vit D now -defer bisphosphonate as outpatient Multiple Sclerosis -not on treatment currently Hyponatremia, mild -free water restriction -follow closely Lower extremity ulcer/wounds -continue current wound care Patient on lovenox for DVT prophylaxis She reports she is DNR/DNI Her Grandson is her surrogate decision maker Time Spent With Patient Critical Care time: I spent a total of [] minutes of critical care time on this patient's care today; this time is exclusive of procedural time.
[2021-10-02 15:55] VITALS: BP 110/44; PULSE 63; RESP 15; TEMP 36.6; O2SAT 97
[2021-10-02 20:10] VITALS: BP 114/39; PULSE 61; RESP 18; TEMP 37; O2SAT 96
[2021-10-02] MEDS: ATORVASTATIN 20 MG TABLET 10 MG PO (21:13)
--- NOTE | 2021-10-02 23:08 | PC.NURSE ---
Patient is alert and oriented except did not know day of month. Is very sleepy and can be difficult to arouse needing to have name called frequently and then touching/shaking of arm before she awakens. Breath sounds diminished and respirations are shallow; RA sat is 96%. Does have pain in right ribs and has increased discomfort with deep breaths. HRR. Denies nausea. BT present and is passing flatus but has not had BM since 09/29; did receive MOM on previous shift and Colace. Indwelling catheter is patent; urine is clear, yellow. Needs assistance to reposition due to pain. Dressings to bilateral medial ankles and left dorsal foot are CDI. Wearing bilateral DARIO stockings as well as calf SCD's. Stated pain was 5/10 when scheduled Tylenol given; ice pack applied as well and now appears to be asleep with FLACC of 0. Fall risk score is high and bed alarm is activated.
[2021-10-03] VITALS (7 sets, daily range): BP systolic 102–118; BP diastolic 43–55; PULSE 51–60; RESP 14–18; TEMP 36.3–36.8; O2SAT 96–100
[2021-10-03] MEDS: OXYCODONE IR 5 MG TABLET PO ×3 (05:28→22:29)
[2021-10-03] MEDS: LEVOTHYROXINE 112 MCG TABLET PO (05:28)
[2021-10-03 06:05] LABS: BUN Creatinine Ratio 42.2 (6-22); Blood Urea Nitrogen 38 mg/dL (7-17); Calcium 9.2 mg/dL (8.4-10.2); Carbon Dioxide 30 mmol/L (22-32); Chloride 98 mmol/L (98-107); Estimated Glomerular Filt Rate 59.7 mL/min (>60); Glucose 81 mg/dL (80-110); HEMOLYSIS < 15 (0-50); Magnesium 2.1 mg/dL (1.6-2.3); Sodium 131 mmol/L (137-145)
[2021-10-03] MEDS: PRAMIPEXOLE 0.25 MG TABLET 0.75 MG PO ×3 (06:25→22:22)
[2021-10-03] MEDS: ACETAMINOPHEN 325 MG TABLET 975 MG PO ×3 (06:26→22:22)
[2021-10-03] MEDS: CYCLOBENZAPRINE 10 MG TABLET 5 MG PO (07:48)
[2021-10-03] MEDS: GENTAMICIN 0.1% CREAM 30 GM 1 APPLIC TOP (08:58)
[2021-10-03] MEDS: ENOXAPARIN 30 MG/0.3 ML SYRINGE SUBCUT (08:58)
[2021-10-03] MEDS: CHOLECALCIFEROL (VITAMIN D3) 1,000 UNIT TABLET 2000 UNIT PO (08:59)
[2021-10-03] MEDS: ASPIRIN EC 81 MG TABLET PO (08:59)
[2021-10-03] MEDS: CALCIUM CARBONATE 500 MG TAB PO ×2 (08:59→22:21)
[2021-10-03] MEDS: DOCUSATE 100 MG CAPSULE PO ×2 (08:59→22:21)
[2021-10-03] MEDS: LIDOCAINE PATCH 1 EACH ADH..PATCH TOP (09:00)
[2021-10-03] MEDS: SODIUM CHLORIDE 0.9% FLUSH 10 ML IV ×2 (09:00→22:22)
--- NOTE | 2021-10-03 10:56 | PM.PN.1 ---
Subjective Subjective Date Patient Seen: 10/03/21 Time Patient Seen: 10:56 Interval history: No shortness of breath, dizziness. Feels weak. Still struggling with pain control. Exam Vital Signs (past 8 hours): - 10/03/21 04:25 10/03/21 07:48 10/03/21 08:00 Temperature 98.1 F 97.7 F Pulse Rate 51 L 60 55 L Respiratory Rate 18 16 Blood Pressure 105/43 L 107/55 L 107/55 L Pulse Oximetry 97 97 Oxygen Delivery Method Room Air Oxygen Flow Rate 0 Narrative Exam Narrative: pleasant frail elderly female lying in bed uncomfortable with pain HENMT Other:?NC/AT, Sclera anicteric, oropharynx clear, neck supple, Chest Other:?left chest wall tender to palpation as well as right chest well. Resp Other:?Lungs: clear to auscultation Cardio Other:?RRR nl Sl S2 GI Other:?abd: soft/ non tender/ non distended. Firmness in RUQ. Skin Other:?multiple wounds on lower extremites, stable Neuro Other:?awake, alert, and appropriate Cranial nerves 2-12 intact Strength symmetric and equal in upper and lower extremities Sensation grossly intact Gait is not assessed Extrem Other:?no edema, Psych Other:?No hallucinations or thought distortions Objective Labs Result Diagrams: 09/29/21 14:26 10/03/21 05:36 Labs: Laboratory Results - last 24 hr 10/03/21 05:36 Sodium 131 L Potassium 5.0 Chloride 98 Carbon Dioxide 30 BUN 38 H Creatinine 0.90 Estimated GFR 59.7 L BUN/Creatinine Ratio 42.2 H Glucose 81 Calcium 9.2 Magnesium 2.1 [facility] Medical History (Updated 09/29/21 @ 23:36 by Gabbie Verde RN) Hyperlipidemia Hypertension, essential Hypothyroid Left femoral shaft fracture Multiple sclerosis Surgical History H/O cataract removal with insertion of prosthetic lens H/O esophageal hernia repair Family History Father Asthma Mother Colon cancer Social History household members: children Smoking Status: Former smoker alcohol intake: current Assessment & Plan Assessment & Plan narrative: 86 y/o female with a history of multiple sclerosis, hypertension, hyperlipidemia, hyponatremia admitted to the hospital following a ground level fall -Patient with multiple rib fractures on CT imaging, likely both new and old -CT of cervical spine reveal T4 wedge deformity -Acute mildly displaced fracture of the 7th rib anterolaterally -multiple healed bilateral rib fractures -multiple compression frctures redemonstrated within the thoracic and lumbar spine -Patient with significant pain and mobility issues -will continue tylenol, lidoderm patch, morphine for pain, cyclobenzaprine for spasms. Will try and add fentanyl patch today given still uncontrolled pain. -PT/OT appreciated -plan is for SNF at discharge to [facility]. Currently pending insurance authorization. Hypertension -blood pressure with suboptimal control -control pain -continue losartan Hypothyroidism -continue Levothyroxine Osteoporosis -likely contributing to multiple fractures -needs vit D and bisphosphonate, -start Calcium and Vit D now -defer bisphosphonate as outpatient Multiple Sclerosis -not on treatment currently Hyponatremia, mild -free water restriction -follow closely Lower extremity ulcer/wounds -continue current wound care Patient on lovenox for DVT prophylaxis She reports she is DNR/DNI Her Grandson is her surrogate decision maker Dispo: pending insurance authorization for SNF. Time Spent With Patient Critical Care time: I spent a total of [] minutes of critical care time on this patient's care today; this time is exclusive of procedural time.
--- NOTE | 2021-10-03 16:21 | PT.IPTN ---
Current Diagnoses Hypo-osmolality and hyponatremia (09/29/21) Physical Therapy Treatment Note M2 PT-IP Current Condition Start: 09/30/21 16:35 Freq: NEEDED Status: Active Protocol: Document 09/30/21 14:25 AB (Rec: 09/30/21 16:50 AB [email or web address]) Physical Therapy Current Condition Current Condition Evaluation Date 09/30/21 Treatment Diagnosis GLF; rib fx; difficulty in walking Onset Date 09/29/21 M3 PT-IP Subjective Start: 09/30/21 16:35 Freq: NEEDED Status: Active Protocol: Document 10/03/21 16:07 LJ (Rec: 10/03/21 16:21 LJ [id number]) Subjective Physical Therapy Visit Type Type Treatment Note Visit Start Time 15:35 Visit Stop Time 16:05 Total Visit Minutes 30 Number of HOT WORKER Visits 2 Physical Therapy Visit Comments Patient Comments agreed to do PT M4 PT-IP Mobility and Gait Start: 09/30/21 16:35 Freq: NEEDED Status: Active Protocol: Document 10/03/21 16:07 LJ (Rec: 10/03/21 16:21 LJ [id number]) PT-Bed Mobility Assessment Scooting Scooting Up and Down in Bed Standby Assistance PT-Transfer Assessment Sit to and From Stand Sit to and from Stand Moderate Assistance,1 Person Assistance Equipment Transfer Assistive Device Gait Belt,Front Wheeled Walker Orthotic/Prosthetic Devices or Brace: No Transfers Transfer Destination Bed,Chair Transfer Technique ambulated with small lateral then forward steps Transfer Ability Level of Assist Moderate Assistance,1 Person Assistance,Use of Upper Extremities Comments Mobility Comments Pt in bed willing to do PT. With HOB elevated pt able to swimg LEs off side of bed without assistanc other than with Mcdonald. Pt used bed cane/ handle to assist herself to scoot to side of bed. HOT WORKER assisted with donning shoes then pt stood ModA due to retropulsion. Verbal and tactile cueing to assist pt to stand tall. Pt stood for ~1 min then sat on EOB. Pt then repeated sit>sand with Same level of assist and took several steps to chair. Assist with managing FWW. Pt positioned herself in front of the chair then controlled sitting using arm rests. Pt then performed sit>stand again with same level of assist but able to correct posterior lean more quickly. She then performed ~2 minutes of standing marching in front of chair. Pt then did a controlled descent into chair. She was given all needs and left to eat dinner in chair. Gait Assessment Gait Gait Assistance Required: Moderate Assistance,1 Person Assist Distance (Feet) 3 Assistive Devices Assistive Device Gait Belt,Front Wheeled Walker Orthotic/Prosthetic Devices or Brace: No Gait Deviations General Gait Pattern Decreased Stride Length, Decreased Feet Clearance,Step- to Gait Factors Limiting Gait Function Factors Limiting Gait Function Decreased Activity Tolerance, Decreased Strength,Difficulty Following Directions,Limited Range of Motion,Pain,Poor Balance,Poor Safety Awareness Comments Gait Comments Pt refused d/t fear of falling M5 PT-IP Objective Assessments Start: 09/30/21 16:35 Freq: NEEDED Status: Active Protocol: Document 09/30/21 14:25 AB (Rec: 09/30/21 16:50 AB [id number]) Orientation Orientation/Cognition Level of Alertness Alert Orientation Name,Place,Situation Language Function Ability Hard of Hearing Safety Awareness Decreased Safety Awareness Gross Range of Motion Lower Extremity ROM Assessment Within Functional Limits Strength Lower Extremity Strength Assessment Left Impaired Hip 4-/5 Knee 4-/5 Sensation Assessment Sensation Gross Sensation WNL M6 PT-IP Treatment Start: 09/30/21 16:35 Freq: NEEDED Status: Active Protocol: Document 10/03/21 16:07 ANTELMO (Rec: 10/03/21 16:21 [id number]) Physical Therapy Treatment Exercises Exercises Ankle Pumps,Gluteal Sets,Heel Slides Education Education Provided Safety M7 PT-IP Assessment and Plan Start: 09/30/21 16:35 Freq: NEEDED Status: Active Protocol: Document 10/03/21 16:07 ANTELMO (Rec: 10/03/21 16:21 [id number]) PT Summary Assessment and Plan Potential Rehabilitation Potential Fair Status of Condition at Evaluation Evolving Summary Impairments Pain,ROM,Strength,Balance, Coordination,Sensation,Tone, Cognition,Bed Mobility, Transfers,Gait,Activity Tolerance Assessment Summary Pt willing to get out of bed. She wants to move more but is unable and fearful of falling. She was able to perform multiple sit<>stands from bed and chair and stand while marching without right knee buckling. She will benefit from SNF to improve her strength and coordination to reduce fall risk and improve functional independence Goals Bed Mobility Goal Standby Assistance Transfer Goal Standby Assistance,Front Wheeled Walker,Four Wheeled Walker Gait Goal Standby Assistance,Front Wheel Walker,Four Wheel Walker Gait Distance 150 Days to Meet Goals 10 Frequency of Treatment Frequency Of Treatment Once a Day Treatment Plan Physical Therapy Treatment Plan Bed Mobility Training,Transfer Training,Gait Training, Therapeutic Exercise,Balance Retraining,Discharge Planning, Hot or Cold Pack,Neuromuscular Re-ed,Coordination Retraining Recommendations To Nursing Amount of Assist Needed 1 Person Assist Discharge Recommendations PT Discharge Recommendations SNF Rehab Transportation Needs at Discharge Wheelchair/Cabulance
[2021-10-03] MEDS: ATORVASTATIN 20 MG TABLET 10 MG PO (22:21)
--- NOTE | 2021-10-03 23:46 | PC.NURSE ---
SHIFT Report received, care assumed 1930. Patient is hard of hearing and slightly disoriented when woken, but otherwise seems oriented and appropriate. Slumps to the left when sleeping; unclear if this is related to baseline multiple sclerosis or acute pain. Offered repositioning frequently. Slightly hypotensive and bradycardic but asymptomatic and possibly WNL for this patient; VSS. C/o right chest/rib pain; medicated, splinted and repositioned as appropriate. C/o constipation early in shift but was able to complete large bowel movement using bedpan. Mcdonald in place. Venous ulcers x3 on lower extremities not visualized, as dressings are CDI and Teds, SCD's are in place.
[2021-10-04 01:30] VITALS: BP 118/47; PULSE 64; RESP 16; TEMP 36.9; O2SAT 96
[2021-10-04] MEDS: MORPHINE 2 MG/ML INJ IV (01:40)
[2021-10-04 05:00] VITALS: BP 116/48; PULSE 51; RESP 16; TEMP 36.9; O2SAT 99
[2021-10-04] MEDS: PRAMIPEXOLE 0.25 MG TABLET 0.75 MG PO ×2 (05:44→14:27)
[2021-10-04] MEDS: ACETAMINOPHEN 325 MG TABLET 975 MG PO ×2 (05:44→14:18)
[2021-10-04] MEDS: LEVOTHYROXINE 112 MCG TABLET PO (05:44)
[2021-10-04 06:26] LABS: BUN Creatinine Ratio 40.2 (6-22); Blood Urea Nitrogen 39 mg/dL (7-17); Carbon Dioxide 32 mmol/L (22-32); Chloride 96 mmol/L (98-107); Estimated Glomerular Filt Rate 54.7 mL/min (>60); Glucose 95 mg/dL (80-110); HEMOLYSIS < 15 (0-50); Potassium 4.9 mmol/L (3.4-5.1); Sodium 131 mmol/L (137-145)
[2021-10-04 09:00] VITALS: BP 118/45; PULSE 52; RESP 16; TEMP 36.5; O2SAT 97
[2021-10-04] MEDS: LIDOCAINE PATCH 1 EACH ADH..PATCH TOP (10:34)
[2021-10-04] MEDS: GENTAMICIN 0.1% CREAM 30 GM 1 APPLIC TOP (10:35)
[2021-10-04] MEDS: CALCIUM CARBONATE 500 MG TAB PO (10:35)
[2021-10-04] MEDS: CHOLECALCIFEROL (VITAMIN D3) 1,000 UNIT TABLET 2000 UNIT PO (10:36)
[2021-10-04] MEDS: ASPIRIN EC 81 MG TABLET PO (10:36)
[2021-10-04] MEDS: DOCUSATE 100 MG CAPSULE PO (10:36)
[2021-10-04 10:39] VITALS: BP 112/61; PULSE 55
[2021-10-04] MEDS: OXYCODONE IR 5 MG TABLET PO (10:39)
[2021-10-04] MEDS: ENOXAPARIN 30 MG/0.3 ML SYRINGE SUBCUT (10:48)
[2021-10-04] MEDS: SODIUM CHLORIDE 0.9% FLUSH 10 ML IV (10:49)
--- NOTE | 2021-10-04 10:50 | PM.DS.1 ---
History of Present Illness History of Present Illness Chief complaint: GLF 2 nights ago Narrative: Per Dr. Simons: he patient is an 86 y/o female with a history of multiple sclerosis, hypertension, and hypothyrodism who was well until two days prior to admission. The patient uses a walker to ambulate. She was standing at the sink brushing her teeth when she lost her balance as her legs slipped from under her. She fell without loss of consciouness. She does not recall how she fell or what she may have hit going down. The patient continue to have left rib pain and was brought into the ED for evaluation. She was treated as a modified trauma. She underwent multiple imaging studies to include: Chest CT which revealed an acutely mildly displaced fracture of the let 7th rib anterolaterally, there were multiple additional healed bilateral rib fractures as well. There were multiple compression deformities within the thoracic and lumbar spine. Head CT revealed no acute intracranial hemorrahge, no displaced calverial fracture was seen. Cervical Spine CT revealed a new T$ anterior wedge deformity with 40% loss of height anteriorly. Rib xrays revealed fractures of the 9th, 10th, and 11th ribes of uncertain chronicity. No evidence of pneumothorax was identified. WBC 8.4 H/H 12.1/36.6, sodium 129 potassium 4.7, Bun 23, Creatinine .72, Patient continued to have significant pain, was hyponatremic, and felt to be unsafe to return home to independent living. She is admitted under observation for further evaluation. Discharge Providers Provider Date of admission: 09/29/21 17:43 Discharge Date: 10/04/21 Primary care physician: Blayne Sims MD Consults: 09/29/21 20:11 Consult to Discharge Planning Routine Comment: Consult to Occupational Therapy Evaluate & Treat Comment: Physician Instructions: Evaluate and treat Consult to Physical Therapy Evaluate & Treat Comment: Physician Instructions: Evaluate and Treat Discharge provider: Dax Zavala MD Summary Hospital Course Discharge Diagnosis: 1. Ground level fall with multiple rib fractures, acute right 7th rib fracture 2. T4 fracture, and multiple chronic vertebral fracture 3. Hypertension 4. Hypothyroidism 5. Osteoporosis 6. Multiple sclerosis 7. Hyponatremia 8. Lower extremity chronic wounds Hospital Course: Ms. Jacob was admitted after a fall. She was found to have multiple rib fractures on the right, the 7th rib was mildly displaced and acute appearance. She also had multiple other fracture ribs on the right that appeared chronic on imaging, though she had tenderness in the that location when palpated. It was thought those rib fractures may have been acute as well. She was noted to have a T4 fracture in the spine, as well as multiple chronic compression fractures. She was ordered for pain control, and started on fentanyl patch as pain control was difficult. She was also noted to have hyponatremia on admission at 129, it remained mildly low at discharge at 131, she was on fluid restriction in the hospital. She was discharged to SNF for rehab. Exam Vital Signs (past 8 hours): - 10/04/21 05:00 10/04/21 09:00 10/04/21 10:39 Temperature 98.4 F 97.7 F Pulse Rate 51 L 52 L 55 L Respiratory Rate 16 16 Blood Pressure 116/48 L 118/45 L 112/61 Pulse Oximetry 99 97 Oxygen Delivery Method Room Air Oxygen Flow Rate 0 Narrative Exam Narrative: GEN: no acute distress Lungs: clear to auscultation CV: regular rate and rhythm GI: soft, nontender, nondistended Skin: multiple stable wounds on lower extremities Neuro: awake, alert, and appropriate Objective Labs Result Diagrams: 09/29/21 14:26 10/04/21 05:29 Labs: Laboratory Results - last 24 hr 10/04/21 05:29 Sodium 131 L Potassium 4.9 Chloride 96 L Carbon Dioxide 32 BUN 39 H Creatinine 0.97 Estimated GFR 54.7 L BUN/Creatinine Ratio 40.2 H Glucose 95 Calcium 9.0 Magnesium 2.0 PFSH Medical History (Updated 09/29/21 @ 23:36 by Gabbie Verde RN) Hyperlipidemia Hypertension, essential Hypothyroid Left femoral shaft fracture Multiple sclerosis Surgical History H/O cataract removal with insertion of prosthetic lens H/O esophageal hernia repair Family History Father Asthma Mother Colon cancer Social History household members: children Smoking Status: Former smoker alcohol intake: current Discharge Plan Discharge Plan Patient Disposition: SNF Provider Discharge Comment: Ms. Jacob came in with a fall. She had rib fractures and also had vertebral fracture. She was weaker than normal. She was given pain medications. She was discharged to SNF for physical therapy. I certify the [facility] care is medically necessary on a continuing basis for any conditions for which he/ she received care during this hospitalization.: Yes The receiving facility has agreed to accept transfer and provide medical treatment.: Yes Discharge orders & Medications Prescriptions: New acetaminophen 325 mg Tablet 975 mg PO Q8H Qty: 30 RF: 0 lidocaine 5 % Adhesive Patch,Medicated 1 ea topical DAILY Qty: 10 RF: 0 oxycodone 5 mg Tablet 5 mg PO Q4H PRN (Reason: Pain, Moderate (4-6)) Qty: 10 RF: 0 fentanyl 12 mcg/hr Patch 72 Hour 12 mcg topical Q72H Qty: 4 RF: 0 Continued Restasis 0.05 % Dropperette 1 drp OPHTHALMIC (EYE) DIRECTED Qty: 0 RF: 0 aspirin 81 mg Tablet,Delayed Release (Dr/Ec) 81 mg PO DAILY Qty: 0 RF: 0 multivitamin [Multiple Vitamins] 1 EACH tablet 1 tab PO QDAY Qty: 0 RF: 0 ascorbic acid (vitamin C) 500 MG tablet 500 mg PO QDAY Qty: 0 RF: 0 calcium carbonate [Tums] 500 MG tablet,chewable 500 mg PO PRN PRN (Reason: Acid Reflux) Qty: 0 RF: 0 cyanocobalamin (vitamin B-12) [Vitamin B-12] 5,000 MCG tablet, sublingual 5,000 mcg Sublingual QDAY Qty: 0 RF: 0 sennosides [senna] 8.6 MG tablet 8.6 mg PO PRN Qty: 0 RF: 0 tolterodine 4 mg Capsule,Extended Release 24hr 4 mg PO DAILY RF: 0 rosuvastatin 10 mg Tablet 10 mg PO DAILY RF: 0 losartan 25 mg Tablet 50 mg PO DAILY RF: 0 epinastine 0.05 % Drops 1 drp OPHTHALMIC (EYE) BID RF: 0 levothyroxine 112 mcg capsule 112 mcg PO DAILY RF: 0 pramipexole 0.75 mg tablet 0.75 mg PO TID RF: 0 No Action (DME) Respironics Dreamstation CPAP Qty: 1 RF: 0 Follow up/Referrals: Blayne Sims MD [Primary Care Provider] - Discharge Health Status Multidrug resistant organism: No MDRO Diet/Activity/Treatments Diet: Diet as Tolerated Liquid consistency: Normal/Thin Food texture: Regular [facility] Rehab type: Physical therapy and Occupational therapy Discharge Data Primary Care Provider: Blayne Sims V Attending Provider: Dax Zavala
--- NOTE | 2021-10-04 11:55 | CM.DPC ---
DDP Cont: Swapna called and stated that she did get authorization with patient's insurance. She mentioned that they indicated that they would authorize her for 2 days, due to her being reluctant to work with P.T. She idicated, they can reevaluate with her insurance if she works with their P.T. team. This case checker updated patient. Encouraged her to work with P.T, since her insurance will authorize her for 2 days unless she works with nursing home P.T. She indicated, she would, it has been her pain that has been the barrier. Confirmed lemon picker time between [id number]. Patient is aware. COVID swab is pending. Updated nurse, Jony, and white board at main nurses station. Faxed over orders, had hospitalist complete, and faxed over scripts as well. Faxed PASSR, DC Summary, and COVID vaccine information pending COVID swab results. P: Patient is discharging to [facility] today with lemon picker between [id number]. Laura Shaffer RN/[employer]er
[2021-10-04 12:00] VITALS: BP 111/51; PULSE 61; RESP 16; TEMP 36.6; O2SAT 98
--- NOTE | 2021-10-04 12:10 | PT.IPTN ---
Current Diagnoses Hypo-osmolality and hyponatremia (09/29/21) Physical Therapy Treatment Note M2 PT-IP Current Condition Start: 09/30/21 16:35 Freq: NEEDED Status: Active Protocol: Document 09/30/21 14:25 AB (Rec: 09/30/21 16:50 AB [id number]) Physical Therapy Current Condition Current Condition Evaluation Date 09/30/21 Treatment Diagnosis GLF; rib fx; difficulty in walking Onset Date 09/29/21 M3 PT-IP Subjective Start: 09/30/21 16:35 Freq: NEEDED Status: Active Protocol: Document 10/04/21 11:53 KS (Rec: 10/04/21 13:03 KS [id number]) Subjective Physical Therapy Visit Type Type Treatment Note Visit Start Time 11:53 Visit Stop Time 12:10 Total Visit Minutes 17 Number of [employer] Visits 3 Physical Therapy Visit Comments Patient Comments agreed to do PT M4 PT-IP Mobility and Gait Start: 09/30/21 16:35 Freq: NEEDED Status: Active Protocol: Document 10/04/21 11:53 KS (Rec: 10/04/21 13:03 KS [id number]) PT-Bed Mobility Assessment Supine to Sit Supine to Sit Contact Guard Assistance Scooting Scooting to Edge of Bed Minimal Assistance PT-Transfer Assessment Sit to and From Stand Sit to and from Stand Moderate Assistance,1 Person Assistance Equipment Transfer Assistive Device Gait Belt,Front Wheeled Walker Orthotic/Prosthetic Devices or Brace: No Transfers Transfer Destination Chair Transfer Technique Stand Step Pivot Transfer Ability Level of Assist Moderate Assistance,1 Person Assistance,Use of Upper Extremities Comments Mobility Comments Pt in bed and agreeable to transfer to chair for lunch. CGA for sup<>sit w/ HOB elevated and bed handle. Min A for scooting EOB. Pt sit<> stand w/ FWW Mod A max cues and had heavy retrolean upon standing. She then completed stand step pivot to chair Mod A for balance and FWW management, max verbal and tactile cues. Mod A for stand< >sit in chair. Pt able to scoot back in chair w/ use of BUE SBA. Pt left in chair w/ all needs in reach and chair alarm on. Gait Assessment Gait Gait Assistance Required: Moderate Assistance,1 Person Assist Distance (Feet) 3 Assistive Devices Assistive Device Gait Belt,Front Wheeled Walker Orthotic/Prosthetic Devices or Brace: No Gait Deviations General Gait Pattern Decreased Stride Length, Decreased Feet Clearance,Step- to Gait Factors Limiting Gait Function Factors Limiting Gait Function Decreased Activity Tolerance, Decreased Strength,Difficulty Following Directions,Limited Range of Motion,Pain,Poor Balance,Poor Safety Awareness Comments Gait Comments Pt w/ heavy retrolean requiring Mod A and max cues to remain upright. Able to complete stand step pivot Mod A but refused further ambulation due to fear and needed frequent cues to stop leaning back. PT-Balance Assessment Sitting Balance and Reactions Static Sitting Balance Ability Good Dynamic Sitting Balance Ability Fair Standing Balance and Reactions Static Standing Balance Ability Poor Dynamic Standing Balance Ability Poor Device Used FWW M5 PT-IP Objective Assessments Start: 09/30/21 16:35 Freq: NEEDED Status: Active Protocol: Document 09/30/21 14:25 AB (Rec: 09/30/21 16:50 AB [id number]) Orientation Orientation/Cognition Level of Alertness Alert Orientation Name,Place,Situation Language Function Ability Hard of Hearing Safety Awareness Decreased Safety Awareness Gross Range of Motion Lower Extremity ROM Assessment Within Functional Limits Strength Lower Extremity Strength Assessment Left Impaired Hip 4-/5 Knee 4-/5 Sensation Assessment Sensation Gross Sensation WNL M6 PT-IP Treatment Start: 09/30/21 16:35 Freq: NEEDED Status: Active Protocol: Document 10/04/21 11:53 KS (Rec: 10/04/21 13:03 OR [id number]) Physical Therapy Treatment Exercises Exercises Ankle Pumps,Gluteal Sets,Heel Slides Education Education Provided Safety M7 PT-IP Assessment and Plan Start: 09/30/21 16:35 Freq: NEEDED Status: Active Protocol: Document 10/04/21 11:53 KS (Rec: 10/04/21 13:03 OR [id number]) PT Summary Assessment and Plan Potential Rehabilitation Potential Fair Status of Condition at Evaluation Evolving Summary Impairments Pain,ROM,Strength,Balance, Coordination,Sensation,Tone, Cognition,Bed Mobility, Transfers,Gait,Activity Tolerance Assessment Summary Pt showed some improvements w/ bed mobility requring CGA to Min A w/ cues, but continues to require Mod A for sit<> Stand w/ FWW and stand step pivot transfer. She has retrolean and needs verbal and tactile cues to avoid leaning backwards during transfer. Unable to ambulate further due to fear of falling at this time. Pt will require SNF to improve strength and functional mobility and reduce fall risk. Goals Bed Mobility Goal Standby Assistance Transfer Goal Standby Assistance,Front Wheeled Walker,Four Wheeled Walker Gait Goal Standby Assistance,Front Wheel Walker,Four Wheel Walker Gait Distance 150 Days to Meet Goals 10 Frequency of Treatment Frequency Of Treatment Once a Day Treatment Plan Physical Therapy Treatment Plan Bed Mobility Training,Transfer Training,Gait Training, Therapeutic Exercise,Balance Retraining,Discharge Planning, Hot or Cold Pack,Neuromuscular Re-ed,Coordination Retraining Recommendations To Nursing Amount of Assist Needed 1 Person Assist Discharge Recommendations PT Discharge Recommendations SNF Rehab Transportation Needs at Discharge Wheelchair/Cabulance
[2021-10-04 14:14] LABS: COVID19 -Nasal RAPID Negative (Negative)
[2021-10-04] MEDS: CYCLOBENZAPRINE 10 MG TABLET 5 MG PO (14:25)
[2021-10-04] MEDS: fentaNYL 12 MCG/PATCH TOP (14:25)
--- NOTE | 2021-10-04 16:37 | PC.NURSE ---
Discharge to SNF. Report given to Mira at [facility]. Tamara bangura'd per MD order just prior to discharge, brief placed. IV dcd intact. Picked up via wheelchair by facility transport, discharged with all her belongings.
== END 2021-10-04 15:55 ==
LOC: ED 14:24 → AC 17:43
PROVIDERS: Internal Medicine; Admitting Provider Internal Medicine; Emergency Provider Nurse Practitioner Family; PCP Internal Medicine; Referring Provider Nurse Practitioner Family; Visit Provider Internal Medicine
DX: S22.41XA Multiple fractures of ribs, right side, initial encounter for closed fracture (principal); R07.89 Other chest pain; E87.1 Hypo-osmolality and hyponatremia; S22.040A Wedge compression fracture of fourth thoracic vertebra, initial encounter for closed fracture; G35 Multiple sclerosis; W01.198A Fall on same level from slipping, tripping and stumbling with subsequent striking against other object, initial encounter; Y92.002 Bathroom of unspecified non-institutional (private) residence as the place of occurrence of the external cause; Z91.81 History of falling; I10 Essential (primary) hypertension; E03.9 Hypothyroidism, unspecified; Z20.822 Contact with and (suspected) exposure to COVID-19
CPT/HCPCS: 36415; 70450; 71101; 71250; 72125; 80048; 80053; 82550; 83735; 85025; 87635; 96374; 96375; 96376; 97110; 97116; 97162; 97167; 97530; 97535; 99284; 99285; C9803; G0378; J1650; J2270; J2405

== ENCOUNTER → 2021-10-28 14:14 | Outpatient (CLI) | payer OTHER, SELFPAY ==
[2021-09-29 18:01] VITALS: BMI 19.7
== END ==
PROVIDERS: PCP Internal Medicine; Referring Provider Internal Medicine; Visit Provider Family Medicine
DX: I87.2 Venous insufficiency (chronic) (peripheral) (principal); L97.311 Non-pressure chronic ulcer of right ankle limited to breakdown of skin; L95.0 Livedoid vasculitis; I73.9 Peripheral vascular disease, unspecified
CPT/HCPCS: 11042; 87070; 87075; 87205; 99213

== ENCOUNTER → 2021-11-02 13:02 | Outpatient (CLI) | payer OTHER, SELFPAY ==
[2021-09-29 18:01] VITALS: BMI 19.7
== END ==
PROVIDERS: PCP Internal Medicine; Referring Provider Internal Medicine; Visit Provider Family Medicine
DX: I87.2 Venous insufficiency (chronic) (peripheral) (principal); L97.311 Non-pressure chronic ulcer of right ankle limited to breakdown of skin; L95.0 Livedoid vasculitis; I73.9 Peripheral vascular disease, unspecified
CPT/HCPCS: 29581; 99213

== ENCOUNTER → 2021-11-05 13:31 | Outpatient (CLI) | payer OTHER, SELFPAY ==
[2021-09-29 18:01] VITALS: BMI 19.7
--- NOTE | 2021-11-05 13:32 | DI.RAD.S_ITS ---
PROCEDURE: XR CHEST 2V INDICATIONS: rib fx 1 mo ago, fever, chills TECHNIQUE: 2 views of the chest were acquired. COMPARISON: [facility], CT, CT CHEST WO CON, 09/29/2021, 15:04. [facility], CR, XR RIBS RT MIN 3V W CXR 1V, 09/29/2021, 13:47. FINDINGS: Surgical changes and devices: None. Lungs and pleura: Lungs are clear. No pleural effusions or pneumothorax. Mediastinum: Mediastinal contours are normal. Heart size is normal. Bones and chest wall: Previously reported rib fractures not well visualized by dedicated plain film radiograph of the chest. Multiple thoracic spine compression deformities are stable compared to prior CT scan obtained September 29, 2021. No suspicious bony abnormalities. Soft tissues appear unremarkable. IMPRESSION: No acute cardiopulmonary disease process. Dictated by: Mahnaz Resendiz MD, PhD on 11/05/2021 at 14:00 Approved by: Mahnaz Resendiz MD, PhD on 11/05/2021 at 14:05
== END ==
PROVIDERS: PCP Internal Medicine; Referring Provider Physician Assistant; Visit Provider Physician Assistant
DX: R50.9 Fever, unspecified (principal)
CPT/HCPCS: 71046

== ENCOUNTER → 2021-11-09 14:44 | Outpatient (CLI) | payer OTHER, SELFPAY ==
[2021-09-29 18:01] VITALS: BMI 19.7
== END ==
PROVIDERS: PCP Internal Medicine; Referring Provider Internal Medicine; Visit Provider Family Medicine
DX: I87.2 Venous insufficiency (chronic) (peripheral) (principal); L97.311 Non-pressure chronic ulcer of right ankle limited to breakdown of skin; L95.0 Livedoid vasculitis; I73.9 Peripheral vascular disease, unspecified; L89.153 Pressure ulcer of sacral region, stage 3
CPT/HCPCS: 97597; 99213

== ENCOUNTER 2021-11-19 22:23 | Inpatient (IN) | payer MEDICARE, SELFPAY ==
[2021-09-29 18:01] VITALS: BMI 19.7
[2021-11-19] VITALS (7 sets, daily range): BP systolic 150–180; BP diastolic 70–87; PULSE 54–73; RESP 13–22; TEMP 36.7; O2SAT 89–100; BMI 20.5
--- NOTE | 2021-11-19 22:24 | ED_ITS ---
HPI - Weakness General Chief complaint: Fall Stated complaint: glf Time Seen by Provider: 11/19/21 22:23 History of Present Illness HPI Narrative: 86F former smoker with a history of MS, hyperlipidemia, frequent falls, and recent admission for weakness, hyponatremia (129), fall with rib fractures presents by EMS for evaluation of a ground level fall with head injury. She is activated as a modified trauma given her age and possible injury. She states she was feeling a bit week and shakey and fell to the ground from a standing position. She struck her head and has a hematoma. She denies any loss of consciousness, nausea or vomiting. She denies any change in appetite or medications. She is a poor historian and doesnt have much to contribute to her story other then she doesn't feel great. She denies sore throat, cough, or trouble breathing. She denies chest pain, abdominal pain, or change in bowel habits. She's had no dysuria, frequency, or urgency. Related Data Home Medications Medication Instructions Recorded Confirmed aspirin 81 mg tablet,delayed 81 mg PO DAILY #0 05/08/12 11/05/21 release cyclosporine 0.05 % eye drops in a 1 drp OPHTHALMIC (EYE) DIRECTED 05/08/12 11/05/21 dropperette (Restasis) #0 ascorbic acid (vitamin C) 500 mg 500 mg PO QDAY #0 08/14/17 11/05/21 tablet calcium carbonate 200 mg calcium 500 mg PO PRN PRN #0 08/14/17 11/05/21 (500 mg) chewable tablet (Tums) cyanocobalamin (vitamin B-12) 5,000 mcg SUBLINGUAL QDAY #0 08/14/17 11/05/21 5,000 mcg sublingual tablet (Vitamin B-12) multivitamin (Multiple Vitamins) 1 tab PO QDAY #0 08/14/17 11/05/21 sennosides 8.6 mg tablet (senna) 8.6 mg PO PRN #0 02/12/18 11/05/21 levothyroxine 112 mcg capsule 112 mcg PO DAILY 05/28/18 11/05/21 pramipexole 0.75 mg tablet 0.75 mg PO TID 05/28/18 11/05/21 Respironics Dreamstation CPAP #1 ea 04/08/19 11/05/21 epinastine 0.05 % eye drops 1 drp OPHTHALMIC (EYE) BID 11/13/19 11/05/21 losartan 25 mg tablet 50 mg PO DAILY 11/13/19 11/05/21 rosuvastatin 10 mg tablet 10 mg PO DAILY 10/01/21 11/05/21 tolterodine 4 mg capsule,extended 4 mg PO DAILY 10/01/21 11/05/21 release 24 hr Previous Rx's Medication Instructions Recorded acetaminophen 325 mg tablet 975 mg PO Q8H #30 tab 10/04/21 fentanyl 12 mcg/hr transdermal 12 mcg TOPICAL Q72H #4 ea 10/04/21 patch lidocaine 5 % topical patch 1 ea TOPICAL DAILY #10 ea 10/04/21 oxycodone 5 mg tablet 5 mg PO Q4H PRN #10 tab 10/04/21 Allergies Allergy/AdvReac Type Severity Reaction Status Date / Time metoclopramide [From REGLAN] Allergy Severe UNCONTROLBLE Verified 11/05/21 13:16 LIMB MOVEMENTS Penicillins [PENICILLINS] Allergy Unknown RASH Verified 09/29/21 13:41 Sulfa (Sulfonamide Allergy Verified 09/29/21 13:41 Antibiotics) Review of Systems Review of Systems Narrative: GENERAL: See HPI HEENT: Denies sinus pain, ear pain, sore throat, difficulty swallowing, dizziness. RESPIRATORY: Denies dyspnea, cough, wheezing, hemoptysis, sputum. CARDIOVASCULAR: Denies chest pain, palpitations, orthopnea, edema, GASTROINTESTINAL: Denies nausea, vomiting, abdominal pain, diarrhea, constipation, melena. : Denies dysuria, frequency, incontinence, hematuria, urinary retention. MUSCULOSKELETAL: denies weakness, joint pain, or bony pain SKIN: Denies rash, skin lesions, or other NEUROLOGIC: Denies weakness, headache, numbness, change in speech, confusion, seizures, incoordination. PSYCHIATRIC: No concerning psychosocial issues. 12 point review of systems is negative except for those stated above Patient History Medical History (Updated 11/20/21 @ 00:27 by Villa Rose DO) Hyperlipidemia Hypertension, essential Hypothyroid Left femoral shaft fracture Multiple sclerosis Surgical History H/O cataract removal with insertion of prosthetic lens H/O esophageal hernia repair Family History Father Asthma Mother Colon cancer Social History household members: children Smoking Status: Former smoker alcohol intake: current Smoking Status: Former smoker alcohol intake frequency: holidays/special occasions only Substance Use Type: does not use Exam Narrative Exam Narrative: GENERAL: [86] year old patient appears stated age. Frail, thin. GCS 15 HEAD: Occipital hematoma, no laceration or evidence of depressed skull fracture EYES: Pupils equal round and reactive. No hyphema Extraocular motions intact. No scleral icterus. No injection or drainage. ENT: Dry mucous membranes Nose without bleeding, purulent drainage. No nasal septal hematoma Throat without erythema, tonsillar hypertrophy or exudate. Airway patent. NECK: Trachea midline. Non tender, no step-offs or crepitance CARDIOVASCULAR: Regular rate and rhythm without murmurs, gallops, or rubs. RESPIRATORY: Clear to auscultation. Breath sounds equal bilaterally. No wheezes, rales, or rhonchi. GASTROINTESTINAL: Abdomen soft, non-tender, nondistended. EXTREMITIES: No edema or joint tenderness. Small skin tear on right elbow BACK: Nontender without deformity or crepitance. No flank tenderness. NEURO: AOx3, though she is forgetful, and frequently changes her story. CNII-XII grossly in tact SKIN: No rash or erythema of visible areas Initial Vital Signs Initial Vital Signs: Vital Signs Temperature 98.1 F 11/19/21 22:26 Pulse Rate 73 11/19/21 22:26 Respiratory Rate 16 11/19/21 22:26 Blood Pressure 150/72 H 11/19/21 22:26 Pulse Oximetry 99 11/19/21 22:26 Course Orders Ordered: ED Orders 11/19/21 22:25 CT cervical spine wo con Stat CT head/brain wo con Stat 11/19/21 22:26 XR chest 1V Stat 11/19/21 22:35 COVID19 - ADMIT (PROVIDER RELATIONS REPRESENTATIVE swab/PCR) Stat 11/19/21 22:44 EKG-12 Lead Stat 11/19/21 22:45 Complete Blood Count AUTO DIFF Stat Comprehensive Metabolic Panel Stat Lipase Stat Magnesium Stat NT-proBNP (BNP-Adult 18+) Stat Troponin & CK Cardiac Panel Stat 11/19/21 23:00 Blood Culture Stat Discontinued Medications Amoxicillin/Clavulanate Potassium (Amoxicillin/Clav 875/125 Mg) 1 tab PO NOW ONE Stop: 11/20/21 00:33 Last Admin: 11/20/21 00:38 Dose: 1 tab Documented by: Sodium Chloride (Normal Saline 0.9%) 1,000 mls @ 1,000 mls/hr IV BOLUS ONE Stop: 11/19/21 23:24 Last Admin: 11/19/21 23:11 Dose: 1,000 mls/hr Documented by: DARBY Reevaluation(s) Reevaluation #1: patient did well with orthostatics but was weak with ambulation trial and unsteady with walker. She lives at home with daughter, who was unable to help her get up earlier tonight. Vital Signs Vital signs: Vital Signs - 8 hr 11/19/21 22:26 11/19/21 22:27 11/19/21 22:30 Temperature 98.1 F Pulse Rate 73 62 62 Pulse Rate [Orthostatic Lying] Pulse Rate [Orthostatic Sitting] Pulse Rate [Orthostatic Standing] Respiratory Rate 16 Blood Pressure 150/72 H Blood Pressure [Orthostatic Lying] Blood Pressure [Orthostatic Sitting] Blood Pressure [Orthostatic Standing] Pulse Oximetry 99 100 100 11/19/21 22:31 11/19/21 23:00 11/19/21 23:01 Temperature Pulse Rate 54 L 60 Pulse Rate [Orthostatic Lying] Pulse Rate [Orthostatic Sitting] Pulse Rate [Orthostatic Standing] Respiratory Rate 16 22 Blood Pressure 180/87 H 160/70 H Blood Pressure [Orthostatic Lying] Blood Pressure [Orthostatic Sitting] Blood Pressure [Orthostatic Standing] Pulse Oximetry 100 96 94 11/19/21 23:33 11/20/21 00:00 11/20/21 00:20 Temperature Pulse Rate 54 L 54 L 62 Pulse Rate [Orthostatic Lying] Pulse Rate [Orthostatic Sitting] Pulse Rate [Orthostatic Standing] Respiratory Rate 13 30 H 29 H Blood Pressure 172/68 H Blood Pressure [Orthostatic Lying] Blood Pressure [Orthostatic Sitting] Blood Pressure [Orthostatic Standing] Pulse Oximetry 89 L 100 100 11/20/21 00:21 11/20/21 00:23 11/20/21 00:26 Temperature Pulse Rate 67 72 Pulse Rate [Orthostatic Lying] 62 Pulse Rate [Orthostatic Sitting] 64 Pulse Rate [Orthostatic Standing] 71 Respiratory Rate 23 22 Blood Pressure 153/65 H 149/70 H Blood Pressure [Orthostatic Lying] 172/68 H Blood Pressure [Orthostatic Sitting] 153/65 H Blood Pressure [Orthostatic Standing] 149/70 H Pulse Oximetry MDM - Weakness Lab Data Result diagrams: 11/19/21 22:45 11/19/21 22:45 Labs: Lab Results 11/19/21 11/19/21 11/19/21 Range/Units 22:35 22:45 22:45 WBC 6.9 (4.5-11.0) X10^3/uL RBC 3.58 L (4.0-5.2) X10^6/uL Hgb 10.9 L (12.0-16.0) g/dL Hct 32.4 L (36-46) % MCV 90.6 (80-100) fL MCH 30.4 (26-34) PG MCHC 33.6 (30-36) % RDW 16.2 H (11.6-14.8) % Plt Count 167 (150-400) X10^3/uL Neut % (Auto) 79.7 H (50-75) % Lymph % (Auto) 9.9 L (25-40) % [place] % (Auto) 8.0 (3-14) % Eos % (Auto) 1.5 L (2-4) % Baso % (Auto) 0.9 (0-2) % Neut # (Auto) 5500 (9334-5061) /uL Lymph # (Auto) 700 L (9603-8881) /uL [place] # (Auto) 500 (0-900) /uL Eos # (Auto) 100 (0-450) /uL Baso # (Auto) 100 (0-100) /uL Sodium 138 (137-145) mmol/L Potassium 4.3 (3.4-5.1) mmol/L Chloride 106 (98-107) mmol/L Carbon Dioxide 29 (22-32) mmol/L BUN 26 H (7-17) mg/dL Creatinine 0.86 (0.52-1.04) mg/dL Estimated GFR > 60.0 (>60) mL/min BUN/Creatinine Ratio 30.2 H (6-22) Glucose 138 H (80-110) mg/dL Calcium 9.5 (8.4-10.2) mg/dL Magnesium 2.5 H (1.6-2.3) mg/dL Total Bilirubin 0.5 (0.2-1.3) mg/dL AST 44 H (14-36) IU/L ALT 23 (<35) IU/L Alkaline Phosphatase 84 (38-126) U/L Total Creatine Kinase 175 H (30-135) U/L CK-MB (CK-2) 4.87 H (<2.37) ng/mL CK-MB (CK-2) Rel Index 2.8 (1.5-5.0) % Troponin I < 0.012 (0.01-0.034) ng/mL NT-Pro-B Natriuret Pep 278 (<450) pg/mL Total Protein 7.2 (6.3-8.2) g/dL Albumin 4.1 (3.5-5.0) g/dL Globulin 3.1 (1.7-4.1) g/dL Albumin/Globulin Ratio 1.3 (1.0-2.8) Lipase 288 (23-300) U/L SARS-CoV-2 (PCR) Negative (Negative) Point of Care Testing Glucose POC [address] - cervical spine: Radiologist Impression: Launch?Image [address] [address] XRay Report Signed Patient: Dorothy Jacob MR#: [id number] : 1935 Acct:[id number] Age/Sex: 86 / F Date of Service: 11/19/21 Loc: ED Accession Number: [id number] ?? Procedure: XR chest 1V Ordering Provider: Villa Rose D.O. PROCEDURE:? XR CHEST 1V ? INDICATIONS:? fall, weakness ? TECHNIQUE:? One view of the chest was acquired.? ? COMPARISON:? [facility], CR, XR CHEST 2V, 11/05/2021, 13:23. ? FINDINGS:? ? Surgical changes and devices:? None.? ? Lungs and pleura:? Right lower lobe pulmonary infiltrate noted medially.? Assessment limited by rotation. ? Mediastinum:? Mediastinal contours appear normal.? Heart size is normal.? Atherosclerotic vascular calcification noted in the aortic arch. ? Bones and chest wall:? No suspicious bony lesions.? Overlying soft tissues appear unremarkable.? Generalized decrease in osseous mineralization noted. ? IMPRESSION:? Right lower lobe pulmonary infiltrate, consistent with pneumonia. ? ? ? Approved by: North Larios M.D. on 11/19/2021 at 22:44? Chest x-ray: Radiologist Impression: [address] [address] XRay Report Signed Patient: Dorothy Jacob MR#: [id number] : 1935 Acct:[id number] Age/Sex: 86 / F Date of Service: 11/19/21 Loc: ED Accession Number: [id number] ?? Procedure: XR chest 1V Ordering Provider: Villa Rose D.O. PROCEDURE:? XR CHEST 1V ? INDICATIONS:? fall, weakness ? TECHNIQUE:? One view of the chest was acquired.? ? COMPARISON:? [facility], CR, XR CHEST 2V, 11/05/2021, 13:23. ? FINDINGS:? ? Surgical changes and devices:? None.? ? Lungs and pleura:? Right lower lobe pulmonary infiltrate noted medially.? Assessment limited by rotation. ? Mediastinum:? Mediastinal contours appear normal.? Heart size is normal.? Atherosclerotic vascular calcification noted in the aortic arch. ? Bones and chest wall:? No suspicious bony lesions.? Overlying soft tissues appear unremarkable.? Generalized decrease in osseous mineralization noted. ? IMPRESSION:? Right lower lobe pulmonary infiltrate, consistent with pneumonia. ? ? ? Approved by: North Larios M.D. on 11/19/2021 at 22:44? CT scan - head: Radiologist Impression: [address] [address] [address] Scan Report Signed Patient: Dorothy Jacob MR#: [id number] : 1935 Acct:[id number] Age/Sex: 86 / F Date of Service: 11/19/21 Loc: ED Accession Number: [id number] ?? Procedure: CT head/brain wo con Ordering Provider: Villa Rose D.O. PROCEDURE:? CT HEAD/BRAIN WO CON ? INDICATIONS:? fall with head injury ? TECHNIQUE:? Noncontrast 4.5 mm thick angled axial sections acquired from the foramen magnum to the vertex, with coronal and sagittal reformats.? For radiation dose reduction, the following was used:? automated exposure control, adjustment of mA and/or kV according to patient size.? ? COMPARISON:? [facility], CT, CT HEAD/BRAIN WO CON, 09/29/2021, 13:55. ? FINDINGS:? Image quality:? Excellent.? ? CSF spaces:? Basal cisterns are patent.? No extra-axial fluid collections.? Ventricles are normal in size and shape.? ? Brain:? No midline shift.? No intracranial masses or hemorrhage.? [place]-white matter interface is normal.? Moderate cerebral and cerebellar volume loss with multifocal white matter chronic ischemic change noted. ? Skull and face:? Calvarium and visualized facial bones are intact, without suspicious lesions.? Bilateral intraocular lens replacements noted.? Left posterior parietal scalp hematoma ? Sinuses:? Visualized sinuses and mastoids are clear.? ? IMPRESSION:? ? Atrophy and chronic ischemic change without acute hemorrhage or mass effect. ? ? ? Approved by: North Larios M.D. on 11/19/2021 at 23:07? [facility] Narrative Medical decision making narrative: 86F presents with another fall and generalized weakness and failure to thrive. She has no significant fractures noted, head CT is unremarkable. CXR shows RLL PNA. Patient is weak and deconditioned and unwell for return home. She needed significant assistance with ambulation trial even with walker and daughter is unable to provide enough help for patient. Prior to ambulation trial I'd been hopeful for discharge hence my decision to give Augmentin. She will be converted to IV ABX upon admission Discharge Plan Departure Patient Disposition: Admitted As Inpatient Clinical Impression: Right lower lobe pneumonia, Hematoma of occipital region of scalp Admit Date/Time: 11/20/21 00:56 Admit Provider: Guadalupe Chan
--- NOTE | 2021-11-19 22:25 | DI.CT.S_ITS ---
PROCEDURE: CT CERVICAL SPINE WO CON INDICATIONS: fall with head injury TECHNIQUE: Noncontrast 3 mm thick sections acquired from the skull base to the T4 level. Sagittal and coronal reformats were then constructed. For radiation dose reduction, the following was used: automated exposure control, adjustment of mA and/or kV according to patient size. COMPARISON: [facility], CT, CT CHEST WO CON, 09/29/2021, 15:04. [facility], CT, CT CERVICAL SPINE WO CON, 03/22/2021, 13:41. [facility], CT, CT CERVICAL SPINE WO CON, 09/29/2021, 13:55. FINDINGS: Image quality: Excellent. Bones: Multilevel degenerative disc disease and arthropathy results in reversal normal cervical lordosis. There is grade 1 anterior spondylolisthesis at C3-4 C7-T1 as well as wedge-shaped anterior compression fractures at T4 and T7. T7 shows increasing height loss compared to most recent chest CT 09/29/2021, and the T4 compression fracture is stable. Additionally, there are fractures through the T2 and T3 spinous process, stable from most recent cervical spine study 09/29/2021. No evidence of acute fracture or traumatic malalignment. Moderate central stenosis noted at C5-6. Soft tissues: Prevertebral soft tissues are normal in thickness. No paravertebral hematomas. No apical pneumothoraces. IMPRESSION: 1. Acute on chronic T7 wedge-shaped compression fracture has increased in height loss without significant retropulsed fracture fragment 2. Stable T4 compression fracture as well as slightly displaced fractures through the T2 and T3 spinous processes, unchanged from 09/29/2021 3. Multilevel degenerative disc disease and arthropathy results in moderate central stenosis C5-6 and reversal of the normal cervical lordosis, stable Approved by: North Larios M.D. on 11/19/2021 at 23:00
--- NOTE | 2021-11-19 22:25 | DI.CT.S_ITS ---
PROCEDURE: CT HEAD/BRAIN WO CON INDICATIONS: fall with head injury TECHNIQUE: Noncontrast 4.5 mm thick angled axial sections acquired from the foramen magnum to the vertex, with coronal and sagittal reformats. For radiation dose reduction, the following was used: automated exposure control, adjustment of mA and/or kV according to patient size. COMPARISON: [facility], CT, CT HEAD/BRAIN WO CON, 09/29/2021, 13:55. FINDINGS: Image quality: Excellent. CSF spaces: Basal cisterns are patent. No extra-axial fluid collections. Ventricles are normal in size and shape. Brain: No midline shift. No intracranial masses or hemorrhage. [place]-white matter interface is normal. Moderate cerebral and cerebellar volume loss with multifocal white matter chronic ischemic change noted. Skull and face: Calvarium and visualized facial bones are intact, without suspicious lesions. Bilateral intraocular lens replacements noted. Left posterior parietal scalp hematoma Sinuses: Visualized sinuses and mastoids are clear. IMPRESSION: Atrophy and chronic ischemic change without acute hemorrhage or mass effect. Approved by: North Larios M.D. on 11/19/2021 at 23:07
--- NOTE | 2021-11-19 22:26 | DI.RAD.S_ITS ---
PROCEDURE: XR CHEST 1V INDICATIONS: fall, weakness TECHNIQUE: One view of the chest was acquired. COMPARISON: [facility], CR, XR CHEST 2V, 11/05/2021, 13:23. FINDINGS: Surgical changes and devices: None. Lungs and pleura: Right lower lobe pulmonary infiltrate noted medially. Assessment limited by rotation. Mediastinum: Mediastinal contours appear normal. Heart size is normal. Atherosclerotic vascular calcification noted in the aortic arch. Bones and chest wall: No suspicious bony lesions. Overlying soft tissues appear unremarkable. Generalized decrease in osseous mineralization noted. IMPRESSION: Right lower lobe pulmonary infiltrate, consistent with pneumonia. Approved by: North Larios M.D. on 11/19/2021 at 22:44
[2021-11-19] MEDS: SODIUM CHLORIDE 0.9% 1,000 ML 1000 ML IV (23:11)
[2021-11-19 23:20] LABS: Add Manual Diff / Slide Review NO; Basophils Absolute Auto 100 /uL (0-100); Basophils Percent Auto 0.9 % (0-2); Eosinophils Absolute Auto 100 /uL (0-450); Eosinophils Percent Auto 1.5 % (2-4); Hematocrit 32.4 % (36-46); Hemoglobin 10.9 g/dL (12.0-16.0); Lymphocytes Absolute Auto 700 /uL (1100-4500); Lymphocytes Percent Auto 9.9 % (25-40); Mean Corpuscular HGB Conc 33.6 % (30-36); Mean Corpuscular Hemoglobin 30.4 PG (26-34); Mean Corpuscular Volume 90.6 fL (80-100); Monocytes Absolute Auto 500 /uL (0-900); Neutrophils Absolute Auto 5500 /uL (1500-7000); Neutrophils Percent Auto 79.7 % (50-75); Platelet Count 167 X10^3/uL (150-400); Red Blood Cell Count 3.58 X10^6/uL (4.0-5.2); Red Cell Distribution Width 16.2 % (11.6-14.8); White Blood Cell Count 6.9 X10^3/uL (4.5-11.0)
[2021-11-19 23:23] LABS: Alanine Aminotransferase 23 IU/L (<35); Albumin 4.1 g/dL (3.5-5.0); Albumin Globulin Ratio 1.3 (1.0-2.8); Alkaline Phosphatase 84 U/L (38-126); Aspartate Aminotransferase 44 IU/L (14-36); BUN Creatinine Ratio 30.2 (6-22); Bilirubin Total 0.5 mg/dL (0.2-1.3); Blood Urea Nitrogen 26 mg/dL (7-17); Calcium 9.5 mg/dL (8.4-10.2); Carbon Dioxide 29 mmol/L (22-32); Chloride 106 mmol/L (98-107); Creatine Kinase 175 U/L (30-135); Estimated Glomerular Filt Rate > 60.0 mL/min (>60); Globulin 3.1 g/dL (1.7-4.1); Glucose 138 mg/dL (80-110); HEMOLYSIS 15 (0-50); Lipase 288 U/L (23-300); Magnesium 2.5 mg/dL (1.6-2.3); Potassium 4.3 mmol/L (3.4-5.1); Sodium 138 mmol/L (137-145); Total Protein 7.2 g/dL (6.3-8.2)
--- NOTE | 2021-11-19 23:31 | PC.NURSE ---
Agree with charting/assessment by Oniel Lipscomb
[2021-11-19 23:34] LABS: NT-proBNP (BNP-Adult 18+) 278 pg/mL (<450); Troponin I < 0.012 ng/mL (0.01-0.034)
[2021-11-19 23:38] LABS: CKMB % Relative Index 2.8 % (1.5-5.0); Creatine Kinase MB 4.87 ng/mL (<2.37)
[2021-11-19 23:53] LABS: COVID19 - ADMIT (NP swab/PCR) Negative (Negative)
[2021-11-20] VITALS (14 sets, daily range): BP systolic 125–172; BP diastolic 44–84; PULSE 49–72; RESP 15–30; TEMP 36.8–37.2; O2SAT 99–100; BMI 20.4
[2021-11-20] MEDS: AMOXICILLIN/CLAV 875/125 MG 1 TAB PO (00:38)
--- NOTE | 2021-11-20 01:44 | P.HP_ITS ---
History of Present Illness History of Present Illness Date Patient Seen: 11/20/21 Time Patient Seen: 00:45 Chief complaint: glf Narrative: Dorothy Meade an 86-year-old female resident of [facility] with a history of multiple sclerosis, restless leg syndrome, and multiple orthopedic fractures and osteoporosis presented to the emergency department after a fall she sustained this evening. She is quite debilitated and per the emergency department provider she was too weak to ambulate independently and found to have a left lower lobe pneumonia. The patient states that she lives in a 1 bedroom apartment with her daughter and she occupies the living room. She stated that she was in the kitchen and apparently fell and hit the back of her head. She states she is supposed to have home health nursing come in and see her every other day for wound care. She states that the daughter does not help her out because the daughter has health issues herself. She states that her grandson is her power of reproduction machine loader. Her main concerns today are generalized weakness, she denies fever sweats or chills, denies difficulty breathing, chest pain, nausea vomiting, abdominal pain, she states she has multiple wounds on her legs and is concerned about the bump on her head. She does endorse having significant restless legs and when she was at the rehab facility, she stated that they would not give it to her. The emergency department called the daughter to have the patient transported back home and was informed that she could not come and get her. When they attempted to ambulate her with a walker she also failed a walk test. CT of the C-spine indicated multilevel degenerative disc disease, grade 1 anterior spondylolisthesis at C3 to for, C7-T1, a wedge-shaped anterior compression fracture at T4 and T7. The T7 compression fracture showed increasing height loss compared to the most recent CT of September 29, 2021 and the T4 compressions fracture has not changed. There are also fractures through T2 and T3 spinous process also seen on September 29, [address] of the head only reported atrophy and chronic ischemic changes with no acute hemorrhage or mass effect. Chest x-ray indicated a right lower lobe pulmonary infiltrate consistent with pneumonia. Patient's vital signs are unremarkable, she is mildly anemic with a hemoglobin of 10.9 and hematocrit of 32.4, platelet count is 167, mildly elevated glucose of 138, magnesium 2.5, AST 44, total CK 175, CK- MB 4.87, troponin within normal limits, and COVID-19 PCR is negative. Patient History Medical History Hyperlipidemia Hypertension, essential Hypothyroid Left femoral shaft fracture Multiple sclerosis Surgical History H/O cataract removal with insertion of prosthetic lens H/O esophageal hernia repair Family & Social History Family History Father Asthma Mother Colon cancer Social History: household members children Safety & Behavioral: Feels Safe in Current Yes Environment Been Physically Hurt or No Threatened By a Person Tobacco & Substance use: Tobacco type cigarettes Smoking Status Former smoker alcohol intake current alcohol intake frequency holiday/special occasion Substance Use Type does not use Meds Home Medications and Allergies Home Medications Medication Instructions Recorded Confirmed Type aspirin 81 mg tablet,delayed 81 mg PO DAILY #0 05/08/12 11/05/21 History release cyclosporine 0.05 % eye drops in a 1 drp OPHTHALMIC (EYE) DIRECTED 05/08/12 11/05/21 History dropperette (Restasis) #0 ascorbic acid (vitamin C) 500 mg 500 mg PO QDAY #0 08/14/17 11/05/21 History tablet calcium carbonate 200 mg calcium 500 mg PO PRN PRN #0 08/14/17 11/05/21 History (500 mg) chewable tablet (Tums) cyanocobalamin (vitamin B-12) 5,000 mcg SUBLINGUAL QDAY #0 08/14/17 11/05/21 History 5,000 mcg sublingual tablet (Vitamin B-12) multivitamin (Multiple Vitamins) 1 tab PO QDAY #0 08/14/17 11/05/21 History sennosides 8.6 mg tablet (senna) 8.6 mg PO PRN #0 02/12/18 11/05/21 History levothyroxine 112 mcg capsule 112 mcg PO DAILY 05/28/18 11/05/21 History pramipexole 0.75 mg tablet 0.75 mg PO TID 05/28/18 11/20/21 History Respironics Dreamstation CPAP #1 ea 04/08/19 11/05/21 History epinastine 0.05 % eye drops 1 drp OPHTHALMIC (EYE) BID 11/13/19 11/05/21 History losartan 25 mg tablet 50 mg PO DAILY 11/13/19 11/20/21 History rosuvastatin 10 mg tablet 10 mg PO DAILY 10/01/21 11/05/21 History tolterodine 4 mg capsule,extended 4 mg PO DAILY 10/01/21 11/05/21 History release 24 hr acetaminophen 325 mg tablet 975 mg PO Q8H #30 tab 10/04/21 11/05/21 Rx fentanyl 12 mcg/hr transdermal 12 mcg TOPICAL Q72H #4 ea 10/04/21 11/05/21 Rx patch lidocaine 5 % topical patch 1 ea TOPICAL DAILY #10 ea 10/04/21 11/05/21 Rx oxycodone 5 mg tablet 5 mg PO Q4H PRN #10 tab 10/04/21 11/05/21 Rx Allergies Allergy/AdvReac Type Severity Reaction Status Date / Time metoclopramide [From REGLAN] Allergy Severe UNCONTROLBLE Verified 11/05/21 13:16 LIMB MOVEMENTS Penicillins [PENICILLINS] Allergy Unknown RASH Verified 09/29/21 13:41 Sulfa (Sulfonamide Allergy Verified 09/29/21 13:41 Antibiotics) Review of Systems Review of Systems ROS: Yes All systems reviewed with the patient and are negative except as otherwise documented Exam Vital Signs (past 8 hours): - 11/19/21 22:26 11/19/21 22:27 11/19/21 22:30 Temperature 98.1 F Pulse Rate 73 62 62 Pulse Rate [Orthostatic Lying] Pulse Rate [Orthostatic Sitting] Pulse Rate [Orthostatic Standing] Respiratory Rate 16 Blood Pressure 150/72 H Blood Pressure [Orthostatic Lying] Blood Pressure [Orthostatic Sitting] Blood Pressure [Orthostatic Standing] Pulse Oximetry 99 100 100 11/19/21 22:31 11/19/21 23:00 11/19/21 23:01 Temperature Pulse Rate 54 L 60 Pulse Rate [Orthostatic Lying] Pulse Rate [Orthostatic Sitting] Pulse Rate [Orthostatic Standing] Respiratory Rate 16 22 Blood Pressure 180/87 H 160/70 H Blood Pressure [Orthostatic Lying] Blood Pressure [Orthostatic Sitting] Blood Pressure [Orthostatic Standing] Pulse Oximetry 100 96 94 11/19/21 23:33 11/20/21 00:00 11/20/21 00:20 Temperature Pulse Rate 54 L 54 L 62 Pulse Rate [Orthostatic Lying] Pulse Rate [Orthostatic Sitting] Pulse Rate [Orthostatic Standing] Respiratory Rate 13 30 H 29 H Blood Pressure 172/68 H Blood Pressure [Orthostatic Lying] Blood Pressure [Orthostatic Sitting] Blood Pressure [Orthostatic Standing] Pulse Oximetry 89 L 100 100 11/20/21 00:21 11/20/21 00:23 11/20/21 00:26 Temperature Pulse Rate 67 72 Pulse Rate [Orthostatic Lying] 62 Pulse Rate [Orthostatic Sitting] 64 Pulse Rate [Orthostatic Standing] 71 Respiratory Rate 23 22 Blood Pressure 153/65 H 149/70 H Blood Pressure [Orthostatic Lying] 172/68 H Blood Pressure [Orthostatic Sitting] 153/65 H Blood Pressure [Orthostatic Standing] 149/70 H Pulse Oximetry Oxygen Delivery Method Room Air Narrative Exam Narrative: Gen: Alert, oriented, chronically ill appearing 86 y.o. female, very hard of hearing HEENT: Approximately 2 cm swelling on occipital portion right side, conjunctiva clear, sclera non-icteric, oral mucosa dry w/dark substance around her lips Neck: supple, full ROM, no JVD, trachea is midline Resp: Lungs CTA, non-labored breathing CV: RRR, no murmur or rubs Abd: soft, non-tender, normoactive BTs Skin: multiple ulcers and excoriations, skin is thin and friable. Superficial bleeding flap injury to lower right forearm, multiple healed ulcers on both legs and buttocks. Healing scratch injury to left lower left abdominal quadrant. Toenails on feet are hypertrophic and yellowed. Neuro: Wears hearing aids and is very [place]. Alert and oriented X 4 w/no focal deficits. Speech clear and coherent. Extremities: moves all 4 extremities, is normally ambulatory with a walker but failed ambulation trial, negative Maribel's sign Psyche: normal mood and affect. Objective Labs Result Diagrams: 11/19/21 22:45 11/19/21 22:45 Labs: Laboratory Results - last 24 hr 11/19/21 11/19/21 11/19/21 22:35 22:45 22:45 WBC 6.9 RBC 3.58 L Hgb 10.9 L Hct 32.4 L MCV 90.6 MCH 30.4 MCHC 33.6 RDW 16.2 H Plt Count 167 Neut % (Auto) 79.7 H Lymph % (Auto) 9.9 L [place] % (Auto) 8.0 Eos % (Auto) 1.5 L Baso % (Auto) 0.9 Neut # (Auto) 5500 Lymph # (Auto) 700 L [place] # (Auto) 500 Eos # (Auto) 100 Baso # (Auto) 100 Sodium 138 Potassium 4.3 Chloride 106 Carbon Dioxide 29 BUN 26 H Creatinine 0.86 Estimated GFR > 60.0 BUN/Creatinine Ratio 30.2 H Glucose 138 H Calcium 9.5 Magnesium 2.5 H Total Bilirubin 0.5 AST 44 H ALT 23 Alkaline Phosphatase 84 Total Creatine Kinase 175 H CK-MB (CK-2) 4.87 H CK-MB (CK-2) Rel Index 2.8 Troponin I < 0.012 NT-Pro-B Natriuret Pep 278 Total Protein 7.2 Albumin 4.1 Globulin 3.1 Albumin/Globulin Ratio 1.3 Lipase 288 SARS-CoV-2 (PCR) Negative Assessment & Plan Assessment & Plan narrative: Dorothy Jacob is admitted for management a left lower lobe pneumonia, chronic wounds and generalized debility. 1. Left Lower lobe pneumonia, acute, present on admission * started IV ceftriaxone 1 g daily appear. In the ED she was given Augmentin one time dose because they had anticipated a home discharge. 2. Occipital hematoma, acute, present on admission * CT did not indicated any acute findings, will treat for pain and monitor for signs of infection 3. Chronic wounds * will place graduated compression hose on the patient * wound care for areas around right lower forearm, left-side of abdomen, bilateral leg ulcers of varying stages, and foot care 4. Hypertension * continue losartan 25 mg daily 5. Hypothyroidism * continue home dose of levothyroxine 112 mcg po daily 6. Osteoporosis * likely contributing to multiple fractures * needs vit D and bisphosphonate, * start Calcium 600 and Vit D3 5000 units daily * defer bisphosphonate as outpatient 7. Multiple Sclerosis * not on treatment currently VTE Prophylaxis: Wells risk score 1.5 Enoxaparin 40 mg subQ once daily graduated compression hose for wounds. Patient is admitted to the inpatient service due to the severity of disease, risks of further disease progression and this stay is expected to exceed 2 midnights. FEN: IV fluids: NS at 100 ml/hour, diet: Heart healty, labs: CBC, C/BMP, liver enzymes, Mag, PT/INR Consultants None Dispo: Unknown at this time, she is clearly unsafe in her current situation Code status: DNR/DNI as discussed with the patient who identifies her son-in-law her surrogate and POA. [X] I have utilized all available immediate resources to obtain, update, or review of the patient's current medications COVID-19 COVID-19 status: Negative Result date/Date tested (Pos, Neg/Pending): 11/20/21 Time Spent With Patient Critical Care time: I spent a total of [] minutes of critical care time on this patient's care today; this time is exclusive of procedural time. Scores Wells' Criteria for PE Clinical signs and symptoms of DVT: No PE is #1 Dx or equally likely: No Heart rate > 100: No Immobilization at least 3 days or surg in previous 4 weeks: Yes History of PE or DVT: No Hemoptysis: No Malignancy w/Treatment within 6 months or palliative: No Wells' PE Score total: 1.5 Quality VTE Deep Vein Thrombosis/Pulmonary Embolism Present on Admission: No MIPS - Admit I confirm the patient?s Advance Care Plan is present, Code status is documented, Surrogate decision maker is in patient?s record [If Yes, STOP here]: Yes MIPS - DC The patient has current or prior documentation of left ventricular ejection fraction (LVEF) less than 40%, or moderate or severely depressed left ventricular systolic function.: No
[2021-11-20] MEDS: fentaNYL 12 MCG/PATCH TOP (03:04)
[2021-11-20] MEDS: SODIUM CHLORIDE 0.45% 1,000 ML 100 ML IV (03:07)
[2021-11-20] MEDS: DOXYCYCLINE 100 MG in SODIUM CHLORIDE 0.9% 100 ML IV ×2 (03:07→14:26)
[2021-11-20] MEDS: SODIUM CHLORIDE 0.9% 1,000 ML 100 ML IV (04:32)
[2021-11-20 05:19] LABS: Add Manual Diff / Slide Review NO; Basophils Absolute Auto 100 /uL (0-100); Eosinophils Absolute Auto 100 /uL (0-450); Eosinophils Percent Auto 2.1 % (2-4); Hematocrit 31.2 % (36-46); Hemoglobin 10.4 g/dL (12.0-16.0); Lymphocytes Absolute Auto 600 /uL (1100-4500); Lymphocytes Percent Auto 10.3 % (25-40); Mean Corpuscular HGB Conc 33.2 % (30-36); Mean Corpuscular Volume 90.2 fL (80-100); Monocytes Absolute Auto 600 /uL (0-900); Monocytes Percent Auto 9.1 % (3-14); Neutrophils Absolute Auto 4900 /uL (1500-7000); Neutrophils Percent Auto 77.5 % (50-75); Platelet Count 141 X10^3/uL (150-400); Red Blood Cell Count 3.46 X10^6/uL (4.0-5.2); Red Cell Distribution Width 16.2 % (11.6-14.8); White Blood Cell Count 6.3 X10^3/uL (4.5-11.0)
[2021-11-20 05:28] LABS: Alanine Aminotransferase 19 IU/L (<35); Albumin 3.4 g/dL (3.5-5.0); Albumin Globulin Ratio 1.3 (1.0-2.8); Alkaline Phosphatase 74 U/L (38-126); Aspartate Aminotransferase 38 IU/L (14-36); BUN Creatinine Ratio 28.8 (6-22); Bilirubin Total 0.4 mg/dL (0.2-1.3); Bilirubin Unconjugated 0.5 mg/dL (0.0-1.1); Blood Urea Nitrogen 21 mg/dL (7-17); Calcium 9.1 mg/dL (8.4-10.2); Carbon Dioxide 28 mmol/L (22-32); Chloride 108 mmol/L (98-107); Estimated Glomerular Filt Rate > 60.0 mL/min (>60); Globulin 2.7 g/dL (1.7-4.1); Glucose 101 mg/dL (80-110); HEMOLYSIS < 15 (0-50); Magnesium 2.2 mg/dL (1.6-2.3); Sodium 137 mmol/L (137-145); Total Protein 6.1 g/dL (6.3-8.2)
[2021-11-20] MEDS: LEVOTHYROXINE 112 MCG TABLET PO (06:05)
[2021-11-20] MEDS: CALCIUM CARBONATE 600 MG TABLET PO (08:54)
[2021-11-20] MEDS: AZITHROMYCIN 250 MG TABLET 500 MG PO (08:54)
[2021-11-20] MEDS: LOSARTAN 25 MG TABLET PO (08:55)
[2021-11-20] MEDS: ENOXAPARIN 30 MG/0.3 ML SYRINGE SUBCUT (08:55)
[2021-11-20] MEDS: OXYBUTYNIN 5 MG TABLET PO (08:56)
[2021-11-20] MEDS: CHOLECALCIFEROL (VITAMIN D3) 5,000 UNIT TABLET 5000 UNIT PO (10:47)
--- NOTE | 2021-11-20 10:49 | PT.IIE ---
Current Diagnoses Pneumonia, unspecified organism (11/20/21) Medical History (Last Reviewed 11/20/21 @ 02:33 by ADRIANA Brower) Hyperlipidemia Hypertension, essential Hypothyroid Left femoral shaft fracture Multiple sclerosis Physical Therapy Inpatient Evaluation/Re-Eval M1 PT/OT-IP Prior Functional Status Start: 11/20/21 09:38 Freq: Status: Active Protocol: Document 11/20/21 10:27 MB (Rec: 11/20/21 10:48 MB [id number]) Medical Review Prior Functional Status Medical History Reviewed Yes Communication As far as diet, pt states that she had several bottom teeth extracted the beginning of October and she cannot always eat the food at the [facility] . She is slow to respond, speaks slowly and states that she needs her glasses and hearing aides that are still at [facility]. She does communicate needs. Mobility and Gait She mobilizes with RW and rollator, per pt, though she does not move around a lot Activities of Daily Living and IADL's She has been taking sponge baths since previous adm, SNF, and reports of wounds on sacrum and LLE. Social History Living Arrangements Jail Facility Number of Floors (Floors) One Floor Number of Stairs To Enter/Railing? Accessible, lives at [facility] I living Home Equipment Front Wheel Walker,Four Wheel Walker,Bedside Commode Employment Status Retired M2 PT-IP Current Condition Start: 11/20/21 09:38 Freq: Status: Active Protocol: Document 11/20/21 10:27 MB (Rec: 11/20/21 10:48 MB [id number]) Physical Therapy Current Condition Current Condition Evaluation Date 11/20/21 Treatment Diagnosis Decreased mobility s/p GLF, thoracic compression fxs, subacute wound issues M3 PT-IP Subjective Start: 11/20/21 09:38 Freq: Status: Active Protocol: Document 11/20/21 10:27 MB (Rec: 11/20/21 10:48 MB [id number]) Subjective Physical Therapy Visit Type Type Initial Evaluation Visit Start Time 09:53 Visit Stop Time 10:21 Total Visit Minutes 28 Number of CORRESPONDENCE SPECIALIST Visits 0 Physical Therapy Visit Comments Patient Comments Pt states that she is trying to text a friend to bring in her glasses and hearing aides. She states that she has a wound care visit on Monday that she thinks she will have to cancel if she stays in the hospital. Therapy Pain Assessment Pain When Pain Assessed At Rest Pain Present Pain Present Pain Reported Location Left ankle/achilles area Intensity 5 Scale Used Chan-Yan (Faces) Description Tender Pain Management Techniques Re-positioning M4 PT-IP Mobility and Gait Start: 11/20/21 09:38 Freq: Status: Active Protocol: Document 11/20/21 10:27 MB (Rec: 11/20/21 10:48 MB [id number]) PT-Bed Mobility Assessment Supine to Sit Supine to Sit Standby Assistance Scooting Scooting to Edge of Bed Standby Assistance PT-Transfer Assessment Sit to and From Stand Sit to and from Stand Contact Guard Assistance Equipment Transfer Assistive Device Bed Rail,Gait Belt,Front Wheeled Walker Orthotic/Prosthetic Devices or Brace: No Transfers Transfer Destination Chair Transfer Technique Stand Step Pivot Transfer Ability Level of Assist Minimal Assistance Comments Mobility Comments Pt is able to move to the right to the side of bed with increased time, HOB increased and use of rail. She pushes up from the bed to the walker to stand and her posture is forward and flexed. She has functional right leg weakness and has trouble initiating moving it and the walker. She takes a foot steps from the bed to the chair with PT assist. In sitting in bed and in chair, pt leans on left UE. She reports wounds sacrum and left foot and an old right shoulder dislocation. PT places inflatable ring cushion under pt and asks nsg to check in on her in half hour and consider checking skin when pt gets up to commode later in the morning. Pt left with needs in reach and nsg aware. Gait Assessment Gait Gait Assistance Required: Minimum Assistance Distance (Feet) 1 Assistive Devices Assistive Device Gait Belt,Front Wheeled Walker Orthotic/Prosthetic Devices or Brace: No Gait Deviations General Gait Pattern Antalgic,Decreased Stride Length,Decreased Feet Clearance,Flexed Trunk,Step-to Gait Factors Limiting Gait Function Factors Limiting Gait Function Abnormal Tonal Influences, Decreased Activity Tolerance, Decreased Strength,Difficulty Following Directions,Limited Range of Motion,Pain,Poor Balance Comments Gait Comments Gait is slow and antalgic. She has chronic right LE weakness and tone changes with limited ROM and this makes gait challenging. Little right foot clearance with gait and step- to stepping pattern from the bed to the chair. PT-Balance Assessment Sitting Balance and Reactions Static Sitting Balance Ability Poor Dynamic Sitting Balance Ability Fair Standing Balance and Reactions Static Standing Balance Ability Poor Dynamic Standing Balance Ability Poor Device Used RW Comments Other Balance Tests/Deviations/Treatment In static sitting, pt leans : over on her left elbow in the bed and the chair. She can right herself about 50% and tends to move back into this position. Her standing position at the walker is similar: more WB to the left arm and leg. She has MS changes to right LE and old right shoulder dislocation as well as thoracic compression fractures and spinal changes and these are components to postural and balance challenges. M5 PT-IP Objective Assessments Start: 11/20/21 09:38 Freq: Status: Active Protocol: Document 11/20/21 10:27 MB (Rec: 11/20/21 10:48 MB [id number]) Orientation Orientation/Cognition Level of Alertness Alert Orientation Name,Age,Birthday,Month, Situation Language Function Ability Hard of Hearing Safety Awareness Decreased Safety Awareness Comments Mostly, pt is lethargic this morning and occ is slow to answer questions. She also needs her hearing aides, per pt. Gross Range of Motion Upper Extremity ROM Assessment Right Impaired Impairments Pt reports right shoulder dislocation Lower Extremity ROM Assessment Bilaterally Impaired Impairments R LE with tone changes and limited DF and eversion, left LE is grossly functional and does have increased tension PFs Strength Comments Strength Comments MMT deferred d/t pt is overall cachexic in appearance and has known wound challenges and right shoulder dislocation from the past per pt report M6 PT-IP Treatment Start: 11/20/21 09:38 Freq: Status: Active Protocol: Document 11/20/21 10:27 MB (Rec: 11/20/21 10:48 MB [id number]) Physical Therapy Treatment Exercises Exercises Ankle Pumps Education Education Provided Safety M7 PT-IP Assessment and Plan Start: 11/20/21 09:38 Freq: Status: Active Protocol: Document 11/20/21 10:27 MB (Rec: 11/20/21 10:48 MB [id number]) PT Summary Assessment and Plan Potential Rehabilitation Potential Fair Status of Condition at Evaluation Evolving Summary Impairments Pain,ROM,Strength,Balance,Tone ,Bed Mobility,Transfers,Gait, Activity Tolerance Assessment Summary Pt is an 86 y/o female presenting with reports of left achilles area pain to palpation and PT asked pt to communicate to doctor and PT spoke with nsg about her reports. Pt reports a history of decreased mobility at [facility], use of rollator and RW, sponge baths d/t wounds, need for wound care visit, recent SNF. Dxs reveal thoracic compression fractures and pt presents with postural changes. She does not report back pain, however. Her mobility is slow today and she has weakness in her right LE that she states is baseline from MS. She will benefit from acute and post- acute PT to improve mobility, safety, and balance. Goals Bed Mobility Goal Independent Transfer Goal Independent,Front Wheeled Walker Gait Goal Independent,Front Wheel Walker Gait Distance 50 Days to Meet Goals 5 Frequency of Treatment Frequency Of Treatment Once a Day Treatment Plan Physical Therapy Treatment Plan Bed Mobility Training,Transfer Training,Gait Training, Therapeutic Exercise,Balance Retraining,Neuromuscular Re-ed Precautions Other Precautions Fall risk, cushion under her d /t reports of wounds on bottom Recommendations To Nursing Amount of Assist Needed 1 Person Assist Discharge Recommendations PT Discharge Recommendations SNF Rehab Transportation Needs at Discharge Private Vehicle,Wheelchair/ Cabulance
--- NOTE | 2021-11-20 10:51 | PT-IP ANOTE ---
PT did check pt's BP in RUE. In hook lying in bed, BP and HR 117/57, 56 and in standing at walker 123/71, 65. Pt denied light-headedness today. She does state that her BP is rather volatile at home.
--- NOTE | 2021-11-20 15:06 | PC.NURSE ---
Addendum entered by Barbara Santos R.N. 11/20/21 15:13: CORRECTION TO ABOVE -SpO2 96% RA -Pt has bed/chair alarm on for pt safety. Original Note: Pt having relatively uneventful day, Sitting in chair most afternoon. Lungs clear/diminished, SpO2 93% RA Continues w/course cough HL LFA intact/patent. Call light w/in reach/ pt independent in room Continue w/plan of care.
--- NOTE | 2021-11-20 15:15 | CM.DANOTE ---
Addendum entered by MARYLOU Romero 11/20/21 15:33: ADD: PASRR completed. Referrals faxed to [facility], [facility], Tricia Talam[facility] for review and admissions called. BF Original Note: Patient is an 86 yo female who was admitted on 11/20/21 for GLF. Pt has REG MCR ADV for insurance and her PCP is Dr. Blayne Sims. EMR was reviewed. Per MD, pt admitted for weakness after failing PT eval in ED and lack of assist at home. Per PT, recommending SNF at d/c and OT eval pending. SW met bedside with pt and explained role and pt confirms she still lives at [facility] and independent living as they do not provide assist other than meals. Pt is currently open with [facility] for wound care and had scheduled outpt W[facility] appointment in a couple days. Pt's adult Dtr lives with her in their one bedroom apt but pt has stated that her Dtr is not very reliable and does not really assist due to her own medical issues. Pt states that currently her DPOA is her sister in [place] but pt states that doesn't really make sense now so I'm wanting to update it to my Dtr who lives with me and my grandson who lives in [place]. SW discussed if pt is still here on Monday a blank copy of DPOA pwk could be given to her and notary MAY be available to notarize but not a guarantee. Pt very appreciative and interested. Pt confirms she was recently at [facility] SNF after being discharged from [facility] for previous GLF and confirms that she feels SNF needed again and preference would be [facility]. SW discussed [facility] may not have bed availability pending when pt is stable for d/c and therefore backup SNF would be needed and pt agreeable especially if in [facility]. Pt aware that insurance auth for SNF will be needed. SW made referral to [facility] for review and will likely need OT eval for insurance auth and faxed [facility] pt's H&P to alert them to pt's admission. Plan: SW to follow closely for additional SNF referrals as backup and Reg MCR Adv auth needed for SNF and will need to be started soon. PASRR needed. MARYLOU Romero Discharge Planning/Care Management CM Discharge Assessment Start: 11/20/21 15:11 Freq: Status: Active Protocol: Document 11/20/21 15:11 BF (Rec: 11/20/21 15:15 BF [id number]) Discharge Planning Assessment Assigned Developer Programmer Analyst MARYLOU Briggs DPOA/Assigned Designee Name sister in [place], wants to update to Dtr and grandson Advance Directives? Yes: Dtr will bring in copy of POLST for file Advance Directives on File No History Provided By Patient,Medical Record Has Patient been admitted in last 30 No days? Comment Recent d/c on Oct 04 2021 to [facility] Prior Living Arrangements Residential Facility Household Members children Type of transporation used prior to Relies on Others admit Comment Lives at [facility] and Dtr lives with but does not assist much Facility Name Admitted From: [facility] [address] Willing to Return to Facility? Yes: but needs SNF Independent with ADL's Yes: somewhat Is patient alert and oriented? Yes Needs Assistance With Bathing,Meal Prep,Home Chores / Shopping Caregiver for Another No Community Services used prior to Home Health Nurse admission: Comment Open with [facility] DME Already Rented / Owned FWW / Walker Patient/Family Preference Senior Living Facility Comment Lives at [facility], unable to return there until she gets some rehab. Discharge Plan Senior Living Facility Transportation Arrangement Facility Referrals Initiated Senior Living Additional Comment will need insurance auth If patient plan is SNF: Has PASSR been Yes completed? Medicare Choice List Provided Yes SNF/HH Preference Preference is [facility] again Has Agency SNF been contacted Yes Comment will need back up SNF Whiteboard Updated in Patient Room with Yes name and ext. # of Developer Programmer Analyst Review Status In Process Please Provide Date Initial DC 11/20/21 Assessment Was Performed Next Review Type Continued Stay Review
--- NOTE | 2021-11-20 15:51 | PC.NURSE ---
Pt alert w/some confusion @ times. Lungs clear/diminished, Spo2 96% RA Vanco trough 9.2 this afternoon, no changes to vanco per pharmacy. Assisted to BSC several times. Bilateral lower legs discolored & edematous. Pt states spot on left heel painful. Call light w/in reach, bed alarm on for pt safety. Continue w/plan of care.
[2021-11-20] MEDS: ACETAMINOPHEN 325 MG TABLET 650 MG PO (17:55)
[2021-11-20] MEDS: ATORVASTATIN 20 MG TABLET PO (20:31)
[2021-11-20] MEDS: PRAMIPEXOLE 0.25 MG TABLET 0.75 MG PO (20:31)
[2021-11-21] MEDS: ACETAMINOPHEN 325 MG TABLET 650 MG PO (01:39)
[2021-11-21] MEDS: DOXYCYCLINE 100 MG in SODIUM CHLORIDE 0.9% 100 ML IV ×2 (01:40→15:10)
[2021-11-21] MEDS: LEVOTHYROXINE 112 MCG TABLET PO (05:40)
[2021-11-21 06:00] VITALS: BP 140/62; PULSE 52; RESP 17; TEMP 36.9; O2SAT 99
[2021-11-21 06:42] LABS: Add Manual Diff / Slide Review NO; Basophils Absolute Auto 100 /uL (0-100); Basophils Percent Auto 1.1 % (0-2); Eosinophils Absolute Auto 200 /uL (0-450); Eosinophils Percent Auto 3.4 % (2-4); Hematocrit 29.1 % (36-46); Hemoglobin 9.7 g/dL (12.0-16.0); Lymphocytes Absolute Auto 600 /uL (1100-4500); Lymphocytes Percent Auto 11.8 % (25-40); Mean Corpuscular HGB Conc 33.3 % (30-36); Mean Corpuscular Hemoglobin 30.2 PG (26-34); Mean Corpuscular Volume 90.6 fL (80-100); Monocytes Absolute Auto 400 /uL (0-900); Monocytes Percent Auto 8.4 % (3-14); Neutrophils Absolute Auto 3800 /uL (1500-7000); Neutrophils Percent Auto 75.3 % (50-75); Platelet Count 129 X10^3/uL (150-400); Red Blood Cell Count 3.21 X10^6/uL (4.0-5.2); Red Cell Distribution Width 15.9 % (11.6-14.8); White Blood Cell Count 5.1 X10^3/uL (4.5-11.0)
[2021-11-21 06:52] LABS: BUN Creatinine Ratio 21.4 (6-22); Blood Urea Nitrogen 15 mg/dL (7-17); Calcium 8.3 mg/dL (8.4-10.2); Carbon Dioxide 25 mmol/L (22-32); Chloride 110 mmol/L (98-107); Estimated Glomerular Filt Rate > 60.0 mL/min (>60); Glucose 91 mg/dL (80-110); HEMOLYSIS < 15 (0-50); Potassium 4.1 mmol/L (3.4-5.1); Sodium 135 mmol/L (137-145)
[2021-11-21 07:30] VITALS: BP 150/86; PULSE 56; RESP 14; TEMP 37.1; O2SAT 97
[2021-11-21] MEDS: ENOXAPARIN 30 MG/0.3 ML SYRINGE SUBCUT (08:32)
[2021-11-21] MEDS: CALCIUM CARBONATE 600 MG TABLET PO (08:32)
[2021-11-21] MEDS: CHOLECALCIFEROL (VITAMIN D3) 5,000 UNIT TABLET 5000 UNIT PO (08:33)
[2021-11-21] MEDS: LOSARTAN 25 MG TABLET PO (08:33)
[2021-11-21] MEDS: SODIUM CHLORIDE 0.9% FLUSH 10 ML IV ×3 (08:33→20:22)
[2021-11-21] MEDS: OXYBUTYNIN 5 MG TABLET PO (08:33)
[2021-11-21] MEDS: AZITHROMYCIN 250 MG TABLET 500 MG PO (08:33)
--- NOTE | 2021-11-21 14:51 | PT.IPTN ---
Current Diagnoses Pneumonia, unspecified organism (11/20/21) Physical Therapy Treatment Note M2 PT-IP Current Condition Start: 11/20/21 09:38 Freq: Status: Active Protocol: Document 11/21/21 14:51 DLM (Rec: 11/21/21 15:42 DLM [id number]) Physical Therapy Current Condition Current Condition Evaluation Date 11/20/21 Treatment Diagnosis Fall, T7 comp fx, impaired gait/mobility Onset Date 11/20/21 M3 PT-IP Subjective Start: 11/20/21 09:38 Freq: Status: Active Protocol: Document 11/21/21 14:51 DLM (Rec: 11/21/21 15:42 DL [id number]) Subjective Physical Therapy Visit Type Type Treatment Note Visit Start Time 14:10 Visit Stop Time 14:51 Total Visit Minutes 41 Number of SOFTWARE ENGINEER Visits 0 Physical Therapy Visit Comments Patient Comments She doesn't feel safe to return home yet. She c/o feeling unsteady on her feet. She has her hearing aides in now. The joints in right hand are more sore and swollen today. She gets ringing in her ears when turning her head sometimes. Patient Goals feel safer when up walking Therapy Pain Assessment Pain When Pain Assessed At Rest Pain Present Pain Present Pain Reported Location Left ankle/achilles area Intensity 4 Scale Used Numeric (0 - 10) Description Tender Pain Management Techniques Re-positioning M4 PT-IP Mobility and Gait Start: 11/20/21 09:38 Freq: Status: Active Protocol: Document 11/21/21 14:51 DLM (Rec: 11/21/21 15:42 DL [id number]) PT-Bed Mobility Assessment Scooting Scooting to Edge of Bed Standby Assistance PT-Transfer Assessment Sit to and From Stand Sit to and from Stand Contact Guard Assistance,Use of Upper Extremities Equipment Transfer Assistive Device Gait Belt,Front Wheeled Walker Transfers Transfer Destination Chair Transfer Technique Stand Step Pivot Transfer Ability Level of Assist Contact Guard Assistance,Use of Upper Extremities Comments Mobility Comments Pt is up in the recliner and wants to stay up. She reports less sacral wound pain in sitting. Pt is sitting on a waffle cushion. Mild increased sway with initial standing but this resolved with physical cuing. Gait Assessment Gait Gait Assistance Required: Contact Guard Assist Distance (Feet) 200 Assistive Devices Assistive Device Gait Belt,Front Wheeled Walker Gait Deviations General Gait Pattern Decreased Stride Length,Flexed Trunk Factors Limiting Gait Function Factors Limiting Gait Function Decreased Activity Tolerance, Decreased Strength,Pain,Poor Balance Comments Gait Comments She remembers that in prior PT she was told to take longer steps and do heel strike so pt attempting these things during gait. PT-Balance Assessment Sitting Balance and Reactions Static Sitting Balance Ability Good Dynamic Sitting Balance Ability Good Standing Balance and Reactions Static Standing Balance Ability Fair Dynamic Standing Balance Ability Fair Device Used FWW Comments Other Balance Tests/Deviations/Treatment When sitting in the recliner : she tends to list left and she is aware of it. She reports difficulty correcting this position so used pillows to position her. Pt able to sit erect when sitting on the edge of the chair. M5 PT-IP Objective Assessments Start: 11/20/21 09:38 Freq: Status: Active Protocol: Document 11/20/21 10:27 MB (Rec: 11/20/21 10:48 MB [id number]) Orientation Orientation/Cognition Level of Alertness Alert Orientation Name,Age,Birthday,Month, Situation Language Function Ability Hard of Hearing Safety Awareness Decreased Safety Awareness Comments Mostly, pt is lethargic this morning and occ is slow to answer questions. She also needs her hearing aides, per pt. Gross Range of Motion Upper Extremity ROM Assessment Right Impaired Impairments Pt reports right shoulder dislocation Lower Extremity ROM Assessment Bilaterally Impaired Impairments R LE with tone changes and limited DF and eversion, left LE is grossly functional and does have increased tension PFs Strength Comments Strength Comments MMT deferred d/t pt is overall cachexic in appearance and has known wound challenges and right shoulder dislocation from the past per pt report M6 PT-IP Treatment Start: 11/20/21 09:38 Freq: Status: Active Protocol: Document 11/21/21 14:51 DLM (Rec: 11/21/21 15:42 DLM [id number]) Physical Therapy Treatment Exercises Exercises Ankle Pumps Education Education Provided Safety Other Treatments Other Treatment Performed noted slow mental processing this visit M7 PT-IP Assessment and Plan Start: 11/20/21 09:38 Freq: Status: Active Protocol: Document 11/21/21 14:51 DLM (Rec: 11/21/21 15:42 DLM [id number]) PT Summary Assessment and Plan Summary Impairments Pain,ROM,Strength,Balance,Tone ,Bed Mobility,Transfers,Gait, Activity Tolerance Progress Towards Goals Progressing Toward Goals Assessment Summary Dorothy is alert and up in the recliner. She reports she is feeling better today but still feels unsafe to go home at this time. She demonstrates good progress with her mobility and gait today compared to yesterday. She was able to increase her distance of gait in the molina. If she continues her rapid progress she may not need SNF rehab at discharge but may be able to go home with home health services. Will continue to assess for discharge planning tomorrow. Goals Bed Mobility Goal Independent Transfer Goal Independent,Front Wheeled Walker Gait Goal Independent,Front Wheel Walker Gait Distance 50 Days to Meet Goals 5 Frequency of Treatment Frequency Of Treatment Once a Day Treatment Plan Physical Therapy Treatment Plan Bed Mobility Training,Transfer Training,Gait Training, Therapeutic Exercise,Balance Retraining,Discharge Planning, Neuromuscular Re-ed Other Recommendations and Next Treatment standing balance training to Focus assist with safe ADL's such as clothing management when toileting Precautions Other Precautions hx of falls, waffle cushion in chair due to sacral wounds Recommendations To Nursing Amount of Assist Needed 1 Person Assist Discharge Recommendations PT Discharge Recommendations Home vs SNF Transportation Needs at Discharge Private Vehicle
[2021-11-21 15:05] VITALS: BP 132/74; PULSE 62; RESP 15; TEMP 37.2; O2SAT 100
[2021-11-21] MEDS: polyethylene glycoL 3350 17 GM POWD.PACK PO (15:10)
--- NOTE | 2021-11-21 15:26 | CM.DPNOTE ---
DCP Note According to Luisa at [facility] and Jolene at [facility]; both anticipate they can clinically accept patient but [employer] auth would need to be secured, auth request cannot begin until Monday11.22.21. Jolene/Tricia Talamantes asks if patient has a CPAP machine? Discussed dispo options w/PT Lashon, who had just seen patient, patient remains interested in SNF upon DC, however, patient has improved today w/PT, Lashon anticipates patient may be able to go home w/resumption of her [facility]. CM team following closely for coordination of the safest dispo that is available to patient at this time. Plan: DC to SNF if [employer] auth secured vs Home w/dtr and HH services via pov (?) JW
--- NOTE | 2021-11-21 17:11 | PC.NURSE ---
Patient alert, oriented denies pain and shortness of breath. SBA to bathroom assisted with shower, stage 2 ulcer to left buttock, previously documented. small alleyvn placed. Old healing ulcer to right upper buttock. Replaced dressings to right medial ankle and left top of foot. DARIO hose placed back on.
--- NOTE | 2021-11-21 18:01 | P.PN_ITS ---
Subjective Subjective Date Patient Seen: 11/21/21 Interval history: PATIENT WITH UNDERLYING DEMENTIA. REVIEW OF SYSTEM IS UNRELIABLE SIGNIFICANT ISSUES REPORTED OVERNIGHT BY NURSING Exam Vital Signs (past 8 hours): - 11/21/21 15:05 Temperature 98.9 F Pulse Rate 62 Respiratory Rate 15 Blood Pressure 132/74 Pulse Oximetry 100 Oxygen Delivery Method Room Air Oxygen Flow Rate 0 Narrative Exam Narrative: NO ACUTE DISTRESS. DEMENTIA HEAD ATRAUMATIC NORMOCEPHALIC NECK : SUPPLE WITHOUT ADENOPATHY NO CAROTID BRUITS EYE: EOMI, PERRLA, NORMAL CONJUNCTIVA; NO JAUNDICE CHEST: REGULAR RATE. NO RUBS. PMI IS NON DISPLACED. NO MURMURS; NORMAL S1- S2 PULMONARY: DECREASED BS OVER THE BASES. MILD BIBASILAR CRACKLES NOTED; NO INCREASED DULLNESS TO PERCUSSION ABDOMEN: SOFT. NONTENDER. NONDISTENDED. BOWEL SOUNDS ARE PRESENT IN ALL 4 QUADRANTS. EXTREMITIES: NO CYANOSIS OR CLUBBING NOTED. NEURO: CRANIAL NERVES 2-12 GROSSLY INTACT. NO FOCAL NEUROLOGICAL DEFICIT NOTED. MSK: NO DEFORMITIES. SOME DISCOMFORT WITH ACTIVE AND PASSIVE RANGE OF MOTION PSYCH : CALM. COOPERATIVE Objective Labs Result Diagrams: 11/21/21 06:20 11/21/21 06:20 Labs: Laboratory Results - last 24 hr 11/21/21 11/21/21 06:20 06:20 WBC 5.1 RBC 3.21 L Hgb 9.7 L Hct 29.1 L MCV 90.6 MCH 30.2 MCHC 33.3 RDW 15.9 H Plt Count 129 L Neut % (Auto) 75.3 H Lymph % (Auto) 11.8 L Isabela % (Auto) 8.4 Eos % (Auto) 3.4 Baso % (Auto) 1.1 Neut # (Auto) 3800 Lymph # (Auto) 600 L Isabela # (Auto) 400 Eos # (Auto) 200 Baso # (Auto) 100 Sodium 135 L Potassium 4.1 Chloride 110 H Carbon Dioxide 25 BUN 15 Creatinine 0.70 Estimated GFR > 60.0 BUN/Creatinine Ratio 21.4 Glucose 91 Calcium 8.3 L PFSH Medical History Hyperlipidemia Hypertension, essential Hypothyroid Left femoral shaft fracture Multiple sclerosis Surgical History H/O cataract removal with insertion of prosthetic lens H/O esophageal hernia repair Family History Father Asthma Mother Colon cancer Social History household members: children Smoking Status: Former smoker alcohol intake: current Assessment & Plan Assessment & Plan narrative: PROBLEM LIST FALL PHYSICAL DECONDITIONING COMMUNITY-ACQUIRED PNEUMONIA MULTIPLE SCLEROSIS PER HISTORY PHYSICAL DEBILITY/DECONDITIONING DEMENTIA PLAN AWAITING TRANSFER TO [facility] ONCE A BED BECAME AVAILABLE MONITOR CLOSELY FOR NOW AND CONTINUE CURRENT MANAGEMENT FALL AND ASPIRATION PRECAUTIONS WATCH FOR CASE MANAGEMENT ASSISTANCE WITH DISCHARGE PLANNING GREATLY APPRECIATED WILL ORDER LABS INDICATED ONLY ADDITIONAL MANAGEMENT PER CLINICAL COURSE Time Spent With Patient Critical Care time: I spent a total of [] minutes of critical care time on this patient's care today; this time is exclusive of procedural time. Quality VTE Deep Vein Thrombosis/Pulmonary Embolism Present on Admission: Yes
[2021-11-21 19:40] VITALS: PULSE 62; RESP 15; O2SAT 100
[2021-11-21] MEDS: SENNOSIDES 8.6 MG TABLET PO (20:21)
[2021-11-21] MEDS: PRAMIPEXOLE 0.25 MG TABLET 0.75 MG PO (20:22)
[2021-11-21] MEDS: ATORVASTATIN 20 MG TABLET PO (20:22)
[2021-11-21 20:40] VITALS: BP 152/75; PULSE 59; RESP 18; TEMP 36.6; O2SAT 99
--- NOTE | 2021-11-21 22:08 | PC.NURSE ---
Patient is alert and oriented. Breath sounds diminished at bases with RA sat of 99%. HRR with rate of 59 and BP elevated at 152/75. Denied nausea. BT present and abdomen is soft. Voiding using BSC and states she has some mild burning with urination. Is able to move self in bed but waffle cushion is being used as patient has pressure injury on coccyx. Gets up to BSC using walker and SBA. Allevyn dressings to left buttock, right medial ankle and left anterior foot all CDI. Denied pain. Wearing bilateral DARIO stockings. Fall risk score is high and bed alarm is activated.
[2021-11-22 02:19] VITALS: BP 148/71; PULSE 55; RESP 18; TEMP 36.9; O2SAT 99
[2021-11-22] MEDS: LEVOTHYROXINE 112 MCG TABLET PO (05:49)
[2021-11-22 06:26] LABS: Add Manual Diff / Slide Review NO; Basophils Absolute Auto 100 /uL (0-100); Basophils Percent Auto 1.4 % (0-2); Eosinophils Absolute Auto 200 /uL (0-450); Eosinophils Percent Auto 4.3 % (2-4); Hematocrit 33.1 % (36-46); Lymphocytes Absolute Auto 800 /uL (1100-4500); Lymphocytes Percent Auto 14.5 % (25-40); Mean Corpuscular HGB Conc 33.1 % (30-36); Mean Corpuscular Hemoglobin 30.1 PG (26-34); Mean Corpuscular Volume 90.9 fL (80-100); Monocytes Absolute Auto 400 /uL (0-900); Monocytes Percent Auto 8.4 % (3-14); Neutrophils Absolute Auto 3800 /uL (1500-7000); Neutrophils Percent Auto 71.4 % (50-75); Platelet Count 129 X10^3/uL (150-400); Red Blood Cell Count 3.64 X10^6/uL (4.0-5.2); White Blood Cell Count 5.3 X10^3/uL (4.5-11.0)
[2021-11-22 06:40] LABS: BUN Creatinine Ratio 24.7 (6-22); Blood Urea Nitrogen 18 mg/dL (7-17); Carbon Dioxide 28 mmol/L (22-32); Chloride 105 mmol/L (98-107); Estimated Glomerular Filt Rate > 60.0 mL/min (>60); Glucose 89 mg/dL (80-110); HEMOLYSIS < 15 (0-50); Sodium 134 mmol/L (137-145)
[2021-11-22] MEDS: ENOXAPARIN 40 MG/0.4 ML SYRINGE SUBCUT (09:26)
[2021-11-22] MEDS: OXYBUTYNIN 5 MG TABLET PO (09:26)
[2021-11-22] MEDS: AZITHROMYCIN 250 MG TABLET 500 MG PO (09:26)
[2021-11-22] MEDS: polyethylene glycoL 3350 17 GM POWD.PACK PO (09:26)
[2021-11-22] MEDS: CHOLECALCIFEROL (VITAMIN D3) 5,000 UNIT TABLET 5000 UNIT PO (09:26)
[2021-11-22] MEDS: CALCIUM CARBONATE 600 MG TABLET PO (09:29)
[2021-11-22] MEDS: LOSARTAN 25 MG TABLET PO (09:30)
[2021-11-22] MEDS: SODIUM CHLORIDE 0.9% FLUSH 10 ML IV ×2 (09:52→20:44)
--- NOTE | 2021-11-22 10:53 | PT.IPTN ---
Current Diagnoses Pneumonia, unspecified organism (11/20/21) Physical Therapy Treatment Note M2 PT-IP Current Condition Start: 11/20/21 09:38 Freq: Status: Active Protocol: Document 11/21/21 14:51 DLM (Rec: 11/21/21 15:42 DLM [id number]) Physical Therapy Current Condition Current Condition Evaluation Date 11/20/21 Treatment Diagnosis Fall, T7 comp fx, impaired gait/mobility Onset Date 11/20/21 M3 PT-IP Subjective Start: 11/20/21 09:38 Freq: Status: Active Protocol: Document 11/22/21 10:21 KS (Rec: 11/22/21 11:11 KS [id number]) Subjective Physical Therapy Visit Type Type Treatment Note Visit Start Time 10:21 Visit Stop Time 10:53 Total Visit Minutes 32 Number of WALKING DRAGLINE OPERATOR Visits 1 Physical Therapy Visit Comments Patient Comments Pt agreeable to working w/ therapy but reports feelings of weakness and shakiness. M4 PT-IP Mobility and Gait Start: 11/20/21 09:38 Freq: Status: Active Protocol: Document 11/22/21 10:21 KS (Rec: 11/22/21 11:11 KS [id number]) PT-Bed Mobility Assessment Supine to Sit Supine to Sit Contact Guard Assistance,Head of Bed Elevated,Bedrails Sit to Supine Sit to Supine Contact Guard Assistance,Head of Bed Elevated,Bedrails Scooting Scooting to Edge of Bed Standby Assistance Scooting Up and Down in Bed Moderate Assistance PT-Transfer Assessment Sit to and From Stand Sit to and from Stand Minimal Assistance,1 Person Assistance,Use of Upper Extremities Equipment Transfer Assistive Device Gait Belt,Front Wheeled Walker Transfers Transfer Destination Bed,Bedside Commode Transfer Technique Pt ambulated w/ FWW Transfer Ability Level of Assist Contact Guard Assistance, Minimal Assistance,1 Person Assistance,Use of Upper Extremities Comments Mobility Comments Pt in bed upon arrival and agreeable to ambulation after using BSC. Pt CGA for sup<>sit w/ HOB elevated and use fo bed rails. Pt able to sit<> stand w/ FWW Min A due to posterior lean relying on bed against legs to remain upright . Pt able to ambulate ~5ft to BSC, but unable to make it to toilet due to strong urge to urinate. Pt unable to don/doff her own briefs due to poor balance. Pt then ambulated ~40 ft around room w/ FWW CGA to Min A for FWW management. Pt has very short stride and decreased foot clearance and reports fatigue and soreness of legs during ambulation. She is not currently safe to ambulate w/o assistance. Pt able to maintain standing balance ~2 in at sink for teeth brushing and then returned to bed CGA w/ HOB elevated and use of bed rails. Pt able to scoot laterally, but unable to scoot up in bed at this time, requiring Mod A and cues. Gait Assessment Gait Gait Assistance Required: Contact Guard Assist,Minimum Assistance,1 Person Assist Distance (Feet) 40 Assistive Devices Assistive Device Gait Belt,Front Wheeled Walker Gait Deviations General Gait Pattern Decreased Stride Length, Decreased Feet Clearance, Flexed Trunk,Lateral Trunk Lean Factors Limiting Gait Function Factors Limiting Gait Function Decreased Activity Tolerance, Decreased Strength,Limited Range of Motion,Pain,Poor Balance Comments Gait Comments Pt able to ambulate ~40 ft w/ FWW CGA to Min A and requring cues and FWW management at times. She has very short stride and descreased foot clearance due to weakness resulting in increased fall risk. She has low tolerance for activity and is not safe to ambulate on her own at this time. PT-Balance Assessment Sitting Balance and Reactions Static Sitting Balance Ability Good Dynamic Sitting Balance Ability Good Standing Balance and Reactions Static Standing Balance Ability Fair Dynamic Standing Balance Ability Fair Device Used FWW M5 PT-IP Objective Assessments Start: 11/20/21 09:38 Freq: Status: Active Protocol: Document 11/20/21 10:27 MB (Rec: 11/20/21 10:48 MB [id number]) Orientation Orientation/Cognition Level of Alertness Alert Orientation Name,Age,Birthday,Month, Situation Language Function Ability Hard of Hearing Safety Awareness Decreased Safety Awareness Comments Mostly, pt is lethargic this morning and occ is slow to answer questions. She also needs her hearing aides, per pt. Gross Range of Motion Upper Extremity ROM Assessment Right Impaired Impairments Pt reports right shoulder dislocation Lower Extremity ROM Assessment Bilaterally Impaired Impairments R LE with tone changes and limited DF and eversion, left LE is grossly functional and does have increased tension PFs Strength Comments Strength Comments MMT deferred d/t pt is overall cachexic in appearance and has known wound challenges and right shoulder dislocation from the past per pt report M6 PT-IP Treatment Start: 11/20/21 09:38 Freq: Status: Active Protocol: Document 11/22/21 10:21 KS (Rec: 11/22/21 11:11 KS [id number]) Physical Therapy Treatment Exercises Exercises Ankle Pumps Education Education Provided Safety Other Treatments Other Treatment Performed noted slow mental processing this visit M7 PT-IP Assessment and Plan Start: 11/20/21 09:38 Freq: Status: Active Protocol: Document 11/22/21 10:21 KS (Rec: 11/22/21 11:11 KS [id number]) PT Summary Assessment and Plan Potential Rehabilitation Potential Fair Summary Impairments Pain,ROM,Strength,Balance,Tone ,Bed Mobility,Transfers,Gait, Activity Tolerance Progress Towards Goals Slow Progress due to Activity Tolerance Assessment Summary Pt CGA for sup<>sit but requires use of bed rails and elevated HOB. She is able to scoot laterally, but required Mod A to scoot up in bed due to weakness in BUE. She ambulated ~40 ft w/ FWW but required increased time and CGA to Min A due to poor balance, weakness and increased fall risk. Shuffling gait w/ flexed posture throughout and fatigue reported following. During use of BSC, she was unable to don /doff her own briefs and when she stands from BSC and bed she leans posteriorly against surface she is standing from needing cues and Min A to correct, which is unsafe and further increases fall risk. At this time, she is unsafe to return home and will require SNF to improve strength, tolerance for activity, and functional independence. Goals Bed Mobility Goal Independent Transfer Goal Independent,Front Wheeled Walker Gait Goal Independent,Front Wheel Walker Gait Distance 50 Days to Meet Goals 5 Frequency of Treatment Frequency Of Treatment Once a Day Treatment Plan Physical Therapy Treatment Plan Bed Mobility Training,Transfer Training,Gait Training, Therapeutic Exercise,Balance Retraining,Discharge Planning, Neuromuscular Re-ed Other Recommendations and Next Treatment standing balance training to Focus assist with safe ADL's such as clothing management when toileting Precautions Other Precautions hx of falls, waffle cushion in chair due to sacral wounds Recommendations To Nursing Amount of Assist Needed 1 Person Assist Discharge Recommendations PT Discharge Recommendations SNF Rehab Transportation Needs at Discharge Private Vehicle
--- NOTE | 2021-11-22 11:52 | CM.DPC ---
DCP Cont: SNF vs Home planning Per MD, pt medically stable to d/c but pending safe d/c destination. SW requested GEAR HOBBER SET UP OPERATOR prioritize pt this morning to determine if safe for home vs SNF. Pt's preference has been SNF but need to confirm with her insurance that they will auth SNF. Per GEAR HOBBER SET UP OPERATOR, still recommending SNF at d/c before safe return home. SNF's previously faxed to for referral and review: [facility]- spoke to admissions they are willing to review to determine if willing to start auth [facility]- willing to review this morning and faxed updated clinicals for review [facility]- left msg [facility]- reviewing and willing to accept and sent in auth request around 1000 this morning. Faxed updated GEAR HOBBER SET UP OPERATOR note from this morning towards insurance auth. PASRR previously completed. Plan: SW to follow for [facility] [place] attempt at insurance auth for SNF and hopeful to get it within 24 hours and if pt improves or SNF denied then plan of return to [facility] and adult Dtr. Brigitte Valdivia, COMPUTER ARCHITECT
--- NOTE | 2021-11-22 13:52 | PM.PN.1 ---
Subjective Subjective Date Patient Seen: 11/22/21 Interval history: PATIENT WITH UNDERLYING DEMENTIA. REVIEW OF SYSTEM IS UNRELIABLE SHE DENIES ANY SHORTNESS OF BREATH OR CHEST PAIN HOWEVER SHE INQUIRED ABOUT WHEN SHE WILL BE LEAVING THE HOSPITAL SHE DENIES ANY CHEST PALPITATIONS SHE STATED THAT SHE FEELS WEAK SIGNIFICANT ISSUES REPORTED OVERNIGHT BY NURSING Exam Vital Signs (past 8 hours): Oxygen Delivery Method Room Air Oxygen Flow Rate 0 Narrative Exam Narrative: NO ACUTE DISTRESS.? DEMENTIA HEAD ATRAUMATIC NORMOCEPHALIC NECK : SUPPLE WITHOUT ADENOPATHY NO CAROTID BRUITS EYE:? EOMI, PERRLA, NORMAL CONJUNCTIVA; NO JAUNDICE CHEST:? REGULAR RATE.? ? NO RUBS.? PMI IS NON DISPLACED.? NO MURMURS; NORMAL S1-S2 PULMONARY:? DECREASED BS OVER THE BASES.? MILD BIBASILAR CRACKLES NOTED; NO INCREASED DULLNESS TO PERCUSSION ABDOMEN:? SOFT.? NONTENDER.? NONDISTENDED.? BOWEL SOUNDS ARE PRESENT IN ALL 4 QUADRANTS. ? EXTREMITIES:? ? NO CYANOSIS OR CLUBBING NOTED. NEURO:? CRANIAL NERVES 2-12 GROSSLY INTACT. NO FOCAL NEUROLOGICAL DEFICIT NOTED. MSK:? NO DEFORMITIES.? SOME DISCOMFORT WITH ACTIVE AND PASSIVE RANGE OF MOTION PSYCH :? CALM.? COOPERATIVE Objective Labs Result Diagrams: 11/22/21 05:55 11/22/21 05:55 Labs: Laboratory Results - last 24 hr 11/22/21 11/22/21 05:55 05:55 WBC 5.3 RBC 3.64 L Hgb 11.0 L Hct 33.1 L MCV 90.9 MCH 30.1 MCHC 33.1 RDW 16.0 H Plt Count 129 L Neut % (Auto) 71.4 Lymph % (Auto) 14.5 L [place] % (Auto) 8.4 Eos % (Auto) 4.3 H Baso % (Auto) 1.4 Neut # (Auto) 3800 Lymph # (Auto) 800 L [place] # (Auto) 400 Eos # (Auto) 200 Baso # (Auto) 100 Sodium 134 L Potassium 4.0 Chloride 105 Carbon Dioxide 28 BUN 18 H Creatinine 0.73 Estimated GFR > 60.0 BUN/Creatinine Ratio 24.7 H Glucose 89 Calcium 9.0 PFSH Medical History Hyperlipidemia Hypertension, essential Hypothyroid Left femoral shaft fracture Multiple sclerosis Surgical History H/O cataract removal with insertion of prosthetic lens H/O esophageal hernia repair Family History Father Asthma Mother Colon cancer Social History household members: children Smoking Status: Former smoker alcohol intake: current Assessment & Plan Assessment & Plan narrative: PROBLEM LIST FALL. GROUND LEVEL.SECONDARY TO PHYSICAL DECONDITIONING /DEBILITY POSSIBLE COMMUNITY-ACQUIRED PNEUMONIA. THE [place] SITTER FAILURE SCALP HEMATOMA. SECONDARY TO FALL MULTIPLE SCLEROSIS PER HISTORY. AWARE. AT BASELINE PHYSICAL DEBILITY/DECONDITIONING DEMENTIA. APPEARED TO BE AT BASELINE MENTALLY BRADYCARDIA. CONSIDER SICK SINUS SYNDROME PLAN 11/22 PATIENT CONTINUED TO SHOW IMPROVING CLINICALLY HOWEVER HER HEART RATE HAS BEEN NOTED TO BE VIV OVER THE LAST COUPLE OF DAYS COULD BE SICK SINUS SYNDROME WILL GET AN EKG. WILL ALSO CONSIDER TELEMETRY MONITORING IF INDICATED CLINICALLY. BLOOD PRESSURE HAS BEEN A TAD BIT ELEVATED WELL WILL ADD NIFEDIPINE TO CURRENT REGIMEN. SPOKE TO CASE MANAGEMENT REGARD TO MANAGEMENT GOING ON WOULD PATIENT IS AN ACCEPTED INTO INTERMEDIATE FACILITY AWAITING INSURANCE AUTHORIZATION ADDITIONAL MANAGEMENT PER CLINICAL COURSE /2 AWAITING TRANSFER TO INTERMEDIATE FACILITY ONCE A BED BECAME AVAILABLE MONITOR CLOSELY FOR NOW AND CONTINUE CURRENT MANAGEMENT FALL AND ASPIRATION PRECAUTIONS WATCH FOR CASE MANAGEMENT ASSISTANCE WITH? DISCHARGE PLANNING GREATLY APPRECIATED WILL ORDER LABS INDICATED ONLY ADDITIONAL MANAGEMENT PER CLINICAL COURSE Time Spent With Patient Critical Care time: I spent a total of [] minutes of critical care time on this patient's care today; this time is exclusive of procedural time. Quality VTE Deep Vein Thrombosis/Pulmonary Embolism Present on Admission: Yes
[2021-11-22 13:54] VITALS: BP 161/82; PULSE 55; RESP 16; TEMP 36.8; O2SAT 99
[2021-11-22 20:39] VITALS: BP 133/76; PULSE 66; RESP 18; TEMP 37.1; O2SAT 97
[2021-11-22] MEDS: PRAMIPEXOLE 0.25 MG TABLET 0.75 MG PO (20:43)
[2021-11-22] MEDS: SENNOSIDES 8.6 MG TABLET PO (20:43)
[2021-11-22] MEDS: ATORVASTATIN 20 MG TABLET PO (20:43)
--- NOTE | 2021-11-22 23:34 | PC.NURSE ---
Addendum entered by Nadia Lance R.N. 11/23/21 00:57: Do note that when patient is asleep her HR drops down into the upper 40's. Original Note: Patient is alert and oriented. Breath sounds CTA with RA sat of 97%. HRR with rate of 66 tonight (had been bradycardic earlier). BP improved with addition of Nifedipine and was 133/76 at last check. Denied nausea. BT present and abdomen is soft; is having small, firm stools. Still states she has some mild burning with urination, is voiding frequently (although less frequent on previous shift) and has had some incontinence; UA was sent and currently has no growth. Is able to move self in bed. Is up to BSC with walker and SBA. Allevyn dressings to left buttock, and bilateral feet are CDI. Wearing bilateral DARIO stockings. States she has some arthritic pain but declines offer of pain medication. Fall risk score is high and bed/chair alarms are in use.
[2021-11-23 01:29] VITALS: PULSE 66; RESP 18; O2SAT 97
[2021-11-23] MEDS: fentaNYL 12 MCG/PATCH TOP (01:56)
[2021-11-23 04:00] VITALS: BP 150/89; PULSE 57; RESP 18; TEMP 36.4; O2SAT 97
[2021-11-23] MEDS: LEVOTHYROXINE 112 MCG TABLET PO (06:05)
[2021-11-23] MEDS: ENOXAPARIN 40 MG/0.4 ML SYRINGE SUBCUT (08:21)
[2021-11-23] MEDS: CHOLECALCIFEROL (VITAMIN D3) 5,000 UNIT TABLET 5000 UNIT PO (08:21)
[2021-11-23] MEDS: polyethylene glycoL 3350 17 GM POWD.PACK PO (08:21)
[2021-11-23] MEDS: SODIUM CHLORIDE 0.9% FLUSH 10 ML IV (08:21)
[2021-11-23] MEDS: NIFEdipine 30 MG TAB ER PO (08:21)
[2021-11-23] MEDS: OXYBUTYNIN 5 MG TABLET PO (08:21)
[2021-11-23] MEDS: LOSARTAN 25 MG TABLET PO (08:21)
[2021-11-23] MEDS: CALCIUM CARBONATE 600 MG TABLET PO (08:22)
[2021-11-23] MEDS: SENNOSIDES 8.6 MG TABLET PO (08:22)
[2021-11-23] MEDS: ACETAMINOPHEN 325 MG TABLET 650 MG PO ×2 (08:22→18:45)
[2021-11-23 08:32] VITALS: BP 151/75; PULSE 59
[2021-11-23 08:34] VITALS: O2SAT 97
--- NOTE | 2021-11-23 11:30 | PT.IPTN ---
Current Diagnoses Pneumonia, unspecified organism (11/20/21) Physical Therapy Treatment Note M2 PT-IP Current Condition Start: 11/20/21 09:38 Freq: Status: Active Protocol: Document 11/21/21 14:51 DLM (Rec: 11/21/21 15:42 DLM [id number]) Physical Therapy Current Condition Current Condition Evaluation Date 11/20/21 Treatment Diagnosis Fall, T7 comp fx, impaired gait/mobility Onset Date 11/20/21 M3 PT-IP Subjective Start: 11/20/21 09:38 Freq: Status: Active Protocol: Document 11/23/21 11:06 KS (Rec: 11/23/21 12:22 KS [id number]) Subjective Physical Therapy Visit Type Type Treatment Note Visit Start Time 11:06 Visit Stop Time 11:30 Total Visit Minutes 24 Number of CONTROL INSPECTOR Visits 2 Physical Therapy Visit Comments Patient Comments Pt agreeable to working w/ therapy M4 PT-IP Mobility and Gait Start: 11/20/21 09:38 Freq: Status: Active Protocol: Document 11/23/21 11:06 KS (Rec: 11/23/21 12:22 ID [id number]) PT-Bed Mobility Assessment Scooting Scooting to Edge of Bed Standby Assistance PT-Transfer Assessment Sit to and From Stand Sit to and from Stand Minimal Assistance,1 Person Assistance,Use of Upper Extremities Equipment Transfer Assistive Device Gait Belt,Front Wheeled Walker Transfers Transfer Destination Chair Transfer Technique Pt ambulated w/ FWW Transfer Ability Level of Assist Contact Guard Assistance, Minimal Assistance,1 Person Assistance,Use of Upper Extremities Comments Mobility Comments Pt ambulating w/ NEWS PRODUCTION ASSISTANT upon arrival from therapy and agreeable to continuing ambulation. Pt ambulated ~100 ft w/ FWW and CGA and cues for safety and FWW management. She became mildly SOB during ambulation and required ~1 min standing rest break w/ deep breaths to recover. Upon return to room, pt sat in chair requiring Min A for slow descent and cues for FWW management and safety. She then completed 1x10 bilateral ankle pumps, quad sets, heel slides, and glute sets w/ verbal and tactile cues. Pt left in chair w/ alarm on and all needs in reach. Gait Assessment Gait Gait Assistance Required: Contact Guard Assist,Minimum Assistance,1 Person Assist Distance (Feet) 100 Assistive Devices Assistive Device Gait Belt,Front Wheeled Walker Gait Deviations General Gait Pattern Decreased Stride Length, Decreased Feet Clearance, Flexed Trunk,Lateral Trunk Lean Factors Limiting Gait Function Factors Limiting Gait Function Decreased Activity Tolerance, Decreased Strength,Limited Range of Motion,Pain,Poor Balance Comments Gait Comments Pt able to increase gait distance today w/ FWW but required 1x standing rest break due to mild SOB. Pt does require verbal and tactile cues for FWW management and safety. Her stride increased w / distance and cues. PT-Balance Assessment Sitting Balance and Reactions Static Sitting Balance Ability Good Dynamic Sitting Balance Ability Good Standing Balance and Reactions Static Standing Balance Ability Fair Dynamic Standing Balance Ability Fair Device Used FWW M5 PT-IP Objective Assessments Start: 11/20/21 09:38 Freq: Status: Active Protocol: Document 11/20/21 10:27 MB (Rec: 11/20/21 10:48 MB [id number]) Orientation Orientation/Cognition Level of Alertness Alert Orientation Name,Age,Birthday,Month, Situation Language Function Ability Hard of Hearing Safety Awareness Decreased Safety Awareness Comments Mostly, pt is lethargic this morning and occ is slow to answer questions. She also needs her hearing aides, per pt. Gross Range of Motion Upper Extremity ROM Assessment Right Impaired Impairments Pt reports right shoulder dislocation Lower Extremity ROM Assessment Bilaterally Impaired Impairments R LE with tone changes and limited DF and eversion, left LE is grossly functional and does have increased tension PFs Strength Comments Strength Comments MMT deferred d/t pt is overall cachexic in appearance and has known wound challenges and right shoulder dislocation from the past per pt report M6 PT-IP Treatment Start: 11/20/21 09:38 Freq: Status: Active Protocol: Document 11/23/21 11:06 KS (Rec: 11/23/21 12:22 ID [id number]) Physical Therapy Treatment Exercises Exercises Ankle Pumps,Gluteal Sets,Quad Sets,Heel Slides Education Education Provided Safety Other Treatments Other Treatment Performed noted slow mental processing this visit M7 PT-IP Assessment and Plan Start: 11/20/21 09:38 Freq: Status: Active Protocol: Document 11/23/21 11:06 KS (Rec: 11/23/21 12:22 ID [id number]) PT Summary Assessment and Plan Potential Rehabilitation Potential Fair Summary Impairments Pain,ROM,Strength,Balance,Tone ,Bed Mobility,Transfers,Gait, Activity Tolerance Progress Towards Goals Slow Progress due to Activity Tolerance Assessment Summary Pt able to make some improvements w/ mobility and ambulation this visit. She continues to require assistance w/ FWW and cues for safety. She remains limited by weakness and sometimes has poor safety awareness. At this time, she is unsafe to return home and will require SNF to improve strength, stability, and functional independence. Goals Bed Mobility Goal Independent Transfer Goal Independent,Front Wheeled Walker Gait Goal Independent,Front Wheel Walker Gait Distance 50 Days to Meet Goals 5 Frequency of Treatment Frequency Of Treatment Once a Day Treatment Plan Physical Therapy Treatment Plan Bed Mobility Training,Transfer Training,Gait Training, Therapeutic Exercise,Balance Retraining,Discharge Planning, Neuromuscular Re-ed Other Recommendations and Next Treatment standing balance training to Focus assist with safe ADL's such as clothing management when toileting Precautions Other Precautions hx of falls, waffle cushion in chair due to sacral wounds Recommendations To Nursing Amount of Assist Needed 1 Person Assist Discharge Recommendations PT Discharge Recommendations SNF Rehab Transportation Needs at Discharge Wheelchair/Cabulance
[2021-11-23 12:00] VITALS: BP 135/66; PULSE 57; RESP 14; TEMP 37.2; O2SAT 100
--- NOTE | 2021-11-23 12:50 | CM.DPC ---
Addendum entered by Lina Connolly R.N. 11/23/21 17:23: CM faxed DC summary and HH resumption order to [facility]. Lina Connolly RN Case Manger Addendum entered by Lina Connolly R.N. 11/23/21 16:21: CM spoke to the patient and she really wants cabulance and is now willing to pay for it. Cm attempted to call [facility] and [facility] both are not available for transport today. patients daughter is still planning on picking her up tonight at 530pm. CM updated the patients nurse. Lina Connolly RN case manger. Addendum entered by Lina Connolly R.N. 11/23/21 15:08: CM spoke with patient who stated she is doing better. CM informed the patient that [facility] still has not authorized her SNF stay at this time and CM is not sure they will based on the fact that she ambulated 200 feet with PT today and is only a stand by assist. patient stated she can go home but is concerned about how she will get home since there is no one to pick her up and she will need transport home but doesn't have the money to pay for it. CM will call [facility] to see if they can [facility]. CM also gave the patient a senior resources guide with a list of private pay rn progressive care unit services that she could have to help her at home. patient also asked to get detailed instructions on how to [facility] that way she takes them appropriately. CM will speak with patients nurse so she goes over it during her DC instructions. NADINE spoke with patients daughter who will be by to pick the patient up and bring her home at 530pm today. NADINE spoke with her daughter about her concerns about getting into the [facility] and was concerned she wont be able to get into the car. However patient does not want to pay $150-$300 dollars for a cabulance or up to $2400 for BLS transport home - which CM and patient agreed she doesn't need. patient also does not want to pay for a taxi for [facility]. NADINE spoke with patients nurse Jony and she agrees that patient should be able to get into the car and she her daughter will be her at 530pm to provide Transport home. NADINE will fax DC summary to [facility] when it is ready. Lina Connolly RN Case Manger Original Note: DCP Continued: CM called [employer] to check on [facility] auth for [facility]. CM called to check on the [facility] auth. The SNF Auth is pending currently according to [facility] . CM called [facility]. If [facility] denies the auth patient will be DC home with [facility] resumed and with her daughter. CM will continue to work to get patient either to SNF or home with HH. Lina Connolly RN Case Manger
[2021-11-23] MEDS: MULTIVITAMIN 1 TABLET 1 TAB PO (15:09)
--- NOTE | 2021-11-23 15:43 | P.DS_ITS ---
History of Present Illness History of Present Illness Date Patient Seen: 11/23/21 Chief complaint: GLF Narrative: Dorothy Meade an? 86-year-old female resident of [facility] independent living with a history of multiple sclerosis, restless leg syndrome, and multiple orthopedic fractures and osteoporosis presented to the emergency department after a fall she sustained this evening.? She is quite debilitated and per the emergency department provider she was too weak to ambulate independently and found to have a left lower lobe pneumonia.? The patient states that she lives in a 1 bedroom apartment with her daughter and she occupies the living room.? She stated that she was in the kitchen and apparently fell and hit the back of her head.? She states she is supposed to have home health nursing come in and see her every other day for wound care.? She states that the daughter does not help her out because the daughter has health issues herself.? She states that her grandson is her power of erisa attorney.? Her main concerns today are generalized weakness, she denies fever sweats or chills, denies difficulty breathing, chest pain, nausea vomiting, abdominal pain, she states she has multiple wounds on her legs and is concerned about the bump on her head. She does endorse having sign ificant restless legs and when she was at the rehab facility, she stated that they would not give it to her. The emergency department called the daughter to have the patient? transported back home and was informed that she could not come and get her.? When they attempted to ambulate her with a walker she also failed a walk test. CT of the C-spine indicated multilevel degenerative disc disease, grade 1 anterior spondylolisthesis at C3 to for, C7-T1, a wedge-shaped anterior compression fracture at T4 and T7.? The T7 compression fracture showed increasing height loss compared to the most recent CT of September 29, 2021 and the T4 compressions fracture has not changed.? There are also fractures through T2 and T3 spinous process also seen on September 29, [address] of the head only reported atrophy and chronic ischemic changes with no acute hemorrhage or mass effect.? Chest x-ray indicated a right lower lobe pulmonary infiltrate consistent with pneumonia.? Patient's vital signs are unremarkable, she is mildly anemic with a hemoglobin of 10.9 and hematocrit of 32.4, platelet count is 167, mildly elevated glucose of 138, magnesium 2.5, AST 44, total CK 175, CK- MB 4.87, troponin within normal limits, and COVID-19 PCR is negative. Discharge Providers Provider Date of admission: 11/20/21 00:56 Discharge Date: 11/23/21 Primary care physician: Blayne Sims MD Consults: 11/20/21 01:52 Consult to Discharge Planning Routine Comment: frequent falls, need for LTC Consult to Physical Therapy Evaluate & Treat Comment: Frequent falls at home. Physician Instructions: Evaluate and Treat 11/20/21 02:58 Consult to [employer] - Band Tacker Routine Comment: [facility]/daughter, suboptimal situatio [employer] Consult: [facility] Need Discharge provider: Sharon Hua, Summary Hospital Course Discharge Diagnosis: FALL. ? GROUND LEVEL.SECONDARY TO PHYSICAL DECONDITIONING /DEBILITY POSSIBLE COMMUNITY-ACQUIRED PNEUMONIA.? NO SIGN OF ACUTE RESPIRATORY FAILURE SCALP HEMATOMA.? SECONDARY TO FALL. MONITOR ONLY MULTIPLE SCLEROSIS PER HISTORY.? AWARE.? AT BASELINE. OUTPATIENT MANAGEMENT PHYSICAL DEBILITY/DECONDITIONING. DISCHARGE WITH HOME HEALTH DEMENTIA.? APPEARED TO BE AT BASELINE MENTALLY ?BRADYCARDIA.? SINUS. AVOID BETA-TOYA Hospital Course: PATIENT WAS TREATED IN THE HOSPITAL AFTER A FALL. SHE WAS MANAGED CONSERVATIVELY DUE TO NO SIGN OF ACUTE FRACTURE INITIAL IMAGING. SHE HAS BEEN SHOWING SIGN OF PHYSICAL DECONDITIONING WELL. SHE DOES HAVE MULTIPLE SCLEROSIS ALSO LIKELY CONTRIBUTING TO THE ABOVE. IN ANY CASE AT THIS TIME HER LABS AND VITALS HAS BEEN STABLE. SHOULD BE DISCHARGED TO HOME WITH HOME HEALTH. PATIENT HAS BEEN AMBULATING OVER 200 FT WITH PHYSICAL THERAPY AND WILL NOT CRITERIA FOR [facility] FACILITY PLACEMENT Status at Discharge Cognitive/behavioral status at discharge: oriented Functional status at discharge: independent ambulation Overall status at discharge: patient is progressing back to baseline Time Spent with Patient Time spent: Greater than 30 minutes Exam Vital Signs (past 8 hours): - 11/23/21 08:32 11/23/21 08:34 11/23/21 12:00 Temperature 98.9 F Pulse Rate 59 L 57 L Respiratory Rate 14 Blood Pressure 151/75 H 135/66 Pulse Oximetry 97 100 Oxygen Delivery Method Room Air Oxygen Flow Rate 0 Narrative Exam Narrative: NO ACUTE DISTRESS.? DEMENTIA HEAD ATRAUMATIC NORMOCEPHALIC NECK : SUPPLE WITHOUT ADENOPATHY NO CAROTID BRUITS EYE:? EOMI, PERRLA, NORMAL CONJUNCTIVA; NO JAUNDICE CHEST:? REGULAR RATE.? ? NO RUBS.? PMI IS NON DISPLACED.? NO MURMURS; NORMAL S1- S2 PULMONARY:? DECREASED BS OVER THE BASES.? MILD BIBASILAR CRACKLES NOTED; NO INCREASED DULLNESS TO PERCUSSION ABDOMEN:? SOFT.? NONTENDER.? NONDISTENDED.? BOWEL SOUNDS ARE PRESENT IN ALL 4 QUADRANTS. ? EXTREMITIES:? ? NO CYANOSIS OR CLUBBING NOTED. NEURO:? CRANIAL NERVES 2-12 GROSSLY INTACT. NO FOCAL NEUROLOGICAL DEFICIT NOTED. MSK:? NO DEFORMITIES.? SOME DISCOMFORT WITH ACTIVE AND PASSIVE RANGE OF MOTION PSYCH :? CALM.? COOPERATIVE Objective Labs Result Diagrams: 11/22/21 05:55 11/22/21 05:55 PFSH Medical History Hyperlipidemia Hypertension, essential Hypothyroid Left femoral shaft fracture Multiple sclerosis Surgical History H/O cataract removal with insertion of prosthetic lens H/O esophageal hernia repair Family History Father Asthma Mother Colon cancer Social History household members: children Smoking Status: Former smoker alcohol intake: current Discharge Plan Discharge Plan Patient Disposition: Home Health Service Nursing Discharge Comment: PLEASE RESUME PREVIOUS HOME HEALTH SERVICE Discharge orders & Medications Prescriptions: New acetaminophen 650 mg tablet extended release 650 mg PO Q8H PRN (Reason: fever or pain) Qty: 60 0RF nifedipine 30 mg Tablet Extended Release 24hr 30 mg PO DAILY Qty: 60 0RF sennosides [senna] 8.6 mg Tablet 8.6 mg PO BID Qty: 30 0RF polyethylene glycol 3350 17 gram Powder In Packet 17 gm PO DAILY Qty: 30 0RF calcium carbonate [Calcium 600] 600 mg calcium (1,500 mg) Tablet 600 mg PO DAILY Qty: 30 0RF fentanyl 12 mcg/hr Patch 72 Hour 12 mcg topical Q72H Qty: 5 0RF cholecalciferol (vitamin D3) [Vitamin D3] 125 mcg (5,000 unit) Tablet 5,000 unit PO DAILY Qty: 30 0RF oxycodone 5 mg capsule 5 mg PO Q8H PRN (Reason: pain) Qty: 10 0RF Continued Restasis 0.05 % Dropperette 1 drp OPHTHALMIC (EYE) DIRECTED Qty: 0 0RF aspirin 81 mg Tablet,Delayed Release (Dr/Ec) 81 mg PO DAILY Qty: 0 0RF multivitamin [Multiple Vitamins] 1 EACH tablet 1 tab PO QDAY Qty: 0 0RF ascorbic acid (vitamin C) 500 MG tablet 500 mg PO QDAY Qty: 0 0RF cyanocobalamin (vitamin B-12) [Vitamin B-12] 5,000 MCG tablet, sublingual 5,000 mcg Sublingual QDAY Qty: 0 0RF tolterodine 4 mg Capsule,Extended Release 24hr 4 mg PO DAILY 0RF rosuvastatin 10 mg Tablet 10 mg PO DAILY 0RF losartan 25 mg Tablet 50 mg PO DAILY 0RF epinastine 0.05 % Drops 1 drp OPHTHALMIC (EYE) BID 0RF Rx Instructions: instill 1 drop in both eyes twice daily levothyroxine 112 mcg capsule 112 mcg PO DAILY 0RF pramipexole 0.75 mg tablet 0.75 mg PO TID 0RF Rx Instructions: take 1 tablet by mouth three times daily Discontinued calcium carbonate [Tums] 500 MG tablet,chewable 1,000 mg PO PRN PRN (Reason: Acid Reflux) Qty: 0 0RF acetaminophen 325 mg Tablet 975 mg PO Q8H Qty: 30 0RF oxycodone 5 mg Tablet 5 mg PO Q4H PRN (Reason: Pain, Moderate (4-6)) Qty: 10 0RF fentanyl 12 mcg/hr Patch 72 Hour 12 mcg topical Q72H Qty: 4 0RF No Action (DME) Respironics Dreamstation CPAP Qty: 1 0RF Dose Instruction: As directed Label Comments: Pressure: 7-14 cmH2O DME: [facility] Rx Instructions: As directed Follow up/Referrals: Blayne Sims MD [Primary Care Provider] - Diet/Activity/Treatments Diet: Low-sodium and Low-cholesterol Activity: TOLERATED Skin/Wound/Dressing Care Report to your healthcare provider any signs of infection, such as:: chills, fever and night sweats Discharge Data Primary Care Provider: Blayne Sims V Quality VTE Deep Vein Thrombosis/Pulmonary Embolism Present on Admission: Yes
--- NOTE | 2021-11-23 17:19 | CM.SWNOTE ---
UNCRATER Note UNCRATER makes APS referral due to concern for self neglect and concern for the care patient is receiving by daughter. APS Online Report Confirmation Number: [id number] MARYLOU Milner
--- NOTE | 2021-11-23 17:46 | PC.NURSE ---
Addendum entered by Jony Skaggs R.N. 11/23/21 18:53: Reviewed all of patient's discharge instructions, medications and home care handouts with patient. She remains anxious about going home instead of to a care home facility. She attempted to have a wheelchair transport to come pick her up because she states her daughters VW bug is too small for her to ride in easily, they were not available. Her daughter was called again and agreed to come pick her up. Patient requested to take her tylenol and mirapax for her restless legs prior to discharge so she can go home and sleep tonight. Patient states she does not have anyone to rock picker her medications until tomorrow morning but she feels set for the night. Patient instructed to call her PCP office tomorrow to schedule a follow up as well as discuss her medications and refills needed further. Patient's IV was dc'd and escorted out via wheelchair to discharge to home with her daughter. Original Note: Patient had a lot of questions about her medications, Pharmacist did extensive teaching with patient. Patient is currently up eating dinner and would like to review discharge instructions again afterwards. She states that she does not want her daughter her to review the medications because she would not be able to handle it and she has always organized her own medicines. Per Lina in case management Home health services will be calling patient tomorrow morning to arrange time to come. IV dc'd intact.
[2021-11-23] MEDS: PRAMIPEXOLE 0.25 MG TABLET 0.75 MG PO (18:45)
--- NOTE | 2021-11-30 12:59 | CM.DPC ---
SW received a call from pt's Dtr stating she has concerns with pt return to [facility] where she stays with pt and her level of care needs and basically stating pt needs increased care at like Assisted Living but that pt has not been agreeable to this. SW discussed purpose of hospital meeting acute medical need and then d/c to lower level of care but not having the ability to fix all LTC needs and inability for health care providers to force pt into assisted living and encouraged her to begin talking to pt about her limits with assisting pt and then encouarging pt to tour some [facility] in the area as [facility] will likely start stating that pt has too high care needs to remain living there. KERLINE also provided contact info for [facility] as pt had Resume Orders at d/c and Dtr stating they only saw the HH RN on Monday11/26/21. MARYLOU Romero
== END 2021-11-23 19:06 | disposition home health service (06) | DRG 194 ==
LOC: ED 11-20 00:52 → AC 11-20 00:57
PROVIDERS: Admitting Provider Nurse Practitioner Family; Emergency Provider Emergency Medicine; PCP Internal Medicine; Referring Provider Emergency Medicine; Visit Provider Nurse Practitioner Family
DX: J18.9 Pneumonia, unspecified organism (principal); M80.88XA Other osteoporosis with current pathological fracture, vertebra(e), initial encounter for fracture; G35 Multiple sclerosis; R00.1 Bradycardia, unspecified; S00.03XA Contusion of scalp, initial encounter; W19.XXXA Unspecified fall, initial encounter; I10 Essential (primary) hypertension; E03.9 Hypothyroidism, unspecified; E78.5 Hyperlipidemia, unspecified; G25.81 Restless legs syndrome; Z20.822 Contact with and (suspected) exposure to COVID-19; Z66 Do not resuscitate; Z87.891 Personal history of nicotine dependence; Z91.81 History of falling
CPT/HCPCS: 36415; 70450; 71045; 72125; 80048; 80053; 80076; 82550; 82553; 82962; 83690; 83735; 83880; 84484; 85025; 87040; 87086; 87635; 93005; 94762; 97110; 97116; 97161; 97530; 99285; C9803; J1650; J7050

== ENCOUNTER → 2021-11-29 11:00 | Outpatient (CLI) | payer MEDICARE, SELFPAY ==
[2021-11-20 03:13] VITALS: BMI 20.4
== END ==
PROVIDERS: PCP Internal Medicine; Referring Provider Internal Medicine; Visit Provider Family Medicine
DX: I87.2 Venous insufficiency (chronic) (peripheral) (principal); L97.312 Non-pressure chronic ulcer of right ankle with fat layer exposed; R60.0 Localized edema; L95.0 Livedoid vasculitis; I73.9 Peripheral vascular disease, unspecified; L89.323 Pressure ulcer of left buttock, stage 3; L89.213 Pressure ulcer of right hip, stage 3; G35 Multiple sclerosis; M62.81 Muscle weakness (generalized); R26.89 Other abnormalities of gait and mobility; R29.6 Repeated falls; Z74.09 Other reduced mobility
CPT/HCPCS: 11042; 99213; 99214

== ENCOUNTER 2021-12-03 21:25 | Observation (INO) | payer MEDICARE, SELFPAY ==
[2021-11-20 03:13] VITALS: BMI 20.4
--- NOTE | 2021-12-03 21:26 | ED.WEAKNESS ---
HPI - Weakness General Chief complaint: Fall Stated complaint: GLF, leg pain Time Seen by Provider: 12/03/21 21:29 History of Present Illness HPI Narrative: 86F former smoker with a history of MS, hyperlipidemia, frequent falls, and recent admission for weakness, hyponatremia (129), fall with rib fractures presents by EMS for evaluation. She had been attempting to ambulate using her walker when she did not have enough strength to keep herself up, in doing so she fell slowly onto the ground and was unable to get off the ground for many hours, approaching a whole day. She lives at home with her daughter who was unable to help her. Eventually due to the difficulty they called EMS. She has had no fever or chills. She denies any injury to her head, neck or back as a consequence of her fall. She denies any nausea, vomiting or diarrhea. She is profoundly weak and states that she was supposed to have home nursing and physical therapy come to her house after her last discharge but no one has ever come. She is requesting help and states that she probably needs a half-way she has had no difficulty with urination, frequency, urgency or other. She has a very poor historian Related Data Home Medications Medication Instructions Recorded Confirmed aspirin 81 mg tablet,delayed 81 mg PO DAILY #0 05/08/12 12/04/21 release cyclosporine 0.05 % eye drops in a 1 drp OPHTHALMIC (EYE) DIRECTED 05/08/12 11/20/21 dropperette (Restasis) #0 ascorbic acid (vitamin C) 500 mg 500 mg PO QDAY #0 08/14/17 12/04/21 tablet cyanocobalamin (vitamin B-12) 5,000 mcg SUBLINGUAL QDAY #0 08/14/17 12/04/21 5,000 mcg sublingual tablet (Vitamin B-12) multivitamin (Multiple Vitamins) 1 tab PO QDAY #0 08/14/17 11/20/21 levothyroxine 112 mcg capsule 112 mcg PO DAILY 05/28/18 12/04/21 pramipexole 0.75 mg tablet 0.75 mg PO TID 05/28/18 11/20/21 Respironics Dreamstation CPAP #1 ea 04/08/19 11/21/21 epinastine 0.05 % eye drops 1 drp OPHTHALMIC (EYE) BID 11/13/19 11/20/21 losartan 25 mg tablet 50 mg PO DAILY 11/13/19 12/04/21 rosuvastatin 10 mg tablet 10 mg PO DAILY 10/01/21 12/04/21 tolterodine 4 mg capsule,extended 4 mg PO DAILY 10/01/21 12/04/21 release 24 hr olopatadine 0.1 % eye drops 1 drp EYE-BOTH BID 12/04/21 12/04/21 oxybutynin chloride 5 mg tablet 5 mg PO BEDTIME 12/04/21 12/04/21 Previous Rx's Medication Instructions Recorded calcium carbonate 600 mg calcium 600 mg PO DAILY #30 tab 11/23/21 (1,500 mg) tablet (Calcium) cholecalciferol (vitamin D3) 125 5,000 unit PO DAILY #30 tab 11/23/21 mcg (5,000 unit) tablet (Vitamin D3) fentanyl 12 mcg/hr transdermal 12 mcg TOPICAL Q72H #5 ea 11/23/21 patch nifedipine 30 mg tablet,extended 30 mg PO DAILY #60 tab 11/23/21 release 24 hr oxycodone 5 mg capsule 5 mg PO Q8H PRN #10 cap 11/23/21 polyethylene glycol 3350 17 gram 17 gm PO DAILY #30 ea 11/23/21 oral powder packet sennosides 8.6 mg tablet (senna) 8.6 mg PO BID #30 tab 11/23/21 Allergies Allergy/AdvReac Type Severity Reaction Status Date / Time metoclopramide [From REGLAN] Allergy Severe UNCONTROLBLE Verified 11/05/21 13:16 LIMB MOVEMENTS Penicillins [PENICILLINS] Allergy Unknown RASH Verified 09/29/21 13:41 Sulfa (Sulfonamide Allergy Verified 09/29/21 13:41 Antibiotics) Review of Systems Review of Systems Narrative: GENERAL: See HPI HEENT: Denies sinus pain, ear pain, sore throat, difficulty swallowing, dizziness. RESPIRATORY: Denies dyspnea, cough, wheezing, hemoptysis, sputum. CARDIOVASCULAR: Denies chest pain, palpitations, orthopnea, edema, GASTROINTESTINAL: Denies nausea, vomiting, abdominal pain, diarrhea, constipation, melena. : Denies dysuria, frequency, incontinence, hematuria, urinary retention. MUSCULOSKELETAL: denies weakness, joint pain, or bony pain SKIN: Denies rash, skin lesions, or other NEUROLOGIC: Denies weakness, headache, numbness, change in speech, confusion, seizures, incoordination. PSYCHIATRIC: No concerning psychosocial issues. 12 point review of systems is negative except for those stated above Patient History Medical History Hyperlipidemia Hypertension, essential Hypothyroid Left femoral shaft fracture Multiple sclerosis Surgical History H/O cataract removal with insertion of prosthetic lens H/O esophageal hernia repair Family History Father Asthma Mother Colon cancer Social History household members: children Smoking Status: Former smoker alcohol intake: current Exam Narrative Exam Narrative: GENERAL: [86 year old patient appears stated age. Frail and elderly, pleasantly confused, GCS 14 HEAD: Atraumatic. Normocephalic. EYES: Pupils equal round and reactive. Extraocular motions intact. No scleral icterus. No injection or drainage. ENT: Nose without bleeding, purulent drainage. Throat without erythema, tonsillar hypertrophy or exudate. Airway patent. NECK: Trachea midline. Non tender CARDIOVASCULAR: Regular rate and rhythm without murmurs, gallops, or rubs. RESPIRATORY: Clear to auscultation. Breath sounds equal bilaterally. No wheezes, rales, or rhonchi. GASTROINTESTINAL: Abdomen soft, non-tender, nondistended. EXTREMITIES: No edema or joint tenderness. BACK: Nontender without deformity or crepitance. No flank tenderness. NEURO: AOx3. SKIN: No rash or erythema of visible areas Initial Vital Signs Initial Vital Signs: Vital Signs Temperature 97.3 F L 12/03/21 21:42 Pulse Rate 71 12/03/21 21:42 Respiratory Rate 20 12/03/21 21:42 Blood Pressure 121/59 L 12/03/21 21:42 Pulse Oximetry 99 12/03/21 21:42 Course Orders Ordered: Acetaminophen (Acetaminophen 325 Mg Tablet) 650 mg PO Q6HR PRN PRN Reason: Fever/Mild Pain (1-3) Last Admin: 12/04/21 15:23 Dose: 650 mg Documented by: ALFREDO Aspirin (Aspirin Ec 81 Mg Tablet) 81 mg PO DAILY HALEY Last Admin: 12/04/21 09:11 Dose: 81 mg Documented by: ALFREDO Atorvastatin Calcium (Atorvastatin 20 Mg Tablet) 20 mg PO DAILY [facility] Last Admin: 12/04/21 09:11 Dose: 20 mg Documented by: ALFREDO Bisacodyl (Bisacodyl 5 Mg Tablet) 10 mg PO BID PRN PRN Reason: Constipation Enoxaparin Sodium (Enoxaparin 40 Mg/0.4 Ml Syringe) 40 mg SUBCUT DAILY [facility] Last Admin: 12/04/21 09:12 Dose: 40 mg Documented by: ALFREDO Ibuprofen (Ibuprofen 600 Mg Tablet) 600 mg PO Q6HR PRN PRN Reason: Fever/Mild Pain (1-3) Last Admin: 12/04/21 16:38 Dose: 600 mg Documented by: ALFREDO Levothyroxine Sodium (Levothyroxine 112 Mcg Tablet) 112 mcg PO DAILY@0600 [facility] Last Admin: 12/04/21 06:30 Dose: 112 mcg Documented by: MOR Losartan Potassium (Losartan 25 Mg Tablet) 50 mg PO DAILY [facility] Last Admin: 12/04/21 09:12 Dose: 50 mg Documented by: ALFREDO Naloxone HCl (Naloxone 0.4 Mg/Ml Vial) 0.2 mg IV Q2MIN PRN PRN Reason: Opiate Reversal Nifedipine (Nifedipine 30 Mg Tab Er) 30 mg PO DAILY [facility] Last Admin: 12/04/21 09:12 Dose: 30 mg Documented by: ALFREDO Ondansetron HCl (Ondansetron 4 Mg/2 Ml Inj) 4 mg IV Q8HR PRN PRN Reason: Nausea And Vomiting Oxybutynin Chloride (Oxybutynin 5 Mg Er Tab) 10 mg PO DAILY [facility] Last Admin: 12/04/21 09:12 Dose: 10 mg Documented by: ALFREDO Polyethylene Glycol (Polyethylene Glycol 3350 17 Gm Powd.Pack) 17 gm PO DAILY [facility] Last Admin: 12/04/21 09:12 Dose: 17 gm Documented by: ALFREDO Pramipexole Dihydrochloride (Pramipexole 0.25 Mg Tablet) 0.75 mg PO TID [facility] Last Admin: 12/04/21 20:01 Dose: 0.75 mg Documented by: Admin: 12/04/21 15:26 Dose: 0.75 mg Documented by: Admin: 12/04/21 09:12 Dose: 0.75 mg Documented by: Admin: 12/04/21 06:24 Dose: Not Given Documented by: MOR Sennosides (Sennosides 8.6 Mg Tablet) 8.6 mg PO BID [facility] Last Admin: 12/04/21 20:01 Dose: 8.6 mg Documented by: Admin: 12/04/21 09:11 Dose: 8.6 mg Documented by: ALFREDO Vitamin D (Cholecalciferol (Vitamin D3) 5,000 Unit Tablet) 5,000 unit PO DAILY [facility] Last Admin: 12/04/21 09:12 Dose: 5,000 unit Documented by: ALFREDO Discontinued Medications Sodium Chloride (Normal Saline 0.9%) 1,000 mls @ 100 mls/hr IV CONT HALEY Stop: 01/03/22 07:29 Last Infusion: 12/04/21 14:00 Dose: 0 mls/hr Documented by: Admin: 12/04/21 07:50 Dose: 100 mls/hr Documented by: Infusion: 12/04/21 05:58 Dose: 100 mls/hr Documented by: Infusion: 12/04/21 05:44 Dose: 100 mls/hr Documented by: Admin: 12/03/21 21:55 Dose: 125 mls/hr Documented by: ANNEROERIC Oxybutynin (Oxybutynin 5 Mg Tablet) 5 mg PO BEDTIME [facility] Sennosides (Sennosides 8.6 Mg Tablet) 17.2 mg PO BEDTIME [facility] Last Admin: 12/04/21 21:14 Dose: Not Given Documented by: MANAV Vital Signs Vital signs: Vital Signs - 8 hr 12/03/21 21:42 Temperature 97.3 F L Pulse Rate 71 Respiratory Rate 20 Blood Pressure 121/59 L Pulse Oximetry 99 MDM - Weakness Lab Data Result diagrams: 12/04/21 07:47 12/04/21 07:47 Labs: Lab Results 12/03/21 12/03/21 12/03/21 Range/Units 21:50 21:50 21:50 WBC 7.4 (4.5-11.0) X10^3/uL RBC 3.26 L (4.0-5.2) X10^6/uL Hgb 9.9 L (12.0-16.0) g/dL Hct 29.2 L (36-46) % MCV 89.6 (80-100) fL MCH 30.4 (26-34) PG MCHC 34.0 (30-36) % RDW 16.1 H (11.6-14.8) % Plt Count 169 (150-400) X10^3/uL Neut % (Auto) 83.0 H (50-75) % Lymph % (Auto) 8.8 L (25-40) % [place] % (Auto) 6.4 (3-14) % Eos % (Auto) 0.9 L (2-4) % Baso % (Auto) 0.9 (0-2) % Neut # (Auto) 6200 (2508-5096) /uL Lymph # (Auto) 700 L (3589-7515) /uL [place] # (Auto) 500 (0-900) /uL Eos # (Auto) 100 (0-450) /uL Baso # (Auto) 100 (0-100) /uL Sodium 137 (137-145) mmol/L Potassium 4.2 (3.4-5.1) mmol/L Chloride 105 (98-107) mmol/L Carbon Dioxide 26 (22-32) mmol/L BUN 38 H (7-17) mg/dL Creatinine 0.78 (0.52-1.04) mg/dL Estimated GFR > 60.0 (>60) mL/min BUN/Creatinine Ratio 48.7 H (6-22) Glucose 115 H (80-110) mg/dL Calcium 9.5 (8.4-10.2) mg/dL Magnesium 2.2 (1.6-2.3) mg/dL Total Bilirubin 0.6 (0.2-1.3) mg/dL AST 47 H (14-36) IU/L ALT 25 (<35) IU/L Alkaline Phosphatase 79 (38-126) U/L Total Creatine Kinase 216 H (30-135) U/L CK-MB (CK-2) 4.01 H (<2.37) ng/mL CK-MB (CK-2) Rel Index 1.9 (1.5-5.0) % Troponin I 0.016 (0.01-0.034) ng/mL NT-Pro-B Natriuret Pep 445 (<450) pg/mL Total Protein 6.6 (6.3-8.2) g/dL Albumin 3.7 (3.5-5.0) g/dL Globulin 2.9 (1.7-4.1) g/dL Albumin/Globulin Ratio 1.3 (1.0-2.8) SARS-CoV-2 (PCR) Negative (Negative) Imaging Data Chest x-ray: Radiologist Impression: [address] [id number] XRay Report Signed Patient: Dorothy Jacob MR#: [id number] : 1935 Acct:[id number] Age/Sex: 86 / F Date of Service: 12/03/21 Loc: ED Accession Number: [id number] ?? Procedure: XR chest 1V Ordering Provider: [place] D.O. PROCEDURE:? XR CHEST 1V ? INDICATIONS:? Shortness of breath, fall, weakness ? TECHNIQUE:? One view of the chest was acquired.? ? COMPARISON:? [facility], CT, CT CHEST WO CON, 09/29/2021, 15:04.? [facility], CR, XR CHEST 2V, 11/05/2021, 13:23.? [facility], CR, XR CHEST 1V, 11/19/2021, 22:48. ? FINDINGS:? ? Surgical changes and devices:? None.? ? Lungs and pleura:? Redemonstration of linear bibasilar opacities more pronounced on the left likely representing subsegmental atelectasis versus scarring.? No focal consolidation.? No pleural effusions or pneumothorax.? ? Mediastinum:? Mediastinal contours appear normal.? Heart size is normal.? ? Bones and chest wall:? Healed rib fracture deformities of the left ribs.? No suspicious bony lesions.? Overlying soft tissues appear unremarkable.? ? IMPRESSION:? Chest without acute cardiopulmonary abnormalities. ? ? Dictated by: Jake Alonzo M.D. on 12/03/2021 at 22:52 ? ? Approved by: Jake Alonzo M.D. on 12/03/2021 at 22:53 ? Discharge Plan Departure Patient Disposition: Admitted as Observation Clinical Impression: Adult failure to thrive, Fall, Weakness Admit Date/Time: 12/04/21 00:01 Admit Provider: Guadalupe Chan
[2021-12-03 21:33] VITALS: BMI 21.1
[2021-12-03 21:42] VITALS: BP 121/59; PULSE 71; RESP 20; TEMP 36.3; O2SAT 99
[2021-12-03] MEDS: SODIUM CHLORIDE 0.9% 1,000 ML 125 ML IV (21:55)
[2021-12-03 22:00] LABS: Add Manual Diff / Slide Review NO; Basophils Absolute Auto 100 /uL (0-100); Basophils Percent Auto 0.9 % (0-2); Eosinophils Absolute Auto 100 /uL (0-450); Eosinophils Percent Auto 0.9 % (2-4); Hematocrit 29.2 % (36-46); Hemoglobin 9.9 g/dL (12.0-16.0); Lymphocytes Absolute Auto 700 /uL (1100-4500); Lymphocytes Percent Auto 8.8 % (25-40); Mean Corpuscular Hemoglobin 30.4 PG (26-34); Mean Corpuscular Volume 89.6 fL (80-100); Monocytes Absolute Auto 500 /uL (0-900); Monocytes Percent Auto 6.4 % (3-14); Neutrophils Absolute Auto 6200 /uL (1500-7000); Platelet Count 169 X10^3/uL (150-400); Red Blood Cell Count 3.26 X10^6/uL (4.0-5.2); Red Cell Distribution Width 16.1 % (11.6-14.8); White Blood Cell Count 7.4 X10^3/uL (4.5-11.0)
[2021-12-03 22:08] LABS: Alanine Aminotransferase 25 IU/L (<35); Albumin 3.7 g/dL (3.5-5.0); Albumin Globulin Ratio 1.3 (1.0-2.8); Alkaline Phosphatase 79 U/L (38-126); Aspartate Aminotransferase 47 IU/L (14-36); BUN Creatinine Ratio 48.7 (6-22); Bilirubin Total 0.6 mg/dL (0.2-1.3); Blood Urea Nitrogen 38 mg/dL (7-17); Calcium 9.5 mg/dL (8.4-10.2); Carbon Dioxide 26 mmol/L (22-32); Chloride 105 mmol/L (98-107); Creatine Kinase 216 U/L (30-135); Estimated Glomerular Filt Rate > 60.0 mL/min (>60); Globulin 2.9 g/dL (1.7-4.1); Glucose 115 mg/dL (80-110); HEMOLYSIS < 15 (0-50); Magnesium 2.2 mg/dL (1.6-2.3); Potassium 4.2 mmol/L (3.4-5.1); Sodium 137 mmol/L (137-145); Total Protein 6.6 g/dL (6.3-8.2)
[2021-12-03 22:20] LABS: NT-proBNP (BNP-Adult 18+) 445 pg/mL (<450); Troponin I 0.016 ng/mL (0.01-0.034)
[2021-12-03 22:23] LABS: CKMB % Relative Index 1.9 % (1.5-5.0); Creatine Kinase MB 4.01 ng/mL (<2.37)
--- NOTE | 2021-12-03 22:27 | DI.RAD.S_ITS ---
PROCEDURE: XR CHEST 1V INDICATIONS: Shortness of breath, fall, weakness TECHNIQUE: One view of the chest was acquired. COMPARISON: [facility], CT, CT CHEST WO CON, 09/29/2021, 15:04. [facility], CR, XR CHEST 2V, 11/05/2021, 13:23. [facility], CR, XR CHEST 1V, 11/19/2021, 22:48. FINDINGS: Surgical changes and devices: None. Lungs and pleura: Redemonstration of linear bibasilar opacities more pronounced on the left likely representing subsegmental atelectasis versus scarring. No focal consolidation. No pleural effusions or pneumothorax. Mediastinum: Mediastinal contours appear normal. Heart size is normal. Bones and chest wall: Healed rib fracture deformities of the left ribs. No suspicious bony lesions. Overlying soft tissues appear unremarkable. IMPRESSION: Chest without acute cardiopulmonary abnormalities. Dictated by: Jake Alonzo M.D. on 12/03/2021 at 22:52 Approved by: Jake Alonzo M.D. on 12/03/2021 at 22:53
[2021-12-03 23:20] LABS: COVID19 - ADMIT (NP swab/PCR) Negative (Negative)
[2021-12-04] VITALS (8 sets, daily range): BP systolic 110–138; BP diastolic 52–73; PULSE 62–67; RESP 16–20; TEMP 36.1–36.8; O2SAT 95–98; BMI 21.9
[2021-12-04] MEDS: LEVOTHYROXINE 112 MCG TABLET PO (06:30)
[2021-12-04] MEDS: SODIUM CHLORIDE 0.9% 1,000 ML 100 ML IV (07:50)
--- NOTE | 2021-12-04 07:56 | P.HP_ITS ---
History of Present Illness History of Present Illness Date Patient Seen: 12/04/21 Time Patient Seen: 05:45 Chief complaint: GLF, leg pain Narrative: Dorothy Jacob is an 86 year old resident of [facility] was recently discharged 10 days ago for fall she took a home. Today she presented to the emergency department with yet another fall at home. She states she was unable to get up and called 911. When asked about a previous admission and receiving home health services she stated that she never did hear from home health or physical therapy. She states that she has to arrange all of her services. She lives in an independent living situation at a senior housing facility where she also lives with her daughter. She previously and still states that her daughter does not help her out. During her prior admission there was some concern as to whether there was enough space for her and whether not it was a safe living situation and just prior to discharge on November 23, they did file an APS referral. Patient denies any shortness of breath, dizziness, chest pain, nausea vomiting, dysuria, diarrhea constipation. She does have a longstanding history of osteoporosis. Chest x-ray ordered in the emergency department was negative for any acute process. Patient is afebrile, blood pressure 125/59, heart rate 62, respiratory rate 18, oxygen saturation of 97% on room air, she weighs 58 kg with a BMI of 21.9. She is mildly anemic with a hemoglobin and hematocrit of 9.9 and 29.2, platelet count is 169, glucose is mildly elevated 115, AST 47, total creatinine kinase was 216, CK-MB was 4.01, rest of her chemistries are unremarkable, COVID- 19 PCR is negative. Patient History Medical History Hyperlipidemia Hypertension, essential Hypothyroid Left femoral shaft fracture Multiple sclerosis Surgical History H/O cataract removal with insertion of prosthetic lens H/O esophageal hernia repair Family & Social History Family History Father Asthma Mother Colon cancer Social History: household members children Prior Living Arrangements Apartment/Condo Safety & Behavioral: Feels Safe in Current Yes Environment Been Physically Hurt or No Threatened By a Person Suicidal Ideation Description None Suicide Plan Description No Plan Tobacco & Substance use: Tobacco type cigarettes Smoking Status Former smoker alcohol intake current alcohol intake frequency holiday/special occasion Substance Use Type does not use Meds Home Medications and Allergies Home Medications Medication Instructions Recorded Confirmed Type aspirin 81 mg tablet,delayed 81 mg PO DAILY #0 05/08/12 12/04/21 History release cyclosporine 0.05 % eye drops in a 1 drp OPHTHALMIC (EYE) DIRECTED 05/08/12 11/20/21 History dropperette (Restasis) #0 ascorbic acid (vitamin C) 500 mg 500 mg PO QDAY #0 08/14/17 12/04/21 History tablet cyanocobalamin (vitamin B-12) 5,000 mcg SUBLINGUAL QDAY #0 08/14/17 12/04/21 History 5,000 mcg sublingual tablet (Vitamin B-12) multivitamin (Multiple Vitamins) 1 tab PO QDAY #0 08/14/17 11/20/21 History levothyroxine 112 mcg capsule 112 mcg PO DAILY 05/28/18 12/04/21 History pramipexole 0.75 mg tablet 0.75 mg PO TID 05/28/18 11/20/21 History Respironics Dreamstation CPAP #1 ea 04/08/19 11/21/21 History epinastine 0.05 % eye drops 1 drp OPHTHALMIC (EYE) BID 11/13/19 11/20/21 History losartan 25 mg tablet 50 mg PO DAILY 11/13/19 12/04/21 History rosuvastatin 10 mg tablet 10 mg PO DAILY 10/01/21 12/04/21 History tolterodine 4 mg capsule,extended 4 mg PO DAILY 10/01/21 12/04/21 History release 24 hr calcium carbonate 600 mg calcium 600 mg PO DAILY #30 tab 11/23/21 12/04/21 Rx (1,500 mg) tablet (Calcium) cholecalciferol (vitamin D3) 125 5,000 unit PO DAILY #30 tab 11/23/21 12/04/21 Rx mcg (5,000 unit) tablet (Vitamin D3) fentanyl 12 mcg/hr transdermal 12 mcg TOPICAL Q72H #5 ea 11/23/21 Rx patch nifedipine 30 mg tablet,extended 30 mg PO DAILY #60 tab 11/23/21 12/04/21 Rx release 24 hr oxycodone 5 mg capsule 5 mg PO Q8H PRN #10 cap 11/23/21 Rx polyethylene glycol 3350 17 gram 17 gm PO DAILY #30 ea 11/23/21 12/04/21 Rx oral powder packet sennosides 8.6 mg tablet (senna) 8.6 mg PO BID #30 tab 11/23/21 12/04/21 Rx olopatadine 0.1 % eye drops 1 drp EYE-BOTH BID 12/04/21 12/04/21 History oxybutynin chloride 5 mg tablet 5 mg PO BEDTIME 12/04/21 12/04/21 History Allergies Allergy/AdvReac Type Severity Reaction Status Date / Time metoclopramide [From REGLAN] Allergy Severe UNCONTROLBLE Verified 11/05/21 13:16 LIMB MOVEMENTS Penicillins [PENICILLINS] Allergy Unknown RASH Verified 09/29/21 13:41 Sulfa (Sulfonamide Allergy Verified 09/29/21 13:41 Antibiotics) Review of Systems Review of Systems ROS: Yes All systems reviewed with the patient and are negative except as otherwise documented Exam Vital Signs (past 8 hours): - 12/04/21 02:00 12/04/21 06:00 Temperature 97.0 F L 97.2 F L Pulse Rate 64 62 Respiratory Rate 20 18 Blood Pressure 138/66 125/59 L Pulse Oximetry 98 97 Oxygen Flow Rate 0 Narrative Exam Narrative: Gen: Alert, oriented, thin 86 y.o. female, appears fatigued HEENT: normocephalic, atraumatic, conjunctiva clear, sclera non-icteric, oral mucosa pink and moist Neck: supple, full ROM, no JVD, trachea is midline Resp: Lungs CTA, non-labored breathing CV: RRR, no murmur or rubs Abd: soft, non-tender, normoactive BTs Skin: no lesions or rashes, dry and intact Neuro: Alert and oriented X 4 w/no focal deficits. Speech clear and coherent. Extremities: moves all 4 extremities, is ambulatory, negative Maribel?s sign Psyche: normal mood and affect. Objective Labs Result Diagrams: 12/03/21 21:50 12/03/21 21:50 Labs: Laboratory Results - last 24 hr 12/03/21 12/03/21 12/03/21 21:50 21:50 21:50 WBC 7.4 RBC 3.26 L Hgb 9.9 L Hct 29.2 L MCV 89.6 MCH 30.4 MCHC 34.0 RDW 16.1 H Plt Count 169 Neut % (Auto) 83.0 H Lymph % (Auto) 8.8 L [place] % (Auto) 6.4 Eos % (Auto) 0.9 L Baso % (Auto) 0.9 Neut # (Auto) 6200 Lymph # (Auto) 700 L [place] # (Auto) 500 Eos # (Auto) 100 Baso # (Auto) 100 Sodium 137 Potassium 4.2 Chloride 105 Carbon Dioxide 26 BUN 38 H Creatinine 0.78 Estimated GFR > 60.0 BUN/Creatinine Ratio 48.7 H Glucose 115 H Calcium 9.5 Magnesium 2.2 Total Bilirubin 0.6 AST 47 H ALT 25 Alkaline Phosphatase 79 Total Creatine Kinase 216 H CK-MB (CK-2) 4.01 H CK-MB (CK-2) Rel Index 1.9 Troponin I 0.016 NT-Pro-B Natriuret Pep 445 Total Protein 6.6 Albumin 3.7 Globulin 2.9 Albumin/Globulin Ratio 1.3 SARS-CoV-2 (PCR) Negative Assessment & Plan Assessment & Plan narrative: Dorothy Jacob is admitted for failure at home discharge from 10 days ago. 1. Fall at home, acute * I have ordered physical therapy again to assess her ability to return home safely and as well as a social work consult * Tylenol as needed for pain 2. Hypertension * continue losartan 25 mg daily 3. Hypothyroidism * continue home dose of levothyroxine 112 mcg po daily 4. Osteoporosis * likely contributing to multiple fractures * needs vit D and bisphosphonate, * start Calcium 600 and Vit D3 5000 units daily * defer bisphosphonate as outpatient 5. Multiple Sclerosis * not on treatment currently VTE Prophylaxis: Wells risk score 1.5 Enoxaparin 40 mg subQ once daily Bilateral SCDs Patient is placed into observation as her stay is not expected to exceed 2 midnights. FEN: IV fluids: NS at 100ml/hour, diet: cardiac, labs: CBC, C/BMP, liver enzymes, Mag, Consultants None Dispo: Unknown at this time, recommend rehab followed by terminal supervisor care. Code status: DNR/DNI as discussed with the patient who identifies her son-in-law as her surrogate and POA [X] I have utilized all available immediate resources to obtain, update, or review of the patient's current medications COVID-19 COVID-19 status: Negative Result date/Date tested (Pos, Neg/Pending): 12/04/21 Time Spent With Patient Critical Care time: I spent a total of [] minutes of critical care time on this patient's care today; this time is exclusive of procedural time. Quality VTE Deep Vein Thrombosis/Pulmonary Embolism Present on Admission: No MIPS - Admit I confirm the patient?s Advance Care Plan is present, Code status is documented, Surrogate decision maker is in patient?s record [If Yes, STOP here]: Yes MIPS - DC The patient has current or prior documentation of left ventricular ejection fraction (LVEF) less than 40%, or moderate or severely depressed left ventricular systolic function.: No
[2021-12-04 08:41] LABS: Add Manual Diff / Slide Review NO; Basophils Absolute Auto 100 /uL (0-100); Basophils Percent Auto 1.1 % (0-2); Eosinophils Absolute Auto 200 /uL (0-450); Eosinophils Percent Auto 2.6 % (2-4); Hematocrit 26.9 % (36-46); Hemoglobin 9.1 g/dL (12.0-16.0); Lymphocytes Absolute Auto 600 /uL (1100-4500); Lymphocytes Percent Auto 9.8 % (25-40); Mean Corpuscular HGB Conc 33.9 % (30-36); Mean Corpuscular Hemoglobin 30.5 PG (26-34); Mean Corpuscular Volume 90.1 fL (80-100); Monocytes Absolute Auto 400 /uL (0-900); Neutrophils Absolute Auto 4800 /uL (1500-7000); Neutrophils Percent Auto 79.5 % (50-75); Platelet Count 154 X10^3/uL (150-400); Red Blood Cell Count 2.99 X10^6/uL (4.0-5.2); Red Cell Distribution Width 16.2 % (11.6-14.8)
[2021-12-04 08:47] LABS: Alanine Aminotransferase 24 IU/L (<35); Albumin 3.1 g/dL (3.5-5.0); Albumin Globulin Ratio 1.2 (1.0-2.8); Alkaline Phosphatase 74 U/L (38-126); Aspartate Aminotransferase 47 IU/L (14-36); BUN Creatinine Ratio 45.8 (6-22); Bilirubin Total 0.5 mg/dL (0.2-1.3); Bilirubin Unconjugated 0.6 mg/dL (0.0-1.1); Blood Urea Nitrogen 33 mg/dL (7-17); Calcium 8.6 mg/dL (8.4-10.2); Carbon Dioxide 27 mmol/L (22-32); Chloride 108 mmol/L (98-107); Estimated Glomerular Filt Rate > 60.0 mL/min (>60); Globulin 2.6 g/dL (1.7-4.1); Glucose 82 mg/dL (80-110); HEMOLYSIS < 15 (0-50); Sodium 136 mmol/L (137-145); Total Protein 5.7 g/dL (6.3-8.2)
[2021-12-04] MEDS: SENNOSIDES 8.6 MG TABLET PO ×2 (09:11→20:01)
[2021-12-04] MEDS: ATORVASTATIN 20 MG TABLET PO (09:11)
[2021-12-04] MEDS: ASPIRIN EC 81 MG TABLET PO (09:11)
[2021-12-04] MEDS: ENOXAPARIN 40 MG/0.4 ML SYRINGE SUBCUT (09:12)
[2021-12-04] MEDS: OXYBUTYNIN 5 MG ER TAB 10 MG PO (09:12)
[2021-12-04] MEDS: PRAMIPEXOLE 0.25 MG TABLET 0.75 MG PO ×3 (09:12→20:01)
[2021-12-04] MEDS: CHOLECALCIFEROL (VITAMIN D3) 5,000 UNIT TABLET 5000 UNIT PO (09:12)
[2021-12-04] MEDS: NIFEdipine 30 MG TAB ER PO (09:12)
[2021-12-04] MEDS: polyethylene glycoL 3350 17 GM POWD.PACK PO (09:12)
[2021-12-04] MEDS: LOSARTAN 25 MG TABLET 50 MG PO (09:12)
--- NOTE | 2021-12-04 11:08 | PC.NURSE ---
Patient A/Ox3. Denies SOB, dizziness, lightheadedness. VSS, 98% on RA. Lungs CTA. Tele on. Edema noted bilateral legs and ankles. Patient using bedpan to void. Abd soft, nontender, reports last BM 12/03. Dressings intact on bilateral LE, allyvn on L buttock. Non-blanchable erythema noted on R buttock. Patient on waffle and repositioned for comfort and to alleviate pressure. Patient denies needs at this time, call light in reach. SCD's on bilaterally.
--- NOTE | 2021-12-04 13:20 | CM.IDA ---
Addendum entered by MARYLOU Taylor 12/04/21 13:43: ADD: Faxed [facility] in [place]. Faxed Donato Abdullahi (however they may not be able to secure auth since it's managed [facility]) SINDI Original Note: Initial DCP Assessment Note Pt is an 86 yo female, resident of [place], arrives after another GLF; patient had DC approx 10 days ago from after a prior GLF. Patient would benefit from SNF; according to notes reviewed from patient's last admission- patient's insurance did not come through with an authorization for SNF stay so patient was DC home to her apt at [facility] Will reattempt SNF placement during this observation stay. PCP: Blayne Sims Payer: Violeta RIZO Reviewed chart, met w/patient to introduce role and glean some information about events leading up to this admission: Patient continues to lives w/her dtr Donna, patient pays approx $600 extra per month for her dtr to live in her apt at [facility]. Dtr is unhealthy and cannot lift or pull much, patient states it's the only place she has to go and it's better than having no one to help me at all Patient states she had minimal visits from and found it extremely difficult to get up from her bed to ambulate anywhere in her apt, including a few steps to her BSC next to her bed. Patient hires someone from [facility] to assist her 3 times per month w/paperwork tasks like paying bills. Patient thinks she could ask this caregiver to help her more often. Patient agrees with this UNDERCOATER that she would benefit from an SKILLED NURSING for the halfway plan, and ideally a SNF for the short term. Patient willing to pay privately for SNF stay Patient would like to DC from to an [facility]; discussed barriers to this plan, ie length of process. Patient cannot remain in the hospital while an CH[facility]WICK is secured, patient will need to f/u on this upon DC, patient states understanding. Placed call to [facility], they do not have a female bed. In addition, they cannot accept patient under private payment until there is a denial from her insurance. They also cannot bill patient's insurance for therapy charges (if patient were privately paying room and board) because they are not in network. Placed call to Jolene at [facility]. Faxed referral. Faxed referral to [facility] and Concepcion Castro. [facility] currently has a COVID outbreak MARYLOU Shah Discharge Planning/Care Management CM Discharge Assessment Start: 12/04/21 13:10 Freq: Status: Active Protocol: Document 12/04/21 13:10 SINDI (Rec: 12/04/21 13:20 SINDI [id number]) Discharge Planning Assessment Assigned Ecology Teacher MARYLOU Miller DPOA/Assigned Designee Name Donna Hawleyghazal dtr Contact Information [phone] Advance Directives? Yes: Dtr will bring in copy of POLST for file Advance Directives on File No History Provided By Patient,Medical Record Has Patient been admitted in last 30 Yes days? Comment Patient admitted .-11.23.21 Wet home to [facility], via cabulance Prior Living Arrangements Apartment/Condo Household Members children Type of transporation used prior to Relies on Others admit Facility Name Admitted From: [facility] [address] Willing to Return to Facility? No: Want to go to a SNF Independent with ADL's No Is patient alert and oriented? 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 SNF/HH Preference No
--- NOTE | 2021-12-04 14:20 | PT.IIE ---
Medical History (Last Reviewed 12/04/21 @ 08:07 by ADRIANA Brower) Hyperlipidemia Hypertension, essential Hypothyroid Left femoral shaft fracture Multiple sclerosis Physical Therapy Inpatient Evaluation/Re-Eval M1 PT/OT-IP Prior Functional Status Start: 12/04/21 15:26 Freq: NEEDED Status: Active Protocol: Document 12/04/21 14:20 AB (Rec: 12/04/21 15:45 AB [id number]) Medical Review Prior Functional Status Medical History Reviewed Yes Communication able to make needs known; ELIM IRA Mobility and Gait pt stated that she is modified independent with all mobilities and ambulation using a 4WW. stated that she has been getting weak for the passed month Social History Household Members children Living Arrangements Apartment/Condo Number of Floors (Floors) One Floor Number of Stairs To Enter/Railing? pt lives at [facility] Home Environment Standard Height Toilet,Walk in Shower Home Equipment Four Wheel Walker,Bedside Commode,Raised Toilet Seat w/ Armrests,Shower Seat with Backrest,Hand Held Shower,Bed Rails,Grab Bars In Shower Additional Social History Comment pt's daughter lives with her at [facility] but daughter cannot assist pt due to her own medical limitations R sided bed rail M2 PT-IP Current Condition Start: 12/04/21 15:26 Freq: NEEDED Status: Active Protocol: Document 12/04/21 14:20 AB (Rec: 12/04/21 15:45 AB [id number]) Physical Therapy Current Condition Current Condition Evaluation Date 12/04/21 Treatment Diagnosis GLF; adult failure to thrive; MS; difficulty in walking Onset Date 12/04/20 M3 PT-IP Subjective Start: 12/04/21 15:26 Freq: NEEDED Status: Active Protocol: Document 12/04/21 14:20 AB (Rec: 12/04/21 15:45 AB [email or web address]) Subjective Physical Therapy Visit Type Type Initial Evaluation Visit Start Time 14:20 Visit Stop Time 15:15 Total Visit Minutes 55 Number of SENIOR CORPORATE ACCOUNTANT Visits 0 Physical Therapy Visit Comments Patient Comments agreeable to do PT; stated that she has to go to an LONGTERM due to her frequent falls Therapy Pain Assessment Pain When Pain Assessed At Rest Location Back Scale Used pain scale not stated Pain Management Techniques Distraction,Modification of Treatment,Re-positioning, Timing of Activity with Medications M4 PT-IP Mobility and Gait Start: 12/04/21 15:26 Freq: NEEDED Status: Active Protocol: Document 12/04/21 14:20 AB (Rec: 12/04/21 15:45 AB [email or web address]) PT-Bed Mobility Assessment Supine to Sit Supine to Sit Maximum Assistance,Head of Bed Elevated,Bedrails Scooting Scooting to Edge of Bed Maximum Assistance PT-Transfer Assessment Sit to and From Stand Sit to and from Stand Maximum Assistance,1 Person Assistance,2 Person Assistance ,Use of Upper Extremities Equipment Transfer Assistive Device Gait Belt,Front Wheeled Walker Orthotic/Prosthetic Devices or Brace: No Transfers Transfer Destination Chair Transfer Technique Stand Step Pivot Transfer Ability Level of Assist Maximum Assistance,1 Person Assistance,Use of Upper Extremities Comments Mobility Comments pt completed supine to sit max A and max cues. mod to max A for sitting balance on EOB with increase posterior trunk lean requiring cues to lean forward. pt completed sit to stand from EOB max A x 1-2 and max cues and completed step trasnfer to chair max A x 1 and max cues. pt agreed to do ambulation. completed sit to stand from the chair max A x 1 -2 and max cues and ambulated in room using FWW ~ 40 ft min to mod A and max cues. presents with decrease LE elevation and step length. pt agreed to stay up on chair. positioned on chair. call light and table placed within each. Gait Assessment Gait Gait Assistance Required: Minimum Assistance,Moderate Assistance,1 Person Assist Distance (Feet) 40 Able to Maintain Weight Bearing Status Yes During Gait Assistive Devices Assistive Device Gait Belt,Front Wheeled Walker Orthotic/Prosthetic Devices or Brace: No Gait Deviations General Gait Pattern Antalgic,Decreased Stride Length,Decreased Feet Clearance,Step-to Gait Factors Limiting Gait Function Factors Limiting Gait Function Decreased Activity Tolerance, Decreased Strength,Difficulty Following Directions,Poor Balance,Poor Safety Awareness Comments Gait Comments pls refer to mobility section for details PT-Balance Assessment Sitting Balance and Reactions Static Sitting Balance Ability Fair Dynamic Sitting Balance Ability Poor Standing Balance and Reactions Static Standing Balance Ability Poor Dynamic Standing Balance Ability Poor Device Used FWW M5 PT-IP Objective Assessments Start: 12/04/21 15:26 Freq: NEEDED Status: Active Protocol: Document 12/04/21 14:20 AB (Rec: 01/15/22 15:45 AB [id number]) Orientation Orientation/Cognition Level of Alertness Confusional State Orientation Name Language Function Ability Hard of Hearing Safety Awareness Decreased Safety Awareness Memory Description Short Term Impaired Gross Range of Motion Lower Extremity ROM Assessment Left Impaired Impairments LLE with increase extensor tone with resistance in flexion Strength Lower Extremity Strength Assessment Bilaterally Impaired Hip 3+/5 Knee 3+/5 Muscle Tone Muscle Tone WNL No Muscle Tone Location Left Lower Extremity Type of Tone Hypertonicity,Extensor Severity of Tone Moderate M6 PT-IP Treatment Start: 12/04/21 15:26 Freq: NEEDED Status: Active Protocol: Document 12/04/21 14:20 AB (Rec: 12/04/21 15:45 AB [id number]) Physical Therapy Treatment Education Education Provided Safety M7 PT-IP Assessment and Plan Start: 12/04/21 15:26 Freq: NEEDED Status: Active Protocol: Document 12/04/21 14:20 AB (Rec: 12/04/21 15:45 AB [email or web address]) PT Summary Assessment and Plan Potential Rehabilitation Potential Fair Status of Condition at Evaluation Evolving Summary Impairments Pain,ROM,Strength,Balance, Coordination,Sensation,Tone, Cognition,Bed Mobility, Transfers,Gait,Activity Tolerance Assessment Summary pt requiring max A for bed mobility and max A x 1-2 for transfers using fWW. able to ambulate using FWW min to mod A and max cues. pt has h/o frequent falls at home and is a high fall risk. pt lives with her daughter but her daughter will not be able to assist pt with mobility. pt has dx of MS also affecting overal strength and function. Pt will require SNF rehab at this time to improve strength and mobility independence. pt stated that she has been getting weaker due to MS and that she is aware that she needs a higher level of assistance. Pt is hoping to be able to eventually go to an [facility] and also informed Pt that she will eventually need a w/ c for mobility. Goals Bed Mobility Goal Minimal Assistance Transfer Goal Minimal Assistance,Front Wheeled Walker Gait Goal Minimal Assistance,Front Wheel Walker Gait Distance 100 Other Goals improve ambulation using 4WW SBA 200 ft Days to Meet Goals 10 Frequency of Treatment Frequency Of Treatment Once a Day Treatment Plan Physical Therapy Treatment Plan Bed Mobility Training,Transfer Training,Gait Training, Therapeutic Exercise,Balance Retraining,Discharge Planning, Hot or Cold Pack,Neuromuscular Re-ed,Coordination Retraining ,Manual Therapy Precautions Other Precautions falls Recommendations To Nursing Amount of Assist Needed 2 Person Assist Discharge Recommendations PT Discharge Recommendations SNF Rehab Equipment Needed for Home Before FWW: if pt goes home and not Discharge safe with 4WW Transportation Needs at Discharge Wheelchair/Cabulance
[2021-12-04] MEDS: ACETAMINOPHEN 325 MG TABLET 650 MG PO (15:23)
[2021-12-04] MEDS: IBUPROFEN 600 MG TABLET PO (16:38)
[2021-12-05] VITALS (8 sets, daily range): BP systolic 110–143; BP diastolic 50–68; PULSE 64–72; RESP 15–18; TEMP 36.2–36.9; O2SAT 94–96
[2021-12-05 05:57] LABS: Add Manual Diff / Slide Review NO; Basophils Absolute Auto 0 /uL (0-100); Basophils Percent Auto 0.7 % (0-2); Eosinophils Absolute Auto 100 /uL (0-450); Eosinophils Percent Auto 2.1 % (2-4); Hematocrit 28.2 % (36-46); Hemoglobin 9.5 g/dL (12.0-16.0); Lymphocytes Absolute Auto 600 /uL (1100-4500); Lymphocytes Percent Auto 9.8 % (25-40); Mean Corpuscular HGB Conc 33.8 % (30-36); Mean Corpuscular Hemoglobin 30.3 PG (26-34); Mean Corpuscular Volume 89.5 fL (80-100); Monocytes Absolute Auto 500 /uL (0-900); Monocytes Percent Auto 7.9 % (3-14); Neutrophils Absolute Auto 5100 /uL (1500-7000); Neutrophils Percent Auto 79.5 % (50-75); Platelet Count 152 X10^3/uL (150-400); Red Blood Cell Count 3.15 X10^6/uL (4.0-5.2); Red Cell Distribution Width 16.3 % (11.6-14.8); White Blood Cell Count 6.4 X10^3/uL (4.5-11.0)
[2021-12-05 06:01] LABS: Alanine Aminotransferase 25 IU/L (<35); Albumin Globulin Ratio 1.1 (1.0-2.8); Alkaline Phosphatase 70 U/L (38-126); Aspartate Aminotransferase 46 IU/L (14-36); BUN Creatinine Ratio 40.4 (6-22); Bilirubin Total 0.4 mg/dL (0.2-1.3); Bilirubin Unconjugated 0.4 mg/dL (0.0-1.1); Blood Urea Nitrogen 42 mg/dL (7-17); Calcium 8.8 mg/dL (8.4-10.2); Carbon Dioxide 27 mmol/L (22-32); Chloride 107 mmol/L (98-107); Estimated Glomerular Filt Rate 50.5 mL/min (>60); Globulin 2.7 g/dL (1.7-4.1); Glucose 90 mg/dL (80-110); HEMOLYSIS < 15 (0-50); Magnesium 2.1 mg/dL (1.6-2.3); Potassium 4.5 mmol/L (3.4-5.1); Sodium 135 mmol/L (137-145); Total Protein 5.7 g/dL (6.3-8.2)
[2021-12-05] MEDS: LEVOTHYROXINE 112 MCG TABLET PO (06:48)
[2021-12-05] MEDS: LOSARTAN 25 MG TABLET 50 MG PO (09:24)
[2021-12-05] MEDS: ENOXAPARIN 40 MG/0.4 ML SYRINGE SUBCUT (09:24)
[2021-12-05] MEDS: PRAMIPEXOLE 0.25 MG TABLET 0.75 MG PO ×3 (09:24→20:05)
[2021-12-05] MEDS: ATORVASTATIN 20 MG TABLET PO (09:24)
[2021-12-05] MEDS: CHOLECALCIFEROL (VITAMIN D3) 5,000 UNIT TABLET 5000 UNIT PO (09:24)
[2021-12-05] MEDS: ASPIRIN EC 81 MG TABLET PO (09:24)
[2021-12-05] MEDS: SENNOSIDES 8.6 MG TABLET PO ×2 (09:25→20:05)
[2021-12-05] MEDS: NIFEdipine 30 MG TAB ER PO (09:26)
[2021-12-05] MEDS: OXYBUTYNIN 5 MG ER TAB 10 MG PO (09:27)
[2021-12-05] MEDS: polyethylene glycoL 3350 17 GM POWD.PACK PO (09:27)
[2021-12-05] MEDS: IBUPROFEN 600 MG TABLET PO (09:27)
--- NOTE | 2021-12-05 10:32 | PC.NURSE ---
Patient A/O x 3. Resting in bed, eating breakfast. Denies SOB, endorses intermittent coughing d/t esophagus, belching noted. Sputum. Patient reported back pain this AM, medicated with PRN Ibuprofen and repositioned. Tele on, NSR, 94% on RA, afebrile. Lungs CTA. Legs elevated for comfort. RLE medial and lateral ankle duoderm dressings intact, 2+pitting edema noted. LLE, medial Mepilex dsgs x 2 remain intact. Patient denies pain in legs. SCD's on bilaterally. Brief in place, this morning patient reports burning with urination. BT active x 4, abdomen soft and non-tender this AM. Call light in reach, hearing aides in, patient denies further needs at this time. Will continue to monitor.
--- NOTE | 2021-12-05 15:14 | CM.DPC ---
DCP/continued: Reviewed chart. CM team hopeful patient will either get authorized for SNF or additional care giving hours in the home? Placed calls to both [facility] and [facility] both facilities reviewing for admit and Macey confirms that [facility] does have contract. Left vm with Jolene at [facility] as well. P: Pending. Hopeful paient will be authorized for SNF. CM team following closely. BART
--- NOTE | 2021-12-05 15:35 | PT.IPTN ---
Physical Therapy Treatment Note M2 PT-IP Current Condition Start: 12/04/21 15:26 Freq: NEEDED Status: Active Protocol: Document 12/04/21 14:20 AB (Rec: 12/04/21 15:45 AB [id number]) Physical Therapy Current Condition Current Condition Evaluation Date 12/04/21 Treatment Diagnosis GLF; adult failure to thrive; MS; difficulty in walking Onset Date 12/04/20 M3 PT-IP Subjective Start: 12/04/21 15:26 Freq: NEEDED Status: Active Protocol: Document 12/05/21 15:17 LJ (Rec: 12/05/21 15:35 LJ [id number]) Subjective Physical Therapy Visit Type Type Treatment Note Visit Start Time 14:15 Visit Stop Time 14:41 Total Visit Minutes 26 Number of CONTACT REPRESENTATIVE Visits 1 Physical Therapy Visit Comments Patient Comments agreeable to do PT; stated that she has to go to an [facility] due to her frequent falls Therapy Pain Assessment Pain When Pain Assessed At Rest Location Back Intensity 2 Scale Used Numeric (0 - 10) Description Dull,With Movement Pain Management Techniques Distraction,Modification of Treatment,Re-positioning, Timing of Activity with Medications M4 PT-IP Mobility and Gait Start: 12/04/21 15:26 Freq: NEEDED Status: Active Protocol: Document 12/05/21 15:17 LJ (Rec: 12/05/21 15:35 LJ [id number]) PT-Bed Mobility Assessment Supine to Sit Supine to Sit Maximum Assistance,Head of Bed Elevated,Bedrails Scooting Scooting to Edge of Bed Maximum Assistance Scooting Up and Down in Bed Moderate Assistance PT-Transfer Assessment Sit to and From Stand Sit to and from Stand Maximum Assistance,1 Person Assistance,Use of Upper Extremities Equipment Transfer Assistive Device Gait Belt,Front Wheeled Walker Orthotic/Prosthetic Devices or Brace: No Transfers Transfer Destination Bed Transfer Ability Level of Assist Maximum Assistance,1 Person Assistance,Use of Upper Extremities Comments Mobility Comments Pt in bed upon arrival. Willing to sit on the side of the bed and attempt to stand. She states she is feeling very weak and knows she needs to move. Head of bed elevated maximally. Pt required ModA moving LEs to side of bed and VC to positin hands and push herself to fully sitting posture. Pt sat on side of bed for 3 minutes bracing with LEs and feet on floor. She then attempted to stand with MaxA but immediately sat back in bed.Second attempt, pt able to come to almost complete standing and stood with ModA for balance for 10 seconds before sitting back down on the bed. Third attempt, pt was able to remain standing for 20 seconds with ModA. She sat back down in bed and attepted to scoot herself toward the head of the bed but was unable to lift her buttocks or use her UEs to pull herself up. She stated she needed a bed kothari for a bowl movement so nurse was called. Pt was left in the bed under the care of nursing. Gait Assessment Comments Gait Comments unable at this time M5 PT-IP Objective Assessments Start: 12/04/21 15:26 Freq: NEEDED Status: Active Protocol: Document 12/04/21 14:20 AB (Rec: 12/04/21 15:45 AB [email or web address]) Orientation Orientation/Cognition Level of Alertness Confusional State Orientation Name Language Function Ability Hard of Hearing Safety Awareness Decreased Safety Awareness Memory Description Short Term Impaired Gross Range of Motion Lower Extremity ROM Assessment Left Impaired Impairments LLE with increase extensor tone with resistance in flexion Strength Lower Extremity Strength Assessment Bilaterally Impaired Hip 3+/5 Knee 3+/5 Muscle Tone Muscle Tone WNL No Muscle Tone Location Left Lower Extremity Type of Tone Hypertonicity,Extensor Severity of Tone Moderate M6 PT-IP Treatment Start: 12/04/21 15:26 Freq: NEEDED Status: Active Protocol: Document 12/05/21 15:17 LJ (Rec: 12/05/21 15:35 LJ [id number]) Physical Therapy Treatment Exercises Exercises Ankle Pumps,Gluteal Sets,Quad Sets,Heel Slides Education Education Provided Safety M7 PT-IP Assessment and Plan Start: 12/04/21 15:26 Freq: NEEDED Status: Active Protocol: Document 12/05/21 15:17 LJ (Rec: 12/05/21 15:35 LJ [id number]) PT Summary Assessment and Plan Potential Rehabilitation Potential Fair Status of Condition at Evaluation Evolving Summary Impairments Pain,ROM,Strength,Balance, Coordination,Sensation,Tone, Cognition,Bed Mobility, Transfers,Gait,Activity Tolerance Assessment Summary Pt requiring ModAto MaxA for bed mobility getting LEs off the bed and scooting up to head of bed. ModA for pulling herself to full sitting posture on side of bed. She demonstrates posterior lean during beginning of sit>stand but will correct it with verbal and tactile cuing. She is currently unable to take steps and is very fearful of falling. She will need SNF to progress strength, mobility, and overall function Goals Bed Mobility Goal Minimal Assistance Transfer Goal Minimal Assistance,Front Wheeled Walker Gait Goal Minimal Assistance,Front Wheel Walker Gait Distance 100 Other Goals improve ambulation using 4WW SBA 200 ft Days to Meet Goals 10 Frequency of Treatment Frequency Of Treatment Once a Day Treatment Plan Physical Therapy Treatment Plan Bed Mobility Training,Transfer Training,Gait Training, Therapeutic Exercise,Balance Retraining,Discharge Planning, Hot or Cold Pack,Neuromuscular Re-ed,Coordination Retraining ,Manual Therapy Precautions Other Precautions falls Recommendations To Nursing Amount of Assist Needed 1 Person Assist Discharge Recommendations PT Discharge Recommendations SNF Rehab Equipment Needed for Home Before FWW: if pt goes home and not Discharge safe with 4WW Transportation Needs at Discharge Wheelchair/Cabulance
--- NOTE | 2021-12-05 16:43 | P.PN_ITS ---
Subjective Subjective Date Patient Seen: 12/05/21 Interval history: Will patient is an 86-year-old female who was admitted to the hospital following recurrent fall. Today she complains of some heartburn. She also has complaints about her heels. The patient has chronic ulcers on her lower extremities. Wounds are dressed at this time. Exam Vital Signs (past 8 hours): - 12/05/21 09:01 12/05/21 09:24 12/05/21 13:35 Temperature 97.7 F Pulse Rate 64 64 71 Respiratory Rate 18 16 Blood Pressure 110/53 L 136/68 Pulse Oximetry 94 96 Oxygen Delivery Method Room Air Oxygen Flow Rate 0 Narrative Exam Narrative: Pleasant female lying in bed in no obvious distress Resp Other: Lungs clear to auscultation Cardio Other: Cardiac exam: Regular rate and rhythm normal S1-S2 GI Other: Abdomen: Soft and nontender Skin Other: Right lower extremity with wounds in place dressings covering the lower extremity wounds Extrem Other: Extremities: No edema Objective Labs Result Diagrams: 12/05/21 05:40 12/05/21 05:40 Labs: Laboratory Results - last 24 hr 12/05/21 12/05/21 05:40 05:40 WBC 6.4 RBC 3.15 L Hgb 9.5 L Hct 28.2 L MCV 89.5 MCH 30.3 MCHC 33.8 RDW 16.3 H Plt Count 152 Neut % (Auto) 79.5 H Lymph % (Auto) 9.[address] [place] % (Auto) 7.9 Eos % (Auto) 2.1 Baso % (Auto) 0.7 Neut # (Auto) 5100 Lymph # (Auto) [address] [facility] [place] # (Auto) 500 Eos # (Auto) 100 Baso # (Auto) 0 Sodium 135 L Potassium 4.5 Chloride 107 Carbon Dioxide 27 BUN 42 H Creatinine 1.04 Estimated GFR 50.5 L BUN/Creatinine Ratio 40.4 H Glucose 90 Calcium 8.8 Magnesium 2.1 Total Bilirubin 0.4 Conjugated Bilirubin 0.0 Unconjugated Bilirubin 0.4 AST 46 H ALT 25 Alkaline Phosphatase 70 Total Protein 5.7 L Albumin 3.0 L Globulin 2.7 Albumin/Globulin Ratio 1.1 PFSH Medical History Hyperlipidemia Hypertension, essential Hypothyroid Left femoral shaft fracture Multiple sclerosis Surgical History H/O cataract removal with insertion of prosthetic lens H/O esophageal hernia repair Family History Father Asthma Mother Colon cancer Social History household members: children Smoking Status: Former smoker alcohol intake: current Assessment & Plan Assessment & Plan narrative: Fall at home, acute * I have ordered physical therapy again to assess her ability to return home safely and as well as a social work consult * Tylenol as needed for pain 2. Hypertension * continue losartan 25 mg daily 3. Hypothyroidism * continue home dose of levothyroxine 112 mcg po daily 4. Osteoporosis * likely contributing to multiple fractures * needs vit D and bisphosphonate, * start Calcium 600 and Vit D3 5000 units daily * defer bisphosphonate as outpatient 5. Multiple Sclerosis * not on treatment currently 6. GERD -will start PPI 7. Chronic venous stasis ulceration -continue wound Anticipate placement to senior living facility in the next 1-2 days Time Spent With Patient Critical Care time: I spent a total of [] minutes of critical care time on this patient's care today; this time is exclusive of procedural time. Quality VTE Deep Vein Thrombosis/Pulmonary Embolism Present on Admission: No
[2021-12-05] MEDS: PANTOPRAZOLE DR 20 MG TABLET 40 MG PO (17:46)
[2021-12-05] MEDS: SODIUM CHLORIDE 0.9% FLUSH 10 ML IV (20:05)
--- NOTE | 2021-12-05 21:32 | PC.NURSE ---
Patient is alert and oriented except did not know day of month. FOND DU LAC with bilateral hearing aids out for the night. HRR but has elevated BP of 143/66. Denied nausea. BT present and abdomen is soft. Denied dysuria, frequency or urgency with urination; voided per bedpan. Is able to turn when requested. Gait not assessed at this time but reportedly needs 2 assist + walker. 2+ bilateral LE edema. States she has chronic tingling of bilateral hands but has new tingling of bilateral feet; good pedal pulses. Dressings to chronic venous wounds on bilateral legs/feet are all CDI. Has Allevyn dressing to buttock which is also CDI. Bruise noted to coccyx area. Wearing bilateral calf SCD's. Denied pain at time of assessment. Fall risk score is high and bed alarm is activated.
[2021-12-06] VITALS (8 sets, daily range): BP systolic 111–132; BP diastolic 66–68; PULSE 64–80; RESP 16–18; TEMP 36.2–37; O2SAT 94–96
[2021-12-06] MEDS: LEVOTHYROXINE 112 MCG TABLET PO (06:01)
[2021-12-06 06:24] LABS: Add Manual Diff / Slide Review NO; Basophils Absolute Auto 100 /uL (0-100); Basophils Percent Auto 0.9 % (0-2); Eosinophils Absolute Auto 200 /uL (0-450); Eosinophils Percent Auto 2.8 % (2-4); Hematocrit 29.3 % (36-46); Hemoglobin 9.8 g/dL (12.0-16.0); Lymphocytes Absolute Auto 700 /uL (1100-4500); Lymphocytes Percent Auto 10.4 % (25-40); Mean Corpuscular HGB Conc 33.4 % (30-36); Mean Corpuscular Hemoglobin 30.3 PG (26-34); Mean Corpuscular Volume 90.5 fL (80-100); Monocytes Absolute Auto 500 /uL (0-900); Monocytes Percent Auto 8.1 % (3-14); Neutrophils Absolute Auto 4900 /uL (1500-7000); Neutrophils Percent Auto 77.8 % (50-75); Platelet Count 161 X10^3/uL (150-400); Red Blood Cell Count 3.24 X10^6/uL (4.0-5.2); White Blood Cell Count 6.2 X10^3/uL (4.5-11.0)
[2021-12-06 06:26] LABS: Alanine Aminotransferase 24 IU/L (<35); Albumin 3.1 g/dL (3.5-5.0); Albumin Globulin Ratio 1.1 (1.0-2.8); Alkaline Phosphatase 68 U/L (38-126); Aspartate Aminotransferase 42 IU/L (14-36); BUN Creatinine Ratio 40.8 (6-22); Bilirubin Total 0.4 mg/dL (0.2-1.3); Bilirubin Unconjugated 0.4 mg/dL (0.0-1.1); Blood Urea Nitrogen 31 mg/dL (7-17); Calcium 8.8 mg/dL (8.4-10.2); Carbon Dioxide 28 mmol/L (22-32); Chloride 105 mmol/L (98-107); Estimated Glomerular Filt Rate > 60.0 mL/min (>60); Globulin 2.8 g/dL (1.7-4.1); Glucose 99 mg/dL (80-110); HEMOLYSIS < 15 (0-50); Magnesium 1.9 mg/dL (1.6-2.3); Potassium 4.5 mmol/L (3.4-5.1); Sodium 134 mmol/L (137-145); Total Protein 5.9 g/dL (6.3-8.2)
[2021-12-06] MEDS: ASPIRIN EC 81 MG TABLET PO (08:18)
[2021-12-06] MEDS: ATORVASTATIN 20 MG TABLET PO (08:18)
[2021-12-06] MEDS: ENOXAPARIN 40 MG/0.4 ML SYRINGE SUBCUT (08:18)
[2021-12-06] MEDS: LOSARTAN 25 MG TABLET 50 MG PO (08:18)
[2021-12-06] MEDS: CHOLECALCIFEROL (VITAMIN D3) 5,000 UNIT TABLET 5000 UNIT PO (08:18)
[2021-12-06] MEDS: SENNOSIDES 8.6 MG TABLET PO ×2 (08:20→20:22)
[2021-12-06] MEDS: OXYBUTYNIN 5 MG ER TAB 10 MG PO (08:20)
[2021-12-06] MEDS: polyethylene glycoL 3350 17 GM POWD.PACK PO (08:20)
[2021-12-06] MEDS: PRAMIPEXOLE 0.25 MG TABLET 0.75 MG PO ×3 (08:20→20:22)
[2021-12-06] MEDS: NIFEdipine 30 MG TAB ER PO (08:20)
[2021-12-06] MEDS: SODIUM CHLORIDE 0.9% FLUSH 10 ML IV ×2 (08:21→20:24)
[2021-12-06] MEDS: IBUPROFEN 600 MG TABLET PO (08:29)
--- NOTE | 2021-12-06 10:08 | PT.IPTN ---
Physical Therapy Treatment Note M2 PT-IP Current Condition Start: 12/04/21 15:26 Freq: NEEDED Status: Active Protocol: Document 12/06/21 09:39 SP (Rec: 12/06/21 10:27 SP [id number]) Physical Therapy Current Condition Current Condition Evaluation Date 12/04/21 Treatment Diagnosis GLF; adult failure to thrive; MS; difficulty in walking Onset Date 12/04/20 M3 PT-IP Subjective Start: 12/04/21 15:26 Freq: NEEDED Status: Active Protocol: Document 12/06/21 09:39 SP (Rec: 12/06/21 10:27 SP [id number]) Subjective Physical Therapy Visit Type Type Treatment Note Visit Start Time 09:39 Visit Stop Time 10:08 Total Visit Minutes 29 Notes Vitals: elevated supine: 132//61 HR 67 , 95% onRA seated at EOB UE supported: 139/62 HR 67 seated in chair post mob: 131/ 63 HR 67 94% on RA. Pt reported little dizzy initially come to sitting but went away within in seconds. Number of FRIT COATER Visits 1 Physical Therapy Visit Comments Patient Comments agreeable to do PT. Pt reported having tinglingin L hand since here and when woke up this am tingling up into forarm now. Therapy Pain Assessment Pain When Pain Assessed During Mobility Pain Present Pain Present Pain Reported Location abdomen Intensity 3 Scale Used Numeric (0 - 10) Description Cramping,With Movement Pain Behaviors Facial Grimacing Pain Management Techniques Distraction,Re-positioning, Timing of Activity with Medications Back Intensity 2 Scale Used Numeric (0 - 10) Description Dull,With Movement Pain Management Techniques Distraction,Modification of Treatment,Re-positioning, Timing of Activity with Medications M4 PT-IP Mobility and Gait Start: 12/04/21 15:26 Freq: NEEDED Status: Active Protocol: Document 12/06/21 09:39 SP (Rec: 12/06/21 10:27 SP [id number]) PT-Bed Mobility Assessment Supine to Sit Supine to Sit Maximum Assistance,Head of Bed Elevated,Bedrails Scooting Scooting to Edge of Bed Moderate Assistance PT-Transfer Assessment Sit to and From Stand Sit to and from Stand Maximum Assistance,1 Person Assistance,Use of Upper Extremities Equipment Transfer Assistive Device Gait Belt,Front Wheeled Walker Orthotic/Prosthetic Devices or Brace: No Transfers Transfer Destination Chair Transfer Technique Stand Step Pivot Transfer Ability Level of Assist Maximum Assistance,1 Person Assistance,Use of Upper Extremities Comments Mobility Comments Pt elevated in bed when arrived. Instructed LE exercises AROM pre mob: AP, heel slide Andrei flexion, hip abd, reported little pian over anterior abdomen. Pt completed elevated supine>sit w/ use of bed rails, self LEs to EOB, Mod A for trunk righting to sit and and scoot to EOB with self trunk bal BUE on bed rail, bed handle and bed with cues for positioning. Sit>stand Max A x1 w/ therapist foot front prevent sliding forward, cued upright trunk over feet. SPT using FWW occasional cues and assist for FWW Mod A x1. Cued backup fully chair behind LEs and reach back, Min A for slow descent into chair, Andrei scoot back fully. Pt reported back hurt, need more help scoot back, Max A x2 2nd person assist of nurse. Pt reclined with all needs and call light in reach with chair alarm donned before left. Gait Assessment Gait Gait Assistance Required: Moderate Assistance,1 Person Assist Distance (Feet) 2 Able to Maintain Weight Bearing Status Yes During Gait Assistive Devices Assistive Device Gait Belt,Front Wheeled Walker Orthotic/Prosthetic Devices or Brace: No Gait Deviations General Gait Pattern Antalgic,Decreased Stride Length,Decreased Feet Clearance,Narrow Based Gait, Step-to Gait Factors Limiting Gait Function Factors Limiting Gait Function Decreased Activity Tolerance, Decreased Strength,Difficulty Following Directions,Pain,Poor Balance,Poor Safety Awareness Comments Gait Comments SPT only bed>chair w/ FWW Mod A x1, occasional assist for fWW support and max cues for pivot body awareness. PT-Balance Assessment Sitting Balance and Reactions Static Sitting Balance Ability Fair Dynamic Sitting Balance Ability Fair Standing Balance and Reactions Static Standing Balance Ability Fair Dynamic Standing Balance Ability Poor Device Used FWW M5 PT-IP Objective Assessments Start: 12/04/21 15:26 Freq: NEEDED Status: Active Protocol: Document 12/04/21 14:20 AB (Rec: 12/04/21 15:45 AB [id number]) Orientation Orientation/Cognition Level of Alertness Confusional State Orientation Name Language Function Ability Hard of Hearing Safety Awareness Decreased Safety Awareness Memory Description Short Term Impaired Gross Range of Motion Lower Extremity ROM Assessment Left Impaired Impairments LLE with increase extensor tone with resistance in flexion Strength Lower Extremity Strength Assessment Bilaterally Impaired Hip 3+/5 Knee 3+/5 Muscle Tone Muscle Tone WNL No Muscle Tone Location Left Lower Extremity Type of Tone Hypertonicity,Extensor Severity of Tone Moderate M6 PT-IP Treatment Start: 12/04/21 15:26 Freq: NEEDED Status: Active Protocol: Document 12/06/21 09:39 SP (Rec: 12/06/21 10:27 SP [id number]) Physical Therapy Treatment Exercises Exercises Ankle Pumps,Heel Slides,Supine Hip Abduction Education Education Provided Safety M7 PT-IP Assessment and Plan Start: 12/04/21 15:26 Freq: NEEDED Status: Active Protocol: Document 12/06/21 09:39 SP (Rec: 12/06/21 10:27 SP [id number]) PT Summary Assessment and Plan Potential Rehabilitation Potential Fair Status of Condition at Evaluation Evolving Summary Impairments Pain,ROM,Strength,Balance, Coordination,Sensation,Tone, Cognition,Bed Mobility, Transfers,Gait,Activity Tolerance Progress Towards Goals Progressing Toward Goals,Slow Progress due to Pain,Slow Progress due to Activity Tolerance Assessment Summary Pt improved in mobility, ModA for BM, Mod-Max A for transfer bed>chair w/ FWW. Pt will require SNF for progress strength and functional mobilty. will continue to assess progress. Goals Bed Mobility Goal Minimal Assistance Transfer Goal Minimal Assistance,Front Wheeled Walker Gait Goal Minimal Assistance,Front Wheel Walker Gait Distance 100 Other Goals improve ambulation using 4WW SBA 200 ft Days to Meet Goals 10 Frequency of Treatment Frequency Of Treatment Once a Day Treatment Plan Physical Therapy Treatment Plan Bed Mobility Training,Transfer Training,Gait Training, Therapeutic Exercise,Balance Retraining,Discharge Planning, Hot or Cold Pack,Neuromuscular Re-ed,Coordination Retraining ,Manual Therapy Other Recommendations and Next Treatment LE ex, transfers, gait w/ FWW Focus when able. Precautions Other Precautions falls Recommendations To Nursing Amount of Assist Needed 1 Person Assist Discharge Recommendations PT Discharge Recommendations SNF Rehab Equipment Needed for Home Before FWW: if pt goes home and not Discharge safe with 4WW Transportation Needs at Discharge Wheelchair/Cabulance
--- NOTE | 2021-12-06 11:23 | OT.IP.EVAL ---
Past Medical History (Last Reviewed 12/05/21 @ 01:50 by Villa Rose DO) H/O cataract removal with insertion of prosthetic lens H/O esophageal hernia repair Hyperlipidemia Hypertension, essential Hypothyroid Left femoral shaft fracture Multiple sclerosis Surgical History (Last Reviewed 12/05/21 @ 01:50 by Villa Rose DO) H/O cataract removal with insertion of prosthetic lens H/O esophageal hernia repair Occupational Therapy Inpatient Evaluation/Re-Eval M1 PT/OT-IP Prior Functional Status Start: 12/04/21 15:26 Freq: NEEDED Status: Active Protocol: Document 12/06/21 10:42 [facility] (Rec: 12/06/21 12:43 [facility] [id number]) Medical Review Prior Functional Status Medical History Reviewed Yes Communication able to make needs known; [employer] Mobility and Gait pt stated that she is modified independent with all mobilities and ambulation using a 4WW. stated that she has been getting weak for the passed month Activities of Daily Living and IADL's Pt states having more difficulty to do her socks and needing to use a sock aid to assist. Prior Functional Level (Other details) Pt states recently discharged from [facility] earlier this month and able to get around on her 4ww on her own and do her ADl needs. Social History Household Members children Living Arrangements Apartment/Condo Number of Floors (Floors) One Floor Number of Stairs To Enter/Railing? pt lives at [facility] Home Environment Standard Height Toilet,Walk in Shower Home Equipment Four Wheel Walker,Bedside Commode,Raised Toilet Seat w/ Armrests,Shower Seat with Backrest,Hand Held Shower,Bed Rails,Grab Bars In Shower Additional Social History Comment pt's daughter lives with her at [facility] but daughter cannot assist pt due to her own medical limitations R sided bed rail M2 OT-IP Current Condition Start: 12/06/21 12:25 Freq: Status: Active Protocol: Document 12/06/21 10:42 [facility] (Rec: 12/06/21 12:43 [facility] [id number]) Occupational Therapy Current Condition Current Condition Evaluation Date 12/06/21 Treatment Diagnosis GLF, Faiilure to thrive, MS, decreased mobility Diagnosis Onset Date 12/04/21 M3 OT- IP Subjective and Pain Start: 12/06/21 12:25 Freq: Status: Active Protocol: Document 12/06/21 10:42 [facility] (Rec: 12/06/21 12:43 [facility] [id number]) OT- Subjective Occupational Therapy Visit Type Type Initial Evaluation Visit Start Time 10:42 Visit Stop Time 11:23 Total Visit Minutes 41 Occupational Therapy Visit Comments Patient Comments Pt agreed to work with OT. Patient/Caregiver Goals To move to an [facility] and have use of wc for mobility needs. OT Pain Assessment Pain When Pain Assessed At Rest Pain Present Pain Present Denied Pain M4 OT- IP ADL's Start: 12/06/21 12:25 Freq: Status: Active Protocol: Document 12/06/21 10:42 [facility] (Rec: 12/06/21 12:43 [facility] [id number]) OT ADL-Grooming General Evaluation Areas Needing Assistance Retrieving/Set-up of Grooming Items OT ADL-Oral Care General Eval Oral Care Ability Independent Areas of Assistance Retrieving/Set-Up of Items Comments Oral Care Comments Able to do while seated. OT ADL-Dressing General Eval Lower Body Dressing Ability Maximum Assistance Comments OT Dressing Comments Pt needing assist to help take socks off as having difficulty to use the box toe cutter. Pt able to place socks on the socks aid and with ANNMARIE for guidance able to get socks on her feet. Due to weakness, pt will need extensive assist for all dressing needs at this time. OT ADL-Toileting General Evaluation Toileting Ability Total Assistance Areas Needing Assistance Empty Catheter or Colostomy Comments OT Toileting Comments Mcdonald in place. OT ADL-Bathing Comments OT Bathing Comments Sponge bath more appropriate at this time. M5 OT- IP IADL's Start: 12/06/21 12:25 Freq: Status: Active Protocol: Document 12/06/21 10:42 [facility] (Rec: 12/06/21 12:43 [facility] [id number]) OT-Instrumental Activities of Daily Living Home Safety Awareness Awareness of Need for Assistance at Home Good Awareness Medication Management Medication Management Comments uses pill organizer Money Management Money Management Comments Pt states does fro herself. M6 OT- IP Functional Cognition Start: 12/06/21 12:25 Freq: Status: Active Protocol: Document 12/06/21 10:42 [facility] (Rec: 12/06/21 12:43 [facility] [id number]) Cognitive Factors Limiting Selfcare Function Cognitive Ability Level of Alertness Alert Patient Orientation Name,Age,Place,Situation Attention Span Ability Capable of Focused Attention, Capable of Sustained Attention Ability to Follow Commands Able to Follow One Step Commands Cognitive Comments Cognitive Assessment Comments Pt able to follow commands for ADl and mobility needs. Continue to assess for cognitive needs. OT- Vision and Hearing OT- Hearing Assessment OT- Hearing Assessment Use of Hearing Aids OT- Vision Assessment Visual Acuity Glasses For Reading M7 OT- IP Mobility and Balance Start: 12/06/21 12:25 Freq: Status: Active Protocol: Document 12/06/21 10:42 [facility] (Rec: 12/06/21 12:43 [facility] [id number]) OT-Transfer Assessment Sit to and From Stand Sit to and from Stand Maximum Assistance Comments Mobility Comments Pt needing MAX AX to stand from the recliner and able to stand for 5 minutes with CGA to ANNMARIE for balance. OT- Balance Assessment Sitting Balance and Reactions Static Sitting Balance Ability Good Dynamic Sitting Balance Ability Fair Standing Balance and Reactions Static Standing Balance Ability Poor Comments Other Balance Tests/Deviations/Treatment Pt tends to lean on her heels : and when trying to get her weight over her feet tends to flex her back/trunk to compensate. Noted left knee swollen and not able to get in underneath her as well as the right leg. M8 OT- IP Objective Assessments Start: 12/06/21 12:25 Freq: Status: Active Protocol: Document 12/06/21 10:42 [facility] (Rec: 12/06/21 12:43 [facility] [id number]) OT Gross Range of Motion Upper Extremity Range of Motion Assessment Bilaterally Impaired ROM Impairments Pt needing assist of LUE to help raise RUE up and unable to lift LUE above 45 degrees at this time. OT Strength Upper Extremity Strength Assessment Bilaterally Impaired OT- Coordination Assessment Comments Coordination Comments Arthritic changes in hands. Pt needing assist to help open items. M9 OT- IP Assessment and Plan Start: 12/06/21 12:25 Freq: Status: Active Protocol: Document 12/06/21 10:42 [facility] (Rec: 12/06/21 12:43 [facility] [id number]) OT Summary Assessment and Plan Potential Rehabilitation Potential Good Analytic Complexity at Evaluation Moderate Summary OT Impairments Pain,Strength,Balance, Coordination,Functional Mobility,Self-Feeding,Grooming ,Dressing,Toileting,Bathing, Toilet Transfers,Shower Transfers,Activity Tolerance Progress Towards Goals Slow Progress due to Pain,Slow Progress due to Medical Issues,Slow Progress due to Activity Tolerance Assessment Summary Pt here due to weakness and recent GLF. Pt now needing extensive assist for all ADl and mobility needs. Pt would benefit from skilled rehab to help increase her independence and safety for ADL and mobility needs. Pt agrees would benefit from [facility]. Goals Grooming Goal Independent Dressing Goal Independent Toileting Goal Independent Bathing Goal Independent Toilet Transfer Goal Independent Shower Transfer Goal Independent Days to Meet Goals 20 Frequency of Treatment Frequency Of Treatment Once a Day Treatment Plan OT Treatment Plan ADL Training,Functional Cognition Training,Functional Mobility,Therapeutic Exercises ,Patient/Family Education, Discharge Planning Other Treatment Recommendations and Next Sponge bath versus shower Treatment Focus Discharge Recommendations OT Discharge Recommendations SNF Rehab Transportation Needs at Discharge Wheelchair/Cabulance
--- NOTE | 2021-12-06 14:11 | P.PN_ITS ---
Subjective Subjective Date Patient Seen: 12/06/21 Interval history: The patient is an 86-year-old female who was admitted to the hospital following a fall. She is awaiting placement. She denies any heartburn today. She has no other specific complaints Exam Vital Signs (past 8 hours): - 12/06/21 07:00 12/06/21 08:00 12/06/21 08:18 Temperature 98.3 F Pulse Rate 64 64 Respiratory Rate 16 Blood Pressure 132/66 132/66 Pulse Oximetry 94 95 12/06/21 08:57 Temperature Pulse Rate 64 Respiratory Rate 16 Blood Pressure Pulse Oximetry 94 Oxygen Delivery Method Room Air Oxygen Flow Rate 0 Narrative Exam Narrative: Pleasant female lying in bed in no acute distress Resp Other: Lungs clear to auscultation Cardio Other: Cardiac exam: Regular rate rhythm normal S1-S2 with a 2/6 systolic ejection GI Other: Abdomen soft nontender nondistended Extrem Other: Extremities: Right lower extremity with 2 venous stasis ulcers both of which are covered with dressing Objective Labs Result Diagrams: 12/06/21 06:05 12/06/21 06:05 Labs: Laboratory Results - last 24 hr 12/06/21 12/06/21 06:05 06:05 WBC 6.2 RBC 3.24 L Hgb 9.8 L Hct 29.3 L MCV 90.5 MCH 30.3 MCHC 33.4 RDW 16.0 H Plt Count 161 Neut % (Auto) 77.8 H Lymph % (Auto) 10.[address] [place] % (Auto) 8.1 Eos % (Auto) 2.8 Baso % (Auto) 0.9 Neut # (Auto) 4900 Lymph # (Auto) [address] [place] # (Auto) 500 Eos # (Auto) 200 Baso # (Auto) 100 Sodium 134 L Potassium 4.5 Chloride 105 Carbon Dioxide 28 BUN 31 H Creatinine 0.76 Estimated GFR > 60.0 BUN/Creatinine Ratio 40.8 H Glucose 99 Calcium 8.8 Magnesium 1.9 Total Bilirubin 0.4 Conjugated Bilirubin 0.0 Unconjugated Bilirubin 0.4 AST 42 H ALT 24 Alkaline Phosphatase 68 Total Protein 5.9 L Albumin 3.1 L Globulin 2.8 Albumin/Globulin Ratio 1.1 PFSH Medical History Hyperlipidemia Hypertension, essential Hypothyroid Left femoral shaft fracture Multiple sclerosis Surgical History H/O cataract removal with insertion of prosthetic lens H/O esophageal hernia repair Family History Father Asthma Mother Colon cancer Social History household members: children Smoking Status: Former smoker alcohol intake: current Assessment & Plan Assessment & Plan narrative: Fall at home, acute * I have ordered physical therapy again to assess her ability to return home safely and as well as a social work consult * Tylenol as needed for pain2. Hypertension * continue losartan 25 mg daily3. Hypothyroidism * continue home dose of levothyroxine 112 mcg po daily4. Osteoporosis * likely contributing to multiple fractures * needs vit D and bisphosphonate, * start Calcium 600 and Vit D3 5000 units daily * defer bisphosphonate as outpatient5. Multiple Sclerosis * not on treatment currently 6. GERD -will start PPI 7. Chronic venous stasis ulceration -continue wound Anticipate placement to group home facility in the next 1-2 days No new issues today. Patient is awaiting placement. She is hopeful to go to group home and ultimately transition to an adult family home Time Spent With Patient Critical Care time: I spent a total of [] minutes of critical care time on this patient's care today; this time is exclusive of procedural time. Quality VTE Deep Vein Thrombosis/Pulmonary Embolism Present on Admission: No
--- NOTE | 2021-12-06 15:19 | PC.NURSE ---
Patient has been up to the chair most of the afternoon. VSS, 94-95% on RA, lungs CTA. Intermittent wet cough. Denies pain at this time. Given PRN Ibuprofen earlier this morning for reported R forearm pain. Patient denies chest pain, SOB, dizziness or lightheadedness. Bilateral 2-3+ pitting edema noted in lower extremities. Dressings remain CDI. SCD's on bilaterally. Call light in reach, chair alarm on.
--- NOTE | 2021-12-06 16:26 | CM.DPC ---
DCP/continued: Reviewed chart. Current recommendation is for patient to go to SNF. Several SNF's have been faxed and no response received. [employer] spoke with Macey at [facility] this AM. Macey believes that they will be able to accept once she obtains authorization. Macey reports that she will call payor in AM to attempt authorization. P: SNF pending. BART
--- NOTE | 2021-12-06 23:55 | PC.NURSE ---
Patient is alert and oriented with some delay in responding at times. Breath sounds CTA with RA sat of 95%. HRR w/murmur. Denied nausea. BT present and abdomen is soft; had BM. Denied dysuria, frequency or urgency with urination. Is able to move self in bed. Up to BSC and ambulated around room with 2 assists; takes 2 to get her to standing position and then walks well with 1 assist. Dressings to buttocks, right forearm, right medial/lateral ankles and left LE all CDI. Denied pain. Wearing bilateral calf SCD's. Fall risk score is high and bed alarm is activated.
[2021-12-07] MEDS: IBUPROFEN 600 MG TABLET PO ×2 (00:41→11:14)
[2021-12-07 03:48] VITALS: BP 111/58; PULSE 67; RESP 16; TEMP 36.4; O2SAT 93
[2021-12-07] MEDS: LEVOTHYROXINE 112 MCG TABLET PO (05:53)
[2021-12-07 05:56] VITALS: BP 101/52; PULSE 84; RESP 16; TEMP 36.6; O2SAT 94
[2021-12-07 07:00] VITALS: O2SAT 95
[2021-12-07 07:55] VITALS: BP 139/61; PULSE 68; RESP 19; TEMP 37; O2SAT 93
[2021-12-07] MEDS: CHOLECALCIFEROL (VITAMIN D3) 5,000 UNIT TABLET 5000 UNIT PO (09:47)
[2021-12-07] MEDS: ATORVASTATIN 20 MG TABLET PO (09:47)
[2021-12-07 09:48] VITALS: BP 139/61; PULSE 68
[2021-12-07] MEDS: PRAMIPEXOLE 0.25 MG TABLET 0.75 MG PO (09:48)
[2021-12-07] MEDS: LOSARTAN 25 MG TABLET 50 MG PO (09:48)
[2021-12-07] MEDS: OXYBUTYNIN 5 MG ER TAB 10 MG PO (09:48)
[2021-12-07] MEDS: ENOXAPARIN 40 MG/0.4 ML SYRINGE SUBCUT (09:48)
[2021-12-07] MEDS: NIFEdipine 30 MG TAB ER PO (09:48)
[2021-12-07] MEDS: SODIUM CHLORIDE 0.9% FLUSH 10 ML IV (09:49)
[2021-12-07] MEDS: ASPIRIN EC 81 MG TABLET PO (09:49)
--- NOTE | 2021-12-07 09:59 | PT.IPTN ---
Physical Therapy Treatment Note M2 PT-IP Current Condition Start: 12/04/21 15:26 Freq: NEEDED Status: Active Protocol: Document 12/07/21 09:31 SP (Rec: 12/07/21 10:30 SP [id number]) Physical Therapy Current Condition Current Condition Evaluation Date 12/04/21 Treatment Diagnosis GLF; adult failure to thrive; MS; difficulty in walking Onset Date 12/04/20 M3 PT-IP Subjective Start: 12/04/21 15:26 Freq: NEEDED Status: Active Protocol: Document 12/07/21 09:31 SP (Rec: 12/07/21 10:30 SP [id number]) Subjective Physical Therapy Visit Type Type Treatment Note Visit Start Time 09:31 Visit Stop Time 09:59 Total Visit Minutes 28 Notes FRINGE MAKER notified DIGITAL ASSET COORDINATOR of posterior neck pain reported during tx. Pt getting closer to meeting POC goals. Number of FRINGE MAKER Visits 2 Physical Therapy Visit Comments Patient Comments Pt agreeable to working with therapy. She reported having pain posterior R side of neck just below occiput going up to head and difficulty holding head up sitting in bed. Therapy Pain Assessment Pain When Pain Assessed At Rest Pain Present Pain Present Pain Reported Location posterior neck/ Head R Scale Used no pain scale quantified Pain Behaviors Facial Grimacing,Holding Area Pain Management Techniques Distraction,Re-positioning M4 PT-IP Mobility and Gait Start: 12/04/21 15:26 Freq: NEEDED Status: Active Protocol: Document 12/07/21 09:31 SP (Rec: 12/07/21 10:30 SP [id number]) PT-Bed Mobility Assessment Supine to Sit Supine to Sit Contact Guard Assistance,1 Person Assistance,Head of Bed Elevated,Bedrails Scooting Scooting to Edge of Bed Contact Guard Assistance PT-Transfer Assessment Sit to and From Stand Sit to and from Stand Minimal Assistance,Moderate Assistance,1 Person Assistance ,Use of Upper Extremities Equipment Transfer Assistive Device Gait Belt,Front Wheeled Walker Orthotic/Prosthetic Devices or Brace: No Transfers Transfer Destination Chair,Bedside Commode Transfer Technique Stand Step Pivot Transfer Ability Level of Assist Minimal Assistance,1 Person Assistance,Use of Upper Extremities Comments Mobility Comments Pt reported posterior R side of neck musculature hurting, self massaging the muscles. Elevated supine>sit, scoot CGA with cues for UE positioning for self locomotion. FRINGE MAKER asked if needed to use BSC while mobilizing, pt declined. Sit> stand Min A for trunk stability with balance using FWW, cues for hand placement throughout for self mobility strength. Once coming to standing and 2 steps forward, pt had uncontrolled soft stool incident, DIGITAL ASSET COORDINATOR arrived assisted with BSC positioning, SPT Min A with pt self reposition FWW with cues for body awareness backing up tocommode, cued reach back Min A descend to BSC. FRINGE MAKER/ DIGITAL ASSET COORDINATOR assisted pt change of clothes and socks. Pt completed BM. SIt>stand Mod A x1 cued hip hinge push from BSC arms, Once in standing DIGITAL ASSET COORDINATOR assisted pericare and brief mgt. SPT to chair Min A, self FWW repositioning. Min A slow descend into chair with BUE. Pt unable to complete full scoot back due to chair to deep even with pillows, Max A x2 to complete back fully. FRINGE MAKER elevated LE rests and provided tray and all needs in reach, donned chair alarm for safety due to fall risk. DIGITAL ASSET COORDINATOR and nurse in room when left. FRINGE MAKER suggested calling house keeping assist sanitizing room / FWW. Gait Assessment Gait Gait Assistance Required: Minimum Assistance,1 Person Assist Distance (Feet) 4 Able to Maintain Weight Bearing Status Yes During Gait Assistive Devices Assistive Device Gait Belt,Front Wheeled Walker Orthotic/Prosthetic Devices or Brace: No Gait Deviations General Gait Pattern Antalgic,Decreased Stride Length,Decreased Feet Clearance,Narrow Based Gait, Step-to Gait Factors Limiting Gait Function Factors Limiting Gait Function Decreased Activity Tolerance, Decreased Strength,Pain,Poor Balance,Poor Safety Awareness Comments Gait Comments SPT only bed>BSC> chair only this tx due decreased activity tolerance. Will try progress distance gait next tx. PT-Balance Assessment Sitting Balance and Reactions Static Sitting Balance Ability Good Dynamic Sitting Balance Ability Fair Standing Balance and Reactions Static Standing Balance Ability Fair Dynamic Standing Balance Ability Fair Device Used FWW M5 PT-IP Objective Assessments Start: 12/04/21 15:26 Freq: NEEDED Status: Active Protocol: Document 12/04/21 14:20 AB (Rec: 12/04/21 15:45 AB [id number]) Orientation Orientation/Cognition Level of Alertness Confusional State Orientation Name Language Function Ability Hard of Hearing Safety Awareness Decreased Safety Awareness Memory Description Short Term Impaired Gross Range of Motion Lower Extremity ROM Assessment Left Impaired Impairments LLE with increase extensor tone with resistance in flexion Strength Lower Extremity Strength Assessment Bilaterally Impaired Hip 3+/5 Knee 3+/5 Muscle Tone Muscle Tone WNL No Muscle Tone Location Left Lower Extremity Type of Tone Hypertonicity,Extensor Severity of Tone Moderate M6 PT-IP Treatment Start: 12/04/21 15:26 Freq: NEEDED Status: Active Protocol: Document 12/07/21 09:31 SP (Rec: 12/07/21 10:30 SP [id number]) Physical Therapy Treatment Exercises Exercises Ankle Pumps,Heel Slides Education Education Provided Safety Other Treatments Other Treatment Performed FRINGE MAKER provided light manual STMs to posterior neck musculature and educated self massage to decreased pain, little less tension. Notified DIGITAL ASSET COORDINATOR and asked for report to nurse. M7 PT-IP Assessment and Plan Start: 12/04/21 15:26 Freq: NEEDED Status: Active Protocol: Document 12/07/21 09:31 SP (Rec: 12/07/21 10:30 SP [id number]) PT Summary Assessment and Plan Potential Rehabilitation Potential Fair Status of Condition at Evaluation Evolving Summary Impairments Pain,ROM,Strength,Balance, Coordination,Sensation,Tone, Cognition,Bed Mobility, Transfers,Gait,Activity Tolerance Progress Towards Goals Progressing Toward Goals,Slow Progress due to Pain,Slow Progress due to Activity Tolerance Assessment Summary Pt progressing with mobility: CGA bed mob sup>sit (goal met) , Min- Mod A for sit>stand progressing w/ FWW and Min A for transfers (goal met), unable to progress gait w/ FWW due to decreased strength and activity tolerance further than SPT Min A. Pt will require SNF for progress strength and functional mobilty. will continue to assess progress. Goals Bed Mobility Goal Minimal Assistance Transfer Goal Minimal Assistance,Front Wheeled Walker Gait Goal Minimal Assistance,Front Wheel Walker Gait Distance 100 Other Goals improve ambulation using 4WW SBA 200 ft Days to Meet Goals 10 Frequency of Treatment Frequency Of Treatment Once a Day Treatment Plan Physical Therapy Treatment Plan Bed Mobility Training,Transfer Training,Gait Training, Therapeutic Exercise,Balance Retraining,Discharge Planning, Hot or Cold Pack,Neuromuscular Re-ed,Coordination Retraining ,Manual Therapy Other Recommendations and Next Treatment LE ex, STS for strengthening, Focus transfers, static stand march activity, progress gait w/ FWW when able. Precautions Other Precautions falls Recommendations To Nursing Amount of Assist Needed 1 Person Assist Discharge Recommendations PT Discharge Recommendations SNF Rehab Equipment Needed for Home Before FWW: if pt goes home and not Discharge safe with 4WW Transportation Needs at Discharge Wheelchair/Cabulance
[2021-12-07 10:28] VITALS: O2SAT 95
--- NOTE | 2021-12-07 12:55 | PM.DS.1 ---
History of Present Illness History of Present Illness Chief complaint: GLF, leg pain Narrative: Ki Chan: Dorothy Jacob is an 86 year old resident of [facility] was recently discharged 10 days ago for fall she took a home.? Today she presented to the emergency department with yet another fall at home.? She states she was unable to get up and called 911.? When asked about a previous admission and receiving home health services she stated that she never did hear from home health or physical therapy.? She states that she has to arrange all of her services.? She lives in an independent living situation at a senior housing facility where she also lives with her daughter. She previously and still states that her daughter does not help her out.? During her prior admission there was some concern as to whether there was enough space for her and whether not it was a safe living situation and just prior to discharge on November 23, they did file an APS referral.? Patient denies any shortness of breath, dizziness, chest pain, nausea vomiting, dysuria, diarrhea constipation.? She does have a longstanding history of osteoporosis. Chest x-ray ordered in the emergency department was negative for any acute process.? Patient is afebrile, blood pressure 125/59, heart rate 62, respiratory rate 18, oxygen saturation of 97% on room air, she weighs 58 kg with a BMI of 21.9.? She is mildly anemic with a hemoglobin and hematocrit of 9.9 and 29.2, platelet count is 169, glucose is mildly elevated 115, AST 47, total creatinine kinase was 216, CK-MB was 4.01, rest of her chemistries are unremarkable, COVID-19 PCR is negative. Discharge Providers Provider Date of admission: 12/04/21 00:01 Discharge Date: 12/07/21 Primary care physician: Blayne Sims MD Consults: 12/04/21 01:24 Consult to Physical Therapy Evaluate & Treat Comment: fall at home (again!), ? ability to live independ. Physician Instructions: Evaluate and Treat 12/04/21 08:11 Consult to NIGHT WORKER - [employer] Routine Comment: FTT, f/u APS readmit 12/04/21 13:37 Consult to Occupational Therapy Evaluate & Treat Comment: Physician Instructions: Evaluate and treat Discharge provider: Dax Zavala MD Summary Hospital Course Discharge Diagnosis: 1. Fall 2. Weakness 3. Hypertension 4. Hypothyroidism 5. Osteoporosis 6. GERD 7. Chronic venous stasis Hospital Course: Ms. Jacob has had multiple admissions to the hospital, primarily for falls and failure to thrive. She presented again for this same issue. There was no findings needing acute hospitalizations. She was notably weak after working with PT/OT. She was discharged to SNF for rehab. Exam Vital Signs (past 8 hours): Oxygen Delivery Method Room Air Oxygen Flow Rate 0 Narrative Exam Narrative: GEN: no acute distress PULM: clear bilaterally Objective Labs Result Diagrams: 12/06/21 06:05 12/06/21 06:05 [facility] Medical History Hyperlipidemia Hypertension, essential Hypothyroid Left femoral shaft fracture Multiple sclerosis Surgical History H/O cataract removal with insertion of prosthetic lens H/O esophageal hernia repair Family History Father Asthma Mother Colon cancer Social History household members: children Smoking Status: Former smoker alcohol intake: current Discharge Plan Discharge Plan Patient Disposition: SNF Provider Discharge Comment: Ms. Jacob came in after a fall. She has been to the hospital multiple times with falls. She has been weak. She has not been doing well at home despite referral for home health. She was discharged to SNF for PT/OT. I certify the postop hospital residential care is medically necessary on a continuing basis for any conditions for which he/ she received care during this hospitalization.: Yes The receiving facility has agreed to accept transfer and provide medical treatment.: Yes Discharge orders & Medications Prescriptions: Continued Restasis 0.05 % Dropperette 1 drp OPHTHALMIC (EYE) DIRECTED Qty: 0 0RF aspirin 81 mg Tablet,Delayed Release (Dr/Ec) 81 mg PO DAILY Qty: 0 0RF multivitamin [Multiple Vitamins] 1 EACH tablet 1 tab PO QDAY Qty: 0 0RF ascorbic acid (vitamin C) 500 MG tablet 500 mg PO QDAY Qty: 0 0RF cyanocobalamin (vitamin B-12) [Vitamin B-12] 5,000 MCG tablet, sublingual 5,000 mcg Sublingual QDAY Qty: 0 0RF tolterodine 4 mg Capsule,Extended Release 24hr 4 mg PO DAILY 0RF rosuvastatin 10 mg Tablet 10 mg PO DAILY 0RF nifedipine 30 mg Tablet Extended Release 24hr 30 mg PO DAILY Qty: 60 0RF sennosides [senna] 8.6 mg Tablet 8.6 mg PO BID Qty: 30 0RF polyethylene glycol 3350 17 gram Powder In Packet 17 gm PO DAILY Qty: 30 0RF calcium carbonate [Calcium 600] 600 mg calcium (1,500 mg) Tablet 600 mg PO DAILY Qty: 30 0RF cholecalciferol (vitamin D3) [Vitamin D3] 125 mcg (5,000 unit) Tablet 5,000 unit PO DAILY Qty: 30 0RF losartan 25 mg Tablet 50 mg PO DAILY 0RF epinastine 0.05 % Drops 1 drp OPHTHALMIC (EYE) BID 0RF Rx Instructions: instill 1 drop in both eyes twice daily olopatadine 0.1 % drops 1 drp EYE-BOTH BID 0RF oxybutynin chloride 5 mg tablet 5 mg PO BEDTIME 0RF oxycodone 5 mg capsule 5 mg PO Q8H PRN (Reason: pain) Qty: 10 0RF levothyroxine 112 mcg capsule 112 mcg PO DAILY 0RF pramipexole 0.75 mg tablet 0.75 mg PO TID 0RF Rx Instructions: take 1 tablet by mouth three times daily Discontinued fentanyl 12 mcg/hr Patch 72 Hour 12 mcg topical Q72H Qty: 5 0RF No Action (DME) Respironics Dreamstation CPAP Qty: 1 0RF Dose Instruction: As directed Label Comments: Pressure: 7-14 cmH2O DME: [facility] Rx Instructions: As directed Follow up/Referrals: Blayne Sims MD [Primary Care Provider] - Discharge Health Status Multidrug resistant organism: No MDRO Diet/Activity/Treatments Diet: Diet as Tolerated Liquid consistency: Normal/Thin Food texture: Regular [facility] Rehab type: Physical therapy, Occupational therapy and Speech therapy Discharge Data Primary Care Provider: Blayne Sims V Attending Provider: Guadalupe Chan VTE Deep Vein Thrombosis/Pulmonary Embolism Present on Admission: No
[2021-12-07 14:52] LABS: COVID19 -Nasal RAPID Negative (Negative)
--- NOTE | 2021-12-07 15:18 | PC.NURSE ---
A&Ox4 but can be forgetful. VSS. Very weak with transferring. Allyven dressings with bilateral buttocks for areas of redness as well as on the bilateral lower extremities. Having 4/10 pain in back and right side of her neck, alleviated with ibuprofen. Had an incontinent bowel episode this morning when working with PT, had loose stool. Held AM bowel meds. IV removed. Discharge paperwork given to transport. Wheeled off of unit at 1500.
--- NOTE | 2021-12-07 16:23 | CM.DANOTE ---
DCP/continued: Reviewed chart. Spoke with Macey at [facility] this AM. She reports that she expects authorization today. In the meantime, COVID test ordered. Met with patient to discuss plan. Patient aware and agreeable to go to [facility]. Received notification from Macey that they can accept and that patient will be picked up around 3:00pm. RN given number to call report. HAILEY/Julia asked to finalize d/c. Patient requesting that LIPCOAT SPRAYER call her daughter/Donna to inform her on plan. Left vm requesting return phone call. In addition, placed call to [facility] worker/Vera ph# [phone] left with patient's discharge disposition for outpatient follow up. P: [facility] today via cabulance. [facility]
== END 2021-12-07 15:00 ==
LOC: ED 23:28 → AC 12-04 00:02
PROVIDERS: Internal Medicine; Admitting Provider Nurse Practitioner Family; Emergency Provider Emergency Medicine; PCP Internal Medicine; Referring Provider Emergency Medicine; Visit Provider Nurse Practitioner Family
DX: R53.1 Weakness (principal); G35 Multiple sclerosis; E78.5 Hyperlipidemia, unspecified; E87.1 Hypo-osmolality and hyponatremia; W18.39XA Other fall on same level, initial encounter; Z91.81 History of falling; Y93.9 Activity, unspecified; Y92.009 Unspecified place in unspecified non-institutional (private) residence as the place of occurrence of the external cause; M81.0 Age-related osteoporosis without current pathological fracture; E03.9 Hypothyroidism, unspecified; I10 Essential (primary) hypertension; K21.9 Gastro-esophageal reflux disease without esophagitis; I87.8 Other specified disorders of veins; R62.7 Adult failure to thrive; Z20.822 Contact with and (suspected) exposure to COVID-19
CPT/HCPCS: 36415; 71045; 80048; 80053; 80076; 82550; 82553; 83735; 83880; 84484; 85025; 87635; 94760; 96360; 96361; 96372; 97162; 97166; 97530; 99284; C9803; G0378; J1650